=== PATIENT | female | born 1970 | race Caucasian/White ===

== ENCOUNTER → 2020-07-24 11:45 | Outpatient (BNVA) | payer MEDICAID, SELFPAY | PROVIDERS: PCP Nurse Practitioner Family; Referring Provider Nurse Practitioner Family; Visit Provider Nurse Practitioner Gerontology | DX: E11.65 Type 2 diabetes mellitus with hyperglycemia (principal); Z79.4 Long term (current) use of insulin; E78.5 Hyperlipidemia, unspecified; E55.9 Vitamin D deficiency, unspecified | CPT/HCPCS: 82947; 99212 ==

== ENCOUNTER 2020-07-25 11:49 | Emergency (ER) | payer MEDICAID, SELFPAY ==
[2020-07-25 11:59] VITALS: BP 111/71; BP 115/66; PULSE 86; PULSE 89; RESP 18; TEMP 37.1; O2SAT 99; BMI 37.5
--- NOTE | 2020-07-25 11:59 | ED_ITS ---
HPI - URI/Sore Throat General Chief Complaint: Chest Pain Stated Complaint: anxiety/cp Time Seen by Provider: 07/25/20 11:57 Source: patient Mode of arrival: ambulatory Limitations: language barrier ( patient is Amharic-speaking and all traction conducted a presence of charge coordinator) History of Present Illness HPI Narrative: 50-year-old female with past medical history that is significant for asthma /COPD, diabetes, hypertension, depression, anxiety disorder, chronic back pain, osteoarthritis and iron deficiency anemia presenting with complaint of resolved chest pain in the setting of an argument at GP's office. Patient reported that she went to the office for a routine visit without any complaints and there staff requested that appointment only done by proving that patient has negative COVID patient became upset and states she became emotional and there was a verbal argument during which she reported she has some palpitation like chest pain. States this is only brief and resolved no complaints did not really want to come here but was asked to come here. She additionally states she does have a negative COVID test which was recently done to prepare for this appointment however did not have the Opportunity to give this document to them. She denies any pains or discomforts states she does not really want to be here but would like to be discharged. She denies any SI or HI. Related Data Home Medications Medication Instructions Recorded Confirmed aspirin 81 mg tablet,delayed 81 mg PO DAILY 07/24/20 07/24/20 release blood sugar diagnostic #10 ea 07/24/20 07/24/20 blood-glucose meter #1 ea 07/24/20 07/24/20 cholecalciferol (vitamin D3) 50 50 mcg PO DAILY 07/24/20 07/24/20 mcg (2,000 unit) capsule docusate sodium 100 mg capsule 100 mg PO BID 07/24/20 07/24/20 dulaglutide 1.5 mg/0.5 mL 1.5 mg SUBCUT QWEEK 07/24/20 07/24/20 subcutaneous pen injector ferrous sulfate 325 mg (65 mg 325 mg PO DAILY 07/24/20 07/24/20 iron) tablet insulin glargine 100 unit/mL 8 unit SUBCUT BID ml 07/24/20 07/24/20 subcutaneous solution ipratropium 0.5 mg-albuterol 3 mg 3 ml INHALATION QID PRN 07/24/20 07/24/20 (2.5 mg base)/3 mL nebulization soln lancets 28 gauge #100 ea 07/24/20 07/24/20 levothyroxine 50 mcg capsule 50 mcg PO DAILY 07/24/20 07/24/20 loratadine 10 mg tablet 10 mg PO DAILY 07/24/20 07/24/20 metformin 500 mg tablet,extended 500 mg PO BID 07/24/20 07/24/20 release 24 hr naproxen 500 mg tablet 500 mg PO Q12H tab 07/24/20 07/24/20 pen needle, diabetic 32 gauge x #50 ea 07/24/20 07/24/20 quetiapine 100 mg tablet 100 mg PO BEDTIME 07/24/20 07/24/20 sertraline 50 mg tablet 50 mg PO DAILY 07/24/20 07/24/20 Previous Rx's Medication Instructions Recorded dicyclomine 20 mg tablet 20 mg PO TID #90 tab 06/17/20 insulin lispro 100 unit/mL 4 unit SUBCUT TID 90 Days #15 ml 07/24/20 subcutaneous pen Allergies Allergy/AdvReac Type Severity Reaction Status Date / Time lisinopril [LISINOPRIL] Allergy Unknown UNKNOWN Verified 07/24/20 12:03 Penicillins Allergy Unknown RASH Verified 07/24/20 12:03 sulfamethoxazole Allergy Unknown RASH Verified 07/24/20 12:03 trimethoprim Allergy Unknown RASH Verified 07/24/20 12:03 Review of Systems Review of Systems: Constitutional: No Weight loss, No Fever, No Chills, No Night Sweats, No Fatigue, No Malaise ENT/Mouth: No Hearing loss, No Ear Pain, No Nasal Congestion, No Sinus Pain, No Hoarseness, No sore throat, No Rhinorrhea, No Swallowing Difficulty Eyes: No Eye Pain, No Swelling, No Redness, No Foreign Body, No Discharge, No Vision Changes Cardiovascular: No Chest Pain, No SOB, No Dyspnea on Exertion, No Orthopnea, No Edema, No Palpitations Respiratory: No Cough, No Sputum, No Wheezing, No Smoke Exposure, No Dyspnea Gastrointestinal: No Nausea, No Vomiting, No Diarrhea, No Constipation, No abdominal Pain, No Hematochezia, No Melena Genitourinary: no irregular bleeding, No Dysuria, No Urinary Frequency, No Hematuria, No Urinary Incontinence, No Urgency, No Flank Pain, No Urinary Flow Changes, No Hesitancy Musculoskeletal: No joint pain, No Myalgias, No Joint Swelling Skin: No Skin Lesions, No rash Neuro: No Weakness, No Numbness, No Paresthesias, No Loss of Consciousness, No Dizziness, No Headache Psych: No Anxiety/Panic, No Depression, No SI/HI/AH/VH, No Social Issues Heme/Lymph: No Bruising, No Bleeding,No Lymphadenopathy Endocrine: No Polyuria, No Polydipsia, No Temperature Intolerance Yes all other systems are reviewed and are negative [facility] Past Medical History Medical History Anemia Anxiety Asthma Depression Hyperlipidemia LDL goal <100 Hypotension Migraine aura without headache Palpitations Type 2 diabetes mellitus with hyperglycemia, with long-term current use of insulin Vitamin D insufficiency Family History Family History (Updated 07/24/20 @ 12:04 by ANJANA oMntez) Mother Diabetes Brother Diabetes Social History Social History Advance Directives: No Advance Directives Information Provided: No Physical Exam Vital Signs: Vital Signs: Last Vital Signs Temp 98.7 F 07/25/20 11:59 Pulse 86 07/25/20 11:59 Resp 18 07/25/20 11:59 BP 115/66 07/25/20 11:59 Pulse Ox 99 07/25/20 11:59 Body Mass Index 37.5 reviewed Const: General: cooperative and healthy appearing; No acute distress or intoxicated appearing Nutritional Appearance: average body habitus Orientation/consciousness: patient oriented x3 HENMT: Head: Yes normal to inspection Ears: hearing grossly normal bilaterally Eyes: General: appearance normal, both eyes and all related structures Visual Perez: normal visual perez by confrontation Neck: Neck: Yes normal visual inspection and No tender Thyroid: Thyroid normal Chest: Chest palpation & inspection: normal inspection of the chest Breast/axilla inspection: normal inspection of the breasts Resp: Effort & Inspection: normal respiratory effort Auscultation: clear to auscultation bilaterally Cardio: Jugular venous distension: no JVD Rhythm: regular rhythm Heart sounds: S1 normal heart sound present and S2 normal heart sound present GI: Inspection: Yes normal to inspection Percussion: Yes normal to percussion Auscultation: normal bowel sounds : General: Yes no CVA tenderness Back/Spine/Pelvis: Back: no CVA tenderness Skin: General skin exam: no rashes or lesions noted Neuro: General: patient oriented x3 Extrem: General: Yes normal to inspection Course Course Course Narrative: in review 50-year-old female with significant history as noted above presenting with resolved palpitations like chest pain in the setting of a verbal argument. EKG on arrival shows normal sinus rhythm at rate 76 with no acute changes from the 10/03/2019 EKG. Patient states she feels fine and would like to go home and see her family and does not want to be here is not interested in having the episode of the palpitation like chest pain investigated here. I did discuss with her that given her history could be emotional verses cardiac in etiology however she states she is fine and understands and will come back if any concerns. No other social/ psychological concerns expressed at this time. MDM - URI/Sore Throat Medical Records Attestation: I reviewed the patient's medical records. Medical records narrative: admission/ discharge summary reviewed from 12/30/2018 visit ECG Data Interpretation: normal sinus rhythm Rate 76 AL interval [address] segment changes Compared to 10/03/2019 EKG Discharge Plan Discharge Clinical Impression: Emotional upset, Anxiety Patient Disposition: Home, Self-Care Instructions: Anxiety (ED) Prescriptions: No Action dicyclomine 20 mg tablet 20 mg PO TID Qty: 90 RF: 0 metformin 500 mg tablet extended release 24 hr 500 mg PO BID RF: 0 Lantus U-100 Insulin 100 unit/mL solution 8 unit subcut BID RF: 0 (DME) pen needle, diabetic [BD Ultra-Fine Haleigh Pen Needle] 32 gauge x 5/32 needle See Rx Instructions .ROUTE .MEDSUPPLY Qty: 50 RF: 0 (DME) lancets [FreeStyle Lancets] 28 gauge misc See Rx Instructions .ROUTE .MEDSUPPLY Qty: 100 RF: 0 (DME) blood-glucose meter [FreeStyle Lite Meter] Kit See Rx Instructions .ROUTE .MEDSUPPLY Qty: 1 RF: 0 (DME) FreeStyle Lite Strips Strip See Rx Instructions .ROUTE .MEDSUPPLY Qty: 10 RF: 0 quetiapine [Seroquel] 100 mg tablet 100 mg PO BEDTIME RF: 0 aspirin [Adult Low Dose Aspirin] 81 mg tablet,delayed release (DR/EC) 81 mg PO DAILY RF: 0 cholecalciferol (vitamin D3) 50 mcg (2,000 unit) capsule 50 mcg PO DAILY RF: 0 sertraline 50 mg tablet 50 mg PO DAILY RF: 0 levothyroxine 50 mcg capsule 50 mcg PO DAILY RF: 0 docusate sodium [Colace] 100 mg capsule 100 mg PO BID RF: 0 ferrous sulfate 325 mg (65 mg iron) tablet 325 mg PO DAILY RF: 0 ipratropium-albuterol 0.5 mg-3 mg(2.5 mg base)/3 mL solution for nebulization 3 ml inhalation QID PRNRF: 0 naproxen [Naprosyn] 500 mg tablet 500 mg PO Q12H RF: 0 loratadine 10 mg tablet 10 mg PO DAILY RF: 0 Trulicity 1.5 mg/0.5 mL pen injector 1.5 mg subcut QWEEK RF: 0 insulin lispro [Humalog KwikPen Insulin] 100 unit/mL insulin pen 4 unit subcut TID 90 Days Qty: 15 RF: 3 Referrals: Mehreen Sorto NP [Primary Care Provider] - 1 week
[2020-07-25 12:37] VITALS: PULSE 88
--- NOTE | 2020-07-26 | ECG_ITS ---
Test Reason : CHEST PAIN Blood Pressure : / mmHG Vent. Rate : 076 BPM Atrial Rate : 076 BPM P-R Int : 158 ms QRS Dur : 082 ms QT Int : 406 ms P-R-T Axes : 020 -45 022 degrees QTc Int : 456 ms Normal sinus rhythm Minimal criteria for LVH Abnormal ECG When compared with ECG of 03-OCT-2019 00:45, No significant change was found Referred By: Maggie Quevedo Electronically Signed By:SANDRA CHOUDHARY
== END 2020-07-25 12:39 | disposition home or self-care (01) ==
PROVIDERS: Emergency Provider Emergency Medicine; PCP Nurse Practitioner Family
DX: F41.9 Anxiety disorder, unspecified (principal); F48.9 Nonpsychotic mental disorder, unspecified; I10 Essential (primary) hypertension; E11.9 Type 2 diabetes mellitus without complications; F32.9 Major depressive disorder, single episode, unspecified; Z79.4 Long term (current) use of insulin; Z79.899 Other long term (current) drug therapy
CPT/HCPCS: 93005; 99283; 99284

== ENCOUNTER 2020-08-20 16:55 | Emergency (ER) | payer MEDICAID, SELFPAY ==
--- NOTE | 2020-08-20 17:20 | ED_ITS ---
HPI - General Adult General Stated complaint: Asthma Time Seen by Provider: 08/20/20 17:20 Related Data Home Medications Medication Instructions Recorded Confirmed aspirin 81 mg tablet,delayed 81 mg PO DAILY 07/24/20 07/24/20 release blood sugar diagnostic #10 ea 07/24/20 07/24/20 blood-glucose meter #1 ea 07/24/20 07/24/20 docusate sodium 100 mg capsule 100 mg PO BID 07/24/20 07/24/20 dulaglutide 1.5 mg/0.5 mL 1.5 mg SUBCUT QWEEK 07/24/20 07/24/20 subcutaneous pen injector ferrous sulfate 325 mg (65 mg 325 mg PO DAILY 07/24/20 07/24/20 iron) tablet insulin glargine 100 unit/mL 8 unit SUBCUT BID ml 07/24/20 07/24/20 subcutaneous solution ipratropium 0.5 mg-albuterol 3 mg 3 ml INHALATION QID PRN 07/24/20 07/24/20 (2.5 mg base)/3 mL nebulization soln lancets 28 gauge #100 ea 07/24/20 07/24/20 levothyroxine 50 mcg capsule 50 mcg PO DAILY 07/24/20 07/24/20 loratadine 10 mg tablet 10 mg PO DAILY 07/24/20 07/24/20 metformin 500 mg tablet,extended 500 mg PO BID 07/24/20 07/24/20 release 24 hr naproxen 500 mg tablet 500 mg PO Q12H tab 07/24/20 07/24/20 quetiapine 100 mg tablet 100 mg PO BEDTIME 07/24/20 07/24/20 sertraline 50 mg tablet 50 mg PO DAILY 07/24/20 07/24/20 Previous Rx's Medication Instructions Recorded dicyclomine 20 mg tablet 20 mg PO TID #90 tab 06/17/20 insulin lispro 100 unit/mL 4 unit SUBCUT TID 90 Days #15 ml 07/24/20 subcutaneous pen pen needle, diabetic 32 gauge x 1 ea MISCELLANEOUS BID #100 ea 08/06/20 cholecalciferol (vitamin D3) 50 2,000 unit PO DAILY #30 cap 08/20/20 mcg (2,000 unit) capsule Allergies Allergy/AdvReac Type Severity Reaction Status Date / Time lisinopril [LISINOPRIL] Allergy Unknown UNKNOWN Verified 07/24/20 12:03 Penicillins Allergy Unknown RASH Verified 07/24/20 12:03 sulfamethoxazole Allergy Unknown RASH Verified 07/24/20 12:03 trimethoprim Allergy Unknown RASH Verified 07/24/20 12:03 [facility] Past Medical History Medical History Anemia Anxiety Asthma Depression Hyperlipidemia LDL goal <100 Hypotension Migraine aura without headache Palpitations Type 2 diabetes mellitus with hyperglycemia, with long-term current use of insulin Vitamin D insufficiency Family History Family History (Updated 07/24/20 @ 12:04 by ANJANA Montez) Mother Diabetes Brother Diabetes Social History Social History Alcohol intake: never Course Course Course Narrative: 1719- This serves as a rapid medical exam. 50 yo female with past medical history of DM, asthma, HLD here with dry cough, LANDA x 5 days, chest and back pain with deep breathing, movement and palpation. Mild wheezing, stable saturation. Will check EKG, CXR, labs, 4 puffs of MDI.Deferred HPI, PE, ROS and further evaluation to primary provider. Discharge Plan Discharge Prescriptions: No Action dicyclomine 20 mg tablet 20 mg PO TID Qty: 90 RF: 0 pen needle, diabetic [BD Haleigh 2nd Gen Pen Needle] 32 gauge x 5/32 needle 1 ea miscellaneous BID Qty: 100 RF: 8 cholecalciferol (vitamin D3) 50 mcg (2,000 unit) capsule 2,000 unit PO DAILY Qty: 30 RF: 2 metformin 500 mg tablet extended release 24 hr 500 mg PO BID RF: 0 Lantus U-100 Insulin 100 unit/mL solution 8 unit subcut BID RF: 0 (DME) lancets [FreeStyle Lancets] 28 gauge misc See Rx Instructions .ROUTE .MEDSUPPLY Qty: 100 RF: 0 (DME) blood-glucose meter [FreeStyle Lite Meter] Kit See Rx Instructions .ROUTE .MEDSUPPLY Qty: 1 RF: 0 (DME) FreeStyle Lite Strips Strip See Rx Instructions .ROUTE .MEDSUPPLY Qty: 10 RF: 0 quetiapine [Seroquel] 100 mg tablet 100 mg PO BEDTIME RF: 0 aspirin [Adult Low Dose Aspirin] 81 mg tablet,delayed release (DR/EC) 81 mg PO DAILY RF: 0 sertraline 50 mg tablet 50 mg PO DAILY RF: 0 levothyroxine 50 mcg capsule 50 mcg PO DAILY RF: 0 docusate sodium [Colace] 100 mg capsule 100 mg PO BID RF: 0 ferrous sulfate 325 mg (65 mg iron) tablet 325 mg PO DAILY RF: 0 ipratropium-albuterol 0.5 mg-3 mg(2.5 mg base)/3 mL solution for nebulization 3 ml inhalation QID PRNRF: 0 naproxen [Naprosyn] 500 mg tablet 500 mg PO Q12H RF: 0 loratadine 10 mg tablet 10 mg PO DAILY RF: 0 Trulicity 1.5 mg/0.5 mL pen injector 1.5 mg subcut QWEEK RF: 0 insulin lispro [Humalog KwikPen Insulin] 100 unit/mL insulin pen 4 unit subcut TID 90 Days Qty: 15 RF: 3
[2020-08-20 17:21] VITALS: BP 146/78; PULSE 92; RESP 16; TEMP 36.8; O2SAT 96; BMI 37.5
--- NOTE | 2020-08-20 17:22 | XR_ITS ---
EXAMINATION: CHEST 2 VIEWS CLINICAL INFORMATION: Cough. COMPARISON: January 02, 2020. TECHNIQUE: PA and lateral views of the chest were obtained. FINDINGS: The cardiac silhouette is not enlarged. The mediastinal and hilar contours are unremarkable. There are neither pleural effusions nor pneumothoraces. There are no consolidations. The osseous structures are stable. Surgical clips are identified within the right upper quadrant. XR/XR chest 2V IMPRESSION: No evidence for acute disease.
[2020-08-20 21:18] LABS: Basophils Percent Auto 0.2 % (0-2); Hematocrit 39.9 % (37-47); Hemoglobin 13.4 g/dl (12.0-16.0); Imm Gran Abs Auto 0.07 X10*3/uL (0.00-0.03); Imm Gran Pct Auto 0.4 % (0.0-0.4); Lymphocytes Percent Auto 5.7 % (20-40); Mean Corpuscular HGB Conc 33.6 g/dl (31.0-35.0); Mean Corpuscular Hemoglobin 27.9 pg (27.0-33.0); Mean Platelet Volume 11.2 fL (9.4-12.3); Monocytes Absolute Auto 0.5 X10*3/uL (0.1-1.2); Monocytes Percent Auto 2.9 % (2-11); Neutrophils Absolute Auto 15.6 X10*3/uL (2.0-8.3); Neutrophils Percent Auto 90.8 % (45-73); Platelet Count 272 X10*3/uL (160-400); Red Blood Count 4.81 X10*6/uL (4.20-5.50); Red Cell Distribution Width 12.3 % (11.0-16.0); SCAN SMEAR FLAG 1; White Blood Count 17.2 X10*3/uL (4.8-10.8)
[2020-08-20 21:24] LABS: MANUAL DIFF FLAG SCAN
[2020-08-20 21:37] LABS: SLIDE REVIEW VERIFIED
[2020-08-20 21:56] LABS: Anion Gap 17 (12-20); Blood Urea Nitrogen 17 mg/dL (9-16); Calcium 9.7 mg/dL (8.4-10.2); Carbon Dioxide 31 mmol/L (22-29); Chloride 92 mmol/L (96-108); Creatinine Clr Calc Pharmacy 68.8; Estimated Glomerular Filt Rate > 60; Glucose Random 352 mg/dL (60-115); Potassium 4.4 mmol/l (3.3-5.1); Sodium 136 mmol/L (135-145)
== END 2020-08-21 00:23 | disposition left against medical advice (07) ==
PROVIDERS: Nurse Practitioner Family; Emergency Provider Emergency Medicine; PCP Nurse Practitioner Family
DX: J45.909 Unspecified asthma, uncomplicated (principal); Z79.899 Other long term (current) drug therapy
CPT/HCPCS: 36415; 71046; 80048; 85025; 99283

== ENCOUNTER → 2020-09-11 13:01 | Outpatient (BNVA) | payer MEDICAID, SELFPAY | PROVIDERS: PCP Nurse Practitioner Family; Visit Provider Dietitian, Registered ==

== ENCOUNTER 2020-09-17 00:51 | Emergency (ER) | payer MEDICAID, SELFPAY ==
[2020-09-17 01:01] VITALS: BP 115/47; PULSE 73; RESP 16; TEMP 36.6; O2SAT 98; BMI 41.6
--- NOTE | 2020-09-17 01:12 | ECG_ITS ---
Test Reason : CHEST PAIN Blood Pressure : / mmHG Vent. Rate : 080 BPM Atrial Rate : 080 BPM P-R Int : 164 ms QRS Dur : 082 ms QT Int : 396 ms P-R-T Axes : 037 -44 020 degrees QTc Int : 456 ms Normal sinus rhythm Left axis deviation Abnormal ECG When compared with ECG of 25-JUL-2020 11:59, No significant change was found Referred By: Frederick Jolly Electronically Signed By:OLIVIA MADERA MD
--- NOTE | 2020-09-17 01:12 | ED_ITS ---
HPI - Abdominal Pain General Chief Complaint: Chest Pain Stated Complaint: abdominal pain Time Seen by Provider: 09/17/20 01:03 Source: patient Mode of arrival: EMS Limitations: no limitations History of Present Illness HPI narrative: Patient with the history of chronic upper abdominal pain for about 2 months seen international account executive plan to get an endoscopy which has not been done yet comes here for the pain in the epigastric area going to the mid chest since last night patient taking Prilosec vomiting once or twice a day no abdominal distention no fever noted shortness of breath no diaphoresis patient received nitroglycerin by EMS without any significant relief MD elicited complaint: abdominal pain Pertinent past history: gastritis Onset (ago): month(s) (2) Pain Consistency: intermittent Location: epigastric Severity: mild Quality: dull Radiation: epigastric and chest Exacerbating factors: eating Relieving factors: nothing Associated symptoms: nausea and vomiting Related Data Home Medications Medication Instructions Recorded Confirmed aspirin 81 mg tablet,delayed 81 mg PO DAILY 07/24/20 07/24/20 release blood sugar diagnostic #10 ea 07/24/20 07/24/20 blood-glucose meter #1 ea 07/24/20 07/24/20 docusate sodium 100 mg capsule 100 mg PO BID 07/24/20 07/24/20 ferrous sulfate 325 mg (65 mg 325 mg PO DAILY 07/24/20 07/24/20 iron) tablet ipratropium 0.5 mg-albuterol 3 mg 3 ml INHALATION QID PRN 07/24/20 07/24/20 (2.5 mg base)/3 mL nebulization soln lancets 28 gauge #100 ea 07/24/20 07/24/20 levothyroxine 50 mcg capsule 50 mcg PO DAILY 07/24/20 07/24/20 loratadine 10 mg tablet 10 mg PO DAILY 07/24/20 07/24/20 metformin 500 mg tablet,extended 500 mg PO BID 07/24/20 07/24/20 release 24 hr naproxen 500 mg tablet 500 mg PO Q12H tab 07/24/20 07/24/20 quetiapine 100 mg tablet 100 mg PO BEDTIME 07/24/20 07/24/20 sertraline 50 mg tablet 50 mg PO DAILY 07/24/20 07/24/20 Previous Rx's Medication Instructions Recorded dicyclomine 20 mg tablet 20 mg PO TID #90 tab 06/17/20 insulin lispro 100 unit/mL 4 unit SUBCUT TID 90 Days #15 ml 07/24/20 subcutaneous pen pen needle, diabetic 32 gauge x 1 ea MISCELLANEOUS BID #100 ea 08/06/20 cholecalciferol (vitamin D3) 50 2,000 unit PO DAILY #30 cap 08/20/20 mcg (2,000 unit) capsule dulaglutide 0.75 mg/0.5 mL 0.75 mg SUBCUT QWEEK #2 ml 08/28/20 subcutaneous pen injector insulin glargine 100 unit/mL (3 24 unit SUBCUT BEDTIME #15 ml 08/28/20 mL) subcutaneous pen Allergies Allergy/AdvReac Type Severity Reaction Status Date / Time lisinopril [LISINOPRIL] Allergy Unknown UNKNOWN Verified 07/24/20 12:03 Penicillins Allergy Unknown RASH Verified 07/24/20 12:03 sulfamethoxazole Allergy Unknown RASH Verified 07/24/20 12:03 trimethoprim Allergy Unknown RASH Verified 07/24/20 12:03 Review of Systems Review of Systems Constitutional : No Weight loss, No Fever, No Chills ENT/Mouth : No sore throat, No Rhinorrhea Eyes: No Eye Pain, No Swelling Cardiovascular : +Chest Pain, no palpitations Respiratory : No Cough, No Sputum, no shortness of breath Gastrointestinal : ++Nausea, +Vomiting, No Diarrhea, +abdominal Pain, no black stools Genitourinary : No Dysuria, No Urinary Frequency Musculoskeletal : No joint pain, No Myalgias, No Joint Swelling Skin : No Skin Lesions, No rash Neuro : No Weakness, No Numbness, No Dizziness, No Headache Psych : No Anxiety/Panic, No Depression Heme/Lymph: No Bruising, No Lymphadenopathy Endocrine : No Polyuria, No Polydipsia All other systems reviewed and are negative Physical Exam Vital Signs: Vital Signs: Last Vital Signs Temp 97.9 F 09/17/20 01:01 Pulse 73 09/17/20 01:01 Resp 16 09/17/20 01:01 BP 115/47 L 09/17/20 01:01 Pulse Ox 98 09/17/20 01:01 Body Mass Index 41.6 Const: General: cooperative, healthy appearing, comfortable, no acute distress and well developed Orientation/consciousness: patient oriented x3 HENMT: Head: Yes normal to inspection and Yes normocephalic Ears: hearing g rossly normal bilaterally Mouth: Normal oral and palatal mucosa present Eyes: General: appearance normal, both eyes and all related structures Conjunctivae: conjunctivae normal Sclerae: sclerae normal Neck: Neck: Yes normal visual inspection, No lymphadenopathy, No midline deformity and Yes no JVD Chest: Chest palpation & inspection: normal inspection of the chest Resp: Effort & Inspection: normal respiratory effort Auscultation: clear to auscultation bilaterally, no crackles, no rales, no rhonchi and no wheezes Cardio: Jugular venous distension: no JVD Palpation: normal PMI Rate: regular rate Rhythm: regular rhythm Heart sounds: S1 normal heart sound present and S2 normal heart sound present GI: Inspection: Yes normal to inspection Palpation (GI): Soft to palpation and Tenderness to palpation present (GI) in the epigastrum Percussion: Yes normal to percussion Auscultation: normal bowel sounds : General: Yes no CVA tenderness Back/Spine/Pelvis: Back: no CVA tenderness Thoracic/Lumbar Spine: thoracic and lumbar spine normal to inspection Skin: General skin exam: no rashes or lesions noted Neuro: General: patient oriented x3 and no focal motor deficits Extrem: General: Yes normal to inspection, Yes no calf tenderness and No pedal edema MDM - Abdominal Pain MDM Narrative Medical decision making narrative: Patient has atypical chest pain with epigastric pain likely from gastritis will check the labs for lipase and LFTs patient already has cholecystectomy done in the past will also check troponin to rule out ACS which is very unlikely as pain is going on for long time. Patient signed out to pending labs and disposition Differential Diagnosis Differential diagnosis: Likely gastritis and pancreatitis Medical Records Attestation: I reviewed the patient's medical records. Lab Data Result diagrams: 09/17/20 01:41 09/17/20 01:41 Labs: Lab Results 09/17/20 Range/Units 01:41 WBC 5.0 (4.8-10.8) X10*3/uL RBC 3.94 L (4.20-5.50) X10*6/uL Hgb 11.1 L (12.0-16.0) g/dl Hct 33.9 L (37-47) % MCV 86.0 (80-98) fL MCH 28.2 (27.0-33.0) pg MCHC 32.7 (31.0-35.0) g/dl RDW 12.7 (11.0-16.0) % Plt Count 173 D (160-400) X10*3/uL MPV 11.5 (9.4-12.3) fL Immature Gran % (Auto) 1.0 H (0.0-0.4) % Neut % (Auto) 59.3 (45-73) % Lymph % (Auto) 31.3 (20-40) % [place] % (Auto) 7.0 (2-11) % Eos % (Auto) 1.2 (0-4) % Baso % (Auto) 0.2 (0-2) % Lymph # (Auto) 1.6 (1.2-4.9) X10*3/uL [place] # (Auto) 0.4 (0.1-1.2) X10*3/uL Eos # (Auto) 0.1 (0.0-0.4) X10*3/uL Baso # (Auto) 0.0 (0.0-0.2) X10*3/uL Abs Immat Gran (auto) 0.05 H (0.00-0.03) X10*3/uL Absolute Neuts (auto) 3.0 (2.0-8.3) X10*3/uL Absolute Nucleated RBC 0.000 (0.0-0.012) X10*3/uL Nucleated RBC % (auto) 0.0 (0.0-0.2) /100WBC ECG Data Attestation: I personally reviewed and interpreted this ECG as follows: Interpretation: Normal sinus rhythm left axis deviation heart rate 80 beats per minute normal intervals no acute ST-T changes impression no acute ischemia Discharge Plan Discharge Prescriptions: No Action dicyclomine 20 mg tablet 20 mg PO TID Qty: 90 RF: 0 pen needle, diabetic [BD Haleigh 2nd Gen Pen Needle] 32 gauge x 5/32 needle 1 ea miscellaneous BID Qty: 100 RF: 8 cholecalciferol (vitamin D3) 50 mcg (2,000 unit) capsule 2,000 unit PO DAILY Qty: 30 RF: 2 insulin glargine [Lantus Solostar U-100 Insulin] 100 unit/mL (3 mL) insulin pen 24 unit subcut BEDTIME Qty: 15 RF: 0 dulaglutide [Trulicity] 0.75 mg/0.5 mL pen injector 0.75 mg subcut QWEEK Qty: 2 RF: 1 metformin 500 mg tablet extended release 24 hr 500 mg PO BID RF: 0 (DME) lancets [FreeStyle Lancets] 28 gauge misc See Rx Instructions .ROUTE .MEDSUPPLY Qty: 100 RF: 0 (DME) blood-glucose meter [FreeStyle Lite Meter] Kit See Rx Instructions .ROUTE .MEDSUPPLY Qty: 1 RF: 0 (DME) FreeStyle Lite Strips Strip See Rx Instructions .ROUTE .MEDSUPPLY Qty: 10 RF: 0 quetiapine [Seroquel] 100 mg tablet 100 mg PO BEDTIME RF: 0 aspirin [Adult Low Dose Aspirin] 81 mg tablet,delayed release (DR/EC) 81 mg PO DAILY RF: 0 sertraline 50 mg tablet 50 mg PO DAILY RF: 0 levothyroxine 50 mcg capsule 50 mcg PO DAILY RF: 0 docusate sodium [Colace] 100 mg capsule 100 mg PO BID RF: 0 ferrous sulfate 325 mg (65 mg iron) tablet 325 mg PO DAILY RF: 0 ipratropium-albuterol 0.5 mg-3 mg(2.5 mg base)/3 mL solution for nebulization 3 ml inhalation QID PRNRF: 0 naproxen [Naprosyn] 500 mg tablet 500 mg PO Q12H RF: 0 loratadine 10 mg tablet 10 mg PO DAILY RF: 0 insulin lispro [Humalog KwikPen Insulin] 100 unit/mL insulin pen 4 unit subcut TID 90 Days Qty: 15 RF: 3 PMFSH Past Medical History Medical History Anemia Anxiety Asthma Depression Hyperlipidemia LDL goal <100 Hypotension Migraine aura without headache Palpitations Type 2 diabetes mellitus with hyperglycemia, with long-term current use of insulin Vitamin D insufficiency Family History Family History Mother Diabetes Brother Diabetes Social History Social History Alcohol intake: never Advance Directives: No
[2020-09-17] MEDS: Magnesium Hydrox/Alum Hydrox 30 ML ORAL.SUSP PO (01:28)
[2020-09-17] MEDS: Famotidine/PF 20 MG/2 ML VIAL IVPUSH (01:28)
[2020-09-17] MEDS: 0.9 % Sodium Chloride 1,000 ML 999 ML IVCONT (01:29)
[2020-09-17 01:46] LABS: Basophils Percent Auto 0.2 % (0-2); Eosinophils Absolute Auto 0.1 X10*3/uL (0.0-0.4); Eosinophils Percent Auto 1.2 % (0-4); Hematocrit 33.9 % (37-47); Hemoglobin 11.1 g/dl (12.0-16.0); Imm Gran Abs Auto 0.05 X10*3/uL (0.00-0.03); Lymphocytes Absolute Auto 1.6 X10*3/uL (1.2-4.9); Lymphocytes Percent Auto 31.3 % (20-40); MANUAL DIFF FLAG NO; Mean Corpuscular HGB Conc 32.7 g/dl (31.0-35.0); Mean Corpuscular Hemoglobin 28.2 pg (27.0-33.0); Mean Platelet Volume 11.5 fL (9.4-12.3); Monocytes Absolute Auto 0.4 X10*3/uL (0.1-1.2); Neutrophils Percent Auto 59.3 % (45-73); Platelet Count 173 X10*3/uL (160-400); Red Blood Count 3.94 X10*6/uL (4.20-5.50); Red Cell Distribution Width 12.7 % (11.0-16.0)
[2020-09-17 02:00] VITALS: BP 106/55; PULSE 70; RESP 16; O2SAT 99
[2020-09-17 02:13] LABS: Alanine Aminotransferase 30 U/L (0-31); Albumin Level 3.6 g/dL (3.5-5.0); Alkaline Phosphatase 105 U/L (39-117); Anion Gap 10 (12-20); Aspartate Amino Transferase 27 U/L (5-31); Bilirubin Direct < 0.2 mg/dL (0.0-0.5); Bilirubin Total 0.5 mg/dL (0.0-1.0); Blood Urea Nitrogen 7 mg/dL (9-16); Calcium 6.5 mg/dL (8.4-10.2); Carbon Dioxide 31 mmol/L (22-29); Chloride 101 mmol/L (96-108); Creatinine Clr Calc Pharmacy 94.8; Estimated Glomerular Filt Rate > 60; Glucose Random 233 mg/dL (60-115); Potassium 3.7 mmol/L (3.3-5.1); Sodium 138 mmol/L (135-145); Total Protein 5.8 g/dL (6.5-8.0)
[2020-09-17 02:14] LABS: Lipase 36 U/L (8-78)
[2020-09-17 02:15] LABS: Troponin-I High Sensitivity 3.5 ng/L (<3.5-17.0)
--- NOTE | 2020-09-17 03:29 | PC.NURSE ---
Attending to bedside for re-eval
== END 2020-09-17 04:04 | disposition home or self-care (01) ==
PROVIDERS: Emergency Provider Internal Medicine
DX: R07.89 Other chest pain (principal); K29.00 Acute gastritis without bleeding; E83.51 Hypocalcemia; R10.13 Epigastric pain; E11.9 Type 2 diabetes mellitus without complications; Z79.4 Long term (current) use of insulin; Z90.49 Acquired absence of other specified parts of digestive tract; Z79.899 Other long term (current) drug therapy
CPT/HCPCS: 36415; 80048; 80076; 83690; 84484; 85025; 93005; 96361; 96374; 99284

== ENCOUNTER → 2020-09-27 08:31 | Outpatient (BNVA) | payer MEDICAID, SELFPAY | PROVIDERS: PCP Nurse Practitioner Family; Visit Provider Nurse Practitioner Gerontology | DX: E11.65 Type 2 diabetes mellitus with hyperglycemia (principal); Z79.4 Long term (current) use of insulin ==

== ENCOUNTER → 2020-10-17 14:27 | Outpatient (BNVA) | payer MEDICAID, SELFPAY | PROVIDERS: PCP Nurse Practitioner Family; Visit Provider Internal Medicine | DX: R07.2 Precordial pain (principal); R06.02 Shortness of breath; I10 Essential (primary) hypertension; E11.8 Type 2 diabetes mellitus with unspecified complications; E78.5 Hyperlipidemia, unspecified; F17.200 Nicotine dependence, unspecified, uncomplicated | CPT/HCPCS: 93005; 99202 ==

== ENCOUNTER → 2020-10-19 14:29 | Outpatient (BNVA) | payer MEDICAID, SELFPAY | PROVIDERS: PCP Nurse Practitioner Family; Visit Provider Urology | DX: R39.15 Urgency of urination (principal) | CPT/HCPCS: 51798; 81002; 99202 ==

== ENCOUNTER → 2020-10-23 13:30 | Outpatient (BNVA) | payer MEDICAID, SELFPAY | PROVIDERS: PCP Nurse Practitioner Family; Visit Provider Dietitian, Registered ==

== ENCOUNTER → 2020-11-09 08:36 | Outpatient (REF) | payer MEDICAID, SELFPAY ==
--- NOTE | ~2020-11-09 | NM_ITS ---
Myocardial perfusion study Indication: Precordial chest pain to evaluate for myocardial ischemia Technique: The patient was brought in for a Lexiscan perfusion study on 11/09/2020. Patient performed low-level exercise and was injected 0.4 mg of Lexiscan intravenously. Within a minute of injection, 35 mCi of sestamibi was given intravenously. Images were obtained using the SPECT gamma camera interlaced with the gating device. Images were obtained in supine position. Resting perfusion study was performed on 11/12/2020. Patient was administered 35 mCi of sestamibi intravenously at rest. Images were then obtained in supine position. Images obtained with and without CT attenuation. Total DLP 106 mGy-cm. Images were processed with the software and compared side to side in short axis, horizontal long axis and vertical long axis views. Findings: The stress perfusion study showed non attenuated images show normal uptake of radiotracer in all segments of LV myocardium. Attenuation corrected images show mildly reduced uptake in the distal anterior and apex of the LV myocardium.. The gated study shows normal LV systolic function with calculated LVEF of greater than 55%. LV cavity is normal in size. The gated study shows normal systolic wall thickening and contraction of segments. Resting study shows no change in perfusion pattern compared to stress perfusion study. Gating at rest reveals normal systolic wall motion with ejection fraction at 58%. The findings are consistent with normal myocardial perfusion. NM/NM michelet perf SPECT rest & str Impression: 1. Myocardial perfusion imaging study shows normal myocardial perfusion 2. Gated LVEF is 58% 3. Transient ischemic dilatation not present EKG is nondiagnostic for ischemia
--- NOTE | 2020-11-09 08:41 | CA_ITS ---
Acquisition Time: 2020-11-09 10:24:28 Total Exercise Time: 00:02:00 Test Indications: PRECORDIAL CHEST PAIN Medications: METFORMIN INSULIN LEVOTHYRINE ASA Protocol: LEXISCAN Max HR: 104 BPM 61% of Pred: 170 BPM Max BP: 130/080 mmHG Max Work Load: 1.0 METS Pharmacological stress test using Lexiscan. Pt tolerated well, denies any anginal sx. SX of mild dyspnea reversed with Aminophyline 75 mg IV. EKG with no arrhythmias, non-diagnostic for ischemia. Nuclear images to follow. Normotensive response to test. Test reviewed with Dr. Mojica. Referred By: Ajay Mojica Overread By: Karo Rinaldi NP
--- NOTE | 2020-11-09 08:41 | CA_ITS ---
Transthoracic Echocardiogram Patient (Last, First, Middle): Shannon Aviles, Gender: Female Date of : 1970 Age: 50 Procedure Date: 11/09/2020 Procedure Type: Transthoracic Echocardiogram Location: OP Height: 152.4 cm Weight: 84.82 kg BSA: 1.81 m2 Heart Rate: bpm BP: 122 / 70 mmHg Clinical Rehabilitation Liaison: Referring MD: Ajay Mojica MD Symptoms: R07.2 - Precordial pain Study Quality: Fair ECG Rhythm: Sinus Conclusions: - The left ventricular systolic function is normal. The visually estimated ejection fraction is between 55-60%. - No obvious valvular pathology seen on this study. Findings Left Ventricle Normal left ventricular cavity size. There is normal left ventricular wall thickness. The left ventricular systolic function is normal. The visually estimated ejection fraction is between 55-60%. The calculated ejection fraction is 54% by biplane method. There is no evidence of regional wall motion abnormalities. Diastolic function is normal for age. Right Ventricle Normal right ventricular cavity size and systolic function. Atria Both atria are normal in size. Aortic Valve There is a normal trileaflet aortic valve. There is no aortic valve stenosis. There is no aortic valve regurgitation. Mitral Valve The mitral valve appears normal. There is trace mitral valve regurgitation. There is no mitral valve stenosis. Pulmonic Valve The pulmonic valve was not well visualized. Tricuspid Valve Normal tricuspid valve structure. There is mild tricuspid valve regurgitation. The pulmonary artery systolic pressure is normal. Great Vessels The aortic annulus, sinuses of valsalva, and asc aorta are normal in size. Venous The inferior vena cava is normal in size and collapses greater than 50% with inspiration. Pericardium/Pleural There is no evidence of pericardial effusion. Prior Study Comparison No prior study available for comparison. Recommendations, Care & Conclusions No obvious valvular pathology seen on this study. Measurements 2D Linear Measurements IVSd: 1.08 0.6-0.9/0.6-1.0 cm LVIDd: 4.43 3.9-5.3/4.2-5.9 cm LVIDd Index: 2.45 2.4-3.2/2.2-3.1 cm/m2 LVIDs: 3.12 2.0-3.6 cm LVPWd: 1.01 0.7-1.1 cm Ao Root: 2.70 2.1-3.5 cm LA Diam: 3.30 2.7-3.8/3.0-4.0 cm LAIDs Index: 1.82 1.5-2.3 cm/m2 LV Mass: 197.84 67-162/88-224 g LV Mass Index: 109.30 43-95/49-115 g/m2 LVOT Diam: 2.00 3.0+(-)1.3 cm 2D Systolic Function EF 4C: 57.10 >55% EF 2C: 52.00 >55% EF BiP: 54.20 >55% Mitral Valve MV Pk E: 0.96 MV PK A: 1.25 MV Decel Time: 169.00 E/A: 0.80 E'Lateral: 8.61 E'Medial: 10.20 E/E' Med: 9.40 E/E' Lat: 11.10 PHT: 50.00 MVA PHT: 4.40 Decel [place]: 5.68 Aortic Valve AoV Pk New: 1.54 AoV Mn New: 0.95 AoV VTI: 0.32 AoV Pk Grad: 9.00 Aov Mn Grad: 4.00 CHASTITY Cont.VTI: 2.10 LVOT LVOT Pk New: 0.86 LVOT Mn New: 0.60 LVOT VTI: 0.22 LVOT Pk Grad: 3.00 LVOT Mn Grad: 2.00 LVOT Diam: 2.00 LVOT Area: 3.14 Diastolic Function MV Pk E: 0.96 MV Pk A: 1.25 E/A: 0.80 E'Medial: 10.20 E/E' Med: 9.40 E' Laterial: 8.61 E/E' Lat: 11.10 Tricuspid Valve TR Pk New: 2.20 TR Pk Grad: 19.00 RA Press: 3.00 RVSP: 22.00 Great Vessels Aorta Ao Root-2D: 2.70 2.0-3.7 cm Ao Asc: 2.90 2.1-3.4 cm Pulmonary Valve PV Pk New: 1.33 Peak PV Grad: 7.00 Updated in Other Vendor System with Status of Final Ajay Mojica MD electronically signed on 11/10/2020 2:02:45 PM with status of Final
== END ==
LOC: HO.CARD 08:36
PROVIDERS: Visit Provider Internal Medicine
DX: R07.2 Precordial pain (principal)
CPT/HCPCS: 78452; 93017; 93306; A9500; J0280; J2785

== ENCOUNTER 2020-11-13 23:23 | Emergency (ER) | payer MEDICAID, SELFPAY ==
--- NOTE | 2020-11-13 23:28 | ECG_ITS ---
Test Reason : CP/SOB Blood Pressure : / mmHG Vent. Rate : 083 BPM Atrial Rate : 083 BPM P-R Int : 148 ms QRS Dur : 084 ms QT Int : 384 ms P-R-T Axes : 033 -49 023 degrees QTc Int : 451 ms Normal sinus rhythm Left anterior fascicular block Abnormal ECG When compared with ECG of 17-SEP-2020 01:05, No significant change was found Referred By: Generic ED Physician Electronically Signed By:Chadd Abad
[2020-11-14 00:12] VITALS: BP 164/75; PULSE 83; RESP 20; TEMP 36.4; O2SAT 100
[2020-11-14 00:53] VITALS: BP 152/59; PULSE 74; PULSE 77; RESP 15; TEMP 36.8; O2SAT 98; BMI 76.9
--- NOTE | 2020-11-14 04:04 | PC.NURSE ---
Late Entry: Pt arrived to ED at approximately 2323 with c/o Chest pain. Ekg performed upon arrival Vitals were taken at 0012 Pt moved to room 22 at 0042. Once in the room, patient placed on monitor by Alisha HENAO. Vickie RN called computer engineering technologist for the triage. Heidy computer engineering technologist arrived to bedside and Vickie attempted to triage patient. Daughter of the patient, who was at the bedside, became upset that the computer engineering technologist was asking questions to the patient instead of her. Both Vickie and computer engineering technologist explained that it was hospital policy to have an computer engineering technologist if there was a language barrier. Mother and daughter started to escalate and voices were raised. Trish, community relations director, called for a security standby due to the raised voices. Security very politely asked if everything was ok and daughter became upset that security checked in. Multiple RN's attempted to calm mother and daughter. Dr. Jolly was at the bedside attempting to see the patient. Per Heidy the computer engineering technologist, daughter was upset that we weren't allowing her to translate. Mother proceeded to stand at the bedside yelling and ripped off her monitor leads. Multiple staff members tried to explain the importance of staying to be evaluated. Mother and daughter were not agreeable to this plan. Security escorting patient out of the ED and they made it as far as the fish tank in the waiting room. Again, mother and daughter with raised voices. Complaining about the facility but refusing to stay for care. Security asked both parties multiple times to please exit the ED. Shannon and her daughter continued to argue. We explained they either need to be seen or need to leave the department. Daughter moved towards the middle of the waiting area. Again arguing with security. At this point, the daughter went over to the registration desk and yelled you, you fucking cunt and attempted to lean over the registration area. At this time, security placed hands on the daughter and attempted to remove her from the Emergency department. [employer] was notified. As the daughter exited the building, she had an anxiety type event and was then brought in by staff for evaluation. Shannon continued to yell at security. At no time did this patient exhibit signs of chest pain or shortness of breath. She continued to yell and argue with security. Shannon's picked her up outside of the ED as she continued to refuse evaluation. The nursing supervisor wrapping room was notified of the event.
== END 2020-11-14 01:28 | disposition left against medical advice (07) ==
PROVIDERS: Emergency Provider Emergency Medicine; PCP Nurse Practitioner Family
DX: R07.9 Chest pain, unspecified (principal); I10 Essential (primary) hypertension; E78.5 Hyperlipidemia, unspecified; F17.200 Nicotine dependence, unspecified, uncomplicated; E11.9 Type 2 diabetes mellitus without complications; Z79.4 Long term (current) use of insulin
CPT/HCPCS: 93005; 99283; 99284

== ENCOUNTER → 2020-11-23 12:22 | Outpatient (BNVA) | payer MEDICAID, SELFPAY | PROVIDERS: PCP Nurse Practitioner Family; Visit Provider Dietitian, Registered | DX: E11.65 Type 2 diabetes mellitus with hyperglycemia (principal); Z79.4 Long term (current) use of insulin | CPT/HCPCS: 97803 ==

== ENCOUNTER 2022-01-06 17:20 | Emergency (ER) | payer MEDICAID, SELFPAY ==
--- NOTE | ~2022-01-06 | XR_ITS ---
EXAMINATION: XR CHEST CLINICAL INFORMATION: Shortness of breath COMPARISON: 08/20/2020 TECHNIQUE: Frontal view of the chest was obtained. FINDINGS: No significant abnormality is noted involving the heart, lungs, mediastinum, bony thorax or soft tissues. XR/XR chest 1V IMPRESSION: Unremarkable examination.
[2022-01-06 17:32] VITALS: BP 187/113; PULSE 97; RESP 18; TEMP 36.9; O2SAT 99; BMI 36.5
[2022-01-06 17:47] LABS: MANUAL DIFF FLAG NO
[2022-01-06 17:50] LABS: Basophils Percent Auto 0.2 % (0-2); Eosinophils Absolute Auto 0.2 X10*3/uL (0.0-0.4); Eosinophils Percent Auto 2.1 % (0-4); Hemoglobin 12.9 g/dl (12.0-16.0); Imm Gran Abs Auto 0.06 X10*3/uL (0.00-0.03); Imm Gran Pct Auto 0.7 % (0.0-0.4); Lymphocytes Absolute Auto 1.3 X10*3/uL (1.2-4.9); Lymphocytes Percent Auto 14.6 % (20-40); Mean Corpuscular HGB Conc 33.9 g/dl (31.0-35.0); Mean Corpuscular Hemoglobin 29.2 pg (27.0-33.0); Mean Platelet Volume 11.6 fL (9.4-12.3); Monocytes Absolute Auto 0.5 X10*3/uL (0.1-1.2); Monocytes Percent Auto 5.5 % (2-11); Neutrophils Percent Auto 76.9 % (45-73); Platelet Count 189 X10*3/uL (160-400); Red Blood Count 4.42 X10*6/uL (4.20-5.50); Red Cell Distribution Width 12.7 % (11.0-16.0); White Blood Count 9.1 X10*3/uL (4.8-10.8)
[2022-01-06 18:05] LABS: Anion Gap 13 (12-20); Blood Urea Nitrogen 6 mg/dL (9-16); Carbon Dioxide 30 mmol/L (22-29); Chloride 98 mmol/L (96-108); Creatinine Clr Calc Pharmacy 80.4; Estimated Glomerular Filt Rate > 60; Glucose Random 299 mg/dL (60-115); Sodium 137 mmol/L (135-145)
--- NOTE | 2022-01-06 18:29 | ED_ITS ---
HPI - SOB/Dyspnea General Chief Complaint: Upper Respiratory Symptoms Stated Complaint: Diff Breathing Weakness Time Seen by Provider: 01/06/22 18:29 Source: patient Mode of arrival: ambulatory Limitations: no limitations History of Present Illness HPI Narrative: Patient history of asthma been sick for last 2- 3 days using inhaler without much response dry cough and wheezing no fever no chills no chest pain no leg swelling patient does get similar episode in the past very often. Patient does have nebulizer but does not have the mass is unable to use it for last few days using inhaler with minimal response Related Data Home Medications Medication Instructions Recorded Confirmed aspirin 81 mg tablet,delayed 81 mg PO DAILY 07/24/20 10/17/20 release (Adult Low Dose Aspirin) blood sugar diagnostic (FreeStyle #10 ea 07/24/20 10/17/20 Lite Strips) blood-glucose meter (FreeStyle #1 ea 07/24/20 10/17/20 Lite Meter) docusate sodium 100 mg capsule 100 mg PO BID 07/24/20 10/17/20 (Colace) ferrous sulfate 325 mg (65 mg 325 mg PO DAILY 07/24/20 10/17/20 iron) tablet ipratropium 0.5 mg-albuterol 3 mg 3 ml INHALATION QID PRN 07/24/20 10/17/20 (2.5 mg base)/3 mL nebulization soln lancets 28 gauge (FreeStyle #100 ea 07/24/20 10/17/20 Lancets) levothyroxine 50 mcg capsule 50 mcg PO DAILY 07/24/20 10/17/20 loratadine 10 mg tablet 10 mg PO DAILY 07/24/20 10/17/20 metformin 500 mg tablet,extended 500 mg PO BID 07/24/20 10/17/20 release 24 hr naproxen 500 mg tablet (Naprosyn) 500 mg PO Q12H tab 07/24/20 10/17/20 quetiapine 100 mg tablet (Seroquel) 100 mg PO BEDTIME 07/24/20 10/17/20 sertraline 50 mg tablet 50 mg PO DAILY 07/24/20 10/17/20 insulin glargine 100 unit/mL (3 24 unit SUBCUT BEDTIME ml 09/27/20 10/17/20 mL) subcutaneous pen (Lantus Solostar U-100 Insulin) insulin lispro 100 unit/mL 4 unit SUBCUT TID ml 09/27/20 10/17/20 subcutaneous pen (Humalog KwikPen (U-100) Insulin) levofloxacin 500 mg tablet 500 mg PO DAILY 09/27/20 10/17/20 prednisone 10 mg tablet 10 mg PO DAILY 09/27/20 10/17/20 Previous Rx's Medication Instructions Recorded pen needle, diabetic 32 gauge x 1 ea MISCELLANEOUS BID #100 ea 08/06/20 (BD Haleigh 2nd Gen Pen Needle) glucose 4 gram chewable tablet 12 g PO Q15M PRN #30 tab 09/27/20 (Dex4 Glucose) dicyclomine 20 mg tablet 20 mg PO TID #90 tab 12/24/20 dulaglutide 0.75 mg/0.5 mL 0.75 mg (0.5 mL) SUBCUT QWEEK #2 ml 06/10/21 subcutaneous pen injector (Trulicity) cholecalciferol (vitamin D3) 50 50 mcg PO DAILY #30 cap 08/06/21 mcg (2,000 unit) capsule albuterol sulfate 2.5 mg (3 mL) INHALATION Q4-6H PRN 01/06/22 #90 ml benzonatate 200 mg capsule 200 mg PO TID PRN #30 cap 01/06/22 prednisone 20 mg tablet 40 mg PO DAILY #10 tab 01/06/22 tramadol 50 mg tablet 50 mg PO Q6H PRN #20 tab 01/06/22 Allergies Allergy/AdvReac Type Severity Reaction Status Date / Time lisinopril [LISINOPRIL] Allergy Unknown UNKNOWN Verified 09/27/20 09:36 Penicillins Allergy Unknown RASH Verified 09/27/20 09:36 sulfamethoxazole Allergy Unknown RASH Verified 09/27/20 09:36 trimethoprim Allergy Unknown RASH Verified 09/27/20 09:36 Review of Systems Review of Systems: Yes all other systems are reviewed and are negative PMFSH Past Medical History Medical History Anemia Anxiety Asthma Depression Essential hypertension Hyperlipidemia LDL goal <100 Hypotension Migraine aura without headache Other and unspecified hyperlipidemia Palpitations Smoking Type 2 diabetes mellitus with hyperglycemia, with long-term current use of insulin Type 2 diabetes mellitus with unspecified complications Vitamin D insufficiency Surgical History History of cholecystectomy Family History Family History Mother Diabetes Brother Diabetes Social History Social History Alcohol intake: never Advance Directives: No Advance Directives Information Provided: No Physical Exam Vital Signs: Vital Signs: Last Vital Signs Temp 98.2 F 01/06/22 21:26 Pulse 109 H 01/06/22 21:26 Resp 20 01/06/22 21:26 BP 154/67 H 01/06/22 21:26 Pulse Ox 94 01/06/22 21:26 BMI result Body Mass Index 36.5 Appearance: Alert. Oriented X3. Mild distress. Eyes: No pallor recur ENT: Pharynx normal. Oral Mucosa moist Neck: Normal inspection. Neck supple. CVS: Normal heart rate and rhythm. Pulses normal. Respiratory: Mild respiratory distress. Equal air entry bilateral, bilateral wheezing no rales Abdomen: Soft and nontender. Bowel sounds are present, no mass palpable, no CVA tenderness Skin: Skin warm and dry. Normal skin color. Normal skin turgor. Extremities: No lower extremity edema. No calf tenderness Neuro: Oriented X 3. No motor deficit. MDM - SOB/Dyspnea MDM Narrative Medical decision making narrative: Patient with history of asthma with increased shortness of breath and wheezing improved after IV steroid and nebulizer treatment chest x-ray negative COVID negative labs are stable discharge patient home Differential Diagnosis Differential diagnosis: Likely asthma with exacerbation Medical Records Attestation: I reviewed the patient's medical records. Lab Data Attestation: I reviewed the patient's lab results. Result diagrams: 01/06/22 17:43 01/06/22 17:43 Labs: Lab Results 01/06/22 01/06/22 01/06/22 Range/Units 17:43 17:43 17:43 WBC 9.1 (4.8-10.8) X10*3/uL RBC 4.42 (4.20-5.50) X10*6/uL Hgb 12.9 (12.0-16.0) g/dl Hct 38.0 (37.0-47.0) % MCV 86.0 (80.0-98.0) fL MCH 29.2 (27.0-33.0) pg MCHC 33.9 (31.0-35.0) g/dl RDW 12.7 (11.0-16.0) % Plt Count 189 (160-400) X10*3/uL MPV 11.6 (9.4-12.3) fL Immature Gran % (Auto) 0.7 H (0.0-0.4) % Neut % (Auto) 76.9 H (45-73) % Lymph % (Auto) 14.6 L (20-40) % [place] % (Auto) 5.5 (2-11) % Eos % (Auto) 2.1 (0-4) % Baso % (Auto) 0.2 (0-2) % Lymph # (Auto) 1.3 (1.2-4.9) X10*3/uL [place] # (Auto) 0.5 (0.1-1.2) X10*3/uL Eos # (Auto) 0.2 (0.0-0.4) X10*3/uL Baso # (Auto) 0.0 (0.0-0.2) X10*3/uL Abs Immat Gran (auto) 0.06 H (0.00-0.03) X10*3/uL Absolute Neuts (auto) 7.0 (2.0-8.3) x10*3/uL Absolute Nucleated RBC 0.000 (0.0-0.012) X10*3/uL Nucleated RBC % (auto) 0.0 (0.0-0.2) /100WBC Sodium 137 (135-145) mmol/L Potassium 4.0 (3.3-5.1) mmol/L Chloride 98 (96-108) mmol/L Carbon Dioxide 30 H (22-29) mmol/L Anion Gap 13 (12-20) BUN 6 L (9-16) mg/dL Creatinine 0.80 (0.5-1.4) mg/dL Estim Creat Clear Calc 80.4 Estimated GFR > 60 Random Glucose 299 H (60-115) mg/dL Calcium 9.0 D (8.4-10.2) mg/dL Influenza Type A (PCR) NEGATIVE (Negative) Influenza Type B (PCR) NEGATIVE (Negative) RSV RNA Qual (PCR) NEGATIVE (Negative) SARS-CoV-2 RNA (RT-PCR) NEGATIVE (Negative) Discharge Plan Discharge Clinical Impression: Asthma with acute exacerbation Patient Disposition: Home, Self-Care Instructions: Asthma (ED) Additional Instructions: Use your nebulizer every 4-6 hours as prescribed Take Prednisone as prescribed Cough drops as prescribed Medicine for headache Prescriptions: New albuterol sulfate 2.5 mg /3 mL (0.083 %) solution for nebulization 2.5 mg inhalation Q4-6H PRN (Reason: shortness of breath or wheezing) Qty: 90 0RF benzonatate 200 mg capsule 200 mg PO TID PRN (Reason: cough) Qty: 30 0RF prednisone 20 mg tablet 40 mg PO DAILY Qty: 10 0RF tramadol 50 mg tablet 50 mg PO Q6H PRN (Reason: pain) Qty: 20 0RF No Action pen needle, diabetic [BD Haleigh 2nd Gen Pen Needle] 32 gauge x 5/32 needle 1 ea miscellaneous BID Qty: 100 8RF dicyclomine 20 mg tablet 20 mg PO TID Qty: 90 0RF Trulicity 0.75 mg/0.5 mL pen injector 0.75 mg subcut QWEEK Qty: 2 4RF cholecalciferol (vitamin D3) 50 mcg (2,000 unit) capsule 50 mcg PO DAILY Qty: 30 1RF metformin 500 mg tablet extended release 24 hr 500 mg PO BID 0RF (DME) lancets [FreeStyle Lancets] 28 gauge misc See Rx Instructions .ROUTE .MEDSUPPLY Qty: 100 0RF Rx Instructions: As directed (DME) blood-glucose meter [FreeStyle Lite Meter] Kit See Rx Instructions .ROUTE .MEDSUPPLY Qty: 1 0RF Rx Instructions: As directed (DME) FreeStyle Lite Strips Strip See Rx Instructions .ROUTE .MEDSUPPLY Qty: 10 0RF Rx Instructions: As directed quetiapine [Seroquel] 100 mg tablet 100 mg PO BEDTIME 0RF aspirin [Adult Low Dose Aspirin] 81 mg tablet,delayed release (DR/EC) 81 mg PO DAILY 0RF sertraline 50 mg tablet 50 mg PO DAILY 0RF levothyroxine 50 mcg capsule 50 mcg PO DAILY 0RF docusate sodium [Colace] 100 mg capsule 100 mg PO BID 0RF ferrous sulfate 325 mg (65 mg iron) tablet 325 mg PO DAILY 0RF ipratropium-albuterol 0.5 mg-3 mg(2.5 mg base)/3 mL solution for nebulization 3 ml inhalation QID PRN0RF naproxen [Naprosyn] 500 mg tablet 500 mg PO Q12H 0RF loratadine 10 mg tablet 10 mg PO DAILY 0RF Lantus Solostar U-100 Insulin 100 unit/mL (3 mL) insulin pen 24 unit subcut BEDTIME 0RF insulin lispro [Humalog KwikPen Insulin] 100 unit/mL insulin pen 4 unit subcut TID 0RF levofloxacin 500 mg tablet 500 mg PO DAILY 0RF prednisone 10 mg tablet 10 mg PO DAILY 0RF glucose [Dex4 Glucose] 4 gram tablet,chewable 12 g PO Q15M PRN (Reason: hypoglycemia) Qty: 30 3RF Rx Instructions: until symptoms of low blood sugar are controlled Interventions: ED Discharge Assessment Last Done: 01/06/22 21:27 Discharge Date/Time: 01/06/22 21:36
[2022-01-06 18:39] LABS: Influenza A PCR NEGATIVE (Negative); Influenza B PCR NEGATIVE (Negative); Resp Syncy Virus RNA Qual PCR NEGATIVE (Negative); SARS COV2 PCR INHOUSE NEGATIVE (Negative)
[2022-01-06 19:47] VITALS: O2SAT 94
[2022-01-06 19:50] VITALS: BP 86/74; PULSE 100; RESP 22; O2SAT 94
[2022-01-06] MEDS: Albuterol/Iprat 2.5/0.5MG 3 ML AMPUL.NEB INHALE (20:08)
[2022-01-06] MEDS: Albuterol Sulfate (0.083%) 2.5 MG/3 ML VIAL.NEB 5 MG INHALE (20:08)
[2022-01-06 20:09] VITALS: PULSE 99; RESP 16; O2SAT 92
[2022-01-06] MEDS: methylPREDNISolone Sod Succ 125 MG/2 ML VIAL IVPUSH (20:14)
[2022-01-06 20:51] VITALS: BP 170/72; PULSE 104; TEMP 37.3; O2SAT 94
[2022-01-06 21:26] VITALS: BP 154/67; PULSE 109; RESP 20; TEMP 36.8; O2SAT 94
== END 2022-01-06 21:36 | disposition home or self-care (01) ==
PROVIDERS: Emergency Provider Internal Medicine
DX: J45.901 Unspecified asthma with (acute) exacerbation (principal); Z20.822 Contact with and (suspected) exposure to COVID-19; I10 Essential (primary) hypertension
CPT/HCPCS: 0241U; 36415; 71045; 80048; 85025; 94640; 94644; 96374; 99284; J2930

== ENCOUNTER 2022-01-07 17:27 | Emergency (ER) | payer MEDICAID, SELFPAY ==
[2022-01-07 17:48] VITALS: BP 142/72; PULSE 86; RESP 18; TEMP 36.9; O2SAT 96; BMI 36.1
[2022-01-07 19:41] LABS: Basophils Percent Auto 0.1 % (0-2); Hematocrit 36.2 % (37.0-47.0); Hemoglobin 12.3 g/dl (12.0-16.0); Imm Gran Pct Auto 0.6 % (0.0-0.4); Lymphocytes Absolute Auto 0.8 X10*3/uL (1.2-4.9); MANUAL DIFF FLAG SCAN; Mean Corpuscular Hemoglobin 29.1 pg (27.0-33.0); Mean Corpuscular Volume 85.8 fL (80.0-98.0); Mean Platelet Volume 11.6 fL (9.4-12.3); Monocytes Absolute Auto 0.5 X10*3/uL (0.1-1.2); Monocytes Percent Auto 3.5 % (2-11); Neutrophils Percent Auto 90.8 % (45-73); Platelet Count 228 X10*3/uL (160-400); Red Blood Count 4.22 X10*6/uL (4.20-5.50); Red Cell Distribution Width 12.9 % (11.0-16.0); SCAN SMEAR FLAG 1; White Blood Count 15.4 X10*3/uL (4.8-10.8)
[2022-01-07 19:48] LABS: Anion Gap 17 (12-20); Blood Urea Nitrogen 20 mg/dL (9-16); Calcium 9.7 mg/dL (8.4-10.2); Carbon Dioxide 27 mmol/L (22-29); Chloride 96 mmol/L (96-108); Creatinine Clr Calc Pharmacy 65.9; Estimated Glomerular Filt Rate > 60; Glucose Random 400 mg/dL (60-115); Sodium 136 mmol/L (135-145)
[2022-01-07 19:58] LABS: SLIDE REVIEW VERIFIED
--- NOTE | 2022-01-07 22:03 | PC.NURSE ---
This RN calling pt in the [facility] with no response. This RN contacting pt via phone due to hyperglycemia, this RN initially left a message. When this RN called again, a woman answered, stated that the phone number no longer belonged to [facility] and to stop calling.
== END 2022-01-07 22:16 | disposition left against medical advice (07) ==
PROVIDERS: Emergency Provider Emergency Medicine
DX: E11.65 Type 2 diabetes mellitus with hyperglycemia (principal)
CPT/HCPCS: 36415; 80048; 85025; 99283

== ENCOUNTER 2022-01-13 15:16 | Emergency (ER) | payer MEDICAID, SELFPAY ==
--- NOTE | 2022-01-13 15:22 | ED_ITS ---
HPI - Psych General Chief Complaint: Psychiatric Symptoms <Tom Mackay MD - Last Filed: 01/13/22 19:05> Stated Complaint: SI/HI <Tom Mackay MD - Last Filed: 01/13/22 19:05> Time Seen by Provider: 01/13/22 15:22 <Tom Mackay MD - Last Filed: 01/13/22 19:05> Source: family <Tom Mackay MD - Last Filed: 01/13/22 19:05> Mode of arrival: EMS <Tom Mackay MD - Last Filed: 01/13/22 19:05> Limitations: language barrier <Tom Mackay MD - Last Filed: 01/13/22 19:05> History of Present Illness HPI Narrative: patient agitated at home, aggressive <Tom Mackay MD - Last Filed: 01/13/22 19:05> Related Data Home Medications: Home Medications Medication Instructions Recorded Confirmed blood sugar diagnostic (FreeStyle #10 ea 07/24/20 10/17/20 Lite Strips) blood-glucose meter (FreeStyle #1 ea 07/24/20 10/17/20 Lite Meter) lancets 28 gauge (FreeStyle #100 ea 07/24/20 10/17/20 Lancets) albuterol sulfate 90 mcg/actuation 4 puff PO Q4-6H PRN 01/13/22 01/13/22 aerosol inhaler (ProAir HFA) dulaglutide 1.5 mg/0.5 mL 1.5 mg SUBCUT QWEEK 01/13/22 01/13/22 subcutaneous pen injector (Trulicity) gabapentin 100 mg capsule 2 cap PO TID 01/13/22 01/13/22 insulin glargine 100 unit/mL 20 unit SUBCUT QPM 01/13/22 01/13/22 subcutaneous solution (Lantus U-100 Insulin) <Tom Mackay MD - Last Filed: 01/13/22 19:05> Allergies/Adverse Reactions: Allergies Allergy/AdvReac Type Severity Reaction Status Date / Time lisinopril [LISINOPRIL] Allergy Unknown UNKNOWN Verified 09/27/20 09:36 Penicillins Allergy Unknown RASH Verified 09/27/20 09:36 sulfamethoxazole Allergy Unknown RASH Verified 09/27/20 09:36 trimethoprim Allergy Unknown RASH Verified 09/27/20 09:36 <Tom Mackay MD - Last Filed: 01/13/22 19:05> Review of Systems Review of Systems: Yes Unobtainable due to mental status <Tom Mackay MD - Last Filed: 01/13/22 19:05> Neurologic: Denies Sensory deficit (Neuro) <Tom Mackay MD - Last Filed: 01/13/22 19:05> [facility] Past Medical History Medical History: Medical History Anemia Anxiety Asthma Depression Essential hypertension Hyperlipidemia LDL goal <100 Hypotension Migraine aura without headache Other and unspecified hyperlipidemia Palpitations Smoking Type 2 diabetes mellitus with hyperglycemia, with long-term current use of insulin Type 2 diabetes mellitus with unspecified complications Vitamin D insufficiency <Tom Mackay MD - Last Filed: 01/13/22 19:05> Surgical History: Surgical History History of cholecystectomy <Tom Mackay MD - Last Filed: 01/13/22 19:05> Family History Family History: Family History Mother Diabetes Brother Diabetes <Tom Mackay MD - Last Filed: 01/13/22 19:05> Social History Social History: Social History Alcohol intake: never Advance Directives: No Advance Directives Information Provided: No <Tom Mackay MD - Last Filed: 01/13/22 19:05> Physical Exam Vital Signs: Vital Signs: Last Vital Signs Temp 97.7 F 01/14/22 07:53 Pulse 96 01/14/22 07:53 Resp 14 01/14/22 07:53 BP 150/71 H 01/14/22 07:53 Pulse Ox 92 01/14/22 07:53 BMI result Body Mass Index 43.0 <Tom Mackay MD - Last Filed: 01/13/22 19:05> Vital Signs: Last Vital Signs Temp 97.7 F 01/14/22 07:53 Pulse 96 01/14/22 07:53 Resp 14 01/14/22 07:53 BP 150/71 H 01/14/22 07:53 Pulse Ox 92 01/14/22 07:53 BMI result Body Mass Index 43.0 <SADAF Serrano - Last Filed: 01/14/22 08:22> Const: Other: agitated, screaming <Tom Mackay MD - Last Filed: 01/13/22 19:05> General: healthy appearing <Tom Mackay MD - Last Filed: 01/13/22 19:05> Nutritional Appearance: average body habitus <Tom Mackay MD - Last File d: 01/13/22 19:05> Orientation/consciousness: oriented to person and patient oriented x3 <Tom Mackay MD - Last Filed: 01/13/22 19:05> Limitations: no limitations <Tom Mackay MD - Last Filed: 01/13/22 19:05> HEENT: Head: Yes normal to inspection <Tom Mackay MD - Last Filed: 01/13/22 19:05> Ears: external ears normal <Tom Mackay MD - Last Filed: 01/13/22 19:05> General nose exam: Normal external nose present <Tom Mackay MD - Last Filed: 01/13/22 19:05> Mouth: Normal oral and palatal mucosa present and oropharynx normal <Tom Mackay MD - Last Filed: 01/13/22 19:05> Throat: Yes posterior oropharynx normal <Tom Mackay MD - Last Filed: 01/13/22 19:05> Eyes: General: appearance normal, both eyes and all related structures <Tom Mackay MD - Last Filed: 01/13/22 19:05> Neck: Other: supple <Tom Mackay MD - Last Filed: 01/13/22 19:05> Neck: Yes normal visual inspection <Tom Mackay MD - Last Filed: 01/13/22 19:05> Chest: Chest palpation & inspection: normal inspection of the chest <Tom Mackay MD - Last Filed: 01/13/22 19:05> Resp: Auscultation: clear to auscultation bilaterally <Tom Mackay MD - Last Filed: 01/13/22 19:05> Cardio: Jugular venous distension: no JVD <Tom Mackay MD - Last Filed: 01/13/22 19:05> Rate: regular rate <Tom Mackay MD - Last Filed: 01/13/22 19:05> Rhythm: regular rhythm <Tom Mackay MD - Last Filed: 01/13/22 19:05> Heart sounds: S1 normal heart sound present and S2 normal heart sound present <Tom Mackay MD - Last Filed: 01/13/22 19:05> GI: Inspection: Yes normal to inspection <Tom Mackay MD - Last Filed: 01/13/22 19:05> Palpation (GI): Soft to palpation, nontender and No hepatosplenomegaly present <Tom Mackay MD - Last Filed: 01/13/22 19:05> Auscultation: normal bowel sounds <Tom Mackay MD - Last Filed: 01/13/22 19:05> : General: Yes no CVA tenderness <Tom Mackay MD - Last Filed: 01/13/22 19:05> Back/Spine/Pelvis: Back: no CVA tenderness <Tom Mackay MD - Last Filed: 01/13/22 19:05> Skin: General skin exam: no rashes or lesions noted <Tom Mackay MD - Last Filed: 01/13/22 19:05> Neuro: General: oriented to person and patient oriented x3 <Tom Mackay MD - Last Filed: 01/13/22 19:05> Cranial nerves: Yes CN's II-XII intact bilaterally <Tom Mackay MD - Last Filed: 01/13/22 19:05> Motor exam (neuro): 5/5 motor strength present throughout <Tom Mackay MD - Last Filed: 01/13/22 19:05> Sensory Exam: No Sensory deficit (Neuro) <Tom Mackay MD - Last Filed: 01/13/22 19:05> Extrem: General: Yes normal to inspection <Tom Mackay MD - Last Filed: 01/13/22 19:05> Psych: Other: very agitated screaming, tearful <Tom Mackay MD - Last Filed: 01/13/22 19:05> Course Reevaluation(s) Reevaluation #1: Patient placed in physician observation at 7:04pm The indication for observation is that the patient needs more time to see if her depression and agitation improves or she will need to be admitted. At this time the patient is well developed well nourished, lungs clear, CV RRR, abd nontender, neuro is intact, she is tearful but less agitated, she has been removed from restraints <Tom Mackay MD - Last Filed: 01/13/22 19:05> Time: 19:05 <Tom Mackay MD - Last Filed: 01/13/22 19:05> Reevaluation #2: 82001/14/2022 Patient still awaiting evaluation. Physical exam unchanged from previous. Neurologically intact. Physician observation continues. <SADAF Serrano - Last Filed: 01/14/22 08:22> MDM - Psych Lab Data Result diagrams: : 01/13/22 18:17 01/13/22 18:17 <Tom Mackay MD - Last Filed: 01/13/22 19:05> Labs: Lab Results 01/13/22 01/13/22 01/13/22 Range/Units 16:26 17:26 17:27 WBC (4.8-10.8) X10*3/uL RBC (4.20-5.50) X10*6/uL Hgb (12.0-16.0) g/dl Hct (37.0-47.0) % MCV (80.0-98.0) fL MCH (27.0-33.0) pg MCHC (31.0-35.0) g/dl RDW (11.0-16.0) % Plt Count (160-400) X10*3/uL MPV (9.4-12.3) fL Immature Gran % (Auto) (0.0-0.4) % Neut % (Auto) (45-73) % Lymph % (Auto) (20-40) % [place] % (Auto) (2-11) % Eos % (Auto) (0-4) % Baso % (Auto) (0-2) % Lymph # (Auto) (1.2-4.9) X10*3/uL [place] # (Auto) (0.1-1.2) X10*3/uL Eos # (Auto) (0.0-0.4) X10*3/uL Baso # (Auto) (0.0-0.2) X10*3/uL Abs Immat Gran (auto) (0.00-0.03) X10*3/uL Absolute Neuts (auto) (2.0-8.3) x10*3/uL Absolute Nucleated RBC (0.0-0.012) X10*3/uL Nucleated RBC % (auto) (0.0-0.2) /100WBC Sodium (135-145) mmol/L Potassium (3.3-5.1) mmol/L Chloride (96-108) mmol/L Carbon Dioxide (22-29) mmol/L Anion Gap (12-20) BUN (9-16) mg/dL Creatinine (0.5-1.4) mg/dL Estim Creat Clear Calc Estimated GFR POC Glucose 283 H (60-115) mg/dL Random Glucose (60-115) mg/dL Calcium (8.4-10.2) mg/dL Total Bilirubin (0.0-1.0) mg/dL AST (5-31) U/L ALT (0-31) U/L Alkaline Phosphatase (39-117) U/L Total Protein (6.5-8.0) g/dL Albumin (3.5-5.0) g/dL Urine Color YELLOW Urine Appearance CLEAR Urine pH 7.0 (5.0-8.0) Ur Specific [place] 1.015 (1.005-1.025) Urine Protein 2+ H (NEG-TRACE) MG/DL Urine Glucose (UA) 500 H (NEG) MG/DL Urine Ketones 40 (NEG) MG/DL Urine Blood TRACE (NEG) Urine Nitrite NEG (NEG) Ur Leukocyte Esterase NEG (NEG) Urine RBC 0-2 (0) /HPF Urine WBC 0 (0-4) /HPF Ur Squamous Epith Cells 1+ /LPF Urine Bacteria 1+ /LPF Salicylates (15-30) mg/dL Urine Opiates Screen Not Detected (Not Detect) Urine Fentanyl Screen Not Detected (Not Detect) Acetaminophen (<30) mcg/mL Ur Barbiturates Screen Not Detected (Not Detect) Ur Phencyclidine Scrn Not Detected (Not Detect) Ur Amphetamines Screen Not Detected (Not Detect) U Benzodiazepines Scrn Not Detected (Not Detect) Urine Cocaine Screen Not Detected (Not Detect) U Marijuana (THC) Screen Not Detected (Not Detect) Ethyl Alcohol mg/dL COVID-19 ([facility]) (Negative) COVID-19 Clin Com 01/13/22 01/13/22 01/13/22 Range/Units 17:31 18:17 18:17 WBC 14.8 H (4.8-10.8) X10*3/uL RBC 5.04 (4.20-5.50) X10*6/uL Hgb 14.6 (12.0-16.0) g/dl Hct 43.0 (37.0-47.0) % MCV 85.3 (80.0-98.0) fL MCH 29.0 (27.0-33.0) pg MCHC 34.0 (31.0-35.0) g/dl RDW 12.6 (11.0-16.0) % Plt Count 230 (160-400) X10*3/uL MPV 11.1 (9.4-12.3) fL Immature Gran % (Auto) 1.9 H (0.0-0.4) % Neut % (Auto) 86.3 H (45-73) % Lymph % (Auto) 6.5 L (20-40) % [place] % (Auto) 4.8 (2-11) % Eos % (Auto) 0.2 (0-4) % Baso % (Auto) 0.3 (0-2) % Lymph # (Auto) 1.0 L (1.2-4.9) X10*3/uL [place] # (Auto) 0.7 (0.1-1.2) X10*3/uL Eos # (Auto) 0.0 (0.0-0.4) X10*3/uL Baso # (Auto) 0.0 (0.0-0.2) X10*3/uL Abs Immat Gran (auto) 0.28 H (0.00-0.03) X10*3/uL Absolute Neuts (auto) 12.8 H (2.0-8.3) x10*3/uL Absolute Nucleated RBC 0.000 (0.0-0.012) X10*3/uL Nucleated RBC % (auto) 0.0 (0.0-0.2) /100WBC Sodium 139 (135-145) mmol/L Potassium 3.6 (3.3-5.1) mmol/L Chloride 93 L (96-108) mmol/L Carbon Dioxide 31 H (22-29) mmol/L Anion Gap 19 (12-20) BUN 12 (9-16) mg/dL Creatinine 1.11 (0.5-1.4) mg/dL Estim Creat Clear Calc 63.6 Estimated GFR 52 POC Glucose (60-115) mg/dL Random Glucose 303 H (60-115) mg/dL Calcium 9.5 (8.4-10.2) mg/dL Total Bilirubin 0.9 (0.0-1.0) mg/dL AST 17 (5-31) U/L ALT 18 (0-31) U/L Alkaline Phosphatase 136 H D (39-117) U/L Total Protein 7.2 D (6.5-8.0) g/dL Albumin 4.1 (3.5-5.0) g/dL Urine Color Urine Appearance Urine pH (5.0-8.0) Ur Specific [place] (1.005-1.025) Urine Protein (NEG-TRACE) MG/DL Urine Glucose (UA) (NEG) MG/DL Urine Ketones (NEG) MG/DL Urine Blood (NEG) Urine Nitrite (NEG) Ur Leukocyte Esterase (NEG) Urine RBC (0) /HPF Urine WBC (0-4) /HPF Ur Squamous Epith Cells /LPF Urine Bacteria /LPF Salicylates < 5.0 L (15-30) mg/dL Urine Opiates Screen (Not Detect) Urine Fentanyl Screen (Not Detect) Acetaminophen < 1 (<30) mcg/mL Ur Barbiturates Screen (Not Detect) Ur Phencyclidine Scrn (Not Detect) Ur Amphetamines Screen (Not Detect) U Benzodiazepines Scrn (Not Detect) Urine Cocaine Screen (Not Detect) U Marijuana (THC) Screen (Not Detect) Ethyl Alcohol mg/dL COVID-19 ([facility]) Negative (Negative) COVID-19 Clin Com See Note 01/13/22 01/14/22 Range/Units 18:17 05:12 WBC (4.8-10.8) X10*3/uL RBC (4.20-5.50) X10*6/uL Hgb (12.0-16.0) g/dl Hct (37.0-47.0) % MCV (80.0-98.0) fL MCH (27.0-33.0) pg MCHC (31.0-35.0) g/dl RDW (11.0-16.0) % Plt Count (160-400) X10*3/uL MPV (9.4-12.3) fL Immature Gran % (Auto) (0.0-0.4) % Neut % (Auto) (45-73) % Lymph % (Auto) (20-40) % [place] % (Auto) (2-11) % Eos % (Auto) (0-4) % Baso % (Auto) (0-2) % Lymph # (Auto) (1.2-4.9) X10*3/uL [place] # (Auto) (0.1-1.2) X10*3/uL Eos # (Auto) (0.0-0.4) X10*3/uL Baso # (Auto) (0.0-0.2) X10*3/uL Abs Immat Gran (auto) (0.00-0.03) X10*3/uL Absolute Neuts (auto) (2.0-8.3) x10*3/uL Absolute Nucleated RBC (0.0-0.012) X10*3/uL Nucleated RBC % (auto) (0.0-0.2) /100WBC Sodium (135-145) mmol/L Potassium (3.3-5.1) mmol/L Chloride (96-108) mmol/L Carbon Dioxide (22-29) mmol/L Anion Gap (12-20) BUN (9-16) mg/dL Creatinine (0.5-1.4) mg/dL Estim Creat Clear Calc Estimated GFR POC Glucose 140 H (60-115) mg/dL Random Glucose (60-115) mg/dL Calcium (8.4-10.2) mg/dL Total Bilirubin (0.0-1.0) mg/dL AST (5-31) U/L ALT (0-31) U/L Alkaline Phosphatase (39-117) U/L Total Protein (6.5-8.0) g/dL Albumin (3.5-5.0) g/dL Urine Color Urine Appearance Urine pH (5.0-8.0) Ur Specific [place] (1.005-1.025) Urine Protein (NEG-TRACE) MG/DL Urine Glucose (UA) (NEG) MG/DL Urine Ketones (NEG) MG/DL Urine Blood (NEG) Urine Nitrite (NEG) Ur Leukocyte Esterase (NEG) Urine RBC (0) /HPF Urine WBC (0-4) /HPF Ur Squamous Epith Cells /LPF Urine Bacteria /LPF Salicylates (15-30) mg/dL Urine Opiates Screen (Not Detect) Urine Fentanyl Screen (Not Detect) Acetaminophen (<30) mcg/mL Ur Barbiturates Screen (Not Detect) Ur Phencyclidine Scrn (Not Detect) Ur Amphetamines Screen (Not Detect) U Benzodiazepines Scrn (Not Detect) Urine Cocaine Screen (Not Detect) U Marijuana (THC) Screen (Not Detect) Ethyl Alcohol < 10 mg/dL COVID-19 ([facility]) (Negative) COVID-19 Clin Com <Tom Mackay MD - Last Filed: 01/13/22 19:05> Lab Results 01/13/22 01/13/22 01/13/22 Range/Units 16:26 17:26 17:27 WBC (4.8-10.8) X10*3/uL RBC (4.20-5.50) X10*6/uL Hgb (12.0-16.0) g/dl Hct (37.0-47.0) % MCV (80.0-98.0) fL MCH (27.0-33.0) pg MCHC (31.0-35.0) g/dl RDW (11.0-16.0) % Plt Count (160-400) X10*3/uL MPV (9.4-12.3) fL Immature Gran % (Auto) (0.0-0.4) % Neut % (Auto) (45-73) % Lymph % (Auto) (20-40) % [place] % (Auto) (2-11) % Eos % (Auto) (0-4) % Baso % (Auto) (0-2) % Lymph # (Auto) (1.2-4.9) X10*3/uL [place] # (Auto) (0.1-1.2) X10*3/uL Eos # (Auto) (0.0-0.4) X10*3/uL Baso # (Auto) (0.0-0.2) X10*3/uL Abs Immat Gran (auto) (0.00-0.03) X10*3/uL Absolute Neuts (auto) (2.0-8.3) x10*3/uL Absolute Nucleated RBC (0.0-0.012) X10*3/uL Nucleated RBC % (auto) (0.0-0.2) /100WBC Sodium (135-145) mmol/L Potassium (3.3-5.1) mmol/L Chloride (96-108) mmol/L Carbon Dioxide (22-29) mmol/L Anion Gap (12-20) BUN (9-16) mg/dL Creatinine (0.5-1.4) mg/dL Estim Creat Clear Calc Estimated GFR POC Glucose 283 H (60-115) mg/dL Random Glucose (60-115) mg/dL Calcium (8.4-10.2) mg/dL Total Bilirubin (0.0-1.0) mg/dL AST (5-31) U/L ALT (0-31) U/L Alkaline Phosphatase (39-117) U/L Total Protein (6.5-8.0) g/dL Albumin (3.5-5.0) g/dL Urine Color YELLOW Urine Appearance CLEAR Urine pH 7.0 (5.0-8.0) Ur Specific [place] 1.015 (1.005-1.025) Urine Protein 2+ H (NEG-TRACE) MG/DL Urine Glucose (UA) 500 H (NEG) MG/DL Urine Ketones 40 (NEG) MG/DL Urine Blood TRACE (NEG) Urine Nitrite NEG (NEG) Ur Leukocyte Esterase NEG (NEG) Urine RBC 0-2 (0) /HPF Urine WBC 0 (0-4) /HPF Ur Squamous Epith Cells 1+ /LPF Urine Bacteria 1+ /LPF Salicylates (15-30) mg/dL Urine Opiates Screen Not Detected (Not Detect) Urine Fentanyl Screen Not Detected (Not Detect) Acetaminophen (<30) mcg/mL Ur Barbiturates Screen Not Detected (Not Detect) Ur Phencyclidine Scrn Not Detected (Not Detect) Ur Amphetamines Screen Not Detected (Not Detect) U Benzodiazepines Scrn Not Detected (Not Detect) Urine Cocaine Screen Not Detected (Not Detect) U Marijuana (THC) Screen Not Detected (Not Detect) Ethyl Alcohol mg/dL COVID-19 ([facility]) (Negative) COVID-19 Clin Com 01/13/22 01/13/22 01/13/22 Range/Units 17:31 18:17 18:17 WBC 14.8 H (4.8-10.8) X10*3/uL RBC 5.04 (4.20-5.50) X10*6/uL Hgb 14.6 (12.0-16.0) g/dl Hct 43.0 (37.0-47.0) % MCV 85.3 (80.0-98.0) fL MCH 29.0 (27.0-33.0) pg MCHC 34.0 (31.0-35.0) g/dl RDW 12.6 (11.0-16.0) % Plt Count 230 (160-400) X10*3/uL MPV 11.1 (9.4-12.3) fL Immature Gran % (Auto) 1.9 H (0.0-0.4) % Neut % (Auto) 86.3 H (45-73) % Lymph % (Auto) 6.5 L (20-40) % [place] % (Auto) 4.8 (2-11) % Eos % (Auto) 0.2 (0-4) % Baso % (Auto) 0.3 (0-2) % Lymph # (Auto) 1.0 L (1.2-4.9) X10*3/uL [place] # (Auto) 0.7 (0.1-1.2) X10*3/uL Eos # (Auto) 0.0 (0.0-0.4) X10*3/uL Baso # (Auto) 0.0 (0.0-0.2) X10*3/uL Abs Immat Gran (auto) 0.28 H (0.00-0.03) X10*3/uL Absolute Neuts (auto) 12.8 H (2.0-8.3) x10*3/uL Absolute Nucleated RBC 0.000 (0.0-0.012) X10*3/uL Nucleated RBC % (auto) 0.0 (0.0-0.2) /100WBC Sodium 139 (135-145) mmol/L Potassium 3.6 (3.3-5.1) mmol/L Chloride 93 L (96-108) mmol/L Carbon Dioxide 31 H (22-29) mmol/L Anion Gap 19 (12-20) BUN 12 (9-16) mg/dL Creatinine 1.11 (0.5-1.4) mg/dL Estim Creat Clear Calc 63.6 Estimated GFR 52 POC Glucose (60-115) mg/dL Random Glucose 303 H (60-115) mg/dL Calcium 9.5 (8.4-10.2) mg/dL Total Bilirubin 0.9 (0.0-1.0) mg/dL AST 17 (5-31) U/L ALT 18 (0-31) U/L Alkaline Phosphatase 136 H D (39-117) U/L Total Protein 7.2 D (6.5-8.0) g/dL Albumin 4.1 (3.5-5.0) g/dL Urine Color Urine Appearance Urine pH (5.0-8.0) Ur Specific [place] (1.005-1.025) Urine Protein (NEG-TRACE) MG/DL Urine Glucose (UA) (NEG) MG/DL Urine Ketones (NEG) MG/DL Urine Blood (NEG) Urine Nitrite (NEG) Ur Leukocyte Esterase (NEG) Urine RBC (0) /HPF Urine WBC (0-4) /HPF Ur Squamous Epith Cells /LPF Urine Bacteria /LPF Salicylates < 5.0 L (15-30) mg/dL Urine Opiates Screen (Not Detect) Urine Fentanyl Screen (Not Detect) Acetaminophen < 1 (<30) mcg/mL Ur Barbiturates Screen (Not Detect) Ur Phencyclidine Scrn (Not Detect) Ur Amphetamines Screen (Not Detect) U Benzodiazepines Scrn (Not Detect) Urine Cocaine Screen (Not Detect) U Marijuana (THC) Screen (Not Detect) Ethyl Alcohol mg/dL COVID-19 ([facility]) Negative (Negative) COVID-19 Clin Com See Note 01/13/22 01/14/22 Range/Units 18:17 05:12 WBC (4.8-10.8) X10*3/uL RBC (4.20-5.50) X10*6/uL Hgb (12.0-16.0) g/dl Hct (37.0-47.0) % MCV (80.0-98.0) fL MCH (27.0-33.0) pg MCHC (31.0-35.0) g/dl RDW (11.0-16.0) % Plt Count (160-400) X10*3/uL MPV (9.4-12.3) fL Immature Gran % (Auto) (0.0-0.4) % Neut % (Auto) (45-73) % Lymph % (Auto) (20-40) % [place] % (Auto) (2-11) % Eos % (Auto) (0-4) % Baso % (Auto) (0-2) % Lymph # (Auto) (1.2-4.9) X10*3/uL [place] # (Auto) (0.1-1.2) X10*3/uL Eos # (Auto) (0.0-0.4) X10*3/uL Baso # (Auto) (0.0-0.2) X10*3/uL Abs Immat Gran (auto) (0.00-0.03) X10*3/uL Absolute Neuts (auto) (2.0-8.3) x10*3/uL Absolute Nucleated RBC (0.0-0.012) X10*3/uL Nucleated RBC % (auto) (0.0-0.2) /100WBC Sodium (135-145) mmol/L Potassium (3.3-5.1) mmol/L Chloride (96-108) mmol/L Carbon Dioxide (22-29) mmol/L Anion Gap (12-20) BUN (9-16) mg/dL Creatinine (0.5-1.4) mg/dL Estim Creat Clear Calc Estimated GFR POC Glucose 140 H (60-115) mg/dL Random Glucose (60-115) mg/dL Calcium (8.4-10.2) mg/dL Total Bilirubin (0.0-1.0) mg/dL AST (5-31) U/L ALT (0-31) U/L Alkaline Phosphatase (39-117) U/L Total Protein (6.5-8.0) g/dL Albumin (3.5-5.0) g/dL Urine Color Urine Appearance Urine pH (5.0-8.0) Ur Specific [place] (1.005-1.025) Urine Protein (NEG-TRACE) MG/DL Urine Glucose (UA) (NEG) MG/DL Urine Ketones (NEG) MG/DL Urine Blood (NEG) Urine Nitrite (NEG) Ur Leukocyte Esterase (NEG) Urine RBC (0) /HPF Urine WBC (0-4) /HPF Ur Squamous Epith Cells /LPF Urine Bacteria /LPF Salicylates (15-30) mg/dL Urine Opiates Screen (Not Detect) Urine Fentanyl Screen (Not Detect) Acetaminophen (<30) mcg/mL Ur Barbiturates Screen (Not Detect) Ur Phencyclidine Scrn (Not Detect) Ur Amphetamines Screen (Not Detect) U Benzodiazepines Scrn (Not Detect) Urine Cocaine Screen (Not Detect) U Marijuana (THC) Screen (Not Detect) Ethyl Alcohol < 10 mg/dL COVID-19 ([facility]) (Negative) COVID-19 Clin Com <SADAF Serrano - Last Filed: 01/14/22 08:22> Discharge Plan Discharge Clinical Impression: Depression <Tom Mackay MD - Last Filed: 01/13/22 19:05> Patient Disposition: Still a Patient <Tom Mackay MD - Last Filed: 01/13/22 19:05> Prescriptions: No Action Lantus U-100 Insulin 100 unit/mL solution 20 unit subcut QPM 0RF gabapentin 100 mg capsule 2 cap PO TID 0RF albuterol sulfate [ProAir HFA] 90 mcg/actuation HFA aerosol inhaler 4 puff PO Q4-6H PRN (Reason: Wheezing) 0RF Trulicity 1.5 mg/0.5 mL pen injector 1.5 mg subcut QWEEK 0RF (DME) lancets [FreeStyle Lancets] 28 gauge misc See Rx Instructions .ROUTE .MEDSUPPLY Qty: 100 0RF Rx Instructions: As directed (DME) blood-glucose meter [FreeStyle Lite Meter] Kit See Rx Instructions .ROUTE .MEDSUPPLY Qty: 1 0RF Rx Instructions: As directed (DME) FreeStyle Lite Strips Strip See Rx Instructions .ROUTE .MEDSUPPLY Qty: 10 0RF Rx Instructions: As directed <Tom Mackay MD - Last Filed: 01/13/22 19:05>
[2022-01-13] MEDS: LORazepam 2 MG/ML VIAL IM ×2 (15:35→16:46)
[2022-01-13 15:36] VITALS: BMI 43.0
[2022-01-13] MEDS: Haloperidol Lactate 5 MG/ML VIAL IM ×2 (15:36→16:46)
--- NOTE | 2022-01-13 15:56 | PC.NURSE ---
Patient was brought in to emergency room for combative psych-related behavior. Patient was restrained on stretcher when brought in MD Mackay at bedside restraint order was given to continue to bed. Patient was removed from stretcher restrained and given im ativan and haldol. patient is a 1:1 respirations are even. Patient was offered blanket and something to drink. patient refused screaming at staff. will continue to monitor. Skin checks in place.
[2022-01-13 16:32] LABS: Glucose, Whole Blood 283 mg/dL (60-115)
[2022-01-13 17:37] LABS: Appearance Urine CLEAR; Color Urine YELLOW; Glucose Urine UA 500 MG/DL (NEG); Leukocyte Esterase Urine NEG (NEG); Nitrite Urine NEG (NEG); Specific Gravity - Urine 1.015 (1.005-1.025); UACC Culture Trigger NO; Urine Blood TRACE (NEG); Urine Ketones 40 MG/DL (NEG); Urine Protein 2+ MG/DL (NEG-TRACE)
[2022-01-13] MEDS: Insulin Lispro 100 UNIT/ML 3 ML VIAL SUBCUT (17:39)
[2022-01-13 17:45] LABS: Bacteria Urine 1+ /LPF; RBC Urine 0-2 /HPF (0); Squamous Epithelial Cell Urine 1+ /LPF; WBC Urine 0 /HPF (0-4)
[2022-01-13 17:50] LABS: COVID-19 Test Negative (Negative)
[2022-01-13] MEDS: Albuterol Sulfate 90 MCG 8 GM INHALER 4 PUFF INHALE (17:53)
[2022-01-13 17:55] LABS: Amphetamine Screen Urine Not Detected (Not Detect); Barbiturates, Urine Not Detected (Not Detect); Benzodiazepines Screen Urine Not Detected (Not Detect); Cannabinoid Screen Urine Not Detected (Not Detect); Cocaine Screen Urine Not Detected (Not Detect); Fentanyl, urine Not Detected (Not Detect); Opiate Screen Urine Not Detected (Not Detect); Phencyclidine Screen Urine Not Detected (Not Detect)
[2022-01-13 18:25] LABS: MANUAL DIFF FLAG NO
[2022-01-13 18:26] LABS: Basophils Percent Auto 0.3 % (0-2); Eosinophils Percent Auto 0.2 % (0-4); Hemoglobin 14.6 g/dl (12.0-16.0); Imm Gran Abs Auto 0.28 X10*3/uL (0.00-0.03); Imm Gran Pct Auto 1.9 % (0.0-0.4); Lymphocytes Percent Auto 6.5 % (20-40); Mean Corpuscular Volume 85.3 fL (80.0-98.0); Mean Platelet Volume 11.1 fL (9.4-12.3); Monocytes Absolute Auto 0.7 X10*3/uL (0.1-1.2); Monocytes Percent Auto 4.8 % (2-11); Neutrophils Absolute Auto 12.8 x10*3/uL (2.0-8.3); Neutrophils Percent Auto 86.3 % (45-73); Platelet Count 230 X10*3/uL (160-400); Red Blood Count 5.04 X10*6/uL (4.20-5.50); Red Cell Distribution Width 12.6 % (11.0-16.0); White Blood Count 14.8 X10*3/uL (4.8-10.8)
[2022-01-13 18:41] VITALS: BP 134/78; PULSE 101; RESP 18; O2SAT 91
[2022-01-13 18:41] LABS: Ethanol < 10 mg/dL
[2022-01-13 18:47] LABS: Alanine Aminotransferase 18 U/L (0-31); Albumin Level 4.1 g/dL (3.5-5.0); Alkaline Phosphatase 136 U/L (39-117); Anion Gap 19 (12-20); Aspartate Amino Transferase 17 U/L (5-31); Bilirubin Total 0.9 mg/dL (0.0-1.0); Blood Urea Nitrogen 12 mg/dL (9-16); Calcium 9.5 mg/dL (8.4-10.2); Carbon Dioxide 31 mmol/L (22-29); Chloride 93 mmol/L (96-108); Creatinine Clr Calc Pharmacy 63.6; Estimated Glomerular Filt Rate 52; Glucose Random 303 mg/dL (60-115); Potassium 3.6 mmol/L (3.3-5.1); Sodium 139 mmol/L (135-145); Total Protein 7.2 g/dL (6.5-8.0)
[2022-01-13 18:59] LABS: Acetaminophen LAB < 1 mcg/mL (<30); Salicylate < 5.0 mg/dL (15-30)
[2022-01-14 05:17] LABS: Glucose, Whole Blood 140 mg/dL (60-115)
[2022-01-14 05:52] VITALS: BP 151/73; PULSE 97; RESP 18; TEMP 36.4; O2SAT 90
--- NOTE | 2022-01-14 05:57 | PC.NURSE ---
Patient slept through the night, no distress observed/reported, patient was unable to assess by [facility] last evening due to S/P chemical restraint, POC at 0515 was 140, patient will be assessed by [facility] in the morning, patient was out of room for bathroom use and back, coherent, VSS, behavior non concerning at this time, will continue to monitor.
--- NOTE | 2022-01-14 07:02 | PC.NURSE ---
patient appears to remain asleep at present respirations are even and unlabored patient appears in no distress
[2022-01-14 07:53] VITALS: BP 150/71; PULSE 96; RESP 14; TEMP 36.5; O2SAT 92
[2022-01-14 13:06] LABS: Glucose, Whole Blood 261 mg/dL (60-115)
[2022-01-14] MEDS: Insulin Lispro 100 UNIT/ML 3 ML VIAL SUBCUT (13:18)
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
== END 2022-01-14 16:14 | disposition home or self-care (01) ==
PROVIDERS: Emergency Provider Emergency Medicine
DX: F33.1 Major depressive disorder, recurrent, moderate (principal); R45.851 Suicidal ideations; R45.850 Homicidal ideations; Z20.822 Contact with and (suspected) exposure to COVID-19; Z79.899 Other long term (current) drug therapy
CPT/HCPCS: 36415; 80053; 80143; 80179; 80307; 81001; 82077; 82947; 85025; 87635; 96372; 99284; 99285; J2060

== ENCOUNTER 2022-03-26 19:52 | Inpatient (IN) | payer MEDICAID, SELFPAY ==
--- NOTE | ~2022-03-26 | XR_ITS ---
EXAMINATION: XR CHEST CLINICAL INFORMATION: Shortness of breath and chest pain COMPARISON: Chest x-ray 01/06/2022 TECHNIQUE: Frontal view of the chest was obtained. FINDINGS: The lungs are clear. No airspace consolidation, pleural effusion, or pneumothorax. The cardiomediastinal silhouette is within normal limits. No acute osseous injury. XR/XR chest 1V IMPRESSION: No acute pulmonary process.
[2022-03-26 20:00] VITALS: BMI 27.4
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
--- NOTE | 2022-03-26 20:17 | ECG_ITS ---
Test Reason : SOB Blood Pressure : / mmHG Vent. Rate : 094 BPM Atrial Rate : 094 BPM P-R Int : 154 ms QRS Dur : 088 ms QT Int : 358 ms P-R-T Axes : 035 -38 045 degrees QTc Int : 447 ms Normal sinus rhythm Left axis deviation Minimal voltage criteria for LVH, may be normal variant ( R in aVL ) Abnormal ECG When compared with ECG of 13-NOV-2020 23:28, No significant change was found Referred By: Karina Langston Electronically Signed By:SANDRA CHOUDHARY
[2022-03-26] MEDS: Albuterol Sulfate (0.083%) 2.5 MG/3 ML VIAL.NEB 5 MG INHALE (20:29)
[2022-03-26 20:30] VITALS: PULSE 86; RESP 16; O2SAT 96
[2022-03-26] MEDS: 0.9 % Sodium Chloride 1,000 ML 999 ML IVCONT (21:11)
[2022-03-26] MEDS: Insulin Lispro 100 UNIT/ML 3 ML VIAL 20 UNIT SUBCUT (21:44)
[2022-03-26 22:30] VITALS: PULSE 93; RESP 18; O2SAT 93
[2022-03-26] MEDS: Albuterol Sulfate (0.083%) 2.5 MG/3 ML VIAL.NEB 10 MG INHALE (22:30)
[2022-03-26 23:26] LABS: MANUAL DIFF FLAG NO
[2022-03-26 23:28] LABS: Basophils Percent Auto 0.3 % (0-2); Eosinophils Percent Auto 0.1 % (0-4); Hematocrit 33.9 % (37.0-47.0); Hemoglobin 11.7 g/dl (12.0-16.0); Imm Gran Abs Auto 0.11 X10*3/uL (0.00-0.03); Lymphocytes Absolute Auto 2.1 X10*3/uL (1.2-4.9); Lymphocytes Percent Auto 18.8 % (20-40); Mean Corpuscular HGB Conc 34.5 g/dl (31.0-35.0); Mean Corpuscular Volume 83.9 fL (80.0-98.0); Mean Platelet Volume 11.3 fL (9.4-12.3); Monocytes Absolute Auto 0.6 X10*3/uL (0.1-1.2); Neutrophils Absolute Auto 8.3 x10*3/uL (2.0-8.3); Neutrophils Percent Auto 74.8 % (45-73); Platelet Count 222 X10*3/uL (160-400); Red Blood Count 4.04 X10*6/uL (4.20-5.50); Red Cell Distribution Width 12.3 % (11.0-16.0); White Blood Count 11.1 X10*3/uL (4.8-10.8)
[2022-03-26 23:31] LABS: Venous Blood Gas Refer to POC result
[2022-03-26 23:31] LABS: VBG Base Excess -2.6 mmol/L; VBG HCO3 22 mmol/L (22-26); VBG pCO2 39 mmHg; VBG pH 7.36 (7.32-7.43); VBG pO2 111 mmHg
[2022-03-26 23:43] LABS: COVID-19 Test Negative (Negative)
[2022-03-26 23:46] LABS: Acetone, serum QL Negative (Negative)
[2022-03-26 23:48] LABS: Troponin-I High Sensitivity < 3.5 ng/L (<3.5-17.0)
[2022-03-26 23:50] LABS: Alanine Aminotransferase 16 U/L (0-31); Albumin Level 4.3 g/dL (3.5-5.0); Alkaline Phosphatase 183 U/L (39-117); Anion Gap 15 (12-20); Aspartate Amino Transferase 10 U/L (5-31); Bilirubin Direct < 0.2 mg/dL (0.0-0.5); Bilirubin Total < 0.2 mg/dL (0.0-1.0); Blood Urea Nitrogen 12 mg/dL (9-16); Calcium 8.8 mg/dL (8.4-10.2); Carbon Dioxide 24 mmol/L (22-29); Chloride 102 mmol/L (96-108); Estimated Glomerular Filt Rate 58; Glucose Random 479 mg/dL (60-115); Magnesium 1.5 mg/dL (1.6-2.6); Potassium 3.4 mmol/L (3.3-5.1); Sodium 138 mmol/L (135-145); Total Protein 7.3 g/dL (6.5-8.0)
[2022-03-27] VITALS (9 sets, daily range): BP systolic 105–173; BP diastolic 50–87; PULSE 78–95; RESP 15–20; TEMP 36.3–36.7; O2SAT 95–97
[2022-03-27] MEDS: methylPREDNISolone Sod Succ 40 MG/ML VIAL IVPUSH (00:18)
[2022-03-27] MEDS: levoFLOXacin/D5W 750 MG/150 ML PIGGYBACK 100 MG IV (00:19)
[2022-03-27] MEDS: Magnesium Sulfate/H2O 2 GM/50 ML PIGGYBACK IV (00:19)
[2022-03-27] MEDS: Insulin Glargine,Hum.rec.anlog 100 UNIT/ML 10 ML VIAL 30 UNIT SUBCUT (00:19)
[2022-03-27] MEDS: Insulin Regular, Human 100 UNIT/ML 3 ML VIAL IVPUSH (00:20)
--- NOTE | 2022-03-27 05:15 | PC.NURSE ---
Took over assignment from [place] Sheriff. pt sleeping. Will continue to monitor.
[2022-03-27 05:33] LABS: Glucose, Whole Blood 347 mg/dL (60-115)
[2022-03-27 05:35] LABS: Glucose, Whole Blood 594 mg/dL (60-115)
--- NOTE | 2022-03-27 05:47 | PC.NURSE ---
At this time I placed a triage note on this pt who arrived at approximately 1999 on 03/26. I placed the triage note because I noticed that a triage note had not been placed on the pt. I was not present on the patient's arrival.
[2022-03-27 06:06] LABS: MANUAL DIFF FLAG NO
[2022-03-27 06:08] LABS: Basophils Percent Auto 0.4 % (0-2); Hematocrit 33.1 % (37.0-47.0); Hemoglobin 11.2 g/dl (12.0-16.0); Imm Gran Abs Auto 0.11 X10*3/uL (0.00-0.03); Imm Gran Pct Auto 1.3 % (0.0-0.4); Lymphocytes Absolute Auto 0.6 X10*3/uL (1.2-4.9); Lymphocytes Percent Auto 6.8 % (20-40); Mean Corpuscular HGB Conc 33.8 g/dl (31.0-35.0); Mean Corpuscular Hemoglobin 28.8 pg (27.0-33.0); Mean Corpuscular Volume 85.1 fL (80.0-98.0); Mean Platelet Volume 11.4 fL (9.4-12.3); Monocytes Absolute Auto 0.2 X10*3/uL (0.1-1.2); Monocytes Percent Auto 2.7 % (2-11); Neutrophils Absolute Auto 7.3 x10*3/uL (2.0-8.3); Neutrophils Percent Auto 88.8 % (45-73); Platelet Count 203 X10*3/uL (160-400); Red Blood Count 3.89 X10*6/uL (4.20-5.50); Red Cell Distribution Width 12.3 % (11.0-16.0); White Blood Count 8.2 X10*3/uL (4.8-10.8)
[2022-03-27 06:28] LABS: Anion Gap 18 (12-20); Blood Urea Nitrogen 12 mg/dL (9-16); Calcium 8.6 mg/dL (8.4-10.2); Carbon Dioxide 23 mmol/L (22-29); Chloride 102 mmol/L (96-108); Creatinine Clr Calc Pharmacy 81.2; Estimated Glomerular Filt Rate > 60; Glucose Random 397 mg/dL (60-115); Potassium 4.2 mmol/L (3.3-5.1); Sodium 139 mmol/L (135-145)
--- NOTE | 2022-03-27 07:25 | PM.IMHP ---
History of Present Illness Date of Service: 03/27/22 Chief Complaint: SOB 51-year-old female with past medical history of COPD presents to the hospital with persistent cough, dyspnea, sputum production. Patient reports that her symptoms are about 4-5 days ago, accompanied by cough and sputum production.. She was started on prednisone by her primary care physician and took 2 days of prednisone with no relief of her symptoms. She denies any fever or chills, no chest pain, no palpitations, no abdominal pain nausea or vomiting, no diarrhea constipation, no urinary symptoms and no lower extremity edema. On arrival to the ED patient hemodynamically stable with no abnormal vitals Labs are significant for WBC count of 11.1, hemoglobin 11.7, hematocrit 33.9, glucose of 594 labs otherwise unremarkable Chest x-ray negative for acute infection, COVID-19 negative Review of Systems Review of Systems: Yes all other systems are reviewed and are negative [facility] Medical History Anemia Anxiety Asthma Depression Essential hypertension Hyperlipidemia LDL goal <100 Hypotension Migraine aura without headache Other and unspecified hyperlipidemia Palpitations Smoking Type 2 diabetes mellitus with hyperglycemia, with long-term current use of insulin Type 2 diabetes mellitus with unspecified complications Vitamin D insufficiency Family History Mother Diabetes Brother Diabetes Surgical History History of cholecystectomy Social History Alcohol intake: never Advance Directives: No Advance Directives Information Provided: No Meds Allergies Allergy/AdvReac Type Severity Reaction Status Date / Time lisinopril [LISINOPRIL] Allergy Unknown UNKNOWN Verified 09/27/20 09:36 Penicillins Allergy Unknown RASH Verified 09/27/20 09:36 sulfamethoxazole Allergy Unknown RASH Verified 09/27/20 09:36 trimethoprim Allergy Unknown RASH Verified 09/27/20 09:36 Active Medications: Current Medications Acetaminophen (Acetaminophen 325 Mg Tablet) 650 mg PO Q6H PRN PRN Reason: Pain, Mild (Pain Scale 1-3) Albuterol/Ipratropium (Albuterol/Iprat 2.5/0.5mg 3 Ml Ampul.Neb) 3 ml INHALE RQ4H PRN PRN Reason: Shortness of Breath/Wheezing Albuterol/Ipratropium (Albuterol/Iprat 2.5/0.5mg 3 Ml Ampul.Neb) 3 ml INHALE RQ4H WHILE AWAKE [facility] Dextrose (Dextrose 50 % 25 Gm/50 Ml Syringe) 25 gm IVPUSH Q15M PRN; Protocol PRN Reason: per Hypoglycemia Standing Ord. Docusate Sodium (Docusate Sodium 100 Mg Capsule) 100 mg PO DAILY PRN PRN Reason: Constipation Enoxaparin Sodium (Enoxaparin Sodium 40 Mg/0.4 Ml Syringe) 40 mg SUBCUT Q24H [facility] Last Admin: 03/27/22 00:29 Dose: Not Given Glucose (Glucose Gel 15 Gm Gel..Gram.) 15 gm PO Q15M PRN; Protocol PRN Reason: per Hypoglycemia Standing Ord. Insulin Human Lispro (Insulin Lispro 100 Unit/Ml 3 Ml Vial) 0 unit SUBCUT QIDACHS [facility]; Protocol Methylprednisolone Sodium Succinate (Methylprednisolone Sod Succ 40 Mg/Ml Vial) 40 mg IVPUSH Q12H [facility] Last Admin: 03/27/22 00:29 Dose: Not Given Ondansetron HCl (Ondansetron Hcl 4 Mg/2 Ml Vial) 4 mg IVPUSH Q8H PRN PRN Reason: Nausea and Vomiting Pharmacy Consult (Consult Rx Perform Med Rec) 1 each MISCELLANE ONCE PRN PRN Reason: Consult order Sodium Chloride (0.9 % Sodium Chloride Flush 3 Ml Syringe) 3 ml IVFLUSH QSHIFT [facility] Home Medications Medication Instructions Recorded Confirmed Last Taken Type blood sugar diagnostic (FreeStyle #10 ea 07/24/20 03/27/22 Unknown History Lite Strips) blood-glucose meter (FreeStyle #1 ea 07/24/20 03/27/22 Unknown History Lite Meter kit) lancets 28 gauge (FreeStyle #100 ea 07/24/20 03/27/22 Unknown History Lancets) albuterol sulfate 90 mcg/actuation 4 puff PO Q4-6H PRN Wheezing 01/13/22 03/27/22 Unknown History aerosol inhaler (ProAir HFA) dulaglutide 1.5 mg/0.5 mL 1.5 mg subcut QWEEK 01/13/22 03/27/22 Unknown History subcutaneous pen injector (Trulicity) gabapentin 100 mg capsule 2 cap PO TID 01/13/22 03/27/22 Unknown History insulin glargine 100 unit/mL 20 unit subcut QPM 01/13/22 03/27/22 Unknown History subcutaneous solution (Lantus U-100 Insulin) Physical Exam Vital Signs and Narrative: Vital Signs: Last Vital Signs Temp 98.0 F 03/27/22 05:27 Pulse 82 03/27/22 05:27 Resp 16 03/27/22 05:27 BP 105/70 03/27/22 05:27 Pulse Ox 97 03/27/22 05:27 O2 Del Method 03/27/22 05:27 BMI result Body Mass Index 27.4 Const: General: cooperative and no acute distress Orientation/consciousness: patient oriented x3 Eyes: General: appearance normal, both eyes and all related structures Resp: Other: Has significant crackles bilaterally, expiratory wheezing Effort & Inspection: normal respiratory effort Cardio: Rate: regular rate Rhythm: regular rhythm GI: Palpation (GI): Soft to palpation Auscultation: normal bowel sounds Skin: General skin exam: no rashes or lesions noted Neuro: General: patient oriented x3 Cognition (Neuro): normal cognition Extrem: General: Yes normal to inspection and Yes no pedal edema Results Labs CBC and Chem 7: 03/27/22 06:01 03/27/22 06:01 Labs: Laboratory Results - last 24 hr 03/26/22 03/26/22 03/26/22 21:04 23:19 23:19 MCV 83.9 MCH 29.0 MCHC 34.5 RDW 12.3 Plt Count 222 MPV 11.3 Immature Gran % (Auto) 1.0 H Neut % (Auto) 74.8 H Lymph % (Auto) 18.8 L [place] % (Auto) 5.0 Eos % (Auto) 0.1 Baso % (Auto) 0.3 Lymph # (Auto) 2.1 [place] # (Auto) 0.6 Eos # (Auto) 0.0 Baso # (Auto) 0.0 Abs Immat Gran (auto) 0.11 H Absolute Neuts (auto) 8.3 Absolute Nucleated RBC 0.000 Nucleated RBC % (auto) 0.0 VBG pH VBG pCO2 VBG pO2 VBG HCO3 VBG O2 Saturation VBG Base Excess Anion Gap 15 Estim Creat Clear Calc TNP Estimated GFR 58 POC Glucose 594 H* Random Glucose 479 H* Calcium 8.8 D Magnesium 1.5 L Total Bilirubin < 0.2 Direct Bilirubin < 0.2 AST 10 D ALT 16 Alkaline Phosphatase 183 H D Total Protein 7.3 Albumin 4.3 Acetone, Qual COVID-19 ([facility]) COVID-19 Clin Com 03/26/22 03/26/22 03/26/22 23:19 23:19 23:25 MCV MCH MCHC RDW Plt Count MPV Immature Gran % (Auto) Neut % (Auto) Lymph % (Auto) [place] % (Auto) Eos % (Auto) Baso % (Auto) Lymph # (Auto) [place] # (Auto) Eos # (Auto) Baso # (Auto) Abs Immat Gran (auto) Absolute Neuts (auto) Absolute Nucleated RBC Nucleated RBC % (auto) VBG pH 7.36 VBG pCO2 39 VBG pO2 111 VBG HCO3 22 VBG O2 Saturation 99.0 VBG Base Excess -2.6 Anion Gap Estim Creat Clear Calc Estimated GFR POC Glucose Random Glucose Calcium Magnesium Total Bilirubin Direct Bilirubin AST ALT Alkaline Phosphatase Total Protein Albumin Acetone, Qual Negative COVID-19 ([facility]) Negative COVID-19 Clin Com See Note 03/27/22 03/27/22 03/27/22 05:24 06:01 06:01 MCV 85.1 MCH 28.8 MCHC 33.8 RDW 12.3 Plt Count 203 MPV 11.4 Immature Gran % (Auto) 1.3 H Neut % (Auto) 88.8 H Lymph % (Auto) 6.8 L [place] % (Auto) 2.7 Eos % (Auto) 0.0 Baso % (Auto) 0.4 Lymph # (Auto) 0.6 L [place] # (Auto) 0.2 Eos # (Auto) 0.0 Baso # (Auto) 0.0 Abs Immat Gran (auto) 0.11 H Absolute Neuts (auto) 7.3 Absolute Nucleated RBC 0.000 Nucleated RBC % (auto) 0.0 VBG pH VBG pCO2 VBG pO2 VBG HCO3 VBG O2 Saturation VBG Base Excess Anion Gap 18 Estim Creat Clear Calc 81.2 Estimated GFR > 60 POC Glucose 347 H Random Glucose 397 H* Calcium 8.6 Magnesium Total Bilirubin Direct Bilirubin AST ALT Alkaline Phosphatase Total Protein Albumin Acetone, Qual COVID-19 ([facility]) COVID-19 Clin Com Imaging Radiologist's Impressions: Impressions Chest X-Ray 03/26/22 20:35 IMPRESSION: No acute pulmonary process. Assessment and Plan (1) COPD exacerbation: Status: Acute (2) Steroid-induced hyperglycemia: Status: Acute Plan 51-year-old female with past medical history of diabetes, COPD presents to the hospital with complaints of dyspnea, cough, sputum production, not improved on oral prednisone # acute COPD exacerbation - treated with p.o. prednisone outpatient but continues to be symptomatic - no evidence of pneumonia on chest x-ray - will treat with IV steroids, DuoNeb p.r.n. as well as scheduled - monitor respiratory status # hyperglycemia - likely steroid induced - will place her on low-dose sliding scale insulin, continue Lantus - may require higher doses of insulin as she will be on IV steroids - POC q.i.d. a.c. - diabetic diet DVT prophylaxis: Lovenox Given her COPD exacerbation and need for IV steroids patient will require minimal2 night hospital stay for further management and monitoring Quality Stroke Does the patient have a stroke diagnosis?: No VTE Prior VTE?: No VTE Risk Level:: Medical - moderate - high VTE Device Contraindication: Treatment Not Indicated VTE Drug Contraindication: N/A - Med Ordered
[2022-03-27 08:33] LABS: Estimated Average Glucose 249 mg/dL; Hemoglobin A1c % 10.3 %
--- NOTE | 2022-03-27 08:59 | PHA.MEDREC ---
Addendum entered by Kendrick Lutz 03/28/22 10:48: Visited patient in regards to whether they take blood pressure medication. Patient reports to taking brown pills for blood pressure. Matches olmesartan claim history. Amlodipine is off-white in appearance and hasn't been refilled recently per claim history. Original Note: Pharmacy Consult ? Medication Reconciliation Pharmacy has completed the medication reconciliation. Client Experience Consultant services utilized. Pt stated that she does not use he same dose of lantus daily but that her doctor told her a range based off of her blood sugars.
[2022-03-27 09:07] LABS: Glucose, Whole Blood 358 mg/dL (60-115)
[2022-03-27] MEDS: Insulin Lispro 100 UNIT/ML 3 ML VIAL SUBCUT ×5 (09:36→20:32)
--- NOTE | 2022-03-27 09:38 | MHC.CM.PN ---
Patient is [place] speaking. She lives with her daughter, is independent at home and community, denies and DME use or home services. She is Covid vateena'd x3 (MRNA), PCP: Marilu Reynoso at [facility]. She reports HCP on file, copy requested. She will need assistance securing transportation at discharge. D/C Plan: Home (self-care)
[2022-03-27] MEDS: predniSONE 20 MG TABLET 40 MG PO (09:51)
[2022-03-27] MEDS: Gabapentin 100 MG CAPSULE 200 MG PO ×3 (09:52→20:30)
[2022-03-27] MEDS: Albuterol/Iprat 2.5/0.5MG 3 ML AMPUL.NEB INHALE ×3 (10:13→20:39)
--- NOTE | 2022-03-27 13:01 | PC.NURSE ---
PT IN NAD THIS AM, RESP EVEN, NONLABOURED. SPO2 WNL. C/O BACK AND RIB PAIN R/T COUGHING. REPORT GIVEN TO OVERFLOW RN, PT TO BE TRANSPORTED.
[2022-03-27 13:07] LABS: Glucose, Whole Blood 300 mg/dL (60-115)
--- NOTE | 2022-03-27 14:56 | PM.EVENT ---
Event Note Date of Service: 03/27/22 Event Note: Patient already seen by hospitalist service this morning Seen examined again. She is still short of breath, has hyperglycemia. Physical exam: Unchanged from h&P. Assessment and plan coordinated in H&P note. copd excerebation -continue nebs ,steriods . dm with hyperglycemia hba1c around 10. will try to adjust steriods to help with hyperglycemia continue lantus, fs with sliding scale.
[2022-03-27] MEDS: 0.9 % Sodium Chloride Flush 3 ML SYRINGE IVFLUSH (16:01)
[2022-03-27 18:07] LABS: Glucose, Whole Blood 402 mg/dL (60-115)
[2022-03-27] MEDS: Montelukast Sodium 10 MG TABLET PO (20:30)
[2022-03-27] MEDS: QUEtiapine Fumarate 100 MG TABLET PO (20:30)
[2022-03-27] MEDS: Insulin Glargine,Hum.rec.anlog 100 UNIT/ML 10 ML VIAL 20 UNIT SUBCUT (20:31)
[2022-03-27 21:39] LABS: Glucose, Whole Blood 334 mg/dL (60-115)
[2022-03-28] MEDS: Enoxaparin Sodium 40 MG/0.4 ML SYRINGE SUBCUT (00:48)
[2022-03-28] MEDS: Omeprazole 20 MG CAPSULE.DR PO (05:50)
[2022-03-28] MEDS: Levothyroxine Sodium 75 MCG TABLET PO (05:50)
[2022-03-28] MEDS: Acetaminophen 325 MG TABLET 650 MG PO (05:52)
[2022-03-28 06:00] VITALS: BP 164/72; PULSE 84; RESP 16; TEMP 36.7; O2SAT 95
[2022-03-28 07:27] LABS: Glucose, Whole Blood 148 mg/dL (60-115)
[2022-03-28 08:12] VITALS: PULSE 75; RESP 16; O2SAT 93
[2022-03-28] MEDS: Albuterol/Iprat 2.5/0.5MG 3 ML AMPUL.NEB INHALE (08:12)
[2022-03-28] MEDS: Gabapentin 100 MG CAPSULE 200 MG PO (08:19)
[2022-03-28] MEDS: Sertraline HCL 50 MG TABLET PO (08:19)
[2022-03-28] MEDS: QUEtiapine Fumarate 100 MG TABLET PO (08:19)
[2022-03-28] MEDS: predniSONE 20 MG TABLET 40 MG PO (08:19)
[2022-03-28] MEDS: Atorvastatin Calcium 80 MG TABLET PO (08:19)
[2022-03-28 08:25] VITALS: BP 178/79; PULSE 77; RESP 16; O2SAT 94
--- NOTE | 2022-03-28 11:10 | PM.DS ---
DS: Providers Provider Date of Service: 03/28/22 Date of admission: 03/27/22 00:24 Primary care physician: Unknown Physician DS: Diagnosis Discharge Diagnosis (1) COPD exacerbation: Status: Acute (2) Steroid-induced hyperglycemia: Status: Acute DS: Summary Hospital Course Hospital Course: 51-year-old female with past medical history of COPD presents to the hospital with persistent cough, dyspnea, sputum production.? Patient reports that her symptoms are about 4-5 days ago, accompanied by cough and sputum production..? She was started on prednisone by her primary care physician and took 2 days of prednisone with no relief of her symptoms.? She denies any fever or chills, no chest pain, no palpitations, no abdominal pain nausea or vomiting, no diarrhea constipation, no urinary symptoms and no lower extremity edema.? On arrival to the ED patient hemodynamically stable with no abnormal vitals Labs are significant for WBC count of 11.1, hemoglobin 11.7, hematocrit 33.9, glucose of 594 labs otherwise unremarkable Chest x-ray negative for acute infection, COVID-19 negative. Hospital course: Patient came to the hospital because of COPD exacerbation and bronchitis-started on nebs, steroids, cough syrup, antibiotics and seems improving-going home with steroids and antibiotic. Steroids taper due to hyperglycemia. continue omlesartan for htn. Further management out patiently with PCP. Plan: Please complete the course of steroid and antibiotic. If any new symptoms including shortness of breath or fever -please call to the nearest emergency room for evaluation. Above management discussed with the patient in detail length she understand and in agreement with the above plan, time spent 50 minutes and 50% time spent on counseling. Significant findings: As above. Procedures performed: None. Treatment and response: As above. Complications: None. Time Spent with Patient Time attestation: Total time spent providing and/or coordinating discharge services: Discharge coordination time: Greater than 30 minutes Quality: Safe Use of Opioids Does Pt have an Active Cancer Diagnosis on the Problem List?: No Quality: Stroke Does the patient have a stroke diagnosis?: No Physical Exam Vital Signs: Vital Signs: Last Vital Signs Temp 98.0 F 03/28/22 06:00 Pulse 77 03/28/22 08:25 Resp 16 03/28/22 08:25 BP 178/79 H 03/28/22 08:25 Pulse Ox 94 03/28/22 08:25 O2 Del Method 08/12/22 08:25 BMI result Body Mass Index 27.4 Appearance: Alert.? Oriented X3.? not in distress.? Eyes: Pupils equal, round and reactive to light.? Sclera nonicteric.? ENT: Pharynx normal.? Moist mucous membranes. cvs: rrr, [id number] , no murmur res: clear to auscultation ,no rhonchii or wheezing abd: no rebound or guarding ,nt, bs present. ext pulses present , no cyanosis . neuro: axo3 , nonfocal. DS: Data Data Completed and Pending Labs on day of discharge: Laboratory Results - last 24 hr 03/27/22 03/27/22 03/27/22 13:02 18:03 21:33 POC Glucose 300 H 402 H* 334 H 03/28/22 07:20 POC Glucose 148 H Additional Comments Additional comments: XR/XR chest 1V IMPRESSION: No acute pulmonary process. Discharge Plan Discharge Patient Disposition: Home, Self-Care Discharge Diagnosis: COPD exacerbation, bronchitis, hyperglycemia. Referrals: Physician,Unknown J [Primary Care Provider] - 1 Week Discharge Medications: New prednisone 20 mg tablet 20 mg PO DAILY Qty: 4 0RF azithromycin [Zithromax] 250 mg tablet 250 mg PO DAILY 4 Days Qty: 4 0RF Continued insulin glargine [Lantus U-100 Insulin] 100 unit/mL solution 8 - 10 unit subcut BEDTIME gabapentin 100 mg capsule 2 cap PO BID albuterol sulfate [ProAir HFA] 90 mcg/actuation HFA aerosol inhaler 4 puff PO Q4-6H PRN (Reason: Wheezing) Trulicity 1.5 mg/0.5 mL pen injector 1.5 mg subcut FR quetiapine 100 mg tablet 1 tab PO BID levothyroxine 75 mcg tablet 1 tab PO DAILY@0600 omeprazole 20 mg capsule,delayed release(DR/EC) 1 cap PO DAILY@0630 montelukast 10 mg tablet 1 tab PO BEDTIME sertraline 50 mg tablet 1 tab PO DAILY rosuvastatin 40 mg tablet 1 tab PO DAILY guaifenesin 100 mg/5 mL Liquid 200 mg PO Q4H PRN (Reason: Cough) olmesartan 20 mg Tablet 20 mg PO DAILY (DME) lancets [FreeStyle Lancets] 28 gauge misc See Rx Instructions .ROUTE .MEDSUPPLY Qty: 100 Rx Instructions: As directed (DME) blood-glucose meter [FreeStyle Lite Meter] Kit See Rx Instructions .ROUTE .MEDSUPPLY Qty: 1 Rx Instructions: As directed (DME) FreeStyle Lite Strips Strip See Rx Instructions .ROUTE .MEDSUPPLY Qty: 10 Rx Instructions: As directed Discharge Orders: Discharge Order (Routine); Ordered 03/28/22 Ordered By: Shirley Alvarado Diet: Advance to usual diet Activity on Discharge: As tolerated Stand Alone Forms: Patient Portal Discharge page Care Plan Goals: Patient came to the hospital because of COPD exacerbation and bronchitis-started on nebs, steroids, cough syrup, antibiotics and seems improving-going home with steroids and antibiotic. Steroids taper due to hyperglycemia. continue omlesartan for htn. Further management out patiently with PCP. Health Concerns: Complete the course of steroids and antibiotic. Is shortness of breath or fever or any new symptoms please come to the nearest emergency room and get evaluated. Plan of Treatment: As above. Assessment: As above.
[2022-03-28] MEDS: Azithromycin 250 MG TABLET PO (11:13)
--- NOTE | 2022-03-28 11:13 | MHC.CM.PN ---
PT WILL DC HOME TODAY WITH NO SERVICES
== END 2022-03-28 11:17 | disposition home or self-care (01) | DRG 140 ==
LOC: HO.ED 03-27 00:04 → HO.EDOVER 03-27 00:44
PROVIDERS: Physician Assistant; Admitting Provider Internal Medicine; Emergency Provider Emergency Medicine; Visit Provider Internal Medicine
DX: J44.1 Chronic obstructive pulmonary disease with (acute) exacerbation (principal); E03.9 Hypothyroidism, unspecified; E11.65 Type 2 diabetes mellitus with hyperglycemia; F41.9 Anxiety disorder, unspecified; F32.A Depression, unspecified; T38.0X5A Adverse effect of glucocorticoids and synthetic analogues, initial encounter; F17.200 Nicotine dependence, unspecified, uncomplicated; Z71.6 Tobacco abuse counseling; Z20.822 Contact with and (suspected) exposure to COVID-19; Z88.0 Allergy status to penicillin; Z88.2 Allergy status to sulfonamides; Z79.4 Long term (current) use of insulin; Z79.52 Long term (current) use of systemic steroids; Z79.890 Hormone replacement therapy; Z79.899 Other long term (current) drug therapy
CPT/HCPCS: 36415; 71045; 80048; 80076; 82009; 82803; 82947; 83036; 83735; 84484; 85025; 87635; 93005; 94640; 96361; 96374; 96375; 99218; 99285; J1650; J1956; J2920; J3475

== ENCOUNTER 2022-05-27 13:17 | Outpatient (REF) | payer MEDICAID, SELFPAY ==
--- NOTE | ~2022-05-27 | XR_ITS ---
EXAMINATION: BILATERAL SHOULDER. CLINICAL INFORMATION: Disorders of synovial and tendon. COMPARISON: None TECHNIQUE: 4 views each shoulder. FINDINGS: RIGHT SHOULDER: There is no visible fracture, dislocation or subluxation. The joint space is maintained normal. There is soft tissue calcification lateral to greater tuberosity likely calcific bursitis. LEFT SHOULDER: The glenohumeral and AC joint space is maintained normal. No visible acute fracture, dislocation or subluxation seen. XR/XR shoulder LT min 2V IMPRESSION: Calcific bursitis right shoulder. Unremarkable left shoulder.
--- NOTE | ~2022-05-27 | XR_ITS ---
EXAMINATION: BILATERAL SHOULDER. CLINICAL INFORMATION: Disorders of synovial and tendon. COMPARISON: None TECHNIQUE: 4 views each shoulder. FINDINGS: RIGHT SHOULDER: There is no visible fracture, dislocation or subluxation. The joint space is maintained normal. There is soft tissue calcification lateral to greater tuberosity likely calcific bursitis. LEFT SHOULDER: The glenohumeral and AC joint space is maintained normal. No visible acute fracture, dislocation or subluxation seen. XR/XR shoulder RT min 2V IMPRESSION: Calcific bursitis right shoulder. Unremarkable left shoulder.
== END 2022-05-27 13:18 | disposition home or self-care (01) ==
LOC: HO.XRAY 13:17
PROVIDERS: PCP Registered Nurse; Visit Provider Registered Nurse
DX: M67.912 Unspecified disorder of synovium and tendon, left shoulder (principal); M75.51 Bursitis of right shoulder
CPT/HCPCS: 73030

== ENCOUNTER 2022-07-20 20:57 | Emergency (ER) | payer MEDICAID, SELFPAY ==
--- NOTE | 2022-07-20 | ECG_ITS ---
Test Reason : ALTERED MENTAL Blood Pressure : / mmHG Vent. Rate : 071 BPM Atrial Rate : 071 BPM P-R Int : 154 ms QRS Dur : 094 ms QT Int : 390 ms P-R-T Axes : 042 -42 038 degrees QTc Int : 423 ms Normal sinus rhythm Left axis deviation Moderate voltage criteria for LVH, may be normal variant ( R in aVL , Mohit product ) Abnormal ECG When compared with ECG of 26-MAR-2022 22:40, No significant change was found Referred By: Frederick Arriaza Electronically Signed By:OLIVIA MADERA MD
[2022-07-20 21:06] VITALS: BP 122/66; PULSE 71; PULSE 77; RESP 14; TEMP 36.7; O2SAT 96; BMI 37.5
[2022-07-20 21:09] LABS: Glucose, Whole Blood 345 mg/dL (60-115)
--- NOTE | 2022-07-20 21:12 | ED.AMS ---
HPI - Altered Mental Status General Chief Complaint: Altered Mental Status Stated Complaint: AMS Time Seen by Provider: 07/20/22 21:05 Source: patient and family Mode of arrival: ambulatory Limitations: no limitations History of Present Illness HPI narrative: Patient 52 years old with history of diabetes COPD did not have electricity at home so unable to use her insulin few days for for last 2 days patient has been using her insulin comes here for generalized weakness blurred vision and feeling dizzy no abdominal pain or nausea no vomiting on arrival patient's blood sugar was 345 no urinary complaint no fever or chills no upper respiratory symptoms patient was slightly delusional earlier today Related Data Home Medications Medication Instructions Recorded Confirmed blood sugar diagnostic (FreeStyle #10 ea 07/24/20 03/27/22 Lite Strips) blood-glucose meter (FreeStyle #1 ea 07/24/20 03/27/22 Lite Meter kit) lancets 28 gauge (FreeStyle #100 ea 07/24/20 03/27/22 Lancets) albuterol sulfate 90 mcg/actuation 4 puff PO Q4-6H PRN Wheezing 01/13/22 03/27/22 aerosol inhaler (ProAir HFA) dulaglutide 1.5 mg/0.5 mL 1.5 mg subcut FR 01/13/22 03/27/22 subcutaneous pen injector (Trulicity) gabapentin 100 mg capsule 2 cap PO BID 01/13/22 03/27/22 insulin glargine 100 unit/mL 8 - 10 unit subcut BEDTIME 01/13/22 03/27/22 subcutaneous solution (Lantus U-100 Insulin) guaifenesin 100 mg/5 mL oral liquid 200 mg PO Q4H PRN Cough 03/27/22 03/27/22 levothyroxine 75 mcg tablet 1 tab PO DAILY@0600 03/27/22 03/27/22 montelukast 10 mg tablet 1 tab PO BEDTIME 03/27/22 03/27/22 omeprazole 20 mg capsule,delayed 1 cap PO DAILY@0630 03/27/22 03/27/22 release quetiapine 100 mg tablet 1 tab PO BID 03/27/22 03/27/22 rosuvastatin 40 mg tablet 1 tab PO DAILY 03/27/22 03/27/22 sertraline 50 mg tablet 1 tab PO DAILY 03/27/22 03/27/22 olmesartan 20 mg tablet 20 mg PO DAILY 03/28/22 03/28/22 Previous Rx's Medication Instructions Recorded azithromycin 250 mg tablet 250 mg PO DAILY 4 days #4 tabs 03/28/22 (Zithromax) prednisone 20 mg tablet 20 mg PO DAILY #4 tabs 03/28/22 Allergies Allergy/AdvReac Type Severity Reaction Status Date / Time lisinopril [LISINOPRIL] Allergy Unknown UNKNOWN Verified 09/27/20 09:36 Penicillins Allergy Unknown RASH Verified 09/27/20 09:36 sulfamethoxazole Allergy Unknown RASH Verified 09/27/20 09:36 trimethoprim Allergy Unknown RASH Verified 09/27/20 09:36 Review of Systems Review of Systems: Yes all other systems are reviewed and are negative [facility] Past Medical History Medical History Anemia Anxiety Asthma Depression Essential hypertension Hyperlipidemia LDL goal <100 Hypotension Migraine aura without headache Other and unspecified hyperlipidemia Palpitations Smoking Type 2 diabetes mellitus with hyperglycemia, with long-term current use of insulin Type 2 diabetes mellitus with unspecified complications Vitamin D insufficiency Surgical History History of cholecystectomy Family History Family History Mother Diabetes Brother Diabetes Social History Social History Alcohol intake: current Alcohol intake frequency: holidays/special occasions only Smoked in Last 30 Days: Yes Use of substances other than those prescribed or required for medical reasons: No Advance Directives: No Advance Directives Information Provided: Yes Patient : No service: No Current occupational status: unemployed Physical Exam ED Vital Signs: Vital Signs - 24 hr 07/20/22 21:06 07/20/22 21:13 07/21/22 01:31 Temperature 98.1 F 98.0 F 998.2 F H Pulse Rate 71 70 73 Respiratory Rate 14 14 18 Blood Pressure 122/66 122/66 121/62 Pulse Oximetry 96 100 94 Oxygen Delivery Method Room Air Room Air Room Air BMI result Body Mass Index 37.5 Appearance: Alert. Oriented X3. No acute distress. Eyes: PERRLA, No Nystagmus ENT: Pharynx normal. Oral Mucosa moist Neck: Normal inspection. Neck supple. CVS: Normal heart rate and rhythm. Pulses normal. Respiratory: No respiratory distress. Equal air entry bilateral, no wheezing/rales/rhonchi Abdomen: Soft and nontender. Bowel sounds are present, no mass palpable, no CVA tenderness Skin: Skin warm and dry. Normal skin color. Normal skin turgor. Extremities: No lower extremity edema. No calf tenderness Neuro: Oriented X 3. No motor deficit. No sensory deficit.No cerebellar signs , cranial nerves II-XII intact Medications Administered Generic Name Dose Route Start Last Admin Trade Name Freq PRN Reason Stop Dose Admin Sodium Chloride 1,000 mls @ 999 mls/hr 07/21/22 00:59 07/21/22 01:01 Ns IV 07/21/22 01:59 999 mls/hr .Q1H1M ONE Administration Discontinued Medications Generic Name Dose Route Start Last Admin Trade Name Freq PRN Reason Stop Dose Admin Magnesium Sulfate 2 gm in 50 mls @ 100 mls/hr 07/21/22 00:55 07/21/22 01:01 Magnesium Sulfate/H2o IV 07/21/22 01:24 100 mls/hr ONCE ONE Administration MDM - Altered Mental Status MDM Narrative Medical decision making narrative: Patient has hypomagnesemia with hyperglycemia improved after IV magnesium and IV hydration feeling much better will discharge patient home patient has [place] at home and will be taking insulin and taking care of her diet now Differential Diagnosis Differential diagnosis: Likely altered mental status, dementia, encephalopathy, hypoglycemia and hyponatremia Medical Records Attestation: I reviewed the patient's medical records. Lab Data Attestation: I reviewed the patient's lab results. Result diagrams: 07/20/22 21:30 07/20/22 21:30 Labs: Lab Results 07/20/22 07/20/22 07/20/22 Range/Units 21:06 21:30 21:30 WBC 9.7 (4.8-10.8) X10*3/uL RBC 4.26 (4.20-5.50) X10*6/uL Hgb 12.0 (12.0-16.0) g/dl Hct 35.1 L (37.0-47.0) % MCV 82.4 (80.0-98.0) fL MCH 28.2 (27.0-33.0) pg MCHC 34.2 (31.0-35.0) g/dl RDW 12.8 (11.0-16.0) % Plt Count 265 D (160-400) X10*3/uL MPV 11.4 (9.4-12.3) fL Immature Gran % (Auto) 0.4 (0.0-0.4) % Neut % (Auto) 67.1 (45-73) % Lymph % (Auto) 25.1 (20-40) % [place] % (Auto) 6.1 (2-11) % Eos % (Auto) 0.9 (0-4) % Baso % (Auto) 0.4 (0-2) % Lymph # (Auto) 2.4 (1.2-4.9) X10*3/uL [place] # (Auto) 0.6 (0.1-1.2) X10*3/uL Eos # (Auto) 0.1 (0.0-0.4) X10*3/uL Baso # (Auto) 0.0 (0.0-0.2) X10*3/uL Abs Immat Gran (auto) 0.04 H (0.00-0.03) X10*3/uL Absolute Neuts (auto) 6.5 (2.0-8.3) x10*3/uL Absolute Nucleated RBC 0.000 (0.0-0.012) X10*3/uL Nucleated RBC % (auto) 0.0 (0.0-0.2) /100WBC Sodium 139 (135-145) mmol/L Potassium 4.0 (3.3-5.1) mmol/L Chloride 94 L (96-108) mmol/L Carbon Dioxide 31 H (22-29) mmol/L Anion Gap 18 (12-20) BUN 15 (9-16) mg/dL Creatinine 1.22 (0.5-1.4) mg/dL Estim Creat Clear Calc 52.9 Estimated GFR 46 POC Glucose 345 H (60-115) mg/dL Random Glucose 254 H (60-115) mg/dL Calcium 8.7 (8.4-10.2) mg/dL Magnesium 1.1 L* (1.6-2.6) mg/dL Total Bilirubin 0.3 (0.0-1.0) mg/dL AST 15 D (5-31) U/L ALT 11 (0-31) U/L Alkaline Phosphatase 136 H D (39-117) U/L Total Protein 7.7 (6.5-8.0) g/dL Albumin 4.5 (3.5-5.0) g/dL Ethyl Alcohol < 10 mg/dL ECG Data ECG #1: Attestation: I personally reviewed and interpreted this ECG as follows: Interpretation: Normal sinus rhythm heart rate 71 beats per minute left axis deviation LVH no acute Street changes no acute ischemia Discharge Plan Discharge Clinical Impression: Type 2 diabetes mellitus with hyperglycemia, with long-term current use of insulin, Hypomagnesemia Patient Disposition: Home, Self-Care Instructions: Hypomagnesemia (ED), Diabetic Hyperglycemia (ED) Additional Instructions: Drink plenty of fluids Take insulin on time Have food containing high magnesium as advised Follow with PCP Prescriptions: No Action insulin glargine [Lantus U-100 Insulin] 100 unit/mL solution 8 - 10 unit subcut BEDTIME gabapentin 100 mg capsule 2 cap PO BID albuterol sulfate [ProAir HFA] 90 mcg/actuation HFA aerosol inhaler 4 puff PO Q4-6H PRN (Reason: Wheezing) Trulicity 1.5 mg/0.5 mL pen injector 1.5 mg subcut FR quetiapine 100 mg tablet 1 tab PO BID levothyroxine 75 mcg tablet 1 tab PO DAILY@0600 omeprazole 20 mg capsule,delayed release(DR/EC) 1 cap PO DAILY@0630 montelukast 10 mg tablet 1 tab PO BEDTIME sertraline 50 mg tablet 1 tab PO DAILY rosuvastatin 40 mg tablet 1 tab PO DAILY guaifenesin 100 mg/5 mL Liquid 200 mg PO Q4H PRN (Reason: Cough) prednisone 20 mg tablet 20 mg PO DAILY Qty: 4 0RF azithromycin [Zithromax] 250 mg tablet 250 mg PO DAILY 4 Days Qty: 4 0RF olmesartan 20 mg Tablet 20 mg PO DAILY (DME) lancets [FreeStyle Lancets] 28 gauge misc See Rx Instructions .ROUTE .MEDSUPPLY Qty: 100 Rx Instructions: As directed (DME) blood-glucose meter [FreeStyle Lite Meter] Kit See Rx Instructions .ROUTE .MEDSUPPLY Qty: 1 Rx Instructions: As directed (DME) FreeStyle Lite Strips Strip See Rx Instructions .ROUTE .MEDSUPPLY Qty: 10 Rx Instructions: As directed Print Language: Gabonese
[2022-07-20 21:13] VITALS: BP 122/66; PULSE 70; RESP 14; TEMP 36.7; O2SAT 100
[2022-07-20 21:34] LABS: MANUAL DIFF FLAG NO
[2022-07-20 21:42] LABS: Basophils Percent Auto 0.4 % (0-2); Eosinophils Absolute Auto 0.1 X10*3/uL (0.0-0.4); Eosinophils Percent Auto 0.9 % (0-4); Hematocrit 35.1 % (37.0-47.0); Imm Gran Abs Auto 0.04 X10*3/uL (0.00-0.03); Imm Gran Pct Auto 0.4 % (0.0-0.4); Lymphocytes Absolute Auto 2.4 X10*3/uL (1.2-4.9); Lymphocytes Percent Auto 25.1 % (20-40); Mean Corpuscular HGB Conc 34.2 g/dl (31.0-35.0); Mean Corpuscular Hemoglobin 28.2 pg (27.0-33.0); Mean Corpuscular Volume 82.4 fL (80.0-98.0); Mean Platelet Volume 11.4 fL (9.4-12.3); Monocytes Absolute Auto 0.6 X10*3/uL (0.1-1.2); Monocytes Percent Auto 6.1 % (2-11); Neutrophils Absolute Auto 6.5 x10*3/uL (2.0-8.3); Neutrophils Percent Auto 67.1 % (45-73); Platelet Count 265 X10*3/uL (160-400); Red Blood Count 4.26 X10*6/uL (4.20-5.50); Red Cell Distribution Width 12.8 % (11.0-16.0); White Blood Count 9.7 X10*3/uL (4.8-10.8)
[2022-07-20 22:00] LABS: Alanine Aminotransferase 11 U/L (0-31); Albumin Level 4.5 g/dL (3.5-5.0); Alkaline Phosphatase 136 U/L (39-117); Anion Gap 18 (12-20); Aspartate Amino Transferase 15 U/L (5-31); Blood Urea Nitrogen 15 mg/dL (9-16); Calcium 8.7 mg/dL (8.4-10.2); Carbon Dioxide 31 mmol/L (22-29); Chloride 94 mmol/L (96-108); Creatinine Clr Calc Pharmacy 52.9; Estimated Glomerular Filt Rate 46; Ethanol < 10 mg/dL; Glucose Random 254 mg/dL (60-115); Magnesium 1.1 mg/dL (1.6-2.6); Sodium 139 mmol/L (135-145); Total Protein 7.7 g/dL (6.5-8.0)
[2022-07-21] MEDS: Magnesium Sulfate/H2O 2 GM/50 ML PIGGYBACK IV (01:01)
[2022-07-21] MEDS: 0.9 % Sodium Chloride 1,000 ML 999 ML IV (01:01)
[2022-07-21 01:14] LABS: Bilirubin Total 0.3 mg/dL (0.0-1.0)
[2022-07-21 01:31] VITALS: BP 121/62; PULSE 73; RESP 18; TEMP 536.8; TEMP 998.2; O2SAT 94
[2022-07-21 01:48] LABS: Influenza A PCR NEGATIVE (Negative); Influenza B PCR NEGATIVE (Negative); Resp Syncy Virus RNA Qual PCR NEGATIVE (Negative); SARS COV2 PCR INHOUSE NEGATIVE (Negative)
== END 2022-07-21 02:09 | disposition home or self-care (01) ==
PROVIDERS: Emergency Provider Internal Medicine; PCP Registered Nurse
DX: E11.65 Type 2 diabetes mellitus with hyperglycemia (principal); E83.42 Hypomagnesemia; R07.89 Other chest pain; Z20.822 Contact with and (suspected) exposure to COVID-19; Z79.4 Long term (current) use of insulin; Z79.899 Other long term (current) drug therapy
CPT/HCPCS: 0241U; 36415; 80053; 82077; 82947; 83735; 85025; 93005; 96361; 96374; 99284; 99285; J3475

== ENCOUNTER 2023-03-03 15:14 | Outpatient (REF) | payer MEDICAID, SELFPAY ==
[2023-03-03 17:10] LABS: Alanine Aminotransferase 9 U/L (0-31); Alkaline Phosphatase 123 U/L (39-117); Anion Gap 16 (12-20); Aspartate Amino Transferase 14 U/L (5-31); Bilirubin Total 0.8 mg/dL (0.0-1.0); Blood Urea Nitrogen 14 mg/dL (9-16); Calcium 8.9 mg/dL (8.4-10.2); Carbon Dioxide 28 mmol/L (22-29); Chloride 99 mmol/L (96-108); Cholesterol 133 mg/dL; Estimated Glomerular Filt Rate > 60; Glucose Random 177 mg/dL (60-115); HDL Cholesterol 43 mg/dL; LDL Cholesterol Calculated 41 mg/dl; Potassium 4.4 mmol/L (3.3-5.1); Sodium 139 mmol/L (135-145); Total Protein 7.3 g/dL (6.5-8.0); Triglycerides 246 mg/dL
== END 2023-03-03 15:15 | disposition home or self-care (01) ==
LOC: HO.HHCL 15:14
PROVIDERS: Visit Provider Registered Nurse
DX: E11.65 Type 2 diabetes mellitus with hyperglycemia (principal); Z79.4 Long term (current) use of insulin
CPT/HCPCS: 36415; 80053; 80061

== ENCOUNTER 2023-03-05 16:19 | Outpatient (REF) | payer MEDICAID, SELFPAY ==
[2023-03-05 18:38] LABS: Creatinine Urine 23.48 mg/dL; Microalbum/Creatinine Ratio Ur 42.5 ug/mg cr
== END 2023-03-05 16:20 | disposition home or self-care (01) ==
LOC: HO.HHCLNP 16:19
PROVIDERS: Visit Provider Registered Nurse
DX: E11.65 Type 2 diabetes mellitus with hyperglycemia (principal); Z79.4 Long term (current) use of insulin
CPT/HCPCS: 82043

== ENCOUNTER 2023-06-19 17:36 | Outpatient (REF) | payer MEDICAID, SELFPAY ==
[2023-06-19 18:01] LABS: Appearance Urine Clear; Color Urine Yellow; Glucose Urine UA >=1000 mg/dL (Negative); Leukocyte Esterase Urine Negative (Negative); Nitrite Urine Negative (Negative); PH 5.5 (5.0-9.0); Specific Gravity - Urine >= 1.030 (1.005-1.025); UMIC TRIGGER UACC YES; Urine Blood Negative (Negative); Urine Ketones Negative (Negative); Urine Protein Negative (Neg-Trace)
[2023-06-19 18:22] LABS: Bacteria Urine 1+ (None Seen); Hyaline Casts Urine 0-2 /LPF (0-2); Squamous Epithelial Cell Urine 0-2 /HPF (0-2); WBC Urine 0-5 /HPF (0-5)
== END 2023-06-19 17:37 | disposition home or self-care (01) ==
LOC: HO.LNP 17:36
PROVIDERS: Visit Provider Registered Nurse
DX: R30.0 Dysuria (principal); N76.0 Acute vaginitis
CPT/HCPCS: 81001; 81513

== ENCOUNTER 2023-08-18 15:31 | Outpatient (REF) | payer MEDICAID, SELFPAY | END 2023-08-18 15:32 | disposition home or self-care (01) | LOC: HO.HHCX 15:31 | PROVIDERS: Visit Provider Registered Nurse | DX: M25.511 Pain in right shoulder (principal) | CPT/HCPCS: 73030 ==

== ENCOUNTER 2024-02-17 13:13 | Outpatient (REF) | payer MEDICAID, SELFPAY ==
--- NOTE | ~2024-02-17 | XR_ITS ---
EXAMINATION: XR KNEE, RIGHT CLINICAL INFORMATION: Right knee pain status post fall. COMPARISON: None available. TECHNIQUE: AP, lateral, and both oblique views of the right knee. FINDINGS: No fracture or joint effusion. Alignment is anatomic. Joint spaces are maintained. No abnormal soft tissue calcification. XR/XR knee RT 4V IMPRESSION: Normal right knee radiographs.
== END 2024-02-17 13:14 | disposition home or self-care (01) ==
LOC: HO.HHCX 13:13
PROVIDERS: Visit Provider Registered Nurse
DX: M25.561 Pain in right knee (principal)
CPT/HCPCS: 73564

== ENCOUNTER 2024-07-02 01:47 | Inpatient (IN) | payer MEDICAID, SELFPAY ==
[2024-07-02] VITALS (9 sets, daily range): BP systolic 117–157; BP diastolic 44–79; PULSE 70–89; RESP 16–20; TEMP 36.3–37.3; O2SAT 95–100; BMI 36.1; BMI 40.0
--- NOTE | ~2024-07-02 | CT_ITS ---
EXAMINATION: CT ABDOMEN AND PELVIS WITH CONTRAST CLINICAL INFORMATION: Diarrhea COMPARISON: None TECHNIQUE: Multiple axial images were obtained from the superior aspect of the liver through the pubic symphysis after the administration of 85 mL of intravenous Omnipaque. Images were evaluated on independent dedicated 3-D workstation and 3-D images were reconstructed with concurrent radiologist supervision and subsequently interpreted. Oral contrast was not administered. This CT examination was performed using dose optimization techniques as appropriate, variously including the following: *Automated exposure control *Adjustment of mA and/or kV according to patient size (this includes techniques or standardized protocols for targeted exams where dose is matched to indication/reason for exam; i.e. extremities or head) *Use of iterative reconstruction technique DLP: 589 mGy-cm FINDINGS: LUNG BASES: The visualized lung bases are clear. CARDIOMEDIASTINUM: The visualized heart is normal in size without pericardial effusion. No coronary artery calcification. LIVER: Homogeneous in attenuation. Normal in size. GALLBLADDER: Absent BILIARY SYSTEM: No intrahepatic or extrahepatic biliary dilation. PANCREAS: Homogeneous in attenuation. SPLEEN: Normal in size. GENITOURINARY: Bilateral kidneys demonstrate symmetric enhancement. No perinephric fluid collection. No renal calculi. No hydroureteronephrosis. ADRENAL GLANDS: Unremarkable. REPRODUCTIVE: Prostate present. GASTROINTESTINAL: The visualized alimentary tract is normal in course. No evidence of obstruction. APPENDIX: The appendix is seen in its entirety and is unremarkable. PERITONEUM: No pneumoperitoneum. No intra-abdominal fluid collection. VASCULATURE: The abdominal aorta is normal in course and caliber. LYMPH NODES: No pathologically enlarged abdominal or pelvic lymph nodes. SOFT TISSUES/MUSCULOSKELETAL: There is no acute fracture or significant focal osseous lesion. CT/CT abdomen pelvis w IV con IMPRESSION: No acute abdominal or pelvic pathology. Fleischner guidelines were followed. Electronically signed by: Edu Arvizu DO 07/04/2024 09:51 PM EST
--- NOTE | ~2024-07-02 | XR_ITS ---
EXAMINATION: XR CHEST CLINICAL INFORMATION: Chest pain COMPARISON: Chest radiograph 05/21/2022 TECHNIQUE: Frontal view of the chest was obtained. FINDINGS: Normal appearance of the cardiomediastinal structures. No effusions or pneumothoraces. Normal pattern of pulmonary vasculature. No focal pulmonary consolidation. No skeletal abnormalities identified. XR/XR chest 1V IMPRESSION: Normal chest radiograph. No cardiopulmonary abnormalities identified. Electronically signed by: Peter Loyd MD 07/02/2024 04:38 AM [facility]
--- NOTE | 2024-07-02 02:03 | ECG_ITS ---
Test Reason : CHEST PAIN Blood Pressure : / mmHG Vent. Rate : 070 BPM Atrial Rate : 070 BPM P-R Int : 144 ms QRS Dur : 124 ms QT Int : 496 ms P-R-T Axes : 018 -54 054 degrees QTc Int : 535 ms Normal sinus rhythm Left anterior fascicular block Left ventricular hypertrophy with QRS widening ( R in aVL , [place] product ) Nonspecific ST abnormality Abnormal ECG When compared with ECG of 20-JUL-2022 21:14, QT has lengthened Referred By: Generic ED Physician Electronically Signed By:Chadd Abad
[2024-07-02 02:39] LABS: MANUAL DIFF FLAG NO
[2024-07-02 02:41] LABS: Basophils Percent Auto 0.4 % (0-2); Eosinophils Absolute Auto 0.3 X10*3/uL (0.0-0.4); Eosinophils Percent Auto 3.5 % (0-4); Hematocrit 33.2 % (37.0-47.0); Hemoglobin 11.3 g/dl (12.0-16.0); Imm Gran Abs Auto 0.02 X10*3/uL (0.00-0.03); Imm Gran Pct Auto 0.2 % (0.0-0.4); Lymphocytes Absolute Auto 2.5 X10*3/uL (1.2-4.9); Lymphocytes Percent Auto 25.9 % (20-40); Mean Corpuscular Hemoglobin 27.4 pg (27.0-33.0); Mean Corpuscular Volume 80.6 fL (80.0-98.0); Mean Platelet Volume 11.1 fL (9.4-12.3); Monocytes Absolute Auto 0.5 X10*3/uL (0.1-1.2); Monocytes Percent Auto 5.4 % (2-11); Neutrophils Absolute Auto 6.2 x10*3/uL (2.0-8.3); Neutrophils Percent Auto 64.6 % (45-73); Platelet Count 241 X10*3/uL (160-400); Red Blood Count 4.12 X10*6/uL (4.20-5.50); Red Cell Distribution Width 13.6 % (11.0-16.0); White Blood Count 9.6 X10*3/uL (4.8-10.8)
[2024-07-02 03:00] LABS: Alanine Aminotransferase 9 U/L (0-31); Albumin Level 3.8 g/dL (3.5-5.0); Alkaline Phosphatase 88 U/L (39-117); Anion Gap 19 (12-20); Aspartate Amino Transferase 21 U/L (5-31); Bilirubin Total 0.4 mg/dL (0.0-1.0); Blood Urea Nitrogen 7 mg/dL (9-16); Calcium 8.1 mg/dL (8.4-10.2); Carbon Dioxide 32 mmol/L (22-29); Chloride 98 mmol/L (96-108); Creatinine Clr Calc Pharmacy 55.2; Estimated Glomerular Filt Rate 51; Glucose Random 165 mg/dL (60-115); Potassium 2.7 mmol/L (3.3-5.1); Sodium 146 mmol/L (135-145); Total Protein 6.9 g/dL (6.5-8.0)
[2024-07-02 03:01] LABS: Troponin-I High Sensitivity 4.5 ng/L (<3.5-17.0)
[2024-07-02 03:19] LABS: Influenza A PCR NEGATIVE (Negative); Influenza B PCR NEGATIVE (Negative); Resp Syncy Virus RNA Qual PCR NEGATIVE (Negative); SARS COV2 PCR INHOUSE NEGATIVE (Negative)
--- NOTE | 2024-07-02 03:44 | PC.NURSE ---
Verbal order received from Dr. Charles for Potassium Chloride packet 60 mEq PO.
[2024-07-02] MEDS: Potassium Chloride Packet 20 MEQ PACKET 60 MEQ PO ×2 (04:03→06:19)
--- NOTE | 2024-07-02 05:07 | ED_ITS ---
HPI - Chest Pain General Chief Complaint: Chest Pain Stated Complaint: CP x couple days, Hx Anxiety A&Ox4 Time Seen by Provider: 07/02/24 04:52 Source: patient Mode of arrival: ambulatory Limitations: no limitations History of Present Illness ED Provider: Dr. Ivy Charles HPI narrative: Patient comes to the emergency room complaining of anxiety, abdominal burning sensation epigastric area, anxiety. Patient states that she has been significantly anxious duty abdominal pain. Patient also reports that she has been having diarrhea for about 1 month. Patient states that she has been taking a medication [id number], possibly loperamide without any significant relief. Patient denies nausea vomiting, no fever chills. Related Data Home Medications ?Medication ?Instructions ?Recorded ?Confirmed blood sugar diagnostic (FreeStyle #10 ea 07/24/20 03/27/22 Lite Strips) blood-glucose meter (FreeStyle #1 ea 07/24/20 03/27/22 Lite Meter kit) lancets 28 gauge (FreeStyle #100 ea 07/24/20 03/27/22 Lancets) albuterol sulfate 90 mcg/actuation 4 puff PO Q4-6H PRN Wheezing 01/13/22 03/27/22 aerosol inhaler (ProAir HFA) dulaglutide 1.5 mg/0.5 mL 1.5 mg subcut FR 01/13/22 03/27/22 subcutaneous pen injector (Trulicity) gabapentin 100 mg capsule 2 cap PO BID 01/13/22 03/27/22 insulin glargine 100 unit/mL 8 - 10 unit subcut BEDTIME 01/13/22 03/27/22 subcutaneous solution (Lantus U-100 Insulin) guaifenesin 100 mg/5 mL oral liquid 200 mg PO Q4H PRN Cough 03/27/22 03/27/22 levothyroxine 75 mcg tablet 1 tab PO DAILY@0600 03/27/22 03/27/22 montelukast 10 mg tablet 1 tab PO BEDTIME 03/27/22 03/27/22 omeprazole 20 mg capsule,delayed 1 cap PO DAILY@0630 03/27/22 03/27/22 release quetiapine 100 mg tablet 1 tab PO BID 03/27/22 03/27/22 rosuvastatin 40 mg tablet 1 tab PO DAILY 03/27/22 03/27/22 sertraline 50 mg tablet 1 tab PO DAILY 03/27/22 03/27/22 olmesartan 20 mg tablet 20 mg PO DAILY 03/28/22 03/28/22 Previous Rx's ?Medication ?Instructions ?Recorded azithromycin 250 mg tablet 250 mg PO DAILY 4 days #4 tabs 03/28/22 (Zithromax) prednisone 20 mg tablet 20 mg PO DAILY #4 tabs 03/28/22 diphenoxylate-atropine 2.5 1 tab PO BID PRN diarrhea #10 tabs 07/02/24 mg-0.025 mg tablet (Lomotil) Allergies Allergy/AdvReac Type Severity Reaction Status Date / Time lisinopril [LISINOPRIL] Allergy Unknown UNKNOWN Verified 07/02/24 01:58 Penicillins Allergy Unknown RASH Verified 07/02/24 01:58 sulfamethoxazole Allergy Unknown RASH Verified 07/02/24 01:58 trimethoprim Allergy Unknown RASH Verified 07/02/24 01:58 Review of Systems 2 Review of Systems: Constitutional : No Weight loss, No Fever, No Chills, No Night Sweats, No Fatigue, No Malaise ENT/Mouth : No Hearing loss, No Ear Pain, No Nasal Congestion, No Sinus Pain, No Hoarseness, No sore throat, No Rhinorrhea, No Swallowing Difficulty Eyes: No Eye Pain, No Swelling, No Redness, No Foreign Body, No Discharge, No Vision Changes Cardiovascular : No Chest Pain, No SOB, No Dyspnea on Exertion, No Orthopnea, No Edema, No Palpitations Respiratory : No Cough, No Sputum, No Wheezing, No Smoke Exposure, No Dyspnea Gastrointestinal : No Nausea, No Vomiting, complaining of chronic diarrhea for over a month, epigastric abdominal discomfort/burning Genitourinary : no irregular bleeding, No Dysuria, No Urinary Frequency, No Hematuria, No Urinary Incontinence, No Urgency, No Flank Pain, No Urinary Flow Changes, No Hesitancy Musculoskeletal : No joint pain, No Myalgias, No Joint Swelling Skin : No Skin Lesions, No rash Neuro : No Weakness, No Numbness, No Paresthesias, No Loss of Consciousness, No Dizziness, No Headache Psych : Complaining of anxiety No Depression, No SI/HI/AH/VH, No Social Issues, Heme/Lymph: No Bruising, No Bleeding,No Lymphadenopathy Endocrine : No Polyuria, No Polydipsia, No Temperature Intolerance PMFSH Past Medical History Medical History Smoking Other and unspecified hyperlipidemia Essential hypertension Type 2 diabetes mellitus with unspecified complications Palpitations Hypotension Anemia Migraine aura without headache Anxiety Depression Asthma Hyperlipidemia LDL goal <100 Vitamin D insufficiency Type 2 diabetes mellitus with hyperglycemia, with long-term current use of insulin Surgical History History of cholecystectomy Family History Family History Mother Diabetes Brother Diabetes Social History Social History Alcohol intake: current Alcohol intake frequency: holidays/special occasions only Alcohol type: beer and wine Smoked in Last 30 Days: Yes Use of substances other than those prescribed or required for medical reasons: No Advance Directives: No Advance Directives Information Provided: Yes Do you have a plan to hurt others: No Plan Patient : No service: No Current occupational status: unemployed Physical Exam 2 Vital Signs: Vital Signs: Last Vital Signs Temp 98.6 F 07/02/24 06:26 Pulse 77 07/02/24 06:26 Resp 20 07/02/24 06:26 BP 133/62 07/02/24 06:26 Pulse Ox 96 07/02/24 06:26 O2 Del Method Room Air 07/02/24 06:26 BMI result Body Mass Index 36.1 Const: Other: Appearance: Alert. Oriented X3. No acute distress. Eyes: Pupils equal, round and reactive to light. ENT: Pharynx normal. Neck: Normal inspection. Neck supple. No lymph nodes noted. No crepitus CVS: Normal heart rate and rhythm. Pulses normal. Normal S1 and S2 Respiratory: No respiratory distress. Breath sounds normal. No Wheezing. No rales Abdomen: Soft and nontender. No rigidity. No distention. Skin: Skin warm and dry. Normal skin color. Normal skin turgor. Extremities: No lower extremity edema. No Lacerations. No Rash Neuro: Oriented X 3. No motor deficit. No sensory deficit. Moving all extremities. No slurred speech. CN 2 through 12 grossly intact Psych: calm, cooperative, normal affect Medications Administered Generic Name Dose Route Start Last Admin Trade Name Freq PRN Reason Stop Dose Admin Lactated Ringer's 2,000 mls @ 999 mls/hr 07/02/24 06:00 07/02/24 06:24 Lr IV 07/02/24 08:00 999 mls/hr .Q2H1M TRINH Administration Discontinued Medications Generic Name Dose Route Start Last Admin Trade Name Gabrielq PRN Reason Stop Dose Admin Al Hydroxide/Mg Hydroxide 15 ml 07/02/24 05:05 07/02/24 05:18 Magnesium Hydrox/Alum Hydrox 30 Ml Oral.Susp PO 07/02/24 05:06 15 ml ONCE ONE Administration Diphenoxylate HCl/Atropine 1 tab 07/02/24 05:05 07/02/24 05:17 Diphenoxylate/Atrop 2.5/0.025 Tablet PO 07/02/24 05:06 1 tab ONCE ONE Administration Lidocaine HCl 15 ml 07/02/24 05:05 07/02/24 05:17 Lidocaine Hcl Viscous 2 % 15 Ml Solution MUCOUS MEM 07/02/24 05:06 15 ml ONCE ONE Administration Lorazepam 1 mg 07/02/24 05:05 07/02/24 05:17 Lorazepam 1 Mg Tablet PO 07/02/24 05:06 1 mg ONCE ONE Administration Potassium Chloride 60 meq 07/02/24 03:49 07/02/24 04:03 Potassium Chloride Packet 20 Meq Packet PO 07/02/24 03:50 60 meq ONCE ONE Administration Potassium Chloride 60 meq 07/02/24 05:53 07/02/24 06:19 Potassium Chloride Packet 20 Meq Packet PO 07/02/24 05:54 60 meq ONCE ONE Administration Medical Decision Making Medical Decision Making MDM Narrative: My interpretation of labs: Normal hematology, chemistry shows a potassium of 2.7. Patient's serology tested negative for influenza, RSV and COVID. -chest x-ray does not show any acute abnormality. -here in the emergency room, patient very anxious, requested p.o. medication for anxiety, given 1 dose of p.o. Ativan. -patient was given p.o. potassium also. Patient's BNP will be repeated. -for the chronic diarrhea, seems that patient has been taking loperamide without any significant relief. Patient was given a GI cocktail for the burning sensation in the epigastric area and also given Lomotil. -patient will be given a prescription for Lomotil, discussed with the patient that she needs take extreme care to not have any children get close to this medication -patient's potassium was rechecked, it actually dropped after p.o. medication. Patient receiving lactated Ringer's, IV potassium and p.o. potassium. -patient's magnesium 1.1. We will repeated 1st, 2 g of IV magnesium. Then we will work on the potassium. Patient's nurse informed -I discussed the patient with Dr. Castaneda, patient being admitted. Differential Diagnosis Differential Diagnoses: The differential diagnosis associated with the presentation includes (Dehydration, chronic diarrhea,) Admission/Observation Consideration of admission/observation: Escalation of care including admission/observation considered Consult Healthcare Provider Management of the patient was discussed with: Hospitalist Lab Data MDM Lab Attestation statement: I reviewed the patient's lab results. 07/02/24 02:34 07/02/24 05:29 Labs: Lab Results 07/02/24 07/02/24 Range/Units 02:34 05:29 WBC 9.6 (4.8-10.8) X10*3/uL RBC 4.12 L (4.20-5.50) X10*6/uL Hgb 11.3 L (12.0-16.0) g/dl Hct 33.2 L (37.0-47.0) % MCV 80.6 (80.0-98.0) fL MCH 27.4 (27.0-33.0) pg MCHC 34.0 (31.0-35.0) g/dl RDW 13.6 (11.0-16.0) % Plt Count 241 (160-400) X10*3/uL MPV 11.1 (9.4-12.3) fL Immature Gran % (Auto) 0.2 (0.0-0.4) % Neut % (Auto) 64.6 (45-73) % Lymph % (Auto) 25.9 (20-40) % [place] % (Auto) 5.4 (2-11) % Eos % (Auto) 3.5 (0-4) % Baso % (Auto) 0.4 (0-2) % Lymph # (Auto) 2.5 (1.2-4.9) X10*3/uL [place] # (Auto) 0.5 (0.1-1.2) X10*3/uL Eos # (Auto) 0.3 (0.0-0.4) X10*3/uL Baso # (Auto) 0.0 (0.0-0.2) X10*3/uL Abs Immat Gran (auto) 0.02 (0.00-0.03) X10*3/uL Absolute Neuts (auto) 6.2 (2.0-8.3) x10*3/uL Absolute Nucleated RBC 0.000 (0.0-0.012) X10*3/uL Nucleated RBC % (auto) 0.0 (0.0-0.2) /100WBC Sodium 146 H 146 H (135-145) mmol/L Potassium 2.7 L* 2.3 L* (3.3-5.1) mmol/L Chloride 98 98 (96-108) mmol/L Carbon Dioxide 32 H 31 H (22-29) mmol/L Anion Gap 19 19 (12-20) BUN 7 L 7 L (9-16) mg/dL Creatinine 1.12 1.01 (0.5-1.4) mg/dL Estim Creat Clear Calc 55.2 61.1 Estimated GFR 51 57 Random Glucose 165 H 172 H (60-115) mg/dL Calcium 8.1 L D 8.2 L (8.4-10.2) mg/dL Total Bilirubin 0.4 (0.0-1.0) mg/dL AST 21 (5-31) U/L ALT 9 (0-31) U/L Alkaline Phosphatase 88 (39-117) U/L Troponin I High Sens 4.5 (<3.5-17.0) ng/L Total Protein 6.9 (6.5-8.0) g/dL Albumin 3.8 (3.5-5.0) g/dL Influenza Type A (PCR) NEGATIVE (Negative) Influenza Type B (PCR) NEGATIVE (Negative) RSV RNA Qual (PCR) NEGATIVE (Negative) SARS-CoV-2 RNA (RT-PCR) NEGATIVE (Negative) Independent Interpretation I performed an independent interpretation of an: Plain X-Ray Radiology Impression Discussion of test interpretation with radiology: I have reviewed the radiologist's reading. Radiologist Impression: Normal appearance of the cardiomediastinal structures. No effusions or pneumothoraces. Normal pattern of pulmonary vasculature. No focal pulmonary consolidation. No skeletal abnormalities identified. XR/XR chest 1V IMPRESSION: Normal chest radiograph. No cardiopulmonary abnormalities identifie Critical Care Time Critical Care Time Critical Care Time: Yes Total Critical Care Time: 30 Attestation: I have personally provided critical care time. Time includes review of lab data, radiology results, discussion with consultants, and monitoring for potential decompensation. Intervention performed as documented. Discharge Plan Discharge Clinical Impression: Acute hypokalemia, Anxiety, Atypical chest pain, Diarrhea, Hypomagnesemia Patient Disposition: Admitted As Inpatient Additional Instructions: Please follow-up with your primary care physician tomorrow. If you have any worsening or new symptoms, please return to the emergency room or call 911 Print Language: Maori
[2024-07-02] MEDS: LORazepam 1 MG TABLET PO (05:17)
[2024-07-02] MEDS: Lidocaine HCl Viscous 2 % 15 ML SOLUTION MUCOUS MEM (05:17)
[2024-07-02] MEDS: Diphenoxylate/Atrop 2.5/0.025 TABLET 1 TAB PO (05:17)
[2024-07-02] MEDS: Magnesium Hydrox/Alum Hydrox 30 ML ORAL.SUSP 15 ML PO (05:18)
[2024-07-02 05:52] LABS: Anion Gap 19 (12-20); Blood Urea Nitrogen 7 mg/dL (9-16); Calcium 8.2 mg/dL (8.4-10.2); Carbon Dioxide 31 mmol/L (22-29); Chloride 98 mmol/L (96-108); Creatinine Clr Calc Pharmacy 61.1; Estimated Glomerular Filt Rate 57; Glucose Random 172 mg/dL (60-115); Potassium 2.3 mmol/L (3.3-5.1); Sodium 146 mmol/L (135-145)
[2024-07-02] MEDS: Lactated Ringers 2,000 ML 999 ML IV (06:24)
[2024-07-02 07:02] LABS: Magnesium 1.1 mg/dL (1.6-2.6)
[2024-07-02] MEDS: Magnesium Sulfate/H2O 2 GM/50 ML PIGGYBACK IV (07:26)
[2024-07-02] MEDS: Potassium Chloride/H20 10 MEQ/100 ML PIGGYBACK 100 MEQ IV ×4 (08:57→13:24)
--- NOTE | 2024-07-02 09:10 | PHA.MEDREC ---
Pharmacy Consult ? Medication Reconciliation Pharmacy has completed the medication reconciliation. Utilized tube winder services. Spoke to pt to confirm meds. Per patient, they report to still be taking ASA 81mg, B12 2000mcg, metformin 500mg BID, montelukast 10mg, omeprazole 20mg, rosuvastatin 40mg, and sertraline 50mg (these were last filled in December for a 90DS).
[2024-07-02] MEDS: Lactated Ringers 1,000 ML 100 ML IVCONT ×2 (10:24→21:57)
[2024-07-02] MEDS: Omeprazole 40 MG CAPSULE.DR PO (10:28)
[2024-07-02] MEDS: Nicotine 21 MG PATCH.TD24 TRANSDERMA (10:28)
[2024-07-02] MEDS: Enoxaparin Sodium 40 MG/0.4 ML SYRINGE SUBCUT (10:28)
--- NOTE | 2024-07-02 11:57 | PC.NURSE ---
assumed care of pt at 1100, pt 0800 kcl infusing at time of handoff- no complaints of pain at this time- pt oob to BR independently- pt awaiting medsurg bed assignment
[2024-07-02 11:58] LABS: Glucose, Whole Blood 240 mg/dL (60-115)
[2024-07-02] MEDS: Acetaminophen 325 MG TABLET 650 MG PO (12:40)
--- NOTE | 2024-07-02 12:55 | PC.NURSE ---
pt medicated w/ 650mg APAP for headache
[2024-07-02] MEDS: Insulin Lispro 100 UNIT/ML 3 ML VIAL SUBCUT ×3 (13:23→21:54)
--- NOTE | 2024-07-02 14:33 | P.HPHOSP_ITS ---
History of Present Illness Date of Service: 07/02/24 Chief Complaint: Worsening diarrhea Patient presents to the emergency room with worsening of chronic diarrhea to the point of abdominal pain. She also notes epigastric burning that has been causing extreme anxiety. She has failed loperamide and presents to ER for treatment. In the ER given a bolus of IV fluids along with Ativan. Labs demonstrated a severe hypokalemia/hypomagnesemia which were repleted. Admission was requested Review of Systems 2 Review of Systems: Denies chest pain Denies nausea vomiting admits to worsening diarrhea Denies fever chills Denies shortness of breath PMFSH Medical History Smoking Other and unspecified hyperlipidemia Essential hypertension Type 2 diabetes mellitus with unspecified complications Palpitations Hypotension Anemia Migraine aura without headache Anxiety Depression Asthma Hyperlipidemia LDL goal <100 Vitamin D insufficiency Type 2 diabetes mellitus with hyperglycemia, with long-term current use of insulin Family History Mother Diabetes Brother Diabetes Surgical History History of cholecystectomy Social History Alcohol intake: current Alcohol intake frequency: holidays/special occasions only Alcohol type: beer and wine Smoked in Last 30 Days: Yes Use of substances other than those prescribed or required for medical reasons: No Advance Directives: No Advance Directives Information Provided: Yes Do you have a plan to hurt others: No Plan Patient : No service: No Current occupational status: unemployed Meds Allergies Allergy/AdvReac Type Severity Reaction Status Date / Time lisinopril [LISINOPRIL] Allergy Unknown UNKNOWN Verified 07/02/24 01:58 Penicillins Allergy Unknown RASH Verified 07/02/24 01:58 sulfamethoxazole Allergy Unknown RASH Verified 07/02/24 01:58 trimethoprim Allergy Unknown RASH Verified 07/02/24 01:58 Active Medications: Current Medications Acetaminophen (Acetaminophen 325 Mg Tablet) 650 mg PO Q6H PRN PRN Reason: Pain, Mild (Pain Scale 1-3), fever or headache Last Admin: 07/02/24 12:40 Dose: 650 mg Calcium Carbonate (Calcium Carbonate 750 Mg Tab.Chew) 750 mg PO Q4H PRN PRN Reason: Heartburn Enoxaparin Sodium (Enoxaparin Sodium 40 Mg/0.4 Ml Syringe) 40 mg SUBCUT Q24H [facility] Last Admin: 07/02/24 10:28 Dose: 40 mg Glucose (Glucose Gel 15 Gm Gel..Gram.) 15 gm PO Q15M PRN; Protocol PRN Reason: per Hypoglycemia Standing Ord. Lactated Ringer's (Lr) 1,000 mls @ 100 mls/hr IVCONT .Q10H [facility] Last Admin: 07/02/24 10:24 Dose: 100 mls/hr Dextrose (D10) 250 mls @ 750 mls/hr IV Q15M PRN; Protocol PRN Reason: per Hypoglycemia Standing Ord. Insulin Human Lispro (Insulin Lispro 100 Unit/Ml 3 Ml Vial) 0 unit SUBCUT QIDACHS [facility]; Protocol Last Admin: 07/02/24 13:23 Dose: 4 unit Loperamide HCl (Loperamide Hcl 2 Mg Capsule) 2 mg PO Q6H PRN PRN Reason: Diarrhea Magnesium Hydroxide (Milk Of Magnesia 30 Ml Oral.Susp) 30 ml PO DAILY PRN PRN Reason: Constipation Melatonin (Melatonin 3 Mg Tablet) 6 mg PO BEDTIME PRN PRN Reason: Insomnia Metformin HCl (Metformin Hcl 500 Mg Tablet) 500 mg PO BIDWM [facility] Nicotine (Nicotine 21 Mg Patch.Td24) 21 mg TRANSDERMA DAILY [facility] Last Admin: 07/02/24 10:28 Dose: 21 mg Sodium Chloride (0.9 % Sodium Chloride Flush 3 Ml Syringe) 3 ml IVFLUSH QSHIFT [facility] Last Admin: 07/02/24 10:00 Dose: Not Given Home Medications ?Medication ?Instructions ?Recorded ?Confirmed ?Last Taken ?Type blood sugar diagnostic (FreeStyle #10 ea 07/24/20 03/27/22 Unknown History Lite Strips) blood-glucose meter (FreeStyle #1 ea 07/24/20 03/27/22 Unknown History Lite Meter kit) lancets 28 gauge (FreeStyle #100 ea 07/24/20 03/27/22 Unknown History Lancets) gabapentin 100 mg capsule 2 cap PO BID 01/13/22 07/02/24 07/01/24 History insulin glargine 100 unit/mL 22 unit subcut BEDTIME 01/13/22 07/02/24 07/01/24 History subcutaneous solution (Lantus U-100 Insulin) levothyroxine 75 mcg tablet 1 tab PO DAILY@0600 03/27/22 07/02/24 07/01/24 History montelukast 10 mg tablet 1 tab PO BEDTIME 03/27/22 07/02/24 07/01/24 History omeprazole 20 mg capsule,delayed 1 cap PO DAILY@0630 03/27/22 07/02/24 07/01/24 History release rosuvastatin 40 mg tablet 1 tab PO DAILY 03/27/22 07/02/24 07/01/24 History sertraline 50 mg tablet 1 tab PO DAILY 03/27/22 07/02/24 07/01/24 History olmesartan 20 mg tablet 20 mg PO DAILY 03/28/22 07/02/24 07/01/24 History albuterol sulfate 90 mcg/actuation 2 puff inhalation Q6H PRN 07/02/24 07/02/24 Unknown History aerosol inhaler (Ventolin HFA) Shortness Of Breath Or Wheezing aspirin 81 mg tablet,delayed 81 mg PO DAILY 07/02/24 07/02/24 07/01/24 History release cyanocobalamin (vitamin B-12) 2,000 mcg PO DAILY 07/02/24 07/02/24 07/01/24 History 1,000 mcg tablet dulaglutide 4.5 mg/0.5 mL 4.5 mg subcut FR@0900 07/02/24 07/02/24 07/01/24 History subcutaneous pen injector (Trulicity) insulin lispro 100 unit/mL 1 sliding scale dose subcut TIDAC 07/02/24 07/02/24 07/01/24 History subcutaneous pen metformin 500 mg tablet 500 mg PO BIDWM 07/02/24 07/02/24 07/01/24 History quetiapine 200 mg tablet 200 mg PO BEDTIME 07/02/24 07/02/24 07/01/24 History Physical Exam 2 Vital Signs and Narrative: Vital Signs: Last Vital Signs Temp 99.1 F 07/02/24 11:36 Pulse 84 07/02/24 11:36 Resp 16 07/02/24 11:36 BP 117/44 L 07/02/24 11:36 Pulse Ox 95 07/02/24 11:36 O2 Del Method Room Air 07/02/24 11:36 BMI result Body Mass Index 36.1 Const: Other: Awake alert no acute distress Resp: Other: Scattered expiratory wheezes throughout no rales or rhonchi noted Cardio: Other: No S4; positive S1-S2; no S3 murmurs rubs or gallops GI: Other: Soft nontender nondistended normoactive bowel sounds Extrem: Other: No edema bilaterally Results Labs 07/02/24 02:34 07/02/24 05:29 Labs: Laboratory Results - last 24 hr 07/02/24 07/02/24 07/02/24 02:34 05:29 11:54 MCV 80.6 MCH 27.4 MCHC 34.0 RDW 13.6 Plt Count 241 MPV 11.1 Immature Gran % (Auto) 0.2 Neut % (Auto) 64.6 Lymph % (Auto) 25.9 [place] % (Auto) 5.4 Eos % (Auto) 3.5 Baso % (Auto) 0.4 Lymph # (Auto) 2.5 [place] # (Auto) 0.5 Eos # (Auto) 0.3 Baso # (Auto) 0.0 Abs Immat Gran (auto) 0.02 Absolute Neuts (auto) 6.2 Absolute Nucleated RBC 0.000 Nucleated RBC % (auto) 0.0 Anion Gap 19 19 Estim Creat Clear Calc 55.2 61.1 Estimated GFR 51 57 POC Glucose 240 H Random Glucose 165 H 172 H Calcium 8.1 L D 8.2 L Magnesium 1.1 L* Total Bilirubin 0.4 AST 21 ALT 9 Alkaline Phosphatase 88 Troponin I High Sens 4.5 Total Protein 6.9 Albumin 3.8 Influenza Type A (PCR) NEGATIVE Influenza Type B (PCR) NEGATIVE RSV RNA Qual (PCR) NEGATIVE SARS-CoV-2 RNA (RT-PCR) NEGATIVE Imaging Radiologist's Impressions: Impressions Chest X-Ray 07/02/24 03:29 IMPRESSION: Normal chest radiograph. No cardiopulmonary abnormalities identified. Electronically signed by: Peter Loyd MD 07/02/2024 04:38 AM [facility] [place] and Plan (1) Diarrhea: Qualifiers: Diarrhea type: unspecified type Qualified Code(s): R19.7 - Diarrhea, unspecified Status: Acute (2) Acute hypokalemia: Status: Acute (3) Type 2 diabetes mellitus with unspecified complications: Status: Acute (4) Essential hypertension: Status: Acute Plan 54-year-old with acute on chronic diarrhea and abdominal burning presents to the ER for failure to respond to outpatient therapies. Found to be severely hypokalemic and hypomagnesemic 1. Acute on chronic diarrhea -GI panel pending -symptomatic loperamide 2. Hypokalemia/hypomagnesemia -repleted in ER overnight -check stat reading at 14:00 -replete as indicated -followed daily renals/divalents 3. Type 2 diabetes -continue outpatient basal insulin -lispro correctional scale -diabetic diet -adjust as indicated 4. Hypertension -acceptable control on current therapies -adjust as indicated Full code Lovenox Requires at least 2 midnights of inpatient stay for IV repletion of potassium and magnesium and workup of diarrhea including specialty consultation Quality Stroke Does the patient have a stroke diagnosis?: No VTE Prior VTE?: No VTE Risk Level:: Medical - moderate - high VTE Device Contraindication: Treatment Not Indicated VTE Drug Contraindication: N/A - Med Ordered
[2024-07-02 16:01] LABS: Anion Gap 19 (12-20); Blood Urea Nitrogen 5 mg/dL (9-16); Calcium 7.8 mg/dL (8.4-10.2); Carbon Dioxide 23 mmol/L (22-29); Chloride 106 mmol/L (96-108); Creatinine Clr Calc Pharmacy 69.4; Estimated Glomerular Filt Rate > 60; Glucose Random 181 mg/dL (60-115); Sodium 144 mmol/L (135-145)
[2024-07-02 18:33] LABS: Glucose, Whole Blood 205 mg/dL (60-115)
--- NOTE | 2024-07-02 18:38 | PC.NURSE ---
re: insulin- no trays on floor as of 1814
[2024-07-02] MEDS: metFORMIN HCl 500 MG TABLET PO (18:42)
[2024-07-02 20:53] LABS: Glucose, Whole Blood 178 mg/dL (60-115)
[2024-07-02] MEDS: QUEtiapine Fumarate 200 MG TABLET PO (21:53)
[2024-07-02] MEDS: Gabapentin 100 MG CAPSULE 200 MG PO (21:53)
[2024-07-02] MEDS: Montelukast Sodium 10 MG TABLET PO (21:53)
[2024-07-02] MEDS: Insulin Glargine,Hum.rec.anlog 100 UNIT/ML 10 ML VIAL 22 UNIT SUBCUT (21:54)
[2024-07-03] MEDS: Acetaminophen 325 MG TABLET 650 MG PO (00:18)
[2024-07-03 03:53] VITALS: BP 130/58; PULSE 82; RESP 17; TEMP 36.4; O2SAT 95
[2024-07-03] MEDS: Levothyroxine Sodium 75 MCG TABLET PO (05:53)
[2024-07-03] MEDS: Omeprazole 20 MG CAPSULE.DR PO (05:53)
[2024-07-03 06:06] LABS: MANUAL DIFF FLAG NO
[2024-07-03 06:10] LABS: Basophils Percent Auto 0.5 % (0-2); Eosinophils Absolute Auto 0.3 X10*3/uL (0.0-0.4); Eosinophils Percent Auto 4.3 % (0-4); Hematocrit 30.5 % (37.0-47.0); Hemoglobin 10.1 g/dl (12.0-16.0); Imm Gran Abs Auto 0.01 X10*3/uL (0.00-0.03); Imm Gran Pct Auto 0.2 % (0.0-0.4); Lymphocytes Percent Auto 34.2 % (20-40); Mean Corpuscular HGB Conc 33.1 g/dl (31.0-35.0); Mean Corpuscular Hemoglobin 27.4 pg (27.0-33.0); Mean Corpuscular Volume 82.9 fL (80.0-98.0); Mean Platelet Volume 11.8 fL (9.4-12.3); Monocytes Absolute Auto 0.3 X10*3/uL (0.1-1.2); Monocytes Percent Auto 5.1 % (2-11); Neutrophils Absolute Auto 3.3 x10*3/uL (2.0-8.3); Neutrophils Percent Auto 55.7 % (45-73); Platelet Count 199 X10*3/uL (160-400); Red Blood Count 3.68 X10*6/uL (4.20-5.50); Red Cell Distribution Width 13.7 % (11.0-16.0); White Blood Count 5.9 X10*3/uL (4.8-10.8)
[2024-07-03 07:01] LABS: Alanine Aminotransferase < 6 U/L (0-31); Albumin Level 3.2 g/dL (3.5-5.0); Alkaline Phosphatase 77 U/L (39-117); Anion Gap 13 (12-20); Aspartate Amino Transferase 16 U/L (5-31); Bilirubin Total 0.3 mg/dL (0.0-1.0); Blood Urea Nitrogen 6 mg/dL (9-16); Carbon Dioxide 32 mmol/L (22-29); Chloride 105 mmol/L (96-108); Creatinine Clr Calc Pharmacy 81.9; Estimated Glomerular Filt Rate > 60; Glucose Random 97 mg/dL (60-115); Potassium 2.9 mmol/L (3.3-5.1); Sodium 147 mmol/L (135-145); Total Protein 5.9 g/dL (6.5-8.0)
[2024-07-03 07:06] VITALS: BP 126/60; PULSE 78; RESP 18; TEMP 36.4; O2SAT 97
[2024-07-03 07:09] LABS: Glucose, Whole Blood 91 mg/dL (60-115)
[2024-07-03] MEDS: Potassium Chloride Packet 20 MEQ PACKET 40 MEQ PO (08:36)
[2024-07-03] MEDS: Sertraline HCL 50 MG TABLET PO (08:37)
[2024-07-03] MEDS: Cyanocobalamin (Vitamin B-12) 1,000 MCG TABLET 2000 MCG PO (08:37)
[2024-07-03] MEDS: Gabapentin 100 MG CAPSULE 200 MG PO ×2 (08:37→20:23)
[2024-07-03] MEDS: Aspirin Enteric Coated 81 MG TABLET.DR PO (08:37)
[2024-07-03] MEDS: Valsartan 80 MG TABLET PO (08:37)
[2024-07-03] MEDS: metFORMIN HCl 500 MG TABLET PO ×2 (08:37→16:49)
[2024-07-03] MEDS: Nicotine 21 MG PATCH.TD24 TRANSDERMA (08:37)
[2024-07-03] MEDS: Atorvastatin Calcium 80 MG TABLET PO (08:37)
[2024-07-03] MEDS: Enoxaparin Sodium 40 MG/0.4 ML SYRINGE SUBCUT (08:37)
[2024-07-03] MEDS: Lactated Ringers 1,000 ML 100 ML IVCONT (08:38)
--- NOTE | 2024-07-03 10:37 | MHC.CM.PN ---
This CM met with pt with the assistance of a teaching fellow. Pt lives at home with her daughter/[employer] who will transport her home at discharge. Pt uses a rollater walker. New HCP completed, pt named both daughter (Aleksandr), now on file. PCP: DEB, [facility]
[2024-07-03 10:44] LABS: Glucose, Whole Blood 150 mg/dL (60-115)
--- NOTE | 2024-07-03 12:56 | P.PNIM_ITS ---
Subjective Subjective Date of Service: 07/03/24 Interval History: Complaining of generalized weakness, fatigue, decreased appetite denies fever, no chills, no lightheadedness, no dizziness, diarrhea resolved now feels constipated, no nausea, no vomiting or abdominal pain no other acute events overnight. Review of Systems All other symptoms reviewed and are negative Physical Exam 2 Vital Signs: Vital Signs: Last Vital Signs Temp 97.6 F 07/03/24 07:06 Pulse 78 07/03/24 07:06 Resp 18 07/03/24 07:06 BP 126/60 07/03/24 07:06 Pulse Ox 97 07/03/24 07:06 O2 Del Method Room Air 07/03/24 07:06 BMI result Body Mass Index 40.0 Const: Other: General awake alert x3, resting comfortably in no acute distress. Moist mucous membranes Neck no JVD. CVS regular rate rhythm, Respiratory lungs clear to auscultation, no respiratory distress, no wheeze, no rhonchi. Gastrointestinal abdomen soft, obese, non tender, bowel sounds audible, no guarding , no rigidity. Extremities no edema. Neuro non focal Skin no rash Appropriate affect Objective Data Active Medications Acetaminophen (Acetaminophen 325 Mg Tablet) 650 mg PO Q6H PRN PRN Reason: Pain, Mild (Pain Scale 1-3), fever or headache Last Admin: 07/03/24 00:18 Dose: 650 mg Documented By: CATHIE Albuterol Sulfate (Albuterol Sulfate 90 Mcg 8 Gm Inhaler) 2 puff INHALE RQ6H PRN PRN Reason: Shortness Of Breath Or Wheezing Aspirin (Aspirin Enteric Coated 81 Mg Tablet.) 81 mg PO DAILY [facility] Last Admin: 07/03/24 08:37 Dose: 81 mg Documented By: PREETHI Atorvastatin Calcium (Atorvastatin Calcium 80 Mg Tablet) 80 mg PO DAILY [facility] Last Admin: 07/03/24 08:37 Dose: 80 mg Documented By: PREETHI Calcium Carbonate (Calcium Carbonate 750 Mg Tab.Chew) 750 mg PO Q4H PRN PRN Reason: Heartburn Cyanocobalamin (Cyanocobalamin (Vitamin B-12) 1,000 Mcg Tablet) 2,000 mcg PO DAILY [facility] Last Admin: 07/03/24 08:37 Dose: 2,000 mcg Documented By: PREETHI Enoxaparin Sodium (Enoxaparin Sodium 40 Mg/0.4 Ml Syringe) 40 mg SUBCUT Q24H [facility] Last Admin: 07/03/24 08:37 Dose: 40 mg Documented By: PREETHI Gabapentin (Gabapentin 100 Mg Capsule) 200 mg PO BID [facility] Last Admin: 07/03/24 08:37 Dose: 200 mg Documented By: PREETHI Glucose (Glucose Gel 15 Gm Gel..Gram.) 15 gm PO Q15M PRN; Protocol PRN Reason: per Hypoglycemia Standing Ord. Lactated Ringer's (Lr) 1,000 mls @ 100 mls/hr IVCONT .Q10H [facility] Last Admin: 07/03/24 08:38 Dose: 100 mls/hr Documented By: PREETHI Dextrose (D10) 250 mls @ 750 mls/hr IV Q15M PRN; Protocol PRN Reason: per Hypoglycemia Standing Ord. Insulin Glargine (Insulin Glargine,Hum.Rec.Anlog 100 Unit/Ml 10 Ml Vial) 22 unit SUBCUT BEDTIME [facility] Last Admin: 07/02/24 21:54 Dose: 22 unit Documented By: CATHIE Insulin Human Lispro (Insulin Lispro 100 Unit/Ml 3 Ml Vial) 0 unit SUBCUT QIDACHS [facility]; Protocol Last Admin: 07/03/24 11:40 Dose: Not Given Documented By: PREETHI Non-Admin Reason: No Insulin Coverage Levothyroxine Sodium (Levothyroxine Sodium 75 Mcg Tablet) 75 mcg PO DAILY@0600 [facility] Last Admin: 07/03/24 05:53 Dose: 75 mcg Documented By: CATHIE Loperamide HCl (Loperamide Hcl 2 Mg Capsule) 2 mg PO Q6H PRN PRN Reason: Diarrhea Magnesium Hydroxide (Milk Of Magnesia 30 Ml Oral.Susp) 30 ml PO DAILY PRN PRN Reason: Constipation Melatonin (Melatonin 3 Mg Tablet) 6 mg PO BEDTIME PRN PRN Reason: Insomnia Metformin HCl (Metformin Hcl 500 Mg Tablet) 500 mg PO BIDWM [facility] Last Admin: 07/03/24 08:37 Dose: 500 mg Documented By: PREETHI Montelukast Sodium (Montelukast Sodium 10 Mg Tablet) 10 mg PO BEDTIME [facility] Last Admin: 07/02/24 21:53 Dose: 10 mg Documented By: CATHIE Nicotine (Nicotine 21 Mg Patch.Td24) 21 mg TRANSDERMA DAILY [facility] Last Admin: 07/03/24 08:37 Dose: 21 mg Documented By: PREETHI Omeprazole (Omeprazole 20 Mg Capsule.Dr) 20 mg PO DAILY@0630 [facility] Last Admin: 07/03/24 05:53 Dose: 20 mg Documented By: CATHIE Quetiapine Fumarate (Quetiapine Fumarate 200 Mg Tablet) 200 mg PO BEDTIME [facility] Last Admin: 07/02/24 21:53 Dose: 200 mg Documented By: CATHIE Sertraline HCl (Sertraline Hcl 50 Mg Tablet) 50 mg PO DAILY [facility] Last Admin: 07/03/24 08:37 Dose: 50 mg Documented By: PREETHI Sodium Chloride (0.9 % Sodium Chloride Flush 3 Ml Syringe) 3 ml IVFLUSH QSHIFT [facility] Last Admin: 07/03/24 08:45 Dose: Not Given Documented By: PREETHI Non-Admin Reason: IV Running Valsartan (Valsartan 80 Mg Tablet) 80 mg PO DAILY [facility] Last Admin: 07/03/24 08:37 Dose: 80 mg Documented By: PREETHI Labs 07/03/24 05:24 07/03/24 05:24 Labs: Laboratory Results - last 24 hr 07/02/24 07/02/24 07/02/24 15:00 18:28 20:48 MCV MCH MCHC RDW Plt Count MPV Immature Gran % (Auto) Neut % (Auto) Lymph % (Auto) [place] % (Auto) Eos % (Auto) Baso % (Auto) Lymph # (Auto) [place] # (Auto) Eos # (Auto) Baso # (Auto) Abs Immat Gran (auto) Absolute Neuts (auto) Absolute Nucleated RBC Nucleated RBC % (auto) Anion Gap 19 Estim Creat Clear Calc 69.4 Estimated GFR > 60 POC Glucose 205 H 178 H Random Glucose 181 H Calcium 7.8 L Total Bilirubin AST ALT Alkaline Phosphatase Total Protein Albumin 07/03/24 07/03/24 07/03/24 05:24 07:03 10:38 MCV 82.9 MCH 27.4 MCHC 33.1 RDW 13.7 Plt Count 199 MPV 11.8 Immature Gran % (Auto) 0.2 Neut % (Auto) 55.7 Lymph % (Auto) 34.2 [place] % (Auto) 5.1 Eos % (Auto) 4.3 H Baso % (Auto) 0.5 Lymph # (Auto) 2.0 [place] # (Auto) 0.3 Eos # (Auto) 0.3 Baso # (Auto) 0.0 Abs Immat Gran (auto) 0.01 Absolute Neuts (auto) 3.3 Absolute Nucleated RBC 0.000 Nucleated RBC % (auto) 0.0 Anion Gap 13 Estim Creat Clear Calc 81.9 Estimated GFR > 60 POC Glucose 91 150 H Random Glucose 97 Calcium 8.0 L Total Bilirubin 0.3 AST 16 ALT < 6 Alkaline Phosphatase 77 Total Protein 5.9 L Albumin 3.2 L Assessment and Plan (1) Hypomagnesemia: Status: Acute (2) Acute hypokalemia: Status: Acute (3) Diarrhea: Status: Acute (4) Smoking: Status: Acute Plan 54-year-old with acute on chronic diarrhea and abdominal burning presents to the ER for failure to respond to outpatient therapies. Found to be severely hypokalemic and hypomagnesemic 1. Acute on chronic diarrhea -stool panel un collected since diarrhea resolved, hold loperamide follow clinical course , recommend out of bed to chair, DC IV fluids 2. Hypokalemia/hypomagnesemia -potassium dropped to 2.9, will replete and follow labs , magnesium pending 3. Type 2 diabetes -blood sugars stable, on diabetic diet, on Lantus 22 units, insulin sliding scale and metformin 500 b.i.d., follow point of care blood sugar closely 4. Hypertension -on Diovan 80 mg daily 5. Tobacco use disorder continue nicotine patch 21 mg daily 6. Class 3 morbid obesity recommend low calorie diet. 7. Mild acute hypernatremia recommend by mouth fluids, follow BMP Full code Lovenox Requires at least 2 midnights of inpatient stay for IV repletion of potassium and magnesium and workup of diarrhea including specialty consultation Quality Stroke Does the patient have a stroke diagnosis?: No VTE Prior VTE?: No VTE Risk Level:: Medical - moderate - high VTE Device Contraindication: Treatment Not Indicated VTE Drug Contraindication: N/A - Med Ordered
[2024-07-03 13:20] LABS: Magnesium 1.5 mg/dL (1.6-2.6)
[2024-07-03] MEDS: 0.9 % Sodium Chloride Flush 3 ML SYRINGE IVFLUSH ×2 (15:56→20:24)
[2024-07-03 16:00] VITALS: BP 158/67; PULSE 76; RESP 18; TEMP 36.7; O2SAT 99
[2024-07-03 16:27] LABS: Glucose, Whole Blood 122 mg/dL (60-115)
[2024-07-03 20:00] VITALS: BP 160/56; PULSE 77; RESP 17; TEMP 36.9; O2SAT 97
[2024-07-03] MEDS: Albuterol/Iprat 2.5/0.5MG 3 ML AMPUL.NEB INHALE (20:20)
[2024-07-03 20:23] VITALS: PULSE 77; RESP 18; O2SAT 97
[2024-07-03] MEDS: Magnesium Oxide 400 MG TABLET 800 MG PO (20:23)
[2024-07-03] MEDS: QUEtiapine Fumarate 200 MG TABLET PO (20:23)
[2024-07-03] MEDS: Montelukast Sodium 10 MG TABLET PO (20:23)
[2024-07-03] MEDS: Potassium Chloride ER 20 MEQ TAB.ER.PRT PO (20:24)
[2024-07-03] MEDS: Insulin Glargine,Hum.rec.anlog 100 UNIT/ML 10 ML VIAL 22 UNIT SUBCUT (20:25)
[2024-07-03 21:13] LABS: Glucose, Whole Blood 146 mg/dL (60-115)
[2024-07-04] VITALS (7 sets, daily range): BP systolic 125–163; BP diastolic 61–77; PULSE 79–88; RESP 16–19; TEMP 36.3–37.2; O2SAT 93–97
[2024-07-04] MEDS: Levothyroxine Sodium 75 MCG TABLET PO (06:04)
[2024-07-04] MEDS: Omeprazole 20 MG CAPSULE.DR PO (06:04)
[2024-07-04 07:39] LABS: Glucose, Whole Blood 91 mg/dL (60-115)
[2024-07-04 07:52] LABS: Anion Gap 14 (12-20); Blood Urea Nitrogen 8 mg/dL (9-16); Calcium 8.8 mg/dL (8.4-10.2); Carbon Dioxide 31 mmol/L (22-29); Chloride 103 mmol/L (96-108); Creatinine Clr Calc Pharmacy 77.9; Estimated Glomerular Filt Rate > 60; Glucose Random 82 mg/dL (60-115); Magnesium 1.3 mg/dL (1.6-2.6); Potassium 3.3 mmol/L (3.3-5.1); Sodium 145 mmol/L (135-145)
[2024-07-04] MEDS: Nicotine 21 MG PATCH.TD24 TRANSDERMA (08:20)
[2024-07-04] MEDS: Gabapentin 100 MG CAPSULE 200 MG PO ×2 (08:21→20:27)
[2024-07-04] MEDS: Sertraline HCL 50 MG TABLET PO (08:21)
[2024-07-04] MEDS: Enoxaparin Sodium 40 MG/0.4 ML SYRINGE SUBCUT (08:21)
[2024-07-04] MEDS: Atorvastatin Calcium 80 MG TABLET PO (08:21)
[2024-07-04] MEDS: Valsartan 80 MG TABLET PO (08:21)
[2024-07-04] MEDS: Cyanocobalamin (Vitamin B-12) 1,000 MCG TABLET 2000 MCG PO (08:21)
[2024-07-04] MEDS: metFORMIN HCl 500 MG TABLET PO (08:21)
[2024-07-04] MEDS: Aspirin Enteric Coated 81 MG TABLET.DR PO (08:21)
[2024-07-04] MEDS: 0.9 % Sodium Chloride Flush 3 ML SYRINGE IVFLUSH ×2 (08:24→20:27)
[2024-07-04] MEDS: Potassium Chloride ER 20 MEQ TAB.ER.PRT 40 MEQ PO (08:55)
[2024-07-04] MEDS: Magnesium Sulfate/H2O 2 GM/50 ML PIGGYBACK IV (08:55)
[2024-07-04] MEDS: Psyllium seed 3.7 GM PACKET PO (10:53)
[2024-07-04 11:28] LABS: Glucose, Whole Blood 155 mg/dL (60-115)
[2024-07-04] MEDS: Insulin Lispro 100 UNIT/ML 3 ML VIAL SUBCUT ×2 (12:04→22:02)
[2024-07-04] MEDS: iohexoL 350 MG/ML 75 ML INFUS..BTL 85 ML IV (13:16)
--- NOTE | 2024-07-04 15:10 | HO.PM.IMPN ---
Subjective Subjective Date of Service: 07/04/24 Interval History: Complaining of abdominal pain, no bowel movement in last several days, denies nausea, no vomiting, no lightheadedness, no dizziness, no fevers, no chills, no other acute issues overnight. Review of Systems All other system reviewed and are negative. Physical Exam Vital Signs: Vital Signs: Last Vital Signs Temp 99 F 07/04/24 14:00 Pulse 87 07/04/24 14:00 Resp 19 07/04/24 14:00 BP 137/74 07/04/24 14:00 Pulse Ox 95 07/04/24 14:00 O2 Del Method Room Air 07/04/24 14:00 BMI result Body Mass Index 40.0 Const: Other: General awake alert x3, resting comfortably in no acute distress. Moist mucous membranes Neck no JVD. CVS regular rate rhythm, Respiratory lungs clear to auscultation, no respiratory distress, no wheeze, no rhonchi. Gastrointestinal abdomen soft, obese, mild mid abdominal tenderness, bowel sounds audible, no guarding , no rigidity. Extremities no edema. Neuro non focal Skin no rash Appropriate affect Objective Data Active Medications Acetaminophen (Acetaminophen 325 Mg Tablet) 650 mg PO Q6H PRN PRN Reason: Pain, Mild (Pain Scale 1-3), fever or headache Last Admin: 07/03/24 00:18 Dose: 650 mg Documented By: CATHIE Albuterol/Ipratropium (Albuterol/Iprat 2.5/0.5mg 3 Ml Ampul.Neb) 3 ml INHALE Q4H PRN PRN Reason: wheezing Last Admin: 07/03/24 20:20 Dose: 3 ml Documented By: JIMENEZ Aspirin (Aspirin Enteric Coated 81 Mg Tablet.) 81 mg PO DAILY [facility] Last Admin: 07/04/24 08:21 Dose: 81 mg Documented By: SHADI Atorvastatin Calcium (Atorvastatin Calcium 80 Mg Tablet) 80 mg PO DAILY [facility] Last Admin: 07/04/24 08:21 Dose: 80 mg Documented By: SHADI Calcium Carbonate (Calcium Carbonate 750 Mg Tab.Chew) 750 mg PO Q4H PRN PRN Reason: Heartburn Cyanocobalamin (Cyanocobalamin (Vitamin B-12) 1,000 Mcg Tablet) 2,000 mcg PO DAILY [facility] Last Admin: 07/04/24 08:21 Dose: 2,000 mcg Documented By: SHADI Enoxaparin Sodium (Enoxaparin Sodium 40 Mg/0.4 Ml Syringe) 40 mg SUBCUT Q24H [facility] Last Admin: 07/04/24 08:21 Dose: 40 mg Documented By: SHADI Gabapentin (Gabapentin 100 Mg Capsule) 200 mg PO BID [facility] Last Admin: 07/04/24 08:21 Dose: 200 mg Documented By: SHADI Glucose (Glucose Gel 15 Gm Gel..Gram.) 15 gm PO Q15M PRN; Protocol PRN Reason: per Hypoglycemia Standing Ord. Dextrose (D10) 250 mls @ 750 mls/hr IV Q15M PRN; Protocol PRN Reason: per Hypoglycemia Standing Ord. Insulin Glargine (Insulin Glargine,Hum.Rec.Anlog 100 Unit/Ml 10 Ml Vial) 22 unit SUBCUT BEDTIME [facility] Last Admin: 07/03/24 20:25 Dose: 22 unit Documented By: ZACH Insulin Human Lispro (Insulin Lispro 100 Unit/Ml 3 Ml Vial) 0 unit SUBCUT QIDACHS [facility]; Protocol Last Admin: 07/04/24 12:04 Dose: 2 unit Documented By: SHADI Levothyroxine Sodium (Levothyroxine Sodium 75 Mcg Tablet) 75 mcg PO DAILY@0600 [facility] Last Admin: 07/04/24 06:04 Dose: 75 mcg Documented By: ZACH Loperamide HCl (Loperamide Hcl 2 Mg Capsule) 2 mg PO Q6H PRN PRN Reason: Diarrhea Magnesium Hydroxide (Milk Of Magnesia 30 Ml Oral.Susp) 30 ml PO DAILY PRN PRN Reason: Constipation Melatonin (Melatonin 3 Mg Tablet) 6 mg PO BEDTIME PRN PRN Reason: Insomnia Metformin HCl (Metformin Hcl 500 Mg Tablet) 500 mg PO BIDWM [facility] Last Admin: 07/04/24 08:21 Dose: 500 mg Documented By: SHADI Montelukast Sodium (Montelukast Sodium 10 Mg Tablet) 10 mg PO BEDTIME [facility] Last Admin: 07/03/24 20:23 Dose: 10 mg Documented By: ZACH Nicotine (Nicotine 21 Mg Patch.Td24) 21 mg TRANSDERMA DAILY [facility] Last Admin: 07/04/24 08:20 Dose: 21 mg Documented By: SHADI Omeprazole (Omeprazole 20 Mg Capsule.) 20 mg PO DAILY@0630 [facility] Last Admin: 07/04/24 06:04 Dose: 20 mg Documented By: ZACH Psyllium Hydrophilic Mucilloid (Psyllium Seed 3.7 Gm Packet) 3.7 gm PO DAILY [facility] Last Admin: 07/04/24 10:53 Dose: 3.7 gm Documented By: SHADI Quetiapine Fumarate (Quetiapine Fumarate 200 Mg Tablet) 200 mg PO BEDTIME [facility] Last Admin: 07/03/24 20:23 Dose: 200 mg Documented By: ZACH Sertraline HCl (Sertraline Hcl 50 Mg Tablet) 50 mg PO DAILY [facility] Last Admin: 07/04/24 08:21 Dose: 50 mg Documented By: SHADI Sodium Chloride (0.9 % Sodium Chloride Flush 3 Ml Syringe) 3 ml IVFLUSH QSHIFT [facility] Last Admin: 07/04/24 08:24 Dose: 3 ml Documented By: SHADI Valsartan (Valsartan 80 Mg Tablet) 80 mg PO DAILY [facility] Last Admin: 07/04/24 08:21 Dose: 80 mg Documented By: SHADI Labs 07/03/24 05:24 07/04/24 05:40 Labs: Laboratory Results - last 24 hr 07/03/24 07/03/24 07/04/24 16:11 21:04 05:40 Anion Gap 14 Estim Creat Clear Calc 77.9 Estimated GFR > 60 POC Glucose 122 H 146 H Random Glucose 82 Calcium 8.8 D Magnesium 1.3 L* 07/04/24 07/04/24 07:33 11:13 Anion Gap Estim Creat Clear Calc Estimated GFR POC Glucose 91 155 H Random Glucose Calcium Magnesium Assessment and Plan (1) Hypomagnesemia: Status: Acute (2) Acute hypokalemia: Status: Acute (3) Smoking: Status: Acute Plan 54-year-old with acute on chronic diarrhea and abdominal burning presents to the ER for failure to respond to outpatient therapies. Found to be severely hypokalemic and hypomagnesemic 1. Acute on chronic diarrhea -stool panel un collected since diarrhea resolved, now constipated with no bowel movement in last 4 days, hold loperamide follow clinical course , Obtain abdominal ct, recommend out of bed to chair, DC IV fluids Consider GI consult if no improvement 2. Hypokalemia/hypomagnesemia -persistent hypokalemia 3.3 and hypo magnesemia 1.3 will replete and follow labs 3. Type 2 diabetes -blood sugars stable, on diabetic diet, on Lantus 22 units, insulin sliding scale and metformin 500 b.i.d., follow point of care blood sugar closely 4. Hypertension -on Diovan 80 mg daily 5. Tobacco use disorder continue nicotine patch 21 mg daily, counseling done 6. Class 3 morbid obesity recommend low calorie diet. 7. Mild acute hypernatremia resolved with fluids Full code Lovenox Requires at least 2 midnights of inpatient stay for IV repletion of potassium and magnesium and workup of diarrhea/ Quality Stroke Does the patient have a stroke diagnosis?: No VTE Prior VTE?: No VTE Risk Level:: Medical - moderate - high VTE Device Contraindication: Treatment Not Indicated VTE Drug Contraindication: N/A - Med Ordered
--- NOTE | 2024-07-04 15:25 | MHC.CM.PN ---
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
[2024-07-04 16:20] LABS: Glucose, Whole Blood 92 mg/dL (60-115)
[2024-07-04] MEDS: Montelukast Sodium 10 MG TABLET PO (20:26)
[2024-07-04] MEDS: QUEtiapine Fumarate 200 MG TABLET PO (20:27)
[2024-07-04] MEDS: Albuterol/Iprat 2.5/0.5MG 3 ML AMPUL.NEB INHALE (20:56)
[2024-07-04 21:22] LABS: Glucose, Whole Blood 177 mg/dL (60-115)
[2024-07-04] MEDS: Insulin Glargine,Hum.rec.anlog 100 UNIT/ML 10 ML VIAL 22 UNIT SUBCUT (22:02)
[2024-07-04] MEDS: Acetaminophen 325 MG TABLET 650 MG PO (22:05)
[2024-07-05] MEDS: Levothyroxine Sodium 75 MCG TABLET PO (05:47)
[2024-07-05] MEDS: Omeprazole 20 MG CAPSULE.DR PO (05:47)
[2024-07-05 05:50] VITALS: BP 121/71; PULSE 84; RESP 16; TEMP 36; O2SAT 96
[2024-07-05 06:22] LABS: Anion Gap 17 (12-20); Blood Urea Nitrogen 12 mg/dL (9-16); Calcium 9.4 mg/dL (8.4-10.2); Carbon Dioxide 27 mmol/L (22-29); Chloride 103 mmol/L (96-108); Creatinine Clr Calc Pharmacy 76.1; Estimated Glomerular Filt Rate > 60; Glucose Random 101 mg/dL (60-115); Magnesium 1.8 mg/dL (1.6-2.6); Potassium 3.8 mmol/L (3.3-5.1); Sodium 143 mmol/L (135-145)
[2024-07-05 07:39] LABS: Glucose, Whole Blood 117 mg/dL (60-115)
[2024-07-05] MEDS: metFORMIN HCl 500 MG TABLET PO (08:25)
[2024-07-05] MEDS: Atorvastatin Calcium 80 MG TABLET PO (08:25)
[2024-07-05] MEDS: Cyanocobalamin (Vitamin B-12) 1,000 MCG TABLET 2000 MCG PO (08:25)
[2024-07-05] MEDS: Aspirin Enteric Coated 81 MG TABLET.DR PO (08:25)
[2024-07-05 08:26] VITALS: BP 139/73
[2024-07-05] MEDS: Valsartan 80 MG TABLET PO (08:26)
[2024-07-05] MEDS: Sertraline HCL 50 MG TABLET PO (08:26)
[2024-07-05] MEDS: Gabapentin 100 MG CAPSULE 200 MG PO (08:26)
[2024-07-05] MEDS: Nicotine 21 MG PATCH.TD24 TRANSDERMA (08:27)
[2024-07-05] MEDS: Calcium Carbonate 750 MG TAB.CHEW PO (08:27)
[2024-07-05] MEDS: Acetaminophen 325 MG TABLET 650 MG PO (08:27)
[2024-07-05] MEDS: Psyllium seed 3.7 GM PACKET PO (08:27)
[2024-07-05] MEDS: Enoxaparin Sodium 40 MG/0.4 ML SYRINGE SUBCUT (08:27)
[2024-07-05] MEDS: 0.9 % Sodium Chloride Flush 3 ML SYRINGE IVFLUSH (08:28)
--- NOTE | 2024-07-05 10:31 | MHC.CM.PN ---
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
--- NOTE | 2024-07-05 10:55 | PM.DS ---
DS: Providers Provider Date of Service: 07/05/24 Date of admission: 07/02/24 08:40 Date of discharge: 07/05/24 Primary care physician: CANDIS Boateng DS: Diagnosis Discharge Diagnosis (1) Hypomagnesemia: Status: Acute (2) Acute hypokalemia: Status: Acute (3) Smoking: Status: Acute DS: Summary Hospital Course Hospital Course: History of presenting illness: Date of Service: 07/02/24 Chief Complaint: Worsening diarrhea Patient presents to the emergency room with worsening of chronic diarrhea to the point of abdominal pain. She also notes epigastric burning that has been causing extreme anxiety. She has failed loperamide and presents to ER for treatment. In the ER given a bolus of IV fluids along with Ativan. Labs demonstrated a severe hypokalemia/hypomagnesemia which were repleted. Admission was requested. Hospital course 54-year-old with acute on chronic diarrhea and abdominal burning presents to the ER for failure to respond to outpatient therapies,found to be severely hypokalemic and hypomagnesemic and admitted to medical floor with the following diagnosis. 1. Acute on chronic diarrhea, after admission to medical floor patient had no further episodes of diarrhea, was placed on diet that she is tolerating fairly well she has had no bowel movement since admission, And abdominal and pelvic CT scan was obtained that showed no acute abnormality, she is recommended to hold loperamide and to take high-fiber diet and Metamucil daily since patient has no further abdominal pain nausea, vomiting, and tolerating diet therefore being discharged home with recommendation to drink plenty of fluids, ambulate as tolerated, take Metamucil and high-fiber diet. In regard to electrolytes abnormalities including hypokalemia and hypo magnesemia electrolytes were repleted and normalized. She was noted to have mild acute hypernatremia treated with fluids with normalization of sodium. 2. Type 2 diabetes recommend to follow diabetic diet and continue home medications. 3. Hypertension continue Diovan 80 mg daily 4. Tobacco use disorder continue nicotine patch 21 mg daily, counseling done. Time Attestation Discharge Coordination Time (in mins): 40 Quality: Safe Use of Opioids Does Pt have an Active Cancer Diagnosis on the Problem List?: No Quality: Stroke Does the patient have a stroke diagnosis?: No Physical Exam Vital Signs: Vital Signs: Last Vital Signs Temp 96.8 F 07/05/24 05:50 Pulse 84 07/05/24 05:50 Resp 16 07/05/24 05:50 BP 139/73 07/05/24 08:26 Pulse Ox 96 07/05/24 05:50 O2 Del Method Room Air 07/05/24 05:50 BMI result Body Mass Index 40.0 Const: Other: General awake alert x3, resting comfortably in no acute distress. Moist mucous membranes Neck no JVD. CVS regular rate rhythm, Respiratory lungs clear to auscultation, no respiratory distress, no wheeze, no rhonchi. Gastrointestinal abdomen soft, obese, non tender, bowel sounds audible, no guarding , no rigidity. Extremities no edema. Neuro non focal Skin no rash Appropriate affect DS: Data Data Completed and Pending Labs on day of discharge: Laboratory Results - last 24 hr 07/04/24 07/04/24 07/04/24 11:13 16:14 21:10 Sodium Potassium Chloride Carbon Dioxide Anion Gap BUN Creatinine Estim Creat Clear Calc Estimated GFR POC Glucose 155 H 92 177 H Random Glucose Calcium Magnesium 07/05/24 07/05/24 05:11 07:35 Sodium 143 Potassium 3.8 Chloride 103 Carbon Dioxide 27 Anion Gap 17 BUN 12 Creatinine 0.86 Estim Creat Clear Calc 76.1 Estimated GFR > 60 POC Glucose 117 H Random Glucose 101 Calcium 9.4 D Magnesium 1.8 Discharge Plan Discharge Anticipated Discharge Date/Time: 07/05/24 10:54 Patient Disposition: Home, Self-Care Discharge Diagnosis: Diarrhea Acute hypo magnesemia/ acute hypokalemia Referrals: [facility],[place], REGISTERED TRAVEL NURSE [Primary Care Provider] - 1 Week Discharge Medications: New Metamucil 3.4 gram/5.4 gram powder 1 tbsp PO DAILY Qty: 660 0RF Rx Instructions: mix into at least 8 oz of water or juice before administering nicotine 21 mg/24 hr Patch 24 Hour 21 mg transdermal DAILY Qty: 30 0RF Continued insulin glargine [Lantus U-100 Insulin] 100 unit/mL solution 22 unit subcut BEDTIME gabapentin 100 mg capsule 2 cap PO BID levothyroxine 75 mcg tablet 1 tab PO DAILY@0600 omeprazole 20 mg capsule,delayed release(DR/EC) 1 cap PO DAILY@0630 montelukast 10 mg tablet 1 tab PO BEDTIME sertraline 50 mg tablet 1 tab PO DAILY rosuvastatin 40 mg tablet 1 tab PO DAILY olmesartan 20 mg Tablet 20 mg PO DAILY metformin 500 mg tablet 500 mg PO BIDWM quetiapine 200 mg tablet 200 mg PO BEDTIME cyanocobalamin (vitamin B-12) 1,000 mcg tablet 2,000 mcg PO DAILY aspirin 81 mg tablet,delayed release (DR/EC) 81 mg PO DAILY albuterol sulfate [Ventolin HFA] 90 mcg/actuation HFA aerosol inhaler 2 puff INHALATION Q6H PRN (Reason: Shortness Of Breath Or Wheezing) Trulicity 4.5 mg/0.5 mL pen injector 4.5 mg subcut FR@0900 insulin lispro 100 unit/mL insulin pen 1 sliding scale dose subcut TIDAC (DME) lancets [FreeStyle Lancets] 28 gauge misc See Rx Instructions .ROUTE .MEDSUPPLY Qty: 100 Rx Instructions: As directed (DME) blood-glucose meter [FreeStyle Lite Meter] Kit See Rx Instructions .ROUTE .MEDSUPPLY Qty: 1 Rx Instructions: As directed (DME) FreeStyle Lite Strips Strip See Rx Instructions .ROUTE .MEDSUPPLY Qty: 10 Rx Instructions: As directed Discharge Orders: Discharge Order (Routine); Ordered 07/05/24 Ordered By: Guadalupe Armenta Diet: Diabetic diet Activity on Discharge: As tolerated Stand Alone Forms: Patient Portal Discharge page Print Language: Burmese Activity Restrictions/Additional Instructions: Please follow-up with your primary care physician tomorrow. If you have any worsening or new symptoms, please return to the emergency room or call 911 Care Plan Goals: Diarrhea resolved Take Metamucil daily/add high-fiber diet drink fluids and ambulate as tolerated Health Concerns: Diabetes mellitus follow diabetic diet and continue all home medications as above Plan of Treatment: Outpatient follow-up with primary care physician Assessment: As above Patient Instructions: Chest Pain (ED), Acute Diarrhea (ED), Anxiety (ED)
[2024-07-05 11:22] LABS: Glucose, Whole Blood 150 mg/dL (60-115)
[2024-07-05] MEDS: Sennosides/Docusate Sodium TABLET 1 TAB PO (11:35)
[2024-07-05 12:02] LABS: Thyroid Stimulating Hormone 1.88 uIU/mL (0.32-4.0)
== END 2024-07-05 13:14 | disposition home or self-care (01) | DRG 249 ==
LOC: HO.ED 06:46 → HO.EDOVER 08:06 → HO.IMC 17:19 → HO.S3 07-03 15:17
PROVIDERS: Internal Medicine; Admitting Provider Hospitalist; Emergency Provider Emergency Medicine; PCP Registered Nurse; Visit Provider Hospitalist
DX: K52.9 Noninfective gastroenteritis and colitis, unspecified (principal); E87.0 Hyperosmolality and hypernatremia; E11.9 Type 2 diabetes mellitus without complications; E83.42 Hypomagnesemia; E87.6 Hypokalemia; E66.813 Obesity, class 3; Z68.41 Body mass index [BMI] 40.0-44.9, adult; Z71.3 Dietary counseling and surveillance; K59.00 Constipation, unspecified; F17.210 Nicotine dependence, cigarettes, uncomplicated; Z20.822 Contact with and (suspected) exposure to COVID-19; Z71.6 Tobacco abuse counseling; Z79.4 Long term (current) use of insulin; Z79.82 Long term (current) use of aspirin; Z79.84 Long term (current) use of oral hypoglycemic drugs; Z79.85 Long-term (current) use of injectable non-insulin antidiabetic drugs; Z79.890 Hormone replacement therapy; Z79.899 Other long term (current) drug therapy
CPT/HCPCS: 0241U; 36415; 71045; 74177; 80048; 80053; 82947; 83735; 84443; 84484; 85025; 93005; 94640; 99285; J1650; J3475; J3480; J7120; Q9967

== ENCOUNTER → 2024-07-02 02:03 | Outpatient (BNV) | payer MEDICAID, SELFPAY | PROVIDERS: Admitting Provider Hospitalist; Emergency Provider Emergency Medicine; Visit Provider Internal Medicine Cardiovascular Disease | DX: R94.31 Abnormal electrocardiogram [ECG] [EKG] (principal) | CPT/HCPCS: 93010 ==

== ENCOUNTER → 2024-07-02 08:40 | Outpatient (BNV) | payer MEDICAID, SELFPAY | PROVIDERS: Admitting Provider Hospitalist; Emergency Provider Emergency Medicine; Visit Provider Hospitalist | DX: E83.42 Hypomagnesemia (principal); E87.6 Hypokalemia; F17.200 Nicotine dependence, unspecified, uncomplicated | CPT/HCPCS: 99223; 99232; 99239 ==

== ENCOUNTER 2024-07-11 15:27 | Outpatient (REF) | payer MEDICAID, SELFPAY ==
[2024-07-11 16:42] LABS: Alanine Aminotransferase 15 U/L (0-31); Albumin Level 4.2 g/dL (3.5-5.0); Alkaline Phosphatase 94 U/L (39-117); Anion Gap 12 (12-20); Aspartate Amino Transferase 20 U/L (5-31); Bilirubin Direct 0.1 mg/dL (0.0-0.5); Bilirubin Total 0.3 mg/dL (0.0-1.0); Blood Urea Nitrogen 13 mg/dL (9-16); Calcium 8.9 mg/dL (8.4-10.2); Carbon Dioxide 28 mmol/L (22-29); Chloride 105 mmol/L (96-108); Cholesterol 123 mg/dL (<200); Estimated Glomerular Filt Rate 58; Glucose Random 62 mg/dL (60-115); HDL Cholesterol 41 mg/dL (>40); LDL Cholesterol Calculated 46 mg/dL (<100); Potassium 4.8 mmol/L (3.3-5.1); Sodium 140 mmol/L (135-145); Triglycerides 184 mg/dL (<150)
[2024-07-11 16:46] LABS: Creatinine Urine 38.97 mg/dL; Microalbum/Creatinine Ratio Ur 82.1 ug/mg cr (<30)
[2024-07-11 17:37] LABS: Vitamin B12 > 2000 pg/mL (200-900)
== END 2024-07-11 15:28 | disposition home or self-care (01) ==
LOC: HO.HHCL 15:27
PROVIDERS: Visit Provider Registered Nurse
DX: E11.65 Type 2 diabetes mellitus with hyperglycemia (principal); I10 Essential (primary) hypertension; Z79.4 Long term (current) use of insulin
CPT/HCPCS: 36415; 80048; 80061; 80076; 82043; 82570; 82607

== ENCOUNTER 2024-09-23 15:06 | Outpatient (REF) | payer MEDICAID, SELFPAY | END 2024-09-23 15:07 | disposition home or self-care (01) | LOC: HO.HHCX 15:06 | PROVIDERS: Visit Provider Family Medicine | DX: M75.02 Adhesive capsulitis of left shoulder (principal) | CPT/HCPCS: 73030 ==

== ENCOUNTER → 2024-09-23 15:06 | Outpatient (BNV) | payer MEDICAID, SELFPAY | PROVIDERS: Visit Provider Radiology Diagnostic Radiology | DX: M75.02 Adhesive capsulitis of left shoulder (principal) | CPT/HCPCS: 73030 ==

== ENCOUNTER 2024-10-24 14:25 | Outpatient (REF) | payer MEDICAID, SELFPAY ==
--- OUTSIDE RECORDS SUMMARY | 2024-10-24 16:28 | XMS_ITS | Encounter Summary ---
Author Organization [employer] Address [address] [place] [address] Care Team Providers Care Production Support Analyst Name Role Phone Marilu Reynoso FILING WRITER Primary Care Provider [phone] Raissa To PharmD Unavailable [phone] Encounter Details Date Type Department Care Team (Late st Contact Info) Description 07/14/2023 Abstract [facility] MEDICINE [address] [place], [place] [phone] Shruthi Esparza Social History Tobacco Use Types Packs/Day Years Used Date Smoking Tobacco: Every Day Cigarettes Passive Smoke Exposure: Never Smokeless Tobacco: Never Alcohol Use Standard Drinks/Week Comments Never 0 (1 standard drink = 0.6 oz pur e alcohol) PHQ-2 Answer Date Recorded Patient Health Questionnaire-2 Score 2 04/01/2023 Depression Answer Date Recorded Patient Health Questionnaire-9 Score 16 03/03/2023 Housing Stability Answer Date Recorded What is your housing situation today? I have anmol reid 06/03/[address] you li ve. Do you have problems with any of the following? None of the above 06/03/2023 Food Insecurity Answer Date Recorded Within the past 12 months, y ou worried that your food would run out before you got money to buy more: Never True 06/03/2023 Within the past 12 months,th e food you bought just didn't last and you didn't have enough money to get more: Never True Transportation Answer Date Recorded In the past 12 months, has l ack of transportation kept you from medical appts, meetings, work or from getting things needed for daily living? No 06/03/2023 Utilities Answer Date Recorded In the past 12 months, has t he electric, gas, oil or water company threatened to shut off services in your home? No 06/03/2023 Depression Answer Date Recorded Patient Health Questionnaire-2 Score 2 04/01/2023 Comments Unknown Sex and Gender Information Value Date Recorded Sex Assigned at Female 06/16/2022 10:14 AM EDT Legal Sex Female 10:14 AM EDT Gender Identity Female 06/16/2022 10:14 AM EDT Sexual Orientation Straight 06/16/2022 10 :14 AM EDT documented as of this encounter Plan of Treatment Not on file documented as of this encounter Visit Diagnoses Not on filedocumented in this encounter Additional Health Concerns Assessment Noted Time PHQ-9 Depression Total Score: 16 023 1:53 PM EDT documented as of this encounter Care Teams Production Support Analyst Relationship Specialty Start Date End Date Marilu Reynoso FNP [address] [place] [address] PCP - General Family Medicine 01/02/22 Raissa To PharmD [address] [place] [address] Pharmacist Internal Medicine 06/17/24 Lisset Varenr Machine Stripper 04/08/24 07/08/24 documented as of this encounter
--- OUTSIDE RECORDS SUMMARY | 2024-10-24 16:28 | XMS_ITS | Encounter Summary ---
Author Organization [employer] Address [address] [place] [address] Care Team Providers Care Manager Of Business Name Role Phone Marilu Reynoso EARLY [employer] S[employer] PSYCHOLOGIST Primary Care Provider [phone] Raissa To PharmD Unavailable [phone] Encounter Details Date Type Department Care Team (Latest Contact Info) Description 10/24/2024 Travel Social History Tobacco Use Types Packs/Day Years Used Date Smoking Tobacco: Every Day Cigarettes Passive Smoke Exposure: Never Smokeless Tobacco: Never Alcohol Use Standard Drinks/Week Comments Never 0 (1 standard drink = 0.6 oz pur e alcohol) Depression Answer Date Recorded Patient Health Questionnaire-9 Score 9 07/18/2024 Patient Health Questionnaire-9 Score 9 07/18/2024 Last PHQ-9: Questionnaire Data Not on file 1 09/18/2023 Housing Stability Answer Date Recorded What is your housing situation today? I have anmol reid 03/18/[address] you li ve. Do you have problems with any of the following? None of the above 03/18/2024 Food Insecurity Answer Date Recorded Within the past 12 months, y ou worried that your food would run out before you got money to buy more: Never True 03/18/2024 Within the past 12 months,th e food you bought just didn't last and you didn't have enough money to get more: Never True 09/2023 Transportation Answer Date Recorded In the past 12 months, has l ack of transportation kept you from medical appts, meetings, work or from getting things needed for daily living? Yes, it has kept me from medical appointments or getting medications. 03/18/2024 Utilities Answer Date Recorded In the past 12 months, has t he electric, gas, oil or water company threatened to shut off services in your home? No 03/18/2024 Depression Answer Date Recorded Patient Health Questionnaire-2 Score 2 07/18/2024 Internet Access Answer Date Recorded Internet Access Q1 Yes 04/18/2024 Internet Access Q2 Not on file 04/18/2024 Comments Unknown Sex and Gender Information Value [...] Assessment Noted Time PHQ-9 Depression Total Score: 9 07/18/20 24 1:40 PM EST documented as of this encounter Care Teams Manager Of Business Relationship Specialty Start Date End Date Marilu Reynoso FNP [address] [place] [address] PCP - General Family Medicine 01/02/22 Raissa To, Rafia [address] [place] [id number] Pharmacist Internal Medicine 06/17/24 documented as of this encounter
--- OUTSIDE RECORDS SUMMARY | 2024-10-24 16:28 | XMS_ITS | Encounter Summary ---
Author Organization [employer] Address [address] [place] [address] Care Team Providers Care Crusher Name Role Phone Marilu Reynoso RESPIRATORY THERAPY INSTRUCTOR Primary Care Provider [phone] Raissa To PharmD Unavailable [phone] Encounter Details Date Type Department Care Team (Late st Contact Info) Description 11/25/2023 Orders Only [facility] MEDICINE [address] [place] [address] Provider, MD Yessenia Social History Tobacco Use Types Packs/Day Years Used Date Smoking Tobacco: Every Day Cigarettes Passive Smoke Exposure: Never Smokeless Tobacco: Never Alcohol Use Standard Drinks/Week Comments Never 0 (1 standard drink = 0.6 oz pur e alcohol) Depression Answer Date Recorded Patient Health Questionnaire-9 Score 16 07/20/2023 Patient Health Questionnaire-9 Score 16 07/20/2023 Last PHQ-9: Questionnaire Data Not on file 1 09/20/2022 Housing Stability Answer Date Recorded What is [...] Answer Date Recorded Patient Health Questionnaire-2 Score 4 07/20/2023 Comments Unknown Sex and Gender Information Value Date Recorded Sex Assigned at Female 06/16/2022 10:14 AM EDT Legal Sex Female 10:14 AM EDT Gender Identity Female 06/16/2022 10:14 AM EDT Sexual Orientation Straight 06/16/2022 10 :14 AM EDT documented as of this encounter Plan of Treatment Not on file documented as of this encounter Procedures Procedure Name Priority Date/Time Associated Diagnosis Comments HM COLONOSCOPY Routine 06/28/2019 8:54 AM EST documented in this encounter Results * Hm Colonoscopy (06/28/2019 8:54 AM EST) Historical Provider HEALTH MAINTENANCE Final Result documented in this encounter Visit Diagnoses Not on filedocumented in this encounter Additional Health Concerns Assessment Noted Time PHQ-9 Depression Total Score: 16 023 12:28 PM EST documented as of this encounter Care Teams Crusher Relationship Specialty Start Date End Date Marilu Reynoso FNP [address] [place] [address] PCP - General Family Medicine 01/02/22 Raissa To PharmD [address] [place] [id number] Pharmacist Internal Medicine 06/17/24 Lisset Varner Load Dropper 04/08/24 07/08/24 documented as of this encounter
--- OUTSIDE RECORDS SUMMARY | 2024-10-24 16:28 | XMS_ITS | Encounter Summary ---
Author Organization [employer] Address [address] [place] [address] Care Team Providers Care Polishing Machine Tender Name Role Phone [place] Primary Care Provider [phone] Raissa To PharmD Unavailable [phone] Encounter Details Date Type Department Care Team (Late st Contact Info) Description 06/10/2023 Abstract [facility] MEDICINE [address] [place], [place] [phone] [place]Marilu samayoa, [facility] [address] [place], [place] [phone] Social History Tobacco Use Types Packs/Day Years [...] your housing situation today? I have anmol jeanette 06/03/[address] you li [...] documented as of this encounter Care Teams Polishing Machine Tender Relationship Specialty Start Date End Date Marilu Reynoso FNP [address] [place] [address] PCP - General Family Medicine 01/02/22 Raissa To PharmD [address] [place] [address] Pharmacist Internal Medicine 06/17/24 Lisset Varner Operations Processor 04/08/24 07/08/24 documented as of this encounter
--- OUTSIDE RECORDS SUMMARY | 2024-10-24 16:28 | XMS_ITS | Encounter Summary ---
Author Organization [employer] Address [address] [place] [address] Care Team Providers Care Cushion Maker Hand Name Role Phone [place] [facility] Primary Care Provider [phone] Raissa To PharmD Unavailable [phone] Reason for Visit * Reason Comments Med Refill Encounter Details Date Type Department Care Team (Late st Contact Info) Description 01/20/2024 Refill [facility] MED[facility]INE [address] [place], [place] [phone] [facility] [address] [place], [place] [phone] Thoracic back pain, unspecified back pain laterality, unspecified chronicity Social History Tobacco Use Types Packs/Day Years [...] documented as of this encounter Visit Diagnoses Diagnosis Thoracic back pain, unspecified back pain laterality, unspecified chronicity documented in this encounter Additional Health Concerns Assessment Noted Time PHQ-9 Depression Total Score: 16 023 12:28 PM EST documented as of this encounter Care Teams Cushion Maker Hand Relationship Specialty Start Date End Date Marilu Reynoso FNP [address] [place] [address] PCP - General Family Medicine 01/02/22 Raissa To PharmD [address] [place] [address] Pharmacist Internal Medicine 06/17/24 Lisset Varner Owner/Operator 04/08/24 07/08/24 documented as of this encounter
--- OUTSIDE RECORDS SUMMARY | 2024-10-24 16:28 | XMS_ITS | Encounter Summary ---
Author Organization [employer] Address [address] [place] [address] Care Team Providers Care Cobbler Mckay Name Role Phone Marilu Reynoso AN EMPLOYEE SPONSOR OR ADVOCATE AND Primary Care Provider [phone] Raissa To PharmD Unavailable [phone] Reason for Visit * Reason Onset Date Comments case back from lab?? 03/23/2024 Encounter Details Date Type Department Care Team (Late st Contact Info) Description 03/23/2024 Telephone [facility] ADULT DENTAL [address] [place], [place] [phone] Luiz Moody DDS [address] [place], [place] [phone] case back from lab?? Social History Tobacco Use Types Packs/Day Years Used Date Smoking Tobacco: Every Day Cigarettes Passive Smoke Exposure: Never Smokeless Tobacco: Never Alcohol Use Standard Drinks/Week Comments Never 0 (1 standard drink = 0.6 oz pur e alcohol) Depression Answer Date Recorded Patient Health Questionnaire-9 Score 24 02/17/2024 Patient Health Questionnaire-9 Score 24 02/17/2024 Last PHQ-9: Questionnaire Data Not on file 0 02/17/2024 Housing Stability Answer Date Recorded What is [...] the past 12 months, has t he [place], gas, oil or water [employer] threatened to shut off services in your home? No 03/18/2024 Depression Answer Date Recorded Patient Health Questionnaire-2 Score 6 02/17/2024 Comments Unknown Sex and Gender Information Value Date Recorded Sex Assigned at Female 06/16/2022 10:14 AM EDT Legal Sex Female 10:14 AM EDT Gender Identity Female 06/16/2022 10:14 AM EDT Sexual Orientation Straight 06/16/2022 10 :14 AM EDT documented as of this encounter Miscellaneous Notes * Telephone Encounter - Liliana Guy - 03/23/2024 10:57 AM EDT Message for Dr. Moody Patient is calling in to confirm if case is back from lab and would like to be scheduled . Pls reach out to patient DR documented in this encounter Plan of Treatment Not on file documented as of this encounter Visit Diagnoses Not on filedocumented in this encounter Additional Health Concerns Assessment Noted Time PHQ-9 Depression Total Score: 24 024 11:18 AM EDT documented as of this encounter Care Teams Cobbler Mckay Relationship Specialty Start Date End Date Marilu Reynoso FNP [address] [place] [address] PCP - General Family Medicine 01/02/22 Raissa To PharmD [address] [place] [address] Pharmacist Internal Medicine 06/17/24 Lisset Varner Percussion Instrument Repairer 04/08/24 07/08/24 documented as of this encounter
--- OUTSIDE RECORDS SUMMARY | 2024-10-24 16:28 | XMS_ITS | Encounter Summary ---
Author Organization [employer] Address [address] [place] [address] Care Team Providers Care Frozen Food Selector Name Role Phone [place] [facility] Primary Care Provider [phone] Raissa To PharmD Unavailable [phone] Reason for Visit * Reason Comments Med Refill Encounter Details Date Type Department Care Team ([facility] st Contact Info) Description 08/13/2024 Refill [facility] [address] [place], [place] [phone] [facility] [address] [place] [address] Thoracic back pain, unspecified back pain laterality, unspecified chronicity; Mood disorder (CMS/HCC) Social History Tobacco Use Types Packs/Day Years [...] pain, unspecified back pain laterality, unspecified chronicity Mood disorder (CMS/HCC) Unspecified episodic mood disorder documented in this encounter Additional Health Concerns Assessment Noted Time PHQ-9 Depression Total Score: 9 07/18/20 24 1:40 PM EST documented as of this encounter Care Teams Frozen Food Selector Relationship Specialty Start Date End Date Marilu Reynoso FNP [address] [place] [address] PCP - General Family Medicine 01/02/22 Raissa To PharmD [address] [place] [address] Pharmacist Internal Medicine 06/17/24 documented as of this encounter
--- OUTSIDE RECORDS SUMMARY | 2024-10-24 16:28 | XMS_ITS | Encounter Summary ---
Author Organization [employer] Address [address] [place] [address] Care Team Providers Care Candle Maker Name Role Phone [place], [facility] Primary Care Provider Raissa To PharmD Unavailable [phone] Reason for Visit * Reason Onset Date Comments Results 09/11/2023 Encounter Details Date Type Department Care Team (Late st Contact Info) Description 09/11/2023 Telephone [facility] MEDICINE [address] [place], [place] [phone] [facility] [address] [place], [place] [phone] Results Social History Tobacco Use Types Packs/Day Years [...] encounter Miscellaneous Notes * Telephone Encounter - Ange Redding - 09/11/2023 2:21 PM EST Tc from pt requesting a call back in regards results on Shoulder XR documented in this encounter Plan of Treatment Not on file documented as of this encounter Visit Diagnoses Not on filedocumented in this encounter Additional Health Concerns Assessment Noted Time PHQ-9 Depression Total Score: 16 023 12:28 PM EST documented as of this encounter Care Teams Candle Maker Relationship Specialty Start Date End Date Marilu Reynoso FNP [address] [place] [address] PCP - General Family Medicine 01/02/22 Raissa To PharmD [address] [place] [address] Pharmacist Internal Medicine 06/17/24 Lisset Varner Wool Sorter 04/08/24 07/08/24 documented as of this encounter
--- OUTSIDE RECORDS SUMMARY | 2024-10-24 16:28 | XMS_ITS | Encounter Summary ---
Author Organization [employer] Address [address] [place] [address] Care Team Providers Care Sample Supervisor Name Role Phone [place], Marilu [facility] Primary Care Provider [phone] Raissa To PharmD Unavailable [phone] Reason for Visit * Reason Onset Date Comments Appointment Request 06/29/2024 Encounter Details Date Type Department Care Team (Late st Contact Info) Description 06/29/2024 Telephone [facility] MEDICINE [address] [place], [place] [phone] [place] Marilu [facility] [address] [place], [place] [phone] Appointment Request Social History Tobacco Use Types Packs/Day Years [...] Recorded Patient Health Questionnaire-2 Score 6 02/17/2024 Internet Access Answer Date Recorded Internet Access [...] encounter Miscellaneous Notes * Telephone Encounter - Tano Vergara - 06/29/2024 3:19 PM EST TC from pt missed today visit with Raissa and would like to reschedule documented in this encounter Plan of Treatment Not on file documented as of this encounter Visit Diagnoses Not on filedocumented in this encounter Additional Health Concerns Assessment Noted Time PHQ-9 Depression Total Score: 24 024 11:18 AM EDT documented as of this encounter Care Teams Sample Supervisor Relationship Specialty Start Date End Date Marilu Reynoso FNP [address] [place] [address] PCP - General Family Medicine 01/02/22 Raissa To PharmD [address] [place] [address] Pharmacist Internal Medicine 06/17/24 Lisset Varner Management Consulting 04/08/24 07/08/24 documented as of this encounter
--- OUTSIDE RECORDS SUMMARY | 2024-10-24 16:28 | XMS_ITS | Encounter Summary ---
Author Organization [employer] Address [address] [place] [address] Care Team Providers Care Crate Builder Name Role Phone Marilu Reynoso CANE PACKER Primary Care Provider [phone] Raissa To PharmD Unavailable [phone] Encounter Details Date Type Department Care Team (Late st Contact Info) Description 10/21/2024 Telephone [facility] [address] [place], [place] [phone] Edil, Ellyn, OD [address] [place] [address] Social History Tobacco Use Types Packs/Day Years [...] documented as of this encounter Care Teams Crate Builder Relationship Specialty Start Date End Date Marilu Reynoso FNP [address] [place] [address] PCP - General Family Medicine 01/02/22 Raissa To PharmD [address] [place] [address] Pharmacist Internal Medicine 06/17/24 documented as of this encounter
--- OUTSIDE RECORDS SUMMARY | 2024-10-24 16:28 | XMS_ITS | Encounter Summary ---
Author Organization [employer] [facility] Address [address] [place] [address] [address] [place] [address] Care Team Providers Care Table Setter Name Role Phone Marilu Reynoso CLINICAL TEAM LEAD Primary Care Provider [phone] Raissa To PharmD Unavailable [phone] Reason for Referral * Consultation (Routine) - Authorized Specialty Diagnoses / Procedures Referred By Sahne hubbard Referred To Contact Pharmacy Diagnoses Type 2 diabetes mellitus with hyperglycemia, with long-term current use of insulin (CMS/HCC) Genesis Peacock MD [address] [place] [address] Phone: tel: fax: Referral ID Status Reason Start Date Expiration Date Visits Requested Visits Authorized [id number] Authorized Consult and Treat 06/19/2024 06/19/2025 6 6 Encounter Details Date Type Department Care Team (Late st Contact Info) Description 06/19/2024 Orders Only [facility] MEDICINE [address] [place] [address] Genesis Peacock MD [address] [place] [address] Type 2 diabetes mellitus with hyperglycemia, with long-term current use of insulin (CMS/HCC) (Primary Dx) Social History Tobacco Use Types Packs/Day Years [...] as of this encounter Plan of Treatment Scheduled Referrals Name Type Priority Associated Diagnoses Orde r Schedule Referral to Pharmacy CDTM Outpatient Referral Routine Type 2 diabetes mellitus with hyperglycemia, with long-term current use of insulin (CMS/HCC) Ordered: 06/19/2024 documented as of this encounter Visit Diagnoses Diagnosis Type 2 diabetes mellitus with hyperglycemia, with long-term current use of insulin (CMS/HCC)- Primary documented in this encounter Additional Health Concerns Assessment Noted Time PHQ-9 Depression Total Score: 24 024 11:18 AM EDT documented as of this encounter Care Teams Table Setter Relationship Specialty Start Date End Date [place] CANDIS Michel [address] [place] [address] PCP - General Family Medicine 01/02/22 Raissa To, Rafia [address] [place] [address] Pharmacist Internal Medicine 06/17/24 Lisset Varner Job Boss 04/08/24 07/08/24 documented as of this encounter
--- OUTSIDE RECORDS SUMMARY | 2024-10-24 16:28 | XMS_ITS | Encounter Summary ---
Author Organization [employer] [facility] Address [address] [facility] 7t [place] [address] Care Team Providers Care Works Manager Name Role Phone Marilu Reynoso ENVIRONMENTAL REMEDIATION CONSULTANT Primary Care Provider [phone] Raissa To PharmD Unavailable [phone] Reason for Visit * Reason Onset Date Comments Appointment 10/21/2022 Encounter Details Date Type Department Care Team (Late st Contact Info) Description 10/21/2022 Telephone [facility] ADULT DENTAL [address] [place], [place] [phone] Luiz Moody DDS [address] [place], [place] [phone] Appointment Social History Tobacco Use Types Packs/Day Years Used Date Smoking Tobacco: Never Passive Smoke Exposure: Never Smokeless Tobacco: Never Alcohol Use Standard Drinks/Week Comments Never 0 (1 standard drink = 0.6 oz pur e alcohol) Comments Unknown Sex and Gender Information Value Date Recorded Sex Assigned at Female 06/16/2022 10:14 AM EDT Legal Sex Female 10:14 AM EDT Gender Identity Female 06/16/2022 10:14 AM EDT Sexual Orientation Straight 06/16/2022 10 :14 AM EDT COVID-19 Exposure Response Date Recorded In the last 10 days, have avinash hernandez been in contact with someone who was confirmed or suspected to have Coronavirus/COVID-19? No / Unsure 10/23/2022 12:48 PM EST documented as of this encounter Miscellaneous Notes * Telephone Encounter - Liliana Guy - 10/22/2022 2:09 PM EST Patient accepted to come in tomorrow for 1pm * Telephone Encounter - Liliana Guy - 10/22/2022 10:38 AM EST Can patient be scheduled for delivery of case. Dr. Moody confirmed case in office. No room on PAR side for scheduling * Telephone Encounter - Liliana Guy - 10/21/2022 2:07 PM EST Patient is calling in to confirm if case is back from the lab. documented in this encounter Plan of Treatment Not on file documented as of this encounter Visit Diagnoses Not on filedocumented in this encounter Care Teams Works Manager Relationship Specialty Start Date End Date [facility] [address] [place] [address] PCP - General Family Medicine 01/02/22 Raissa To PharmD [address] [place] [address] Pharmacist Internal Medicine 06/17/24 Lisset Varner Manager Body 04/08/24 07/08/24 documented as of this encounter
--- OUTSIDE RECORDS SUMMARY | 2024-10-24 16:28 | XMS_ITS | Encounter Summary ---
Author Organization [employer] Address [address] [facility] 7t [place] [address] Care Team Providers Care Plastic Design Applier Name Role Phone [place], [facility] Primary Care Provider [phone] Raissa To PharmD Unavailable [phone] Encounter Details Date Type Department Care Team (Late st Contact Info) Description 10/18/2024 Telephone [facility] MEDICINE [address] [place], [place] [phone] AngelesMarilu samayoa, [facility] [address] [place], [place] [phone] Social History Tobacco Use Types Packs/Day Years [...] encounter Miscellaneous Notes * Telephone Encounter - Marii Funes - 10/18/2024 2:34 PM EST Pharmacy [facility] attempted outreach call on 10/18/24 for CDTM - Diabetes appointment; however, unable to reach patient. LVM for patient to contact Marii Funes at [phone]. documented in this encounter Plan of Treatment Not on file documented as of this encounter Visit Diagnoses Not on filedocumented in this encounter Additional Health Concerns Assessment Noted Time PHQ-9 Depression Total Score: 9 07/18/20 24 1:40 PM EST documented as of this encounter Care Teams Plastic Design Applier Relationship Specialty Start Date End Date Marilu Reynoso FNP [address] [place] [address] PCP - General Family Medicine 01/02/22 Raissa To PharmD [address] [place] [address] Pharmacist Internal Medicine 06/17/24 documented as of this encounter
--- OUTSIDE RECORDS SUMMARY | 2024-10-24 16:28 | XMS_ITS | Clinical Summary ---
Author Organization [employer] Address [address] [place] [address] Care Team Providers Care Culture Room Worker Name Role Phone Marilu Reynoso HAND POLISHER Primary Care Provider Raissa To PharmD Unavailable Allergies Active Allergy Reactions Criticality Noted Date Comments Lisinopril Palpitations Low 02/24/2020 Other reaction(s): Tachycardia Penicillin V Rash Low 08/14/2010 Penicillins Rash Low 07/05/2022 Sulfamethoxazole Unknown 08/14/2010 Other reaction(s): unspecified Trimethoprim Unknown 08/14/2010 Other reaction(s): unspecified Medications * This document contains information received from the source organization and may not represent a complete record from that organization. traMADol (Ultram) 50 MG tablet Take 1 tablet by mouth every 6 (six) hours. Active acetaminophen (Tylenol) 500 MG tablet Take 2 tablets by mouth in the morning and 2 tablets at noon and 2 tablets in the evening and 2 tablets before bedtime. 04/02/20 20 Active nicotine polacrilex (Nicorette) 4 MG gum chew 1 piece of gum by oral route every 1-2 hours as needed for weeks 1-6, then 1 piece every 2-4 hours weeks 7-9, then 1 piece every 4-8 hours weeks 10-. 01/07/20 22 Active ibuprofen 400 MG tablet Take 400 mg by mouth every 6 (six) hours. 05/20/20 22 Active Methylcobalamin 1 MG chewable tablet Chew 2 tablets in the morning. 05/14/20 22 Active Spacer/Aero-Hold ing Chambers device Use it every 4-6 hrs Active Diclofenac Sodium 1 % gel Apply topically. Apply 2 gram by topical route 3 times every day to the affected areas as needed for pain 06/25/20 22 Active tiotropium (Spiriva HandiHaler) 18 MCG inhalation capsuleIndicatio ns:Severe persistent asthma without complication Place 1 capsule (18 mcg) into inhaler and inhale in the morning. Place into inhaler and inhale. 30 capsule 11 03/03/20 23 Active Blood Pressure kitIndications:E ssential hypertension Check bp 1-2 times per day. 1 kit 04/01/20 23 Active albuterol (Ventolin HFA) 108 (90 Base) MCG/ACT inhalerIndicatio ns:Severe persistent asthma without complication INHALE 2 PUFFS BY MOUTH EVERY 4 TO 6 HOURS NEEDED 18 g 3 06/10/20 23 Active albuterol (2.5 MG/3ML) 0.083% nebulizer solutionIndicati ons:Severe persistent asthma without complication INHALE 3 ML NEBULIZER EVERY 4 HOURS NEEDED FOR WHEEZING 90 mL 3 06/24/20 23 Active Trelegy Ellipta 100-62.5-25 MCG/ACT aerosol powderIndication s:Severe persistent asthma, unspecified whether complicated INHALE 1 PUFF BY MOUTH EVERY DAY AT THE SAME TIME IN THE MORNING 60 each 2 10/30/19 24 Active omeprazole (PriLOSEC) [address] capsuleIndicatio ns:Dyspepsia TAKE 1 CAPSULE BY MOUTH EVERY MORNING BEFORE A MEAL 90 capsule 3 01/01/20 24 Active sertraline (Zoloft) 50 MG tabletIndication s:Chronic major depressive disorder, single episode TAKE 1 TABLET BY MOUTH EVERY MORNING 90 tablet 3 01/01/20 24 Active D3 Super Strength 50 MCG (1999 UT) capsule TAKE 1 CAPSULE BY MOUTH EVERY MORNING 90 capsule 3 01/01/20 24 Active rosuvastatin (Crestor) 40 MG tablet TAKE 1 TABLET BY MOUTH EVERY MORNING 90 tablet 3 01/01/20 24 Active montelukast (Singulair) 10 MG tablet TAKE 1 TABLET BY MOUTH EVERY EVENING DIRECTED 90 tablet 3 01/01/20 24 Active aspirin (Aspirin Adult Low Strength) 81 MG EC tabletIndication s:Essential hypertension TAKE 1 TABLET BY MOUTH EVERY MORNING 90 tablet 3 01/01/20 24 Active fluticasone (Flonase) 50 MCG/ACT nasal spray INSTILL 2 SPRAYS IN EACH NOSTRIL ONCE DAILY IN THE MORNING SHAKE GENTLY 48 g 01/04/20 24 Active Alcohol Swabs (Alcohol Prep) 70 % padsIndications: Type 2 diabetes mellitus with hyperglycemia, with long-term current use of insulin (CMS/FORMERLY [facility]) USE TO CLEAN SKIN BEFORE INJECTION DIRECTED 100 each 02/19/20 24 Active insulin lispro (HumaLOG KWIKPEN) 100 UNIT/ML injectionIndicat ions:Type 2 diabetes mellitus with hyperglycemia, with long-term current use of insulin (CMS/FORMERLY [facility]) inject by subcutaneous route per the following sliding scale before meals; do not administer if you don't eat. Sliding scale: 131-180=6units, 181-240=8 units, 241-300=10 units, 301-350=12 units, >350=14 units 100 mL 02/19/20 24 Active glucose blood (FREESTYLE LITE) test stripIndications :Type 2 diabetes mellitus with hyperglycemia, with long-term current use of insulin (CMS/HCC) USE DIRECTED TO TEST BLOOD SUGAR FOUR TIMES DAILY 100 strip 03/07/20 24 Active insulin pen needle (VeohtiGProdigy Gamerd SafePack Pen Needle) 32G x 4 mm miscIndications: Type 2 diabetes mellitus with hyperglycemia, with long-term current use of insulin (CMS/HCC) USE DIRECTED WITH INSULIN 100 each 03/07/20 24 Active TRUEplus Lancets 33G miscIndications: Type 2 diabetes mellitus with hyperglycemia, with long-term current use of insulin ([facility]) USE DIRECTED TO TEST BLOOD SUGAR FOUR TIMES DAILY 100 each 03/07/20 24 Active levothyroxine (Synthroid, Levoxyl) 75 MCG tablet TAKE 1 TABLET BY MOUTH EVERY MORNING 90 tablet 3 03/25/20 24 Active olmesartan (BENIcar) 20 MG tablet TAKE 1 TABLET BY MOUTH EVERY MORNING 90 tablet 3 03/25/20 24 Active Continuous Glucose Automatic Corn Grinder Operator (FreeStyle Stevo 2 [place]) deviceIndication s:Type 2 diabetes mellitus with hyperglycemia, with long-term current use of insulin (CMS/[facility]ER[facility]) For monitoring interstitial glucose every 8 hours and as needed 1 each 06/17/20 24 Active Continuous Glucose Sensor (FreeStyle Stevo 2 Sensor) miscIndications: Type 2 diabetes mellitus with hyperglycemia, with long-term current use of insulin ([facility]) Test blood sugar every 8 hours and as needed 2 each 3 06/17/20 24 Active glucose blood (FreeStyle Precision Dylan Test) test stripIndications :Type 2 diabetes mellitus with hyperglycemia, with long-term current use of insulin ([facility]) Test blood sugar every 8 hours and as needed 100 each 11 06/17/20 24 025 Active diphenoxylate-at ropine (Lomotil) 2.5-0.025 MG tablet TAKE 1 TABLET ORALLY 2 TIMES DAILY NEEDED FOR DIARRHEA 07/07/20 Active Trulicity 4.5 MG/0.5ML solution auto-injector INJECT ONE PEN (= 4.5MG) SUBCUTANEOUSLY ONCE A WEEK DIRECTED 06/21/20 24 Active nicotine (Nicoderm, Step 1) 21 MG/24HR patch APPLY 1 PATCH TRANSDERMALLY DAILY 07/07/20 24 Active insulin glargine (Lantus SoloStar) 100 UNIT/ML penIndications:T ype 2 diabetes mellitus with hyperglycemia, with long-term current use of insulin ([facility]) Inject subcutaneously 24 units once daily 07/12/20 24 Active fexofenadine (Sheri) 180 MG tabletIndication s:Allergic rhinitis, unspecified seasonality, unspecified trigger Take 1 tablet (180 mg) by mouth Once per day. 30 tablet 07/18/20 24 025 Active empagliflozin (Jardiance) 10 MGIndications:Ty pe 2 diabetes mellitus with diabetic microalbuminuria , with long-term current use of insulin ([facility]) Take 1 tablet (10 mg) by mouth Once per day. 30 tablet 07/18/20 24 025 Active predniSONE (Deltasone) 20 MG tabletIndication s:Adhesive capsulitis of left shoulder 2 tabs po daily for 5 days 10 tablet 09/23/19 25 Active QUEtiapine (SEROquel) 200 MG tabletIndication s:Mood disorder ([facility]) TAKE 1 TABLET BY MOUTH AT BEDTIME 30 tablet 09/23/19 25 Active gabapentin (Neurontin) 100 MG capsuleIndicatio ns:Thoracic back pain, unspecified back pain laterality, unspecified chronicity TAKE 2 CAPSULES BY MOUTH THREE TIMES DAILY IN THE MORNING, AT NOON AND AT BEDTIME 180 capsule 09/23/19 25 Active Alcohol Swabs (Alcohol Prep) padsIndications: Type 2 diabetes mellitus with diabetic microalbuminuria , with long-term current use of insulin (CMS/HCC) Use one pad each to prep skin prior to injection as directed 100 each 10/25/19 25 Active Lancets 33G miscIndications: Type 2 diabetes mellitus with diabetic microalbuminuria , with long-term current use of insulin (CMS/HCC) Use as directed to check blood sugar four times daily 100 each 3 10/25/19 25 Active Blood Glucose Monitoring Suppl (GNP Easy Touch Glucose Meter) deviceIndication s:Type 2 diabetes mellitus with diabetic microalbuminuria , with long-term current use of insulin (CMS/HCC) Use as directed to check blood sugar four times daily 1 each 10/25/19 25 Active glucose blood test stripIndications :Type 2 diabetes mellitus with diabetic microalbuminuria , with long-term current use of insulin (CMS/HCC) Use as directed to check blood sugar four times daily 100 each 10/25/19 25 Active insulin pen needle 32G x 4 mm miscIndications: Type 2 diabetes mellitus with diabetic microalbuminuria , with long-term current use of insulin (CMS/HCC) Use as instructed to inject insulin 4 times daily 120 each 10/25/19 25 026 Active Continuous Glucose Automatic Corn Grinder Operator (FreeStyle Stevo 3 [place]) deviceIndication s:Type 2 diabetes mellitus with diabetic microalbuminuria , with long-term current use of insulin (CMS/HCC) 1 each Once per day. Use as directed for CGM 1 each 10/25/19 25 Active Continuous Glucose Sensor (FreeStyle Stevo 3 Plus Sensor) miscIndications: Type 2 diabetes mellitus with diabetic microalbuminuria , with long-term current use of insulin (CMS/HCC) 1 each every 15 days. Apply 1 every 15 days as directed for CGM 2 each 10/25/19 25 Active glucose blood (FreeStyle Precision Dylan Test) test stripIndications :Type 2 diabetes mellitus with diabetic microalbuminuria , with long-term current use of insulin (CMS/HCC) Use to test blood sugar 4 times daily in case of CGM failure or extremes of BG 100 each 10/25/19 25 026 Active famotidine (Pepcid) 20 MG tabletIndication s:Dyspepsia Take 1 tablet (20 mg) by mouth 2 times daily. 60 tablet 11 10/25/19 25 026 Active nitrofurantoin, macrocrystal-mon ohydrate, (Macrobid) 100 MG capsuleIndicatio ns:Cystitis Take 1 capsule (100 mg) by mouth 2 times daily for 5 days. 10 capsule 10/25/19 25 025 Active ibuprofen 600 MG tabletIndication s:Adhesive capsulitis of left shoulder Take 1 tablet (600 mg) by mouth every 8 (eight) hours if needed for moderate pain or fever. 30 tablet 09/23/19 25 025 Hospital, Clinic, or Other Facility Administered Medication Ordered Dose Route Frequency Start Date End Date Status Insulin Lispro solution 14 UnitsIndications:Type 2 diabetes mellitus with diabetic microalbuminuria, with long-term current use of insulin ([facility]) 14 Units IJ Once 10/24/2024 10/24/2024 Ende d Active Problems Problem Noted Date Diagnosed Date Adhesive capsulitis of left shoulder 09/23/2024 Assessment & Plan (09/23/2024 2:27 PM EST): Sxs consistent with frozen shoulder. Moderate decreased ROM on exam. -prescribed predniSONE (Deltasone) 20 MG and ibuprofen 600 MG -ordered L shoulder XR -referred to orthopedics Recurrent major depressive disorder 06/24/2024 Retained dental root 03/21/2024 Dental plaque 03/21/2024 Excessive attrition of teeth, limited to enamel 03/21/2024 Tobacco use 04/25/2023 Mood disorder 04/25/2023 Assessment & Plan (09/23/2024 2:27 PM EST): -gave number to call [facility] Healthcare maintenance 03/03/2023 Overview (02/19/2024): Pap: 2-18, HPV neg NIL-->overdue for repeat. Will schedule appointment today Mammogram: Pt missed multiple appointments--she needs to call to reschedule BMD: Routine age 65 LDLCT: Accepts referral to [facility] CRC: Has not complete previous GI referrals or cologuard (last ordered 07/2023) Will address again at follow up Assessment & Plan (08/05/2023 9:07 AM EST): ?? Will reorder mammogram ?? Pt accepts cologuard today. Declines GI ?? Accepts flu and PCV 20 Edentulous maxilla 10/20/2022 Left anterior fascicular block 07/05/2022 Prolonged QT interval 08/06/2018 Type 2 diabetes mellitus 11/19/2017 Overview (02/19/2024): - Lantus 22 units q. evening - Metformin 1000mg b.i.d - Trulicity 4.5 mg SQ weekly - Humalog per sliding scale Current A1c 03/03/23-12.4 Foot Exam: 07/2023 Risk 1 Eye Exam: 06/2023 [facility] Lipid panel: 02/2023 Microalbumin:creatinine ratio: 42.5 02/2023 Statin: Yes ASA: Yes LAVELLE/ARB: Yes Encouraged regular aerobic exercise for improved glycemic control Encouraged daily foot checks Encouraged lean protein snacks and to avoid foods high in sugar and simple carbohydrates Treatment Goals: A1c goal: <7% FBG goal: <130 2 hour post prandial goal: <180 Assessment & Plan (08/05/2023 9:21 AM EST): Lab Results Component Value Date HGBA1C 13.9 (A) 06/19/2023 HGBA1C 12.4 (A) 03/03/2023 HGBA1C 12.9 (A) 02/23/2023 Lab Results Component Value Date MICROALBUR 10.0 03/05/2023 CREATININE 0.86 03/03/2023 ?? INCREASE trulicity to 4.5mg subcutaneous ?? Will reach out to DM educator re CGM start ?? Assessment & Plan (06/21/2023 6:39 AM EST): ?? Concern for hypoglycemia if restart at previous dose. Plan to simplify insulin regimen ?? STOP humalog ?? RESTART lantus-15 units every evening ?? RESTART trulicity at 3mg subcutaneous (previously well tolerated by patient) ?? Resubmit referral to DM educator to assist with CGM start Assessment & Plan (04/25/2023 10:22 PM EDT): Lab Results Component Value Date HGBA1C 12.4 (A) 03/03/2023 ?? CGM sensor resent ?? Will refer to [facility] DM educator ?? Will hold off on adjusting insulin dose until more BS data available as patient has hx of hypoglycemia ?? Continue current regimen Assessment & Plan (03/06/2023 1:36 PM EDT): Lab Results Component Value Date HGBA1C 12.4 (A) 03/03/2023 ?? INCREASE trulicity to 4.5mg subcutaneous ?? Refilled lantus and humalog ?? PA previously submitted for CGM. Will submit order today to pharmacy Essential hypertension 06/02/2016 Overview (03/06/2023): ?? Olmesartan 20mg daily ?? Referred to cardiology (Dr. Mojica) in 2020 d/t reports of chest pain. Visit note not in chart. ?? Echo from 10/2020 unremarkable ?? Hx of QT prolongation noted at ED visit in 2018 thought to be related to high dose seroquel (600mg). EKG from 12/2021 with persistent left anterior fascicular block but no QT prolongation Assessment & Plan (08/05/2023 9:12 AM EST): Well controlled Continue current regimen ?? Repeat EKG at follow up Assessment & Plan (06/21/2023 6:36 AM EST): ?? Well controlled ?? Continue current regimen ?? Plan for repeat baseline EKG at follow up Assessment & Plan (04/25/2023 10:23 PM EDT): ?? BP well controlled with medbox ?? Continue current regimen ?? New BP kit sent to pharmacy jail (current) use of insulin 06/26/2015 Chronic major depressive disorder, single episod e 05/23/2015 Overview (03/06/2023): - Seroquel 150mg every evening for help with sleep - Sertraline 50mg - Psychiatric history unclear. ?bipolar disorder - Hx of suicidal ideation and psych hospitalization - Referred to [facility], per chart note, contact attempt was made. Patient needs to call back Assessment & Plan (06/21/2023 6:33 AM EST): - Resubmit referral to (STAT) - Contact HC if sx worsen or experiencing thoughts of SI or self harm. Pt has [facility] crisis contact information Hyperlipidemia 05/23/2015 Hypothyroidism 05/23/2015 Overview (08/05/2023): Levothyroxine 75mcg Assessment & Plan (08/05/2023 9:15 AM EST): Repeat TSH today Severe persistent asthma 05/23/2015 Overview (03/06/2023): ?? Advair ?? Spiriva ?? Albuterol ?? Previously seen by Dr. Tejeda in pulmonology. Last visit note from 01/2019 at which time patient was taking daily oral prednisone for mngmt Assessment & Plan (08/05/2023 9:24 AM EST): - persistent diffuse wheezing consistent with baseline - Patient previously referred multiple times to pulmonology but did not follow through. Will task RN's to scheduled follow up visit - ED precautions reviewed - Will trial switch to trelegy if covered by insurance Assessment & Plan (06/21/2023 6:48 AM EST): - persistent diffuse wheezing consistent with baseline - Patient previously referred multiple times to pulmonology but did not follow through. Will task RN's to scheduled follow up visit - ED precautions reviewed Assessment & Plan (04/25/2023 10:25 PM EDT): - persistent diffuse wheezing - Patient previously referred multiple times to pulmonology but did not follow through. Provided patient and her daughter with [facility] pulmonology phone number to call and schedule initial appointment. - ED precautions reviewed Assessment & Plan (03/06/2023 1:10 PM EDT): ?? Persistent diffuse wheezing ?? Will re-submit referral to pulmonology Resolved Problems Problem Noted Date Diagnosed Date Resolved Date Microalbuminuria due to type 2 diabetes mellitus ([facility]) 04/25/2023 02/19/2024 Periodontal disease 10/23/2022 03/03/20 Dental caries 10/23/2022 03/03/2023 History of severe acute resp iratory syndrome coronavirus 2 (SARS-CoV-2) disease 09/24/202002/18 Thoracic back pain 01/18/2018 Allergic rhinitis 06/02/2016 03/06/2023 Encounters * This document contains information received from the source organization and may not represent a complete record from that organization. Date Type Department Care Team Description 10/24/2024 1:00 PM EDT Office Visit [facility] MEDICINE [address] [place] [id number] [place] Marilu [facility] Cystitis (Primary Dx); Type 2 diabetes mellitus with diabetic microalbuminuria, with long-term current use of insulin ([facility]); Chronic diarrhea; Dyspepsia; Severe persistent asthma, unspecified whether complicated 10/24/2024 Travel 10/21/2024 Telephone [facility] OPTOMET[facility] [address] [place], [place] [phone] Ellyn Solo, OD 10/18/2024 Telephone [facility] MED[facility] [address] [place] [address] [place] [facility] 10/17/2024 Patient Outreach [facility] & PEDS [address] [place], [place] [phone] [facility] Marilu [facility] Pre-visit Planning ([facility] unable to reach [facility] ) 09/23/2024 3:00 PM EST Office Visit [facility] WALK[facility] [address], [place] [phone] Laurence Parrish MD Adhesive capsulitis of left shoulder (Primary Dx); Mood disorder ([facility]) 09/23/2024 Refill [facility] [address], [place] [phone] Lexx Christianson MD Mood disorder ([facility]); Thoracic back pain, unspecified back pain laterality, unspecified chronicity 08/16/2024 Refill [facility] [address] [place] [address] Marilu Reynoso, HAND POLISHER Mood disorder ([facility]); Thoracic back pain, unspecified back pain laterality, unspecified chronicity 08/13/2024 Refill [facility] [address] [place] [address] [place], Marilu, HAND POLISHER Thoracic back pain, unspecified back pain laterality, unspecified chronicity; Mood disorder (CMS/HCC) 08/08/2024 Telephone [facility] [address] [place] [phone] Lisset Varner, RN Care Management ([facility] TC #3-case closed) 07/27/2024 Telephone [facility] [address] [place] [address] Lisset Varner, GERMANIA Care Management ([facility] TC #2-lvm) from Last 3 Months Immunizations Name Administration Dates Next Due Hep B, adult 02/07/2014,09/22/2013,07/21/2013 Influenza Injectable Quadriv alant Preservative Free IIV4 MDCK 05/20/2022 Influenza injectable quadriv alent IIV4 with preservative 05/11/2018,07/23/2017,06/02/2016,05/23 Influenza injectable quadriv alent preservative free 07/20/2023,05/18/2020,05/17/2019 Influenza, IIV3, injectable 06/05/2014,1 ,07/16/2005,06/21,2003,05/27/2002,06/15/2000 ,06/21/1999,07/12/1997 Influenza, Split (incl. patrice fied surface antigen) 07/21/2013,04/13/2012 Influenza, seasonal, injecta ble, preservative free 07/11/2024 Moderna Covid-19 Vaccine 12+ 03/25/2021,02/23/20 21 Pfizer Covid-19 Vaccine 12+ 07/18/2024, Pneumococcal Conjugate PCV 20 07/20/2023 Pneumococcal Polysaccharide PPSV23 02/22/2017, TD (adult), 2 Lf tetanus tox oid, preservative free, adsorbed 01/10/2005,04/15/1995,08/30/1993,08/17 Tdap 10/12/2023,07/21/2013 Zoster, Recombinant 10/12/2023,05/20/2022 Family History Medical History Relation Name Comments Breast cancer Maternal Grandmother Asthma Mother Diabetes Mother Hypertension Mother Stroke Mother's Sister Colon cancer Paternal Grandfather Breast cancer Paternal Grandmother Relation Name Status Comments Maternal Grandmother Mother Mother's Sister Paternal Grandfather Paternal Grandmother Social History Tobacco Use Types Packs/Day Years Used Date Smoking Tobacco: Every Day Cigarettes Passive Smoke Exposure: Never Smokeless Tobacco: Never Tobacco Cessation:Ready to Q uit: Not Asked; Counseling Given: Not Answered Alcohol Use Standard Drinks/Week Comments Never 0 [...] Orientation Straight 06/16/2022 10 :14 AM EDT Last Filed Vital Signs Vital Sign Reading Time Taken Comments Blood Pressure 164/79 10/24/2024 1:04 PM EDT Pulse 98 10/24/2024 1:04 PM EDT Temperature 36.6 ??C (97.8 ??F) 10/24/2024 1:04 PM ED T Respiratory Rate 20 10/24/2024 1:04 PM EDT Oxygen Saturation 97% 10/24/2024 1:04 PM EDT Inhaled Oxygen Concentration - - Weight 85.5 kg (188 lb 9.6 oz) 10/24/2024 1:04 P M EDT Height 152.4 cm (5') 10/24/2024 1:04 PM EDT Body Mass Index 36.83 10/24/2024 1:04 PM EDT Plan of Treatment Health Maintenance Due Date Last Done Comments CT Colonography 1970 Dental Prophylaxis 1970 Dental X-Ray: Bitewings 1970 Dental X-Ray: Full Mouth 1970 FIT DNA/Cologuard 1970 FIT 1970 FOBT 1970 HIV Screening 1970 Sigmoidoscopy 1970 Alcohol/Substance Use Screening 1982 Hepatitis C Screening 1988 Pap Smear 1991 Mammogram 08/16/2021 08/16/2019, 07/18, 07/28/2017 Colonoscopy 06/28/2022 06/28/2019 Colorectal Cancer Screening 06/28/2022 Cervical Cancer Screening 05/11/2023 HPV/Cotest 05/11/2023 05/11/2018, 01/14/2017 Dental Oral Exam 09/22/2024 03/21/2024, 10/23/2022 Depression Monitoring (PHQ-9) 01/16/2025 07/18/2024, 07/18/2024 Diabetes: Hemoglobin A1C 01/24/2025 025, 06/15/2024, 02/17/2024, Additional history exists SDOH Screening 03/18/2025 03/18/2024 Eye Exam 06/25/2025 06/25/2023, 110 04/2023, 06/25/2023, Additional history exists Lipid Panel 07/11/2025 07/11/2024, 0703/2023, 01/03/2022 Depression Screening 07/18/2025 07/18/2024, 07/18/20 Diabetes: Foot Exam 07/18/2025 07/18/2024, 07/18/2024, 07/18/2024, Additional history exists Tobacco Screening 10/24/2025 10/24/2024 DTaP/Tdap/Td Vaccines (4 - Td or Tdap) 10/12/2033 10/12/2023, 07/21/2013, 01/10/2005, Additional history exists RSV Patients and Patients Aged 60 years or older (1 - 1-dose 75+ series) 2045 Hepatitis B Vaccines Completed 02/07/2014, 09/22/2013, 07/21/2013 Pneumococcal Vaccine: 50+ Years Completed 07/20/2023, 02/22/2017, 12/21/2001 Zoster Vaccines Completed 10/12/2023, 05/20/2022 Influenza Vaccine Completed 07/11/2024, , 05/20/2022, Additional history exists COVID-19 Vaccine Completed 07/18/2024, 11/2022, 03/25/2021, Additional history exists HIB Vaccines Aged Out No longer eligi ble based on patient's age to complete this topic HPV Vaccines Aged Out No longer eligi ble based on patient's age to complete this topic Hepatitis A Vaccines Aged Out No long er eligible based on patient's age to complete this topic IPV Vaccines Aged Out No longer eligi ble based on patient's age to complete this topic Meningococcal Vaccine Aged Out No bria santana eligible based on patient's age to complete this topic RSV under 20 months Aged Out No longe r eligible based on patient's age to complete this topic Rotavirus Vaccines Aged Out No longer eligible based on patient's age to complete this topic Procedures Procedure Name Priority Date/Time Associated Diagnosis Comments POCT GLUCOSE Routine 10/24/2024 1:47 PM EDT Type 2 diabetes mellitus with diabetic microalbuminuria, with long-term current use of insulin ([facility]) POCT GLYCATED HEMOGLOBIN, TOTAL Routine 10/24/2024 1:47 PM EDT Type 2 diabetes mellitus with diabetic microalbuminuria, with long-term current use of insulin ([facility]) XR SHOULDER 2+ VIEWS LEFT Routine 09/23/2024 3:06 PM EST Adhesive capsulitis of left shoulder LIPID PANEL, STANDARD Routine 07/11/2024 3:30 PM EST PERIODIC ORAL EVALUATION - ESTABLISHED PATIENT Routine 03/21/2024 2:30 PM EDT BI MAMMOGRAM SCREENING BILATERAL Routine 08/16/2019 11:01 AM EST HM COLONOSCOPY Routine 06/28/2019 8:54 AM EST ZZZ HISTORICAL HPV MRNA E6/E7 Routine 05/11/2018 10:15 AM EDT from Last 3 Months or Most Recently Relevant to Health Maintenance Results * (ABNORMAL) POCT HGB A1C (10/24/2024 1:47 PM EDT) Hemoglobin A1C 9.9(A) 4.0 - 6.0 % Blood 10/24/2024 1:47 PM EDT [facility] POINT OF CARE TEST ENTER/EDIT ORDERABLES Final Result * (ABNORMAL) POCT Glucose (10/24/2024 1:47 PM EDT) Glucose Blood, POC 500(A) 60 - 200 mg/dL Comment:[facility] Blood Capillary blood specimen / Unknown 10/24/2024 1:47 PM EDT [facility] POINT OF CARE TEST ENTER/EDIT ORDERABLES Final Result * XR Shoulder 2+ Views Left (09/23/2024 3:06 PM EST) Anatomical Region Laterality Modality Upper Extremities, Shoulder Left Radi ographic Imaging 09/23/2024 3:06 PM EST Narrative 09/23/2024 3:26 PM EST ?[facility] ?[address] ?[place] [address] ?XRay Report ? Signed ? Patient: Aviles,Shannon ?MR#: [id number] ?? [id number] ? : 1970 ?Acct:[id number] ? Age/Sex: 54 / F ?ADM Date: 09/23/24 ? Loc: HO.HHCX ? Attending Dr: Laurence Parrish MD ? Ordering Physician: Laurence Parrish MD ?? Date of Service: 09/23/24 ?? Procedure(s): XR shoulder LT min 2V ?? Accession Number(s): [id number] ? cc: Laurence Parrish MD ? EXAMINATION: ??XR SHOULDER 2 OR MORE VIEWS LEFT ? HISTORY: shoulder pain x 2 months with significant limited ROM ? COMPARISON: Comparison is made with the prior examination dated ?? 05/27/2022. ? FINDINGS: ? Three views of the left shoulder are submitted. ??Osseous mineralization ?? is normal. ??There is no fracture or dislocation. ??The joint spaces are ?? preserved. ??The soft tissues are unremarkable. ? XR/XR shoulder LT min 2V ?? IMPRESSION: ? Unremarkable examination of the left shoulder. ? Electronically signed by: ??Dereje Veloz MD ??09/23/2024 03:24 PM EST ? Dictated By: ?Dereje Veloz MD ? Signed By: ?<Electronically signed by Dereje Veloz MD in OV> ?09/23/24 1524 ? DD/ 1506 ? TD/TT: 09/23/24 1521 ? Clinical Social Work Aide: ? Procedure Note Jr Salinas - 09/23/2024 [facility] [address] [place] [address] XRay Report Signed Patient: AvilesPamela hernández#: [id number] : 1970Acct:[id number] Age/Sex: 54 / FADM Date: 09/23/24 Loc: HO.HHCX Attending Dr: Laurence Parrish MD Ordering Physician: Laurence Parrish MD Date of Service: 09/23/24 Procedure(s): XR shoulder LT min 2V Accession Number(s): [id number] cc: Laurence Parrish MD EXAMINATION: XR SHOULDER 2 OR MORE VIEWS LEFT HISTORY: shoulder pain x 2 months with significant limited ROM COMPARISON: Comparison is made with the prior examination dated 05/27/2022. FINDINGS: Three views of the left shoulder are submitted. Osseous mineralization is normal. There is no fracture or dislocation. The joint spaces are preserved. The soft tissues are unremarkable. XR/XR shoulder LT min 2V IMPRESSION: Unremarkable examination of the left shoulder. Electronically signed by: Dereje Veloz MD 09/23/2024 03:24 PM EST Dictated By: Dereje Veloz MD Signed By: <Electronically signed by Dereje Veloz MD in OV> 09/23/24 1524 DD/ 1506 TD/TT: 09/23/24 1521 Clinical Social Work Aide: Laurence Parrish MD IMG XR PROCEDURES Final Re sult * (ABNORMAL) Lipid Panel, Standard (07/11/2024 3:30 PM EST) Triglycerides 184(H) <150 mg/dL [facility] Comment:Desirable Triglyceri de: less than 150 mg/dLBorderline High Triglyceride 150-199 mg/dLHigh Triglyceride: 200-499 mg/dLVery High Triglyceride: greater than or equal to 5OO mg/dL Cholesterol 123 <200 mg/dL [facility] Comment:Desirable Cholestero l: less than 200 mg/dLBorderline High Cholesterol: 200-239 mg/dLHigh Cholesterol: greater than 239 mg/dL LDL Cholesterol Calculated 46 <100 mg/dL [facility] Comment:Desirable LDL: less than 100 mg/dLNear Optimal/Above Optimal LDL: 110- 129 mg/dLBorderline High LDL: 130-159 mg/dLHigh LDL: 160-189 mg/dLVery High LDL: greater than or equal to 190 mg/dL HDL Cholesterol 41 >40 mg/dL [facility] Comment:Desirable HDL: great er than 40 mg/dL Note: This HDL assay may give artificially low results in patients with liver disease. 07/11/2024 3:30 PM EST 07/11/2024 3:55 PM EST [facility] LAB BLOOD ORDERABLES Final Re sult [facility] [address] [place] [phone] * 3D DIGITAL TREMAYNE SCR MAMMO 1 (08/16/2019 11:01 AM EST) Anatomical Region Laterality Modality Breast Bilateral Mammography 08/16/2019 11:0 1 AM EST Narrative 08/16/2019 11:02 AM EST Refer to the Notes tab for result details [facility] Procedure: 3D DIGITAL TREMAYNE SCR MAMMO 1 Procedure Note Provider, Yessenia, - 11/08/2022 Refer to the Notes tab for result details [facility] Procedure: 3D DIGITAL TREMAYNE SCR MAMMO 1 Mehreen Sorto NP IMG BI PROCEDURES Final Result * Hm Colonoscopy (06/28/2019 8:54 AM EST) Historical Provider HEALTH MAINTENANCE Final Result * HPV mRNA E6/E7 (05/11/2018 10:15 AM EDT) HPV mRNA E6/E7 Not Detected NOT DETECTED [facility] Comment: This test was performed using the APTIMA(R) HPV Assay ([employer] This assay detects E6/E7 viral messenger RNA (mRNA) from 14 high-risk HPV types (16,18,31,33,35,39,45,51, 52,56,58,59,66,68). For additional information please refer to: http://education.AccurIC/faq/YUQ537k0 (This link is being provided for informational/ educational purposes only.) The analytical performance characteristics of this assay have been determined by [employer] [place], [place]. The modifications have not been cleared or approved by the FDA. This assay has been validated pursuant to the CLIA regulations and is used for clinical purposes. Test Performed by [facility], [facility], [address] [place], [place] Messi Bowen M.D., Ph.D., Director of Laboratories , CLIA [id number] Please note: ??Effective 04/28/2016, HPV testing will be performed using [employer]'s APTIMA test which targets mRNA. Detecting mRNA instead of DNA, as in older methods, offers significant improvements in specificity. 05/11/2018 10:1 5 AM EDT Mehreen Sorto NP HISTORICAL/NON ORDERABLE LABS Fi nal Result [facility] [address] from Last 3 Months or Most Recently Relevant to Health Maintenance Insurance [facility] C3 DENTAL-[facility] MEDICAID STAND ADULT Care Teams Culture Room Worker Relationship Specialty Start Date End Date Marilu Reynoso FNP [address] [place], [place] PCP - General Family Medicine 01/02/22 Raissa To PharmD [address] [place], [place] Pharmacist Internal Medicine 06/17/24
--- OUTSIDE RECORDS SUMMARY | 2024-10-24 16:28 | XMS_ITS | Encounter Summary ---
Author Organization [employer] Address [address] [place] [address] Care Team Providers Care General Internal Medicine Doctor Name Role Phone [place] [facility] Primary Care Provider [phone] Raissa To PharmD Unavailable [phone] Reason for Visit * Reason Comments Pre-visit Planning SDOH unable to reach LVM Encounter Details Date Type Department Care Team (Late st Contact Info) Description 10/17/2024 Patient Outreach [facility] [address] [place], [place] [phone] [place], [facility] [address] [place] [address] Pre-visit Planning (SDOH unable to reach LVM ) Social History Tobacco Use Types Packs/Day Years [...] AM EDT documented as of this encounter Progress Notes * Amy Begum - 10/17/2024 2:16 PM EST RUSLAN Justice placed outbound call to patient to complete pre-visit planning. No answer at this time. Patient name and were not confirmed. CC left voicemail requesting return call. Direct contactinformation provided. documented in this encounter Plan of Treatment Not on file documented as of this encounter Visit Diagnoses Not on filedocumented in this encounter Additional Health Concerns Assessment Noted Time PHQ-9 Depression Total Score: 9 07/18/20 24 1:40 PM EST documented as of this encounter Care Teams General Internal Medicine Doctor Relationship Specialty Start Date End Date Marilu Reynoso FNP [address] [place] [address] PCP - General Family Medicine 01/02/22 Raissa To, Rafia [address] [place] [address] Pharmacist Internal Medicine 06/17/24 documented as of this encounter
--- OUTSIDE RECORDS SUMMARY | 2024-10-24 16:28 | XMS_ITS | Encounter Summary ---
Author Organization [employer] Address [address] [place] [address] Care Team Providers Care Neighborhood Planner Name Role Phone Marilu Reynoso RETAIL SUPERVISOR Primary Care Provider [phone] Raissa To PharmD Unavailable [phone] Reason for Visit * Reason Comments Med Refill Encounter Details Date Type Department Care Team ([facility] Contact Info) Description 06/08/2023 Telephone [facility] [address] [place], [place] [phone] Name, MD Lex[employer] [address] [place], [place] [phone] Med Refill Social History Tobacco Use Types Packs/Day Years [...] encounter Miscellaneous Notes * Telephone Encounter - Batsheva Hunter [place] - 06/22/2023 1:56 PM EST Patient has no show/cancelled multiple time. LVM to office to see if patient can be rescheduled. * Telephone Encounter - Batsheva Hunter [place] - 06/22/2023 1:56 PM EST ----- Message from CANDIS Boateng sent at 06/21/2023 6:48 AM EST ----- Would you mind setting up [facility] pulmonology appointment for patient? documented in this encounter Plan of Treatment Not on file documented as of this encounter Visit Diagnoses Diagnosis Essential hypertension Unspecified essential hypertension documented in this encounter Additional Health Concerns Assessment Noted Time PHQ-9 Depression Total Score: 16 023 1:53 PM EDT documented as of this encounter Care Teams Neighborhood Planner Relationship Specialty Start Date End Date Marilu Reynoso FNP [address] [place] [address] PCP - General Family Medicine 01/02/22 Raissa To, ConsueloD [address] [place] [address] Pharmacist Internal Medicine 06/17/24 Lisset Varner Insulation Machine Operator 04/08/24 07/08/24 documented as of this encounter
--- OUTSIDE RECORDS SUMMARY | 2024-10-24 16:28 | XMS_ITS | Encounter Summary ---
Author Organization [employer] [facility] Address [address] [place] [address] 7t [place] [address] Care Team Providers Care Underground Utility Locator Name Role Phone Marilu Reynoso Primary Care Provider [phone] Raissa To PharmD Unavailable [phone] Reason for Referral * Consultation (Routine) - Pending Review Specialty Diagnoses / Procedures Referred By Shane hubbard Referred To Contact Pulmonary Disease Diagnoses Severe persistent asthma, unspecified whether complicated Marilu Reynoso FNP [address] [place] [address] Phone: tel: fax: Referral ID Status Reason Start Date Expiration Date Visits Requested Visits Authorized [id number] Pending Review Specialty Services Required 10/24/2024 10/24/2025 1 1 * Consultation (Routine) - Pending Review Specialty Diagnoses / Procedures Referred By Shane hubbard Referred To Contact Gastroenterology Diagnoses Chronic diarrhea Marilu Reynoso FNP [address] [place] [address] Phone: tel: fax: Referral ID Status Reason Start Date Expiration Date Visits Requested Visits Authorized [id number] Pending Review Specialty Services Required 10/24/2024 10/24/2025 1 1 Reason for Visit * Reason Comments Follow-up Encounter Details Date Type Department Care Team ([facility] Contact Info) Description 10/24/2024 1:00 PM EDT Office Visit [facility] [address] [place] [address] AngelesMarilu ASSEMBLY STOCK SUPERVISOR [address] [place] [address] Cystitis (Primary Dx); Type 2 diabetes mellitus with diabetic microalbuminuria, with long-term current use of insulin ([facility]); Chronic diarrhea; Dyspepsia; Severe persistent asthma, unspecified whether complicated Social History Tobacco Use Types Packs/Day Years [...] AM EDT documented as of this encounter Last Filed Vital Signs Vital Sign Reading [...] Mass Index 36.83 10/24/2024 1:04 PM EDT documented in this encounter Patient Instructions * Patient Instructions* CANDIS Boateng - 10/24/2024 1:00 PM EDT - Restart insulin as directed--check blood sugar 3-4x daily. If having issues with glucometer please contact health center or pharmacy - Complete labwork/urine culture/stool studies - Start antibiotics - Continuous glucose monitor start-->phone call from nurses to start - Referral to gastroenterology - Trial famotidine PRN - Referral to pulmonology documented in this encounter Plan of Treatment Scheduled Orders Name Type Priority Associated Diagnoses Orde r Schedule Culture, Urine, Routine Microbiology Routine Cystitis Expected: 10/24/2024 (Approximate), Expires: 10/24/2025 Helicobacter pylori??Antigen, EIA, Stool Lab Routine Dyspepsia Expected: 10/24/2024, Expires: 10/24/2025 Calprotectin, Stool Lab Routine Chronic diarrhea Expected: 10/24/2024, Expires: 10/24/2025 Scheduled Referrals Name Type Priority Associated Diagnoses Order Schedule Referral to Gastroenterology Outpatient Referral Routine Chronic diarrhea Expected: 10/24/2024 (Approximate), Expires: 10/24/2025 Referral to Pulmonology Outpatient Referral Routine Severe persistent asthma, unspecified whether complicated Expected: 10/24/2024 (Approximate), Expires: 10/24/2025 documented as of this encounter Procedures Procedure Name Priority Date/Time Associated Diagnosis Comments POCT GLYCATED HEMOGLOBIN, TOTAL Routine 10/24/2024 1:47 PM EDT Type 2 diabetes mellitus with diabetic microalbuminuria, with long-term current use of insulin ([facility]) POCT GLUCOSE Routine 10/24/2024 1:47 PM EDT Type 2 diabetes mellitus with diabetic microalbuminuria, with long-term current use of insulin ([facility]) documented in this encounter Results * (ABNORMAL) POCT Glucose (10/24/2024 1:47 PM EDT) Glucose Blood, POC 500(A) 60 - 200 mg/dL Comment:[facility] Blood Capillary blood specimen / Unknown 10/24/2024 1:47 PM EDT Result [facility] POINT OF CARE TEST ENTER/EDIT ORDERABLES Final Result * (ABNORMAL) POCT HGB A1C (10/24/2024 1:47 PM EDT) [facility] Hemoglobin A1C 9.9(A) 4.0 - 6.0 % Blood 10/24/2024 1:47 PM EDT [facility] POINT OF CARE TEST ENTER/EDIT ORDERABLES Final Result documented in this encounter Visit Diagnoses Diagnosis Cystitis- Primary Unspecified cystitis Type 2 diabetes mellitus with diabetic microalbuminuria, with long-term current use of insulin ([facility]) Chronic diarrhea Diarrhea Dyspepsia Dyspepsia and other specified disorders of function of stomach Severe persistent asthma, unspecified whether complicated documented in this encounter Administered Medications Inactive Administered Medications - up to 3 most recent administrations Medication Order MAR Action Action Date Dose Rate Site Insulin Lispro solution 14 Units 14 Units, Injection, Once, On 10/24/24 at 1345, For 1 doseIndications:Type 2 diabetes mellitus with diabetic microalbuminuria, with long-term current use of insulin ([facility]) Given 10/24/2024 1:45 PM EDT 14 Units documented in this encounter Additional Health Concerns Assessment Noted Time PHQ-9 Depression Total Score: 9 07/18/20 24 1:40 PM EST documented as of this encounter Care Teams Underground Utility Locator Relationship Specialty Start Date End Date Marilu Reynoso FNP [address] [place] [address] PCP - General Family Medicine 01/02/22 Raissa To PharmD [address] [place] [address] Pharmacist Internal Medicine 06/17/24 documented as of this encounter
[2024-10-24 17:01] LABS: Vitamin B12 1923 pg/mL (200-900)
[2024-10-27 14:08] LABS: TS Negative Control Passed; TS Panel A 0; TS Panel B 0; TS Positive Control Passed; TSpotTB Negative (Negative)
== END 2024-10-24 14:26 | disposition home or self-care (01) ==
LOC: HO.HHCL 14:25
PROVIDERS: Visit Provider Registered Nurse
DX: Z00.00 Encounter for general adult medical examination without abnormal findings (principal); Z11.1 Encounter for screening for respiratory tuberculosis; N30.90 Cystitis, unspecified without hematuria
CPT/HCPCS: 36415; 82607; 86481; 87086; 87088; 87186

== ENCOUNTER 2024-10-26 18:32 | Outpatient (REF) | payer MEDICAID, SELFPAY ==
--- OUTSIDE RECORDS SUMMARY | 2024-10-26 18:54 | XMS_ITS | Encounter Summary ---
Author Organization [employer] Address [address] [place] [address] Care Team Providers Care Marine Electrician Name Role Phone [place], [facility] Primary Care Provider [phone] Raissa To PharmD Unavailable [phone] Encounter Details Date Type Department Care Team (Late st Contact Info) Description 06/10/2023 Abstract [facility] [address] [place], [place] [phone] [place] sam[place], [facility] [address] [place], [place] [phone] Social History Tobacco Use Types Packs/Day Years [...] documented as of this encounter Care Teams Marine Electrician Relationship Specialty Start Date End Date Marilu Reynoso FNP [address] [place] [address] PCP - General Family Medicine 01/02/22 Raissa To PharmD [address] [place] [address] Pharmacist Internal Medicine 06/17/24 Lisset Varner Inspector Soldering 04/08/24 07/08/24 documented as of this encounter
--- OUTSIDE RECORDS SUMMARY | 2024-10-26 18:54 | XMS_ITS | Encounter Summary ---
Author Organization [employer] Address [address] [place] [address] Care Team Providers Care Electrical Equipment Tester Name Role Phone Marilu Reynoso BATON TWIRLER Primary Care Provider Raissa To PharmD Unavailable [phone] Encounter Details Date Type Department Care Team (Late st Contact Info) Description 07/14/2023 Abstract [facility] [address] [place], [place] [phone] Shruthi Esparza Social History Tobacco Use Types [...] documented as of this encounter Care Teams Electrical Equipment Tester Relationship Specialty Start Date End Date Marilu Reynoso FNP [address] [place] [address] PCP - General Family Medicine 01/02/22 Raissa To PharmD [address] [place] [address] Pharmacist Internal Medicine 06/17/24 Lisset Varner Sumac Tanner 04/08/24 07/08/24 documented as of this encounter
--- OUTSIDE RECORDS SUMMARY | 2024-10-26 18:54 | XMS_ITS | Encounter Summary ---
Author Organization [employer] Address [address] [place] [address] Care Team Providers Care Body Finisher Name Role Phone [place], [facility] Primary Care Provider [phone] Raissa To PharmD Unavailable [phone] Encounter Details Date Type Department Care Team (Late st Contact Info) Description 10/18/2024 Telephone [facility] [address] [place], [place] [phone] AngelesMarilu samayoa, [facility] [address] [place], [place] [phone] Social History Tobacco Use Types Packs/Day Years [...] for patient to contact Marii Funes at [phone]. documented in this encounter Plan of Treatment Not on file documented as of this encounter Visit Diagnoses Not on filedocumented in this encounter Additional Health Concerns Assessment Noted Time PHQ-9 Depression Total Score: 9 07/18/20 24 1:40 PM EST documented as of this encounter Care Teams Body Finisher Relationship Specialty Start Date End Date Marilu Reynoso FNP [address] [place] [address] PCP - General Family Medicine 01/02/22 Raissa To PharmD [address] [place] [address] Pharmacist Internal Medicine 06/17/24 documented as of this encounter
--- OUTSIDE RECORDS SUMMARY | 2024-10-26 18:54 | XMS_ITS | Clinical Summary ---
Author Organization [employer] Address [address] [facility] [address] [facility] [address] [place] [address] Care Team Providers Care Hand Cultivator Name Role Phone Marilu Reynoso [employer]MAKER GR[employer] Primary Care Provider [phone] Raissa To PharmD Unavailable [phone] Allergies Active Allergy Reactions Criticality Noted Date [...] the evening and 2 tablets before bedtime. 020 Active nicotine polacrilex (Nicorette) 4 MG gum chew 1 piece of gum by oral route every 1-2 hours as needed for weeks 1-6, then 1 piece every 2-4 hours weeks 7-9, then 1 piece every 4-8 hours weeks 10-12. 022 Active ibuprofen 400 MG tablet Take 400 mg by mouth every 6 (six) hours. 022 Active Methylcobalamin 1 MG chewable tablet Chew 2 tablets in the morning. Active Spacer/Aero-Hol ding Chambers device Use it every 4-6 hrs Active Diclofenac Sodium 1 % gel Apply topically. Apply 2 gram by topical route 3 times every day to the affected areas as needed for pain Active tiotropium (Spiriva HandiHaler) 18 MCG inhalation capsuleIndicati ons:Severe persistent asthma without complication Place 1 capsule (18 mcg) into inhaler and inhale in the morning. Place into inhaler and inhale. 30 capsule 11 023 Active Blood Pressure kitIndications: Essential hypertension Check bp 1-2 times per day. 1 kit 023 Active albuterol (Ventolin HFA) 108 (90 Base) MCG/ACT inhalerIndicati ons:Severe persistent asthma without complication INHALE 2 PUFFS BY MOUTH EVERY 4 TO 6 HOURS NEEDED 18 g 3 023 Active albuterol (2.5 MG/3ML) 0.083% nebulizer solutionIndicat ions:Severe persistent asthma without complication INHALE 3 ML NEBULIZER EVERY 4 HOURS NEEDED FOR WHEEZING 90 mL 3 023 Active Trelegy Ellipta 100-62.5-25 MCG/ACT aerosol powderIndicatio ns:Severe persistent asthma, unspecified whether complicated INHALE 1 PUFF BY MOUTH EVERY DAY AT THE SAME TIME IN THE MORNING 60 each 2 024 Active omeprazole (PriLOSEC) [address] capsuleIndicati ons:Dyspepsia TAKE 1 CAPSULE BY MOUTH EVERY MORNING BEFORE A MEAL 90 capsule 3 Active sertraline (Zoloft) 50 MG tabletIndicatio ns:Chronic major depressive disorder, single episode TAKE 1 TABLET BY MOUTH EVERY MORNING 90 tablet 3 Active D3 Super Strength 50 MCG (1999 UT) capsule TAKE 1 CAPSULE BY MOUTH EVERY MORNING 90 capsule 3 024 Active rosuvastatin (Crestor) 40 MG tablet TAKE 1 TABLET BY MOUTH EVERY MORNING 90 tablet 3 Active montelukast (Singulair) 10 MG tablet TAKE 1 TABLET BY MOUTH EVERY EVENING DIRECTED 90 tablet 3 024 Active aspirin (Aspirin Adult Low Strength) 81 MG EC tabletIndicatio ns:Essential hypertension TAKE 1 TABLET BY MOUTH EVERY MORNING 90 tablet 3 Active fluticasone (Flonase) 50 MCG/ACT nasal spray INSTILL 2 SPRAYS IN EACH NOSTRIL ONCE DAILY IN THE MORNING SHAKE GENTLY 48 g Active Alcohol Swabs (Alcohol Prep) 70 % padsIndications :Type 2 diabetes mellitus with hyperglycemia, with long-term current use of insulin (CMS/[facility]) USE TO CLEAN SKIN BEFORE INJECTION DIRECTED 100 each Active insulin lispro (HumaLOG KWIKPEN) 100 UNIT/ML injectionIndica tions:Type 2 diabetes mellitus with hyperglycemia, with long-term current use of insulin (CMS/[facility]) inject by subcutaneous route per the following sliding scale before meals; do not administer if you don't eat. Sliding scale: 131-180=6units, 181-240=8 units, 241-300=10 units, 301-350=12 units, >350=14 units 100 mL 11 Active glucose blood (FREESTYLE LITE) test stripIndication s:Type 2 diabetes mellitus with hyperglycemia, with long-term current use of insulin (CMS/HCC) USE DIRECTED TO TEST BLOOD SUGAR FOUR TIMES DAILY 100 strip Active insulin pen needle (UltiGuard SafePack Pen Needle) 32G x 4 mm miscIndications :Type 2 diabetes mellitus with hyperglycemia, with long-term current use of insulin ([facility]) USE DIRECTED WITH INSULIN 100 each Active TRUEplus Lancets 33G miscIndications :Type 2 diabetes mellitus with hyperglycemia, with long-term current use of insulin ([facility]/HCC) USE DIRECTED TO TEST BLOOD SUGAR FOUR TIMES DAILY 100 each Active levothyroxine (Synthroid, Levoxyl) 75 MCG tablet TAKE 1 TABLET BY MOUTH EVERY MORNING 90 tablet 3 Active olmesartan (BENIcar) 20 MG tablet TAKE 1 TABLET BY MOUTH EVERY MORNING 90 tablet 3 Active Continuous Glucose Hr Assistant (FreeStyle Stevo 2 [place]) deviceIndicatio ns:Type 2 diabetes mellitus with hyperglycemia, with long-term current use of insulin (CMS/[facility]) For monitoring interstitial glucose every 8 hours and as needed 1 each Active Continuous Glucose Sensor (FreeStyle Stevo 2 Sensor) miscIndications :Type 2 diabetes mellitus with hyperglycemia, with long-term current use of insulin ([facility]) Test blood sugar every 8 hours and as needed 2 each 3 Active glucose blood (FreeStyle Precision Dylan Test) test stripIndication s:Type 2 diabetes mellitus with hyperglycemia, with long-term current use of insulin ([facility]) Test blood sugar every 8 hours and as needed 100 each 11 024 2024 Active diphenoxylate-a tropine (Lomotil) 2.5-0.025 MG tablet TAKE 1 TABLET ORALLY 2 TIMES DAILY NEEDED FOR DIARRHEA Active Trulicity 4.5 MG/0.5ML solution auto-injector INJECT ONE PEN (= 4.5MG) SUBCUTANEOUSLY ONCE A WEEK DIRECTED Active nicotine (Nicoderm, Step 1) 21 MG/24HR patch APPLY 1 PATCH TRANSDERMALLY DAILY Active insulin glargine (Lantus SoloStar) 100 UNIT/ML penIndications: Type 2 diabetes mellitus with hyperglycemia, with long-term current use of insulin ([facility]) Inject subcutaneously 24 units once daily Active fexofenadine (Sheri) 180 MG tabletIndicatio ns:Allergic rhinitis, unspecified seasonality, unspecified trigger Take 1 tablet (180 mg) by mouth Once per day. 30 tablet 024 2024 Active empagliflozin (Jardiance) 10 MGIndications:T ype 2 diabetes mellitus with diabetic microalbuminuri a, with long-term current use of insulin ([facility]) Take 1 tablet (10 mg) by mouth Once per day. 30 tablet 11 024 2024 Active predniSONE (Deltasone) 20 MG tabletIndicatio ns:Adhesive capsulitis of left shoulder 2 tabs po daily for 5 days 10 tablet Active Alcohol Swabs (Alcohol Prep) padsIndications :Type 2 diabetes mellitus with diabetic microalbuminuri a, with long-term current use of insulin ([facility]) Use one pad each to prep skin prior to injection as directed 100 each 11 Active Lancets 33G miscIndications :Type 2 diabetes mellitus with diabetic microalbuminuri a, with long-term current use of insulin (CMS/HCC) Use as directed to check blood sugar four times daily 100 each 3 Active Blood Glucose Monitoring Suppl (GNP Easy Touch Glucose Meter) deviceIndicatio ns:Type 2 diabetes mellitus with diabetic microalbuminuri a, with long-term current use of insulin (CMS/HCC) Use as directed to check blood sugar four times daily 1 each Active glucose blood test stripIndication s:Type 2 diabetes mellitus with diabetic microalbuminuri a, with long-term current use of insulin (CMS/HCC) Use as directed to check blood sugar four times daily 100 each 12 Active insulin pen needle 32G x 4 mm miscIndications :Type 2 diabetes mellitus with diabetic microalbuminuri a, with long-term current use of insulin (CMS/HCC) Use as instructed to inject insulin 4 times daily 120 each 2025 Active Continuous Glucose Hr Assistant (FreeStyle Stevo 3 [place]) deviceIndicatio ns:Type 2 diabetes mellitus with diabetic microalbuminuri a, with long-term current use of insulin (CMS/HCC) 1 each Once per day. Use as directed for CGM 1 each Active Continuous Glucose Sensor (FreeStyle Stevo 3 Plus Sensor) miscIndications :Type 2 diabetes mellitus with diabetic microalbuminuri a, with long-term current use of insulin (CMS/HCC) 1 each every 15 days. Apply 1 every 15 days as directed for CGM 2 each Active glucose blood (FreeStyle Precision Dylan Test) test stripIndication s:Type 2 diabetes mellitus with diabetic microalbuminuri a, with long-term current use of insulin ([facility]/HCC) Use to test blood sugar 4 times daily in case of CGM failure or extremes of BG 100 each 2025 Active famotidine (Pepcid) 20 MG tabletIndicatio ns:Dyspepsia Take 1 tablet (20 mg) by mouth 2 times daily. 60 tablet 2025 Active nitrofurantoin, macrocrystal-mo nohydrate, (Macrobid) 100 MG capsuleIndicati ons:Cystitis Take 1 capsule (100 mg) by mouth 2 times daily for 5 days. 10 capsule 025 2024 Active QUEtiapine (SEROquel) 200 MG tabletIndicatio ns:Mood disorder ([facility]) TAKE 1 TABLET BY MOUTH AT BEDTIME 90 tablet 025 Active gabapentin (Neurontin) 100 MG capsuleIndicati ons:Thoracic back pain, unspecified back pain laterality, unspecified chronicity TAKE 2 CAPSULES BY MOUTH THREE TIMES DAILY IN THE MORNING, AT NOON AND AT BEDTIME 540 capsule 025 Active ibuprofen 600 MG tabletIndicatio ns:Adhesive capsulitis of left shoulder Take 1 tablet (600 mg) by mouth every 8 (eight) hours if needed for moderate pain or fever. 30 tablet 025 2024 QUEtiapine (SEROquel) 200 MG tabletIndicatio ns:Mood disorder ([facility]) TAKE 1 TABLET BY MOUTH AT BEDTIME 30 tablet 025 2024 Discontinued gabapentin (Neurontin) 100 MG capsuleIndicati ons:Thoracic back pain, unspecified back pain laterality, unspecified chronicity TAKE 2 CAPSULES BY MOUTH THREE TIMES DAILY IN THE MORNING, AT NOON AND AT BEDTIME 180 capsule 025 2024 Discontinued Hospital, Clinic, or Other Facility Administered Medication Ordered Dose Route Frequency Start Date End Date Status Insulin Lispro solution 14 UnitsIndications:Type 2 diabetes mellitus with diabetic microalbuminuria, with long-term current use of insulin ([facility]) 14 Units IJ Once 10/24/2024 10/24/2024 Ende [...] 2:27 PM EST): -gave number to call [facility] Healthcare maintenance 03/03/2023 Overview (02/19/2024): Pap: 2-18, HPV neg NIL-->overdue for repeat. Will schedule appointment today Mammogram: Pt missed multiple appointments--she needs to call to reschedule BMD: Routine age 65 LDLCT: Accepts referral to [facility] CRC: Has not complete previous GI referrals [...] Exam: 07/2023 Risk 1 Eye Exam: 06/2023 [facility] Lipid panel: 02/2023 Microalbumin:creatinine ratio: 42.5 [...] CGM sensor resent ?? Will refer to [facility] DM educator ?? Will hold off [...] ?? New BP kit sent to pharmacy termination clerk (current) use of insulin 06/26/2015 Chronic major depressive disorder, single episod e 05/23/2015 Overview (03/06/2023): - Seroquel 150mg every evening for help with sleep - Sertraline 50mg - Psychiatric history unclear. ?bipolar disorder - Hx of suicidal ideation and psych hospitalization - Referred to [facility], per chart note, contact attempt was made. Patient needs to call back Assessment & Plan (06/21/2023 6:33 AM EST): - Resubmit referral to ([facility]) - Contact HC if sx worsen or experiencing thoughts of SI or self harm. Pt has [facility] crisis contact information Hyperlipidemia 05/23/2015 Hypothyroidism 05/23/2015 [...] through. Provided patient and her daughter with [facility] pulmonology phone number to call and schedule initial appointment. - ED precautions reviewed Assessment & Plan (03/06/2023 1:10 PM EDT): ?? Persistent diffuse wheezing ?? Will re-submit referral to pulmonology Resolved Problems Problem Noted Date Diagnosed Date Resolved Date Microalbuminuria due to type 2 diabetes mellitus ([facility]) 04/25/2023 02/19/2024 Periodontal disease 10/23/2022 03/03/20 Dental caries 10/23/2022 03/03/2023 History of severe acute resp iratory syndrome coronavirus 2 (SARS-CoV-2) disease 09/24/202002/18 Thoracic back pain 01/18/2018 3 Allergic rhinitis 06/02/2016 03/06/2023 Encounters * This document contains information received from the source organization and may not represent a complete record from that organization. Date Type Department Care Team Description 10/26/2024 Refill [facility] [address] [place] [phone] [facility] Mood disorder ([facility]); Thoracic back pain, unspecified back pain laterality, unspecified chronicity 10/26/2024 Telephone [facility] [address] [place], [place] [phone] Desirae Taylor, GER[place]IA VILLAGRAN PA 10/24/2024 1:00 PM EDT Office Visit [facility] [address] [place] [address] [facility] Type 2 diabetes mellitus with diabetic microalbuminuria, with long-term current use of insulin ([facility]) (Primary Dx); Cystitis; Chronic diarrhea; Dyspepsia; Severe persistent asthma, unspecified whether complicated; Essential hypertension; Dietary counseling; Exercise counseling 10/24/2024 Orders Only [facility] [address] [place] [address] [place] Mar[facility] 10/24/2024 Travel 10/21/2024 Telephone [facility] [address] [place] [address] Ellyn Solo, OD 10/18/2024 Telephone [facility] [address] [place] [address] [facility] 10/17/2024 Patient Outreach [facility] [address] [place], [place] [phone] [facility] [facility] Pre-visit Planning ([facility] unable to reach [facility] ) 09/23/2024 3:00 PM EST Office Visit [facility] [address] [place] [address] Laurence Parrish MD Adhesive capsulitis of left shoulder (Primary Dx); Mood disorder ([facility]) 09/23/2024 Refill [facility] [address] [place] [address] Lexx Christianson MD Mood disorder ([facility]); Thoracic back pain, unspecified back pain laterality, unspecified chronicity 08/16/2024 Refill [facility] [address] [place] [address] [facility] Mood disorder ([facility]); Thoracic back pain, unspecified back pain laterality, unspecified chronicity 08/13/2024 Refill [facility] [address] [place] [address] [place] [facility] Thoracic back pain, unspecified back pain laterality, unspecified chronicity; Mood disorder ([facility]/HCC) 08/08/2024 Telephone [facility] [address] [place] [address] Lisset Varner, GERMANIA Care Management (C3 TC #3-case closed) from Last 3 Months Immunizations Name Administration [...] 03/25/2021,02/23/20 21 Pfizer Covid-19 Vaccine 12+ 07/18/2024, 3 Pneumococcal Conjugate PCV 20 07/20/2023 Pneumococcal Polysaccharide [...] your housing situation today? I have anmol sing 03/18/[address] you li [...] Screening 03/18/2025 03/18/2024 Eye Exam 06/25/2025 06/25/2023, 04/2023, 06/25/2023, Additional history exists Lipid Panel 07/11/2025 07/11/2024, 0703/2023, 01/03/2022 Depression Screening 07/18/2025 07/18/2024, 07/18/20 24 Diabetes: Foot Exam 07/18/2025 07/18/2024, 07/18/2024, 07/18/2024, Additional history exists Tobacco Screening 10/25/2025 10/25/2024 DTaP/Tdap/Td Vaccines (4 - Td or Tdap) [...] Procedure Name Priority Date/Time Associated Diagnosis Comments VITAMIN B12 Routine 10/24/2024 2:28 PM EDT CULTURE, URINE, ROUTINE Routine 10/24/2024 2:28 PM EDT Cystitis POCT GLUCOSE Routine 10/24/2024 1:47 PM EDT Type 2 diabetes mellitus with diabetic microalbuminuria, with long-term current use of insulin ([facility]) POCT GLYCATED HEMOGLOBIN, TOTAL Routine 10/24/2024 1:47 PM EDT Type 2 diabetes mellitus with diabetic microalbuminuria, with long-term current use of insulin ([facility]) XR SHOULDER 2+ VIEWS LEFT Routine 09/23/2024 [...] Recently Relevant to Health Maintenance Results * Culture, Urine, Routine (10/24/2024 2:28 PM EDT) Urine Urine specimen obtained by clean catch procedure / Unknown 10/24/2024 2:28 PM EDT 10/24/2024 3:58 PM EDT Comment:UACC Narrative [facility] - 10/26/2024 7:45 AM EDT Escherichia coli Quant > 100,000 cfu/mL Escherichia coli: Ampicillin 4(S) Escherichia coli: Cefazolin (Urine) <=1(S) Escherichia coli: Cefepime <=0.12(S) Escherichia coli: Ceftriaxone <=0.25(S) Escherichia coli: Ciprofloxacin <=0.06(S) Escherichia coli: Gentamicin <=1(S) Escherichia coli: Nitrofurantoin <=16(S) Escherichia coli: Trimethoprim/Sulfamethoxazole <=20(S) Specimen Source: Urine clean catch [facility] MICROBIOLOGY - GENERAL OR DERABLES Final Result Performing Organization Address [facility]/ZIP Co de Phone Number [facility] [address] [place] [phone] * (ABNORMAL) Vitamin B12 (10/24/2024 2:28 PM EDT) Vitamin B12 1,923(H) 200 - 900 pg/mL [facility] Comment:NORMAL 200-900 PG/ML INDETERMINATE 160-199 PG/ML DEFICIENT < 160 PG/ML 10/24/2024 2:28 PM EDT 10/24/2024 4:07 PM EDT [facility] BLOOD ORDERABLES Final Re sult Performing Organization Address City/[facility]/ZIP Co de Phone Number [facility] [address] [place] [address] [place] [phone] * (ABNORMAL) POCT HGB A1C (10/24/2024 1:47 PM EDT) [facility] Hemoglobin A1C 9.9(A) 4.0 - 6.0 % Blood 10/24/2024 1:47 PM EDT [facility] [employer] POINT OF CARE TEST ENTER/EDIT ORDERABLES Final Result * (ABNORMAL) POCT Glucose (10/24/2024 1:47 PM EDT) [facility] Glucose Blood, POC 500(A) 60 - 200 mg/dL Comment:[facility] Blood Capillary blood specimen / Unknown 10/24/2024 1:47 PM EDT [facility] POINT OF CARE TEST ENTER/EDIT ORDERABLES Final Result * XR Shoulder 2+ Views Left (09/23/2024 3:06 PM EST) Anatomical Region Laterality Modality Upper Extremities, Shoulder Left Radi ographic Imaging 09/23/2024 3:06 PM EST Narrative 09/23/2024 3:26 PM EST ?[facility] ?[address] ?[place] [address] ?XRay Report ? Signed ? Patient: Stefan,Shannon ?MR#: [id number] ?? [id number] ? : 1970 ?Acct:[id number] ? Age/Sex: 54 / F ?ADM Date: 09/23/25 ? Loc: HO.HHCX ? Attending Dr: Laurence Parrish MD ? Ordering Physician: Laurence Parrish MD ?? Date of Service: 09/23/24 ?? Procedure(s): XR shoulder LT min 2V ?? Accession Number(s): [id number] ? cc: Laurence Parrish MD ? EXAMINATION: [...] ??Dereje Veloz MD ??09/23/2024 03:24 PM EST ?? RP ? Dictated By: ?Dereje Veloz MD ? Signed By: ?<Electronically signed by Dereje Veloz MD in OV> ?09/23/24 1524 ? DD/ 1506 ? TD/TT: 09/23/24 1521 ? Aircraft Powerplant Repairer: ? Procedure Note Rita, Image - 09/23/[address] [address] XRay Report Signed Patient: Pamela Aviles#: [id number] : 1970Acct:[id number] Age/Sex: 54 / FADM Date: 09/23/24 Loc: HO.HHCX Attending Dr: Laurence Parrish MD Ordering Physician: Laurence Parrish MD Date of Service: 09/23/24 Procedure(s): XR shoulder LT min 2V Accession Number(s): [id number] cc: Laurence Parrish MD EXAMINATION: XR SHOULDER [...] by: Dereje Veloz MD 09/23/2024 03:24 PM [facility] Dictated By: Dereje Veloz MD Signed By: <Electronically signed by Dereje Veloz MD in OV> 09/23/24 1524 DD/ 1506 TD/TT: 09/23/24 1521 Aircraft Powerplant Repairer: Laurence Parrish MD IMG XR PROCEDURES Final Re sult * (ABNORMAL) Lipid Panel, Standard (07/11/2024 3:30 PM EST) Triglycerides 184(H) <150 mg/dL [facility] Comment:Desirable Triglyceri de: less than 150 mg/dLBorderline High Triglyceride 150-199 mg/dLHigh Triglyceride: 200-499 mg/dLVery High Triglyceride: greater than or equal to 5OO mg/dL Cholesterol 123 <200 mg/dL [facility] Comment:Desirable Cholestero l: less than 200 mg/dLBorderline High Cholesterol: 200-239 mg/dLHigh Cholesterol: greater than 239 mg/dL LDL Cholesterol Calculated 46 <100 mg/dL [facility] Comment:Desirable LDL: less than 100 mg/dLNear Optimal/Above Optimal LDL: 110- 129 mg/dLBorderline High LDL: 130-159 mg/dLHigh LDL: 160-189 mg/dLVery High LDL: greater than or equal to 190 mg/dL HDL Cholesterol 41 >40 mg/dL [facility] Comment:Desirable HDL: great er than 40 mg/dL Note: This HDL assay may give artificially low results in patients with liver disease. 07/11/2024 3:30 PM EST 07/11/2024 3:55 PM EST [facility] [employer] LAB BLOOD ORDERABLES Final Re sult [facility] [address] [place] [phone] * 3D DIGITAL TREMAYNE SCR MAMMO 1 (08/16/2019 11:01 AM EST) Anatomical Region Laterality Modality Breast Bilateral Mammography 08/16/2019 11:0 1 AM EST Narrative 08/16/2019 11:02 AM EST Refer to the Notes tab for result details [facility] Procedure: 3D DIGITAL TREMAYNE SCR MAMMO 1 Procedure Note Provider, MD Yessenia - 11/08/2022 Refer to the Notes tab for result details [facility] Procedure: 3D DIGITAL TREMAYNE SCR MAMMO 1 Mehreen Sorto NP IMG BI PROCEDURES Final Result * Hm Colonoscopy (06/28/2019 8:54 AM EST) Historical Provider HEALTH MAINTENANCE Final Result * HPV mRNA E6/E7 (05/11/2018 10:15 AM EDT) HPV mRNA E6/E7 Not Detected NOT DETECTED [facility] Comment: This test was performed using the APTIMA(R) HPV Assay ([employer] This assay detects E6/E7 viral messenger RNA (mRNA) from 14 high-risk HPV types (16,18,31,33,35,39,45,51, 52,56,58,59,66,68). For additional information please refer to: http://education.Mendix/faq/LHB678u2 (This link is being provided for informational/ educational purposes only.) The analytical performance characteristics of this assay have been determined by [employer] [place], [place]. The modifications have not been cleared or approved by the FDA. This assay has been validated pursuant to the CLIA regulations and is used for clinical purposes. Test Performed by [facility], [employer] ([facility], [address] [place] [address] Messi Bowen M.D., Ph.D., Director of Laboratories , CLIA [id number] Please note: ??Effective 04/28/2016, HPV testing will be performed using [employer]'s APTIMA test which targets mRNA. Detecting mRNA instead of DNA, as in older methods, offers significant improvements in specificity. 05/11/2018 10:1 5 AM EDT us Mehreen Sorto NP HISTORICAL/NON ORDERABLE LABS Fi nal Result [facility] Anywhere [address] from Last 3 Months or Most Recently Relevant to Health Maintenance Insurance [place] [facility] MEDICAID STAND ADULT Care Teams Hand Cultivator Relationship Specialty Start Date End Date [place], Marilu, [employer]KER [employer] [address] [place], [place] [phone] PCP - General Family Medicine 01/02/22 Raissa To, PharmD [address] [place] [address] [phone] Pharmacist Internal Medicine 06/17/24
--- OUTSIDE RECORDS SUMMARY | 2024-10-26 18:54 | XMS_ITS | Encounter Summary ---
Author Organization [employer] Address [address] [facility] [place] [place] [address] Care Team Providers Care Bundle Packer Name Role Phone Marilu Reynoso FISH PEDDLER Primary Care Provider [phone] Raissa To PharmD Unavailable [phone] Encounter Details Date Type Department Care Team (Late st Contact Info) Description 11/25/2023 Orders Only [facility] [address] [place] [address] Provider, MD Yessenia Social History Tobacco Use [...] documented as of this encounter Care Teams Bundle Packer Relationship Specialty Start Date End Date Marilu Reynoso FNP [address] [place] [address] PCP - General Family Medicine 01/02/22 Raissa To PharmD [address] [place] [address] Pharmacist Internal Medicine 06/17/24 Lisset Varner Team Leader 04/08/24 07/08/24 documented as of this encounter
--- OUTSIDE RECORDS SUMMARY | 2024-10-26 18:54 | XMS_ITS | Encounter Summary ---
Author Organization [employer] Address [address] [facility] [address] [place] [address] Care Team Providers Care Manufacturing Accountant Name Role Phone [place] [facility] Primary Care Provider Raissa To PharmD Unavailable [phone] Reason for Visit * Reason Comments Pre-visit Planning SDOH unable to reach LVM Encounter Details Date Type Department Care Team (Late st Contact Info) Description 10/17/2024 Patient Outreach [facility] [address] [place], [place] [phone] [place], [facility] [address] [place] [address] Pre-visit Planning (SDOH unable to reach LVM [...] documented as of this encounter Care Teams Manufacturing Accountant Relationship Specialty Start Date End Date Marilu Reynoso FNP [address] [place] [address] PCP - General Family Medicine 01/02/22 Raissa To, Rafia [address] [place] [address] Pharmacist Internal Medicine 06/17/24 documented as of this encounter
--- OUTSIDE RECORDS SUMMARY | 2024-10-26 18:54 | XMS_ITS | Encounter Summary ---
Author Organization [employer] Address [address] [facility] [address] [place] [address] Care Team Providers Care Machine Lacer Name Role Phone Marilu Reynoso CONSTRUCTION PROJECT COORDINATOR Primary Care Provider [phone] Raissa To PharmD Unavailable [phone] Reason for Visit * Reason Onset Date Comments SPARKLE TALAVERA 10/26/2024 Encounter Details Date Type Department Care Team (Late st Contact Info) Description 10/26/2024 Telephone [facility] MED[facility] [address] [place], [place] [phone] Desirae Taylor, RN [address] [place], [place] [phone] SPARKLE TALAVERA Social History Tobacco Use Types Packs/Day Years [...] encounter Miscellaneous Notes * Telephone Encounter - Desirae Taylor RN - 10/26/2024 2:24 PM EDT Continuous Glucose Monitor Prior Authorization Documentation: CGM PA initiated for: CGM DEVICE: Freestyle Stevo Insurance: [employer] PA [facility]. Patient's preferred pharmacy: [facility] - [place], [place] - 230 [facility] 230 [facility] [phone] [facility][id number] - [place], [place] - [address] [facility] 400 [facility] [address] CGM PA should be approved by: 11/02/24 Will call pt. To schedule initiation appt. When notified of approval documented in this encounter Plan of Treatment Not on file documented as of this encounter Visit Diagnoses Not on filedocumented in this encounter Additional Health Concerns Assessment Noted Time PHQ-9 Depression Total Score: 9 07/18/20 24 1:40 PM EST documented as of this encounter Care Teams Machine Lacer Relationship Specialty Start Date End Date Marilu Reynoso FNP [address] [place] [address] PCP - General Family Medicine 01/02/22 Raissa To, Rafia [address] [place] [address] Pharmacist Internal Medicine 06/17/24 documented as of this encounter
--- OUTSIDE RECORDS SUMMARY | 2024-10-26 18:54 | XMS_ITS | Encounter Summary ---
Author Organization [employer] Address 75 [facility] 7t [place] [address] Care Team Providers Care Therapeutic Recreation Specialist Name Role Phone [facility] Primary Care Provider [phone] Raissa To PharmD Unavailable [phone] Reason for Visit * Reason Comments Med Refill Encounter Details Date Type Department Care Team (Late st Contact Info) Description 01/20/2024 Refill [facility] MEDICINE [address] [place], [place] [phone] [facility] 230 [place], [place] [phone] Thoracic back pain, unspecified back pain laterality, [...] documented as of this encounter Care Teams Therapeutic Recreation Specialist Relationship Specialty Start Date End Date Marilu Reynoso FNP [address] [place] [address] PCP - General Family Medicine 01/02/22 Raissa To PharmD [address] [place] [address] Pharmacist Internal Medicine 06/17/24 Lisset Varner Inspector Packager 04/08/24 07/08/24 documented as of this encounter
--- OUTSIDE RECORDS SUMMARY | 2024-10-26 18:54 | XMS_ITS | Encounter Summary ---
Author Organization [employer] [facility] Address [address] [place] [address] 7t [place] [address] Care Team Providers Care Vulcanized Fiber Unit Operator Name Role Phone Marilu Reynoso Primary Care Provider [phone] Raissa To PharmD Unavailable [phone] Reason for Referral * Consultation (Routine) - Pending Review Specialty Diagnoses / Procedures Referred By Shane hubbard Referred To Contact Pulmonary Disease Diagnoses Severe persistent asthma, unspecified whether complicated Marilu Reynoso FNP [address] [place] [address] Phone: tel: fax: Referral ID Status Reason Start Date Expiration Date Visits Requested Visits Authorized [id number] Pending Review Specialty Services Required 10/24/2024 10/24/2025 1 1 * Consultation (Routine) - Pending Review Specialty Diagnoses / Procedures Referred By Shane hubbard Referred To Contact Gastroenterology Diagnoses Chronic diarrhea Marilu Reynoso FNP [address] [place] [address] Phone: tel: fax: Referral ID Status Reason Start Date Expiration Date Visits Requested Visits Authorized [id number] Pending Review Specialty Services Required 10/24/2024 10/24/2025 1 1 Reason for Visit * Reason Comments Follow-up Encounter Details Date Type Department Care Team (Nereida st Contact Info) Description 10/24/2024 1:00 PM EDT Office Visit [facility] MEDICINE [address] [place] [address] AngelesMarilu MACHINE OILER 230 [place] [address] Type 2 diabetes mellitus with diabetic microalbuminuria, with long-term current use of insulin ([facility]) (Primary Dx); Cystitis; Chronic diarrhea; Dyspepsia; Severe persistent asthma, unspecified whether complicated; Essential hypertension; Dietary counseling; Exercise counseling Social History Tobacco Use Types Packs/Day Years [...] Referral to pulmonology documented in this encounter Progress Notes * CANDIS Boateng - 10/24/2024 1:00 PM EDT SUBJECTIVE: Shannon Aviles is a 54 y.o. year old female with HTN, T2DM, hypothyroid, HLD and asthma complicated by inconsistent primary care and SDOH concerns who presents for diabetes follow up . Acute Concerns: Diarrhea-occurring daily x 4 months with occasional episodes of incontinence. Also reports epigastric pain/dyspepsia ---> was previously referred to GI for abdominal pain and colon cancer screening. Does not appear that patient ever went. She has had about a 10 pound weight loss over the past month. No blood in stool. No nausea or vomiting. No fever Darkening of urine, mild dysuria times several days Interval History Care management Case was closed due to lost contact with patient [id number] compliance with trulicity 4.5mg; insulin sliding scale three times daily. 24 units. Jardiance 10mg daily. Has not been taking insulin > 1 week due to her glucometer being broken. She states that when she is using her insulin her Premeal sugars are around 150. Social History Social History Narrative Tobacco Use: 1PPD ETOH: Occasional Marijuana Use: None Other substance use: None Daughter is BACKHAUL DRIVER Patient Active Problem List Diagnosis Chronic major depressive disorder, single episode Essential hypertension Hyperlipidemia Hypothyroidism Left anterior fascicular block Type 2 diabetes mellitus (CMS/HCC) Severe persistent asthma Prolonged QT interval ocean transportation intermediary (current) use of insulin (CMS/HCC) Edentulous maxilla Healthcare maintenance Tobacco use Mood disorder (CMS/HCC) Retained dental root Dental plaque Excessive attrition of teeth, limited to enamel Recurrent major depressive disorder (CMS/HCC) Adhesive capsulitis of left shoulder Past Surgical History: Procedure Laterality Date CHOLECYSTECTOMY PROSTHODONTIC PROCEDURE Family History Problem Relation Name Age of Onset Hypertension Mother Asthma Mother Diabetes Mother Stroke Mother's Sister 21 Breast cancer Maternal Grandmother Breast cancer Paternal Grandmother Colon cancer Paternal Grandfather Review of Systems Constitutional: Negative for fatigue, fever and unexpected weight change. Eyes: Negative for visual disturbance. Respiratory: Negative for apnea, chest tightness and shortness of breath. Cardiovascular: Negative for chest pain, palpitations and leg swelling. Gastrointestinal: Positive for diarrhea. Genitourinary: Positive for dysuria. Neurological: Negative for dizziness, light-headedness and headaches. OBJECTIVE: There were no vitals filed for this visit. Physical Exam Constitutional: General: She is not in acute distress. Appearance: Normal appearance. HENT: Head: Normocephalic and atraumatic. Right Ear: External ear normal. Left Ear: External ear normal. Nose: Nose normal. Eyes: Conjunctiva/sclera: Conjunctivae normal. Cardiovascular: Rate and Rhythm: Normal rate and regular rhythm. Heart sounds: Normal heart sounds. Pulmonary: Effort: Pulmonary effort is normal. Breath sounds: Normal breath sounds. Abdominal: General: Bowel sounds are normal. There is no distension. Palpations: Abdomen is soft. There is no mass. Tenderness: There is no right CVA tenderness or left CVA tenderness. Skin: General: Skin is warm and dry. Neurological: General: No focal deficit present. Mental Status: She is alert and oriented to person, place, and time. Psychiatric: Mood and Affect: Mood normal. Behavior: Behavior normal. ASSESSMENT/PLAN Chronic diarrhea/epigastric pain - Will resubmit referral to GI - Update labs plus fecal calprotectin, FOBT and H. pylori - Okay to trial famotidine as needed for reflux Dysuria -UA in office positive nitrites, positive blood - Empiric treatment with Macrobid - Urine sample in office was not enough for urine culture send out. Patient instructed to hydrate and will stop by the lab to drop off sample for culture prior to starting antibiotics - ED precautions advised T2DM Lab Results Component Value Date HGBA1C 9.9 (A) 10/24/2024 HGBA1C 8.3 (A) 06/15/2024 HGBA1C 11.9 (A) 02/17/2024 Lab Results Component Value Date MICROALBUR 32.0 07/11/2024 CREATININE 1.00 07/11/2024 - BS HHH in office; negative ketones--> decreased to 392 status post 14 units lispro as per patient's sliding scale - Will hold off on adjusting insulin regimen as I suspect A1c increase in blood sugar elevations are secondary to poor compliance. - New glucometer and supplies sent to pharmacy - Patient accepts CGM. Will order today with RN follow-up for teaching - Continue Trulicity 4.5 - Continue Jardiance 10 - Continue Lantus 24 units nightly - Continue lispro per sliding scale 131-180=6units, 181-240=8 units, 241-300=10 units, 301-350=12 units, >350=14 units On aspirin: Yes, for primary prevention On statin: Yes (rosuvastatin 40mg) On ACEI/ARB: Yes (olmesartan 20mg) Foot exam: 07/2024 Risk 0 Eye exam: 06/2023 Hypertension - Blood pressure elevated in office. Patient did not take her medications today. Denies CP/SOB/headache/blurred vision -BP P previously well-controlled - Patient was instructed to take medications as soon as she gets home and monitor BP Reviewed ED precautions to include chest pain, shortness of breath, severe headache, sudden vision changes or BP >=180/>=120 mmHg. Contact HC if three or more BP readings >140/90. Severe persistent asthma -Lung sounds with persistent wheezing consistent with baseline. Patient denies shortness of breath -Negative chest x-ray 06/2024 - Prescribed Trelegy Ellipta and Spiriva, Singulair. Degree of compliance is unclear. - Has been referred multiple times to pulmonology but has always missed appointments. Will resubmitreferral with PT 1 - ED precautions advised Follow Up: RN visit for CGM start 1 month CDM Diagnosis Plan 1. Type 2 diabetes mellitus with diabetic microalbuminuria, with long-term current use of insulin ([facility]) POCT HGB A1C POCT Glucose Insulin Lispro solution 14 Units Alcohol Swabs (Alcohol Prep) pads Lancets 33G [facility] Blood Glucose Monitoring Suppl (GNP Easy Touch Glucose Meter) device glucose blood test strip insulin pen needle 32G x 4 mm [facility] Continuous Glucose Cleaning And Maintenance Worker (FreeStyle Stevo 3 Mcgregor) device Continuous Glucose Sensor (FreeStyle Stevo 3 Plus Sensor) [facility] glucose blood (FreeStyle Precision Dylan Test) test strip 2. Cystitis Culture, Urine, Routine Culture, Urine, Routine nitrofurantoin, macrocrystal-monohydrate, (Macrobid) 100 MG capsule 3. Chronic diarrhea Calprotectin, Stool Referral to Gastroenterology Calprotectin, Stool Referral to Gastroenterology Fecal Globin by Immunochemistry Fecal Globin by Immunochemistry 4. Dyspepsia Helicobacter pylori Antigen, EIA, Stool Helicobacter pylori Antigen, EIA, Stool famotidine (Pepcid) 20 MG tablet 5. Severe persistent asthma, unspecified whether complicated Referral to Pulmonology Referral to Pulmonology 6. Essential hypertension Current Outpatient Medications on File Prior to Visit Medication Sig Dispense Refill acetaminophen (Tylenol) 500 MG tablet Take 2 tablets by mouth in the morning and 2 tablets at noon and 2 tablets in the evening and 2 tablets before bedtime. albuterol (2.5 MG/3ML) 0.083% nebulizer solution INHALE 3 ML NEBULIZER EVERY 4 HOURS NEEDED FOR WHEEZING 90 mL 3 albuterol (Ventolin HFA) 108 (90 Base) MCG/ACT inhaler INHALE 2 PUFFS BY MOUTH EVERY 4 TO 6 HOURS NEEDED 18 g 3 Alcohol Swabs (Alcohol Prep) 70 % pads USE TO CLEAN SKIN BEFORE INJECTION DIRECTED 100 each 11 aspirin (Aspirin Adult Low Strength) 81 MG EC tablet TAKE 1 TABLET BY MOUTH EVERY MORNING 90 tablet3 Blood Pressure kit Check bp 1-2 times per day. 1 kit 0 Continuous Glucose Cleaning And Maintenance Worker (FreeStyle Stevo 2 Mcgregor) device For monitoring interstitial glucose every 8 hours and as needed 1 each 0 Continuous Glucose Sensor (FreeStyle Stevo 2 Sensor) misc Test blood sugar every 8 hours and as needed 2 each 3 D3 Super Strength 50 MCG (2000 UT) capsule TAKE 1 CAPSULE BY MOUTH EVERY MORNING 90 capsule 3 Diclofenac Sodium 1 % gel Apply topically. Apply 2 gram by topical route 3 times every day to the affected areas as needed for pain diphenoxylate-atropine (Lomotil) 2.5-0.025 MG tablet TAKE 1 TABLET ORALLY 2 TIMES DAILY NEEDED FOR DIARRHEA empagliflozin (Jardiance) 10 MG Take 1 tablet (10 mg) by mouth Once per day. 30 tablet 11 fexofenadine (Sheri) 180 MG tablet Take 1 tablet (180 mg) by mouth Once per day. 30 tablet 11 fluticasone (Flonase) 50 MCG/ACT nasal spray INSTILL 2 SPRAYS IN EACH NOSTRIL ONCE DAILY IN THE MORNING SHAKE GENTLY 48 g 0 gabapentin (Neurontin) 100 MG capsule TAKE 2 CAPSULES BY MOUTH THREE TIMES DAILY IN THE MORNING, ATNOON AND AT BEDTIME 180 capsule 0 glucose blood (FREESTYLE LITE) test strip USE DIRECTED TO TEST BLOOD SUGAR FOUR TIMES DAILY 100 strip 11 glucose blood (FreeStyle Precision Dylan Test) test strip Test blood sugar every 8 hours and as needed 100 each 11 ibuprofen 400 MG tablet Take 400 mg by mouth every 6 (six) hours. [] ibuprofen 600 MG tablet Take 1 tablet (600 mg) by mouth every 8 (eight) hours if needed for moderate pain or fever. 30 tablet 0 insulin glargine (Lantus SoloStar) 100 UNIT/ML pen Inject subcutaneously 24 units once daily insulin lispro (HumaLOG KWIKPEN) 100 UNIT/ML injection inject by subcutaneous route per the following sliding scale before meals; do not administer if you don't eat. Sliding scale: 131-180=6units, 181-240=8 units, 241-300=10 units, 301-350=12 units, >350=14 units 100 mL 11 insulin pen needle (UltiGuard SafePack Pen Needle) 32G x 4 mm misc USE DIRECTED WITH INSULIN 100each 11 levothyroxine (Synthroid, Levoxyl) 75 MCG tablet TAKE 1 TABLET BY MOUTH EVERY MORNING 90 tablet 3 Methylcobalamin 1 MG chewable tablet Chew 2 tablets in the morning. montelukast (Singulair) 10 MG tablet TAKE 1 TABLET BY MOUTH EVERY EVENING DIRECTED 90 tablet 3 nicotine (Nicoderm, Step 1) 21 MG/24HR patch APPLY 1 PATCH TRANSDERMALLY DAILY nicotine polacrilex (Nicorette) 4 MG gum chew 1 piece of gum by oral route every 1-2 hours as needed for weeks 1-6, then 1 piece every 2-4 hours weeks 7-9, then 1 piece every 4-8 hours weeks 10-12. olmesartan (BENIcar) 20 MG tablet TAKE 1 TABLET BY MOUTH EVERY MORNING 90 tablet 3 omeprazole (PriLOSEC) [address] capsule TAKE 1 CAPSULE BY MOUTH EVERY MORNING BEFORE A MEAL 90 capsule 3 predniSONE (Deltasone) 20 MG tablet 2 tabs po daily for 5 days 10 tablet 0 QUEtiapine (SEROquel) 200 MG tablet TAKE 1 TABLET BY MOUTH AT BEDTIME 30 tablet 0 rosuvastatin (Crestor) 40 MG tablet TAKE 1 TABLET BY MOUTH EVERY MORNING 90 tablet 3 sertraline (Zoloft) 50 MG tablet TAKE 1 TABLET BY MOUTH EVERY MORNING 90 tablet 3 Spacer/Aero-Holding Chambers device Use it every 4-6 hrs tiotropium (Spiriva HandiHaler) [address] 1 capsule (18 mcg) into inhaler andinhale in the morning. Place into inhaler and inhale. 30 capsule 11 traMADol (Ultram) 50 MG tablet Take 1 tablet by mouth every 6 (six) hours. Trelegy Ellipta 100-62.5-25 MCG/ACT aerosol powder INHALE 1 PUFF BY MOUTH EVERY DAY AT THE SAME TIME IN THE MORNING 60 each 2 TRUEplus Lancets 33G misc USE DIRECTED TO TEST BLOOD SUGAR FOUR TIMES DAILY 100 each 11 Trulicity 4.5 MG/0.5ML solution auto-injector INJECT ONE PEN (= 4.5MG) SUBCUTANEOUSLY ONCE A WEEK DIRECTED No current facility-administered medications on file prior to visit. Beninese Translation: Provided by [facility] staff member JOSÉ MIGUEL Patel documented in this encounter Plan of Treatment Scheduled Orders Name Type Priority Associated Diagnoses Orde r Schedule Helicobacter pylori??Antigen , EIA, Stool Lab Routine Dyspepsia Expected: 10/24/2024, Expires: 10/24/2025 Calprotectin, Stool Lab Routine Chronic diarrhea Expected: 10/24/2024, Expires: 10/24/2025 Fecal Globin by Immunochemistry Lab Routine Chronic diarrhea Expected: 10/25/2024 (Approximate), Expires: 10/25/2025 Scheduled Referrals Name Type Priority Associated Diagnoses Order Schedule Referral to Gastroenterology Outpatient Referral Routine Chronic diarrhea Expected: 10/24/2024 (Approximate), Expires: 10/24/2025 Referral to Pulmonology Outpatient Referral Routine Severe persistent asthma, unspecified whether complicated Expected: 10/24/2024 (Approximate), Expires: 10/24/2025 documented as of this encounter Procedures Procedure Name Priority Date/Time Associated Diagnosis Comments CULTURE, URINE, ROUTINE Routine 10/24/2024 2:28 PM EDT Cystitis POCT GLYCATED HEMOGLOBIN, TOTAL Routine 10/24/2024 1:47 PM EDT Type 2 diabetes mellitus with diabetic microalbuminuria, with long-term current use of insulin ([facility]) POCT GLUCOSE Routine 10/24/2024 1:47 PM EDT Type 2 diabetes mellitus with diabetic microalbuminuria, with long-term current use of insulin ([facility]) documented in this encounter Results * Culture, Urine, Routine (10/24/2024 2:28 PM EDT) Urine Urine specimen obtained by clean catch procedure / Unknown 10/24/2024 2:28 PM EDT 10/24/2024 3:58 PM EDT Comment:[facility] - 10/26/2024 7:45 AM EDT Escherichia coli Quant > 100,000 cfu/mL Escherichia coli: Ampicillin 4(S) Escherichia coli: Cefazolin (Urine) <=1(S) Escherichia coli: Cefepime <=0.12(S) Escherichia coli: Ceftriaxone <=0.25(S) Escherichia coli: Ciprofloxacin <=0.06(S) Escherichia coli: Gentamicin <=1(S) Escherichia coli: Nitrofurantoin <=16(S) Escherichia coli: Trimethoprim/Sulfamethoxazole <=20(S) Specimen Source: Urine clean catch [facility] LAB MICROBIOLOGY - GENERAL OR DERABLES Final Result Performing Organization Address City/State/[facility] Co de Phone Number [facility] [address] [place] [phone] * (ABNORMAL) POCT Glucose (10/24/2024 1:47 PM EDT) Glucose Blood, POC 500(A) 60 - 200 mg/dL Comment:[facility] Blood Capillary blood specimen / Unknown 10/24/2024 1:47 PM EDT Result [facility] POINT OF CARE TEST ENTER/EDIT ORDERABLES Final Result * (ABNORMAL) POCT HGB A1C (10/24/2024 1:47 PM EDT) Hemoglobin A1C 9.9(A) 4.0 - 6.0 % Blood 10/24/2024 1:47 PM EDT [facility] POINT OF CARE TEST ENTER/EDIT ORDERABLES Final Result documented in this encounter Visit Diagnoses Diagnosis Type 2 diabetes mellitus with diabetic microalbuminuria, with long-term current use of insulin ([facility])- Primary Cystitis Unspecified cystitis Chronic diarrhea Diarrhea Dyspepsia Dyspepsia and other specified disorders of function of stomach Severe persistent asthma, unspecified whether complicated Essential hypertension Unspecified essential hypertension Dietary counseling Dietary surveillance and counseling Exercise counseling documented in this encounter Administered Medications Inactive Administered Medications - up to 3 most recent administrations Medication Order MAR Action Action Date Dose Rate Site Insulin Lispro solution 14 Units 14 Units, Injection, Once, On 10/24/24 at 1345, For 1 doseIndications:Type 2 diabetes mellitus with diabetic microalbuminuria, with long-term current use of insulin ([facility]) Given 10/24/2024 1:45 PM EDT 14 Units documented in this encounter Additional Health Concerns Assessment Noted Time PHQ-9 Depression Total Score: 9 07/18/20 24 1:40 PM EST documented as of this encounter Care Teams Vulcanized Fiber Unit Operator Relationship Specialty Start Date End Date Marilu Reynoso FNP [address] [place] [address] PCP - General Family Medicine 01/02/22 Raissa To, Rafia [address] [place] [address] Pharmacist Internal Medicine 06/17/24 documented as of this encounter
--- OUTSIDE RECORDS SUMMARY | 2024-10-26 18:54 | XMS_ITS | Encounter Summary ---
Author Organization [employer] Address [address] [facility] [address] [place] [address] Care Team Providers Care Belt Line Feeder Name Role Phone [place], [facility] Primary Care Provider [phone] Raissa To PharmD Unavailable [phone] Reason for Visit * Reason Onset Date Comments Results 09/11/2023 Encounter Details Date Type Department Care Team (Late st Contact Info) Description 09/11/2023 Telephone [facility] MEDICINE [address] [place], [place] [phone] [facility] 230 [place], [place] [phone] Results Social History Tobacco Use Types Packs/Day [...] documented as of this encounter Care Teams Belt Line Feeder Relationship Specialty Start Date End Date Marilu Reynoso FNP [address] [place] [address] PCP - General Family Medicine 01/02/22 Raissa To PharmD [address] [place] [address] Pharmacist Internal Medicine 06/17/24 Lisset Varner Pai Gow Manager 04/08/24 07/08/24 documented as of this encounter
--- OUTSIDE RECORDS SUMMARY | 2024-10-26 18:54 | XMS_ITS | Encounter Summary ---
Author Organization [employer] Address [address] 7t [place] [address] Care Team Providers Care Crane Oiler Name Role Phone Marilu Reynoso DOUBLE CORNER CUTTER Primary Care Provider [phone] Raissa To PharmD Unavailable [phone] Encounter Details Date Type Department Care Team (Late st Contact Info) Description 10/21/2024 Telephone [facility] [address] [place], [place] [phone] Edil, Ellyn, OD [address] [place] [address] Social History Tobacco Use Types Packs/Day Years [...] documented as of this encounter Care Teams Crane Oiler Relationship Specialty Start Date End Date Marilu Reynoso FNP [address] [place] [address] PCP - General Family Medicine 01/02/22 Raissa To PharmD [address] [place] [address] Pharmacist Internal Medicine 06/17/24 documented as of this encounter
--- OUTSIDE RECORDS SUMMARY | 2024-10-26 18:54 | XMS_ITS | Encounter Summary ---
Author Organization [employer] Address [address] [facility] 7t [place] [address] Care Team Providers Care Tourist Agent Name Role Phone Marilu Reynoso AERIAL ADVERTISER Primary Care Provider Raissa To PharmD Unavailable [phone] Reason for Visit * Reason Comments Med Refill Encounter Details Date Type Department Care Team ([facility] Contact Info) Description 06/08/2023 Telephone [facility] MEDICINE [address] [place], [place] [phone] Name, MD Lexx [address] [place], [place] [phone] Med Refill Social History Tobacco Use Types [...] EST ----- Would you mind setting up [facility] pul[facility] appointment for patient? documented in this encounter Plan of Treatment Not on file documented as of this encounter Visit Diagnoses Diagnosis Essential hypertension Unspecified essential hypertension documented in this encounter Additional Health Concerns Assessment Noted Time PHQ-9 Depression Total Score: 16 023 1:53 PM EDT documented as of this encounter Care Teams Tourist Agent Relationship Specialty Start Date End Date Marilu Reynoso FNP [address] [place] [address] PCP - General Family Medicine 01/02/22 Raissa To, ConsueloD [address] [place] [address] Pharmacist Internal Medicine 06/17/24 Lisset Varner Sales Promoter 04/08/24 07/08/24 documented as of this encounter
--- OUTSIDE RECORDS SUMMARY | 2024-10-26 18:54 | XMS_ITS | Encounter Summary ---
Author Organization [employer] Address [address] [facility] 7t [place] [address] Care Team Providers Care Stitch Burnisher Name Role Phone [place], [facility] Primary Care Provider [phone] Raissa To PharmD Unavailable [phone] Encounter Details Date Type Department Care Team (Late st Contact Info) Description 10/24/2024 Orders Only [facility] MEDICINE 230 [place], [place] [phone] [facility] [address] [place], [place] [phone] Social History Tobacco Use Types Packs/Day Years [...] VITAMIN B12 Routine 10/24/2024 2:28 PM EDT documented in this encounter Results * (ABNORMAL) Vitamin B12 (10/24/2024 2:28 PM EDT) Vitamin B12 1,923(H) 200 - 900 pg/mL [facility] Comment:NORMAL 200-900 PG/M L INDETERMINATE 160-199 PG/ML DEFICIENT < 160 PG/ML 10/24/2024 2:28 PM EDT 10/24/2024 4:07 PM EDT [facility] LAB BLOOD ORDERABLES Final Re sult [facility] [address] [place] [phone] documented in this encounter Visit Diagnoses Not on filedocumented in this encounter Additional Health Concerns Assessment Noted Time PHQ-9 Depression Total Score: 9 07/18/20 24 1:40 PM EST documented as of this encounter Care Teams Stitch Burnisher Relationship Specialty Start Date End Date Marilu Reynoso, WRECKING CAR DRIVER [address] [place] [address] PCP - General Family Medicine 01/02/22 Raissa To, Rafia [address] [place] [address] Pharmacist Internal Medicine 06/17/24 documented as of this encounter
--- OUTSIDE RECORDS SUMMARY | 2024-10-26 18:54 | XMS_ITS | Encounter Summary ---
Author Organization [employer] Address [address] 7t [place] [address] Care Team Providers Care Partnership Marketing Manager Name Role Phone Marilu Reynoso INFANTRY SENIOR SERGEANT Primary Care Provider [phone] Raissa To PharmD Unavailable [phone] Encounter Details Date Type Department Care Team [...] documented as of this encounter Care Teams Partnership Marketing Manager Relationship Specialty Start Date End Date Marilu Reynoso FNP 230 [place] [address] PCP - General Family Medicine 01/02/22 Raissa To, Rafia [address] [place] [address] Pharmacist Internal Medicine 06/17/24 documented as of this encounter
--- OUTSIDE RECORDS SUMMARY | 2024-10-26 18:54 | XMS_ITS | Encounter Summary ---
Author Organization [employer] [facility] Address [address] [place] [address] 7t [place] [address] Care Team Providers Care Cotton Stomper Name Role Phone Marilu Reynoso UNDERWEAR HEMMER Primary Care Provider [phone] Raissa To PharmD Unavailable [phone] Reason for Referral * Consultation (Routine) - Authorized Specialty Diagnoses / Procedures Referred By Shane hubbard Referred To Contact Pharmacy Diagnoses Type 2 diabetes mellitus with hyperglycemia, with long-term current use of insulin (CMS/HCC) Genesis Peacock MD 230 [place] [address] Phone: tel: fax: Referral ID Status Reason Start Date Expiration Date Visits Requested Visits Authorized [id number] Authorized Consult and Treat 06/19/2024 06/19/2025 6 6 Encounter Details Date Type Department Care Team (Late st Contact Info) Description 06/19/2024 Orders Only [facility] MEDICINE 230 [place] [address] Genesis Peacock MD 230 [place] [address] Type 2 diabetes mellitus with hyperglycemia, with [...] documented as of this encounter Care Teams Cotton Stomper Relationship Specialty Start Date End Date [place] CANDIS Michel 230 [place] [address] PCP - General Family Medicine 01/02/22 Raissa To, Rafia 230 [place] [address] Pharmacist Internal Medicine 06/17/24 Lisset Varner Facilities Technician 04/08/24 07/08/24 documented as of this encounter
--- OUTSIDE RECORDS SUMMARY | 2024-10-26 18:54 | XMS_ITS | Encounter Summary ---
Author Organization [employer] [facility] Address [address] [place] [address] 7t [place] [address] Care Team Providers Care Director Of Physical Education Name Role Phone [place] [facility] Primary Care Provider [phone] Raissa To PharmD Unavailable [phone] Reason for Visit * Reason Comments Med Refill Encounter Details Date Type Department Care Team ([facility] st Contact Info) Description 10/26/2024 Refill [facility] 230 [place], [place] [phone] [facility] 230 [place], [place] [phone] Mood disorder (CMS/HCC); Thoracic back pain, unspecified back pain laterality, [...] encounter Miscellaneous Notes * Telephone Encounter - Lynnette Tesfaye - 10/26/2024 3:27 PM EDT TC from pt requesting a med refill for medication QUEtiapine (SEROquel) 200 MG tablet gabapentin (Neurontin) 100 MG capsule. Pt need 90 days supply going to [place]. PCP DEB Reynoso documented in this encounter Plan of Treatment Not on file documented as of this encounter Visit Diagnoses Diagnosis Mood disorder (CMS/HCC) Unspecified episodic mood disorder Thoracic back pain, unspecified back pain laterality, unspecified chronicity documented in this encounter Additional Health Concerns Assessment Noted Time PHQ-9 Depression Total Score: 9 07/18/20 24 1:40 PM EST documented as of this encounter Care Teams Director Of Physical Education Relationship Specialty Start Date End Date Marilu Reynoso FNP [address] [place] [address] PCP - General Family Medicine 5/19/22 Raissa To, Rafia [address] [place] [address] Pharmacist Internal Medicine 06/17/24 documented as of this encounter
--- OUTSIDE RECORDS SUMMARY | 2024-10-26 18:54 | XMS_ITS | Encounter Summary ---
Author Organization [employer] Address [address] [facility] [address] 7t [place] [address] Care Team Providers Care Chaperon Name Role Phone [place], Marilu [facility] Primary Care Provider [phone] Raissa To PharmD Unavailable [phone] Reason for Visit * Reason Onset Date Comments Appointment Request 06/29/2024 Encounter Details Date Type Department Care Team (Late st Contact Info) Description 06/29/2024 Telephone [facility] MEDICINE 230 [place], [place] [phone] [place] Marilu [facility] [address] [place], [place] [phone] Appointment Request Social History Tobacco Use Types [...] documented as of this encounter Care Teams Chaperon Relationship Specialty Start Date End Date Marilu Reynoso FNP [address] [place] [address] PCP - General Family Medicine 01/02/22 Raissa To PharmD [address] [place] [address] Pharmacist Internal Medicine 06/17/24 Lisset Varner Medical Information Officer 04/08/24 07/08/24 documented as of this encounter
--- OUTSIDE RECORDS SUMMARY | 2024-10-26 18:54 | XMS_ITS | Encounter Summary ---
Author Organization [employer] Address [address] 7t [place] [address] Care Team Providers Care Media Relations Associate Name Role Phone Marilu Reynoso OFFICE MANAGER RECEPTIONIST Primary Care Provider [phone] Raissa To PharmD Unavailable [phone] Reason for Visit * Reason Onset Date Comments case back from lab?? 03/23/2024 Encounter Details Date Type Department Care Team (Late st Contact Info) Description 03/23/2024 Telephone [facility] ADULT DENTAL [address] [place], [place] [phone] Luiz Moody DDS 230 [place], [place] [phone] case back from lab?? Social History Tobacco [...] the past 12 months, has t he [employer], gas, oil or water [employer] threatened to shut off services in your [...] documented as of this encounter Care Teams Media Relations Associate Relationship Specialty Start Date End Date Marilu Reynoso FNP 230 [place] [address] PCP - General Family Medicine 01/02/22 Raissa To PharmD 230 [place] [address] Pharmacist Internal Medicine 06/17/24 Lisset Varner Chain Builder 04/08/24 07/08/24 documented as of this encounter
--- OUTSIDE RECORDS SUMMARY | 2024-10-26 18:54 | XMS_ITS | Encounter Summary ---
Author Organization [employer] [facility] Address [address] [facility] 7t [place] [address] Care Team Providers Care It Architecture Analyst Name Role Phone Marilu Reynoso FOAM CASTER Primary Care Provider [phone] Raissa To PharmD Unavailable [phone] Reason for Visit * Reason Onset Date Comments Appointment 10/21/2022 Encounter Details Date Type Department Care Team (Late st Contact Info) Description 10/21/2022 Telephone [facility] ADULT DENTAL 230 [place], [place] [phone] Luiz Moody DDS [address] [place], [place] [phone] Appointment Social History Tobacco Use Types Packs/Day [...] on filedocumented in this encounter Care Teams It Architecture Analyst Relationship Specialty Start Date End Date [facility] 230 [place] [address] PCP - General Family Medicine 01/02/22 Raissa To PharmD [address] [place] [address] Pharmacist Internal Medicine 06/17/24 Lisset Varner Avionics Systems Engineer 04/08/24 07/08/24 documented as of this encounter
--- OUTSIDE RECORDS SUMMARY | 2024-10-26 18:54 | XMS_ITS | Encounter Summary ---
Author Organization [employer] Address [address] [facility] [address] 7t [place] [address] Care Team Providers Care Delivery Room Clerk Name Role Phone [place] [facility] Primary Care Provider [phone] Raissa To PharmD Unavailable [phone] Reason for Visit * Reason Comments Med Refill Encounter Details Date Type Department Care Team ([facility] st Contact Info) Description 08/13/2024 Refill [facility] & PEDS [address] [place], [place] [phone] [facility] [address] [place] [address] Thoracic back pain, unspecified back pain laterality, [...] documented as of this encounter Care Teams Delivery Room Clerk Relationship Specialty Start Date End Date Marilu Reynoso FNP 230 [place] [address] PCP - General Family Medicine 01/02/22 Raissa To PharmD 230 [place] [address] Pharmacist Internal Medicine 06/17/24 documented as of this encounter
[2024-11-02 16:28] LABS: Calprotectin, Fecal 22 mcg/g
== END 2024-10-26 18:33 | disposition home or self-care (01) ==
LOC: HO.HHCLNP 18:32
PROVIDERS: Visit Provider Registered Nurse
DX: K52.9 Noninfective gastroenteritis and colitis, unspecified (principal); R10.13 Epigastric pain
CPT/HCPCS: 83993; 87338

== ENCOUNTER 2024-11-03 | Outpatient (REF) | payer MEDICAID, SELFPAY | END 2024-11-03 00:01 | disposition home or self-care (01) | LOC: HO.HHCLNP | PROVIDERS: Visit Provider Nurse Practitioner | DX: N30.00 Acute cystitis without hematuria (principal) | CPT/HCPCS: 87086 ==

== ENCOUNTER 2024-11-03 | Outpatient (REF) | payer MEDICAID, SELFPAY ==
[2024-11-05 10:34] LABS: C. trachomatis RNA TMA NOT DETECTED (NOT DETECTED); Candida glabrata RNA DETECTED (NOT DETECTED); Candida species RNA DETECTED (NOT DETECTED); N. gonorrhoeae RNA TMA NOT DETECTED (NOT DETECTED); Trichomonas vaginalis RNA NOT DETECTED (NOT DETECTED)
== END 2024-11-03 00:01 | disposition home or self-care (01) ==
LOC: HO.HHCLNP
PROVIDERS: Visit Provider Nurse Practitioner
DX: N89.8 Other specified noninflammatory disorders of vagina (principal)
CPT/HCPCS: 81513; 87481; 87491; 87591; 87661

== ENCOUNTER 2024-11-21 17:58 | Outpatient (REF) | payer MEDICAID, SELFPAY ==
--- OUTSIDE RECORDS SUMMARY | 2024-11-21 18:57 | XMS_ITS | Encounter Summary ---
Author Organization [employer] Address [address] 7t [place] [address] Care Team Providers Care Herb Counselor Name Role Phone [place], [facility] Primary Care Provider [phone] Raissa To PharmD Unavailable [phone] Reason for Visit * Reason Onset Date Comments Results 09/11/2023 Encounter Details Date Type Department Care Team (Late st Contact Info) Description 09/11/2023 Telephone [facility] MEDICINE 230 [place], [place] [phone] [facility] 230 [place], [place] [phone] Results Social History Tobacco Use Types Packs/Day [...] documented in this encounter Plan of Treatment Upcoming Encounters Date Type Department Care Team (Late st Contact Info) Description 01/11/2025 9:15 AM EDT Office Visit [facility] MEDICINE 230 [place] [address] Thayer, [place], PREPARATION PLANT SUPERVISOR 230 [place] [address] 02/15/2025 3:00 PM EDT Office Visit [facility] OPT[facility] [address] [place] [address] Edil, Ellyn, OD 230 [place] [address] 05/26/2025 1:00 PM EDT Office Visit [facility] ADULT DENTAL [address] [place] [address] Marlee Blanchard [address] [place] [address] documented as of this encounter Visit Diagnoses Not on filedocumented in this encounter Additional Health Concerns Assessment Noted Time PHQ-9 Depression Total Score: 16 023 12:28 PM EST documented as of this encounter Care Teams Herb Counselor Relationship Specialty Start Date End Date Marilu ReynosoCANDIS 230 [place] [address] PCP - General Family Medicine 01/02/22 Raissa To, ConsueloD [address] [place] [address] Pharmacist Internal Medicine 06/17/24 Lisset Varner Clinic Manager 04/08/24 07/08/24 documented as of this encounter
--- OUTSIDE RECORDS SUMMARY | 2024-11-21 18:57 | XMS_ITS | Encounter Summary ---
Author Organization [employer] Address [address] [facility] 7t [place] [address] Care Team Providers Care Maintenance Mechanic Supervisor Name Role Phone [place] [facility] Primary Care Provider [phone] Raissa To PharmD Unavailable [phone] Reason for Visit * Reason Comments Med Refill Encounter Details Date Type Department Care Team (Late st Contact Info) Description 01/20/2024 Refill [facility] MEDICINE 230 [place], [place] [phone] [facility] 230 [place], [place] [phone] Thoracic back pain, unspecified back pain laterality, [...] as of this encounter Plan of Treatment Upcoming Encounters Date Type Department Care Team (Late st Contact Info) Description 01/11/2025 9:15 AM EDT Office Visit [facility] 230 [place] [address] [place], [place], [facility] 230 [place] [address] 02/15/2025 3:00 PM EDT Office Visit [facility] [address] [place] [address] Edil, Ellyn, OD 230 [place] [address] 05/26/2025 1:00 PM EDT Office Visit [facility] ADULT DENTAL [address] [place] [address] Santo, Marlee [address] [place] [address] documented as of this encounter Visit Diagnoses Diagnosis Thoracic back pain, unspecified back pain laterality, unspecified chronicity documented in this encounter Additional Health Concerns Assessment Noted Time PHQ-9 Depression Total Score: 16 023 12:28 PM EST documented as of this encounter Care Teams Maintenance Mechanic Supervisor Relationship Specialty Start Date End Date [place]ilu, ORIENTAL MEDICINE PRACTITIONER 230 [place] [address] PCP - General Family Medicine 01/02/22 Raissa To PharmD 230 [place] [address] Pharmacist Internal Medicine 06/17/24 Lisset Varner Marketing Planner 04/08/24 07/08/24 documented as of this encounter
--- OUTSIDE RECORDS SUMMARY | 2024-11-21 18:57 | XMS_ITS | Encounter Summary ---
Author Organization [employer] [facility] Address [address] [facility] 7t [place] [address] Care Team Providers Care Rate Inserter Name Role Phone Marilu Reynoso ACCESS CLINICIAN Primary Care Provider [phone] Raissa To PharmD Unavailable [phone] Reason for Visit * Reason Onset Date Comments Appointment 10/21/2022 Encounter Details Date Type Department Care Team (Late st Contact Info) Description 10/21/2022 Telephone [facility] ADULT DENTAL 230 [place], [place] [phone] Luiz Moody DDS [address] [place], [place] [phone] Appointment Social History Tobacco Use Types Packs/Day [...] No room on PAR side for scheduling DR * Telephone Encounter - Liliana Guy - 10/21/2022 2:07 PM EST Patient is calling in to confirm if case is back from the lab. documented in this encounter Plan of Treatment Upcoming Encounters Date Type Department Care Team (Late st Contact Info) Description 01/11/2025 9:15 AM EDT Office Visit [facility] MEDICINE [address] [place] [address] [place] [facility] 230 [place] [address] 02/15/2025 3:00 PM EDT Office Visit [facility] OPTOMETRY [address] [place] [address] Edil, Ellyn, OD 230 [place] [address] 05/26/2025 1:00 PM EDT Office Visit [facility] ADULT DENTAL [address] [place] [address] Santo, Marlee [address] [place] [address] documented as of this encounter Visit Diagnoses Not on filedocumented in this encounter Care Teams Rate Inserter Relationship Specialty Start Date End Date [place] [facility] 230 [place] [address] PCP - General Family Medicine 01/02/22 Raissa To, ConsueloD [address] [place] [address] Pharmacist Internal Medicine 06/17/24 Lisset Varnre Home Agent 04/08/24 07/08/24 documented as of this encounter
--- OUTSIDE RECORDS SUMMARY | 2024-11-21 18:57 | XMS_ITS | Encounter Summary ---
Author Organization [employer] Address [address] [facility] [address] 7t [place] [address] Care Team Providers Care Rn Digestive Name Role Phone Marilu Reynoso COMPARISON SHOPPER Primary Care Provider [phone] Raissa To PharmD Unavailable [phone] Reason for Visit * Reason Onset Date Comments case back from lab?? 03/23/2024 Encounter Details Date Type Department Care Team (Late st Contact Info) Description 03/23/2024 Telephone [facility] ADULT DENTAL 230 [place], [place] [phone] Luiz Moody DDS 230 [place], [place] [phone] case back from lab?? Social History Tobacco [...] the past 12 months, has t he [facility], gas, oil or water [employer] threatened to shut off services in your [...] Description 01/11/2025 9:15 AM EDT Office Visit [facility] MEDICINE 230 [place] [address] [place], Marilu, COMPARISON SHOPPER [address] [place] [address] 02/15/2025 3:00 PM EDT Office Visit [facility] OPTOMETRY [address] [place] [address] Edil, Ellyn, OD 230 [place] [address] 05/26/2025 1:00 PM EDT Office Visit [facility] ADULT DENTAL 230 [place] [address] Marlee Blanchard 230 [place] [address] documented as of this encounter Visit Diagnoses Not on filedocumented in this encounter Additional Health Concerns Assessment Noted Time PHQ-9 Depression Total Score: 24 024 11:18 AM EDT documented as of this encounter Care Teams Rn Digestive Relationship Specialty Start Date End Date [place] FNP 230 [place] [address] PCP - General Family Medicine 01/02/22 Raissa To, Rafia 230 [place] [address] Pharmacist Internal Medicine 06/17/24 Lisset Varner Belt Loop Machine Operator 04/08/24 07/08/24 documented as of this encounter
--- OUTSIDE RECORDS SUMMARY | 2024-11-21 18:58 | XMS_ITS | Encounter Summary ---
Author Organization [facility] Address [address] [facility] [address] [place] [address] Care Team Providers Care Handle Bender Name Role Phone Marilu Reynoso [facility] Primary Care Provider [phone] Raissa To PharmD Unavailable [phone] Reason for Visit * Reason Comments Follow-up Encounter Details Date Type Department Care Team ([facility] st Contact Info) Description 11/21/2024 1:45 PM EDT Office Visit [facility] [address] [place], [place] [phone] [place] [facility] [address] [place], [place] [phone] Vaginal itching; Type 2 diabetes mellitus with diabetic microalbuminuria, with long-term current use of insulin ([facility]); Type 2 diabetes mellitus with hyperglycemia, with long-term current use of insulin ([facility]) Social History Tobacco Use Types Packs/Day Years Used Date Smoking Tobacco: Every Day Cigarettes Passive Smoke Exposure: Never Smokeless Tobacco: Never Tobacco Cessation:Ready to Q uit: Not Asked; Counseling Given: Not Answered Alcohol Use Standard Drinks/Week Comments Never 0 (1 standard drink = 0.6 oz pur e alcohol) Depression Answer Date Recorded Patient Health Questionnaire-9 Score 7 11/21/2024 Patient Health Questionnaire-9 Score 7 11/21/2024 Last PHQ-9: Questionnaire Data Not on file 0 11/21/2024 Housing Stability Answer Date Recorded What is [...] Date Recorded Patient Health Questionnaire-2 Score 2 11/21/2024 Internet Access Answer Date Recorded Internet Access [...] Sign Reading Time Taken Comments Blood Pressure 135/72 11/21/2024 2:15 PM EDT Pulse 76 11/21/2024 2:15 PM EDT Temperature 36 ??C (96.8 ??F) 11/21/2024 2:15 PM EDT Respiratory Rate 20 11/21/2024 2:15 PM EDT Oxygen Saturation 97% 11/21/2024 2:15 PM EDT Inhaled Oxygen Concentration - - Weight 90.6 kg (199 lb 12.8 oz) 11/21/2024 2:15 PM EDT Height 152.4 cm (5') 11/21/2024 2:15 PM EDT Body Mass Index 39.02 11/21/2024 2:15 PM EDT documented in this encounter Plan of Treatment Upcoming Encounters Date Type Department Care Team (Late st Contact Info) Description 01/11/2025 9:15 AM EDT Office Visit [facility]IC[facility] [address] [place] [address] [place], Marilu, MEDIA EXECUTIVE [address] [place] [address] 02/15/2025 3:00 PM EDT Office Visit [facility] OPTOMETRY [address] [place] [address] Edil, Ellyn, OD [address] [place] [address] 05/26/2025 1:00 PM EDT Office Visit [facility] ADULT DENTAL [address] [place] [address] Santo, Marlee [address] [place] [address] Scheduled Orders Name Type Priority Associated Diagnoses Orde r Schedule Bacterial Vaginosis Panel Microbiology Routine Vaginal itching Ordered: 11/21/2024 documented as of this encounter Procedures Procedure Name Priority Date/Time Associated Diagnosis Comments POCT GLUCOSE Routine 11/21/2024 2:21 PM EDT Type 2 diabetes mellitus with diabetic microalbuminuria, with long-term current use of insulin ([facility]) documented in this encounter Results * (ABNORMAL) POCT Glucose (11/21/2024 2:21 PM EDT) [facility] Glucose Blood, POC 238(A) 60 - 200 mg/dL Blood Capillary blood specimen / Unknown 11/21/2024 2:21 PM EDT [facility] POINT OF CARE TEST ENTER/EDIT ORDERABLES Final Result documented in this encounter Visit Diagnoses Diagnosis Vaginal itching Pruritus of genital organs Type 2 diabetes mellitus with diabetic microalbuminuria, with long-term current use of insulin ([facility]) Type 2 diabetes mellitus with hyperglycemia, with long-term current use of insulin ([facility]) documented in this encounter Additional Health Concerns Assessment Noted Time PHQ-9 Depression Total Score: 7 11/22/19 25 3:30 PM EDT documented as of this encounter Care Teams Handle Bender Relationship Specialty Start Date End Date Marilu Reynoso FNP [address] [place] [address] PCP - General Family Medicine 01/02/22 Raissa To PharmD [address] [place] [address] Pharmacist Internal Medicine 06/17/24 documented as of this encounter
--- OUTSIDE RECORDS SUMMARY | 2024-11-21 18:58 | XMS_ITS | Encounter Summary ---
Author Organization [employer] Address [address] [place] [address] Care Team Providers Care Pest Control Supervisor Name Role Phone Marilu Reynoso OPERATIONS ENGINEER Primary Care Provider [phone] Raissa To PharmD Unavailable [phone] Encounter Details Date Type Department Care Team (Latest Contact Info) Description 11/21/2024 Travel Social History Tobacco Use Types Packs/Day [...] Description 01/11/2025 9:15 AM EDT Office Visit [facility] MEDICINE [address] [place] [address] Marilu Reynoso FNP [address] [place] [address] 02/15/2025 3:00 PM EDT Office Visit [facility] OPTOMETRY [address] [place] [address] Edil, Ellyn, OD [address] [place] [address] 05/26/2025 1:00 PM EDT Office Visit [facility] ADULT DENTAL [address] [place] [address] Santo, Marlee [address] [place] [address] documented as of this encounter Visit Diagnoses Not on filedocumented in this encounter Additional Health Concerns Assessment Noted Time PHQ-9 Depression Total Score: 7 11/22/19 25 3:30 PM EDT documented as of this encounter Care Teams Pest Control Supervisor Relationship Specialty Start Date End Date Marilu Reynoso FNP [address] [place] [address] PCP - General Family Medicine 5/19/22 Raissa To, Rafia [address] [place] [address] Pharmacist Internal Medicine 06/17/24 documented as of this encounter
--- OUTSIDE RECORDS SUMMARY | 2024-11-21 18:58 | XMS_ITS | Encounter Summary ---
Author Organization [employer] Address [address] [place] [address] Care Team Providers Care Podiatric Physician Name Role Phone [place], Marilu [facility] Primary Care Provider [phone] Raissa To PharmD Unavailable [phone] Reason for Visit * Reason Onset Date Comments Appointment Request 06/29/2024 Encounter Details Date Type Department Care Team (Late st Contact Info) Description 06/29/2024 Telephone [facility] [address] [place], [place] [phone] [place] Marilu [facility] [address] [place], [place] [phone] Appointment Request Social History Tobacco Use Types [...] EDT Office Visit [facility] [address] [place] [address] [place], Marilu, FOUNDER [employer] CEO [address] [place] [address] 02/15/2025 3:00 PM EDT Office Visit [facility] OPTOMETRY [address] [place] [address] Edil, Ellyn, OD [address] [place] [address] 05/26/2025 1:00 PM EDT Office Visit [facility] ADULT DENTAL [address] [place] [address] Marlee Blanchard [address] [place] [address] documented as of this encounter Visit Diagnoses Not on filedocumented in this encounter Additional Health Concerns Assessment Noted Time PHQ-9 Depression Total Score: 24 024 11:18 AM EDT documented as of this encounter Care Teams Podiatric Physician Relationship Specialty Start Date End Date Marilu Reynoso FNP [address] [place] [address] PCP - General Family Medicine 01/02/22 Raissa To PharmD [address] [place] [address] Pharmacist Internal Medicine 06/17/24 Lisset Varner Motor Vehicle Licence Examiner 04/08/24 07/08/24 documented as of this encounter
--- OUTSIDE RECORDS SUMMARY | 2024-11-21 18:58 | XMS_ITS | Clinical Summary ---
Author Organization [employer] Address [address] [place] [address] Care Team Providers Care Network Administrator Name Role Phone Marilu Reynoso DIRECTOR CAREER Primary Care Provider [phone] Raissa To PharmD Unavailable Allergies Active Allergy [...] hyperglycemia, with long-term current use of insulin ([facility]) USE TO CLEAN SKIN BEFORE INJECTION DIRECTED 100 each 11 Active glucose blood (FREESTYLE LITE) test stripIndication s:Type 2 diabetes mellitus with hyperglycemia, with long-term current use of insulin ([facility]) USE DIRECTED TO TEST BLOOD SUGAR FOUR TIMES DAILY 100 strip 11 Active insulin pen needle (Exelonix SafePack Pen Needle) 32G x 4 mm miscIndications :Type 2 diabetes mellitus with hyperglycemia, with long-term current use of insulin ([facility]) USE DIRECTED WITH INSULIN 100 each Active TRUEplus Lancets 33G miscIndications :Type 2 diabetes mellitus with hyperglycemia, with long-term current use of insulin ([facility]) USE DIRECTED TO TEST BLOOD SUGAR FOUR TIMES DAILY 100 each 024 Active levothyroxine (Synthroid, Levoxyl) 75 MCG tablet TAKE 1 TABLET BY MOUTH EVERY MORNING 90 tablet 3 024 Active olmesartan (BENIcar) 20 MG tablet TAKE 1 TABLET BY MOUTH EVERY MORNING 90 tablet 3 024 Active Continuous Glucose Mechanical Facilities Technician (FreeStyle Stevo 2 [place]) deviceIndicatio ns:Type 2 diabetes mellitus with hyperglycemia, with long-term current use of insulin ([facility]) For monitoring interstitial glucose every 8 hours and as needed 1 each Active Continuous Glucose Sensor (FreeStyle Stevo 2 Sensor) miscIndications :Type 2 diabetes mellitus with hyperglycemia, with long-term current use of insulin ([facility]) Test blood sugar every 8 hours and as needed 2 each 3 Active glucose blood (FreeStyle Precision Dylan Test) test stripIndication s:Type 2 diabetes mellitus with hyperglycemia, with long-term current use of insulin ([facility]) Test blood sugar every 8 hours and as needed 100 each 11 11/012024 Active diphenoxylate-a tropine (Lomotil) 2.5-0.025 MG tablet TAKE 1 TABLET ORALLY 2 TIMES DAILY NEEDED FOR DIARRHEA Active nicotine (Nicoderm, Step 1) 21 MG/24HR patch APPLY 1 PATCH TRANSDERMALLY DAILY Active fexofenadine (Sheri) 180 MG tabletIndicatio ns:Allergic rhinitis, unspecified seasonality, unspecified trigger Take 1 tablet (180 mg) by mouth Once per day. 30 tablet 024 2024 Active empagliflozin (Jardiance) 10 MGIndications:T ype 2 diabetes mellitus with diabetic microalbuminuri a, with long-term current use of insulin ([facility]) Take 1 tablet (10 mg) by mouth Once per day. 30 tablet 024 2024 Active predniSONE (Deltasone) 20 MG tabletIndicatio ns:Adhesive capsulitis of left shoulder 2 tabs po daily for 5 days 10 tablet Active Alcohol Swabs (Alcohol Prep) padsIndications :Type 2 diabetes mellitus with diabetic microalbuminuri a, with long-term current use of insulin ([facility]) Use one pad each to prep skin prior to injection as directed 100 each 11 025 Active Lancets 33G miscIndications :Type 2 diabetes mellitus with diabetic microalbuminuri a, with long-term current use of insulin (CMS/HCC) Use as directed to check blood sugar four times daily 100 each 3 025 Active Blood Glucose Monitoring Suppl (GNP Easy Touch Glucose Meter) deviceIndicatio ns:Type 2 diabetes mellitus with diabetic microalbuminuri a, with long-term current use of insulin ([facility]) Use as directed to check blood sugar four times daily 1 each 025 Active glucose blood test stripIndication s:Type 2 diabetes mellitus with diabetic microalbuminuri a, with long-term current use of insulin ([facility]/HCC) Use as directed to check blood sugar four times daily 100 each 12 025 Active insulin pen needle 32G x 4 mm miscIndications :Type 2 diabetes mellitus with diabetic microalbuminuri a, with long-term current use of insulin ([facility]) Use as instructed to inject insulin 4 times daily 120 each 025 2025 Active Continuous Glucose Mechanical Facilities Technician (FreeStyle Stevo 3 [place]) deviceIndicatio ns:Type 2 diabetes mellitus with diabetic microalbuminuri a, with long-term current use of insulin ([facility]/HCC) 1 each Once per day. Use as directed for CGM 1 each 025 Active Continuous Glucose Sensor (FreeStyle Stevo 3 Plus Sensor) miscIndications :Type 2 diabetes mellitus with diabetic microalbuminuri a, with long-term current use of insulin ([facility]/HCC) 1 each every 15 days. Apply 1 every 15 days as directed for CGM 2 each Active glucose blood (FreeStyle Precision Dylan Test) test stripIndication s:Type 2 diabetes mellitus with diabetic microalbuminuri a, with long-term current use of insulin ([facility]) Use to test blood sugar 4 times daily in case of CGM failure or extremes of BG 100 each 025 2025 Active famotidine (Pepcid) 20 MG tabletIndicatio ns:Dyspepsia Take 1 tablet (20 mg) by mouth 2 times daily. 60 tablet 025 2025 Active QUEtiapine (SEROquel) 200 MG tabletIndicatio ns:Mood disorder ([facility]/HCC) TAKE 1 TABLET BY MOUTH AT BEDTIME 90 tablet 025 Active gabapentin (Neurontin) 100 MG capsuleIndicati ons:Thoracic back pain, unspecified back pain laterality, unspecified chronicity TAKE 2 CAPSULES BY MOUTH THREE TIMES DAILY IN THE MORNING, AT NOON AND AT BEDTIME 540 capsule 025 Active insulin glargine (Lantus SoloStar) 100 UNIT/ML penIndications: Type 2 diabetes mellitus with hyperglycemia, with long-term current use of insulin ([facility]) Inject subcutaneously 26 units once daily 3 mL 1 025 Active insulin lispro (HumaLOG KWIKPEN) 100 UNIT/ML injectionIndica tions:Type 2 diabetes mellitus with hyperglycemia, with long-term current use of insulin ([facility]) inject by subcutaneous route per the following sliding scale before meals; do not administer if you don't eat. Sliding scale: 131-180=8units, 181-240=10 units, 241-300=12 units, 301-350=14 units, >350=16 units 100 mL 11 Active semaglutide (Ozempic) 2 MG/1.5ML solution pen-injectorInd ications:Type 2 diabetes mellitus with hyperglycemia, with long-term current use of insulin (CMS/HCC) Inject 0.25 mg under the skin 1 (one) time per week. PLEASE REVIEW TEACHING 1 each Active insulin lispro (HumaLOG KWIKPEN) 100 UNIT/ML injectionIndica tions:Type 2 diabetes mellitus with hyperglycemia, with long-term current use of insulin ([facility]) inject by subcutaneous route per the following sliding scale before meals; do not administer if you don't eat. Sliding scale: 131-180=6units, 181-240=8 units, 241-300=10 units, 301-350=12 units, >350=14 units 100 mL 11 024 2024 Discontinued(R eorder (will not trigger notification to Pharmacy)) Trulicity 4.5 MG/0.5ML solution auto-injector INJECT ONE PEN (= 4.5MG) SUBCUTANEOUSLY ONCE A WEEK DIRECTED 024 2024 Discontinued insulin glargine (Lantus SoloStar) 100 UNIT/ML penIndications: Type 2 diabetes mellitus with hyperglycemia, with long-term current use of insulin ([facility]) Inject subcutaneously 24 units once daily 024 2024 Discontinued(R eorder (will not trigger notification to Pharmacy)) ibuprofen 600 MG tabletIndicatio ns:Adhesive capsulitis of left shoulder Take 1 tablet (600 mg) by mouth every 8 (eight) hours if needed for moderate pain or fever. 30 tablet 025 2024 QUEtiapine (SEROquel) 200 MG tabletIndicatio ns:Mood disorder (CMS/HCC) TAKE 1 TABLET BY MOUTH AT BEDTIME 30 tablet 025 2024 Discontinued gabapentin (Neurontin) 100 MG capsuleIndicati ons:Thoracic back pain, unspecified back pain laterality, unspecified chronicity TAKE 2 CAPSULES BY MOUTH THREE TIMES DAILY IN THE MORNING, AT NOON AND AT BEDTIME 180 capsule 025 2024 Discontinued nitrofurantoin, macrocrystal-mo nohydrate, (Macrobid) 100 MG capsuleIndicati ons:Cystitis Take 1 capsule (100 mg) by mouth 2 times daily for 5 days. 10 capsule 025 2024 metroNIDAZOLE (Flagyl) 500 MG tabletIndicatio ns:Bacterial vaginosis Take 1 tablet (500 mg) by mouth 2 times daily for 7 days. 14 tablet 025 2024 Hospital, Clinic, or Other Facility Administered Medication Ordered Dose Route Frequency Start Date End Date Status Insulin Lispro solution 14 UnitsIndications:Type 2 diabetes mellitus with diabetic microalbuminuria, with long-term current use of insulin ([facility]) 14 Units IJ Once 10/24/2024 10/24/2024 Ende [...] 2:27 PM EST): -gave number to call [facility] Healthcare maintenance 03/03/2023 Overview (02/19/2024): Pap: 2-18, HPV neg NIL-->overdue for repeat. Will schedule appointment today Mammogram: Pt missed multiple appointments--she needs to call to reschedule BMD: Routine age 65 LDLCT: Accepts referral to [facility] CRC: Has not complete previous GI referrals [...] Exam: 07/2023 Risk 1 Eye Exam: 06/2023 [facility] Lipid panel: 02/2023 Microalbumin:creatinine ratio: 42.5 02/2023 [...] CGM sensor resent ?? Will refer to [facility] DM educator ?? Will hold off on [...] ?? New BP kit sent to pharmacy long term (current) use of insulin 06/26/2015 Chronic major depressive disorder, single episod e 05/23/2015 Overview (03/06/2023): - Seroquel 150mg every evening for help with sleep - Sertraline 50mg - Psychiatric history unclear. ?bipolar disorder - Hx of suicidal ideation and psych hospitalization - Referred to [facility], per chart note, contact attempt was made. Patient needs to call back Assessment & Plan (06/21/2023 6:33 AM EST): - Resubmit referral to (STAT) - Contact HC if sx worsen or experiencing thoughts of SI or self harm. Pt has [facility] crisis contact information Hyperlipidemia 05/23/2015 [...] through. Provided patient and her daughter with [facility] pulmonology phone number to call and schedule initial appointment. - ED precautions reviewed Assessment & Plan (03/06/2023 1:10 PM EDT): ?? Persistent diffuse wheezing ?? Will re-submit referral to pulmonology Resolved Problems Problem Noted Date Diagnosed Date Resolved Date Microalbuminuria due to type 2 diabetes mellitus ([facility]) 04/25/2023 02/19/2024 Periodontal disease 10/23/2022 03/03/20 Dental caries 10/23/2022 03/03/2023 History of severe acute resp iratory syndrome coronavirus 2 (SARS-CoV-2) disease 09/24/202002/18 Thoracic back pain 01/18/2018 3 Allergic rhinitis 06/02/2016 03/06/2023 Encounters * This document contains information received from the source organization and may not represent a complete record from that organization. Date Type Department Care Team Description 11/21/2024 1:45 PM EDT Office Visit [address] [phone] Marilu Reynoso FNP Vaginal itching; Type 2 diabetes mellitus with diabetic microalbuminuria, with long-term current use of insulin ([facility]); Type 2 diabetes mellitus with hyperglycemia, with long-term current use of insulin ([facility]) 11/21/2024 Travel 11/14/2024 Telephone [facility] [address] [place] [phone] Yeimy Tovar, [place] Results 11/11/2024 Telephone [facility] [address] [place] [phone] Yeimy Tovar, RN Results 11/11/2024 Telephone [facility] [address] [place] [phone] Leighann Tran NP Results 11/10/2024 Telephone [facility] [address] [place] [phone] Yeimy Tovar, [place] Results 11/10/2024 Orders Only [facility] [address] [place] [phone] Leighann Tran NP Bacterial vaginosis (Primary Dx) 11/09/[address] [address] Marilu Reynoso FNP Results 11/03/2024 2:40 PM EDT Office Visit [facility] [address] [place] [address] Leighann Tran NP Acute cystitis without hematuria (Primary Dx); Vagina itching 11/02/2024 Telephone [facility] [address] [place] [address] AngelesMarilu samayoa [facility] Results 11/02/2024 Orders Only [facility] [address] [place] [phone] PhoenixMarilu [facility] 10/28/2024 Telephone [facility] [address] [place] [phone] PhoenixMariul [facility] Lab Orders 10/28/2024 Population Health Risk Score Community [facility] () [address] [phone] Provider, Population Health Generic 10/26/2024 Orders Only [facility] [address] [place] [phone] AngelesMarilu samayoa [facility] 10/26/2024 Refill [facility] [address] [place] [address] PhoenixMarilu [facility] Mood disorder (CMS/HCC); Thoracic back pain, unspecified back pain laterality, unspecified chronicity 10/26/2024 Telephone [facility] [address] [place] [phone] Desirae Taylor RN CGM PA 10/24/2024 1:00 PM EDT Office Visit [address] [address] AngelesMarilu samayoa [facility] Type 2 diabetes mellitus with diabetic microalbuminuria, with long-term current use of insulin (CMS/HCC) (Primary Dx); Cystitis; Chronic diarrhea; Dyspepsia; Severe persistent asthma, unspecified whether complicated; Essential hypertension; Dietary counseling; Exercise counseling 10/24/2024 Orders Only [facility] [address] [place] [address] Marilu Reynoso FNP 10/24/2024 Travel 10/21/2024 Telephone [facility] [address] [place] [phone] Ellyn Solo OD 10/18/2024 Telephone [facility] [address] [place] [address] Marilu Reynoso FNP 10/17/2024 Patient Outreach [facility] [address] [place] [address] PhoenixMarilu samayoa FNP Pre-visit Planning (SDOH unable to reach [facility] ) 09/23/2024 3:00 PM EST Office Visit [facility] [address], [place] [phone] Laurence Parrish MD Adhesive capsulitis of left shoulder (Primary Dx); Mood disorder ([facility]) 09/23/2024 Refill [facility] [address], [place] [phone] Lexx Christianson MD Mood disorder ([facility]); Thoracic back pain, unspecified back pain laterality, unspecified chronicity from Last 3 Months Immunizations Name Administration [...] Weight 90.6 kg (199 lb 12.8 oz) 025 2:15 PM EDT Height 152.4 cm (5') 11/21/2024 2:15 PM EDT Body Mass Index 39.02 11/21/2024 2:15 PM EDT Plan of Treatment Upcoming Encounters Date Type Department Care Team (Late st Contact Info) Description 01/11/2025 9:15 AM EDT Office Visit [facility] [address] [place] [address] [facility], [facility] [address] [place] [address] 02/15/2025 3:00 PM EDT Office Visit [facility] [address] [place] [address] Edil, Ellyn, OD [address] [place] [address] 05/26/2025 1:00 PM EDT Office Visit [facility] [address] [place] [address] Santo, Marlee [address] [place] [address] Health Maintenance Due Date Last Done Comments [...] 01/14/2017 Dental Oral Exam 09/22/2024 03/21/2024, 10/23/2022 Diabetes: Hemoglobin A1C 01/24/2025 025, 06/15/2024, 02/17/2024, Additional history exists SDOH Screening 03/18/2025 03/18/2024 Eye Exam 06/25/2025 06/25/2023, 1104/2023, 06/25/2023, Additional history exists Lipid Panel 07/11/2025 07/11/2024, 02/14, 01/03/2022 Diabetes: Foot Exam 07/18/2025 07/18/2024, 07/18/2024, 07/18/2024, Additional history exists Depression Screening 11/21/2025 11/21/2024, 11/22/19 Tobacco Screening 11/21/2025 11/21/2024 DTaP/Tdap/Td Vaccines (4 - Td or Tdap) [...] microalbuminuria, with long-term current use of insulin ([facility]) POCT URINALYSIS DIPSTICK Routine 11/03/2024 3:13 PM EDT Vagina itching SURESWAB(R) ADVANCED VAGINITIS PLUS, TMA Routine 11/03/2024 12:00 AM EDT Vagina itching CULTURE, URINE, ROUTINE Routine 11/03/2024 12:00 AM EDT Acute cystitis without hematuria CANCELLED SEROLOGY Routine 10/26/2024 2: 30 PM EDT CALPROTECTIN, STOOL Routine 10/26/2024 2 :30 PM EDT Chronic diarrhea HELICOBACTER PYLORI AG, EIA, STOOL Routine 10/26/2024 2:30 PM EDT Dyspepsia VITAMIN B12 Routine 10/24/2024 2:28 PM EDT T-SPOT(R).TB Routine 10/24/2024 2:28 PM EDT Screening examination for pulmonary tuberculosis CULTURE, URINE, ROUTINE Routine 10/24/2024 2:28 PM EDT Cystitis POCT GLUCOSE Routine 10/24/2024 1:47 PM EDT Type 2 diabetes mellitus with diabetic microalbuminuria, with long-term current use of insulin ([facility]) POCT GLYCATED HEMOGLOBIN, TOTAL Routine 10/24/2024 1:47 PM EDT Type 2 diabetes mellitus with diabetic microalbuminuria, with long-term current use of insulin ([facility]) XR SHOULDER 2+ VIEWS LEFT Routine 09/23/2024 [...] to Health Maintenance Results * (ABNORMAL) POCT Glucose (11/21/2024 2:21 PM EDT) Only the most recent of2 resultswithin the time period is included. Glucose Blood, POC 238(A) 60 - 200 mg/dL Blood Capillary blood specimen / Unknown 11/21/2024 2:21 PM EDT Result [facility] DIRECTOR CAREER POINT OF CARE TEST ENTER/EDIT ORDERABLES Final Result * POCT urinalysis dipstick manually resulted (11/03/2024 3:13 PM EDT) Color, UA Yellow Clarity, UA Clear Glucose, UA 4+ >500 Comment:1000mg Bilirubin, UA Negative Ketones, UA Negative Spec Grav, UA 1.005 Blood, UA Negative Negative, None Detected pH, UA 5.5 Protein, UA Negative Urobilinogen, UA 0.2 Leukocytes, UA Negative Negative, Rare, Trace Nitrite, UA Negative Negative, None Detected Appearance, UA OK Urine 11/03/2024 3:13 PM EDT [facility] POINT OF CARE TEST ENTER/EDIT O RDERABLES Final Result * (ABNORMAL) SureSwab?? Advanced Vaginitis Plus, TMA (11/03/2024 12:00 AM EDT) CTNG Ref Lab NOT DETECTED NOT DETECTED [facility] NG Ref Lab NOT DETECTED NOT DETECTED [facility] Comment:For additional infor matsalome, please refer tohttps://education.Lelong/faq/ZJG602(This link is being provided for information/educational purposes only.)THIS TEST WAS PERFORMED AT:[employer] [place] [phone] DIAZ MD SureSwab 9R) ADV Bacterial Vaginosis (BV), TMA POSITIVE(A ) NEGATIVE [facility] Astrid Species DETECTED(A ) NOT DETECTED [facility] Astrid glabrata DETECTED(A ) NOT DETECTED [facility] Comment:C. glabrata, which i s responsible for the majority ofnon-albicans CV in the [place] may have decreasedsusceptibility to standard antimycotic therapeuticintervention compared to C. albicans.Astrid species C. albicans, C. tropicalis,C. parapsilosis, and/or C. dubliniensis can be detected,but not differentiated, in the Astrid spp. result. Trichomonas vaginalis (TV), TMA NOT DETECTED NOT DETECTED [facility] 11/03/2024 11/03/2024 Leighann Tran [facility] BODY FLUIDS AND STOOLS ARTURO HOWARD Final Result [facility] [address] [place] [address] [phone] * Culture, Urine, Routine (11/03/2024 12:00 AM EDT) Only the most recent of2 resultswithin the time period is included. Urine Urine specimen obtained by clean catch procedure / Unknown 11/03/2024 11/04/2024 12:25 PM EDT Comment:CC Narrative [facility] - 11/05/2024 12:29 PM EDT Urine Culture No growth. Specimen Source: Urine clean catch Leighann Hernandez [facility] MICROBIOLOGY - [facility] Final Result Performing Organization Address City/[facility]/ZIP Co de Phone Number [facility] [address] [place] [address] [phone] * Cancelled Serology (10/26/2024 2:30 PM EDT) Cancelled Serology SEE NOTE [facility] Comment:THE FOLLOWING TESTS WERE CANCELLED: FECAL GLOBINREASON: NO SUITABLE SPECIMEN RECEIVED; REQUIRES INSURE FOBTCARD 10/26/2024 2:30 PM EDT 10/26/2024 6:34 PM EDT [facility] DIRECTOR CAREER HISTORICAL/NON ORDERABLE LABS Final Result Performing Organization Address City/[facility]/ZIP Co de Phone Number [facility] [address] [place] [address] [phone] * Calprotectin, Stool (10/26/2024 2:30 PM EDT) Calprotectin,Fecal 22 mcg/g [facility] Comment:Reference Range: <50 Normal 50-120 Borderline >120 ElevatedCalprotectin in Crohn's disease and ulcerative colitis canbe five to several thousand times above the referencepopulation (50 mcg/g or less). Levels are usually 50 mcg/gor less in healthy patients and with irritable bowelsyndrome. Repeat testing in 4-6 weeks is suggested forborderline values.THIS TEST WAS PERFORMED AT:[employer] [id number] [facility] [place] [address]LXFPWCESILIA PEREA MD,PHD,SHOSHANA Stool 10/26/2024 2:30 PM EDT 10/26/2024 6:34 PM EDT [facility] BODY FLUIDS AND STOOLS OR DERABLES Final Result Performing Organization Address [facility] Co de Phone Number [facility] [address] [place] [address] [phone] * Helicobacter pylori??Antigen, EIA, Stool (10/26/2024 2:30 PM EDT) Pathologist [facility] H pylori Ag Stool SEE NOTE [facility] Comment:HELICOBACTER PYLORI AG, EIA, STOOL Micro Number: [id number] Test Status: Final Specimen Source: Stool Specimen Quality: Adequate H.pylori Ag: Not Detected Antimicrobials, proton pump inhibitors, and bismuth preparations inhibit H. pylori and ingestion up to two weeks prior to testing may cause false negative results. If clinically indicated the test should be repeated on a new specimen obtained two weeks after discontinuing treatment. Reference Range: Not DetectedTHIS TEST WAS PERFORMED AT:[employer] [address] [id number] DIAZ MD Stool Rectal contents / Unknown 10/26/2024 2:30 PM EDT 10/26/2024 6:34 PM EDT [facility] BODY FLUIDS AND STOOLS OR DERABLES Final Result Performing Organization Address [facility] Co de Phone Number [facility] [address] [place] [phone] * T-SPOT??.TB (10/24/2024 2:28 PM EDT) T Spot TB Negative Negative [facility] Comment:A negative test resu lt does not exclude the possibilityof exposure to or infection with Mycobacteriumtuberculosis (M. tuberculosis). Patients with recentexposure to TB infected individuals exhibiting anegative T-SPOT.TB result should be considered forretesting within 6 weeks or if other relevant clinicalsymptoms indicate. Results from T-SPOT.TB testing mustbe used in conjunction with each individual'sepidemiological history, current medical status,and results of other diagnostic evaluations.The T-SPOT.TB test is qualitative and results arereported as positive, borderline, or negative, giventhat the test controls perform as expected. In linewith the Centers for Disease Control and Prevention's2010 recommendation to report quantitative measurementsalongside the qualitative result, the laboratoryprovides spot counts for informational purposes only.The T-SPOT.TB test should not be interpreted as aquantitative test. TS PANEL A 0 [facility] TS PANEL B 0 [facility] Negative Control Passed [facility] Positive Control Passed [facility] Comment:For additional infor matsalome, please refer tohttp://education.Lelong/faq/RSW813(This link is being provided for informational/educational purposes only.)THIS TEST WAS PERFORMED AT:[employer] [id number] [place] [address]LQYTWKRMESSI DESAI MD,PHD 10/24/2024 2:28 PM EDT 10/24/2024 4:07 PM EDT [facility] DIRECTOR CAREER LAB BLOOD ORDERABLES Final Re sult [facility] [address] [place] [phone] * (ABNORMAL) Vitamin B12 (10/24/2024 2:28 PM EDT) Vitamin B12 1,923(H) 200 - 900 pg/mL [facility] Comment:NORMAL 200-900 PG/ML INDETERMINATE 160-199 PG/ML DEFICIENT < 160 PG/ML 10/24/2024 2:28 PM EDT 10/24/2024 4:07 PM EDT [facility] DIRECTOR CAREER LAB BLOOD ORDERABLES Final Re sult [facility] [address] [facility] [place] [address] [phone] * (ABNORMAL) POCT HGB A1C (10/24/2024 1:47 PM EDT) Hemoglobin A1C 9.9(A) 4.0 - 6.0 % Blood 10/24/2024 1:47 PM EDT [facility] DIRECTOR CAREER POINT OF CARE TEST ENTER/EDIT ORDERABLES Final Result * XR Shoulder 2+ Views Left (09/23/2024 3:06 PM EST) Anatomical Region Laterality Modality Upper Extremities, Shoulder Left Radi ographic Imaging 09/23/2024 3:06 PM EST Narrative 09/23/2024 3:26 PM EST ?[facility] ?[address] ?[place] [address] ?XRay Report ? Signed ? Patient: Shannon Aviles ?MR#: [id number] ?? [id number] ? : 1970 ?Acct:[id number] ? Age/Sex: 54 / F ?ADM Date: 09/23/24 ? Loc: HO.HHCX ? Attending Dr: Laurence Parrish MD ? Ordering Physician: Laurence Parrish MD ?? Date of Service: 09/23/24 ?? Procedure(s): XR shoulder LT min 2V ?? Accession Number(s): [id number] ? cc: Laurence Parrish MD ? EXAMINATION: [...] DD/ 1506 ? TD/TT: 09/23/24 1521 ? Earth Science Technician: ? Procedure Note [place], Image - 09/23/[address] [address] XRay Report Signed Patient: Pamela Aviles#: [id number] : 1970Acct:[id number] Age/Sex: 54 / FADM Date: 09/23/24 Loc: HO.HHCX Attending Dr: Laurence Parrish MD Ordering Physician: Laurence Parrish MD Date of Service: 09/23/24 Procedure(s): XR shoulder LT min 2V Accession Number(s): [id number] cc: Laurence Parrish MD EXAMINATION: XR SHOULDER [...] 09/23/24 1524 DD/ 1506 TD/TT: 09/23/24 1521 Earth Science Technician: Laurence Parrish MD IMG XR PROCEDURES Final Re sult * (ABNORMAL) Lipid Panel, Standard (07/11/2024 3:30 PM EST) Triglycerides 184(H) <150 mg/dL [facility] Comment:Desirable Triglyceri de: less than 150 mg/dLBorderline High Triglyceride 150-199 mg/dLHigh Triglyceride: 200-499 mg/dLVery High Triglyceride: greater than or equal to 5OO mg/dL Cholesterol 123 <200 mg/dL [facility] Comment:Desirable Cholestero l: less than 200 mg/dLBorderline High Cholesterol: 200-239 mg/dLHigh Cholesterol: greater than 239 mg/dL LDL Cholesterol Calculated 46 <100 mg/dL [facility] Comment:Desirable LDL: less than 100 mg/dLNear Optimal/Above Optimal LDL: 110- 129 mg/dLBorderline High LDL: 130-159 mg/dLHigh LDL: 160-189 mg/dLVery High LDL: greater than or equal to 190 mg/dL HDL Cholesterol 41 >40 mg/dL [facility] Comment:Desirable HDL: great er than 40 mg/dL Note: This HDL assay may give artificially low results in patients with liver disease. 07/11/2024 3:30 PM EST 07/11/2024 3:55 PM EST [facility] DIRECTOR CAREER LAB BLOOD ORDERABLES Final Re sult [facility] [address] [place] [phone] * 3D DIGITAL TREMAYNE SCR MAMMO [...] DIGITAL TREMAYNE SCR MAMMO 1 Mehreen Sorto VALET RUNNER IMG BI PROCEDURES Final Result * Hm Colonoscopy (06/28/2019 8:54 AM EST) us Historical Provider HEALTH MAINTENANCE Final Result * HPV mRNA E6/E7 (05/11/2018 10:15 AM EDT) HPV mRNA E6/E7 Not Detected NOT DETECTED [facility] Comment: This test was performed using the APTIMA(R) HPV Assay ([employer] This assay detects E6/E7 viral messenger RNA (mRNA) from 14 high-risk HPV types (16,18,31,33,35,39,45,51, 52,56,58,59,66,68). For additional information please refer to: http://education.Lelong/faq/NEL599m6 (This link is being provided for informational/ educational purposes only.) The analytical performance characteristics of this assay have been determined by [facility] [place], [place]. The modifications have not been cleared or approved by the FDA. This assay has been validated pursuant to the CLIA regulations and is used for clinical purposes. Test Performed by [facility], [facility] [place], [address] [place] [address] Messi Desai M.D., Ph.D., Director of Laboratories , CLIA [id number] Please note: ??Effective 04/28/2016, HPV testing will be performed using [employer]'s APTIMA test which targets mRNA. Detecting mRNA instead of DNA, as in older methods, offers significant improvements in specificity. 05/11/2018 10:1 5 AM EDT us Mehreen Sorto NP HISTORICAL/NON ORDERABLE LABS Fi nal Result [facility] [address] from Last 3 Months or Most Recently Relevant to Health Maintenance Insurance Care Teams Network Administrator Relationship Specialty Start Date End Date Marilu Reynoso FNP [address] [place] [address] PCP - General Family Medicine 01/02/22 aRissa To, ConsueloD [address] [place] [phone] Pharmacist Internal Medicine 06/17/24
--- OUTSIDE RECORDS SUMMARY | 2024-11-21 18:58 | XMS_ITS | Encounter Summary ---
Author Organization [employer] Address [address] 7t [place] [address] Care Team Providers Care Banquet Prep Cook Name Role Phone Marilu Reynoso CEMENT CAR DUMPER Primary Care Provider [phone] Raissa To PharmD Unavailable [phone] Reason for Visit * Reason Onset Date Comments Results 11/14/2024 Encounter Details Date Type Department Care Team (Late st Contact Info) Description 11/14/2024 Telephone [facility] [address] [place] [address] Yeimy Tovar, GERMANIA Results Social History Tobacco Use Types Packs/Day [...] encounter Miscellaneous Notes * Telephone Encounter - Kim Benavides RN - 11/19/2024 8:54 AM EDT Telephone call returned to pt. No answer, left another v/m. * Telephone Encounter - Kristian Kilgore - 11/18/2024 2:42 PM EDT Tc from pt returning call regarding prior message. Contact pt at [phone] * Telephone Encounter - Tano Vergara - 11/18/2024 12:10 PM EDT Pt returning call * Telephone Encounter - Yeimy Tovar RN - 11/14/2024 10:16 AM EDT Fifth and final TC attempt- letter sent also. Using [employer] pest technician ID #[id number] for Omani, VM left for pt to return call to [facility]. Lucina, please inform patient of vaginal swab results which reveals marifer organism that dose not typically respond to fluconazole. Advise she purchase boric acid vaginal suppository OTC and insert 1capsule into the vagina nightly for 3 weeks. Caution against oral sex as boric acid is toxic when ingested. Test was also positive for BV, 7 day course of oral metronidazole has been sent to the pharmacy forher. Fourth attempt made the contact pt by phone left a message in Occitan and Omani for pt to contactthe [facility] on Thursday. Will mail letter to address on file as well. documented in this encounter Plan of Treatment Upcoming Encounters Date Type Department Care Team ([facility] st Contact Info) Description 01/11/2025 9:15 AM EDT Office Visit [facility] [address] [place] [address] Marilu Reynoso FNP [address] [place] [address] 02/15/2025 3:00 PM EDT Office Visit [facility] [address] [place] [address] Edil, Ellyn, OD [address] [place] [address] 05/26/2025 1:00 PM EDT Office Visit [facility] [address] [place] [address] Santo, Marlee [address] [place] [address] documented as of this encounter Visit Diagnoses Not on filedocumented in this encounter Additional Health Concerns Assessment Noted Time PHQ-9 Depression Total Score: 9 07/18/20 24 1:40 PM EST documented as of this encounter Care Teams Banquet Prep Cook Relationship Specialty Start Date End Date Marilu Reynoso FNP [address] [place] [address] PCP - General Family Medicine 01/02/22 Raissa To, PharmD [address] [place] [address] Pharmacist Internal Medicine 06/17/24 documented as of this encounter
--- OUTSIDE RECORDS SUMMARY | 2024-11-21 18:58 | XMS_ITS | Encounter Summary ---
Author Organization [employer] Address [address] 7t [place] [address] Care Team Providers Care Commercial Loan Reviewer Name Role Phone Marilu Reynoso RECREATION PROGRAMMER Primary Care Provider [phone] Raissa To PharmD Unavailable [phone] Encounter Details Date Type Department Care Team (Late st Contact Info) Description 11/10/2024 Orders Only [facility] [address] [place], [place] [phone] Leighann Tran NP [address] [place], [place] [phone] Bacterial vaginosis (Primary Dx) Social History Tobacco Use Types [...] Description 01/11/2025 9:15 AM EDT Office Visit [facility] [address] [place] [address] [facility], [facility] [address] [place] [address] 02/15/2025 3:00 PM EDT Office Visit [facility] [address] [place] [address] Edil, Ellyn, OD [address] [place] [address] 05/26/2025 1:00 PM EDT Office Visit [facility] [address] [place] [address] Santo, Marlee [address] [place] [address] documented as of this encounter Visit Diagnoses Diagnosis Bacterial vaginosis- Primary Unspecified vaginitis and vulvovaginitis documented in this encounter Additional Health Concerns Assessment Noted Time PHQ-9 Depression Total Score: 9 07/18/20 24 1:40 PM EST documented as of this encounter Care Teams Commercial Loan Reviewer Relationship Specialty Start Date End Date Marilu Reynoso CANDIS [address] [place] [address] PCP - General Family Medicine 01/02/22 Raissa To, Rafia [address] [place] [address] Pharmacist Internal Medicine 06/17/24 documented as of this encounter
--- OUTSIDE RECORDS SUMMARY | 2024-11-21 18:58 | XMS_ITS | Encounter Summary ---
Author Organization [employer] Address [address] [facility] 7t [place] [address] Care Team Providers Care Eligibility Supervisor Name Role Phone [place], [facility] Primary Care Provider [phone] Raissa To PharmD Unavailable [phone] Reason for Visit * Reason Onset Date Comments Results 11/09/2024 Encounter Details Date Type Department Care Team (Late st Contact Info) Description 11/09/2024 Telephone [facility] [address] [place], [place] [phone] [facility] [address] [place], [place] [phone] Results Social History Tobacco Use Types Packs/Day [...] encounter Miscellaneous Notes * Telephone Encounter - Coco Salcedo - 11/09/2024 4:11 PM EDT Tc from pt requesting results from 11/03 documented in this encounter Plan of Treatment Upcoming Encounters Date Type Department Care Team (Late st Contact Info) Description 01/11/2025 9:15 AM EDT Office Visit [facility] [address] [place] [address] [facility], [facility] [address] [place] [address] 02/15/2025 3:00 PM EDT Office Visit [facility] [address] [place] [address] Edil, Ellyn, OD [address] [place] [address] 05/26/2025 1:00 PM EDT Office Visit [facility] [address] [place] [address] Marlee Blanchard [address] [place] [address] documented as of this encounter Visit Diagnoses Not on filedocumented in this encounter Additional Health Concerns Assessment Noted Time PHQ-9 Depression Total Score: 9 07/18/20 24 1:40 PM EST documented as of this encounter Care Teams Eligibility Supervisor Relationship Specialty Start Date End Date Marilu Reynoso FNP [address] [place] [address] PCP - General Family Medicine 01/02/22 Raissa To PharmD [address] [place] [address] Pharmacist Internal Medicine 06/17/24 documented as of this encounter
--- OUTSIDE RECORDS SUMMARY | 2024-11-21 18:58 | XMS_ITS | Encounter Summary ---
Author Organization [employer] Address [address] [address] 7t [place] [address] Care Team Providers Care Aquaculture And Fisheries Professor Name Role Phone Marilu Reynoso HAND INSPECTOR Primary Care Provider [phone] Raissa To PharmD Unavailable [phone] Encounter Details Date Type Department Care Team (Late st Contact Info) Description 07/14/2023 Abstract [facility] [address] [place], [place] [phone] Shruthi Esparza Social History Tobacco Use Types [...] Description 01/11/2025 9:15 AM EDT Office Visit [facility] [address] [place] [address] Marilu Reynoso FNP [address] [place] [address] 02/15/2025 3:00 PM EDT Office Visit [facility] [address] [place] [address] Edil, Ellyn, OD [address] [place] [address] 05/26/2025 1:00 PM EDT Office Visit [facility] [address] [place] [address] Santo, Marlee [address] [place] [address] documented as of this encounter Visit Diagnoses Not on filedocumented in this encounter Additional Health Concerns Assessment Noted Time PHQ-9 Depression Total Score: 16 023 1:53 PM EDT documented as of this encounter Care Teams Aquaculture And Fisheries Professor Relationship Specialty Start Date End Date Marilu Reynoso FNP [address] [place] [address] PCP - General Family Medicine 01/02/22 Raissa To PharmD [address] [place] [address] Pharmacist Internal Medicine 06/17/24 Lisset Varner Etl Lead 04/08/24 07/08/24 documented as of this encounter
--- OUTSIDE RECORDS SUMMARY | 2024-11-21 18:58 | XMS_ITS | Encounter Summary ---
Author Organization [employer] Address [address] [facility] 7t [place] [address] Care Team Providers Care Designer And Patternmaker Name Role Phone Marilu Reynoso MUSIC ADAPTER Primary Care Provider [phone] Raissa To PharmD Unavailable [phone] Reason for Visit * Reason Comments Med Refill Encounter Details Date Type Department Care Team ([facility] Contact Info) Description 06/08/2023 Telephone [facility] [address] [place], [place] [phone] Name, MD Lexx [address] [place], [place] [phone] Med Refill Social History Tobacco Use Types [...] EST ----- Would you mind setting up [facility] pulmonology appointment for patient? documented in this encounter Plan of Treatment Upcoming Encounters Date Type Department Care Team (Late st Contact Info) Description 01/11/2025 9:15 AM EDT Office Visit [facility] [address] [place] [address] Marilu Reynoso FNP [address] [place] [address] 02/15/2025 3:00 PM EDT Office Visit [facility] [address] [place] [address] Edil, Ellyn, OD [address] [place] [address] 05/26/2025 1:00 PM EDT Office Visit [facility] [address] [place] [address] Santo, Marlee [address] [place] [address] documented as of this encounter Visit Diagnoses Diagnosis Essential hypertension Unspecified essential hypertension documented in this encounter Additional Health Concerns Assessment Noted Time PHQ-9 Depression Total Score: 16 023 1:53 PM EDT documented as of this encounter Care Teams Designer And Patternmaker Relationship Specialty Start Date End Date Marilu Reynoso FNP [address] [place] [address] PCP - General Family Medicine 01/02/22 Raissa To, Rafia [address] [place] [address] Pharmacist Internal Medicine 06/17/24 Lisset Varner Nuclear Physics Professor 04/08/24 07/08/24 documented as of this encounter
--- OUTSIDE RECORDS SUMMARY | 2024-11-21 18:58 | XMS_ITS | Encounter Summary ---
Author Organization [employer] Address [address] [place] [address] Care Team Providers Care Control Room Tender Name Role Phone Marilu Reynoso BUSINESS SERVICES SALES REPRESENTATIVE Primary Care Provider [phone] Raissa To PharmD Unavailable [phone] Encounter Details Date Type Department Care Team (Late st Contact Info) Description 11/25/2023 Orders Only [facility] [address] [place] [address] Provider, MD Yessenia Social History Tobacco Use [...] Office Visit [facility] [address] [place] [address] [place], [place], BUSINESS SERVICES SALES REPRESENTATIVE [address] [place] [address] 02/15/2025 3:00 PM EDT Office Visit [facility] [address] [place] [address] Edil, Ellyn, OD 230 [place] [address] 05/26/2025 1:00 PM EDT Office Visit [facility] AD[facility] D[facility] [address] [place] [address] Santo, Marlee [address] [place] [address] documented as of this encounter Procedures Procedure Name Priority Date/Time Associated Diagnosis Comments HM COLONOSCOPY Routine 06/28/2019 8:54 AM EST documented in this encounter Results * Hm Colonoscopy (06/28/2019 8:54 AM EST) us Historical Provider HEALTH MAINTENANCE Final Result documented in this encounter Visit Diagnoses Not on filedocumented in this encounter Additional Health Concerns Assessment Noted Time PHQ-9 Depression Total Score: 16 023 12:28 PM EST documented as of this encounter Care Teams Control Room Tender Relationship Specialty Start Date End Date Marilu Reynoso FNP [address] [place] [address] PCP - General Family Medicine 01/02/22 Raissa To PharmD [address] [place] [address] Pharmacist Internal Medicine 06/17/24 Lisset Varner Lifestyle Block Farmer 04/08/24 07/08/24 documented as of this encounter
--- OUTSIDE RECORDS SUMMARY | 2024-11-21 18:58 | XMS_ITS | Encounter Summary ---
Author Organization [facility] Address [address] [place] [address] 7t [place] [address] Care Team Providers Care Hedis Manager Name Role Phone Marilu Reynoso SOLDERING MACHINE OPERATOR Primary Care Provider [phone] Raissa To PharmD Unavailable [phone] Reason for Referral * Consultation (Routine) - Authorized Specialty Diagnoses / Procedures Referred By Shane hubbard Referred To Contact Pharmacy Diagnoses Type 2 diabetes mellitus with hyperglycemia, with long-term current use of insulin (CMS/HCC) Genesis Peacock MD [address] [place] [address] Phone: tel: fax: Referral ID Status Reason Start Date Expiration Date Visits Requested Visits Authorized [id number] Authorized Consult and Treat 06/19/2024 06/19/2025 6 6 Encounter Details Date Type Department Care Team (Late st Contact Info) Description 06/19/2024 Orders Only [facility] [address] [place] [address] Genesis Peacock MD [address] [place] [address] Type 2 diabetes mellitus with hyperglycemia, with [...] [facility] [address] [place] [address] [place], [place], [facility] [address] [place] [address] 02/15/2025 3:00 PM EDT Office Visit [facility] [address] [place] [address] Edil, Ellyn, OD [address] [place] [address] 05/26/2025 1:00 PM EDT Office Visit [facility] AD[facility] DENT[facility] [address] [place] [address] Santo, Marlee [address] [place] [address] Scheduled Referrals Name Type Priority Associated Diagnoses Orde r Schedule Referral to Pharmacy CDTM Outpatient Referral Routine Type 2 diabetes mellitus with hyperglycemia, with long-term current use of insulin ([facility]) Ordered: 06/19/2024 documented as of this encounter Visit Diagnoses Diagnosis Type 2 diabetes mellitus with hyperglycemia, with long-term current use of insulin (CMS/[facility])- Primary documented in this encounter Additional Health Concerns Assessment Noted Time PHQ-9 Depression Total Score: 24 024 11:18 AM EDT documented as of this encounter Care Teams Hedis Manager Relationship Specialty Start Date End Date [facility] [address] [place] [address] PCP - General Family Medicine 01/02/22 Raissa To PharmD [address] [place] [address] Pharmacist Internal Medicine 06/17/24 Lisset Varner Chute Puller 04/08/24 07/08/24 documented as of this encounter
--- OUTSIDE RECORDS SUMMARY | 2024-11-21 18:58 | XMS_ITS | Encounter Summary ---
Author Organization [employer] Address [address] [facility] [place] [address] Care Team Providers Care Coal Deliverer Name Role Phone [place], [facility] Primary Care Provider [phone] Raissa To PharmD Unavailable [phone] Encounter Details Date Type Department Care Team (Late st Contact Info) Description 06/10/2023 Abstract [facility] [address] [place], [place] [phone] [place], [facility] [address] [place], [place] [phone] Social History Tobacco Use Types Packs/Day Years [...] Description 01/11/2025 9:15 AM EDT Office Visit [facility] [address] [place] [address] Marilu Reynoso FNP [address] [place] [address] 02/15/2025 3:00 PM EDT Office Visit [facility] [address] [place] [address] Edil, Ellyn, OD 230 [place] [address] 05/26/2025 1:00 PM EDT Office Visit [facility] [address] [place] [address] Santo, Marlee [address] [place] [address] documented as of this encounter Visit Diagnoses Not on filedocumented in this encounter Additional Health Concerns Assessment Noted Time PHQ-9 Depression Total Score: 16 023 1:53 PM EDT documented as of this encounter Care Teams Coal Deliverer Relationship Specialty Start Date End Date Marilu Reynoso FNP [address] [place] [address] PCP - General Family Medicine 01/02/22 Raissa To, ConsueloD [address] [place] [address] Pharmacist Internal Medicine 06/17/24 Lisset Varner Chief Unit Forester 04/08/24 07/08/24 documented as of this encounter
--- OUTSIDE RECORDS SUMMARY | 2024-11-21 18:58 | XMS_ITS | Encounter Summary ---
Author Organization [employer] Address [address] [facility]t [place] [address] Care Team Providers Care Dowel Pointer Name Role Phone [place] [facility] Primary Care Provider [phone] Raissa To PharmD Unavailable [phone] Reason for Visit * Reason Comments Med Refill Encounter Details Date Type Department Care Team ([facility] st Contact Info) Description 08/13/2024 Refill [facility] MED [facility] PEDS [address] [place], [place] [phone] [facility] [address] [place] [address] Thoracic back pain, unspecified back pain laterality, [...] the past 12 months, has t he [employer], gas, oil or water company threatened to [...] Description 01/11/2025 9:15 AM EDT Office Visit [facility] MEDICINE [address] [place] [address] [place], [place], CONTROLLER OPERATIONS AND HR MANAGER 230 [place] [address] 02/15/2025 3:00 PM EDT Office Visit [facility] OPTOMETRY [address] [place] [address] Edil, Ellyn, OD 230 [place] [address] 05/26/2025 1:00 PM EDT Office Visit [facility] ADULT DENTAL [address] [place] [address] Santo Marlee 230 [place] [address] documented as of this encounter Visit Diagnoses Diagnosis Thoracic back pain, unspecified back pain laterality, unspecified chronicity Mood disorder (CMS/HCC) Unspecified episodic mood disorder documented in this encounter Additional Health Concerns Assessment Noted Time PHQ-9 Depression Total Score: 9 07/18/20 24 1:40 PM EST documented as of this encounter Care Teams Dowel Pointer Relationship Specialty Start Date End Date Marilu ReynosoCANDIS 230 [place] [address] PCP - General Family Medicine 01/02/22 Raissa To PharmD 230 [place] [address] Pharmacist Internal Medicine 06/17/24 documented as of this encounter
[2024-11-22 11:04] LABS: Bacterial Vaginosis PCR POSITIVE (Negative); Candida Group PCR NOT DETECTED (Not Detect); Candida glab krusei PCR NOT DETECTED (Not Detect); Trichomonas vaginalis PCR NOT DETECTED (Not Detect)
== END 2024-11-21 17:59 | disposition home or self-care (01) ==
LOC: HO.HHCLNP 17:58
PROVIDERS: Visit Provider Registered Nurse
DX: N89.8 Other specified noninflammatory disorders of vagina (principal)
CPT/HCPCS: 81515

== ENCOUNTER 2024-11-30 15:22 | Outpatient (REF) | payer MEDICAID, SELFPAY ==
--- OUTSIDE RECORDS SUMMARY | 2024-11-30 17:58 | XMS_ITS | Encounter Summary ---
Author Organization [employer] Address [address] [facility] [address] 7t [place] [address] Care Team Providers Care Dedicated Regional Driver Name Role Phone [facility] Primary Care Provider [phone] Raissa To PharmD Unavailable [phone] Reason for Visit * Reason Onset Date Comments VNA 11/24/2024 Encounter Details Date Type Department Care Team (Late st Contact Info) Description 11/24/2024 Telephone [facility] 230 [place], [place] [phone] [facility] 230 [place], [place] [phone] VNA Social History Tobacco Use Types Packs/Day Years [...] encounter Miscellaneous Notes * Telephone Encounter - Urszula Harper RN - 11/28/2024 11:41 AM EDT S SOC visit will be tomorrow. * Telephone Encounter - Urszula Harper RN - 11/24/2024 9:19 AM EDT Noted. RN has generated order for VNA services for medication management and VS monitoring. PCP hassigned and RN has provided referral with order, OV note, medication list and facesheet to [facility] with [facility]. RN will update with SOC date. ----- Message from [facility] sent at 11/23/2024 4:32 PM EDT ----- Hi team! Could we do a VNA referral for insulin administration for Shannon??? documented in this encounter Plan of Treatment Upcoming Encounters Date Type Department Care Team (Late st Contact Info) Description 12/02/2024 2:00 PM EDT Medication Management [facility] MEDICINE [address] [place] [address] Raissa To PharmD 230 [place] [address] 01/11/2025 9:15 AM EDT Office Visit [facility] [address] [place] [address] [place] [facility] 230 [place] [address] 02/15/2025 3:00 PM EDT Office Visit [facility] OPTOMETRY [address] [place] [address] Edil, Ellyn, OD 230 [place] [address] 05/26/2025 1:00 PM EDT Office Visit [facility] ADULT DENTAL 230 [place] [address] Santo, Marlee 230 [place] [address] documented as of this encounter Visit Diagnoses Not on filedocumented in this encounter Additional Health Concerns Assessment Noted Time PHQ-9 Depression Total Score: 7 11/22/19 25 3:30 PM EDT documented as of this encounter Care Teams Dedicated Regional Driver Relationship Specialty Start Date End Date [place] Marilu [facility] [address] [place] [address] PCP - General Family Medicine 01/02/22 Raissa To PharmD [address] [place] [address] Pharmacist Internal Medicine 06/17/24 documented as of this encounter
--- OUTSIDE RECORDS SUMMARY | 2024-11-30 17:58 | XMS_ITS | Encounter Summary ---
Author Organization [employer] Address [address] [facility] [address] 7t [place] [address] Care Team Providers Care Circle Cutting Saw Operator Name Role Phone Marilu Reynoso RETAIL SALES ASSOCIATE BILINGUAL Primary Care Provider [phone] Raissa To PharmD Unavailable [phone] Encounter Details Date Type Department Care Team (Late st Contact Info) Description 07/14/2023 Abstract [facility] MEDICINE 230 [place], [place] [phone] Srhuthi Esparza Social History Tobacco Use Types Packs/Day [...] Description 12/02/2024 2:00 PM EDT Medication Management [facility] MEDICINE 230 [place] [address] Raissa To PharmD 230 [place] [address] 01/11/2025 9:15 AM EDT Office Visit [facility] MED[facility]INE 230 [place] [address] [place], Marilu, RETAIL SALES ASSOCIATE BILINGUAL 230 [place] [address] 02/15/2025 3:00 PM EDT Office Visit [facility] OPTOMETRY [address] [place] [address] Edil, Ellyn, OD 230 [place] [address] 05/26/2025 1:00 PM EDT Office Visit [facility] ADULT DENTAL 230 [place] [address] Santo, Marlee 230 [place] [address] documented as of this encounter Visit Diagnoses Not on filedocumented in this encounter Additional Health Concerns Assessment Noted Time PHQ-9 Depression Total Score: 16 023 1:53 PM EDT documented as of this encounter Care Teams Circle Cutting Saw Operator Relationship Specialty Start Date End Date [place] Marilu, RETAIL SALES ASSOCIATE BILINGUAL 230 [place] [address] PCP - General Family Medicine 01/02/22 Raissa To, Rafia 230 [place] [address] Pharmacist Internal Medicine 06/17/24 Lisset Varner Bulk Receiver 04/08/24 07/08/24 documented as of this encounter
--- OUTSIDE RECORDS SUMMARY | 2024-11-30 17:58 | XMS_ITS | Encounter Summary ---
Author Organization [employer] Address [address] [facility] [address] 7t [place] [address] Care Team Providers Care Insights Strategist Name Role Phone Marilu Reynoso WIRE STOCKKEEPER Primary Care Provider [phone] Raissa To PharmD Unavailable [phone] Encounter Details Date Type Department Care Team (Late st Contact Info) Description 11/10/2024 Orders Only [facility] MEDICINE 230 [place], [place] [phone] Leighann Tran NP 230 [place], [place] [phone] Bacterial vaginosis (Primary Dx) Social History Tobacco [...] Description 12/02/2024 2:00 PM EDT Medication Management [facility] MEDICINE 230 [place] [address] Raissa To, PharmD [address] [place] [address] 01/11/2025 9:15 AM EDT Office Visit [facility] MEDICINE 230 [place] [address] [place], Marilu, WIRE STOCKKEEPER [address] [place] [address] 02/15/2025 3:00 PM EDT Office Visit [facility] OPTOMETRY [address] [place] [address] Ellyn Solo, OD 230 [place] [address] 05/26/2025 1:00 PM EDT Office Visit [facility] ADULT DENTAL 230 [place] [address] Marlee Blanchard 230 [place] [address] documented as of this encounter Visit Diagnoses Diagnosis Bacterial vaginosis- Primary Unspecified vaginitis and vulvovaginitis documented in this encounter Additional Health Concerns Assessment Noted Time PHQ-9 Depression Total Score: 9 07/18/20 24 1:40 PM EST documented as of this encounter Care Teams Insights Strategist Relationship Specialty Start Date End Date Marilu Reynoso FNP 230 [place] [address] PCP - General Family Medicine 01/02/22 Raissa To PharmD [address] [place] [address] Pharmacist Internal Medicine 06/17/24 documented as of this encounter
--- OUTSIDE RECORDS SUMMARY | 2024-11-30 17:58 | XMS_ITS | Encounter Summary ---
Author Organization [employer] Address [address] [facility] [address] 7t [place] [address] Care Team Providers Care Bright Cutter Name Role Phone [place] [facility] Primary Care Provider [phone] Raissa To PharmD Unavailable Reason for Visit * Reason Comments Med Refill Encounter Details Date Type Department Care Team ([facility] st Contact Info) Description 08/13/2024 Refill [facility] CHC MED & PEDS [address] [place], [place] [phone] [facility] [address] [place] [address] Thoracic back pain, unspecified back pain laterality, [...] the past 12 months, has t he [employer], gas, oil or water [employer] threatened to shut off services in your [...] Description 12/02/2024 2:00 PM EDT Medication Management [facility] MEDICINE 230 [place] [address] Raissa To, PharmD 230 [place] [address] 01/11/2025 9:15 AM EDT Office Visit [facility] MEDICINE 230 [place] [address] [place], Marilu, HORTICULTURE TEACHER 230 [place] [address] 02/15/2025 3:00 PM EDT Office Visit [facility] OPTOMETRY [address] [place] [address] Edil, Ellyn, OD 230 [place] [address] 05/26/2025 1:00 PM EDT Office Visit [facility] ADULT DENTAL 230 [place] [address] Marlee Blanchard [address] [place] [address] documented as of this encounter Visit Diagnoses Diagnosis Thoracic back pain, unspecified back pain laterality, unspecified chronicity Mood disorder (CMS/HCC) Unspecified episodic mood disorder documented in this encounter Additional Health Concerns Assessment Noted Time PHQ-9 Depression Total Score: 9 07/18/20 24 1:40 PM EST documented as of this encounter Care Teams Bright Cutter Relationship Specialty Start Date End Date Marilu Reynoso FNP 230 [place] [address] PCP - General Family Medicine 01/02/22 Raissa To, Rafia [address] [place] [address] Pharmacist Internal Medicine 06/17/24 documented as of this encounter
--- OUTSIDE RECORDS SUMMARY | 2024-11-30 17:58 | XMS_ITS | Encounter Summary ---
Author Organization [employer] Address [address] [facility] [address] 7t [place] [address] Care Team Providers Care Oil Burner Mechanic Name Role Phone [place] Marilu [facility] Primary Care Provider [phone] Raissa To PharmD Unavailable [phone] Reason for Visit * Reason Onset Date Comments PT1 11/29/2024 Encounter Details Date Type Department Care Team (Late st Contact Info) Description 11/29/2024 Telephone [facility] MEDICINE 230 [place], [place] [phone] [facility] 230 [place], [place] [phone] PT1 Social History Tobacco Use Types Packs/Day Years [...] encounter Miscellaneous Notes * Telephone Encounter - Loulou Yeni Ashley - 11/29/2024 2:26 PM EDT 1 of 3 Patient calling requesting PT1 Home Address verified: Y/N: Yes Provider name or facility name: [facility] : [facility] [address] [place] [address] Escort needed: Y/N: Yes Do you have a wheelchair: Y/N: No If yes- Manual or electric: N/A Visits: (2x monthly) 2 of 3 Patient calling requesting PT1 Home Address verified: Y/N: Yes Provider name or facility name: [facility][1] [address], [address], [place] [address] Escort needed: Y/N: Yes Do you have a wheelchair: Y/N: No If yes- Manual or electric: N/A Visits: (2x weekly) 3 of 3 Patient calling requesting PT1 Home Address verified: Y/N: Yes Provider name or facility name: [facility], [address] [place] [address] 3rd [place] [address]. Escort needed: Y/N: Yes Do you have a wheelchair: Y/N: No If yes- Manual or electric: N/A Visits: (2x monthly) documented in this encounter Plan of Treatment Upcoming Encounters Date Type Department Care Team (Late st Contact Info) Description 12/02/2024 2:00 PM EDT Medication Management [facility] MED[facility]INE 230 [place] [address] Raissa To PharmD 230 [place] [address] 01/11/2025 9:15 AM EDT Office Visit [facility] MEDICINE [address] [place] [address] Marilu Reynoso FNP 230 [place] [address] 02/15/2025 3:00 PM EDT Office Visit [facility] OPTOMETRY [address] [place] [address] Edil, Ellyn, OD 230 [place] [address] 05/26/2025 1:00 PM EDT Office Visit [facility] ADULT DENTAL 230 [place] [address] Santo, Marlee 230 [place] [address] documented as of this encounter Visit Diagnoses Not on filedocumented in this encounter Additional Health Concerns Assessment Noted Time PHQ-9 Depression Total Score: 7 11/22/19 25 3:30 PM EDT documented as of this encounter Care Teams Oil Burner Mechanic Relationship Specialty Start Date End Date Marilu Reynoso FNP 230 [place] [address] PCP - General Family Medicine 01/02/22 Raissa To PharmD [address] [place] [address] Pharmacist Internal Medicine 06/17/24 documented as of this encounter
--- OUTSIDE RECORDS SUMMARY | 2024-11-30 17:58 | XMS_ITS | Encounter Summary ---
Author Organization [employer] [facility] Address 75 [facility] 7t [place] [address] Care Team Providers Care Order Filler Name Role Phone Marilu Reynoso DAIRY SCIENCE TEACHER Primary Care Provider Raissa To PharmD Unavailable Reason for Visit * Reason Onset Date Comments Appointment 10/21/2022 Encounter Details Date Type Department Care Team (Late st Contact Info) Description 10/21/2022 Telephone [facility] ADULT DENTAL 230 [place], [place] [phone] Luiz Moody DDS 230 [place], [place] [phone] Appointment Social History Tobacco Use Types Packs/Day [...] Description 12/02/2024 2:00 PM EDT Medication Management [facility] MEDICINE 230 [place] [address] Raissa To, PharmD 230 [place] [address] 01/11/2025 9:15 AM EDT Office Visit [facility] [address] [place] [address] [place], Marilu, DAIRY SCIENCE TEACHER 230 [place] [address] 02/15/2025 3:00 PM EDT Office Visit [facility] OPTOMETRY [address] [place] [address] EdilEllyn haines, OD 230 [place] [address] 05/26/2025 1:00 PM EDT Office Visit [facility] ADULT DENTAL 230 [place] [address] Marlee Blanchard 230 [place] [address] documented as of this encounter Visit Diagnoses Not on filedocumented in this encounter Care Teams Order Filler Relationship Specialty Start Date End Date Marilu ReynosoCANDIS 230 [place] [address] PCP - General Family Medicine 01/02/22 Raissa To PharmD 230 [place] [address] Pharmacist Internal Medicine 06/17/24 Lisset Varner Studio Assistant 04/08/24 07/08/24 documented as of this encounter
--- OUTSIDE RECORDS SUMMARY | 2024-11-30 17:58 | XMS_ITS | Encounter Summary ---
Author Organization [employer] Address [address] [facility] 7t [place] [address] Care Team Providers Care Clinical Study Manager Name Role Phone [facility] Primary Care Provider [phone] Raissa To PharmD Unavailable [phone] Reason for Visit * Reason Comments Med Refill Encounter Details Date Type Department Care Team (Late st Contact Info) Description 01/20/2024 Refill [facility] 230 [place], [place] [phone] [facility] 230 [place], [place] [phone] Thoracic back pain, unspecified back pain laterality, [...] Description 12/02/2024 2:00 PM EDT Medication Management [facility] 230 [place] [address] Raissa To, PharmD 230 [place] [address] 01/11/2025 9:15 AM EDT Office Visit [facility] 230 [place] [address] [place], Marilu, CONSTRUCTION ECONOMIST 230 [place] [address] 02/15/2025 3:00 PM EDT Office Visit [facility] OPTOMETRY [address] [place] [address] Ellyn Solo, OD 230 [place] [address] 05/26/2025 1:00 PM EDT Office Visit [facility] ADULT DENTAL 230 [place] [address] Marlee Blanchard 230 [place] [address] documented as of this encounter Visit Diagnoses Diagnosis Thoracic back pain, unspecified back pain laterality, unspecified chronicity documented in this encounter Additional Health Concerns Assessment Noted Time PHQ-9 Depression Total Score: 16 023 12:28 PM EST documented as of this encounter Care Teams Clinical Study Manager Relationship Specialty Start Date End Date [place] Marilu [facility] 230 [place] [address] PCP - General Family Medicine 01/02/22 Raissa To, Rafia 230 [place] [address] Pharmacist Internal Medicine 06/17/24 Lisset Varner Cadet Deck 04/08/24 07/08/24 documented as of this encounter
--- OUTSIDE RECORDS SUMMARY | 2024-11-30 17:58 | XMS_ITS | Encounter Summary ---
Author Organization [employer] Address [address] [facility] [address] 7t [place] [address] Care Team Providers Care Insurance Compliance Analyst Name Role Phone [place], Marilu [facility] Primary Care Provider [phone] Raissa To PharmD Unavailable [phone] Reason for Visit * Reason Onset Date Comments Appointment Request 06/29/2024 Encounter Details Date Type Department Care Team (Late st Contact Info) Description 06/29/2024 Telephone [facility] MEDICINE 230 [place], [place] [phone] [place] Marilu [facility] 230 [place], [place] [phone] Appointment Request Social History Tobacco Use Types [...] Description 12/02/2024 2:00 PM EDT Medication Management [facility] MED[facility]INE [address] [place] [address] Raissa To, PharmD 230 [place] [address] 01/11/2025 9:15 AM EDT Office Visit [facility] MEDICINE [address] [place] [address] Marilu Reynoso, CANDIS 230 [place] [address] 02/15/2025 3:00 PM EDT Office Visit [facility] OPTOMETRY [address] [place] [address] Edil, Ellyn, OD 230 [place] [address] 05/26/2025 1:00 PM EDT Office Visit [facility] ADULT DENTAL 230 [place] [address] Santo, Marlee [address] [place] [address] documented as of this encounter Visit Diagnoses Not on filedocumented in this encounter Additional Health Concerns Assessment Noted Time PHQ-9 Depression Total Score: 24 024 11:18 AM EDT documented as of this encounter Care Teams Insurance Compliance Analyst Relationship Specialty Start Date End Date Marilu Reynoso FNP 230 [place] [address] PCP - General Family Medicine 01/02/22 Raissa To, ConsueloD 230 [place] [address] Pharmacist Internal Medicine 06/17/24 Lisset Varner Clerical Office 04/08/24 07/08/24 documented as of this encounter
--- OUTSIDE RECORDS SUMMARY | 2024-11-30 17:58 | XMS_ITS | Encounter Summary ---
Author Organization [facility] Address [address] [place] [address] 7t [place] [address] Care Team Providers Care Car Worker Helper Name Role Phone Marilu Reynoso CAR REPAIRER PULLMAN Primary Care Provider [phone] Raissa To PharmD Unavailable [phone] Reason for Referral * Consultation (Routine) - Authorized Specialty Diagnoses / Procedures Referred By Shane hubbard Referred To Contact Pharmacy Diagnoses Type 2 diabetes mellitus with hyperglycemia, with long-term current use of insulin (CMS/HCC) Genesis Peacock MD 230 [place] [address] Phone: tel: fax: Referral ID Status Reason Start Date Expiration Date Visits Requested Visits Authorized [id number] Authorized Consult and Treat 06/19/2024 06/19/2025 6 6 Encounter Details Date Type Department Care Team (Late st Contact Info) Description 06/19/2024 Orders Only [facility]INE 230 [place] [address] Genesis Peacock MD 230 [place] [address] Type 2 diabetes mellitus with hyperglycemia, with [...] Description 12/02/2024 2:00 PM EDT Medication Management [facility] 230 [place] [address] Raissa To, PharmD 230 [place] [address] 01/11/2025 9:15 AM EDT Office Visit [facility] [address] [place] [address] [facility] 230 [place] [address] 02/15/2025 3:00 PM EDT Office Visit [facility] OPTOMETRY [address] [place] [address] Edil, Ellyn, OD 230 [place] [address] 05/26/2025 1:00 PM EDT Office Visit [facility] ADULT DENTAL 230 [place] [address] Prosper Blanchardaris 230 [place] [address] Scheduled Referrals Name Type Priority Associated Diagnoses [...] documented as of this encounter Care Teams Car Worker Helper Relationship Specialty Start Date End Date [facility] 230 [place] [address] PCP - General Family Medicine 01/02/22 Raissa To PharmD [address] [place] [address] Pharmacist Internal Medicine 06/17/24 Lisset Varner Research Contracts Supervisor 04/08/24 07/08/24 documented as of this encounter
--- OUTSIDE RECORDS SUMMARY | 2024-11-30 17:58 | XMS_ITS | Encounter Summary ---
Author Organization [employer] Address 75 [facility] 7t [place] [address] Care Team Providers Care Market Development Manager Name Role Phone [place], [facility] Primary Care Provider [phone] Raissa To PharmD Unavailable [phone] Reason for Visit * Reason Comments Care Coordination CHW outreach for SDO H PT-1 and food needs-referral completed Encounter Details Date Type Department Care Team (Latest Contact Info) Description 11/30/2024 Patient Outreach [facility] MEDICINE 230 [place], [place] [phone] [facility] 230 [place], [place] [phone] Care Coordination (CHW outreach for SDOH PT-1 and food needs-referral completed /) Social History Tobacco Use Types Packs/Day Years [...] as of this encounter Progress Notes * Dominic Lugo - 11/30/2024 9:29 AM EDT CHW Dominic Lugo, placed outbound call to patient for assistance with SDOH as a referral was received by the provider. Patient's name and were confirmed. Patient screened positive for the following SDOH food insecurities. CHW referral patient to the local list of pantries in the area for help. PT-1 requested was send out in behalf of patient for [facility] appt. Patient verbalizes understandin g, and able to agree with plan to follow up. Patient educated on extended clinic hours on Mondays through Wednesdays, and Walk-In Urgent Care Located in [facility] of [facility]. Patient provided with after-hours line for [facility], , which offer night time triage service and option to transfer to section gang worker provider if needed. documented in this encounter Plan of Treatment Upcoming Encounters Date Type Department Care Team (Late st Contact Info) Description 12/02/2024 2:00 PM EDT Medication Management [facility] MEDICINE [address] [place] [address] Raissa To PharmD [address] [place] [address] 01/11/2025 9:15 AM EDT Office Visit [facility] MEDICINE [address] [place] [address] Marilu Reynoso [facility] 230 [place] [address] 02/15/2025 3:00 PM EDT Office Visit [facility] OPTOMETRY [address] [place] [address] Edil, Ellyn, OD 230 [place] [address] 05/26/2025 1:00 PM EDT Office Visit [facility] ADULT DENTAL 230 [place] [address] Santo, Marlee 230 [place] [address] documented as of this encounter Visit Diagnoses Not on filedocumented in this encounter Additional Health Concerns Assessment Noted Time PHQ-9 Depression Total Score: 7 11/22/19 25 3:30 PM EDT documented as of this encounter Care Teams Market Development Manager Relationship Specialty Start Date End Date [place] Marilu [facility] [address] [place] [address] PCP - General Family Medicine 01/02/22 Raissa To PharmD [address] [place] [address] Pharmacist Internal Medicine 06/17/24 documented as of this encounter
--- OUTSIDE RECORDS SUMMARY | 2024-11-30 17:58 | XMS_ITS | Clinical Summary ---
Author Organization [employer] Address [address] [place] [address] Care Team Providers Care Cardiac Exercise Specialist Name Role Phone Marilu Reynoso REEL REPAIRER Primary Care Provider [phone] Raissa To PharmD Unavailable Allergies Active Allergy [...] hyperglycemia, with long-term current use of insulin ([facility]) USE TO CLEAN SKIN BEFORE INJECTION DIRECTED 100 each 11 Active glucose blood (FREESTYLE LITE) test stripIndication s:Type 2 diabetes mellitus with hyperglycemia, with long-term current use of insulin ([facility]) USE DIRECTED TO TEST BLOOD SUGAR FOUR TIMES DAILY 100 strip 11 Active insulin pen needle ([employer] SafePack Pen Needle) 32G x 4 mm miscIndications :Type 2 diabetes mellitus with hyperglycemia, with long-term current use of insulin ([facility]) USE DIRECTED WITH INSULIN 100 each Active TRUEplus Lancets 33G miscIndications :Type 2 diabetes mellitus with hyperglycemia, with long-term current use of insulin ([facility]) USE DIRECTED TO TEST BLOOD SUGAR FOUR TIMES DAILY 100 each 024 Active levothyroxine (Synthroid, Levoxyl) 75 MCG tablet TAKE 1 TABLET BY MOUTH EVERY MORNING 90 tablet 3 024 Active olmesartan (BENIcar) 20 MG tablet TAKE 1 TABLET BY MOUTH EVERY MORNING 90 tablet 3 024 Active Continuous Glucose Solar Process Engineer (FreeStyle Stevo 2 Packwood) deviceIndicatio ns:Type 2 diabetes mellitus with hyperglycemia, with long-term current use of insulin ([facility]) For monitoring interstitial glucose every 8 hours and as needed 1 each Active Continuous Glucose Sensor (FreeStyle Stevo 2 Sensor) miscIndications :Type 2 diabetes mellitus with hyperglycemia, with long-term current use of insulin ([facility]) Test blood sugar every 8 hours and as needed 2 each 3 Active glucose blood (FreeStyle Precision Dylan Test) test stripIndication s:Type 2 diabetes mellitus with hyperglycemia, with long-term current use of insulin ([facility]) Test blood sugar every 8 hours and [...] a, with long-term current use of insulin ([facility]) Take 1 tablet (10 mg) by mouth Once per day. 30 tablet 024 2024 Active predniSONE (Deltasone) 20 MG tabletIndicatio ns:Adhesive capsulitis of left shoulder 2 tabs po daily for 5 days 10 tablet Active Alcohol Swabs (Alcohol Prep) padsIndications :Type 2 diabetes mellitus with diabetic microalbuminuri a, with long-term current use of insulin ([facility]) Use one pad each to prep skin [...] a, with long-term current use of insulin ([facility]) Use as directed to check blood sugar four times daily 1 each 025 Active glucose blood test stripIndication s:Type 2 diabetes mellitus with diabetic microalbuminuri a, with long-term current use of insulin ([facility]) Use as directed to check blood sugar four times daily 100 each 12 025 Active insulin pen needle 32G x 4 mm miscIndications :Type 2 diabetes mellitus with diabetic microalbuminuri a, with long-term current use of insulin ([facility]) Use as instructed to inject insulin 4 times daily 120 each 025 2025 Active Continuous Glucose Solar Process Engineer (FreeStyle Stevo 3 Packwood) deviceIndicatio ns:Type 2 diabetes mellitus with diabetic microalbuminuri a, with long-term current use of insulin ([facility]) 1 each Once per day. Use as directed for CGM 1 each 025 Active Continuous Glucose Sensor (FreeStyle Stevo 3 Plus Sensor) miscIndications :Type 2 diabetes mellitus with diabetic microalbuminuri a, with long-term current use of insulin ([facility]) 1 each every 15 days. Apply 1 every 15 days as directed for CGM 2 each Active glucose blood (FreeStyle Precision Dylan Test) test stripIndication s:Type 2 diabetes mellitus with diabetic microalbuminuri a, with long-term current use of insulin ([facility]) Use to test blood sugar 4 times daily in case of CGM failure or extremes of BG 100 each 025 2025 Active famotidine (Pepcid) 20 MG tabletIndicatio ns:Dyspepsia Take 1 tablet (20 mg) by mouth 2 times daily. 60 tablet 025 2025 Active QUEtiapine (SEROquel) 200 MG tabletIndicatio ns:Mood disorder ([facility]) TAKE 1 TABLET BY MOUTH AT BEDTIME [...] hyperglycemia, with long-term current use of insulin ([facility]) Inject subcutaneously 26 units once daily 3 mL 1 025 Active insulin lispro (HumaLOG KWIKPEN) 100 UNIT/ML injectionIndica tions:Type 2 diabetes mellitus with hyperglycemia, with long-term current use of insulin ([facility]) inject by subcutaneous route per the following [...] per week. PLEASE REVIEW TEACHING 1 each 12 Active insulin lispro (HumaLOG KWIKPEN) 100 UNIT/ML injectionIndica tions:Type 2 diabetes mellitus with hyperglycemia, with long-term current use of insulin (CMS/HCC) inject by subcutaneous route per the following [...] long-term current use of insulin (CMS/HCC) Inject subcutaneously 24 units once daily 024 2024 Discontinued(R eorder (will not trigger notification to Pharmacy)) metroNIDAZOLE (Flagyl) 500 MG tabletIndicatio ns:Bacterial vaginosis Take 1 tablet (500 mg) by mouth 2 times daily for 7 days. 14 tablet 025 2024 metroNIDAZOLE (Metrogel) 0.75 % vaginal gelIndications: Bacterial vaginosis Insert into the vagina at bedtime for 5 days. 70 g 025 2024 Active Problems Problem Noted Date Diagnosed Date [...] 2:27 PM EST): -gave number to call [facility] Healthcare maintenance 03/03/2023 Overview (02/19/2024): Pap: 2-18, HPV neg NIL-->overdue for repeat. Will schedule appointment today Mammogram: Pt missed multiple appointments--she needs to call to reschedule BMD: Routine age 65 LDLCT: Accepts referral to [facility] CRC: Has not complete previous GI referrals [...] Exam: 07/2023 Risk 1 Eye Exam: 06/2023 [facility] Lipid panel: 02/2023 Microalbumin:creatinine ratio: 42.5 02/2023 [...] CGM sensor resent ?? Will refer to [facility] DM educator ?? Will hold off on [...] ?? New BP kit sent to pharmacy intermediate project manager (current) use of insulin 06/26/2015 Chronic major depressive disorder, single episod e 05/23/2015 Overview (03/06/2023): - Seroquel 150mg every evening for help with sleep - Sertraline 50mg - Psychiatric history unclear. ?bipolar disorder - Hx of suicidal ideation and psych hospitalization - Referred to [facility], per chart note, contact attempt was made. Patient needs to call back Assessment & Plan (06/21/2023 6:33 AM EST): - Resubmit referral to ([facility]) - Contact HC if sx worsen or experiencing thoughts of SI or self harm. Pt has [facility] crisis contact information Hyperlipidemia 05/23/2015 Hypothyroidism [...] through. Provided patient and her daughter with [facility] pulmonology phone number to call and schedule initial appointment. - ED precautions reviewed Assessment & Plan (03/06/2023 1:10 PM EDT): ?? Persistent diffuse wheezing ?? Will re-submit referral to pulmonology Resolved Problems Problem Noted Date Diagnosed Date Resolved Date Microalbuminuria due to type 2 diabetes mellitus ([facility]) 04/25/2023 02/19/2024 Periodontal disease 10/23/2022 03/03/20 23 Dental caries 10/23/2022 03/03/2023 History of severe acute resp iratory syndrome coronavirus 2 (SARS-CoV-2) disease 09/24/202002/18 Thoracic back pain 01/18/2018 3 Allergic rhinitis 06/02/2016 03/06/2023 Encounters * This document contains information received from the source organization and may not represent a complete record from that organization. Date Type Department Care Team Description 11/30/2024 Patient Outreach [facility] MEDICINE [address] [place] [address] Marilu Reynoso FNP Care Coordination (CHW outreach for SDOH PT-1 and food needs-referral completed /) 11/29/2024 Telephone [facility] [address] [place] [address] Marilu Reynoso FNP PT1 11/24/[address] [address] Marilu Reynoso REEL REPAIRER Results 11/24/[address] [place] [address] [place] DAVID MichelP VNA 11/23/2024 Orders Only [facility] W[facility] [address] [place] [address] Marilu Reynoso FNP Bacterial vaginosis (Primary Dx) 11/22/[address] [address] Marilu Reynoso FNP Prior Authorization ( [place] Request: Ozempic) 11/22/[address] [address] Marilu Reynoso FNP Prior Authorization ( PA Request: Ozempic) 11/21/2024 1:45 PM EDT Office Visit [address] [place] [address] Marilu Reynoso FNP Vaginal itching (Primary Dx); Type 2 diabetes mellitus with hyperglycemia, with long-term current use of insulin ([facility]); Mood disorder ([facility]) 11/21/2024 Travel 11/14/2024 Telephone [facility] [address] [place] [address] Yeimy Tovar, GERMANIA Results 11/11/2024 Telephone [facility] [address] [place] [address] Yeimy Tovar, RN Results 11/11/2024 Telephone [facility] [address] [place] [address] Leighann Tran NP Results 11/10/2024 Telephone [facility] [address] [place] [address] Yeimy Tovar, GERMANIA Results 11/10/2024 Orders Only [address] [address] Leighann Tran NP Bacterial vaginosis (Primary Dx) 11/09/2024 Telephone [facility] [address] [facility] [place] [address] Marilu Reynoso FNP Results 11/03/2024 2:40 PM EDT Office Visit [facility] [address] [facility] [place] [address] Leighann Tran NP Acute cystitis without hematuria (Primary Dx); Vagina itching 11/02/2024 Telephone [facility] [address] [place] [address] Marilu Reynoso FNP Results 11/02/2024 Orders Only [facility] [address] [place] [address] Marilu Reynoso FNP 10/28/[address] [address] Marilu Reynoso FNP Lab Orders 10/28/2024 Population Health Risk Score [facility] () [address] [phone] Provider, Population Health Generic 10/26/2024 Orders Only [facility] [address] [place] [address] Marilu Reynoso FNP 10/26/2024 Refill [facility] [address] [place] [address] Marilu Reynoso FNP Mood disorder (CMS/HCC); Thoracic back pain, unspecified back pain laterality, unspecified chronicity 10/26/[address] [address] Desirae Taylor, RN CGM PA 10/24/2024 1:00 PM EDT Office Visit [facility] [address] [place] [address] Marilu Reynoso FNP Type 2 diabetes mellitus with diabetic microalbuminuria, with long-term current use of insulin (CMS/HCC) (Primary Dx); Cystitis; Chronic diarrhea; Dyspepsia; Severe persistent asthma, unspecified whether complicated; Essential hypertension; Dietary counseling; Exercise counseling 10/24/2024 Orders Only [address] [address] Marilu Reynoso FNP 10/24/2024 Travel 10/21/2024 Telephone [facility] OPTOMETRY [address] [place] [address] Ellyn Solo OD 10/18/2024 Telephone [facility] MEDICINE [address] [place] [address] GenoaMarilu [facility] 10/17/2024 Patient Outreach [facility] MED & PEDS [address] [place], [place] [phone] [place] [facility] Pre-visit Planning (SDOH unable to reach [facility] ) 09/23/2024 3:00 PM EST Office Visit [facility] [address] [place] [address] Laurence Parrish MD Adhesive capsulitis of left shoulder (Primary Dx); Mood disorder ([facility]) 09/23/2024 Refill [facility] [address] [place] [address] Name, MD Lexx Mood disorder ([facility]); Thoracic back pain, unspecified back pain laterality, [...] Description 12/02/2024 2:00 PM EDT Medication Management [facility] MEDICINE [address] [place] [address] Raissa To, PharmD [address] [place] [address] 01/11/2025 9:15 AM EDT Office Visit [facility] MEDICINE [address] [place] [address] [place], Marilu, REEL REPAIRER [address] [place] [address] 02/15/2025 3:00 PM EDT Office Visit [facility] OPTOMETRY [address] [place] [address] Ellyn Solo, OD [address] [place] [address] 05/26/2025 1:00 PM EDT Office Visit [facility] ADULT DENTAL [address] [place] [address] Marlee Blanchard [address] [place] [address] Health Maintenance Due Date Last Done Comments [...] Depression Screening 11/21/2025 11/21/2024, 11/22/19 Tobacco Screening 11/23/2025 11/23/2024 DTaP/Tdap/Td Vaccines (4 - Td or Tdap) [...] PM EDT Type 2 diabetes mellitus with hyperglycemia, with long-term current use of insulin ([facility]) BACTERIAL VAGINOSIS PANEL Routine 11/21/2024 2:21 PM EDT Vaginal itching POCT URINALYSIS DIPSTICK Routine 11/03/2024 3:13 PM [...] microalbuminuria, with long-term current use of insulin ([facility]) POCT GLYCATED HEMOGLOBIN, TOTAL Routine 10/24/2024 1:47 PM EDT Type 2 diabetes mellitus with diabetic microalbuminuria, with long-term current use of insulin ([facility]) XR SHOULDER 2+ VIEWS LEFT Routine 09/23/2024 [...] Relevant to Health Maintenance Results * (ABNORMAL) Bacterial Vaginosis Panel (11/21/2024 2:21 PM EDT) TRICHOMONAS VAGINALIS DETECTION BY PCR NOT DETECTED Not Detect [facility] BACTERIAL VAGINOSIS DETECTION BY PCR POSITIVE(A) Negative [facility] Comment:The BV organism targ ets of the Xpert Xpress MVP test can becommensal in women; Xpert Xpress MVP positive results forbacterial vaginosis should be considered in conjunction withother clinical and patient information to determine thedisease status. Organisms that are not detected by the XpertXpress MVP test have also been reported to be associatedwith BV and aerobic vaginitis.The Xpert Xpress MVP test performance has not been evaluatedin patients under the age of 14. ASTRID GROUP DETECTION BY PCR NOT DETECTED Not Detect [facility] Astrid glab krusei PCR NOT DETECTED Not Detect [facility] Swab Vaginal structure / Unknown 11/21/2024 2:21 PM EDT 11/21/2024 6:00 PM EDT [facility] MICROBIOLOGY - GENERAL OR DERABLES Final Result [facility] [address] [place] [phone] * (ABNORMAL) POCT Glucose (11/21/2024 2:21 PM EDT) Only the most recent of2 resultswithin the time period is included. Glucose Blood, POC 238(A) 60 - 200 mg/dL Blood Capillary blood specimen / Unknown 11/21/2024 2:21 PM EDT [facility] POINT OF CARE TEST ENTER/EDIT ORDERABLES Final [...] UA OK Urine 11/03/2024 3:13 PM EDT Leighann Tran SPECIAL EDUCATION EDUCATIONAL ASSISTANT POINT OF CARE TEST ENTER/EDIT O RDERABLES Final Result * (ABNORMAL) SureSwab?? Advanced Vaginitis Plus, TMA (11/03/2024 12:00 AM EDT) CTNG Ref Lab NOT DETECTED NOT DETECTED [facility] NG Ref Lab NOT DETECTED NOT DETECTED [facility] Comment:For additional infor mation, please refer tohttps://education.[employer]/faq/OKI288(This link is being provided for information/educational purposes only.)THIS TEST WAS PERFORMED AT:[address] [place] [phone] DIAZ MD SureSwab 9R) ADV Bacterial Vaginosis (BV), TMA POSITIVE(A ) NEGATIVE [facility] Astrid Species DETECTED(A ) NOT DETECTED [facility] Astrid glabrata DETECTED(A ) NOT DETECTED [facility] Comment:C. glabrata, which i s responsible for the majority ofnon-albicans CV in the [place] may have decreasedsusceptibility to standard antimycotic therapeuticintervention compared to C. albicans.Astrid species C. albicans, C. tropicalis,C. parapsilosis, and/or C. dubliniensis can be detected,but not differentiated, in the Astrid spp. result. Trichomonas vaginalis (TV), TMA NOT DETECTED NOT DETECTED [facility] 11/03/2024 11/03/2024 Leighann Tran NP LAB BODY FLUIDS AND STOOLS ARTURO HOWARD Final Result [facility] [address] [place] [address] [phone] * Culture, Urine, Routine (11/03/2024 12:00 AM EDT) Only the most recent of2 resultswithin the time period is included. Urine Urine specimen obtained by clean catch procedure / Unknown 11/03/2024 11/04/2024 12:25 PM EDT Comment:[facility] Narrative [facility] - 11/05/2024 12:29 PM EDT Urine Culture No growth. Specimen Source: Urine clean catch Leighann Mary SPECIAL EDUCATION EDUCATIONAL ASSISTANT LAB MICROBIOLOGY - GENERAL [facility] Final Result Performing Organization Address City/[facility] Co de Phone Number [facility] [address] [place] [phone] * Cancelled Serology (10/26/2024 2:30 PM EDT) Cancelled Serology SEE NOTE [facility] Comment:THE FOLLOWING TESTS WERE CANCELLED: FECAL GLOBINREASON: NO SUITABLE SPECIMEN RECEIVED; REQUIRES INSURE FOBTCARD 10/26/2024 2:30 PM EDT 10/26/2024 6:34 PM EDT [facility] REEL REPAIRER HISTORICAL/NON ORDERABLE LABS Final Result Performing Organization Address [facility] de Phone Number [facility] [address] [place] [phone] * Calprotectin, Stool (10/26/2024 2:30 PM EDT) Calprotectin,Fecal 22 mcg/g [facility] Comment:Reference Range: <50 Normal 50-120 Borderline >120 ElevatedCalprotectin in Crohn's disease and ulcerative colitis canbe five to several thousand times above the referencepopulation (50 mcg/g or less). Levels are usually 50 mcg/gor less in healthy patients and with irritable bowelsyndrome. Repeat testing in 4-6 weeks is suggested forborderline values.THIS TEST WAS PERFORMED AT:[employer] [id number] [place] [phone] PEREA MD,PHD,SHOSHANA Stool 10/26/2024 2:30 PM EDT 10/26/2024 6:34 PM EDT [facility] BODY FLUIDS AND STOOLS OR DERABLES Final Result Performing Organization Address [facility] Co de Phone Number [facility] [address] [place] [phone] * Helicobacter pylori??Antigen, EIA, Stool (10/26/2024 2:30 PM EDT) H pylori Ag Stool SEE NOTE [facility] Comment:HELICOBACTER PYLORI AG, EIA, STOOL Micro Number: [id number] Test Status: Final Specimen Source: Stool Specimen Quality: Adequate H.pylori Ag: Not Detected Antimicrobials, proton pump inhibitors, and bismuth preparations inhibit H. pylori and ingestion up to two weeks prior to testing may cause false negative results. If clinically indicated the test should be repeated on a new specimen obtained two weeks after discontinuing treatment. Reference Range: Not DetectedTHIS TEST WAS PERFORMED AT:[address] [place] [phone] DIAZ MD Stool Rectal contents / Unknown 10/26/2024 2:30 PM EDT 10/26/2024 6:34 PM EDT [facility] BODY FLUIDS AND STOOLS OR DERABLES Final Result Performing Organization Address [facility] Co de Phone Number [facility] [address] [place] [phone] * T-SPOT??.TB (10/24/2024 2:28 PM EDT) T Spot TB Negative Negative [facility] Comment:A negative test resu lt [...] as aquantitative test. TS PANEL A 0 [facility] TS PANEL B 0 [facility] Negative Control Passed [facility] Positive Control Passed [facility] Comment:For additional infor arpan, please refer tohttp://education.Your Last [employer]/faq/QYF997(This link is being provided for informational/educational purposes only.)THIS TEST WAS PERFORMED AT:[employer]/[id number] [place] [address]QARHSFZMESSI DESAI MD,PHD 10/24/2024 2:28 PM EDT 10/24/2024 4:07 PM EDT [facility] BLOOD ORDERABLES Final Re sult Performing Organization Address [facility]/ZIP Co de Phone Number [facility] [address] [place] [address] [phone] * (ABNORMAL) Vitamin B12 (10/24/2024 2:28 PM EDT) Vitamin B12 1,923(H) 200 - 900 pg/mL [facility] Comment:NORMAL 200-900 PG/ML INDETERMINATE 160-199 PG/ML DEFICIENT < 160 PG/ML 10/24/2024 2:28 PM EDT 10/24/2024 4:07 PM EDT [facility] BLOOD ORDERABLES Final Re sult [facility] [address] [place] [phone] * (ABNORMAL) POCT HGB A1C (10/24/2024 1:47 PM EDT) Hemoglobin A1C 9.9(A) 4.0 - 6.0 % Blood 10/24/2024 1:47 PM EDT [facility] REEL REPAIRER POINT OF CARE TEST ENTER/EDIT ORDERABLES Final Result * XR Shoulder 2+ Views Left (09/23/2024 3:06 PM EST) Anatomical Region Laterality Modality Upper Extremities, Shoulder Left Radi ographic Imaging 09/23/2024 3:06 PM EST Narrative 09/23/2024 3:26 PM EST ?[facility] ?[address] ?[place] [id number] ?XRay Report ? Signed ? Patient: Shannon Aviles ?MR#: [id number] ?? [id number] ? : 1970 ?Acct:[id number] ? Age/Sex: 54 / F ?ADM Date: 09/23/24 ? Loc: HO.HHCX ? Attending Dr: Laurence Parrish MD ? Ordering Physician: Laurence Parrish MD ?? Date of Service: 09/23/24 ?? Procedure(s): XR shoulder LT min 2V ?? Accession Number(s): [id number] ? cc: Laurence Parrish MD ? EXAMINATION: [...] DD/ 1506 ? TD/TT: 09/23/24 1521 ? Manager Workers Compensation: ? Procedure Note Donotamandater, Image - 09/23/2024 [facility] [address] [place] [address] XRay Report Signed Patient: Pamela Aviles#: [id number] : 1970Acct:[id number] Age/Sex: 54 / FADM Date: 09/23/24 Loc: HO.HHCX Attending Dr: Laurence Parrish MD Ordering Physician: Laurence Parrish MD Date of Service: 09/23/24 Procedure(s): XR shoulder LT min 2V Accession Number(s): [id number] cc: Laurence Parrish MD EXAMINATION: XR SHOULDER [...] 09/23/24 1524 DD/ 1506 TD/TT: 09/23/24 1521 Manager Workers Compensation: Laurence Parrish MD IMG XR PROCEDURES Final Re sult * (ABNORMAL) Lipid Panel, Standard (07/11/2024 3:30 PM EST) Triglycerides 184(H) <150 mg/dL [facility] Comment:Desirable Triglyceri de: less than 150 mg/dLBorderline High Triglyceride 150-199 mg/dLHigh Triglyceride: 200-499 mg/dLVery High Triglyceride: greater than or equal to 5OO mg/dL Cholesterol 123 <200 mg/dL [facility] Comment:Desirable Cholestero l: less than 200 mg/dLBorderline High Cholesterol: 200-239 mg/dLHigh Cholesterol: greater than 239 mg/dL LDL Cholesterol Calculated 46 <100 mg/dL [facility] Comment:Desirable LDL: less than 100 mg/dLNear Optimal/Above Optimal LDL: 110- 129 mg/dLBorderline High LDL: 130-159 mg/dLHigh LDL: 160-189 mg/dLVery High LDL: greater than or equal to 190 mg/dL HDL Cholesterol 41 >40 mg/dL [facility] Comment:Desirable HDL: great er than 40 mg/dL Note: This HDL assay may give artificially low results in patients with liver disease. 07/11/2024 3:30 PM EST 07/11/2024 3:55 PM EST [facility] REEL REPAIRER LAB BLOOD ORDERABLES Final Re sult [facility] [address] [place] [phone] * 3D DIGITAL TREMAYNE SCR MAMMO [...] HPV mRNA E6/E7 Not Detected NOT DETECTED [facility] Comment: This test was performed using the APTIMA(R) HPV Assay ([employer] This assay detects E6/E7 viral messenger RNA (mRNA) from 14 high-risk HPV types (16,18,31,33,35,39,45,51, 52,56,58,59,66,68). For additional information please refer to: http://education.Your Last Chance/faq/XZD370v5 (This link is being provided for informational/ educational purposes only.) The analytical performance characteristics of this assay have been determined by [place], [place]. The modifications have not been cleared or approved by the FDA. This assay has been validated pursuant to the CLIA regulations and is used for clinical purposes. Test Performed by [facility], [facility], [address] [place] [address] Messi Desai M.D., Ph.D., Director of Laboratories , CLIA [id number] Please note: ??Effective 04/28/2016, HPV testing will be performed using [employer]'s APTIMA test which targets mRNA. Detecting mRNA instead of DNA, as in older methods, offers significant improvements in specificity. 05/11/2018 10:1 5 AM EDT us Mehreen Sorto NP HISTORICAL/NON ORDERABLE LABS Fi nal Result [facility] [address] from Last 3 Months or Most Recently Relevant to Health Maintenance Insurance [facility] C3 DENTAL-[facility] MEDICAID STAND ADULT Care Teams Cardiac Exercise Specialist Relationship Specialty Start Date End Date Marilu Reynoso FNP [address] [place], [place] PCP - General Family Medicine 01/02/22 Raissa To PharmD [address] [place] [address] Pharmacist Internal Medicine 06/17/24
--- OUTSIDE RECORDS SUMMARY | 2024-11-30 17:58 | XMS_ITS | Encounter Summary ---
Author Organization [employer] Address [address] [address] 7t [place] [address] Care Team Providers Care C D Area Supervisor Name Role Phone Angeles, [facility] Primary Care Provider Raissa To PharmD Unavailable [phone] Reason for Visit * Reason Onset Date Comments Results 11/09/2024 Encounter Details Date Type Department Care Team (Late st Contact Info) Description 11/09/2024 Telephone [facility] 230 [place], [place] [phone] [place] 230 [place], [place] [phone] Results Social History Tobacco Use Types Packs/Day [...] Description 12/02/2024 2:00 PM EDT Medication Management [facility] [address] [place] [address] Raissa To, PharmD 230 [place] [address] 01/11/2025 9:15 AM EDT Office Visit [facility] [address] [place] [address] BoxfordMarilu, CANDIS 230 [place] [address] 02/15/2025 3:00 PM EDT Office Visit [facility] [address] [place] [address] Edil, Ellyn, OD 230 [place] [address] 05/26/2025 1:00 PM EDT Office Visit [facility] 230 [place] [address] Santo, Marlee 230 [place] [address] documented as of this encounter Visit Diagnoses Not on filedocumented in this encounter Additional Health Concerns Assessment Noted Time PHQ-9 Depression Total Score: 9 07/18/20 24 1:40 PM EST documented as of this encounter Care Teams C D Area Supervisor Relationship Specialty Start Date End Date Marilu Reynoso FNP 230 [place] [address] PCP - General Family Medicine 01/02/22 Raissa To, Rafia [address] [place] [address] Pharmacist Internal Medicine 06/17/24 documented as of this encounter
--- OUTSIDE RECORDS SUMMARY | 2024-11-30 17:58 | XMS_ITS | Encounter Summary ---
Author Organization [employer] Address [address] 7[address] [place] [address] Care Team Providers Care Soils Engineer Name Role Phone Marilu Reynoso THERMAL ENGINEER Primary Care Provider [phone] Raissa To PharmD Unavailable [phone] Reason for Visit * Reason Onset Date Comments case back from lab?? 03/23/2024 Encounter Details Date Type Department Care Team (Late st Contact Info) Description 03/23/2024 Telephone [facility] 230 [place], [place] [phone] Luiz Moody DDS 230 [place], [place] [phone] case back from lab?? Social History Tobacco [...] the past 12 months, has t he [employer], gas, oil or water [employer] threatened to shut off services in your [...] Description 12/02/2024 2:00 PM EDT Medication Management [facility] [address] [place] [address] Raissa To, PharmD [address] [place] [address] 01/11/2025 9:15 AM EDT Office Visit [facility] [address] [place] [address] Marilu Reynoso, CANDIS [address] [place] [address] 02/15/2025 3:00 PM EDT Office Visit [facility] [address] [place] [address] Edil, Ellyn, OD 230 [place] [address] 05/26/2025 1:00 PM EDT Office Visit [facility] [address] [place] [address] Santo, Marlee 230 [place] [address] documented as of this encounter Visit Diagnoses Not on filedocumented in this encounter Additional Health Concerns Assessment Noted Time PHQ-9 Depression Total Score: 24 024 11:18 AM EDT documented as of this encounter Care Teams Soils Engineer Relationship Specialty Start Date End Date Marilu Reynoso FNP 230 [place] [address] PCP - General Family Medicine 01/02/22 Raissa To, ConsueloD 230 [place] [address] Pharmacist Internal Medicine 06/17/24 Lisset Varner High Pressure Cleaner 04/08/24 07/08/24 documented as of this encounter
--- OUTSIDE RECORDS SUMMARY | 2024-11-30 17:58 | XMS_ITS | Encounter Summary ---
Author Organization [employer] Address [address] 7[address] [place] [address] Care Team Providers Care Electrician Telephone Name Role Phone Angeles, [facility] Primary Care Provider [phone] Raissa To PharmD Unavailable [phone] Reason for Visit * Reason Onset Date Comments Results 09/11/2023 Encounter Details Date Type Department Care Team (Late st Contact Info) Description 09/11/2023 Telephone [facility] 230 [place], [place] [phone] [facility] 230 [place], [place] [phone] Results Social History Tobacco Use Types Packs/Day [...] Description 12/02/2024 2:00 PM EDT Medication Management [facility] [address] [place] [address] Raissa To, PharmD 230 [place] [address] 01/11/2025 9:15 AM EDT Office Visit [facility] 230 [place] [address] Marilu Reynoso, CANDIS 230 [place] [address] 02/15/2025 3:00 PM EDT Office Visit [facility] OPTOMETRY [address] [place] [address] Ellyn Solo, OD 230 [place] [address] 05/26/2025 1:00 PM EDT Office Visit [facility] ADULT DENTAL 230 [place] [address] Marlee Blanchard 230 [place] [address] documented as of this encounter Visit Diagnoses Not on filedocumented in this encounter Additional Health Concerns Assessment Noted Time PHQ-9 Depression Total Score: 16 023 12:28 PM EST documented as of this encounter Care Teams Electrician Telephone Relationship Specialty Start Date End Date Marilu Reynoso FNP 230 [place] [address] PCP - General Family Medicine 01/02/22 Raissa To PharmD 230 [place] [address] Pharmacist Internal Medicine 06/17/24 Lisset Varner Vinyl Hanger 04/08/24 07/08/24 documented as of this encounter
--- OUTSIDE RECORDS SUMMARY | 2024-11-30 17:58 | XMS_ITS | Encounter Summary ---
Author Organization [employer] Address [address] [place] [address] Care Team Providers Care Research Environmental Engineer Name Role Phone Angeles, [facility] Primary Care Provider [phone] Raissa To PharmD Unavailable [phone] Encounter Details Date Type Department Care Team (Late st Contact Info) Description 06/10/2023 Abstract [facility] [address] [place], [place] [phone] CorbinMarilu samayoa, [facility] 230 [place], [place] [phone] Social History Tobacco Use Types Packs/Day Years [...] Description 12/02/2024 2:00 PM EDT Medication Management [facility] [address] [place] [address] Raissa To, PharmD [address] [place] [address] 01/11/2025 9:15 AM EDT Office Visit [facility] [address] [place] [address] Corbin, [place], ARTS MANAGER [address] [place] [address] 02/15/2025 3:00 PM EDT Office Visit [facility] OPTOMETRY [address] [place] [address] Edil, Ellyn, OD [address] [place] [address] 05/26/2025 1:00 PM EDT Office Visit [facility] AD[facility] D[facility] [address] [place] [address] Santo, Marlee [address] [place] [address] documented as of this encounter Visit Diagnoses Not on filedocumented in this encounter Additional Health Concerns Assessment Noted Time PHQ-9 Depression Total Score: 16 03/03/ 023 1:53 PM EDT documented as of this encounter Care Teams Research Environmental Engineer Relationship Specialty Start Date End Date Corbin CANDIS Michel [address] [place] [address] PCP - General Family Medicine 01/02/22 Raissa To PharmD [address] [place] [address] Pharmacist Internal Medicine 06/17/24 Lisset Varner Torch Cutter 04/08/24 07/08/24 documented as of this encounter
--- OUTSIDE RECORDS SUMMARY | 2024-11-30 17:58 | XMS_ITS | Encounter Summary ---
Author Organization [employer] Address [address] 7[address] [place] [address] Care Team Providers Care Scalping Machine Operator Name Role Phone Marilu Reynoso FINANCIAL ASSISTANT Primary Care Provider [phone] Raissa To PharmD Unavailable [phone] Encounter Details Date Type Department Care Team (Late st Contact Info) Description 11/25/2023 Orders Only [facility] 230 [place] [address] Provider, MD Yessenia Social History Tobacco Use [...] 2:00 PM EDT Medication Management [facility] 230 [place] [address] Raissa To PharmD [address] [place] [address] 01/11/2025 9:15 AM EDT Office Visit [facility] 230 [place] [address] Angeles, Marilu, FINANCIAL ASSISTANT [address] [place] [address] 02/15/2025 3:00 PM EDT Office Visit [facility] [address] [place] [address] Edil, Ellyn, OD 230 [place] [address] 05/26/2025 1:00 PM EDT Office Visit [facility] 230 [place] [address] Santo, Marlee 230 [place] [address] documented as of this encounter Procedures Procedure [...] documented as of this encounter Care Teams Scalping Machine Operator Relationship Specialty Start Date End Date Marilu Reynoso FNP [address] [place] [address] PCP - General Family Medicine 01/02/22 Raissa To, Rafia [address] [place] [address] Pharmacist Internal Medicine 06/17/24 Lisset Varner Petroleum Analyst 04/08/24 07/08/24 documented as of this encounter
--- OUTSIDE RECORDS SUMMARY | 2024-11-30 17:58 | XMS_ITS | Encounter Summary ---
Author Organization [employer] Address [address] [facility] 7t [place] [address] Care Team Providers Care Integration Solution Architect Name Role Phone Marilu Reynoso RADIOLOGIC TECHNOLOGY INSTRUCTOR Primary Care Provider [phone] Raissa To PharmD Unavailable [phone] Reason for Visit * Reason Comments Med Refill Encounter Details Date Type Department Care Team ([facility] Contact Info) Description 06/08/2023 Telephone [facility] 230 [place], [place] [phone] Name, MD Lexx [address] [place], [place] [phone] Med Refill Social History Tobacco Use Types [...] 06/22/2023 1:56 PM EST ----- Message from [facility] sent at 06/21/2023 6:48 AM EST ----- Would you mind setting up [facility] pulmonology appointment for patient? documented in this encounter Plan of Treatment Upcoming Encounters Date Type Department Care Team (Late st Contact Info) Description 12/02/2024 2:00 PM EDT Medication Management [facility] [address] [place] [address] Raissa To, PharmD [address] [place] [address] 01/11/2025 9:15 AM EDT Office Visit [facility] [address] [place] [address] [facility] [address] [place] [address] 02/15/2025 3:00 PM EDT Office Visit [facility] OPT[facility] [address] [place] [address] Edil, Ellyn, OD 230 [place] [address] 05/26/2025 1:00 PM EDT Office Visit [facility] [address] [place] [address] Santo, Marlee [address] [place] [address] documented as of this encounter Visit Diagnoses Diagnosis Essential hypertension Unspecified essential hypertension documented in this encounter Additional Health Concerns Assessment Noted Time PHQ-9 Depression Total Score: 16 023 1:53 PM EDT documented as of this encounter Care Teams Integration Solution Architect Relationship Specialty Start Date End Date [facility] [address] [place] [address] PCP - General Family Medicine 01/02/22 Raissa To, Rafia [address] [place] [address] Pharmacist Internal Medicine 06/17/24 Lisset Varner Methods Examiner 04/08/24 07/08/24 documented as of this encounter
== END 2024-11-30 15:23 | disposition home or self-care (01) ==
LOC: HO.MAMMO 15:22
PROVIDERS: PCP Registered Nurse; Visit Provider Registered Nurse
DX: Z12.31 Encounter for screening mammogram for malignant neoplasm of breast (principal)
CPT/HCPCS: 77063; 77067

== ENCOUNTER → 2024-11-30 15:30 | Outpatient (BNV) | payer MEDICAID, SELFPAY | PROVIDERS: PCP Registered Nurse; Visit Provider Internal Medicine | DX: Z12.31 Encounter for screening mammogram for malignant neoplasm of breast (principal) | CPT/HCPCS: 77063; 77067 ==

== ENCOUNTER 2024-12-12 14:10 | Emergency (ER) | payer MEDICAID, SELFPAY ==
[2024-12-12 14:20] VITALS: BP 142/53; BP 147/66; PULSE 77; PULSE 83; RESP 16; TEMP 36.1; O2SAT 100
--- NOTE | 2024-12-12 14:21 | ED.GENADULT ---
HPI - General Adult General Chief complaint: General Medical Stated complaint: TREMAYNE ARM PAIN,WEAK,HIGH SUGARS X2D,POC 253 PER EMS Time Seen by Provider: 12/12/24 18:12 Source: patient Limitations: language barrier History of Present Illness ED Provider: Dara Moeller PA-C HPI narrative: 54-year-old female with a history of hypertension, diabetes, hyperlipidemia, COPD, who presents with multiple complaints. Patient states she fell forward 3 days ago, she is having bilateral arm pain and pain over the abdomen. Patient states she thinks she may have a urinary tract infection as well. Denies nausea vomiting or fever. In addition, patient states her blood sugar has been elevated at home. Related Data Home Medications ?Medication ?Instructions ?Recorded ?Confirmed blood sugar diagnostic (FreeStyle #10 ea 07/24/20 03/27/22 Lite Strips) blood-glucose meter (FreeStyle #1 ea 07/24/20 03/27/22 Lite Meter kit) lancets 28 gauge (FreeStyle #100 ea 07/24/20 03/27/22 Lancets) gabapentin 100 mg capsule 2 cap PO BID 01/13/22 07/02/24 insulin glargine 100 unit/mL 22 unit subcut BEDTIME 01/13/22 07/02/24 subcutaneous solution (Lantus U-100 Insulin) levothyroxine 75 mcg tablet 1 tab PO DAILY@0600 03/27/22 07/02/24 montelukast 10 mg tablet 1 tab PO BEDTIME 03/27/22 07/02/24 omeprazole 20 mg capsule,delayed 1 cap PO DAILY@0630 03/27/22 07/02/24 release rosuvastatin 40 mg tablet 1 tab PO DAILY 03/27/22 07/02/24 sertraline 50 mg tablet 1 tab PO DAILY 03/27/22 07/02/24 olmesartan 20 mg tablet 20 mg PO DAILY 03/28/22 07/02/24 albuterol sulfate 90 mcg/actuation 2 puff inhalation Q6H PRN 07/02/24 07/02/24 aerosol inhaler (Ventolin HFA) Shortness Of Breath Or Wheezing aspirin 81 mg tablet,delayed 81 mg PO DAILY 07/02/24 07/02/24 release cyanocobalamin (vitamin B-12) 2,000 mcg PO DAILY 07/02/24 07/02/24 1,000 mcg tablet dulaglutide 4.5 mg/0.5 mL 4.5 mg subcut FR@0900 07/02/24 07/02/24 subcutaneous pen injector (Trulicity) insulin lispro 100 unit/mL 1 sliding scale dose subcut TIDAC 07/02/24 07/02/24 subcutaneous pen metformin 500 mg tablet 500 mg PO BIDWM 07/02/24 07/02/24 quetiapine 200 mg tablet 200 mg PO BEDTIME 07/02/24 07/02/24 Previous Rx's ?Medication ?Instructions ?Recorded nicotine 21 mg/24 hr daily 21 mg transdermal DAILY #30 ea 07/05/24 transdermal patch psyllium husk 3.4 gram/5.4 gram 1 tbsp PO DAILY #660 grams 07/05/24 oral powder (Metamucil) Allergies Allergy/AdvReac Type Severity Reaction Status Date / Time lisinopril [LISINOPRIL] Allergy Unknown UNKNOWN Verified 12/12/24 14:23 Penicillins Allergy Unknown RASH Verified 12/12/24 14:23 sulfamethoxazole Allergy Unknown RASH Verified 12/12/24 14:23 trimethoprim Allergy Unknown RASH Verified 12/12/24 14:23 Review of Systems Review of Systems: Yes all other systems are reviewed and are negative Constitutional: Constitutional: Denies fatigue and Denies fever(s) Cardiovascular: Cardiovascular: Denies chest pain and Denies dyspnea Respiratory: Respiratory: Denies cough and Denies dyspnea Gastrointestinal: Gastrointestinal: Reports abdominal pain, Denies nausea and Denies vomiting Genitourinary: Genitourinary: Reports dysuria Endocrine: Endocrine: Denies fatigue [facility] Past Medical History Attestation statement: The following information was validated with the patient. Medical History Smoking Other and unspecified hyperlipidemia Essential hypertension Type 2 diabetes mellitus with unspecified complications Palpitations Hypotension Anemia Migraine aura without headache Anxiety Depression Asthma Hyperlipidemia LDL goal <100 Vitamin D insufficiency Type 2 diabetes mellitus with hyperglycemia, with long-term current use of insulin Surgical History History of cholecystectomy Family History Family History Mother Diabetes Brother Diabetes Social History Social History Household Members: Family Housing: House Alcohol intake: current Alcohol intake frequency: holidays/special occasions only Alcohol type: beer and wine Patient Tobacco Use Status: Current everyday Tobacco user Tobacco use type: Cigarette Cigarette Packs Per Day: 0.3 Cigarettes Per Day: 6.0 e-Cigarette/Vaping Use: Never Used service: No Current occupational status: unemployed Physical Exam ED Vital Signs: Vital Signs - 24 hr 12/12/24 14:20 12/12/24 17:50 12/12/24 18:15 Temperature 96.9 F 97.3 F 98.2 F Pulse Rate 77 70 71 Respiratory Rate 16 16 16 Blood Pressure 142/53 H 128/64 136/67 Pulse Oximetry 100 100 96 Oxygen Delivery Method Room Air Room Air Room Air BMI result Body Mass Index 0.0 Const Other: Alert Orientation/consciousness: patient oriented x3 Resp Effort & Inspection: normal respiratory effort Cardio Other: Normal peripheral perfusion GI Other: Abdomen is soft, nontender nondistended no bruising no guarding Skin Other: Warm dry no rash Neuro General: patient oriented x3, gait normal, no focal motor deficits and CN's II-XI intact bilaterally Psych Other: Cooperative Course Course Course Narrative: RME, this is a rapid medical exam performed by Luis Haider please refer to primary provider for complete H&P- 54 year old female presents for evaluation of bilateral shoulder pain and lower abdominal pain. The patient reports that she fell 2 days ago onto her left side. She also complains of lower abdominal pain and that her sugars have been elevated about 300. EMS reported point of care of 253. Plan for labs including beta hydroxybutyrate and urinalysis. Medications Administered Discontinued Medications Generic Name Dose Route Start Last Admin Trade Name Freq PRN Reason Stop Dose Admin Acetaminophen 975 mg 12/12/24 18:39 12/12/24 18:52 Acetaminophen 325 Mg Tablet PO 12/12/24 18:40 975 mg ONCE ONE Administration Ibuprofen 600 mg 12/12/24 18:39 12/12/24 18:52 Ibuprofen 600 Mg Tablet PO 12/12/24 18:40 600 mg ONCE ONE Administration Medical Decision Making Medical Decision Making MDM Narrative: 54-year-old female with a history of hypertension, diabetes, hyperlipidemia, COPD, who presents with multiple complaints. Patient states she fell forward 3 days ago, she is having bilateral arm pain and pain over the abdomen. Patient states she thinks she may have a urinary tract infection as well. Denies nausea vomiting or fever. In addition, patient states her blood sugar has been elevated at home. Problem: Diabetes History: Per patient I have considered the following differential diagnoses: Fracture, dislocation, contusion, UTI, hyperglycemia, DKA Plan: The patient's musculoskeletal exam was completely benign, she has full range of motion of both upper extremities, there was no deformity. In regard to her abdomen, unremarkable exam there was no evidence of bruising, no Christianson Cordero sign I have no suspicion for intra-abdominal bleeding, her H&H are stable, the fall occurred 3 days ago. She is not truly hyperglycemic, her sugar is in the 200s, no evidence of DKA. Urine is pending. I have independently reviewed the following tests: Labs: No leukocytosis, not anemic, no electrolyte abnormality, blood sugar, urine not infected Lab Data 12/12/24 14:36 12/12/24 14:36 Labs: Lab Results 12/12/24 12/12/24 12/12/24 Range/Units 14:36 18:32 18:34 WBC 5.7 (4.8-10.8) X10*3/uL RBC 4.10 L (4.20-5.50) X10*6/uL Hgb 11.2 L (12.0-16.0) g/dl Hct 34.4 L (37.0-47.0) % MCV 83.9 (80.0-98.0) fL MCH 27.3 (27.0-33.0) pg MCHC 32.6 (31.0-35.0) g/dl RDW 13.7 (11.0-16.0) % Plt Count 172 (160-400) X10*3/uL MPV 11.6 (9.4-12.3) fL Immature Gran % (Auto) 0.4 (0.0-0.4) % Neut % (Auto) 62.7 (45-73) % Lymph % (Auto) 27.4 (20-40) % [place] % (Auto) 5.8 (2-11) % Eos % (Auto) 3.2 (0-4) % Baso % (Auto) 0.5 (0-2) % Lymph # (Auto) 1.6 (1.2-4.9) X10*3/uL [place] # (Auto) 0.3 (0.1-1.2) X10*3/uL Eos # (Auto) 0.2 (0.0-0.4) X10*3/uL Baso # (Auto) 0.0 (0.0-0.2) X10*3/uL Abs Immat Gran (auto) 0.02 (0.00-0.03) X10*3/uL Absolute Neuts (auto) 3.6 (2.0-8.3) x10*3/uL Absolute Nucleated RBC 0.000 (0.0-0.012) X10*3/uL Nucleated RBC % (auto) 0.0 (0.0-0.2) /100WBC Sodium 138 (135-145) mmol/L Potassium 4.7 (3.3-5.1) mmol/L Chloride 99 (96-108) mmol/L Carbon Dioxide 29 (22-29) mmol/L Anion Gap 15 (12-20) BUN 19 H (9-16) mg/dL Creatinine 1.03 (0.5-1.4) mg/dL Estim Creat Clear Calc TNP Estimated GFR 56 POC Glucose 196 H (60-115) mg/dL Random Glucose 243 H (60-115) mg/dL Calcium 9.6 D (8.4-10.2) mg/dL Total Bilirubin 0.5 (0.0-1.0) mg/dL AST 18 (5-31) U/L ALT 10 (0-31) U/L Alkaline Phosphatase 94 (39-117) U/L Total Protein 7.2 (6.5-8.0) g/dL Albumin 4.2 (3.5-5.0) g/dL Lipase 44 (8-78) U/L Beta-Hydroxybutyrate 0.15 (0.02-0.27) mmol/L Urine Color Yellow Urine Appearance Clear Urine pH 5.5 (5.0-9.0) Ur Specific [place] 1.010 (1.005-1.025) Urine Protein 30 (1+) H (Neg-Trace) mg/dL Urine Glucose (UA) Negative (Negative) mg/dL Urine Ketones Negative (Negative) mg/dL Urine Blood Negative (Negative) Urine Nitrite Negative (Negative) Ur Leukocyte Esterase Negative (Negative) Urine RBC 0-2 (0-2) /HPF Urine WBC 0-5 (0-5) /HPF Ur Squamous Epith Cells 3-5 (0-2) /HPF Urine Bacteria None Seen (None Seen) Hyaline Casts 0-2 (0-2) /LPF Discharge Plan Discharge Clinical Impression: Abdominal wall contusion Patient Disposition: Home, Self-Care Instructions: Contusion in Adults (ED) Additional Instructions: All of your labs were normal including your blood sugar, it was under 200. Your urine is not infected. In regard to your fall, you have sustained a contusion or a bruise. See home care instructions. You can use [id number] ibuprofen 600 mg taken every 6 hours with food, alternated with [id number] Tylenol 1000 mg taken every 8 hours. Follow up with primary care as needed. Prescriptions: No Action insulin glargine [Lantus U-100 Insulin] 100 unit/mL solution 22 unit subcut BEDTIME gabapentin 100 mg capsule 2 cap PO BID levothyroxine 75 mcg tablet 1 tab PO DAILY@0600 omeprazole 20 mg capsule,delayed release(DR/EC) 1 cap PO DAILY@0630 montelukast 10 mg tablet 1 tab PO BEDTIME sertraline 50 mg tablet 1 tab PO DAILY rosuvastatin 40 mg tablet 1 tab PO DAILY olmesartan 20 mg Tablet 20 mg PO DAILY metformin 500 mg tablet 500 mg PO BIDWM quetiapine 200 mg tablet 200 mg PO BEDTIME cyanocobalamin (vitamin B-12) 1,000 mcg tablet 2,000 mcg PO DAILY aspirin 81 mg tablet,delayed release (DR/EC) 81 mg PO DAILY albuterol sulfate [Ventolin HFA] 90 mcg/actuation HFA aerosol inhaler 2 puff INHALATION Q6H PRN (Reason: Shortness Of Breath Or Wheezing) Trulicity 4.5 mg/0.5 mL pen injector 4.5 mg subcut FR@0900 insulin lispro 100 unit/mL insulin pen 1 sliding scale dose subcut TIDAC Metamucil 3.4 gram/5.4 gram powder 1 tbsp PO DAILY Qty: 660 0RF Rx Instructions: mix into at least 8 oz of water or juice before administering nicotine 21 mg/24 hr Patch 24 Hour 21 mg transdermal DAILY Qty: 30 0RF (DME) lancets [FreeStyle Lancets] 28 gauge misc See Rx Instructions .ROUTE .MEDSUPPLY Qty: 100 Rx Instructions: As directed (DME) blood-glucose meter [FreeStyle Lite Meter] Kit See Rx Instructions .ROUTE .MEDSUPPLY Qty: 1 Rx Instructions: As directed (DME) FreeStyle Lite Strips Strip See Rx Instructions .ROUTE .MEDSUPPLY Qty: 10 Rx Instructions: As directed Print Language: Chadian
[2024-12-12 14:43] LABS: MANUAL DIFF FLAG NO
[2024-12-12 14:44] LABS: Basophils Percent Auto 0.5 % (0-2); Eosinophils Absolute Auto 0.2 X10*3/uL (0.0-0.4); Eosinophils Percent Auto 3.2 % (0-4); Hematocrit 34.4 % (37.0-47.0); Hemoglobin 11.2 g/dl (12.0-16.0); Imm Gran Abs Auto 0.02 X10*3/uL (0.00-0.03); Imm Gran Pct Auto 0.4 % (0.0-0.4); Lymphocytes Absolute Auto 1.6 X10*3/uL (1.2-4.9); Lymphocytes Percent Auto 27.4 % (20-40); Mean Corpuscular HGB Conc 32.6 g/dl (31.0-35.0); Mean Corpuscular Hemoglobin 27.3 pg (27.0-33.0); Mean Corpuscular Volume 83.9 fL (80.0-98.0); Mean Platelet Volume 11.6 fL (9.4-12.3); Monocytes Absolute Auto 0.3 X10*3/uL (0.1-1.2); Monocytes Percent Auto 5.8 % (2-11); Neutrophils Absolute Auto 3.6 x10*3/uL (2.0-8.3); Neutrophils Percent Auto 62.7 % (45-73); Platelet Count 172 X10*3/uL (160-400); Red Cell Distribution Width 13.7 % (11.0-16.0); White Blood Count 5.7 X10*3/uL (4.8-10.8)
[2024-12-12 15:08] LABS: Anion Gap 15 (12-20); Blood Urea Nitrogen 19 mg/dL (9-16); Carbon Dioxide 29 mmol/L (22-29); Chloride 99 mmol/L (96-108); Potassium 4.7 mmol/L (3.3-5.1); Sodium 138 mmol/L (135-145)
[2024-12-12 15:09] LABS: Alanine Aminotransferase 10 U/L (0-31); Albumin Level 4.2 g/dL (3.5-5.0); Alkaline Phosphatase 94 U/L (39-117); Aspartate Amino Transferase 18 U/L (5-31); Beta-Hydroxybutyrate 0.15 mmol/L (0.02-0.27); Bilirubin Total 0.5 mg/dL (0.0-1.0); Calcium 9.6 mg/dL (8.4-10.2); Estimated Glomerular Filt Rate 56; Glucose Random 243 mg/dL (60-115); Lipase 44 U/L (8-78); Total Protein 7.2 g/dL (6.5-8.0)
[2024-12-12 17:50] VITALS: BP 128/64; PULSE 70; RESP 16; TEMP 36.3; O2SAT 100
[2024-12-12 18:15] VITALS: BP 136/67; PULSE 71; RESP 16; TEMP 36.8; O2SAT 96
--- NOTE | 2024-12-12 18:35 | MHC.EDTECH ---
This pct just assumed care of Patient ,vitals taken ,urine sample collected and sent to lab ,,Patient said she did not eat all day and she is a diabetic ,and was slightly dizzy blood sugar check ,RN Bharti is aware of result of 196,Call khalil within Pt reach
[2024-12-12 18:42] LABS: Glucose, Whole Blood 196 mg/dL (60-115)
[2024-12-12 18:45] LABS: Appearance Urine Clear; Color Urine Yellow; Glucose Urine UA Negative (Negative); Leukocyte Esterase Urine Negative (Negative); Nitrite Urine Negative (Negative); PH 5.5 (5.0-9.0); UMIC TRIGGER UACC YES; Urine Blood Negative (Negative); Urine Ketones Negative (Negative); Urine Protein 30 (1+) mg/dL (Neg-Trace)
[2024-12-12 18:47] LABS: Bacteria Urine None Seen (None Seen); Hyaline Casts Urine 0-2 /LPF (0-2); RBC Urine 0-2 /HPF (0-2); WBC Urine 0-5 /HPF (0-5)
[2024-12-12] MEDS: Ibuprofen 600 MG TABLET PO (18:52)
[2024-12-12] MEDS: Acetaminophen 325 MG TABLET 975 MG PO (18:52)
--- OUTSIDE RECORDS SUMMARY | 2024-12-12 19:16 | XMS_ITS | Encounter Summary ---
Author Organization [employer] [facility] Address [address] [place] [address] 7t [place] [address] Care Team Providers Care Road Design Draftsperson Name Role Phone Marilu Reynoso EMERGENCY MANAGEMENT COORDINATOR Primary Care Provider [phone] Raissa To PharmD Unavailable [phone] Reason for Referral * Consultation (Routine) - Authorized Specialty Diagnoses / Procedures Referred By Shane hubbard Referred To Contact Pharmacy Diagnoses Type 2 diabetes mellitus with hyperglycemia, with long-term current use of insulin (CMS/HCC) Genesis Peacock MD [address] [place] [address] Phone: tel: fax: Referral ID Status Reason Start Date Expiration Date Visits Requested Visits Authorized [id number] Authorized Consult and Treat 06/19/2024 06/19/2025 6 6 Encounter Details Date Type Department Care Team (Late st Contact Info) Description 06/19/2024 Orders Only [facility] MEDICINE [address] [place] [address] Genesis Peacock MD [address] [place] [address] Type 2 diabetes mellitus with hyperglycemia, with [...] Care Team (Late st Contact Info) Description 02/08/2025 2:30 PM EDT Office Visit [facility] MEDICINE [address] [place] [address] [place], [place], [facility] [address] [place] [address] 02/15/2025 3:00 PM EDT Office Visit [facility] OPTOMETRY [address] [place] [address] Edil, Ellyn, OD [address] [place] [address] 05/26/2025 1:00 PM EDT Office Visit [facility] ADULT DENTAL [address] [place] [address] Santo, Marlee [address] [place] [address] Scheduled Referrals Name Type Priority Associated Diagnoses Orde r Schedule Referral to Pharmacy CDTM Outpatient Referral Routine Type 2 diabetes mellitus with hyperglycemia, with long-term current use of insulin ([facility]) Ordered: 06/19/2024 documented as of this encounter Visit Diagnoses Diagnosis Type 2 diabetes mellitus with hyperglycemia, with long-term current use of insulin (CMS/[facility])- Primary documented in this encounter Additional Health Concerns Assessment Noted Time PHQ-9 Depression Total Score: 24 024 11:18 AM EDT documented as of this encounter Care Teams Road Design Draftsperson Relationship Specialty Start Date End Date [facility] [address] [place] [address] PCP - General Family Medicine 01/02/22 Raissa To PharmD [address] [place] [address] Pharmacist Internal Medicine 06/17/24 Lisset Varner Windows Desktop Support 04/08/24 07/08/24 documented as of this encounter
--- OUTSIDE RECORDS SUMMARY | 2024-12-12 19:16 | XMS_ITS | Encounter Summary ---
Author Organization [employer] Address [address] [facility] 7t [place] [address] Care Team Providers Care Warp Hand Name Role Phone [place] [facility] Primary Care Provider [phone] Raissa To PharmD Unavailable [phone] Reason for Visit * Reason Comments Med Refill Encounter Details Date Type Department Care Team (Late st Contact Info) Description 01/20/2024 Refill [facility] MEDICINE [address] [place], [place] [phone] [facility] [address] [place], [place] [phone] Thoracic back pain, unspecified back pain laterality, [...] Description 02/08/2025 2:30 PM EDT Office Visit [facility] MEDICINE [address] [place] [address] [place], [place], [facility] [address] [place] [address] 02/15/2025 3:00 PM EDT Office Visit [facility] OPTOMETRY [address] [place] [address] Edil, Ellyn, OD [address] [place] [address] 05/26/2025 1:00 PM EDT Office Visit [facility] ADULT DENTAL [address] [place] [address] Santo, Marlee [address] [place] [address] documented as of this encounter Visit Diagnoses Diagnosis Thoracic back pain, unspecified back pain laterality, unspecified chronicity documented in this encounter Additional Health Concerns Assessment Noted Time PHQ-9 Depression Total Score: 16 023 12:28 PM EST documented as of this encounter Care Teams Warp Hand Relationship Specialty Start Date End Date Stock[place]Marilu, CARPENTER REFRIGERATOR [address] [place] [address] PCP - General Family Medicine 01/02/22 Raissa To PharmD [address] [place] [address] Pharmacist Internal Medicine 06/17/24 Lisset Varner Emergency Management Director 04/08/24 07/08/24 documented as of this encounter
--- OUTSIDE RECORDS SUMMARY | 2024-12-12 19:16 | XMS_ITS | Encounter Summary ---
Author Organization [employer] Address [address] [facility] [address] 7t [place] [address] Care Team Providers Care Gem Cutter Name Role Phone [place], [facility] Primary Care Provider [phone] Raissa To PharmD Unavailable [phone] Encounter Details Date Type Department Care Team (Late st Contact Info) Description 06/10/2023 Abstract [facility] MEDICINE [address] [place], [place] [phone] AcworthMarilu samayoa, [facility] [address] [place], [place] [phone] Social History Tobacco Use Types Packs/Day Years [...] Description 02/08/2025 2:30 PM EDT Office Visit [facility] [address] [place] [address] Marilu Reynoso FNP [address] [place] [address] 02/15/2025 3:00 PM EDT Office Visit [facility] OPTOMETRY [address] [place] [address] Edil, Ellyn, OD [address] [place] [address] 05/26/2025 1:00 PM EDT Office Visit [facility] ADULT DENTAL [address] [place] [address] Santo, Marlee [address] [place] [address] documented as of this encounter Visit Diagnoses Not on filedocumented in this encounter Additional Health Concerns Assessment Noted Time PHQ-9 Depression Total Score: 16 023 1:53 PM EDT documented as of this encounter Care Teams Gem Cutter Relationship Specialty Start Date End Date Marilu Reynoso FNP [address] [place] [address] PCP - General Family Medicine 01/02/22 Raissa To, ConsueloD [address] [place] [id number] Pharmacist Internal Medicine 06/17/24 Lisset Varner Crm Consultant 04/08/24 07/08/24 documented as of this encounter
--- OUTSIDE RECORDS SUMMARY | 2024-12-12 19:16 | XMS_ITS | Encounter Summary ---
Author Organization [employer] Address [address] [facility] 7t [place] [address] Care Team Providers Care Apprentice Funeral Director Name Role Phone Marilu Reynoso ASSEMBLER PRODUCTION LINE Primary Care Provider [phone] Raissa To PharmD Unavailable [phone] Reason for Visit * Reason Comments Med Refill Encounter Details Date Type Department Care Team ([facility] Contact Info) Description 06/08/2023 Telephone [facility] MEDICINE [address] [place], [place] [phone] Name, MD Lexx [address] [place], [place] [phone] Med Refill Social History Tobacco Use Types [...] EST ----- Would you mind setting up [facility] pulmonology appointment for patient? documented in this encounter Plan of Treatment Upcoming Encounters Date Type Department Care Team (Late st Contact Info) Description 02/08/2025 2:30 PM EDT Office Visit [facility] MEDICINE [address] [place] [address] Marilu Reynoso FNP [address] [place] [address] 02/15/2025 3:00 PM EDT Office Visit [facility] OPTOMETRY [address] [place] [address] Edil, Ellyn, OD [address] [place] [address] 05/26/2025 1:00 PM EDT Office Visit [facility] ADULT DENTAL [address] [place] [address] Santo, Marlee [address] [place] [address] documented as of this encounter Visit Diagnoses Diagnosis Essential hypertension Unspecified essential hypertension documented in this encounter Additional Health Concerns Assessment Noted Time PHQ-9 Depression Total Score: 16 023 1:53 PM EDT documented as of this encounter Care Teams Apprentice Funeral Director Relationship Specialty Start Date End Date Marilu Reynoso FNP [address] [place] [address] PCP - General Family Medicine 01/02/22 Raissa To, Rafia [address] [place] [address] Pharmacist Internal Medicine 06/17/24 Lisset Varner Outside Salesperson 04/08/24 07/08/24 documented as of this encounter
--- OUTSIDE RECORDS SUMMARY | 2024-12-12 19:16 | XMS_ITS | Encounter Summary ---
Author Organization [employer] [facility] Address [address] [facility] 7t [place] [address] Care Team Providers Care Hold Worker Name Role Phone Marilu Reynoso CERTIFIED ORTHOTIST/PEDORTHIST Primary Care Provider [phone] Raissa To PharmD Unavailable Reason for Visit * Reason Onset Date Comments Appointment 10/21/2022 Encounter Details Date Type Department Care Team (Late st Contact Info) Description 10/21/2022 Telephone [facility] ADULT DENTAL [address] [place], [place] [phone] Luiz Moody DDS [address] [place], [place] [phone] Appointment Social History Tobacco Use Types Packs/Day [...] Description 02/08/2025 2:30 PM EDT Office Visit [facility] MEDICINE [address] [place] [address] [place] [facility] [address] [place] [address] 02/15/2025 3:00 PM EDT Office Visit [facility] OPTOMETRY [address] [place] [address] Edil, Ellyn, OD [address] [place] [address] 05/26/2025 1:00 PM EDT Office Visit [facility] ADULT DENTAL [address] [place] [address] Santo, Marlee [address] [place] [address] documented as of this encounter Visit Diagnoses Not on filedocumented in this encounter Care Teams Hold Worker Relationship Specialty Start Date End Date [place] [facility] [address] [place] [address] PCP - General Family Medicine 01/02/22 Raissa To, ConsueloD [address] [place] [address] Pharmacist Internal Medicine 06/17/24 Lisset Varner Display Specialist 04/08/24 07/08/24 documented as of this encounter
--- OUTSIDE RECORDS SUMMARY | 2024-12-12 19:16 | XMS_ITS | Encounter Summary ---
Author Organization [email or web address] Address [address] [facility] [address] 7t [place] [address] Care Team Providers Care Wireless Development Manager Name Role Phone Marilu Reynoso HYDROELECTRIC PLANT STRUCTURAL ENGINEER Primary Care Provider [phone] Raissa To PharmD Unavailable [phone] Encounter Details Date Type Department Care Team (Late st Contact Info) Description 11/25/2023 Orders Only [facility] MEDICINE [address] [place] [address] Provider, MD Yessenia Social History Tobacco Use [...] Description 02/08/2025 2:30 PM EDT Office Visit [facility] MEDICINE [address] [place] [address] Gwinn, Marilu, HYDROELECTRIC PLANT STRUCTURAL ENGINEER [address] [place] [address] 02/15/2025 3:00 PM EDT Office Visit [facility] OPTOMETRY [address] [place] [address] Edil, Ellyn, OD [address] [place] [address] 05/26/2025 1:00 PM EDT Office Visit [facility] ADULT DENTAL [address] [place] [address] Santo, Marlee [address] [place] [address] documented as of this encounter Procedures Procedure [...] documented as of this encounter Care Teams Wireless Development Manager Relationship Specialty Start Date End Date Marilu Reynoso FNP [address] [place] [address] PCP - General Family Medicine 01/02/22 Raissa To PharmD [address] [place] [address] Pharmacist Internal Medicine 06/17/24 Lisset Varner Sewer And Inspector 04/08/24 07/08/24 documented as of this encounter
--- OUTSIDE RECORDS SUMMARY | 2024-12-12 19:16 | XMS_ITS | Encounter Summary ---
Author Organization [employer] Address [address] [place] [address] Care Team Providers Care Blue Leather Sorter Name Role Phone Angeles, [facility] Primary Care Provider [phone] Rasisa To PharmD Unavailable [phone] Reason for Visit * Reason Onset Date Comments Results 09/11/2023 Encounter Details Date Type Department Care Team (Late st Contact Info) Description 09/11/2023 Telephone [facility] MEDICINE [address] [place], [place] [phone] [facility] [address] [place], [place] [phone] Results Social History Tobacco Use Types Packs/Day [...] Description 02/08/2025 2:30 PM EDT Office Visit [facility] MEDICINE [address] [place] [address] [place], [place], [employer] CONTROLLER [address] [place] [address] 02/15/2025 3:00 PM EDT Office Visit [facility] OPTOMETRY [address] [place] [address] Edil, Ellyn, OD [address] [place] [address] 05/26/2025 1:00 PM EDT Office Visit [facility] ADULT DENTAL [address] [place] [address] Marlee Blanchard [address] [place] [address] documented as of this encounter Visit Diagnoses Not on filedocumented in this encounter Additional Health Concerns Assessment Noted Time PHQ-9 Depression Total Score: 16 023 12:28 PM EST documented as of this encounter Care Teams Blue Leather Sorter Relationship Specialty Start Date End Date Marilu ReynosoCANDIS [address] [place] [address] PCP - General Family Medicine 01/02/22 Raissa To, ConsueloD [address] [place] [address] Pharmacist Internal Medicine 06/17/24 Lisset Varner Glass Calibrator 04/08/24 07/08/24 documented as of this encounter
--- OUTSIDE RECORDS SUMMARY | 2024-12-12 19:16 | XMS_ITS | Encounter Summary ---
Author Organization [employer] Address [address] [place] [address] Care Team Providers Care Blocking Machine Operator Second Name Role Phone Marilu Reynoso [employer] DRIVER Primary Care Provider [phone] Raissa To PharmD Unavailable [phone] Reason for Visit * Reason Onset Date Comments case back from lab?? 03/23/2024 Encounter Details Date Type Department Care Team (Late st Contact Info) Description 03/23/2024 Telephone [facility] DENT[facility] [address] [place], [place] [phone] Luiz Moody DDS [address] [place], [place] [phone] case back from lab?? Social History Tobacco [...] the past 12 months, has t he [employer], gas, oil or water [employer] threatened to shut off services in your [...] Description 02/08/2025 2:30 PM EDT Office Visit [facility] [address] [place] [address] Hale, Marilu, [employer] DRIVER [address] [place] [address] 02/15/2025 3:00 PM EDT Office Visit [facility] OPTOMETRY [address] [place] [address] Edil, Ellyn, OD [address] [place] [address] 05/26/2025 1:00 PM EDT Office Visit [facility] [address] [place] [address] Marlee Blanchard [address] [place] [address] documented as of this encounter Visit Diagnoses Not on filedocumented in this encounter Additional Health Concerns Assessment Noted Time PHQ-9 Depression Total Score: 24 024 11:18 AM EDT documented as of this encounter Care Teams Blocking Machine Operator Second Relationship Specialty Start Date End Date HaleMarilu FNP [address] [place] [address] PCP - General Family Medicine 01/02/22 Raissa To, Rafia [address] [place] [address] Pharmacist Internal Medicine 06/17/24 Lisset Varner Broadcast Producer 04/08/24 07/08/24 documented as of this encounter
--- OUTSIDE RECORDS SUMMARY | 2024-12-12 19:16 | XMS_ITS | Encounter Summary ---
Author Organization [employer] Address [address] [place] [address] Care Team Providers Care Track Repair Supervisor Name Role Phone Marilu Reynoso [employer] Primary Care Provider [phone] Raissa To PharmD Unavailable [phone] Encounter Details Date Type Department Care Team (Late st Contact Info) Description 11/10/2024 Orders Only [facility] MEDICINE [address] [place], [place] [phone] Leighann Tran NP [address] [place], [place] [phone] Bacterial vaginosis (Primary Dx) Social History Tobacco [...] Description 02/08/2025 2:30 PM EDT Office Visit [facility] MEDICINE [address] [place] [address] [facility], [facility] [address] [place] [address] 02/15/2025 3:00 PM EDT Office Visit [facility] OPTOMETRY [address] [place] [address] Edil, Ellyn, OD [address] [place] [address] 05/26/2025 1:00 PM EDT Office Visit [facility] ADULT DENTAL [address] [place] [address] Santo, Marlee [address] [place] [address] documented as of this encounter Visit Diagnoses Diagnosis Bacterial vaginosis- Primary Unspecified vaginitis and vulvovaginitis documented in this encounter Additional Health Concerns Assessment Noted Time PHQ-9 Depression Total Score: 9 07/18/20 24 1:40 PM EST documented as of this encounter Care Teams Track Repair Supervisor Relationship Specialty Start Date End Date Marilu Reynoso CANDIS [address] [place] [address] PCP - General Family Medicine 01/02/22 Raissa To, Rafia [address] [place] [address] Pharmacist Internal Medicine 06/17/24 documented as of this encounter
--- OUTSIDE RECORDS SUMMARY | 2024-12-12 19:16 | XMS_ITS | Encounter Summary ---
Author Organization [employer] Address [address] 7t [place] [address] Care Team Providers Care Web Designer Developer Name Role Phone Angeles, [facility] Primary Care Provider [phone] Raissa To PharmD Unavailable [phone] Reason for Visit * Reason Onset Date Comments Results 11/09/2024 Encounter Details Date Type Department Care Team (Late st Contact Info) Description 11/09/2024 Telephone [facility] MEDICINE [address] [place], [place] [phone] [place] [facility] [address] [place], [place] [phone] Results Social History Tobacco Use Types Packs/Day [...] Description 02/08/2025 2:30 PM EDT Office Visit [facility] MEDICINE [address] [place] [address] [place], [place], [facility] [address] [place] [address] 02/15/2025 3:00 PM EDT Office Visit [facility] OPTOMETRY [address] [place] [address] Edil, Ellyn, OD [address] [place] [address] 05/26/2025 1:00 PM EDT Office Visit [facility] ADULT DENTAL [address] [place] [address] Marlee Blanchard [address] [place] [address] documented as of this encounter Visit Diagnoses Not on filedocumented in this encounter Additional Health Concerns Assessment Noted Time PHQ-9 Depression Total Score: 9 07/18/20 24 1:40 PM EST documented as of this encounter Care Teams Web Designer Developer Relationship Specialty Start Date End Date Marilu Reynoso FNP [address] [place] [address] PCP - General Family Medicine 01/02/22 Raissa To PharmD [address] [place] [address] Pharmacist Internal Medicine 06/17/24 documented as of this encounter
--- OUTSIDE RECORDS SUMMARY | 2024-12-12 19:16 | XMS_ITS | Encounter Summary ---
Author Organization [employer] Address [address] [place] [address] Care Team Providers Care Apparatus Operator Name Role Phone Angeles, Marilu [facility] Primary Care Provider [phone] Raissa To PharmD Unavailable [phone] Reason for Visit * Reason Onset Date Comments Appointment Request 06/29/2024 Encounter Details Date Type Department Care Team (Late st Contact Info) Description 06/29/2024 Telephone [facility] MEDICINE [address] [place], [place] [phone] [place] Marilu [facility] [address] [place], [place] [phone] Appointment Request Social History Tobacco Use Types [...] Description 02/08/2025 2:30 PM EDT Office Visit [facility] MEDICINE [address] [place] [address] [place], Marilu, CARAMEL CANDY MAKER [address] [place] [address] 02/15/2025 3:00 PM EDT Office Visit [facility] OPTOMETRY [address] [place] [address] Edil, Ellyn, OD [address] [place] [address] 05/26/2025 1:00 PM EDT Office Visit [facility] ADULT DENTAL [address] [place] [address] Marlee Blanchard [address] [place] [address] documented as of this encounter Visit Diagnoses Not on filedocumented in this encounter Additional Health Concerns Assessment Noted Time PHQ-9 Depression Total Score: 24 024 11:18 AM EDT documented as of this encounter Care Teams Apparatus Operator Relationship Specialty Start Date End Date Marilu Reynoso FNP [address] [place] [address] PCP - General Family Medicine 01/02/22 Raissa To PharmD [address] [place] [address] Pharmacist Internal Medicine 06/17/24 Lisset Varner Sawing And Assembly Supervisor 04/08/24 07/08/24 documented as of this encounter
--- OUTSIDE RECORDS SUMMARY | 2024-12-12 19:17 | XMS_ITS | Encounter Summary ---
Author Organization [employer] Address [address] [place] [address] Care Team Providers Care Underwriting Specialist Name Role Phone Angeles Marilu [facility] Primary Care Provider [phone] Raissa To PharmD Unavailable [phone] Reason for Visit * Reason Onset Date Comments PT1 11/29/2024 Encounter Details Date Type Department Care Team (Late st Contact Info) Description 11/29/2024 Telephone [facility] MEDICINE [address] [place], [place] [phone] [place] [facility] [address] [place], [place] [phone] PT1 Social History Tobacco Use Types Packs/Day [...] Miscellaneous Notes * Telephone Encounter - Marii Silver - 12/08/2024 1:58 PM EDT FYI to PCP - patient discharged from [facility] - Diabetes effective today. Patient has had >2 consecutive canceled/no showed pharmacy visits and thus will be removed from the outreach list per existing workflow. A letter will be mailed to the patient. If, upon further discussion, you feel patient would benefit from pharmacy services please issue a new referral to re-enroll. Thank you. * Telephone Encounter - Loulou Ashley - 11/29/2024 2:26 PM EDT 1 of 3 Patient calling requesting PT1 Home Address verified: Y/N: Yes Provider name or facility name: [facility] : [facility] [address] [place] [address] Escort needed: Y/N: Yes Do you have a wheelchair: Y/N: No If yes- Manual or electric: N/A Visits: (2x monthly) 2 of 3 Patient calling requesting PT1 Home Address verified: Y/N: Yes Provider name or facility name: [facility] [address], [address], [place] [address] Escort needed: Y/N: Yes Do you have a wheelchair: Y/N: No If yes- Manual or electric: N/A Visits: (2x weekly) 3 of 3 Patient calling requesting PT1 Home Address verified: Y/N: Yes Provider name or facility name: [facility], [place] [address]. Escort needed: Y/N: Yes Do you have a wheelchair: Y/N: No If yes- Manual or electric: N/A Visits: (2x monthly) documented in this encounter Plan of Treatment Upcoming Encounters Date Type Department Care Team (Late st Contact Info) Description 02/08/2025 2:30 PM EDT Office Visit [facility] MEDICINE [address] [place] [address] Marilu Reynoso FNP [address] [place] [address] 02/15/2025 3:00 PM EDT Office Visit [facility] OPTOMETRY [address] [place] [address] Edil, Ellyn, OD [address] [place] [address] 05/26/2025 1:00 PM EDT Office Visit [facility] ADULT DENTAL 230 [place] [address] Santo, Marlee [address] [place] [address] documented as of this encounter Visit Diagnoses Not on filedocumented in this encounter Additional Health Concerns Assessment Noted Time PHQ-9 Depression Total Score: 7 11/22/19 25 3:30 PM EDT documented as of this encounter Care Teams Underwriting Specialist Relationship Specialty Start Date End Date Marilu Reynoso FNP [address] [place] [address] PCP - General Family Medicine 01/02/22 Raissa To, ConsueloD [address] [place] [address] [place] [address] Pharmacist Internal Medicine 06/17/24 documented as of this encounter
--- OUTSIDE RECORDS SUMMARY | 2024-12-12 19:17 | XMS_ITS | Clinical Summary ---
Author Organization [employer] Address [address] [facility] [address] [place] [address] Care Team Providers Care Lead Relay Tester Name Role Phone Marilu Reynoso SCIENTIFIC INFORMATICS ANALYST Primary Care Provider [phone] Raissa To PharmD Unavailable Allergies Active Allergy [...] with long-term current use of insulin ([facility]) USE TO CLEAN SKIN BEFORE INJECTION DIRECTED 100 each 11 Active glucose blood (FREESTYLE LITE) test stripIndication s:Type 2 diabetes mellitus with hyperglycemia, with long-term current use of insulin ([facility]) USE DIRECTED TO TEST BLOOD SUGAR FOUR TIMES DAILY 100 strip 11 Active insulin pen needle (Mimosa SafePack Pen Needle) 32G x 4 mm miscIndications :Type 2 diabetes mellitus with hyperglycemia, with long-term current use of insulin ([facility]) USE DIRECTED WITH INSULIN 100 each Active TRUEplus Lancets 33G miscIndications :Type 2 diabetes mellitus with hyperglycemia, with long-term current use of insulin ([facility]) USE DIRECTED TO TEST BLOOD SUGAR FOUR TIMES DAILY 100 each 024 Active levothyroxine (Synthroid, Levoxyl) 75 MCG tablet TAKE 1 TABLET BY MOUTH EVERY MORNING 90 tablet 3 024 Active olmesartan (BENIcar) 20 MG tablet TAKE 1 TABLET BY MOUTH EVERY MORNING 90 tablet 3 024 Active Continuous Glucose Information Assurance Specialist (FreeStyle Stevo 2 [place]) deviceIndicatio ns:Type 2 diabetes mellitus with hyperglycemia, with long-term current use of insulin ([facility]) For monitoring interstitial glucose every 8 hours and as needed 1 each Active Continuous Glucose Sensor (FreeStyle Stevo 2 Sensor) miscIndications :Type 2 diabetes mellitus with hyperglycemia, with long-term current use of insulin ([facility]) Test blood sugar every 8 hours and as needed 2 each 3 Active glucose blood (FreeStyle Precision Dylan Test) test stripIndication s:Type 2 diabetes mellitus with hyperglycemia, with long-term current use of insulin ([facility]) Test blood sugar every 8 hours [...] a, with long-term current use of insulin ([facility]) Take 1 tablet (10 mg) by mouth Once per day. 30 tablet 024 2024 Active predniSONE (Deltasone) 20 MG tabletIndicatio ns:Adhesive capsulitis of left shoulder 2 tabs po daily for 5 days 10 tablet Active Alcohol Swabs (Alcohol Prep) padsIndications :Type 2 diabetes mellitus with diabetic microalbuminuri a, with long-term current use of insulin ([facility]) Use one pad each to prep skin [...] a, with long-term current use of insulin ([facility]) Use as directed to check blood sugar four times daily 1 each 025 Active glucose blood test stripIndication s:Type 2 diabetes mellitus with diabetic microalbuminuri a, with long-term current use of insulin ([facility]) Use as directed to check blood sugar four times daily 100 each 12 025 Active insulin pen needle 32G x 4 mm miscIndications :Type 2 diabetes mellitus with diabetic microalbuminuri a, with long-term current use of insulin ([facility]) Use as instructed to inject insulin 4 times daily 120 each 025 2025 Active Continuous Glucose Information Assurance Specialist (FreeStyle Stevo 3 [place]) deviceIndicatio ns:Type 2 diabetes mellitus with diabetic microalbuminuri a, with long-term current use of insulin ([facility]) 1 each Once per day. Use as directed for CGM 1 each 025 Active Continuous Glucose Sensor (FreeStyle Stevo 3 Plus Sensor) miscIndications :Type 2 diabetes mellitus with diabetic microalbuminuri a, with long-term current use of insulin ([facility]) 1 each every 15 days. Apply 1 every 15 days as directed for CGM 2 each Active glucose blood (FreeStyle Precision Dylan Test) test stripIndication s:Type 2 diabetes mellitus with diabetic microalbuminuri a, with long-term current use of insulin ([facility]) Use to test blood sugar 4 times daily in case of CGM failure or extremes of BG 100 each 025 2025 Active famotidine (Pepcid) 20 MG tabletIndicatio ns:Dyspepsia Take 1 tablet (20 mg) by mouth 2 times daily. 60 tablet 025 2025 Active QUEtiapine (SEROquel) 200 MG tabletIndicatio ns:Mood disorder ([facility]/HCC) TAKE 1 TABLET BY MOUTH AT BEDTIME [...] with long-term current use of insulin ([facility]) Inject subcutaneously 26 units once daily 3 mL 1 025 Active insulin lispro (HumaLOG KWIKPEN) 100 UNIT/ML injectionIndica tions:Type 2 diabetes mellitus with hyperglycemia, with long-term current use of insulin ([facility]) inject by subcutaneous route per the [...] 2:27 PM EST): -gave number to call [facility] Healthcare maintenance 03/03/2023 Overview (02/19/2024): Pap: 2-18, HPV neg NIL-->overdue for repeat. Will schedule appointment today Mammogram: Pt missed multiple appointments--she needs to call to reschedule BMD: Routine age 65 LDLCT: Accepts referral to [facility] CRC: Has not complete previous GI referrals [...] Exam: 07/2023 Risk 1 Eye Exam: 06/2023 [facility] Lipid panel: 02/2023 Microalbumin:creatinine ratio: 42.5 [...] CGM sensor resent ?? Will refer to [facility] DM educator ?? Will hold off [...] ?? 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 ?bipolar disorder - Hx of suicidal ideation and psych hospitalization - Referred to [facility], per chart note, contact attempt was made. Patient needs to call back Assessment & Plan (06/21/2023 6:33 AM EST): - Resubmit referral to (STAT) - Contact HC if sx worsen or experiencing thoughts of SI or self harm. Pt has [facility] crisis contact information Hyperlipidemia 05/23/2015 Hypothyroidism [...] through. Provided patient and her daughter with [facility] pulmonology phone number to call and schedule initial appointment. - ED precautions reviewed Assessment & Plan (03/06/2023 1:10 PM EDT): ?? Persistent diffuse wheezing ?? Will re-submit referral to pulmonology Resolved Problems Problem Noted Date Diagnosed Date Resolved Date Microalbuminuria due to type 2 diabetes mellitus ([facility]) 04/25/2023 02/19/2024 Periodontal disease 10/23/2022 03/03/20 Dental caries 10/23/2022 03/03/2023 History of severe acute resp iratory syndrome coronavirus 2 (SARS-CoV-2) disease 09/24/202002/18 Thoracic back pain 01/18/2018 3 Allergic rhinitis 06/02/2016 03/06/2023 Encounters * This document contains information received from the source organization and may not represent a complete record from that organization. Date Type Department Care Team Description 12/12/2024 Orders Only GENERIC EXTERNAL DATA DEPARTMENT Provider, Generic External Data 12/12/2024 Telephone [facility] MEDICINE [address] [place] [phone] Marilu Reynoso FNP Nurse Triage 11/30/2024 Patient Outreach [facility] [address] [place] [address] Marilu Reynoso FNP Care Coordination (CHW outreach for SDOH PT-1 and food needs-referral completed /) 11/29/[address] [address] [place] FNP PT1 11/24/[address] [address] [place]Marilu SCIENTIFIC INFORMATICS ANALYST Results 11/24/[address] [address] [place]Mar[place]u FNP VNA 11/23/2024 Orders Only [facility] [address] [place] [address] Marilu Reynoso SCIENTIFIC INFORMATICS ANALYST Bacterial vaginosis (Primary Dx) 11/22/[address] [address] AngelesMarilu samayoa FNP Prior Authorization ( [place] Request: Ozempic) 11/22/[address] [address] [place]u FNP Prior Authorization ( [place] Request: Ozempic) 11/21/2024 1:45 PM EDT Office Visit [address] [address] Marilu Reynoso FNP Vaginal itching (Primary Dx); Type 2 diabetes mellitus with hyperglycemia, with long-term current use of insulin ([facility]); Mood disorder ([facility]) 11/21/2024 Travel 11/14/2024 Telephone [facility] [address] [place] [address] Yeimy Tovar, RN Results 11/11/2024 Telephone [facility] [address] [place] [address] Yeimy Tovar, RN Results 11/11/2024 Telephone [facility] [address] [place] [phone] Leighann Tran NP Results 11/10/2024 Telephone [facility] [address] [place] [address] Yeimy Tovar GERMANIA Results 11/10/2024 Orders Only [facility] [address] [place] [address] Leighann Tran NP Bacterial vaginosis (Primary Dx) 11/09/2024 Telephone [facility] [address] [place] [address] Marilu Reynoso FNP Results 11/03/2024 2:40 PM EDT Office Visit [facility] [address] [place] [address] Leighann Tran NP Acute cystitis without hematuria (Primary Dx); Vagina itching 11/02/2024 Telephone [facility] [address] [place] [address] Marilu Reynoso FNP Results 11/02/2024 Orders Only [facility] [address] [place] [address] Marilu Reynoso FNP 10/28/[address] [address] Marilu Reynoso FNP Lab Orders 10/28/2024 Population Health Risk Score [facility] () Department [address] [place] [phone] Provider, Population Health Generic 10/26/2024 Orders Only [facility] [address] [place] [address] Marilu Reynoso FNP 10/26/[address] [address] Marilu Reynoso FNP Mood disorder (CMS/HCC); Thoracic back pain, unspecified back pain laterality, unspecified chronicity 10/26/2024 Telephone [facility] [address] [place] [address] Desirae Taylor, GERMANIA CGM PA 10/24/2024 1:00 PM EDT Office Visit [facility] [address] [place] [address] Marilu Reynoso FNP Type 2 diabetes mellitus with diabetic microalbuminuria, with long-term current use of insulin (CMS/HCC) (Primary Dx); Cystitis; Chronic diarrhea; Dyspepsia; Severe persistent asthma, unspecified whether complicated; Essential hypertension; Dietary counseling; Exercise counseling 10/24/2024 Orders Only [facility] [address] [place] [address] [place]u [facility] 10/24/2024 Travel 10/21/2024 Telephone [facility] OPTOMETRY [address] [place] [address] Ellyn Solo, OD 10/18/2024 Telephone [facility] MEDICINE [address] [place] [address] [place] [facility] 10/17/2024 Patient Outreach [facility] [address] [place], [place] [phone] [place]u [facility] Pre-visit Planning (SDOH unable to reach [facility] ) 09/23/2024 3:00 PM EST Office Visit [facility] [address] [place] [address] Laurence Parrish MD Adhesive capsulitis of left shoulder (Primary Dx); Mood disorder ([facility]) 09/23/2024 Refill [facility] [address] [place] [address] Name, MD Lexx Mood disorder ([facility]); Thoracic back pain, unspecified back pain [...] Description 02/08/2025 2:30 PM EDT Office Visit [facility] MEDICINE [address] [place] [address] [place], Marilu, SCIENTIFIC INFORMATICS ANALYST [address] [place] [address] 02/15/2025 3:00 PM EDT Office Visit [facility] OPTOMETRY [address] [place] [address] Edil, Ellyn, OD [address] [place] [address] 05/26/2025 1:00 PM EDT Office Visit [facility] ADULT DENTAL [address] [place] [address] Prosper Blanchardaris [address] [place] [address] Health Maintenance Due Date Last Done Comments CT Colonography 1970 Dental Prophylaxis 1970 Dental X-Ray: Bitewings 1970 Dental X-Ray: Full Mouth 1970 FIT DNA/Cologuard 1970 FIT 1970 FOBT 1970 HIV Screening 1970 Sigmoidoscopy 1970 Alcohol/Substance Use Screening 1982 Hepatitis C Screening 1988 Pap Smear 1991 Colonoscopy 06/28/2022 06/28/2019 Colorectal Cancer Screening 06/28/2022 [...] 11/21/2025 11/21/2024, 11/22/19 Tobacco Screening 11/23/2025 11/23/2024 Mammogram 11/30/2025 11/30/2024, 07/19, 08/13/2018, Additional history exists DTaP/Tdap/Td Vaccines (4 - Td or Tdap) [...] Procedure Name Priority Date/Time Associated Diagnosis Comments GLUCOSE, WHOLE BLOOD Routine 12/12/2024 6:34 PM EDT URINALYSIS, COMPLETE, WITH REFLEX TO CULTURE Routine 12/12/2024 6:32 PM EDT BI MAMMOGRAM SCREENING TOMOSYNTHESIS BILATERAL Routine 11/30/2024 3:25 PM EDT Breast cancer screening by mammogram POCT GLUCOSE Routine 11/21/2024 2:21 PM EDT Type 2 diabetes mellitus with hyperglycemia, with long-term current use of insulin ([facility]) BACTERIAL VAGINOSIS PANEL Routine 11/21/2024 2:21 PM [...] microalbuminuria, with long-term current use of insulin ([facility]) POCT GLYCATED HEMOGLOBIN, TOTAL Routine 10/24/2024 1:47 PM EDT Type 2 diabetes mellitus with diabetic microalbuminuria, with long-term current use of insulin ([facility]) XR SHOULDER 2+ VIEWS LEFT Routine 09/23/2024 3:06 PM EST Adhesive capsulitis of left shoulder LIPID PANEL, STANDARD Routine 07/11/2024 3:30 PM EST PERIODIC ORAL EVALUATION - ESTABLISHED PATIENT Routine 03/21/2024 2:30 PM EDT HM COLONOSCOPY Routine 06/28/2019 8:54 AM EST ZZZ HISTORICAL HPV MRNA E6/E7 Routine 05/11/2018 10:15 AM EDT from Last 3 Months or Most Recently Relevant to Health Maintenance Results * (ABNORMAL) Glucose, Whole Blood (12/12/2024 6:34 PM EDT) Glucose, Whole Blood 196(H) 60 - 115 mg/dL [facility] Comment:METER #: [id number] 12/12/2024 6:34 PM EDT 12/12/2024 6:42 PM EDT us Generic External Data Provider LAB BLOOD ORDERAB LES Final Result [facility] [address] [place] [address] [phone] * (ABNORMAL) Urinalysis, Complete, with Reflex to Culture (12/12/2024 6:32 PM EDT) Color Urine Yellow [facility] Appearance Urine Clear [facility] PH 5.5 5.0 - 9.0 [facility] Glucose Urine UA Negative Negative mg/dL [facility] Urine Blood Negative Negative [facility] Specific [place] - Urine 1.010 1.005 - 1.025 [facility] Urine Protein 30 (1+)(A) Neg-Trace mg/dL [facility] Urine Ketones Negative Negative mg/dL [facility] Nitrite Urine Negative Negative [facility] Leukocyte Esterase Urine Negative Negative [facility] RBC Urine 0-2 0 - 2 /HPF [facility] Urine WBC 0-5 0 - 5 /HPF [facility] Urine Squamous Epithelial Cell 3-5 0 - 2 /HPF [facility] Urine Bacteria None Seen None Seen [facility] Hyaline Casts, Urine 0-2 0 - 2 /LPF [facility] 12/12/2024 6:32 PM EDT 12/12/2024 6:41 PM EDT Narrative [facility] - 12/12/2024 6:52 PM EDT [id number], Clean Catch us Generic External Data Provider LAB URINE ORDERAB LES Final Result [facility] [address] [place] [address] [phone] * BI Mammogram Screening Tomosynthesis Bilateral (11/30/2024 3:25 PM EDT) Anatomical Region Laterality Modality Breast Bilateral Mammography 11/30/2024 3:25 PM EDT Narrative 12/10/2024 2:51 PM EDT ? [facility] ? [address] ?[place] [address] ?[phone] ? Mammography Report ? Signed ? Patient: Aviles,Shannon ?MR#: [id number] ?? [id number] ? : 1970 ?Acct:[id number] ? Age/Sex: 54 / F ?ADM Date: 11/30/24 ? Loc: HO.MAMMO ? Attending Dr: Marilu Angeles SCIENTIFIC INFORMATICS ANALYST ? Ordering Physician: Angeles,Marilu SCIENTIFIC INFORMATICS ANALYST ?Results: 1Nega ?? tive ? Date of Service: 11/30/24 ?Follow Up: 1 Year From Orig ?? inal Mammogram ? Procedure(s): MM tomosynthesis screening BI ?? Accession Number(s): [id number] ? cc: Marilu Reynoso SCIENTIFIC INFORMATICS ANALYST ? EXAMINATION: ?? MM SCREENING DIGITAL BREAST TOMOSYNTHESIS, BILATERAL ? CLINICAL INFORMATION: ? Screening. Asymptomatic. ? COMPARISON: ?? Mammography: Comparison is made with available priors ? TECHNIQUE: ?? Digital breast mammography with tomosynthesis is performed in both the ?? craniocaudal and mediolateral oblique views along with computer-aided ?? detection (CAD). ? FINDINGS: ?? There are scattered areas of fibroglandular density (ACR BI-RADS breast ?? composition Category b). ? There are no significant masses, abnormal calcifications, or other ?? abnormalities. ? MM/MM tomosynthesis screening BI ?? IMPRESSION: ?? No mammographic evidence of malignancy. ? ASSESSMENT: ? BI-RADS BI-RADS 1 - Negative ? RECOMMENDATION: ?? Routine annual mammography screening. ? 1 year F/U ? This examination should not preclude the clinical evaluation of a ?? suspicious palpable abnormality. ? This patient's information was entered into a reminder system with a ?? target due date for their next mammogram. ? Electronically signed by: ??Adeline Del Castillo DO ??12/10/2024 02:48 PM EDT ? Dictated By: ?Adeline Del Castillo DO ? Signed By: ?<Electronically signed by Adeline Tyminski, DO in OV> ? 12/10/24 1448 ? DD/ 1525 ? TD/TT: 11/30/24 1539 ? Riding Double: ? Procedure Note Jr [place] - 12/10/2024 [facility] [address] [place] [address] [place] [address] Mammography Report Signed Patient: Pamela Aviles#: [id number] : 1970Acct:[id number] Age/Sex: 54 / FADM Date: 11/30/24 Loc: [facility] Attending Dr: Marilu Reynoso SCIENTIFIC INFORMATICS ANALYST Ordering Physician: Marilu Reynoso FNPResults: 1Nega tive Date of Service: 11/30/24Follow Up: 1 Year From Orig inal Mammogram Procedure(s): MM tomosynthesis screening BI Accession Number(s): [id number] cc: [facility] SCIENTIFIC INFORMATICS ANALYST EXAMINATION: MM SCREENING DIGITAL BREAST TOMOSYNTHESIS, BILATERAL CLINICAL INFORMATION: Screening. Asymptomatic. COMPARISON: Mammography: Comparison is made with available priors TECHNIQUE: Digital breast mammography with tomosynthesis is performed in both the craniocaudal and mediolateral oblique views along with computer-aided detection (CAD). FINDINGS: There are scattered areas of fibroglandular density (ACR BI-RADS breast composition Category b). There are no significant masses, abnormal calcifications, or other abnormalities. MM/MM tomosynthesis screening BI IMPRESSION: No mammographic evidence of malignancy. ASSESSMENT: BI-RADS BI-RADS 1 - Negative RECOMMENDATION: Routine annual mammography screening. 1 year F/U This examination should not preclude the clinical evaluation of a suspicious palpable abnormality. This patient's information was entered into a reminder system with a target due date for their next mammogram. Electronically signed by: Adeline Del Castillo DO 12/10/2024 02:48 PM EDT Dictated By: Adeline Del Castillo DO Signed By: <Electronically signed by Adeline Del Castillo DO in OV> 12/10/24 1448 DD/ 1525 TD/TT: 11/30/24 1539 Riding Double: [facility] SCIENTIFIC INFORMATICS ANALYST IMG BI PROCEDURES Edited Resu lt - Final * (ABNORMAL) Bacterial Vaginosis Panel (11/21/2024 2:21 PM EDT) TRICHOMONAS VAGINALIS DETECTION BY PCR NOT DETECTED Not Detect [facility] BACTERIAL VAGINOSIS DETECTION BY PCR POSITIVE(A) Negative [facility] Comment:The BV organism targ ets [...] DETECTION BY PCR NOT DETECTED Not Detect [facility] Astrid glab krusei PCR NOT DETECTED Not Detect [facility] Swab Vaginal structure / Unknown 11/21/2024 2:21 PM EDT 11/21/2024 6:00 PM EDT [employer] LAB MICROBIOLOGY - GENERAL OR DERABLES Final Result [facility] [address] [place] [address] [phone] * (ABNORMAL) POCT Glucose (11/21/2024 2:21 PM EDT) Only the most recent of2 resultswithin the time period is included. Glucose Blood, POC 238(A) 60 - 200 mg/dL Blood Capillary blood specimen / Unknown 11/21/2024 2:21 PM EDT [employer] [facility] [employer] POINT OF CARE TEST ENTER/EDIT ORDERABLES Final [...] Urine 11/03/2024 3:13 PM EDT Leighann Tran NP POINT OF CARE TEST ENTER/EDIT O RDERABLES Final Result * (ABNORMAL) SureSwab?? Advanced Vaginitis Plus, TMA (11/03/2024 12:00 AM EDT) CTNG Ref Lab NOT DETECTED NOT DETECTED [facility] NG Ref Lab NOT DETECTED NOT DETECTED [facility] Comment:For additional infor arpan, please refer tohttps://education.Buzzilla/faq/QNI510(This link is being provided for information/educational purposes only.)THIS TEST WAS PERFORMED AT:[facility] [place] [phone] DIAZ MD SureSwab 9R) ADV Bacterial Vaginosis (BV), TMA POSITIVE(A ) NEGATIVE [facility] Astrid Species DETECTED(A ) NOT DETECTED [facility] Astrid glabrata DETECTED(A ) NOT DETECTED [facility] Comment:C. glabrata, which i s responsible for the majority ofnon-albicans CV in the [place] may have decreasedsusceptibility to standard antimycotic therapeuticintervention compared to C. albicans.Astrid species C. albicans, C. tropicalis,C. parapsilosis, and/or C. dubliniensis can be detected,but not differentiated, in the Astrid spp. result. Trichomonas vaginalis (TV), TMA NOT DETECTED NOT DETECTED [facility] 11/03/2024 11/03/2024 Leighann Hernandez TRANSMISSION SYSTEM OPERATOR LAB BODY FLUIDS AND STOOLS ARTURO HOWARD Final Result [facility] [address] [place] [phone] * Culture, Urine, Routine (11/03/2024 12:00 AM EDT) Only the most recent of2 resultswithin the time period is included. Urine Urine specimen obtained by clean catch procedure / Unknown 11/03/2024 11/04/2024 12:25 PM EDT Comment:UACC Narrative [facility] - 11/05/2024 12:29 PM EDT Urine Culture No growth. Specimen Source: Urine clean catch [facility] Mary TRANSMISSION SYSTEM OPERATOR LAB MICROBIOLOGY - GENERAL ORDArjun RABRAQUEL Final Result [facility] [address] [place] [address] [phone] * Cancelled Serology (10/26/2024 2:30 PM EDT) Cancelled Serology SEE NOTE [facility] Comment:THE FOLLOWING TESTS WERE CANCELLED: FECAL GLOBINREASON: NO SUITABLE SPECIMEN RECEIVED; REQUIRES INSURE FOBTCARD 10/26/2024 2:30 PM EDT 10/26/2024 6:34 PM EDT [employer] HISTORICAL/NON ORDERABLE LABS Final Result Performing Organization Address [facility] Co de Phone Number [facility] [address] [place] [address] [phone] * Calprotectin, Stool (10/26/2024 2:30 PM EDT) Calprotectin,Fecal 22 mcg/g [facility] Comment:Reference Range: <50 Normal 50-120 Borderline >120 ElevatedCalprotectin in Crohn's disease and ulcerative colitis canbe five to several thousand times above the referencepopulation (50 mcg/g or less). Levels are usually 50 mcg/gor less in healthy patients and with irritable bowelsyndrome. Repeat testing in 4-6 weeks is suggested forborderline values.THIS TEST WAS PERFORMED AT:[employer]/POCASSET [id number] [facility] [place] [address]CFFOECESILIA PEREA MD,PHD,SHOSHANA Stool 10/26/2024 2:30 PM EDT 10/26/2024 6:34 PM EDT [employer] [employer] [facility] LAB BODY FLUIDS AND STOOLS OR DERABLES Final Result Performing Organization Address [facility] Co de Phone Number [facility] [address] [place] [address] [phone] * Helicobacter pylori??Antigen, EIA, Stool (10/26/2024 2:30 PM EDT) H pylori Ag Stool SEE NOTE [facility] Comment:HELICOBACTER PYLORI AG, EIA, STOOL Micro Number: [id number] Test Status: Final Specimen Source: Stool Specimen Quality: Adequate H.pylori Ag: Not Detected Antimicrobials, proton pump inhibitors, and bismuth preparations inhibit H. pylori and ingestion up to two weeks prior to testing may cause false negative results. If clinically indicated the test should be repeated on a new specimen obtained two weeks after discontinuing treatment. Reference Range: Not DetectedTHIS TEST WAS PERFORMED AT:[employer] [place] [phone] DIAZ MD Stool Rectal contents / Unknown 10/26/2024 2:30 PM EDT 10/26/2024 6:34 PM EDT [employer] LAB BODY FLUIDS AND STOOLS OR DERABLES Final Result [facility] [address] [place] [phone] * T-SPOT??.TB (10/24/2024 2:28 PM EDT) T Spot TB Negative Negative [facility] Comment:A negative test resu lt [...] as aquantitative test. TS PANEL A 0 [facility] TS PANEL B 0 [facility] Negative Control Passed [facility] Positive Control Passed [facility] Comment:For additional infor arpan, please refer tohttp://education.Buzzilla/faq/EQD055(This link is being provided for informational/educational purposes only.)THIS TEST WAS PERFORMED AT:[employer] [id number] [place] [address]YBXHGNLMESSI DESAI MD,PHD 10/24/2024 2:28 PM EDT 10/24/2024 4:07 PM EDT [employer] LAB BLOOD ORDERABLES Final Re sult Performing Organization Address [facility]/ZIP Co de Phone Number [facility] [address] [place] [phone] * (ABNORMAL) Vitamin B12 (10/24/2024 2:28 PM EDT) Vitamin B12 1,923(H) 200 - 900 pg/mL [facility] Comment:NORMAL 200-900 PG/ML INDETERMINATE 160-199 PG/ML DEFICIENT < 160 PG/ML 10/24/2024 2:28 PM EDT 10/24/2024 4:07 PM EDT [facility] LAB BLOOD ORDERABLES Final Re sult Performing Organization Address City/[facility]/ZIP Co de Phone Number [facility] [address] [place] [address] [phone] * (ABNORMAL) POCT HGB A1C (10/24/2024 1:47 PM EDT) Hemoglobin A1C 9.9(A) 4.0 - 6.0 % Blood 10/24/2024 1:47 PM EDT [facility] SCIENTIFIC INFORMATICS ANALYST POINT OF CARE TEST ENTER/EDIT ORDERABLES Final Result * XR Shoulder 2+ Views Left (09/23/2024 3:06 PM EST) Anatomical Region Laterality Modality Upper Extremities, Shoulder Left Radi ographic Imaging 09/23/2024 3:06 PM EST Narrative 09/23/2024 3:26 PM EST ?[facility] ?[address] ?[place] [address] ?XRay Report ? Signed ? Patient: Aviles,Shannon ?MR#: [id number] ?? [id number] ? : 1970 ?Acct:[id number] ? Age/Sex: 54 / F ?ADM Date: 09/23/24 ? Loc: HO.HHCX ? Attending Dr: Laurence Parrish MD ? Ordering Physician: Laurence Parrish MD ?? Date of Service: 09/23/24 ?? Procedure(s): XR shoulder LT min 2V ?? Accession Number(s): [id number] ? cc: Laurence Parrish MD ? EXAMINATION: [...] DD/ 1506 ? TD/TT: 09/23/24 1521 ? Riding Double: ? Procedure Note Jr Salinas - 09/23/2024 [facility] [address] [place] [address] XRay Report Signed Patient: AvilesJw sena#: [id number] : 1970Acct:[id number] Age/Sex: 54 / FADM Date: 09/23/24 Loc: HO.HHCX Attending Dr: Laurence Parrish MD Ordering Physician: Laurence Parrish MD Date of Service: 09/23/24 Procedure(s): XR shoulder LT min 2V Accession Number(s): [id number] cc: Laurence Parrish MD EXAMINATION: XR SHOULDER [...] 09/23/24 1524 DD/ 1506 TD/TT: 09/23/24 1521 Riding Double: Laurence Parrish MD IMG XR PROCEDURES Final Re sult * (ABNORMAL) Lipid Panel, Standard (07/11/2024 3:30 PM EST) Triglycerides 184(H) <150 mg/dL [facility] Comment:Desirable Triglyceri de: less than 150 mg/dLBorderline High Triglyceride 150-199 mg/dLHigh Triglyceride: 200-499 mg/dLVery High Triglyceride: greater than or equal to 5OO mg/dL Cholesterol 123 <200 mg/dL [facility] Comment:Desirable Cholestero l: less than 200 mg/dLBorderline High Cholesterol: 200-239 mg/dLHigh Cholesterol: greater than 239 mg/dL LDL Cholesterol Calculated 46 <100 mg/dL [facility] Comment:Desirable LDL: less than 100 mg/dLNear Optimal/Above Optimal LDL: 110- 129 mg/dLBorderline High LDL: 130-159 mg/dLHigh LDL: 160-189 mg/dLVery High LDL: greater than or equal to 190 mg/dL HDL Cholesterol 41 >40 mg/dL [facility] Comment:Desirable HDL: great er than 40 mg/dL Note: This HDL assay may give artificially low results in patients with liver disease. 07/11/2024 3:30 PM EST 07/11/2024 3:55 PM EST [employer] [employer] [facility] [employer] [facility] BLOOD ORDERABLES Final Re sult [facility] [address] [place] [address] [phone] * Colonoscopy (06/28/2019 8:54 AM EST) Historical Provider MD HEALTH MAINTENANCE Final Result * HPV mRNA E6/E7 (05/11/2018 10:15 AM EDT) HPV mRNA E6/E7 Not Detected NOT DETECTED [facility] Comment: This test was performed using the APTIMA(R) HPV Assay ([employer] This assay detects E6/E7 viral messenger RNA (mRNA) from 14 high-risk HPV types (16,18,31,33,35,39,45,51, 52,56,58,59,66,68). For additional information please refer to: http://education.Beacon Endoscopic.Crystal Clear Vision/faq/OEM119y6 (This link is being provided for informational/ educational purposes only.) The analytical performance characteristics of this assay have been determined by [employer] [place], [place]. The modifications have not been cleared or approved by the FDA. This assay has been validated pursuant to the CLIA regulations and is used for clinical purposes. Test Performed by Stephanie Rojas, [employer] [place], [address] [place] [address] Messi Desai M.D., Ph.D., Director of Laboratories , CLIA [id number] Please note: ??Effective 04/28/2016, HPV testing will be performed using [employer]'s APTIMA test which targets mRNA. Detecting mRNA instead of DNA, as in older methods, offers significant improvements in specificity. 05/11/2018 10:1 5 AM EDT us Mehreen Sorto NP HISTORICAL/NON ORDERABLE LABS Fi nal Result [facility] [address] from Last 3 Months or Most Recently Relevant to Health Maintenance Insurance [facility] C3 DENTAL-[facility] MEDICAID STAND ADULT Care Teams Lead Relay Tester Relationship Specialty Start Date End Date Marilu Reynoso FNP [address] [place] [address] PCP - General Family Medicine 01/02/22 Raissa To, ConsueloD [address] [place] [address] Pharmacist Internal Medicine 06/17/24
--- OUTSIDE RECORDS SUMMARY | 2024-12-12 19:17 | XMS_ITS | Encounter Summary ---
Author Organization [employer] Address [address] 7t [place] [address] Care Team Providers Care Retail Area Manager Name Role Phone Marilu Reynoso DRAIN CLEANER PLUMBER Primary Care Provider [phone] Raissa To PharmD Unavailable [phone] Encounter Details Date Type Department Care Team (Late st Contact Info) Description 07/14/2023 Abstract [facility] MEDICINE [address] [place], [place] [phone] Shruthi Esparza Social History Tobacco Use Types [...] Description 02/08/2025 2:30 PM EDT Office Visit [facility] MEDICINE [address] [place] [address] Marilu Reynoso FNP [address] [place] [address] 02/15/2025 3:00 PM EDT Office Visit [facility] OPTOMETRY [address] [place] [address] Edil, Ellyn, OD [address] [place] [address] 05/26/2025 1:00 PM EDT Office Visit [facility] ADULT DENTAL [address] [place] [address] Santo, Marlee [address] [place] [address] documented as of this encounter Visit Diagnoses Not on filedocumented in this encounter Additional Health Concerns Assessment Noted Time PHQ-9 Depression Total Score: 16 023 1:53 PM EDT documented as of this encounter Care Teams Retail Area Manager Relationship Specialty Start Date End Date Marilu Reynoso FNP [address] [place] [address] PCP - General Family Medicine 01/02/22 Raissa To PharmD [address] [place] [address] Pharmacist Internal Medicine 06/17/24 Lisset Varner Store Operations Associate 04/08/24 07/08/24 documented as of this encounter
--- OUTSIDE RECORDS SUMMARY | 2024-12-12 19:17 | XMS_ITS | Encounter Summary ---
Author Organization [employer] Address [address] 7[address] [place] [address] Care Team Providers Care Electronic News Gathering Editor Name Role Phone Marilu Reynoso TECHNICAL SPEC Primary Care Provider [phone] Raissa To PharmD Unavailable [phone] Encounter Details Date Type Department Care Team (Late st Contact Info) Description 12/12/2024 Orders Only GENERIC EXTERNAL DATA DEPARTMENT Provider, Generic External Data Social History Tobacco Use Types Packs/Day Years [...] Description 02/08/2025 2:30 PM EDT Office Visit [facility] MEDICINE [address] [place] [address] [place], Marilu, TECHNICAL SPEC [address] [place] [address] 02/15/2025 3:00 PM EDT Office Visit [facility] OPTOMETRY [address] [place] [address] Edil, Ellyn, OD [address] [place] [address] 05/26/2025 1:00 PM EDT Office Visit [facility] ADULT DENTAL [address] [place] [address] Santo, Marlee [address] [place] [address] documented as of this encounter Procedures Procedure Name Priority Date/Time Associated Diagnosis Comments GLUCOSE, WHOLE BLOOD Routine 12/12/2024 6:34 PM EDT URINALYSIS, COMPLETE, WITH REFLEX TO CULTURE Routine 12/12/2024 6:32 PM EDT documented in this encounter Results * (ABNORMAL) Glucose, Whole Blood (12/12/2024 6:34 PM EDT) Glucose, Whole Blood 196(H) 60 - 115 mg/dL [facility] Comment:METER #: [id number] 12/12/2024 6:34 PM EDT 12/12/2024 6:42 PM EDT us Generic External Data Provider LAB BLOOD ORDERAB LES Final Result Performing Organization Address City/[facility] Co de Phone Number [facility] [address] [place] [address] [phone] * (ABNORMAL) Urinalysis, Complete, with Reflex to Culture (12/12/2024 6:32 PM EDT) Color Urine Yellow [facility] Appearance Urine Clear [facility] PH 5.5 5.0 - 9.0 [facility] Glucose Urine UA Negative Negative mg/dL [facility] Urine Blood Negative Negative [facility] Specific [place] - Urine 1.010 1.005 - 1.025 [facility] Urine Protein 30 (1+)(A) Neg-Trace mg/dL [facility] Urine Ketones Negative Negative mg/dL [facility] Nitrite Urine Negative Negative [facility] Leukocyte Esterase Urine Negative Negative [facility] RBC Urine 0-2 0 - 2 /HPF [facility] Urine WBC 0-5 0 - 5 /HPF [facility] Urine Squamous Epithelial Cell 3-5 0 - 2 /HPF [facility] Urine Bacteria None Seen None Seen [facility] Hyaline Casts, Urine 0-2 0 - 2 /LPF [facility] 12/12/2024 6:32 PM EDT 12/12/2024 6:41 PM EDT Narrative [facility] - 12/12/2024 6:52 PM EDT [id number], [employer] us Generic External Data Provider LAB URINE ORDERAB LES Final Result [facility] [address] [place] [address] [phone] documented in this encounter Visit Diagnoses Not on filedocumented in this encounter Additional Health Concerns Assessment Noted Time PHQ-9 Depression Total Score: 7 11/22/19 25 3:30 PM EDT documented as of this encounter Care Teams Electronic News Gathering Editor Relationship Specialty Start Date End Date Marilu Reynoso FNP [address] [place] [address] PCP - General Family Medicine 01/02/22 Raissa To, Rafia [address] [place] [address] Pharmacist Internal Medicine 06/17/24 documented as of this encounter
--- OUTSIDE RECORDS SUMMARY | 2024-12-12 19:17 | XMS_ITS | Encounter Summary ---
Author Organization [employer] Address [address] [place] [address] Care Team Providers Care Java Programmer Analyst Name Role Phone [place] [facility] Primary Care Provider [phone] Raissa To PharmD Unavailable [phone] Reason for Visit * Reason Onset Date Comments VNA 11/24/2024 Encounter Details Date Type Department Care Team (Late st Contact Info) Description 11/24/2024 Telephone [facility] [address] [place], [place] [phone] [facility] [address] [place], [place] [phone] VNA Social History Tobacco Use Types Packs/Day [...] Telephone Encounter - Urszula Harper RN - 12/07/2024 1:14 PM EDT RN was informed patient did not call [facility] as instructed (see below). [facility] did attempt to reach out topatient again however patient again did not answer phone or return call. [facility] can no longer continuetrying. Patient will not be started with VNA services. Sending to PCP as FYI. * Telephone Encounter - Urszula Harper RN - 12/02/2024 11:59 AM EDT RN was informed S has not been able to make contact with the patient to start care. RN was informed S has attempted to call patient x2, daughter x2 and went to patients home however door was not answered. RN called patient [phone] to inform A has been trying to get ahold of patient to schedule initial visit to start services however they have not been able to get ahold of the patient. Patient reports she has been having difficulty with her cell phone and will be having it checked today. RN advised patient to return call to [facility] at [phone]. Patient verbalized understanding and reports she will call them now. Patient to f/u PRN. * Telephone Encounter - Urszula Harper RN - 11/28/2024 11:41 AM EDT S SOC visit will be tomorrow. * Telephone Encounter - Urszula Harper RN - 11/24/2024 9:19 AM EDT Noted. RN has generated order for VNA services for medication management and VS monitoring. PCP hassigned and RN has provided referral with order, OV note, medication list and facesheet to [facility] with [facility]. RN will update with SOC date. ----- Message from [facility] sent at 11/23/2024 4:32 PM EDT ----- Hi team! Could we do a VNA referral for insulin administration for Shannon??? documented in this encounter Plan of Treatment Upcoming Encounters Date Type Department Care Team (Late st Contact Info) Description 02/08/2025 2:30 PM EDT Office Visit [facility] MEDICINE [address] [place] [address] RogersMarilu [facility] [address] [place] [address] 02/15/2025 3:00 PM EDT Office Visit [facility] OPTOMETRY [address] [place] [address] Edil, Ellyn, OD [address] [place] [address] 05/26/2025 1:00 PM EDT Office Visit [facility] ADULT DENTAL [address] [place] [address] Prosper Blanchardaris [address] [place] [address] documented as of this encounter Visit Diagnoses Not on filedocumented in this encounter Additional Health Concerns Assessment Noted Time PHQ-9 Depression Total Score: 7 11/22/19 25 3:30 PM EDT documented as of this encounter Care Teams Java Programmer Analyst Relationship Specialty Start Date End Date Marilu Reynoso FNP [address] [place] [address] PCP - General Family Medicine 01/02/22 Raissa To, Rafia [address] [place] [address] Pharmacist Internal Medicine 06/17/24 documented as of this encounter
--- OUTSIDE RECORDS SUMMARY | 2024-12-12 19:17 | XMS_ITS | Encounter Summary ---
Author Organization [employer] Address [address] 7t [place] [address] Care Team Providers Care Saw Edge Fuser Circular Name Role Phone Marilu Reynoso [facility] Primary Care Provider [phone] Raissa To PharmD Unavailable [phone] Reason for Visit * Reason Onset Date Comments Nurse Triage 12/12/2024 Encounter Details Date Type Department Care Team (Late st Contact Info) Description 12/12/2024 Telephone [facility] MEDICINE [address] [place], [place] [phone] [facility] [address] [place], [place] [phone] Nurse Triage Social History Tobacco Use Types Packs/Day Years [...] encounter Miscellaneous Notes * Telephone Encounter - Ludmila Peguero RN - 12/12/2024 11:56 AM EDT Triage call with [facility] [id number] Rodney Pt reports several falls, four in all. The last fall was 12/09/24 while at a friends house. Pt was going to the bathroom , became dizzy and fell on the wood floor in the hallway landing on left knee, left side and arm. Pt denies hitting head. Pt reports redness, bruising on left knee and left arm with a great deal of pain. Pt reports dizziness is frequent due to blood sugar being high. Blood sugarvalue this morning was high . Pt is having difficulty walking and is unable to lift left leg. Pt is advised to seek evaluation in ED and then call for followup. Pt agrees with this disposition and plan. Protocol Used: Falls and Falling (Adult) Protocol-Based Disposition: Go to ED Now Positive Triage Question: * Injury (or injuries) that need emergency care * All higher-acuity triage questions were negative * Telephone Encounter - Delaney De Los Santos - 12/12/2024 11:24 AM EDT Tc from pt returning call * Telephone Encounter - Cinthia Castaneda RN - 12/12/2024 9:07 AM EDT No claim clerk needed as this contract technical writer speaks Hong Konger. Second attempt Call returned to [facility] for triage below. No answer LVM to return call to [facility] triage line [phone]. * Telephone Encounter - Cinthia Castaneda RN - 12/12/2024 8:45 AM EDT No claim clerk needed as this contract technical writer speaks [place] Konger. Call returned to [facility] for triage below. No answer LVM to return call to [facility] triage line [phone]. * Telephone Encounter - Loulou Ashley - 12/12/2024 8:34 AM EDT Symptom: Fall Outcome: Transfer to a nurse or provider NOW! Reason: Trouble walking that started after the fall The caller accepted this outcome. [phone] Hong Konger documented in this encounter Plan of Treatment Upcoming Encounters Date Type Department Care Team (Late st Contact Info) Description 02/08/2025 2:30 PM EDT Office Visit [facility] MEDICINE [address] [place], [place] [phone] [facility] [address] [place] [address] 02/15/2025 3:00 PM EDT Office Visit [facility] OPTOMETRY [address] [place] [address] Edil, Ellyn, OD [address] [place] [address] 05/26/2025 1:00 PM EDT Office Visit [facility] ADULT DENTAL [address] [place] [address] Santo, Marlee [address] [place] [address] documented as of this encounter Visit Diagnoses Not on filedocumented in this encounter Additional Health Concerns Assessment Noted Time PHQ-9 Depression Total Score: 7 11/22/19 25 3:30 PM EDT documented as of this encounter Care Teams Saw Edge Fuser Circular Relationship Specialty Start Date End Date Marilu Reynoso FNP [address] [place] [address] PCP - General Family Medicine 01/02/22 Raissa To, Rafia [address] [place] [address] Pharmacist Internal Medicine 06/17/24 documented as of this encounter
--- OUTSIDE RECORDS SUMMARY | 2024-12-12 19:17 | XMS_ITS | Encounter Summary ---
Author Organization [employer] Address [address] [place] [address] Care Team Providers Care Jacker Name Role Phone [place] [facility] Primary Care Provider [phone] Raissa To PharmD Unavailable Reason for Visit * Reason Comments Med Refill Encounter Details Date Type Department Care Team ([facility] st Contact Info) Description 08/13/2024 Refill [facility] [address] [place], [place] [phone] [facility] [address] [place] [address] Thoracic back pain, unspecified back pain laterality, [...] the past 12 months, has t he [employer], gas, oil or water company threatened to [...] Description 02/08/2025 2:30 PM EDT Office Visit [facility] MEDICINE [address] [place] [address] [place], [place], [employer] [address] [place] [address] 02/15/2025 3:00 PM EDT Office Visit [facility] OPTOMETRY [address] [place] [address] Edil, Ellyn, OD [address] [place] [address] 05/26/2025 1:00 PM EDT Office Visit [facility] ADULT DENTAL [address] [place] [address] Santo Marlee [address] [place] [address] documented as of this encounter Visit Diagnoses Diagnosis Thoracic back pain, unspecified back pain laterality, unspecified chronicity Mood disorder (CMS/HCC) Unspecified episodic mood disorder documented in this encounter Additional Health Concerns Assessment Noted Time PHQ-9 Depression Total Score: 9 07/18/20 24 1:40 PM EST documented as of this encounter Care Teams Jacker Relationship Specialty Start Date End Date Marilu ReynosoCANDIS [address] [place] [address] PCP - General Family Medicine 01/02/22 Raissa To PharmD [address] [place] [address] Pharmacist Internal Medicine 06/17/24 documented as of this encounter
[2024-12-12 19:19] VITALS: BP 136/67; PULSE 71; RESP 16; TEMP 36.8; O2SAT 96
== END 2024-12-12 19:20 | disposition home or self-care (01) ==
PROVIDERS: Physician Assistant; Emergency Provider Emergency Medicine; PCP Registered Nurse
DX: S30.1XXA Contusion of abdominal wall, initial encounter (principal); M79.601 Pain in right arm; M79.602 Pain in left arm; J44.9 Chronic obstructive pulmonary disease, unspecified; W19.XXXA Unspecified fall, initial encounter; Y93.9 Activity, unspecified; Y92.9 Unspecified place or not applicable; Y99.8 Other external cause status; Z91.81 History of falling; Z79.899 Other long term (current) drug therapy
CPT/HCPCS: 36415; 80053; 81001; 82010; 82947; 83690; 85025; 99283; 99284

== ENCOUNTER 2025-01-01 09:51 | Emergency (ER) | payer MEDICAID, SELFPAY ==
--- NOTE | ~2025-01-01 | XR_ITS ---
CLINICAL HISTORY: dyspnea 2 view chest x-ray Comparison: 07/02/2024 Findings: The lungs are clear. Normal size heart. No acute fracture. Upper abdominal surgical clips. IMPRESSION: 1. No acute findings. This document has been electronically signed by: Destiny Lugo MD on 01/01/2025 11:32:41
[2025-01-01 09:56] VITALS: BP 95/63; PULSE 87; RESP 20; TEMP 36.7; O2SAT 95; BMI 37.8
--- NOTE | 2025-01-01 10:01 | ECG_ITS ---
Test Reason : DYPNEA Blood Pressure : */* mmHG Vent. Rate : 82 BPM Atrial Rate : 82 BPM P-R Int : 150 ms QRS Dur : 98 ms QT Int : 390 ms P-R-T Axes : 59 -53 37 degrees QTcB Int : 455 ms Normal sinus rhythm Incomplete right bundle branch block Left anterior fascicular block Minimal voltage criteria for LVH, may be normal variant ( [place] product ) Abnormal ECG When compared with ECG of 02-Jul-2024 02:38, Incomplete right bundle branch block is now Present Referred By: Generic ED Physician Electronically Signed By: Chdad Abad
--- NOTE | 2025-01-01 10:08 | ED.GENADULT ---
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 She states that she has been using her albuterol inhaler at home multiple times daily without relief. She does use a daily inhaler as well but does not recall the name of the. She states that she has not been using nebulizer she does not know where the machine is. She endorses having tactile fevers but has not checked a temperature. Denies any known sick contacts. Denies orthopnea, PND. She is a chronic cigarette smoker, smoking approximately 8-10 cigarettes daily. Denies trauma, sore throat, difficulty swallowing, neck pain, nausea, vomiting, numbness or tingling of the extremities, recent lower extremity pain or swelling. Denies alcohol use, or recreational drugs. Related Data Home Medications ?Medication ?Instructions ?Recorded ?Confirmed blood sugar diagnostic (FreeStyle #10 ea 07/24/20 03/27/22 Lite Strips) blood-glucose meter (FreeStyle #1 ea 07/24/20 03/27/22 Lite Meter kit) lancets 28 gauge (FreeStyle #100 ea 07/24/20 03/27/22 Lancets) gabapentin 100 mg capsule 2 cap PO BID 01/13/22 07/02/24 insulin glargine 100 unit/mL 22 unit subcut BEDTIME 01/13/22 07/02/24 subcutaneous solution (Lantus U-100 Insulin) levothyroxine 75 mcg tablet 1 tab PO DAILY@0600 03/27/22 07/02/24 montelukast 10 mg tablet 1 tab PO BEDTIME 03/27/22 07/02/24 omeprazole 20 mg capsule,delayed 1 cap PO DAILY@0630 03/27/22 07/02/24 release rosuvastatin 40 mg tablet 1 tab PO DAILY 03/27/22 07/02/24 sertraline 50 mg tablet 1 tab PO DAILY 03/27/22 07/02/24 olmesartan 20 mg tablet 20 mg PO DAILY 03/28/22 07/02/24 albuterol sulfate 90 mcg/actuation 2 puff inhalation Q6H PRN 07/02/24 07/02/24 aerosol inhaler (Ventolin HFA) Shortness Of Breath Or Wheezing aspirin 81 mg tablet,delayed 81 mg PO DAILY 07/02/24 07/02/24 release cyanocobalamin (vitamin B-12) 2,000 mcg PO DAILY 07/02/24 07/02/24 1,000 mcg tablet dulaglutide 4.5 mg/0.5 mL 4.5 mg subcut FR@0900 07/02/24 07/02/24 subcutaneous pen injector (Trulicity) insulin lispro 100 unit/mL 1 sliding scale dose subcut TIDAC 07/02/24 07/02/24 subcutaneous pen metformin 500 mg tablet 500 mg PO BIDWM 07/02/24 07/02/24 quetiapine 200 mg tablet 200 mg PO BEDTIME 07/02/24 07/02/24 Previous Rx's ?Medication ?Instructions ?Recorded nicotine 21 mg/24 hr daily 21 mg transdermal DAILY #30 ea 07/05/24 transdermal patch psyllium husk 3.4 gram/5.4 gram 1 tbsp PO DAILY #660 grams 07/05/24 oral powder (Metamucil) azithromycin 250 mg tablet See Rx Instructions PO .COMPLEX #6 01/01/25 tabs prednisone 20 mg tablet 20 mg PO DAILY #4 tabs 01/01/25 Allergies Allergy/AdvReac Type Severity Reaction Status Date / Time lisinopril [LISINOPRIL] Allergy Unknown UNKNOWN Verified 01/01/25 09:59 Penicillins Allergy Unknown RASH Verified 01/01/25 09:59 sulfamethoxazole Allergy Unknown RASH Verified 01/01/25 09:59 trimethoprim Allergy Unknown RASH Verified 01/01/25 09:59 Review of Systems Review of Systems: Yes all other systems are reviewed and are negative [facility] Past Medical History Attestation statement: The following information was validated with the patient. Source: old records reviewed Medical History Smoking Other and unspecified hyperlipidemia Essential hypertension Type 2 diabetes mellitus with unspecified complications Palpitations Hypotension Anemia Migraine aura without headache Anxiety Depression Asthma Hyperlipidemia LDL goal <100 Vitamin D insufficiency Type 2 diabetes mellitus with hyperglycemia, with long-term current use of insulin Surgical History History of cholecystectomy Family History Family History Mother Diabetes Brother Diabetes Social History Social History Household Members: Family Housing: House Alcohol intake: current Alcohol intake frequency: holidays/special occasions only Alcohol type: beer and wine Patient Tobacco Use Status: Current everyday Tobacco user Tobacco use type: Cigarette Cigarette Packs Per Day: 0.3 Cigarettes Per Day: 6.0 Smoked in Last 30 Days: No e-Cigarette/Vaping Use: Never Used Use of substances other than those prescribed or required for medical reasons: No Advance Directives: No Advance Directives Information Provided: Yes Patient : No service: No Current occupational status: unemployed Physical Exam ED Vital Signs: Vital Signs - 24 hr 01/01/25 09:56 01/01/25 10:33 01/01/25 12:20 Temperature 98.1 F Pulse Rate 87 78 83 Respiratory Rate 20 26 H 21 H Blood Pressure 95/63 135/57 L Pulse Oximetry 95 97 Oxygen Delivery Method Room Air Room Air BMI result Body Mass Index 37.8 Appearance: Alert.?Oriented to person, place and time. No acute distress.?Normal affect. Eyes: Pupils equal, round and reactive to light.? ENT: Pharynx normal.?? Neck: Normal inspection.? Neck supple.?? CVS: Heart sounds normal. Normal heart rate and rhythm.? Pulses normal.?? Respiratory: No respiratory distress.? Lung sounds with expiratory wheezing bilaterally. No increased work of breathing. No hypoxia. No tachypnea Abdomen: Soft and non-tender. Normoactive bowel sounds. Skin: Skin warm and dry.? Normal skin color.? Extremities: No lower extremity edema.? No calf ttp? Neuro: Moves all extremities spontaneously. Sensation intact bilaterally. No focal neuro deficits. Ambulates with normal steady gait. Course Reevaluation(s) Reevaluation #1: Expiratory wheezing has improved after nebulizer. She reports feeling generally somewhat better respiratory catherine. Will attempt an ambulatory O2 trial to see how she does as far as work of breathing if there was any hypoxia. She does admit that over the past 3 days she has not been taking her insulin because she has not been feeling well she is supposed to take sliding scale insulin with meals as well as Lantus 26 units at night, although again appears not taken this over the past 3 days which is likely why she is hyperglycemic today. I did discuss the importance managing her diabetes even during illness as this can worsen her symptoms, and furthermore steroids which can often be used to help her asthma exacerbation will make her blood sugars even. She has verbalized understanding of this and states that she understands the importance of managing her diabetes to prevent complications such as DKA Reevaluation #2: Remains with hyperglycemia with quitting care glucose 411. Patient to receive normal saline 500 mL IV in addition to insulin lispro 10 units subcutaneously. She had an ambulatory O2 trial with O2 saturation 97% and higher, no increased work of breathing, no notable dyspnea. From a respiratory standpoint feel that she stable for discharge with asthma exacerbation/bronchitis, considering her hyperglycemia would use lower dose steroid prednisone 20 mg daily for 5 days with close monitoring of blood glucose levels at home, she does have sliding-scale insulin that she can adjust accordingly. We will re-evaluate blood glucose after insulin and fluids Time: 12:54 Reevaluation #3: Remains without respiratory distress. Repeat point of care glucose of 353. Discharged home for asthma exacerbation/bronchitis with strict return precautions and guidance on importance of diabetes management. She verbalizes understanding. Time: 15:05 Medications Administered Discontinued Medications Generic Name Dose Route Start Last Admin Trade Name Alexandro PRN Reason Stop Dose Admin Albuterol Sulfate 5 mg/ 0 mg 01/01/25 10:26 01/01/25 10:28 Albuterol/Ipratropium 3 ml INHALE 01/01/25 10:27 1 each ONCE ONE Administration Sodium Chloride 500 mls @ 999 mls/hr 01/01/25 13:00 01/01/25 14:05 Ns IV 01/01/25 13:30 Infused .Q31M TRINH Infusion Insulin Human Lispro 10 unit 01/01/25 12:52 01/01/25 13:22 Insulin Lispro 100 Unit/Ml 3 Ml Vial SUBCUT 01/01/25 12:53 10 unit ONCE ONE Administration Insulin Human Regular 5 unit 01/01/25 10:41 01/01/25 11:01 Insulin Regular, Human 100 Unit/Ml 10 Ml Vial IVPUSH 01/01/25 10:42 5 unit ONCE ONE Administration Methylprednisolone Sodium Succinate 40 mg 01/01/25 10:41 01/01/25 11:01 Methylprednisolone Sod Succ 40 Mg/Ml Vial IVPUSH 01/01/25 10:42 40 mg ONCE ONE Administration Medical Decision Making Medical Decision Making [facility] Narrative: Patient is a 54-year-old female past medical history of hypertension, hyperlipidemia, insulin-dependent type 2 diabetes, chronic smoker, asthma, depression/anxiety, hypothyroidism presenting with complaints of asthma exacerbation nonproductive cough shortness breath difficulty breathing and chest pain during cough unrelieved with albuterol inhaler at home. Continues to smoke cigarettes. Overall well-appearing, nontoxic, afebrile, no respiratory distress while at rest, she does have some mild dyspnea on exertion, has expiratory wheezing bilaterally. She has no hypoxia or tachypnea and she is afebrile. No rash or lesions, urticaria, or evidence of angioedema to suggest allergic reaction/anaphylaxis. No swallowing difficulties to suggest aspiration. No associated lower extremity redness pain or swelling, history of VTE/malignancy to suggest ACS, CHF, pericardial effusion, or pulmonary embolism (Wells score low risk). No palpitations or history of known arrhythmias. No recent trauma or injury, no tracheal deviation, unlikely tension pneumothorax. No acute bleeding or known anemia, no associated dizziness fatigue or chest pain to suggest acute anemia. Given her history of asthma, suspect most likely consistent with asthma exacerbation although given her longstanding history of smoking as well she may have some underlying undiagnosed COPD. She states that she has an upcoming appointment to see a car checker for the 1st time. She has otherwise been managed by her primary care doctor. Initial EKG revealing normal sinus rhythm incomplete right bundle-branch, ventricular rate of 82, QTC 455, no ST elevation. Chest x-ray is without consolidation or infiltrate 10:40 received call from lab regarding critical glucose of 599, non-anion gap, not consistent with DKA patient to receive insulin regular 5 units IV in addition to low-dose Solu-Medrol Differential Diagnosis Differential Diagnoses: The differential diagnosis associated with the presentation includes (See narrative above) Admission/Observation Consideration of admission/observation: Escalation of care including admission/observation considered Lab Data [facility] Lab Attestation statement: I reviewed the patient's lab results. CBC is without leukocytosis anemia or thrombocytopenia. Mild hyponatremia 131 which I suspect a pseudo hyponatremia given her hyperglycemia of 599 otherwise without significant electrolyte derangement. Non-anion gap hyperglycemia. No JULIO. High sensitive troponin below detectable limits. BNP within normal range. 01/01/25 10:15 01/01/25 10:15 Labs: Lab Results 01/01/25 01/01/25 01/01/25 Range/Units 10:15 11:00 12:46 WBC 7.2 (4.8-10.8) X10*3/uL RBC 4.43 (4.20-5.50) X10*6/uL Hgb 12.5 (12.0-16.0) g/dl Hct 37.0 (37.0-47.0) % MCV 83.5 (80.0-98.0) fL MCH 28.2 (27.0-33.0) pg MCHC 33.8 (31.0-35.0) g/dl RDW 13.1 (11.0-16.0) % Plt Count 177 (160-400) X10*3/uL MPV 11.2 (9.4-12.3) fL Immature Gran % (Auto) 0.4 (0.0-0.4) % Neut % (Auto) 67.8 (45-73) % Lymph % (Auto) 21.8 (20-40) % [place] % (Auto) 6.7 (2-11) % Eos % (Auto) 2.9 (0-4) % Baso % (Auto) 0.4 (0-2) % Lymph # (Auto) 1.6 (1.2-4.9) X10*3/uL [place] # (Auto) 0.5 (0.1-1.2) X10*3/uL Eos # (Auto) 0.2 (0.0-0.4) X10*3/uL Baso # (Auto) 0.0 (0.0-0.2) X10*3/uL Abs Immat Gran (auto) 0.03 (0.00-0.03) X10*3/uL Absolute Neuts (auto) 4.9 (2.0-8.3) x10*3/uL Absolute Nucleated RBC 0.000 (0.0-0.012) X10*3/uL Nucleated RBC % (auto) 0.0 (0.0-0.2) /100WBC Sodium 131 L (135-145) mmol/L Potassium 4.2 (3.3-5.1) mmol/L Chloride 94 L (96-108) mmol/L Carbon Dioxide 21 L (22-29) mmol/L Anion Gap 20 (12-20) BUN 15 (9-16) mg/dL Creatinine 1.32 (0.5-1.4) mg/dL Estim Creat Clear Calc 47.9 Estimated GFR 42 POC Glucose 494 H* 415 H* (60-115) mg/dL Random Glucose 599 H* (60-115) mg/dL Calcium 9.3 (8.4-10.2) mg/dL Troponin I High Sens < 2.7 (<3.5-17.0) ng/L B-Natriuretic Peptide < 10 (<100) pg/mL Influenza Type A (PCR) NEGATIVE (Negative) Influenza Type B (PCR) NEGATIVE (Negative) RSV RNA Qual (PCR) NEGATIVE (Negative) SARS-CoV-2 RNA (RT-PCR) NEGATIVE (Negative) 01/01/25 Range/Units 14:49 WBC (4.8-10.8) X10*3/uL RBC (4.20-5.50) X10*6/uL Hgb (12.0-16.0) g/dl Hct (37.0-47.0) % MCV (80.0-98.0) fL MCH (27.0-33.0) pg MCHC (31.0-35.0) g/dl RDW (11.0-16.0) % Plt Count (160-400) X10*3/uL MPV (9.4-12.3) fL Immature Gran % (Auto) (0.0-0.4) % Neut % (Auto) (45-73) % Lymph % (Auto) (20-40) % [place] % (Auto) (2-11) % Eos % (Auto) (0-4) % Baso % (Auto) (0-2) % Lymph # (Auto) (1.2-4.9) X10*3/uL [place] # (Auto) (0.1-1.2) X10*3/uL Eos # (Auto) (0.0-0.4) X10*3/uL Baso # (Auto) (0.0-0.2) X10*3/uL Abs Immat Gran (auto) (0.00-0.03) X10*3/uL Absolute Neuts (auto) (2.0-8.3) x10*3/uL Absolute Nucleated RBC (0.0-0.012) X10*3/uL Nucleated RBC % (auto) (0.0-0.2) /100WBC Sodium (135-145) mmol/L Potassium (3.3-5.1) mmol/L Chloride (96-108) mmol/L Carbon Dioxide (22-29) mmol/L Anion Gap (12-20) BUN (9-16) mg/dL Creatinine (0.5-1.4) mg/dL Estim Creat Clear Calc Estimated GFR POC Glucose 353 H* (60-115) mg/dL Random Glucose (60-115) mg/dL Calcium (8.4-10.2) mg/dL Troponin I High Sens (<3.5-17.0) ng/L B-Natriuretic Peptide (<100) pg/mL Influenza Type A (PCR) (Negative) Influenza Type B (PCR) (Negative) RSV RNA Qual (PCR) (Negative) SARS-CoV-2 RNA (RT-PCR) (Negative) Independent Interpretation I performed an independent interpretation of an: EKG (See narrative above) and Plain X-Ray Radiology Impression Discussion of test interpretation with radiology: I have reviewed the radiologist's reading. Radiologist Impression: 2 view chest x-ray Comparison: 07/02/2024 Findings: The lungs are clear. Normal size heart. No acute fracture. Upper abdominal surgical clips. IMPRESSION: 1. No acute findings. External Record Review External record reviewed: Outpatient record Chronic Conditions Patient?s care impacted by: Other (See narrative above) Discharge Plan Discharge Clinical Impression: Bronchitis, Asthma with exacerbation, Type 2 diabetes mellitus with hyperglycemia, with long-term current use of insulin Patient Disposition: Home, Self-Care Instructions: Acute Bronchitis (ED), Diabetic Hyperglycemia (ED) Additional Instructions: You are being given a prescription for prednisone to help manage your asthma exacerbation. There was no evidence of pneumonia on your chest x-ray However as discussed it is very important to make sure that you are managing your blood sugars daily as advised by your primary care doctor following your sliding scale for your insulin as well as your long-acting insulin at night even if you are feeling unwell. Blood sugar levels left untreated can put you at risk for long-term damage to the eyes, kidneys, heart, as well as severe life-threatening complications such as DKA. the steroids can elevate your blood sugar so you must monitor this closely and take your medications accordingly. Return to emergency department any new or worsening symptoms or concerns. Contact your primary care provider to arrange for a follow-up appointment within the next 3 days. Prescriptions: New azithromycin 250 mg tablet See Rx Instructions .ROUTE .COMPLEX Qty: 6 0RF Rx Instructions: For 250 mg dose pack: take 500 mg today (day 1), then 250 mg for 4 days (days 2-5) prednisone 20 mg tablet 20 mg PO DAILY Qty: 4 0RF No Action insulin glargine [Lantus U-100 Insulin] 100 unit/mL solution 22 unit subcut BEDTIME gabapentin 100 mg capsule 2 cap PO BID levothyroxine 75 mcg tablet 1 tab PO DAILY@0600 omeprazole 20 mg capsule,delayed release(DR/EC) 1 cap PO DAILY@0630 montelukast 10 mg tablet 1 tab PO BEDTIME sertraline 50 mg tablet 1 tab PO DAILY rosuvastatin 40 mg tablet 1 tab PO DAILY olmesartan 20 mg Tablet 20 mg PO DAILY metformin 500 mg tablet 500 mg PO BIDWM quetiapine 200 mg tablet 200 mg PO BEDTIME cyanocobalamin (vitamin B-12) 1,000 mcg tablet 2,000 mcg PO DAILY aspirin 81 mg tablet,delayed release (DR/EC) 81 mg PO DAILY albuterol sulfate [Ventolin HFA] 90 mcg/actuation HFA aerosol inhaler 2 puff INHALATION Q6H PRN (Reason: Shortness Of Breath Or Wheezing) Trulicity 4.5 mg/0.5 mL pen injector 4.5 mg subcut FR@0900 insulin lispro 100 unit/mL insulin pen 1 sliding scale dose subcut TIDAC Metamucil 3.4 gram/5.4 gram powder 1 tbsp PO DAILY Qty: 660 0RF Rx Instructions: mix into at least 8 oz of water or juice before administering nicotine 21 mg/24 hr Patch 24 Hour 21 mg transdermal DAILY Qty: 30 0RF (DME) lancets [FreeStyle Lancets] 28 gauge misc See Rx Instructions .ROUTE .MEDSUPPLY Qty: 100 Rx Instructions: As directed (DME) blood-glucose meter [FreeStyle Lite Meter] Kit See Rx Instructions .ROUTE .MEDSUPPLY Qty: 1 Rx Instructions: As directed (DME) FreeStyle Lite Strips Strip See Rx Instructions .ROUTE .MEDSUPPLY Qty: 10 Rx Instructions: As directed Referrals: Gabo Ojeda MD [Primary Care Provider] - Print Language: Tanzanian
[2025-01-01 10:20] LABS: MANUAL DIFF FLAG NO
[2025-01-01 10:21] LABS: Basophils Percent Auto 0.4 % (0-2); Eosinophils Absolute Auto 0.2 X10*3/uL (0.0-0.4); Eosinophils Percent Auto 2.9 % (0-4); Hemoglobin 12.5 g/dl (12.0-16.0); Imm Gran Abs Auto 0.03 X10*3/uL (0.00-0.03); Imm Gran Pct Auto 0.4 % (0.0-0.4); Lymphocytes Absolute Auto 1.6 X10*3/uL (1.2-4.9); Lymphocytes Percent Auto 21.8 % (20-40); Mean Corpuscular HGB Conc 33.8 g/dl (31.0-35.0); Mean Corpuscular Hemoglobin 28.2 pg (27.0-33.0); Mean Corpuscular Volume 83.5 fL (80.0-98.0); Mean Platelet Volume 11.2 fL (9.4-12.3); Monocytes Absolute Auto 0.5 X10*3/uL (0.1-1.2); Monocytes Percent Auto 6.7 % (2-11); Neutrophils Absolute Auto 4.9 x10*3/uL (2.0-8.3); Neutrophils Percent Auto 67.8 % (45-73); Platelet Count 177 X10*3/uL (160-400); Red Blood Count 4.43 X10*6/uL (4.20-5.50); Red Cell Distribution Width 13.1 % (11.0-16.0); White Blood Count 7.2 X10*3/uL (4.8-10.8)
[2025-01-01] MEDS: Albuterol Sulfate 5 MG, Albuterol/Iprat 2.5/0.5MG 3 ML 3 ML INHALE (10:28)
[2025-01-01 10:33] VITALS: PULSE 78; RESP 26; O2SAT 97
[2025-01-01 10:36] LABS: Anion Gap 20 (12-20); Blood Urea Nitrogen 15 mg/dL (9-16); Calcium 9.3 mg/dL (8.4-10.2); Carbon Dioxide 21 mmol/L (22-29); Chloride 94 mmol/L (96-108); Creatinine Clr Calc Pharmacy 47.9; Estimated Glomerular Filt Rate 42; Potassium 4.2 mmol/L (3.3-5.1); Sodium 131 mmol/L (135-145)
[2025-01-01 10:40] LABS: Glucose Random 599 mg/dL (60-115)
[2025-01-01 10:44] LABS: Troponin-I High Sensitivity < 2.7 ng/L (<3.5-17.0)
[2025-01-01 10:47] LABS: B Type Natriuretic Peptide < 10 pg/mL (<100)
[2025-01-01] MEDS: methylPREDNISolone Sod Succ 40 MG/ML VIAL IVPUSH (11:01)
[2025-01-01] MEDS: Insulin Regular, Human 100 UNIT/ML 10 ML VIAL IVPUSH (11:01)
[2025-01-01 11:06] LABS: Glucose, Whole Blood 494 mg/dL (60-115)
[2025-01-01 11:20] LABS: Influenza A PCR NEGATIVE (Negative); Influenza B PCR NEGATIVE (Negative); Resp Syncy Virus RNA Qual PCR NEGATIVE (Negative); SARS COV2 PCR INHOUSE NEGATIVE (Negative)
--- NOTE | 2025-01-01 11:20 | PC.NURSE ---
Report received. Taken over care at this time.
[2025-01-01 12:20] VITALS: BP 135/57; PULSE 83; RESP 21; O2SAT 97
[2025-01-01 12:51] LABS: Glucose, Whole Blood 415 mg/dL (60-115)
--- NOTE | 2025-01-01 12:51 | PC.NURSE ---
Pt. had walking oxygen saturation was 97% RA no s/s of distress or sob. Pt. ambulated with [facility] and back to room. Notified SADAF Gomez.
[2025-01-01] MEDS: 0.9 % Sodium Chloride 500 ML 999 ML IV (13:19)
[2025-01-01] MEDS: Insulin Lispro 100 UNIT/ML 3 ML VIAL 10 UNIT SUBCUT (13:22)
[2025-01-01 14:00] VITALS: BP 135/70; PULSE 89; RESP 18; O2SAT 96
[2025-01-01 14:52] LABS: Glucose, Whole Blood 353 mg/dL (60-115)
[2025-01-01 15:21] VITALS: BP 135/70; PULSE 89; RESP 18; TEMP 37.2; O2SAT 96
== END 2025-01-01 15:22 | disposition home or self-care (01) ==
PROVIDERS: Emergency Provider Emergency Medicine; PCP Internal Medicine
DX: J40 Bronchitis, not specified as acute or chronic (principal); J45.901 Unspecified asthma with (acute) exacerbation; E11.65 Type 2 diabetes mellitus with hyperglycemia; R06.02 Shortness of breath; I10 Essential (primary) hypertension; E78.5 Hyperlipidemia, unspecified; F17.210 Nicotine dependence, cigarettes, uncomplicated; Z79.4 Long term (current) use of insulin; Z79.82 Long term (current) use of aspirin; Z79.85 Long-term (current) use of injectable non-insulin antidiabetic drugs; Z79.02 Long term (current) use of antithrombotics/antiplatelets; Z79.899 Other long term (current) drug therapy; Z03.818 Encounter for observation for suspected exposure to other biological agents ruled out
CPT/HCPCS: 0241U; 36415; 71046; 80048; 82947; 83880; 84484; 85025; 93005; 94640; 96361; 96374; 96375; 99284; 99285; J2919

== ENCOUNTER → 2025-01-01 10:01 | Outpatient (BNV) | payer MEDICAID, SELFPAY | PROVIDERS: Emergency Provider Emergency Medicine; PCP Internal Medicine; Visit Provider Radiology Diagnostic Radiology | DX: R06.00 Dyspnea, unspecified (principal) | CPT/HCPCS: 71046 ==

== ENCOUNTER → 2025-01-01 10:01 | Outpatient (BNV) | payer MEDICAID, SELFPAY | PROVIDERS: Emergency Provider Emergency Medicine; PCP Internal Medicine; Visit Provider Internal Medicine Cardiovascular Disease | DX: I45.2 Bifascicular block (principal) | CPT/HCPCS: 93010 ==

== ENCOUNTER 2025-02-01 17:58 | Emergency (ER) | payer MEDICAID, SELFPAY ==
--- NOTE | ~2025-02-01 | XR_ITS ---
CLINICAL HISTORY: trauma AP pelvis Comparison: None Findings: No fractures or dislocations. No significant arthritic change. Pubic bones and sacroiliac joints are unremarkable. No radiopaque foreign body. Left and right hip joints are symmetric. Impression: 1. Normal pelvis, no signs of skeletal trauma. This document has been electronically signed by: Santos Brown MD on 02/01/2025 19:23:27
--- NOTE | ~2025-02-01 | XR_ITS ---
CLINICAL HISTORY: trauma 3 views left shoulder Comparison: None Findings: No significant arthritic change. Glenohumeral joint is in good alignment. There is jagged contour involving the superior margin of the scapula suspicious for scapular fracture The coracoid process projects above the acromion and this is may be due to x-ray positioning. No radiopaque foreign body Normal visualized left chest Impression: 1. Mildly displaced fracture of the distal tip of the clavicle with grade 3 AC separation. 2. Irregular upper surface of the scapula suspicious for scapular fracture. Consider CT or plain film scapular view. 3. Also, cannot exclude choroid fracture although this may be image projection which occurred during patient positioning for x-ray. This document has been electronically signed by: Santos Brown MD on 02/01/2025 19:21:59
--- NOTE | ~2025-02-01 | XR_ITS ---
CLINICAL HISTORY: trauma 2 views left clavicle Comparison: None Findings: There is a mildly displaced fracture involving the tip of the left clavicle. No significant arthritic change. No radiopaque foreign body. Impression: Mildly displaced fracture involving distal tip of the left clavicle There is acromioclavicular separation with elevation of the distal clavicle consistent with grade 3 separation. This document has been electronically signed by: Santos Brown MD on 02/01/2025 19:14:55
--- NOTE | ~2025-02-01 | CT_ITS ---
CLINICAL HISTORY: trauma CT Chest with out IV contrast: Comparison: None Findings: Heart size is normal, with no pericardial effusion Aorta diameter is normal Pulmonary artery diameter is unremarkable. Trachea and esophagus are unremarkable. Lymph nodes: No adenopathy Lungs: Clear. No pulmonary consolidations. No pleural fluid. No pneumothorax Pleura: No pleural effusion Skeletal: No fractures Below the diaphragm: Regional visceral organs are unremarkable. Gallbladder is surgically absent. Impression: Unremarkable CT of the chest, no signs of acute trauma This document has been electronically signed by: Santos Brown MD on 02/01/2025 20:11:21
[2025-02-01 18:18] VITALS: BP 152/64; PULSE 84; RESP 16; TEMP 36.5; O2SAT 99; BMI 38.0
--- NOTE | 2025-02-01 18:21 | ED.GENADULT ---
HPI - General Adult General Chief complaint: Fall Stated complaint: L shoulder/L thigh pain Time Seen by Provider: 02/01/25 22:34 Source: patient Mode of arrival: ambulatory Limitations: no limitations History of Present Illness ED Provider: Dr. Ivy Charles HPI narrative: Patient comes to the emergency room complaining of left shoulder pain. Patient states that 3 days ago she was crawling up the stairs in all 4 extremities due to a previous injury from several months ago, patient states that she missed a step with her hand and fell on her left shoulder. Patient denies being on blood thinners. Patient states that since the fall, she has been complaining of ongoing left shoulder pain. Denies numbness tingling. Denies loss of strength Related Data Home Medications ?Medication ?Instructions ?Recorded ?Confirmed blood sugar diagnostic (FreeStyle #10 ea 07/24/20 03/27/22 Lite Strips) blood-glucose meter (FreeStyle #1 ea 07/24/20 03/27/22 Lite Meter kit) lancets 28 gauge (FreeStyle #100 ea 07/24/20 03/27/22 Lancets) gabapentin 100 mg capsule 2 cap PO BID 01/13/22 07/02/24 insulin glargine 100 unit/mL 22 unit subcut BEDTIME 01/13/22 07/02/24 subcutaneous solution (Lantus U-100 Insulin) levothyroxine 75 mcg tablet 1 tab PO DAILY@0600 03/27/22 07/02/24 montelukast 10 mg tablet 1 tab PO BEDTIME 03/27/22 07/02/24 omeprazole 20 mg capsule,delayed 1 cap PO DAILY@0630 03/27/22 07/02/24 release rosuvastatin 40 mg tablet 1 tab PO DAILY 03/27/22 07/02/24 sertraline 50 mg tablet 1 tab PO DAILY 03/27/22 07/02/24 olmesartan 20 mg tablet 20 mg PO DAILY 03/28/22 07/02/24 albuterol sulfate 90 mcg/actuation 2 puff inhalation Q6H PRN 07/02/24 07/02/24 aerosol inhaler (Ventolin HFA) Shortness Of Breath Or Wheezing aspirin 81 mg tablet,delayed 81 mg PO DAILY 07/02/24 07/02/24 release cyanocobalamin (vitamin B-12) 2,000 mcg PO DAILY 07/02/24 07/02/24 1,000 mcg tablet dulaglutide 4.5 mg/0.5 mL 4.5 mg subcut FR@0900 07/02/24 07/02/24 subcutaneous pen injector (Trulicity) insulin lispro 100 unit/mL 1 sliding scale dose subcut TIDAC 07/02/24 07/02/24 subcutaneous pen metformin 500 mg tablet 500 mg PO BIDWM 07/02/24 07/02/24 quetiapine 200 mg tablet 200 mg PO BEDTIME 07/02/24 07/02/24 Previous Rx's ?Medication ?Instructions ?Recorded nicotine 21 mg/24 hr daily 21 mg transdermal DAILY #30 ea 07/05/24 transdermal patch psyllium husk 3.4 gram/5.4 gram 1 tbsp PO DAILY #660 grams 07/05/24 oral powder (Metamucil) azithromycin 250 mg tablet See Rx Instructions PO .COMPLEX #6 01/01/25 tabs prednisone 20 mg tablet 20 mg PO DAILY #4 tabs 01/01/25 ibuprofen 600 mg tablet 600 mg PO Q8H PRN fever or pain 02/01/25 #30 tabs tramadol 50 mg tablet 50 mg PO Q8H PRN pain #10 tabs 02/01/25 Allergies Allergy/AdvReac Type Severity Reaction Status Date / Time lisinopril (LISINOPRIL) Allergy Unknown UNKNOWN Verified 02/01/25 18:22 Penicillins Allergy Unknown RASH Verified 02/01/25 18:22 sulfamethoxazole Allergy Unknown RASH Verified 02/01/25 18:22 trimethoprim Allergy Unknown RASH Verified 02/01/25 18:22 Review of Systems Review of Systems: Constitutional : No Weight loss, No Fever, No Chills, No Night Sweats, No Fatigue, No Malaise ENT/Mouth : No Hearing loss, No Ear Pain, No Nasal Congestion, No Sinus Pain, No Hoarseness, No sore throat, No Rhinorrhea, No Swallowing Difficulty Eyes: No Eye Pain, No Swelling, No Redness, No Foreign Body, No Discharge, No Vision Changes Cardiovascular : No Chest Pain, No SOB, No Dyspnea on Exertion, No Orthopnea, No Edema, No Palpitations Respiratory : No Cough, No Sputum, No Wheezing, No Smoke Exposure, No Dyspnea Gastrointestinal : No Nausea, No Vomiting, No Diarrhea, No Constipation, No abdominal Pain, No Hematochezia, No Melena Genitourinary : no irregular bleeding, No Dysuria, No Urinary Frequency, No Hematuria, No Urinary Incontinence, No Urgency, No Flank Pain, No Urinary Flow Changes, No Hesitancy Musculoskeletal : Complaining of left shoulder pain, complaining of left clavicular pain, No Myalgias, No Joint Swelling Skin : No Skin Lesions, No rash Neuro : No Weakness, No Numbness, No Paresthesias, No Loss of Consciousness, No Dizziness, No Headache Psych : No Anxiety/Panic, No Depression, No SI/HI/AH/VH, No Social Issues, Heme/Lymph: No Bruising, No Bleeding,No Lymphadenopathy Endocrine : No Polyuria, No Polydipsia, No Temperature Intolerance [facility] Past Medical History Medical History Smoking Other and unspecified hyperlipidemia Essential hypertension Type 2 diabetes mellitus with unspecified complications Palpitations Hypotension Anemia Migraine aura without headache Anxiety Depression Asthma Hyperlipidemia LDL goal <100 Vitamin D insufficiency Type 2 diabetes mellitus with hyperglycemia, with long-term current use of insulin Surgical History History of cholecystectomy Family History Family History Mother Diabetes Brother Diabetes Social History Social History Household Members: Family Housing: House Alcohol intake: current Alcohol intake frequency: holidays/special occasions only Alcohol type: beer and wine Patient Tobacco Use Status: Current everyday Tobacco user Tobacco use type: Cigarette Cigarette Packs Per Day: 0.3 Cigarettes Per Day: 6.0 e-Cigarette/Vaping Use: Never Used Advance Directives: Yes Advance Directives on File: Yes Advance Directives Date on File: 07/06/24 Do you have a plan to hurt others: No Plan service: No Current occupational status: unemployed Physical Exam ED Vital Signs: Vital Signs - 24 hr 02/01/25 18:18 02/01/25 20:41 Temperature 97.7 F 97.4 F Pulse Rate 84 80 Respiratory Rate 16 16 Blood Pressure 152/64 H 110/50 L Pulse Oximetry 99 99 Oxygen Delivery Method Room Air Room Air BMI result Body Mass Index 38.0 Const Other: Appearance: Alert. Oriented X3. No acute distress. Well-appearing Eyes: Pupils equal, round and reactive to light. ENT: Pharynx normal. Neck: Normal inspection. Neck supple. No lymph nodes noted. No crepitus CVS: Normal heart rate and rhythm. Pulses normal. Normal S1 and S2 Respiratory: No respiratory distress. Breath sounds normal. No Wheezing. No rales Abdomen: Soft and nontender. No rigidity. No distention. Skin: Skin warm and dry. Normal skin color. Normal skin turgor. Extremities: No lower extremity edema. No Lacerations. No Rash. Patient is unable to move her left shoulder due to pain, not able to abduct, significantly reduced range of motion due to pain in the shoulder/clavicle, no obvious deformity, pain to palpation over the clavicle distal 1/3 Neuro: Oriented X 3. No motor deficit. No sensory deficit. Moving all extremities. No slurred speech. CN 2 through 12 grossly intact Psych: calm, cooperative, normal affect Course Course Course Narrative: RME, this is a rapid medical exam performed by Luis aHider please refer to primary provider for complete H&P- 54-year-old female presents for evaluation of left shoulder pain and pelvic pain after a fall that happened 3 days ago. She reports that she tripped down about 7 stairs and fell. Plan for x-rays of the left shoulder, clavicle and pelvis Medications Administered Discontinued Medications Generic Name Dose Route Start Last Admin Trade Name Freq PRN Reason Stop Dose Admin Oxycodone HCl 5 mg 02/01/25 22:42 02/01/25 22:53 Oxycodone Hcl Immed Release 5 Mg Tablet PO 02/01/25 22:43 5 mg ONCE ONE Administration Medical Decision Making Medical Decision Making [facility] Narrative: Patient is x-rays of the pelvis tetanus show any acute abnormality. X-rays of the shoulder/clavicle show a mildly displaced fracture involving the distal tip of the left clavicle with acromioclavicular separation. With the elevation of the distal clavicle Initial x-rays showed a possible scapular fracture, CT scan was negative. Patient was given a p.o. oxycodone and also was provided with a sling. Patient was instructed to follow-up with Orthopedics, the phone number was provided for the patient. Differential Diagnosis Differential Diagnoses: The differential diagnosis associated with the presentation includes (Shoulder dislocation, fracture, clavicular fracture, contusion) Admission/Observation Consideration of admission/observation: Escalation of care including admission/observation considered (Given patient's initial x-rays, admission/observation/transfer was considered) Independent Interpretation I performed an independent interpretation of an: Plain X-Ray and CT Scan Radiology Impression Discussion of test interpretation with radiology: I have reviewed the radiologist's reading. Radiologist Impression: Heart size is normal, with no pericardial effusion Aorta diameter is normal Pulmonary artery diameter is unremarkable. Trachea and esophagus are unremarkable. Lymph nodes: No adenopathy Lungs: Clear. No pulmonary consolidations. No pleural fluid. No pneumothorax Pleura: No pleural effusion Skeletal: No fractures Below the diaphragm: Regional visceral organs are unremarkable. Gallbladder is surgically absent. Normal pelvis, no signs of skeletal trauma. Mildly displaced fracture of the distal tip of the clavicle with grade 3 AC separation. 2. Irregular upper surface of the scapula suspicious for scapular fracture. Consider CT or plain film scapular view. 3. Also, can not exclude a coracoid fracture although this may be image projection due to positioning. Critical Care Time Critical Care Time Critical Care Time: Yes Total Critical Care Time: 35 Attestation: I have personally provided critical care time. Time includes review of lab data, radiology results, discussion with consultants, and monitoring for potential decompensation. Intervention performed as documented. Discharge Plan Discharge Clinical Impression: Clavicle fracture Patient Disposition: Home, Self-Care Instructions: Clavicle Fracture (ED) Additional Instructions: Please follow-up with your primary care physician tomorrow. If you have any worsening or new symptoms, please return to the emergency room or call 911 Prescriptions: New tramadol 50 mg tablet 50 mg PO Q8H PRN (Reason: pain) Qty: 10 0RF ibuprofen 600 mg tablet 600 mg PO Q8H PRN (Reason: fever or pain) Qty: 30 0RF No Action insulin glargine [Lantus U-100 Insulin] 100 unit/mL solution 22 unit subcut BEDTIME gabapentin 100 mg capsule 2 cap PO BID levothyroxine 75 mcg tablet 1 tab PO DAILY@0600 omeprazole 20 mg capsule,delayed release(DR/EC) 1 cap PO DAILY@0630 montelukast 10 mg tablet 1 tab PO BEDTIME sertraline 50 mg tablet 1 tab PO DAILY rosuvastatin 40 mg tablet 1 tab PO DAILY olmesartan 20 mg Tablet 20 mg PO DAILY azithromycin 250 mg tablet See Rx Instructions .ROUTE .COMPLEX Qty: 6 0RF Rx Instructions: For 250 mg dose pack: take 500 mg today (day 1), then 250 mg for 4 days (days 2-5) prednisone 20 mg tablet 20 mg PO DAILY Qty: 4 0RF metformin 500 mg tablet 500 mg PO BIDWM quetiapine 200 mg tablet 200 mg PO BEDTIME cyanocobalamin (vitamin B-12) 1,000 mcg tablet 2,000 mcg PO DAILY aspirin 81 mg tablet,delayed release (DR/EC) 81 mg PO DAILY albuterol sulfate [Ventolin HFA] 90 mcg/actuation HFA aerosol inhaler 2 puff INHALATION Q6H PRN (Reason: Shortness Of Breath Or Wheezing) Trulicity 4.5 mg/0.5 mL pen injector 4.5 mg subcut FR@0900 insulin lispro 100 unit/mL insulin pen 1 sliding scale dose subcut TIDAC Metamucil 3.4 gram/5.4 gram powder 1 tbsp PO DAILY Qty: 660 0RF Rx Instructions: mix into at least 8 oz of water or juice before administering nicotine 21 mg/24 hr Patch 24 Hour 21 mg transdermal DAILY Qty: 30 0RF (DME) lancets [FreeStyle Lancets] 28 gauge misc See Rx Instructions .ROUTE .MEDSUPPLY Qty: 100 Rx Instructions: As directed (DME) blood-glucose meter [FreeStyle Lite Meter] Kit See Rx Instructions .ROUTE .MEDSUPPLY Qty: 1 Rx Instructions: As directed (DME) FreeStyle Lite Strips Strip See Rx Instructions .ROUTE .MEDSUPPLY Qty: 10 Rx Instructions: As directed Referrals: Nicci Cheung PA-C [Physician Computer Systems Technician, Orthopedics] Print Language: Burmese
--- OUTSIDE RECORDS SUMMARY | 2025-02-01 19:20 | XMS_ITS | Encounter Summary ---
Author Organization [employer] Address [address] [place] [address] Care Team Providers Care Official Court Interpreter Name Role Phone Marilu Reynoso NETWORK PRICING CONSULTANT Primary Care Provider Raissa To PharmD Unavailable [phone] Irina Barragan RN Unavailable [phone] Alexus Alvarez Unavailable Reason for Visit * Reason Onset Date Comments Appointment 10/21/2022 Encounter Details Date Type Department Care Team (Late st Contact Info) Description 10/21/2022 Telephone [facility] [address] [place], [place] [phone] Luiz Moody DDS [address], [place] [phone] Appointment Social History Tobacco Use Types Packs/Day [...] Description 02/08/2025 2:30 PM EDT Office Visit [facility] [address] [place] [address] Marilu Reynoso FNP [address] [place] [address] 02/15/2025 3:00 PM EDT Office Visit [facility] OPTOM[facility] [address] [place] [address] Edil, Ellyn, OD [address] [place] [address] 05/26/2025 1:00 PM EDT Office Visit [facility] [address] [place] [address] Santo, Marlee [address] [place] [address] documented as of this encounter Visit Diagnoses Not on filedocumented in this encounter Care Teams Official Court Interpreter Relationship Specialty Start Date End Date Marilu Reynoso FNP [address] [place] [address] PCP - General Family Medicine 01/02/22 Raissa To, Rafia [address] [place] [address] Pharmacist Internal Medicine 06/17/24 Irina Barragan, [place] [address] [place] [id number] Registered Nurse Family Medicine 01/02/25 Alexus Alvarez 01/02/25 Lisset Varner [employer] 04/08/24 07/08/24 documented as of this encounter
[2025-02-01 20:41] VITALS: BP 110/50; PULSE 80; RESP 16; TEMP 36.3; O2SAT 99
--- NOTE | 2025-02-01 22:43 | ED.FALL ---
HPI - Fall General Chief Complaint: Fall Stated Complaint: L shoulder/L thigh pain Time Seen by Provider: 02/01/25 22:34 Source: patient Related Data Home Medications ?Medication ?Instructions ?Recorded ?Confirmed blood sugar diagnostic (FreeStyle #10 ea 07/24/20 03/27/22 Lite Strips) blood-glucose meter (FreeStyle #1 ea 07/24/20 03/27/22 Lite Meter kit) lancets 28 gauge (FreeStyle #100 ea 07/24/20 03/27/22 Lancets) gabapentin 100 mg capsule 2 cap PO BID 01/13/22 07/02/24 insulin glargine 100 unit/mL 22 unit subcut BEDTIME 01/13/22 07/02/24 subcutaneous solution (Lantus U-100 Insulin) levothyroxine 75 mcg tablet 1 tab PO DAILY@0600 03/27/22 07/02/24 montelukast 10 mg tablet 1 tab PO BEDTIME 03/27/22 07/02/24 omeprazole 20 mg capsule,delayed 1 cap PO DAILY@0630 03/27/22 07/02/24 release rosuvastatin 40 mg tablet 1 tab PO DAILY 03/27/22 07/02/24 sertraline 50 mg tablet 1 tab PO DAILY 03/27/22 07/02/24 olmesartan 20 mg tablet 20 mg PO DAILY 03/28/22 07/02/24 albuterol sulfate 90 mcg/actuation 2 puff inhalation Q6H PRN 07/02/24 07/02/24 aerosol inhaler (Ventolin HFA) Shortness Of Breath Or Wheezing aspirin 81 mg tablet,delayed 81 mg PO DAILY 07/02/24 07/02/24 release cyanocobalamin (vitamin B-12) 2,000 mcg PO DAILY 07/02/24 07/02/24 1,000 mcg tablet dulaglutide 4.5 mg/0.5 mL 4.5 mg subcut FR@0907/02/24 07/02/24 subcutaneous pen injector (Trulicity) insulin lispro 100 unit/mL 1 sliding scale dose subcut TIDAC 07/02/24 07/02/24 subcutaneous pen metformin 500 mg tablet 500 mg PO BIDWM 07/02/24 07/02/24 quetiapine 200 mg tablet 200 mg PO BEDTIME 07/02/24 07/02/24 Previous Rx's ?Medication ?Instructions ?Recorded nicotine 21 mg/24 hr daily 21 mg transdermal DAILY #30 ea 07/05/24 transdermal patch psyllium husk 3.4 gram/5.4 gram 1 tbsp PO DAILY #660 grams 07/05/24 oral powder (Metamucil) azithromycin 250 mg tablet See Rx Instructions PO .COMPLEX #6 01/01/25 tabs prednisone 20 mg tablet 20 mg PO DAILY #4 tabs 01/01/25 Allergies Allergy/AdvReac Type Severity Reaction Status Date / Time lisinopril (LISINOPRIL) Allergy Unknown UNKNOWN Verified 02/01/25 18:22 Penicillins Allergy Unknown RASH Verified 02/01/25 18:22 sulfamethoxazole Allergy Unknown RASH Verified 02/01/25 18:22 trimethoprim Allergy Unknown RASH Verified 02/01/25 18:22 [facility] Past Medical History Medical History Smoking Other and unspecified hyperlipidemia Essential hypertension Type 2 diabetes mellitus with unspecified complications Palpitations Hypotension Anemia Migraine aura without headache Anxiety Depression Asthma Hyperlipidemia LDL goal <100 Vitamin D insufficiency Type 2 diabetes mellitus with hyperglycemia, with long-term current use of insulin Surgical History History of cholecystectomy Family History Family History Mother Diabetes Brother Diabetes Social History Social History Household Members: Family Housing: House Alcohol intake: current Alcohol intake frequency: holidays/special occasions only Alcohol type: beer and wine Patient Tobacco Use Status: Current everyday Tobacco user Tobacco use type: Cigarette Cigarette Packs Per Day: 0.3 Cigarettes Per Day: 6.0 e-Cigarette/Vaping Use: Never Used Advance Directives: Yes Advance Directives on File: Yes Advance Directives Date on File: 07/06/24 Do you have a plan to hurt others: No Plan service: No Current occupational status: unemployed Physical Exam Vital Signs: Vital Signs: Last Vital Signs Temp 97.4 F 02/01/25 20:41 Pulse 80 02/01/25 20:41 Resp 16 02/01/25 20:41 BP 110/50 L 02/01/25 20:41 Pulse Ox 99 02/01/25 20:41 O2 Del Method Room Air 02/01/25 20:41 BMI result Body Mass Index 38.0 Discharge Plan Discharge Prescriptions: No Action insulin glargine [Lantus U-100 Insulin] 100 unit/mL solution 22 unit subcut BEDTIME gabapentin 100 mg capsule 2 cap PO BID levothyroxine 75 mcg tablet 1 tab PO DAILY@0600 omeprazole 20 mg capsule,delayed release(DR/EC) 1 cap PO DAILY@0630 montelukast 10 mg tablet 1 tab PO BEDTIME sertraline 50 mg tablet 1 tab PO DAILY rosuvastatin 40 mg tablet 1 tab PO DAILY olmesartan 20 mg Tablet 20 mg PO DAILY azithromycin 250 mg tablet See Rx Instructions .ROUTE .COMPLEX Qty: 6 0RF Rx Instructions: For 250 mg dose pack: take 500 mg today (day 1), then 250 mg for 4 days (days 2-5) prednisone 20 mg tablet 20 mg PO DAILY Qty: 4 0RF metformin 500 mg tablet 500 mg PO BIDWM quetiapine 200 mg tablet 200 mg PO BEDTIME cyanocobalamin (vitamin B-12) 1,000 mcg tablet 2,000 mcg PO DAILY aspirin 81 mg tablet,delayed release (DR/EC) 81 mg PO DAILY albuterol sulfate [Ventolin HFA] 90 mcg/actuation HFA aerosol inhaler 2 puff INHALATION Q6H PRN (Reason: Shortness Of Breath Or Wheezing) Trulicity 4.5 mg/0.5 mL pen injector 4.5 mg subcut FR@0900 insulin lispro 100 unit/mL insulin pen 1 sliding scale dose subcut TIDAC Metamucil 3.4 gram/5.4 gram powder 1 tbsp PO DAILY Qty: 660 0RF Rx Instructions: mix into at least 8 oz of water or juice before administering nicotine 21 mg/24 hr Patch 24 Hour 21 mg transdermal DAILY Qty: 30 0RF (DME) lancets [FreeStyle Lancets] 28 gauge misc See Rx Instructions .ROUTE .MEDSUPPLY Qty: 100 Rx Instructions: As directed (DME) blood-glucose meter [FreeStyle Lite Meter] Kit See Rx Instructions .ROUTE .MEDSUPPLY Qty: 1 Rx Instructions: As directed (DME) FreeStyle Lite Strips Strip See Rx Instructions .ROUTE .MEDSUPPLY Qty: 10 Rx Instructions: As directed Print Language: Thai
[2025-02-01] MEDS: oxyCODONE HCl Immed Release 5 MG TABLET PO (22:53)
--- NOTE | 2025-02-01 22:55 | PC.NURSE ---
medicated per oct, notified [place] Aparicio
[2025-02-01 23:22] VITALS: BP 140/60; PULSE 80; RESP 16; TEMP 36.8; O2SAT 97
== END 2025-02-01 23:22 | disposition home or self-care (01) ==
PROVIDERS: Emergency Provider Emergency Medicine; PCP Registered Nurse
DX: S42.002A Fracture of unspecified part of left clavicle, initial encounter for closed fracture (principal); W10.8XXA Fall (on) (from) other stairs and steps, initial encounter; M25.512 Pain in left shoulder; J44.1 Chronic obstructive pulmonary disease with (acute) exacerbation; I10 Essential (primary) hypertension; E11.8 Type 2 diabetes mellitus with unspecified complications; E11.65 Type 2 diabetes mellitus with hyperglycemia; E55.9 Vitamin D deficiency, unspecified; Y93.39 Activity, other involving climbing, rappelling and jumping off; Y92.9 Unspecified place or not applicable; Y99.9 Unspecified external cause status
CPT/HCPCS: 71250; 72170; 73000; 73030; 99284; 99291

== ENCOUNTER → 2025-02-01 18:21 | Outpatient (BNV) | payer MEDICAID, SELFPAY | PROVIDERS: PCP Registered Nurse; Visit Provider Radiology Diagnostic Radiology | DX: R06.00 Dyspnea, unspecified (principal); S42.002A Fracture of unspecified part of left clavicle, initial encounter for closed fracture; M79.652 Pain in left thigh | CPT/HCPCS: 71250; 72170; 73000; 73030 ==

== ENCOUNTER 2025-02-21 13:55 | Outpatient (AMB) | payer MEDICAID, SELFPAY ==
--- NOTE | 2025-02-21 14:04 | MHC.OFFVIS ---
Vital Signs 02/21/25 14:11 Height 5 ft Weight 194 lb BMI 37.9 Intake Visit Reasons: FX-Scapular and displaced clavicle reviewed w/ NE Intake Note: Shannon is a 54 year old female who presents today for an ER follow up of left scapular and clavicle fracture, DOI 01/29/25. Patient presented to [facility] ER 3 days after a fall on her left shoulder, x-rays and CT scan were obtained and was referred to orthopedics. Patient reports ongoing pain and discomfort making it difficult to sleep at night. Her pain radiates down her arm from her shoulder. No numbness or tingling. She also complains of pain in her left hip in her groin area. Allergies lisinopril (LISINOPRIL) Allergy (Unknown, Verified 02/21/25 14:14) UNKNOWN Penicillins Allergy (Unknown, Verified 02/21/25 14:14) RASH sulfamethoxazole Allergy (Unknown, Verified 02/21/25 14:14) RASH trimethoprim Allergy (Unknown, Verified 02/21/25 14:14) RASH Medication List - Last Reconciled 02/21/25 by Eilzabeth Bowles PA-C albuterol sulfate 90 mcg/actuation (Ventolin HFA) 2 puffs inhalation Q6H PRN aspirin 81 mg PO DAILY blood sugar diagnostic (FreeStyle Lite Strips) As directed blood-glucose meter (FreeStyle Lite Meter kit) As directed cyanocobalamin (vitamin B-12) 2,000 mcg PO DAILY dulaglutide (Trulicity) 4.5 mg subcut FR@0900 gabapentin 2 caps PO BID hydroxyzine pamoate 25 mg PO ibuprofen 600 mg PO Q8H PRN insulin glargine (Lantus U-100 Insulin) 22 units subcut BEDTIME insulin lispro 1 sliding scale dose subcut TIDAC lancets (FreeStyle Lancets) As directed levothyroxine 1 tab PO DAILY@0600 metformin 500 mg PO BIDWM montelukast 1 tab PO BEDTIME nicotine 21 mg transdermal DAILY olmesartan 20 mg PO DAILY omeprazole 1 cap PO DAILY@0630 psyllium husk (Metamucil) 1 tbsp PO DAILY quetiapine 200 mg PO BEDTIME rosuvastatin 1 tab PO DAILY sertraline 1 tab PO DAILY HPI HPI FX-Scapular and displaced clavicle reviewed w/ NE: Details: 54-year-old female presents to the office today accompanied by her daughter for an injury she sustained to her left scapula and clavicle region. On 01/16/2018 she fell down the stairs and was seen in the emergency department where imaging studies were performed. She was referred to our office for ortho eval. She states she continues to have discomfort along the scapular region and has pain with activities such as raising the arm and trying to clean. [facility] Medical History Smoking Other and unspecified hyperlipidemia Essential hypertension Type 2 diabetes mellitus with unspecified complications Palpitations Hypotension Anemia Migraine aura without headache Anxiety Depression Asthma Hyperlipidemia LDL goal <100 Vitamin D insufficiency Type 2 diabetes mellitus with hyperglycemia, with long-term current use of insulin Surgical History History of cholecystectomy Family History Mother Diabetes Brother Diabetes Social History (Updated 02/21/25 @ 14:15 by JOSÉ MIGUEL Jaramillo) Household Members: Family Housing: House Alcohol intake: current Alcohol intake frequency: does not drink Alcohol type: beer and wine Patient Tobacco Use Status: Current everyday Tobacco user Tobacco use type: Cigarette Cigarette Packs Per Day: 0.3 Cigarettes Per Day: 6.0 e-Cigarette/Vaping Use: Never Used Advance Directives Date on File: 07/06/24 service: No Current occupational status: unemployed Current occupation: right hand dominant Review of Systems Const All systems reviewed & are unremarkable except as noted in HPI and below Physical Exam Vital Signs: BMI result Body Mass Index 37.9 Const General: cooperative and no acute distress Orientation/consciousness: patient oriented x3 Resp Effort & Inspection: normal respiratory effort and able to speak in complete sentences Cardio Peripheral pulses: Peripheral pulses 2+ throughout Neuro General: patient oriented x3 Extrem Other: Left shoulder normal to inspection she has limited range of motion with forward flexion to 85 degrees. Neurovascularly intact. Office Procedures AMB Fracture Care Fracture Billing Code: Fracture Billing Code Results Reviewed Results Reviewed: Left shoulder 02/01/25 Impression: 1. Mildly displaced fracture of the distal tip of the clavicle with grade 3 AC separation. 2. Irregular upper surface of the scapula suspicious for scapular fracture. Consider CT or plain film scapular view. 3. Also, can not exclude a coracoid fracture although this may be image projection due to positioning. Assessment & Plan Assessment & Plan (1) Left scapula fracture: Code(s): S42.102A - Fracture of unspecified part of scapula, left shoulder, initial encounter for closed fracture Category: Medical Plan: An order for physical therapy was placed to work on gentle range of motion and scapular stabilization. There will be no use of weight. She should avoid any type of overhead reaching pushing pulling or carrying with the left upper extremity. She will see me back in 8 weeks with x-rays sooner if needed. Orders: Orders PT Evaluation and Treatment Today S42.102A - Fracture of unspecified part of scapula, left shoulder, initial encounter for closed fracture Coding Level of Care Code New Pt Level 3 (04371) Complex EM visit Add On G2211 Diagnoses Left scapula fracture S42.102A CPT Codes Fracture Care - Fracture Billing Code: Fracture Billing Code ([id number])
[2025-02-21 14:11] VITALS: BMI 37.9
--- OUTSIDE RECORDS SUMMARY | 2025-02-21 14:45 | XMS_ITS | Encounter Summary ---
Author Organization [employer] Address [address] [place] [address] Care Team Providers Care Icer Machine Name Role Phone Marilu Reynoso RADIOLOGY TRANSCRIPTIONIST Primary Care Provider Raissa To PharmD Unavailable [phone] Irina Barragan RN Unavailable [phone] Alexus Alvarez Unavailable Reason for Visit * Reason Onset Date Comments Appointment 10/21/2022 Encounter Details Date Type Department Care Team (Late st Contact Info) Description 10/21/2022 Telephone [facility] [address], [place] [phone] Luiz Moody DDS [address], [place] [phone] Appointment Social History Tobacco Use Types Packs/Day [...] Care Team (Late st Contact Info) Description 02/24/2025 1:00 PM EDT Medication Management [facility] [address] [place] [address] Raissa To PharmD [address] [place] [address] 05/26/2025 1:00 PM EDT Office Visit [facility] [address] [place] [address] Santo, Marlee [address] [place] [address] documented as of this encounter Visit Diagnoses Not on filedocumented in this encounter Care Teams Icer Machine Relationship Specialty Start Date End Date Marilu Reynoso FNP [address] [place] [address] PCP - General Family Medicine 01/02/22 Raissa To PharmD [address] [place] [address] Pharmacist Internal Medicine 06/17/24 Irina Barragan, [place] [address] [place] [address] Registered Nurse Family Medicine 01/02/25 Alexus Alvarez 01/02/25 Lisset Varner Spice Grinder 04/08/24 07/08/24 documented as of this encounter
== END 2025-02-21 14:46 | disposition home or self-care (01) ==
LOC: HO.HOS 13:56
PROVIDERS: PCP Registered Nurse; Visit Provider Physician Assistant
DX: S42.102A Fracture of unspecified part of scapula, left shoulder, initial encounter for closed fracture (principal)
CPT/HCPCS: 99203

== ENCOUNTER → 2025-02-21 13:55 | Outpatient (BNVA) | payer MEDICAID, SELFPAY | PROVIDERS: PCP Registered Nurse; Visit Provider Physician Assistant | DX: M25.512 Pain in left shoulder (principal); M25.552 Pain in left hip; S42.102A Fracture of unspecified part of scapula, left shoulder, initial encounter for closed fracture | CPT/HCPCS: 99212 ==

== ENCOUNTER 2025-03-13 19:58 | Emergency (ER) | payer MEDICAID, SELFPAY ==
--- NOTE | ~2025-03-13 | XR_ITS ---
CLINICAL HISTORY: cough with sputum production 2 view chest x-ray Comparison: CT/SR - CT CHEST WO IV CON - 02/01/25 19:01 EDT Findings: The lungs are clear. Heart size is normal. No acute fracture. IMPRESSION: 1. No acute findings. This document has been electronically signed by: Hugo Galvez MD on 03/14/2025 02:56:24
--- NOTE | ~2025-03-13 | XR_ITS ---
CLINICAL HISTORY: pain after fall Four views of the left knee. COMPARISON: None provided. FINDINGS: No suprapatellar joint effusion. Joint spaces are maintained. Small osteophytes present along the medial and lateral compartments. Visualized portions of the distal femur, patella, and proximal tibia and fibula appear intact. IMPRESSION: 1. No radiographic evidence of acute injury to the left knee. This document has been electronically signed by: Candelario Rojo MD on 03/13/2025 20:48:22
[2025-03-13 20:14] VITALS: BP 161/64; PULSE 84; RESP 18; TEMP 36.7; O2SAT 97; BMI 38.4
--- NOTE | 2025-03-13 20:14 | ED.GENADULT ---
HPI - General Adult General Chief complaint: General Medical Stated complaint: asthma,diarrhea,headache Time Seen by Provider: 03/14/25 00:53 Source: patient and family Mode of arrival: ambulatory Limitations: language barrier History of Present Illness ED Provider: Dr. Rosibel Sales HPI narrative: 54-year-old female with extensive past medical history including insulin-dependent diabetes, hypertension, COPD, continued tobacco use presenting with shortness of breath, cough productive of green sputum, multiple other complaints including knee pain and shoulder pain that is chronic in nature. Her shortness of breath and cough have been ongoing for about a week now. Describes continued asthma exacerbations where she feels she can not breathe, particularly with exertion despite the use of her inhalers. Was on steroids about a month ago but has been off of them since. Denies chest pain, abdominal pain, nausea or vomiting, bowel changes or urinary complaints. Left knee is not significantly swollen or red. No known sick contacts or travel. Related Data Home Medications ?Medication ?Instructions ?Recorded ?Confirmed blood sugar diagnostic (FreeStyle #10 ea 07/24/20 03/27/22 Lite Strips) blood-glucose meter (FreeStyle #1 ea 07/24/20 03/27/22 Lite Meter kit) lancets 28 gauge (FreeStyle #100 ea 07/24/20 03/27/22 Lancets) gabapentin 100 mg capsule 2 cap PO BID 01/13/22 02/21/25 insulin glargine 100 unit/mL 22 unit subcut BEDTIME 01/13/22 02/21/25 subcutaneous solution (Lantus U-100 Insulin) levothyroxine 75 mcg tablet 1 tab PO DAILY@0600 03/27/22 02/21/25 montelukast 10 mg tablet 1 tab PO BEDTIME 03/27/22 02/21/25 omeprazole 20 mg capsule,delayed 1 cap PO DAILY@0630 03/27/22 02/21/25 release rosuvastatin 40 mg tablet 1 tab PO DAILY 03/27/22 02/21/25 sertraline 50 mg tablet 1 tab PO DAILY 03/27/22 02/21/25 olmesartan 20 mg tablet 20 mg PO DAILY 03/28/22 07/02/24 albuterol sulfate 90 mcg/actuation 2 puff inhalation Q6H PRN 07/02/24 02/21/25 aerosol inhaler (Ventolin HFA) Shortness Of Breath Or Wheezing aspirin 81 mg tablet,delayed 81 mg PO DAILY 07/02/24 02/21/25 release cyanocobalamin (vitamin B-12) 2,000 mcg PO DAILY 07/02/24 02/21/25 1,000 mcg tablet dulaglutide 4.5 mg/0.5 mL 4.5 mg subcut FR@0900 07/02/24 02/21/25 subcutaneous pen injector (Trulicity) insulin lispro 100 unit/mL 1 sliding scale dose subcut TIDAC 07/02/24 07/02/24 subcutaneous pen metformin 500 mg tablet 500 mg PO BIDWM 07/02/24 02/21/25 quetiapine 200 mg tablet 200 mg PO BEDTIME 07/02/24 02/21/25 hydroxyzine pamoate 25 mg capsule 25 mg PO anxiety 02/21/25 02/21/25 Previous Rx's ?Medication ?Instructions ?Recorded nicotine 21 mg/24 hr daily 21 mg transdermal DAILY #30 ea 07/05/24 transdermal patch psyllium husk 3.4 gram/5.4 gram 1 tbsp PO DAILY #660 grams 07/05/24 oral powder (Metamucil) ibuprofen 600 mg tablet 600 mg PO Q8H PRN fever or pain 02/01/25 #30 tabs prednisone 50 mg tablet 50 mg PO DAILY 5 days #5 tabs 03/14/25 Allergies Allergy/AdvReac Type Severity Reaction Status Date / Time lisinopril (LISINOPRIL) Allergy Unknown UNKNOWN Verified 03/13/25 20:18 Penicillins Allergy Unknown RASH Verified 03/13/25 20:18 sulfamethoxazole Allergy Unknown RASH Verified 03/13/25 20:18 trimethoprim Allergy Unknown RASH Verified 03/13/25 20:18 Review of Systems Review of Systems: as per HPI, full review of systems performed and negative but for the above mentioned pertinent positives and negatives. ON LICENSE OF [facility] Past Medical History ON LICENSE OF [facility] Narrative: insulin-dependent diabetes, hypertension, asthma/COPD, continued tobacco use Source: old records reviewed Medical History Smoking Other and unspecified hyperlipidemia Essential hypertension Type 2 diabetes mellitus with unspecified complications Palpitations Hypotension Anemia Migraine aura without headache Anxiety Depression Asthma Hyperlipidemia LDL goal <100 Vitamin D insufficiency Type 2 diabetes mellitus with hyperglycemia, with long-term current use of insulin Surgical History History of cholecystectomy Family History Family History Mother Diabetes Brother Diabetes Social History Social History Household Members: Family Housing: House Alcohol intake: current Alcohol intake frequency: does not drink Alcohol type: beer and wine Patient Tobacco Use Status: Current everyday Tobacco user Tobacco use type: Cigarette Cigarette Packs Per Day: 0.3 Cigarettes Per Day: 6.0 e-Cigarette/Vaping Use: Never Used Advance Directives Date on File: 07/06/24 service: No Current occupational status: unemployed Current occupation: right hand dominant Physical Exam ED Exam Exam: GENERAL: Ill-appearing, mild respiratory distress. SKIN: Normal skin color for ethnicity, warm, dry, no rashes noted. HEENT: Normocephalic, atraumatic, no stridor, EOMI. NECK: Soft, supple, full ROM, midline structures nontender, no step-offs, no deformities, no lymphadenopathy. CHEST: Heart regular tachycardia, symmetric chest rise and fall. PULMONARY: Diffuse wheezes throughout, tachypnea, limited air movement bilaterally, mild respiratory distress. ABDOMINAL: Soft, nontender, quiet bowel sounds in all quadrants. : Deferred. MUSCULOSKELETAL: Normal tone, full range of motion, no deformities, no peripheral edema, left knee tenderness to palpation, neurovascularly intact distally, no palpable joint effusion. NEURO: Alert and oriented to person, CN II through XII intact, no focal neurologic deficits. PSYCHIATRIC: Anxious affect, appropriate demeanor. Vital Signs: Vital Signs - 24 hr 03/13/25 20:14 03/14/25 01:19 03/14/25 01:58 Temperature 98.1 F 98.1 F Pulse Rate 84 79 77 Respiratory Rate 18 18 18 Blood Pressure 161/64 H 135/50 L Pulse Oximetry 97 98 Oxygen Delivery Method Room Air Room Air 03/14/25 03:39 Temperature 97.6 F Pulse Rate 85 Respiratory Rate 16 Blood Pressure 134/52 L Pulse Oximetry 98 Oxygen Delivery Method Room Air BMI result Body Mass Index 38.4 Course Course Course Narrative: This is a rapid medical exam performed by Anderson Chen NP: Additional HPI, ROS, PE not included below will be deferred to primary provider. Patient is a 54-year-old female with history of T2DM,HLD, COPD, HTN presenting with complaint of shortness of breath for a few days, also states that she fell onto her left knee, is having pain there. Using inhaler with little relief. Subjective fevers. Also complains of generalized itching everywhere. Plan: viral swabs, knee x-ray Medications Administered Discontinued Medications Generic Name Dose Route Start Last Admin Trade Name Alexandro PRN Reason Stop Dose Admin Acetaminophen 650 mg 03/14/25 02:45 03/14/25 03:05 Acetaminophen 325 Mg Tablet PO 03/14/25 02:46 650 mg ONCE ONE Administration Albuterol Sulfate 2.5 mg/ 0 mg 03/14/25 01:51 03/14/25 01:57 Albuterol/Ipratropium 3 ml INHALE 03/14/25 01:52 1 dose ONCE ONE Administration Ibuprofen 600 mg 03/14/25 02:45 03/14/25 03:05 Ibuprofen 600 Mg Tablet PO 03/14/25 02:46 600 mg ONCE ONE Administration Prednisone 60 mg 03/14/25 01:46 03/14/25 02:39 Prednisone 20 Mg Tablet PO 03/14/25 01:47 60 mg ONCE ONE Administration Medical Decision Making Medical Decision Making MDM Narrative: Patient presents today with chief complaint of shortness of breath. Differential diagnosis includes, but is not limited to, upper respiratory infection, pneumonia, COPD exacerbation, asthma exacerbation, CHF, pneumothorax, pleural effusion, pulmonary embolism, ACS. Broad-based work-up will be initiated to evaluate for etiology of patient's symptoms. 1:50 AM 03/14/2025 (Dr. Rosibel Sales, D.O.) Clinical picture consistent with asthma exacerbation though she has had subjective fevers and green sputum production. Will add on a chest x-ray to evaluate this further. She has no elevated white blood cell count, no other signs or symptoms of sepsis at this time. We will give her a breathing treatment and steroids. We discussed use of steroids and increases in blood sugar that would occur. She does have hyperglycemia and is aware that her blood sugars are rather poorly controlled. 5:50 AM 03/14/2025 (Dr. Rosibel Sales, D.O.) Patient significantly improved after treatment. We had an extensive discussion regarding importance of follow-up with primary care as well as strict return precautions. She is at this point requesting discharge home. Provided with prescription for steroids and educated extensively regarding increase in blood sugar. We had a long talk about avoiding sugary foods. Plan will be to discharge home, follow-up with primary care as an outpatient. Differential Diagnosis Differential Diagnoses: The differential diagnosis associated with the presentation includes (As above) Admission/Observation Consideration of admission/observation: Escalation of care including admission/observation considered Lab Data MDM Lab Attestation statement: I reviewed the patient's lab results. 03/13/25 20:49 03/13/25 20:49 Labs: Lab Results 03/13/25 Range/Units 20:49 WBC 10.0 (4.8-10.8) X10*3/uL RBC 4.30 (4.20-5.50) X10*6/uL Hgb 12.3 (12.0-16.0) g/dl Hct 34.9 L (37.0-47.0) % MCV 81.2 (80.0-98.0) fL MCH 28.6 (27.0-33.0) pg MCHC 35.2 H (31.0-35.0) g/dl RDW 13.0 (11.0-16.0) % Plt Count 259 D (160-400) X10*3/uL MPV 10.9 (9.4-12.3) fL Immature Gran % (Auto) 0.4 (0.0-0.4) % Neut % (Auto) 73.6 H (45-73) % Lymph % (Auto) 19.7 L (20-40) % [place] % (Auto) 4.9 (2-11) % Eos % (Auto) 1.0 (0-4) % Baso % (Auto) 0.4 (0-2) % Lymph # (Auto) 2.0 (1.2-4.9) X10*3/uL [place] # (Auto) 0.5 (0.1-1.2) X10*3/uL Eos # (Auto) 0.1 (0.0-0.4) X10*3/uL Baso # (Auto) 0.0 (0.0-0.2) X10*3/uL Abs Immat Gran (auto) 0.04 H (0.00-0.03) X10*3/uL Absolute Neuts (auto) 7.4 (2.0-8.3) x10*3/uL Absolute Nucleated RBC 0.000 (0.0-0.012) X10*3/uL Nucleated RBC % (auto) 0.0 (0.0-0.2) /100WBC Sodium 138 (135-145) mmol/L Potassium 4.0 (3.3-5.1) mmol/L Chloride 105 (96-108) mmol/L Carbon Dioxide 21 L (22-29) mmol/L Anion Gap 16 (12-20) BUN 11 (9-16) mg/dL Creatinine 1.09 (0.5-1.4) mg/dL Estim Creat Clear Calc 58.7 Estimated GFR 52 Random Glucose 340 H (60-115) mg/dL Calcium 9.2 (8.4-10.2) mg/dL Total Bilirubin 0.3 (0.0-1.0) mg/dL AST 19 (5-31) U/L ALT 16 (0-31) U/L Alkaline Phosphatase 108 (39-117) U/L Total Protein 8.3 H (6.5-8.0) g/dL Albumin 4.8 (3.5-5.0) g/dL Influenza Type A (PCR) NEGATIVE (Negative) Influenza Type B (PCR) NEGATIVE (Negative) RSV RNA Qual (PCR) NEGATIVE (Negative) SARS-CoV-2 RNA (RT-PCR) NEGATIVE (Negative) Independent Historian Clinical information obtained from an independent historian. History obtained from or confirmed by: Other (Daughter) Prescription Management I considered prescription management with: Antibiotic and Other (Steroids) Chronic Conditions Patient?s care impacted by: Diabetes, Hypertension and Other (COPD) Discharge Plan Discharge Clinical Impression: Asthma exacerbation in COPD, Poorly controlled diabetes mellitus, Chronic pain of left knee Patient Disposition: Home, Self-Care Instructions: Knee Pain (ED), Diabetic Hyperglycemia (ED), Wheezing (ED) Additional Instructions: Be aware that your blood sugar will go up while you are on steroids. Be sure to keep close eye on your blood sugars while you are taking prednisone. Follow-up with your primary care doctor as soon as possible. You may be able to combine some of your medications but need to talk to the doctor that prescribes them. Return to the ER with any new or worsening symptoms including: Worsening chest pain, difficulty breathing, fevers greater than 100?, any new symptom that concerns you. Call 911 with any medical emergency. Prescriptions: New prednisone 50 mg tablet 50 mg PO DAILY 5 Days Qty: 5 0RF No Action insulin glargine [Lantus U-100 Insulin] 100 unit/mL solution 22 unit subcut BEDTIME gabapentin 100 mg capsule 2 cap PO BID levothyroxine 75 mcg tablet 1 tab PO DAILY@0600 omeprazole 20 mg capsule,delayed release(DR/EC) 1 cap PO DAILY@0630 montelukast 10 mg tablet 1 tab PO BEDTIME sertraline 50 mg tablet 1 tab PO DAILY rosuvastatin 40 mg tablet 1 tab PO DAILY olmesartan 20 mg Tablet 20 mg PO DAILY metformin 500 mg tablet 500 mg PO BIDWM quetiapine 200 mg tablet 200 mg PO BEDTIME cyanocobalamin (vitamin B-12) 1,000 mcg tablet 2,000 mcg PO DAILY aspirin 81 mg tablet,delayed release (DR/EC) 81 mg PO DAILY albuterol sulfate [Ventolin HFA] 90 mcg/actuation HFA aerosol inhaler 2 puff INHALATION Q6H PRN (Reason: Shortness Of Breath Or Wheezing) Trulicity 4.5 mg/0.5 mL pen injector 4.5 mg subcut FR@0900 insulin lispro 100 unit/mL insulin pen 1 sliding scale dose subcut TIDAC Metamucil 3.4 gram/5.4 gram powder 1 tbsp PO DAILY Qty: 660 0RF Rx Instructions: mix into at least 8 oz of water or juice before administering nicotine 21 mg/24 hr Patch 24 Hour 21 mg transdermal DAILY Qty: 30 0RF ibuprofen 600 mg tablet 600 mg PO Q8H PRN (Reason: fever or pain) Qty: 30 0RF (DME) lancets [FreeStyle Lancets] 28 gauge misc See Rx Instructions .ROUTE .MEDSUPPLY Qty: 100 Rx Instructions: As directed (DME) blood-glucose meter [FreeStyle Lite Meter] Kit See Rx Instructions .ROUTE .MEDSUPPLY Qty: 1 Rx Instructions: As directed (DME) FreeStyle Lite Strips Strip See Rx Instructions .ROUTE .MEDSUPPLY Qty: 10 Rx Instructions: As directed hydroxyzine pamoate 25 mg capsule 25 mg PO Interventions: ED Discharge Assessment Last Done: 03/14/25 06:50 Discharge Date/Time: 03/14/25 06:52 Print Language: Japanese
[2025-03-13 21:01] LABS: MANUAL DIFF FLAG NO
[2025-03-13 21:02] LABS: Hematocrit 34.9 % (37.0-47.0); Hemoglobin 12.3 g/dl (12.0-16.0); Imm Gran Abs Auto 0.04 X10*3/uL (0.00-0.03); Imm Gran Pct Auto 0.4 % (0.0-0.4); Lymphocytes Absolute Auto 2.0 X10*3/uL (1.2-4.9); Mean Corpuscular HGB Conc 35.2 g/dl (31.0-35.0); Mean Corpuscular Hemoglobin 28.6 pg (27.0-33.0); Mean Corpuscular Volume 81.2 fL (80.0-98.0); NRBC Abs Auto 0.000 X10*3/uL (0.0-0.012); NRBC Pct Auto 0.0 /100WBC (0.0-0.2); Platelet Count 259 X10*3/uL (160-400); Red Blood Count 4.30 X10*6/uL (4.20-5.50); White Blood Count 10.0 X10*3/uL (4.8-10.8)
[2025-03-13 21:21] LABS: Alanine Aminotransferase 16 U/L (0-31); Albumin Level 4.8 g/dL (3.5-5.0); Alkaline Phosphatase 108 U/L (39-117); Anion Gap 16 (12-20); Aspartate Amino Transferase 19 U/L (5-31); Blood Urea Nitrogen 11 mg/dL (9-16); Calcium 9.2 mg/dL (8.4-10.2); Carbon Dioxide 21 mmol/L (22-29); Chloride 105 mmol/L (96-108); Creatinine Clr Calc Pharmacy 58.7; Estimated Glomerular Filt Rate 52; Potassium 4.0 mmol/L (3.3-5.1); Sodium 138 mmol/L (135-145); Total Protein 8.3 g/dL (6.5-8.0)
[2025-03-13 21:40] LABS: Resp Syncy Virus RNA Qual PCR NEGATIVE (Negative); SARS COV2 PCR INHOUSE NEGATIVE (Negative)
[2025-03-14 01:19] VITALS: BP 135/50; PULSE 79; RESP 18; TEMP 36.7; O2SAT 98
[2025-03-14] MEDS: Albuterol Sulfate 2.5 MG, Albuterol/Iprat 2.5/0.5MG 3 ML 3 ML INHALE (01:57)
[2025-03-14 01:58] VITALS: PULSE 77; RESP 18; O2SAT 98
[2025-03-14 03:39] VITALS: BP 134/52; PULSE 85; RESP 16; TEMP 36.4; O2SAT 98
[2025-03-14 06:50] VITALS: BP 134/52; PULSE 85; RESP 16; TEMP 36.4; O2SAT 98
== END 2025-03-14 06:52 | disposition home or self-care (01) ==
PROVIDERS: Registered Nurse Emergency; Emergency Provider Emergency Medicine; PCP Registered Nurse
DX: J45.901 Unspecified asthma with (acute) exacerbation (principal); E11.65 Type 2 diabetes mellitus with hyperglycemia; G89.29 Other chronic pain; M25.562 Pain in left knee; R06.02 Shortness of breath; R05.9 Cough, unspecified; I10 Essential (primary) hypertension; E78.5 Hyperlipidemia, unspecified; Z03.818 Encounter for observation for suspected exposure to other biological agents ruled out; F17.210 Nicotine dependence, cigarettes, uncomplicated; Z79.4 Long term (current) use of insulin; Z79.899 Other long term (current) drug therapy; Z79.02 Long term (current) use of antithrombotics/antiplatelets; Z79.82 Long term (current) use of aspirin
CPT/HCPCS: 36415; 71046; 73564; 80053; 85025; 87637; 94640; 99284

== ENCOUNTER → 2025-03-13 20:17 | Outpatient (BNV) | payer MEDICAID, SELFPAY | PROVIDERS: PCP Registered Nurse; Visit Provider Radiology Diagnostic Radiology | DX: M25.562 Pain in left knee (principal); W19.XXXA Unspecified fall, initial encounter | CPT/HCPCS: 73564 ==

== ENCOUNTER → 2025-03-14 01:40 | Outpatient (BNV) | payer MEDICAID, SELFPAY | PROVIDERS: Emergency Provider Emergency Medicine; PCP Registered Nurse; Visit Provider Radiology Diagnostic Radiology | DX: R05.9 Cough, unspecified (principal) | CPT/HCPCS: 71046 ==

== ENCOUNTER 2025-05-04 09:41 | Outpatient (REF) | payer MEDICAID, SELFPAY ==
--- NOTE | ~2025-05-04 | XR_ITS ---
EXAMINATION: XR SCAPULA, LEFT CLINICAL INFORMATION: S42.142A - Displaced fracture of glenoid cavity of scapula, left shoulde... COMPARISON: February 01, 2025 TECHNIQUE: AP and Y-view projections of the left scapula. FINDINGS: There is a well-corticated the fracture at the base of the coracoid process of the left scapula. There are glenohumeral joint is well aligned. There is an 8 mm gap at the left acromioclavicular joint with upward position of the clavicle. XR/XR scapula LT IMPRESSION: Fracture at the base of the coracoid process, left scapula. Upward subluxation, left acromioclavicular joint. Electronically signed by: Agusto Hines MD 05/04/2025 02:49 PM EDT
--- OUTSIDE RECORDS SUMMARY | 2025-05-05 10:18 | XMS_ITS | Encounter Summary ---
Author Organization [employer] Address [address] [facility] 7t [place] [address] Care Team Providers Care Housekeeper [facility] Name Role Phone [facility] Primary Care Provider [phone] Raissa To PharmD Unavailable [phone] Irina Barragan RN Unavailable [phone] Alexus Alvarez Unavailable Dariela Alvarez RN Unavailable [phone] Reason for Visit * Reason Onset Date Comments Results 11/09/2024 Encounter Details Date Type Department Care Team ([facility] st Contact Info) Description 11/09/2024 Telephone [facility] [address] [place], [place] [phone] [place] [facility] [address] [place], [place] [phone] Results Social History Tobacco Use Types Packs/Day [...] Care Team (Late st Contact Info) Description 05/17/2025 2:00 PM EDT Office Visit [facility] [address] [place] [address] Marilu Reynoso FNP [address] [place] [address] 05/26/2025 12:45 PM EDT Office Visit [facility] ADULT DENTAL [address] [place] [address] Marlee Blanchard [address] [place] [address] 06/02/2025 2:30 PM EDT Medication Management [facility] [address] [place] [address] Raissa To, PharmJesus [address] [place] [address] documented as of this encounter Visit Diagnoses Not on filedocumented in this encounter Additional Health Concerns Assessment Noted Time PHQ-9 Depression Total Score: 9 07/18/20 24 1:40 PM EST documented as of this encounter Care Teams Housekeeper [facility] Relationship Specialty Start Date End Date [place] FNP [address] [place] [address] PCP - General Family Medicine 01/02/22 Raissa To, Rafia [address] [place] [address] [phone] Pharmacist Internal Medicine 06/17/24 Irina Barragan RN [address] [place] [address] Registered Nurse Family Medicine 01/02/25 04/24/25 Alexus Alvarez 01/02/25 Dariela Alvarez, GERMANIA [address] [place] [address] Registered Nurse Family Medicine 04/24/25 documented as of this encounter
--- OUTSIDE RECORDS SUMMARY | 2025-05-05 10:18 | XMS_ITS | Encounter Summary ---
Author Organization [employer] Address [address] [facility] 7t [place] [address] Care Team Providers Care Eviction Specialist Name Role Phone [facility] Primary Care Provider [phone] Raissa To PharmD Unavailable [phone] Irina Barragan RN Unavailable [phone] Alexus Alvarez Unavailable Dariela Alvarez RN Unavailable [phone] Reason for Visit * Reason Comments Med Refill Encounter Details Date Type Department Care Team (Late st Contact Info) Description 01/20/2024 Refill [facility] [address] [place], [place] [phone] [place] [facility] [address] [place], [place] [phone] Thoracic back pain, unspecified back pain laterality, [...] Description 05/17/2025 2:00 PM EDT Office Visit [facility] MED[facility]INE [address] [place] [address] [address] 05/26/2025 12:45 PM EDT Office Visit [facility] ADULT DENTAL [address] [place] [address] Santo, Marlee [address] [place] [address] 06/02/2025 2:30 PM EDT Medication Management [facility] [address] [place] [address] Raissa To, PharmD [address] [place] [address] documented as of this encounter Visit Diagnoses Diagnosis Thoracic back pain, unspecified back pain laterality, unspecified chronicity documented in this encounter Additional Health Concerns Assessment Noted Time PHQ-9 Depression Total Score: 16 023 12:28 PM EST documented as of this encounter Care Teams Eviction Specialist Relationship Specialty Start Date End Date Marilu Reynoso FNP [address] [place] [address] PCP - General Family Medicine 01/02/22 Raissa To, Rafia [address] [place] [address] Pharmacist Internal Medicine 06/17/24 Irian Barragan RN [address] [place], [place] [phone] Registered Nurse Family Medicine 01/02/25 04/24/25 Alexus Alvarez 01/02/25 Dariela Alvarez, GERMANIA [address] [place], [place] [phone] Registered Nurse Family Medicine 04/24/25 Lisset Varner Resident Assistant 04/08/24 07/08/24 documented as of this encounter
--- OUTSIDE RECORDS SUMMARY | 2025-05-05 10:18 | XMS_ITS | Encounter Summary ---
Author Organization [employer] Address [address] [facility] 7t [place] [address] Care Team Providers Care Commissioning Specialist Name Role Phone [place] [facility] Primary Care Provider [phone] Raissa To PharmD Unavailable [phone] Irina Barragan RN Unavailable [phone] Alexus Alvarez Unavailable Dariela Alvarez RN Unavailable [phone] Encounter Details Date Type Department Care Team (Late st Contact Info) Description 06/10/2023 Abstract [facility] [address] [place], [place] [phone] [facility] 230 [place], [place] [phone] Social History Tobacco Use Types Packs/Day Years [...] the past 12 months, has t he [employer], gas, oil or water [employer] [facility] threatened to shut off services in your [...] Description 05/17/2025 2:00 PM EDT Office Visit [facility] [address] [place] [address] [place]on[place] FNP 230 [place] [address] 05/26/2025 12:45 PM EDT Office Visit [facility] ADULT DENTAL [address] [place] [address] Santo, Marlee [address] [place] [address] 06/02/2025 2:30 PM EDT Medication Management [facility] [address] [place] [address] Raissa To, PharmD [address] [place] [address] documented as of this encounter Visit Diagnoses Not on filedocumented in this encounter Additional Health Concerns Assessment Noted Time PHQ-9 Depression Total Score: 16 023 1:53 PM EDT documented as of this encounter Care Teams Commissioning Specialist Relationship Specialty Start Date End Date Marilu Reynoso, WIREWORKER SUPERVISOR 230 [place] [address] PCP - General Family Medicine 01/02/22 Raissa To PharmD 230 [place] [address] Pharmacist Internal Medicine 06/17/24 Irina Barragan, GERMANIA [address] [place] [address] Registered Nurse Family Medicine 01/02/25 04/24/25 Alexus Alvarez 01/02/25 Dariela Alvarez, GERMANIA [address] [place] [address] Registered Nurse Family Medicine 04/24/25 Lisset Varner Cottrell Operator 04/08/24 07/08/24 documented as of this encounter
--- OUTSIDE RECORDS SUMMARY | 2025-05-05 10:18 | XMS_ITS ---
Author Organization [employer] Address [address] [place] [address] 7t [place] [address] Care Team Providers Care Shoe Repairer Name Role Phone [place] Primary Care Provider [phone] Raissa To PharmD Unavailable [phone] Alexus Alvarez Unavailable Dariela Alvarez RN Unavailable [phone] [facility] Complex Status:Enrolled (Active) Start date:01/02/2025 Enrollment date:01/24/2025 Enrollment reason:ADT Feed Overview ED- Pt went to [facility] on 01/01/25. Case Team Name Relationship Phone Alexus Alvarez(Responsible Staff) [phone] Continued Care and Services Coordination
--- OUTSIDE RECORDS SUMMARY | 2025-05-05 10:18 | XMS_ITS | Encounter Summary ---
Author Organization [employer] Address [address] [facility] 7t [place] [address] Care Team Providers Care Butane Compressor Operator Name Role Phone [facility] Primary Care Provider [phone] Raissa To PharmD Unavailable [phone] Irina Barragan RN Unavailable [phone] Alexus Alvarez Unavailable Dariela Alvarez RN Unavailable [phone] Reason for Visit * Reason Comments Med Refill Encounter Details Date Type Department Care Team (Late st Contact Info) Description 01/20/2025 Refill [facility] 230 [place], [place] [phone] [place] [facility] [address] [place], [place] [phone] Severe persistent asthma without complication; Severe persistent asthma, unspecified whether complicated Social History Tobacco Use Types Packs/Day Years Used Date Smoking Tobacco: Every Day Cigarettes Passive Smoke Exposure: Never Smokeless Tobacco: Never Alcohol Use Standard Drinks/Week Comments Never 0 (1 standard drink = 0.6 oz pur e alcohol) Depression Answer Date Recorded Patient Health Questionnaire-9 Score 0 01/24/2025 Patient Health Questionnaire-9 Score 0 01/24/2025 Last PHQ-9: Questionnaire Data Not on file 0 01/24/2025 Housing Stability Answer Date Recorded What is [...] getting things needed for daily living? No 01/24/2025 Utilities Answer Date Recorded In the past 12 months, has t he electric, gas, oil or water company threatened to shut off services in your home? No 03/18/2024 Depression Answer Date Recorded Patient Health Questionnaire-2 Score 0 01/24/2025 Internet Access Answer Date Recorded Internet Access [...] Description 05/17/2025 2:00 PM EDT Office Visit [facility] MED[facility] [address] [place] [address] [place], Marilu, [address] [address] 05/26/2025 12:45 PM EDT Office Visit [facility] ADULT DENTAL [address] [place] [address] [phone] Marlee Blanchard [address] [place] [address] 06/02/2025 2:30 PM EDT Medication Management [facility] [address] [place] [address] Raissa To PharmD [address] [place] [address] documented as of this encounter Visit Diagnoses Diagnosis Severe persistent asthma without complication Severe persistent asthma, unspecified whether complicated documented in this encounter Additional Health Concerns Assessment Noted Time PHQ-9 Depression Total Score: 7 11/22/19 25 3:30 PM EDT documented as of this encounter Care Teams Butane Compressor Operator Relationship Specialty Start Date End Date [place] DAVID MichelP [address] [place] [address] PCP - General Family Medicine 01/02/22 Raissa To PharmD [address] [place] [address] Pharmacist Internal Medicine 06/17/24 Irina Barragan RN [address] [place] [address] Registered Nurse Family Medicine 01/02/25 04/24/25 Alexus Alvarez 01/02/25 Dariela Alvarez, GERMANIA [address] [place] [address] Registered Nurse Family Medicine 04/24/25 documented as of this encounter
--- OUTSIDE RECORDS SUMMARY | 2025-05-05 10:18 | XMS_ITS | Encounter Summary ---
Author Organization [employer] Address [address] [facility] 7t [place] [address] Care Team Providers Care Medical Administrator Name Role Phone Marilu Reynoso DIESEL MAINTENANCE ELECTRICIAN Primary Care Provider Raissa To PharmD Unavailable [phone] Irina Barragan RN Unavailable [phone] Alexus Alvarez Unavailable Dariela Alvarez RN Unavailable [phone] Reason for Visit * Reason Onset Date Comments Appointment 10/21/2022 Encounter Details Date Type Department Care Team ([facility] st Contact Info) Description 10/21/[address] [facility] ADULT DENTAL 230 [place], [place] [phone] Luiz Moody DDS [address] [place], [place] [phone] Appointment Social History Tobacco Use Types Packs/Day [...] Recorded In the last 10 days, have yo u been in contact with someone who was [...] Description 05/17/2025 2:00 PM EDT Office Visit [facility] MEDICINE [address] [place] [address] [facility], [facility] [address] [place] [address] 05/26/2025 12:45 PM EDT Office Visit [facility] ADULT DENTAL [address] [place] [address] Santo, Marlee [address] [place] [address] 06/02/2025 2:30 PM EDT Medication Management [facility] MEDICINE [address] [place] [address] Raissa To, PharmD [address] [place] [address] documented as of this encounter Visit Diagnoses Not on filedocumented in this encounter Care Teams Medical Administrator Relationship Specialty Start Date End Date Marilu Reynoso FNP [address] [place] [address] PCP - General Family Medicine 01/02/22 Raissa To, Rafia [address] [place] [address] Pharmacist Internal Medicine 06/17/24 Irina Barragan, GERMANIA [address] [place] [address] Registered Nurse Family Medicine 01/02/25 04/24/25 Alexus Alvarez 01/02/25 Dariela Alvarez, RN [address] [place] [address] Registered Nurse Family Medicine 04/24/25 Lisset Varner Supervisor Blueprinting And Photocopy 04/08/24 07/08/24 documented as of this encounter
--- OUTSIDE RECORDS SUMMARY | 2025-05-05 10:18 | XMS_ITS | Encounter Summary ---
Author Organization [employer] Address [address] [facility] 7t [place] [address] Care Team Providers Care Telegraph And Teletype Operator Name Role Phone [facility] Primary Care Provider [phone] Raissa To PharmD Unavailable [phone] Alexus Alvarez Unavailable Dariela Alvarez RN Unavailable [phone] Reason for Visit * Reason Comments Care Coordination C3CM/CHW Alexus rogers, Sdoh f/u, PT1 Encounter Details Date Type Department Care Team (Latest Contact Info) Description 05/02/2025 Patient Outreach [facility] MEDICINE [address] [place], [place] [phone] [facility] [address] [place], [place] [phone] Care Coordination (C3CM/CHW Alexus Alvarez, Virgiliooh f/u, PT1) Social History Tobacco Use Types Packs/Day Years Used Date Smoking Tobacco: Every Day Cigarettes Passive Smoke Exposure: Never Smokeless Tobacco: Never Alcohol Use Standard Drinks/Week Comments Never 0 (1 standard drink = 0.6 oz pur e alcohol) Depression Answer Date Recorded Patient Health Questionnaire-9 Score 0 02/08/2025 Patient Health Questionnaire-9 Score 0 02/08/2025 Last PHQ-9: Questionnaire Data Not on file 0 02/08/2025 Housing Stability Answer Date Recorded What is [...] Date Recorded Patient Health Questionnaire-2 Score 0 02/08/2025 Internet Access Answer Date Recorded Internet Access Q1 Yes 04/18/2024 Internet Access Q2 Not on file 04/18/2024 Comments Unknown Sex and Gender Information Value Date Recorded Sex Assigned at Female 06/16/2022 10:14 AM EDT Legal Sex Female 10:14 AM EDT Gender Identity Female 06/16/2022 10:14 AM EDT Sexual Orientation Straight 06/16/2022 10 :14 AM EDT documented as of this encounter Progress Notes * Alexus Alvarez - 05/02/2025 10:39 AM EDT CHW Alexus Alvarez placed an outbound call to patient to follow up on SDOH needs. Patient???s name,, and address were confirmed. Per patient???s request, CHW scheduled transportation to upcoming appointments at [facility] and [facility] GI. A new PT1 was submitted to [facility], [facility] Pulmonology, [facility] Core PT, and [facility] Ortho. CHW will follow up by 05/05/25 to schedule transportation for the following upcoming appointments: [facility] Ortho on 05/04/25 at 2:30 PM, [facility] Core PT on 05/15/25 at 1:00 PM, and [facility] PFT on 05/23/25 at3:00 PM. Patient denies any additional SDOH needs at this time. documented in this encounter Plan of Treatment Upcoming Encounters Date Type Department Care Team (Late st Contact Info) Description 05/17/2025 2:00 PM EDT Office Visit [facility] MEDIC[facility] [address] [place] [address] [place], [facility] [address] [place] [address] 05/26/2025 12:45 PM EDT Office Visit [facility] ADULT DENTAL [address] [place] [address] Santo, Marlee [address] [place] [address] 06/02/2025 2:30 PM EDT Medication Management [facility] MEDICINE [address] [place] [address] Raissa To PharmD [address] [place] [address] documented as of this encounter Visit Diagnoses Not on filedocumented in this encounter Additional Health Concerns Assessment Noted Time PHQ-9 Depression Total Score: 0 02/09/20 2:59 PM EDT documented as of this encounter Care Teams Telegraph And Teletype Operator Relationship Specialty Start Date End Date [place] [facility] [address] [place] [address] PCP - General Family Medicine 01/02/22 Raissa To, ConsueloD [address] [place] [address] Pharmacist Internal Medicine 06/17/24 Alexus Alvarez 01/02/25 Dariela Alvarez, RN [address] [place] [address] Registered Nurse Family Medicine 04/24/25 documented as of this encounter
--- OUTSIDE RECORDS SUMMARY | 2025-05-05 10:18 | XMS_ITS | Encounter Summary ---
Author Organization [employer] Address [address] [facility] 7t [place] [address] Care Team Providers Care Senior Management Consultant Name Role Phone Marilu Reynoso SEMICONDUCTOR LAB TECHNICIAN Primary Care Provider [phone] Raissa To PharmD Unavailable [phone] Irina Barragan RN Unavailable [phone] Alexus Alvarez Unavailable Dariela Alvarez RN Unavailable [phone] Encounter Details Date Type Department Care Team (Late st Contact Info) Description 11/10/2024 Orders Only [facility] 230 [place], [place] [phone] Leighann Tran NP [address] [place], [place] [phone] Bacterial vaginosis (Primary Dx) Social History Tobacco [...] Description 05/17/2025 2:00 PM EDT Office Visit [facility] MEDICINE [address] [place] [address] [place], [place], [address] [address] 05/26/2025 12:45 PM EDT Office Visit [facility] ADULT DENTAL [address] [place] [address] Marlee Blanchard [address] [place] [address] 06/02/2025 2:30 PM EDT Medication Management [facility] MED[facility]INE [address] [place] [address] Raissa To, PharmD [address] [place] [address] documented as of this encounter Visit Diagnoses Diagnosis Bacterial vaginosis- Primary Unspecified vaginitis and vulvovaginitis documented in this encounter Additional Health Concerns Assessment Noted Time PHQ-9 Depression Total Score: 9 07/18/20 24 1:40 PM EST documented as of this encounter Care Teams Senior Management Consultant Relationship Specialty Start Date End Date [place] Marilu SEMICONDUCTOR LAB TECHNICIAN [address] [place] [address] PCP - General Family Medicine 01/02/22 Raissa To PharmD [address] [place] [address] Pharmacist Internal Medicine 06/17/24 Irina Barragan RN 505 [place] [address] Registered Nurse Family Medicine 01/02/25 04/24/25 Alexus Alvarez 01/02/25 Dariela Alvarez, GERMANIA 505 [place] [address] Registered Nurse Family Medicine 04/24/25 documented as of this encounter
--- OUTSIDE RECORDS SUMMARY | 2025-05-05 10:18 | XMS_ITS | Encounter Summary ---
Author Organization [employer] Address [address] 7t [place] [address] Care Team Providers Care Carpenter Assistant Installer Name Role Phone [facility] Primary Care Provider [phone] Raissa To PharmD Unavailable [phone] Alexus Alvarez Unavailable Dariela Alvarez RN Unavailable [phone] Encounter Details Date Type Department Care Team (Late st Contact Info) Description 05/05/2025 Refill [facility] 230 [place], [place] [phone] Marilu Reynoso [facility] 230 [place], [place] [phone] Thoracic back pain, unspecified back pain laterality, unspecified chronicity; Chronic major depressive disorder, recurrent episode (CMS/HCC) Social History Tobacco Use Types Packs/Day [...] Description 05/17/2025 2:00 PM EDT Office Visit [facility] [address] [place] [address] [facility], [facility] 230 [place] [address] 05/26/2025 12:45 PM EDT Office Visit [facility] [address] [place] [address] [place], Marlee 230 [place] [address] 06/02/2025 2:30 PM EDT Medication Management [facility] [address] [place] [address] Raissa To, PharmD 230 [place] [address] documented as of this encounter Visit Diagnoses Diagnosis Thoracic back pain, unspecified back pain laterality, unspecified chronicity Chronic major depressive disorder, recurrent episode (CMS/HCC) documented in this encounter Additional Health Concerns Assessment Noted Time PHQ-9 Depression Total Score: 0 02/09/20 2:59 PM EDT documented as of this encounter Care Teams Carpenter Assistant Installer Relationship Specialty Start Date End Date NunezMarilu samayoa FNP [address] [place] [address] PCP - General Family Medicine 01/02/22 Raissa oT PharmD [address] [place] [address] Pharmacist Internal Medicine 06/17/24 Alexus Alvarez 01/02/25 Dariela Alvarez RN [address] [place] [address] Registered Nurse Family Medicine 04/24/25 documented as of this encounter
--- OUTSIDE RECORDS SUMMARY | 2025-05-05 10:18 | XMS_ITS | Encounter Summary ---
Author Organization [email or web address] Address [address] 7t [place] [address] Care Team Providers Care Motor Vehicle Lecturer Name Role Phone Marilu Reynoso POLICY WRITER SALES Primary Care Provider [phone] Raissa To PharmD Unavailable [phone] Irina Barragan RN Unavailable [phone] Alexus Alvarez Unavailable Dariela Alvarez RN Unavailable [phone] Reason for Visit * Reason Comments Med Refill Encounter Details Date Type Department Care Team (Late st Contact Info) Description 03/06/2025 Refill [facility] 230 [place], [place] [phone] Laurence Parrish MD 230 [place], [place] [phone] Chronic major depressive disorder, recurrent episode (CMS/HCC) [...] PM EDT Office Visit [facility] [address] [place] [address] [place], Marilu, [facility] 230 [place] [address] 05/26/2025 12:45 PM EDT Office Visit [facility] [address] [place] [address] Marlee Blanchard 230 [place] [address] 06/02/2025 2:30 PM EDT Medication Management [facility] [address] [place] [address] Raissa To PharmD [address] [place] [address] documented as of this encounter Visit Diagnoses Diagnosis Chronic major depressive disorder, recurrent episode (CMS/HCC) documented in this encounter Additional Health Concerns Assessment Noted Time PHQ-9 Depression Total Score: 0 02/09/20 2:59 PM EDT documented as of this encounter Care Teams Motor Vehicle Lecturer Relationship Specialty Start Date End Date [place] CANDIS Michel 230 [place] [address] PCP - General Family Medicine 01/02/22 Raissa To PharmD 230 [place] [address] Pharmacist Internal Medicine 06/17/24 Irina Barragan RN 505 [place] [address] Registered Nurse Family Medicine 01/02/25 04/24/25 Alexus Alvarez 01/02/25 Dariela Alvarez, GERMANIA 505 [place] [address] Registered Nurse Family Medicine 04/24/25 documented as of this encounter
--- OUTSIDE RECORDS SUMMARY | 2025-05-05 10:18 | XMS_ITS | Encounter Summary ---
Author Organization [employer] Address [address] [facility] 7t [place] [address] Care Team Providers Care Shaker Operator Name Role Phone [facility] Primary Care Provider [phone] Raissa To PharmD Unavailable [phone] Irina Barragan RN Unavailable [phone] Alexus Alvarez Unavailable Dariela Alvarez RN Unavailable [phone] Reason for Visit * Reason Onset Date Comments Results 09/11/2023 Encounter Details Date Type Department Care Team ([facility] st Contact Info) Description 09/11/2023 Telephone [facility] 230 [place], [place] [phone] [facility] 230 [place], [place] [phone] Results Social History Tobacco Use Types Packs/Day [...] 2:00 PM EDT Office Visit [facility] 230 [place] [address] [place], Zebulon, HOT WALKER 230 [place] [address] 05/26/2025 12:45 PM EDT Office Visit [facility] ADULT D[facility] 230 [place] [address] Marlee Blanchard 230 [place] [address] 06/02/2025 2:30 PM EDT Medication Management [facility] 230 [place] [address] Raissa To, PharmD 230 [place] [address] documented as of this encounter Visit Diagnoses Not on filedocumented in this encounter Additional Health Concerns Assessment Noted Time PHQ-9 Depression Total Score: 16 023 12:28 PM EST documented as of this encounter Care Teams Shaker Operator Relationship Specialty Start Date End Date LakelandMarilu samayoa FNP 230 [place] [address] PCP - General Family Medicine 01/02/22 Raissa To, PharmD 230 [place] [address] Pharmacist Internal Medicine 06/17/24 Irina Barragan, GERMANIA 505 [place] [address] Registered Nurse Family Medicine 01/02/25 04/24/25 Alexus Alvarez 01/02/25 Dariela Alvarez, GERMANIA [address] [place] [address] Registered Nurse Family Medicine 04/24/25 Lisset Varner Information Systems Auditor 04/08/24 07/08/24 documented as of this encounter
--- OUTSIDE RECORDS SUMMARY | 2025-05-05 10:18 | XMS_ITS | Encounter Summary ---
Author Organization [employer] Address [address] 7t [place] [address] Care Team Providers Care Telecommunications Network Planner Name Role Phone Marilu Reynoso [employer] TRUCK DRIVER Primary Care Provider [phone] Raissa To PharmD Unavailable [phone] Irina Barragan RN Unavailable [phone] Alexus Alvarez Unavailable Dariela Alvarez RN Unavailable [phone] Reason for Visit * Reason Comments Med Refill Encounter Details Date Type Department Care Team (Late st Contact Info) Description 12/26/2024 Refill [facility] 230 [place], [place] [phone] Laurence Parrish MD 230 [place], [place] [phone] Adhesive capsulitis of left shoulder Social History Tobacco Use Types Packs/Day Years [...] Description 05/17/2025 2:00 PM EDT Office Visit [facility] [address] [place] [address] [facility], [facility] 230 [place] [address] 05/26/2025 12:45 PM EDT Office Visit [facility] 230 [place], [place] [phone] Marlee Blanchard 230 [place] [address] 06/02/2025 2:30 PM EDT Medication Management [facility] [address] [place] [address] Raissa To PharmD 230 [place] [address] documented as of this encounter Visit Diagnoses Diagnosis Adhesive capsulitis of left shoulder documented in this encounter Additional Health Concerns Assessment Noted Time PHQ-9 Depression Total Score: 7 11/22/19 25 3:30 PM EDT documented as of this encounter Care Teams Telecommunications Network Planner Relationship Specialty Start Date End Date Marilu Reynoso FNP 230 [place] [address] PCP - General Family Medicine 01/02/22 Raissa To PharmD 230 [place] [address] Pharmacist Internal Medicine 06/17/24 Irina Barragan RN 505 [place] [address] Registered Nurse Family Medicine 01/02/25 04/24/25 Alexus Alvarez 01/02/25 Dariela Alvarez, RN 505 [place] [address] Registered Nurse Family Medicine 04/24/25 documented as of this encounter
--- OUTSIDE RECORDS SUMMARY | 2025-05-05 10:18 | XMS_ITS | Encounter Summary ---
Author Organization [employer] Address [address] 7t [place] [address] Care Team Providers Care Post Adoption Coordinator Name Role Phone Marilu Reynoso PHOTO LAB TECHNICIAN Primary Care Provider [phone] Raissa To PharmD Unavailable [phone] Irina Barragan RN Unavailable [phone] Alexus Alvarez Unavailable Dariela Alvarez RN Unavailable [phone] Encounter Details Date Type Department Care Team (Late st Contact Info) Description 11/25/2023 Orders Only [facility] 230 [place], [place] [phone] Provider, MD Yessenia Social History Tobacco Use [...] Description 05/17/2025 2:00 PM EDT Office Visit [facility] [address] [place] [address] [place], Marilu, PHOTO LAB TECHNICIAN 230 [place] [address] 05/26/2025 12:45 PM EDT Office Visit [facility] 230 [place] [address] Santo, Marlee 230 [place] [address] 06/02/2025 2:30 PM EDT Medication Management [facility] 230 [place] [address] Raissa To, PharmD 230 [place] [address] documented as of this encounter Procedures Procedure Name Priority Date/Time Associated Diagnosis Comments COLONOSCOPY Routine 06/28/2019 8:54 AM EST documented in this encounter Results * Hm Colonoscopy (06/28/2019 8:54 AM EST) us Historical Provider HEALTH MAINTENANCE Final Result documented in this encounter Visit Diagnoses Not on filedocumented in this encounter Additional Health Concerns Assessment Noted Time PHQ-9 Depression Total Score: 16 023 12:28 PM EST documented as of this encounter Care Teams Post Adoption Coordinator Relationship Specialty Start Date End Date Marilu Reynoso FNP 230 [place] [address] PCP - General Family Medicine 01/02/22 Raissa To, ConsueloD 230 [place] [address] Pharmacist Internal Medicine 06/17/24 Irina Barragan, GERMANIA 505 [place] [address] Registered Nurse Family Medicine 01/02/25 04/24/25 Alexus Alvarez 01/02/25 Dariela Alvarez, GERMANIA 505 [place] [address] Registered Nurse Family Medicine 04/24/25 Lisset Varner Woodworker Helper 04/08/24 07/08/24 documented as of this encounter
--- OUTSIDE RECORDS SUMMARY | 2025-05-05 10:18 | XMS_ITS | Encounter Summary ---
Author Organization [employer] Address [address] [facility] 7t [place] [address] Care Team Providers Care Distribution Field Technician Name Role Phone Marilu Reynoso HISTORICAL SITE GUIDE Primary Care Provider [phone] Raissa To PharmD Unavailable [phone] Irina Barragan RN Unavailable [phone] Alexus Alvarez Unavailable Dariela Alvarez RN Unavailable [phone] Reason for Referral * Consultation (Routine) - Closed Specialty Diagnoses / Procedures Referred By Shane hubbard Referred To Contact Pharmacy Diagnoses Type 2 diabetes mellitus with hyperglycemia, with long-term current use of insulin ([facility]) Genesis Peacock MD 230 [place] [address] Phone: tel: fax: Referral ID Status Reason Start Date Expiration Date V isits Requested Visits Authorized [id number] Closed Consult and Treat 06/19/2024 06/19/2025 6 6 Encounter Details Date Type Department Care Team (Late st Contact Info) Description 06/19/2024 Orders Only [facility] 230 [place], [place] [phone] Genesis Peacock MD 230 [place], [place] [phone] Type 2 diabetes mellitus with hyperglycemia, with long-term current use of insulin ([facility]) (Primary Dx) Social History Tobacco Use Types [...] Description 05/17/2025 2:00 PM EDT Office Visit [facility] 230 [place] [address] [address] 05/26/2025 12:45 PM EDT Office Visit [facility] [address] [place] [address] Marlee Blanchard 230 [place] [address] 06/02/2025 2:30 PM EDT Medication Management [facility] [address] [place] [address] Raissa To PharmD [address] [place] [address] Scheduled Referrals Name Type Priority Associated Diagnoses [...] documented as of this encounter Care Teams Distribution Field Technician Relationship Specialty Start Date End Date [facility] [address] [place] [address] PCP - General Family Medicine 01/02/22 Raissa To, PharmD [address] [place] [address] Pharmacist Internal Medicine 06/17/24 Irina Barragan RN [address] [place] [address] Registered Nurse Family Medicine 01/02/25 04/24/25 Alexus Alvarez 01/02/25 Dariela Alvarez, RN [address] [place] [address] Registered Nurse Family Medicine 04/24/25 Lisset Varner Medical Pathologist 04/08/24 07/08/24 documented as of this encounter
--- OUTSIDE RECORDS SUMMARY | 2025-05-05 10:18 | XMS_ITS ---
Author Organization [employer] Address [address] [place] [address] 7t [place] [address] Care Team Providers Care Sales Recruiting Coordinator Name Role Phone AngelesMarilu SCRAP PREPARER Primary Care Provider [phone] Raissa To PharmD Unavailable [phone] Alexus Alvarez Unavailable Dariela Alvarez RN Unavailable [phone] CM Complex Status:Enrolled (Active) Start date:01/02/2025 Enrollment date:01/24/2025 Enrollment reason:ADT Feed Overview ED- Pt went to [facility] ED on 01/01/25. Case Team Name Relationship Phone Dariela Alvarez RN(Responsible Staff) Registered Nurse [phone] Continued Care and Services Coordination
--- OUTSIDE RECORDS SUMMARY | 2025-05-05 10:18 | XMS_ITS | Encounter Summary ---
Author Organization [employer] Address [address] 7t [place] [address] Care Team Providers Care Spectrographic Analyst Name Role Phone Marilu Reynoso PUBLIC HEALTH SPECIALIST Primary Care Provider [phone] Raissa To PharmD Unavailable [phone] Irina Barragan RN Unavailable [phone] Alexus Alvarez Unavailable Dariela Alvarez RN Unavailable [phone] Reason for Visit * Reason Onset Date Comments case back from lab?? 03/23/2024 Encounter Details Date Type Department Care Team ([facility] st Contact Info) Description 03/23/2024 Telephone [facility] 230 [place], [place] [phone] Luiz Moody DDS 230 [place], [place] [phone] case back from lab?? Social History Tobacco [...] Description 05/17/2025 2:00 PM EDT Office Visit [facility] 230 [place], [place] [phone] Marilu Reynoso FNP 230 [place] [address] 05/26/2025 12:45 PM EDT Office Visit [facility] 230 [place] [address] Marlee Blanchard 230 [place] [address] 06/02/2025 2:30 PM EDT Medication Management [facility] 230 [place] [address] Raissa To, Rafia 230 [place] [address] documented as of this encounter Visit Diagnoses Not on filedocumented in this encounter Additional Health Concerns Assessment Noted Time PHQ-9 Depression Total Score: 24 024 11:18 AM EDT documented as of this encounter Care Teams Spectrographic Analyst Relationship Specialty Start Date End Date Marilu Reynoso FNP [address] [place] [address] PCP - General Family Medicine 01/02/22 Raissa To, ConsueloD [address] [place] [address] Pharmacist Internal Medicine 06/17/24 Irina Barragan RN 505 [place] [address] Registered Nurse Family Medicine 01/02/25 04/24/25 Alexus Alvarez 01/02/25 Dariela Alvarez, RN 505 [place] [address] Registered Nurse Family Medicine 04/24/25 Lisset Varner Bottle Assembler 04/08/24 07/08/24 documented as of this encounter
--- OUTSIDE RECORDS SUMMARY | 2025-05-05 10:18 | XMS_ITS | Encounter Summary ---
Author Organization [employer] Address [address] 7t [place] [address] Care Team Providers Care Appointment Scheduler Name Role Phone Marilu Reynoso LINE MOVER Primary Care Provider [phone] Raissa To PharmD Unavailable [phone] Irina Barragan RN Unavailable [phone] Alexus Alvarez Unavailable Dariela Alvarez RN Unavailable [phone] Reason for Visit * Reason Comments Med Refill Encounter Details Date Type Department Care Team (Late st Contact Info) Description 02/23/2025 Refill [facility] 230 [place], [place] [phone] Laurence Parrish MD 230 [place], [place] [phone] Chronic major depressive disorder, recurrent episode (CMS/HCC) [...] Description 05/17/2025 2:00 PM EDT Office Visit [facility] [address] [place] [address] [place], Marilu, [facility] 230 [place] [address] 05/26/2025 12:45 PM EDT Office Visit [facility] [address] [place] [address] Marlee Blanchard 230 [place] [address] 06/02/2025 2:30 PM EDT Medication Management [facility] [address] [place] [address] Raissa To PharmD [address] [place] [address] documented as of this encounter Visit Diagnoses Diagnosis Chronic major depressive disorder, recurrent episode (CMS/HCC) documented in this encounter Additional Health Concerns Assessment Noted Time PHQ-9 Depression Total Score: 0 02/09/20 2:59 PM EDT documented as of this encounter Care Teams Appointment Scheduler Relationship Specialty Start Date End Date [place] CANDIS Michel 230 [place] [address] PCP - General Family Medicine 01/02/22 Raissa To PharmD 230 [place] [address] Pharmacist Internal Medicine 06/17/24 Irina Barragan RN 505 [place] [address] Registered Nurse Family Medicine 01/02/25 04/24/25 Alexus Alvarez 01/02/25 Dariela Alvarez, GERMANIA 505 [place] [address] Registered Nurse Family Medicine 04/24/25 documented as of this encounter
--- OUTSIDE RECORDS SUMMARY | 2025-05-05 10:18 | XMS_ITS | Encounter Summary ---
Author Organization [employer] Address [address] [facility] 7t [place] [address] Care Team Providers Care Cardiology Teacher Name Role Phone Marilu Reynoso ICE MAKER Primary Care Provider [phone] Raissa To PharmD Unavailable [phone] Irina Barragan RN Unavailable [phone] Alexus Alvarez Unavailable Dariela Alvarez RN Unavailable [phone] Reason for Visit * Reason Comments Med Refill Encounter Details Date Type Department Care Team (Late st Contact Info) Description 06/08/2023 Telephone [facility] 230 [place], [place] [phone] Name, MD Lexx 230 [place], [place] [phone] Med Refill Social History Tobacco Use Types [...] EST ----- Would you mind setting up [facility] [place] [place] for patient? documented in this encounter Plan of Treatment Upcoming Encounters Date Type Department Care Team (Late st Contact Info) Description 05/17/2025 2:00 PM EDT Office Visit [facility] 230 [place] [address] Marilu Reynoso FNP 230 [place] [address] 05/26/2025 12:45 PM EDT Office Visit [facility] ADULT D[facility] [address] [place] [address] Marlee Blanchard 230 [place] [address] 06/02/2025 2:30 PM EDT Medication Management [facility] [address] [place] [address] Raissa To PharmD 230 [place] [address] documented as of this encounter Visit Diagnoses Diagnosis Essential hypertension Unspecified essential hypertension documented in this encounter Additional Health Concerns Assessment Noted Time PHQ-9 Depression Total Score: 16 023 1:53 PM EDT documented as of this encounter Care Teams Cardiology Teacher Relationship Specialty Start Date End Date [facility] [address] [place] [address] PCP - General Family Medicine 01/02/22 Raissa To, ConsueloD [address] [place] [address] Pharmacist Internal Medicine 06/17/24 Irina Barragan RN 505 [place] [address] Registered Nurse Family Medicine 01/02/25 04/24/25 Alexus Alvarez 01/02/25 Dariela Alvarez, GERMANIA 505 [place] [address] Registered Nurse Family Medicine 04/24/25 Lisset Varner Chemical Analytical Sampler 04/08/24 07/08/24 documented as of this encounter
--- OUTSIDE RECORDS SUMMARY | 2025-05-05 10:19 | XMS_ITS | Clinical Summary ---
Author Organization [employer] Address [address] [place] [address] Care Team Providers Care Plaster Pattern Caster Name Role Phone Marilu Reynoso PERSONNEL ADMINISTRATOR Primary Care Provider [phone] Raissa To PharmD Unavailable [phone] Alexus Alvarez Unavailable Dariela Alvarez RN Unavailable [phone] Allergies Active Allergy Reactions Criticality Noted Date Comments Lisinopril Palpitations,Unknown Low 02/24/2020 Other reaction(s): Tachycardia Side Effects Penicillin V Rash Low 08/14/2010 Penicillins Rash Low 07/05/2022 Sulfamethoxazole Unknown,Rash Low 08/14/2010 Other reaction(s): unspecified Trimethoprim Unknown,Rash Low 08/14/2010 Other reaction(s): unspecified Medications * This [...] the evening and 2 tablets before bedtime. Active ibuprofen 400 MG tablet Take 400 mg by mouth every 6 (six) hours. 022 Active Methylcobalamin 1 MG chewable tablet Chew 2 tablets Once per day. 022 Active Spacer/Aero-Hol ding Chambers device Use it [...] Place into inhaler and inhale. 30 capsule Active Additional Information Patient not taking.Reported on 03/17/2025 Blood Pressure kitIndications: Essential hypertension Check bp 1-2 times per day. 1 kit Active fluticasone (Flonase) 50 MCG/ACT nasal spray INSTILL 2 SPRAYS IN EACH NOSTRIL ONCE DAILY IN THE MORNING SHAKE GENTLY 48 g Active glucose blood (FREESTYLE LITE) test stripIndication s:Type 2 diabetes mellitus with hyperglycemia, with long-term current use of insulin ([facility]) USE DIRECTED TO TEST BLOOD SUGAR FOUR TIMES DAILY 100 strip 11 Active insulin pen needle ([employer] SafePack Pen Needle) 32G x 4 mm miscIndications :Type 2 diabetes mellitus with hyperglycemia, with long-term current use of insulin ([facility]) USE DIRECTED WITH INSULIN 100 each Active TRUEplus Lancets 33G miscIndications :Type 2 diabetes mellitus with hyperglycemia, with long-term current use of insulin ([facility]) USE DIRECTED TO TEST BLOOD SUGAR FOUR TIMES DAILY 100 each Active levothyroxine (Synthroid, Levoxyl) 75 MCG tablet TAKE 1 TABLET BY MOUTH EVERY MORNING 90 tablet 3 Active diphenoxylate-a tropine (Lomotil) 2.5-0.025 MG tablet Active nicotine (Nicoderm, Step 1) 21 MG/24HR patch APPLY 1 PATCH TRANSDERMALLY DAILY Active fexofenadine (Sheri) 180 MG tabletIndicatio ns:Allergic rhinitis, unspecified seasonality, unspecified trigger Take 1 tablet (180 mg) by mouth Once per day. 30 tablet 11 024 2024 Active empagliflozin (Jardiance) 10 MGIndications:T ype 2 diabetes mellitus with diabetic microalbuminuri a, with long-term current use of insulin (CMS/HCC) Take 1 tablet (10 mg) by mouth Once per day. 30 tablet 11 024 2024 Active Alcohol Swabs (Alcohol Prep) padsIndications :Type [...] blood sugar four times daily 100 each 025 Active insulin pen needle 32G x 4 mm miscIndications :Type 2 diabetes mellitus with diabetic microalbuminuri a, with long-term current use of insulin (CMS/HCC) Use as instructed to inject insulin 4 times daily 120 each 025 2025 Active Continuous Glucose Cpc Coder (FreeStyle Stevo 3 Jefferson) deviceIndicatio ns:Type 2 diabetes mellitus with diabetic [...] days as directed for CGM 2 each 025 Active glucose blood (FreeStyle Precision Dylan Test) test stripIndication s:Type 2 diabetes mellitus with diabetic microalbuminuri a, with long-term current use of insulin ([facility]) Use to test blood sugar 4 times daily in case of CGM failure or extremes of BG 100 each 2025 Active famotidine (Pepcid) 20 MG tabletIndicatio ns:Dyspepsia Take 1 tablet (20 mg) by mouth 2 times daily. 60 tablet 2025 Active insulin lispro (HumaLOG KWIKPEN) 100 UNIT/ML injectionIndica tions:Type 2 diabetes mellitus with hyperglycemia, with long-term current use of insulin ([facility]) inject by subcutaneous route per the following sliding scale before meals; do not administer if you don't eat. Sliding scale: 131-180=8units, 181-240=10 units, 241-300=12 units, 301-350=14 units, >350=16 units 100 mL Active Aspirin Low Dose 81 MG EC tabletIndicatio ns:Essential hypertension TAKE 1 TABLET BY MOUTH EVERY MORNING 90 tablet Active montelukast (Singulair) 10 MG tablet TAKE 1 TABLET BY MOUTH EVERY EVENING DIRECTED 90 tablet 025 Active olmesartan (BENIcar) 20 MG tablet TAKE 1 TABLET BY MOUTH EVERY MORNING 90 tablet 025 Active omeprazole (PriLOSEC) [address] capsuleIndicati ons:Dyspepsia TAKE 1 CAPSULE BY MOUTH EVERY MORNING BEFORE MEALS 90 capsule Active rosuvastatin (Crestor) 40 MG tablet TAKE 1 TABLET BY MOUTH EVERY MORNING 90 tablet 025 Active D3 Super Strength 50 MCG (1999 UT) capsule TAKE 1 CAPSULE BY MOUTH EVERY MORNING 90 capsule 025 Active sertraline (Zoloft) 100 MG tabletIndicatio ns:Chronic major depressive disorder, single episode Take 1.5 tablets (150 mg) by mouth in the morning. 45 tablet 025 Active hydrOXYzine pamoate (Vistaril) 25 MG capsuleIndicati ons:Chronic major depressive disorder, single episode Take 1 capsule (25 mg) by mouth if needed in the morning and at bedtime for anxiety. 60 capsule 2 025 Active gabapentin (Neurontin) 100 MG capsuleIndicati ons:Thoracic back pain, unspecified back pain laterality, unspecified chronicity TAKE 2 CAPSULES BY MOUTH THREE TIMES DAILY IN THE MORNING, AT NOON AND AT BEDTIME 540 capsule 025 Active albuterol (Ventolin HFA) 108 (90 Base) MCG/ACT inhalerIndicati ons:Severe persistent asthma without complication INHALE 2 PUFFS BY MOUTH EVERY 4 TO 6 HOURS NEEDED 18 g 3 025 Active Fluticasone-Ume clidin-Vilant (Trelegy Ellipta) 200-62.5-25 MCG/ACT aerosol powderIndicatio ns:Severe persistent asthma without complication Inhale 1 puff Once per day. 1 each 1 025 Active lidocaine (Lidoderm) 5 % patchIndication s:Left arm pain APPLY 1 PATCH TOPICALLY TO SKIN, LEAVE ON FOR 12 HOURS AND OFF FOR 12 HOURS DIRECTED 15 patch 2 025 Active albuterol (2.5 MG/3ML) 0.083% nebulizer solutionIndicat ions:Severe persistent asthma with acute exacerbation Take via nebulizer every 4-6 hrs as needed for SOB, wheezing 90 mL 3 025 Active budesonide-form oterol (Symbicort) 160-4.5 MCG/ACT inhalerIndicati ons:Severe persistent asthma with acute exacerbation Inhale 2 puffs in the morning and at bedtime. Rinse mouth with water after use to reduce aftertaste and incidence of candidiasis. Do not swallow. 1 each 025 Active nicotine polacrilex (Nicorette) 2 MG gumIndications: Continuous dependence on cigarette smoking Chew [address] between cheeks and gums; use in place of cigarette every 1-2 hrs as needed 100 each 3 025 Active ibuprofen 600 MG tabletIndicatio ns:Closed displaced fracture of acromial end of left clavicle, initial encounter,Close d fracture of left scapula, unspecified part of scapula, initial encounter Take 1 tablet (600 mg) by mouth 3 times daily. 50 tablet 025 2024 Active QUEtiapine (SEROquel) 200 MG tabletIndicatio ns:Chronic major depressive disorder, recurrent episode (CMS/HCC) Take 1 tablet (200 mg) by mouth at bedtime. 30 tablet Active nystatin (Mycostatin) 540968 UNIT/GM powderIndicatio ns:Intertrigo Apply to affected area 3 times daily 60 g 025 2025 Active fluconazole (Diflucan) 150 MG tabletIndicatio ns:Intertrigo Take 1 tablet by oral route. Repeat in 72 hours. 2 tablet Active insulin glargine (Lantus SoloStar) 100 UNIT/ML penIndications: Type 2 diabetes mellitus with hyperglycemia, with long-term current use of insulin ([facility]) Inject subcutaneously 40 units once daily Active Ozempic, 0.25 or 0.5 MG/DOSE, 2 MG/3ML solution pen-injectorInd ications:Type 2 diabetes mellitus with hyperglycemia, with long-term current use of insulin ([facility]) Inject 0.5 mg under the skin every 7 (seven) days. 3 mL 1 Active Alcohol Swabs (Alcohol Prep) 70 % padsIndications :Type 2 diabetes mellitus with hyperglycemia, with long-term current use of insulin ([facility]) USE TO CLEAN SKIN BEFORE INJECTION DIRECTED 100 each 11 024 2024 Discontinued(M ed list cleanup (will not trigger notification to Pharmacy)) Continuous Glucose Cpc Coder (FreeStyle Stevo 2 Jefferson) deviceIndicatio ns:Type 2 diabetes mellitus with hyperglycemia, with long-term current use of insulin ([facility]) For monitoring interstitial glucose every 8 hours and as needed 1 each 024 2024 Discontinued(M ed list cleanup (will not trigger notification to Pharmacy)) Continuous Glucose Sensor (FreeStyle Stevo 2 Sensor) miscIndications :Type 2 diabetes mellitus with hyperglycemia, with long-term current use of insulin ([facility]) Test blood sugar every 8 hours and as needed 2 each 3 024 2024 Discontinued(M ed list cleanup (will not trigger notification to Pharmacy)) glucose blood (FreeStyle Precision Dylan Test) test stripIndication s:Type 2 diabetes mellitus with hyperglycemia, with long-term current use of insulin ([facility]) Test blood sugar every 8 hours and as needed 100 each 11 024 2024 Discontinued(M ed list cleanup (will not trigger notification to Pharmacy)) predniSONE (Deltasone) 20 MG tabletIndicatio ns:Adhesive capsulitis of left shoulder 2 tabs po daily for 5 days 10 tablet 025 2024 Discontinued(M ed list cleanup (will not trigger notification to Pharmacy)) semaglutide (Ozempic) 2 MG/1.5ML solution pen-injectorInd ications:Type 2 diabetes mellitus with hyperglycemia, with long-term current use of insulin ([facility]) Inject 0.25 mg under the skin 1 (one) time per week. PLEASE REVIEW TEACHING 1 each 12 025 2024 Discontinued(M ed list cleanup (will not trigger notification to Pharmacy)) insulin glargine (Lantus SoloStar) 100 UNIT/ML penIndications: Type 2 diabetes mellitus with hyperglycemia, with long-term current use of insulin ([facility]) Inject subcutaneously 38 units once daily 3 mL 1 025 2024 Discontinued QUEtiapine (SEROquel) 200 MG tabletIndicatio ns:Chronic major depressive disorder, recurrent episode ([facility]) TAKE 1 TABLET BY MOUTH AT BEDTIME 30 tablet 025 2024 Discontinued(R eorder (will not trigger notification to Pharmacy)) acetaminophen (Tylenol Extra Strength) 500 MG tabletIndicatio ns:Closed displaced fracture of acromial end of left clavicle, initial encounter,Close d fracture of left scapula, unspecified part of scapula, initial encounter Take 1 tablet (500 mg) by mouth every 6 (six) hours if needed for moderate pain for up to 13 days. 50 tablet 025 2024 Ozempic, 0.25 or 0.5 MG/DOSE, 2 MG/3ML solution pen-injector INJECT 0.25 MG SUBCUTANEOUSLY EVERY 7 DAYS IN THE ABDOMEN, THIGHS OR UPPER ARM. ROTATE INJECTION SITES. 025 2024 Discontinued(R eorder (will not trigger notification to Pharmacy)) Hospital, Clinic, or Other Facility Administered Medication Ordered Dose Route Frequency Start Date End Date Status ketorolac (Toradol) injection 30 mgIndications:Closed displaced fracture of acromial end of left clavicle, initial encounter,Closed fracture of left scapula, unspecified part of scapula, initial encounter 30 mg IM Once 04/05/2025 Ended Active Problems Problem Noted Date Diagnosed Date Closed displaced fracture of left clavicle 04/05 Assessment & Plan (04/05/2025 7:54 PM EDT): I will give her a Toradol injection today Advised she needs to wait 24 hours and then she can take ibuprofen and acetaminophen as needed I advised to follow-up with PCP P and orthopedics Closed fracture of left scapula 04/05/2025 Continuous dependence on cigarette smoking 03/17 Anxiety 01/18/2025 Insomnia 12/22/2024 Assessment & Plan (12/22/2024 1:40 PM EDT): Pt reports on Seroquel 200mg every evening for help with sleep. Reports being out of Seroquel. -refilled QUEtiapine (SEROquel) 200 MG Left arm pain 12/22/2024 Assessment & Plan (12/22/2024 1:42 PM EDT): Chronic left arm pain. -prescribed lidocaine (Lidoderm) 5 % patch Adhesive capsulitis of left shoulder 09/23/2024 Assessment & Plan (09/23/2024 2:27 PM EST): Sxs consistent with frozen shoulder. Moderate decreased ROM on exam. -prescribed predniSONE (Deltasone) 20 MG and ibuprofen 600 MG -ordered L shoulder XR -referred to orthopedics Chronic major depressive disorder, recurrent epi sode 06/24/2024 Assessment & Plan (12/22/2024 1:39 PM EDT): Pt reports on Seroquel 200mg every evening for help with sleep and Sertraline 50mg. Follows with her Therapist Maryuri, but does not have a psychiatrist. Denies suicidial or homacidial ideation. Reports being out of Seroquel. -refilled QUEtiapine (SEROquel) 200 MG Retained dental root 03/21/2024 Dental plaque 03/21/2024 Excessive attrition of teeth, limited to enamel 03/21/2024 Tobacco use 04/25/2023 Mood disorder 04/25/2023 Assessment & Plan (09/23/2024 2:27 PM EST): -gave number to call [facility] Healthcare maintenance 03/03/2023 Overview (02/19/2024): Pap: 2-18, HPV neg NIL-->overdue for repeat. Will schedule appointment today Mammogram: Pt missed multiple appointments--she needs to call to reschedule BMD: Routine age 65 LDLCT: Accepts referral to [facility] CRC: Has not complete previous GI referrals or cologuard (last ordered 07/2023) Will address again at follow up Assessment & Plan (08/05/2023 9:07 AM EST): Will reorder mammogram Pt accepts cologuard today. 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 evening - Metformin 1000mg b.i.d - Trulicity 4.5 mg SQ weekly - Humalog per sliding scale Current A1c 03/03/23-12.4 Foot Exam: 07/2023 Risk 1 Eye Exam: 06/2023 [facility] Lipid panel: 02/2023 Microalbumin:creatinine ratio: 42.5 02/2023 Statin: Yes ASA: Yes LAVELLE/ARB: Yes Encouraged regular aerobic exercise for improved glycemic control Encouraged daily foot checks Encouraged lean protein snacks and to avoid foods high in sugar and simple carbohydrates Treatment Goals: A1c goal: <7% FBG goal: <130 2 hour post prandial goal: <180 Assessment & Plan (12/27/2024 4:10 PM EDT): Uncontrolled, symptomatic w polydipsia and polyphagia. Increase Lantus to 30u/d and fu with PCP Start Ozempic 0.25mg/w (approved on 12/01/24, pharmacy aware) and FU w PCP Jardiance was not tolerated due to recurrent UTIs Assessment & Plan (08/05/2023 9:21 AM EST): Lab Results Component Value Date HGBA1C 13.9 (A) 06/19/2023 HGBA1C 12.4 (A) 03/03/2023 HGBA1C 12.9 (A) 02/23/2023 Lab Results Component Value Date MICROALBUR 10.0 03/05/2023 CREATININE 0.86 03/03/2023 INCREASE trulicity to 4.5mg subcutaneous Will reach out to DM educator re CGM start Assessment & Plan (06/21/2023 6:39 AM EST): Concern for hypoglycemia if restart at previous dose. Plan to simplify insulin regimen STOP humalog RESTART lantus-15 units every evening RESTART trulicity at 3mg subcutaneous (previously well tolerated by patient) Resubmit referral to DM educator to assist with CGM start Assessment & Plan (04/25/2023 10:22 PM EDT): Lab Results Component Value Date HGBA1C 12.4 (A) 03/03/2023 CGM sensor resent Will refer to [facility] DM educator Will hold off on adjusting insulin dose until more BS data available as patient has hx of hypoglycemia Continue current regimen Assessment & Plan (03/06/2023 1:36 PM EDT): Lab Results Component Value Date HGBA1C 12.4 (A) 03/03/2023 INCREASE trulicity to 4.5mg subcutaneous Refilled lantus and humalog PA previously submitted for CGM. Will submit order today to pharmacy Essential hypertension 06/02/2016 Overview (03/06/2023): Olmesartan 20mg daily Referred to cardiology (Dr. Mojica) in 2020 d/t reports of chest pain. Visit note not in chart. Echo from 10/2020 unremarkable Hx of QT prolongation noted at ED visit in 2018 thought to be related to high dose seroquel (600mg). EKG from 12/2021 with persistent left anterior fascicular block but no QT prolongation Assessment & Plan (08/05/2023 9:12 AM EST): Well controlled Continue current regimen Repeat EKG at follow up Assessment & Plan (06/21/2023 6:36 AM EST): Well controlled Continue current regimen Plan for repeat baseline EKG at follow up Assessment & Plan (04/25/2023 10:23 PM EDT): BP well controlled with medbox Continue current regimen New BP kit sent to pharmacy intermediate teacher (current) use of insulin 06/26/2015 Chronic major depressive disorder, single episod e 05/23/2015 Overview (03/06/2023): - Seroquel 150mg every evening for help with sleep - Sertraline 50mg - Psychiatric history unclear. ?bipolar disorder - Hx of suicidal ideation and psych hospitalization - Referred to [facility], per chart note, contact attempt was made. Patient needs to call back Assessment & Plan (12/27/2024 3:02 PM EDT): Increase sertraline to 100 mg/day, continue Seroquel same dose Awaiting evaluation by psychiatrist Denies SI/HI and feels safe at home. Assessment & Plan (06/21/2023 6:33 AM EST): - Resubmit referral to ([facility]) - Contact HC if sx worsen or experiencing thoughts of SI or self harm. Pt has [facility] crisis contact information Hyperlipidemia 05/23/2015 Hypothyroidism 05/23/2015 Overview (08/05/2023): Levothyroxine 75mcg Assessment & Plan (08/05/2023 9:15 AM EST): Repeat TSH today Severe persistent asthma 05/23/2015 Overview (02/10/2025): Assessment & Plan (08/05/2023 9:24 AM EST): [...] through. Provided patient and her daughter with [facility] pulmonology phone number to call and schedule initial appointment. - ED precautions reviewed Assessment & Plan (03/06/2023 1:10 PM EDT): Persistent diffuse wheezing Will re-submit referral to pulmonology Resolved Problems Problem Noted Date Diagnosed Date Resolved Date Microalbuminuria due to type 2 diabetes mellitus ([facility]) 04/25/2023 02/19/2024 Periodontal disease 10/23/2022 03/03/20 Dental caries 10/23/2022 03/03/2023 History of severe acute resp iratory syndrome coronavirus 2 (SARS-CoV-2) disease 09/24/202002/18 Thoracic back pain 01/18/2018 3 Allergic rhinitis 06/02/2016 03/06/2023 Encounters * This document contains information received from the source organization and may not represent a complete record from that organization. Date Type Department Care Team Description 05/05/2025 Refill [facility] [address] [place] [address] Marilu Reynoso FNP Thoracic back pain, unspecified back pain laterality, unspecified chronicity; Chronic major depressive disorder, recurrent episode ([facility]) 05/02/2025 Patient Outreach [facility] [address] [place] [address] Marilu Reynoso FNP Care Coordination (C3/Cristian Velarde f/u, PT1) 04/28/2025 2:40 PM EDT Office Visit [facility] [address] [place] [address] Marilu Reynoso FNP Intertrigo (Primary Dx) 04/28/2025 Travel 04/26/2025 Patient Outreach [address] [address] Marilu Reynoso PERSONNEL ADMINISTRATOR Care Management (C3CM- f/u call) 04/12/2025 Patient Outreach [facility] [address] [place] [phone] Marilu Reynoso PERSONNEL ADMINISTRATOR Care Coordination (C3CM/CRISTIAN Velarde f/u call_lvm ) 04/12/2025 Patient Outreach [facility] [address] [place] [address] Marilu Reynoso PERSONNEL ADMINISTRATOR Care Coordination (C3CM f/u call- LVM) 04/10/2025 Refill [facility] [address] [place] [address] Marilu Reynoso PERSONNEL ADMINISTRATOR Chronic major depressive disorder, recurrent episode (CMS/HCC) 04/07/[address] [address] Marilu Reynoso FNP 04/06/2025 Patient Outreach [address] [address] Marilu Reynoso PERSONNEL ADMINISTRATOR Care Management (C3CM- f/u call lvm) 04/05/2025 6:40 PM EDT Office Visit [facility] [address] [place] [phone] Mary Jo Woodruff MD Closed displaced fracture of acromial end of left clavicle, initial encounter; Closed fracture of left scapula, unspecified part of scapula, initial encounter 04/05/2025 Travel 04/04/[address] [address] Marilu Reynoso FNP Medication Question 03/31/[address] [address] Marilu Reynoso FNP 03/23/2025 Patient Outreach [address] [address] Marilu Reynoso FNP Care Management (C3CM- f/u call) 03/17/2025 10:15 AM EDT Office Visit [address] [address] Micki Ackerman ANP Asthma exacerbation with COPD (chronic obstructive pulmonary disease) ([facility]) (Primary Dx); Severe persistent asthma with acute exacerbation; Continuous dependence on cigarette smoking 03/17/2025 Travel 03/14/[address] [address] Marilu Reynoso FNP ER Follow-up 03/13/2025 Orders Only [facility] External Provider, [facility] 03/10/2025 Patient Outreach [address] [address] Marilu Reynoso FNP Care Coordination (C3/Virgilio Velardeoh f/u call_lvm ) 03/10/2025 Patient Outreach [address] [address] Marilu Reynoso FNP Care Management (C3CM- f/u call. lvm) 03/08/2025 Refill [facility] [address] [place] [address] Laurence Parrish MD Chronic major depressive disorder, recurrent episode ([facility]) 03/06/2025 Refill [facility] [address] [place] [address] Laurence Parrish MD Chronic major depressive disorder, recurrent episode ([facility]) 02/24/[address] [address] Marilu Reynoso FNP 02/23/2025 Patient Outreach [address] [address] Marilu Reynoso FNP Care Coordination (C3/Nicola Lovell Sdoh f/u call) 02/23/2025 Patient Outreach [facility] [address] [place] [address] Marilu Reynoso FNP Care Coordination (C3CM f/u call) 02/23/2025 Refill [facility] [address] [place] [address] Laurence Parrish MD Chronic major depressive disorder, recurrent episode ([facility]) 02/15/2025 Telephone [facility] [address] [place] [address] Edil, Ellyn, OD 02/14/2025 Telephone [facility] [address] [place] [address] Marilu Reynoso FNP telephone call Pulm Info 02/09/2025 Refill [facility] [address] [place] [address] Laurence Parrish MD Left arm pain 02/08/2025 2:30 PM EDT Office Visit [facility] [address] [place] [phone] Marilu Reynoso FNP Type 2 diabetes mellitus with hyperglycemia, with long-term current use of insulin ([facility]) (Primary Dx); Severe persistent asthma without complication; Closed nondisplaced fracture of acromial end of left clavicle, initial encounter 02/08/2025 Travel 02/08/2025 Patient Outreach [facility] [address] [place] [address] Marilu Reynoso FNP Care Coordination (C3/SHUBHAMW VIRGILIO ScottMN f/u call_lvm) 02/08/2025 Patient Outreach [facility] [address] [place] [address] Marilu Reynoso FNP Care Coordination (C3 f/u call- LVM) 02/07/2025 Patient Outreach [facility] [address] [place] [address] Marilu Reynoso FNP 02/07/2025 Telephone [facility] [address] [place] [address] Marilu Reynoso FNP chart prep 02/06/2025 Telephone [facility] [address] [place] [address] Marilu Reynoso FNP Nurse Triage 02/03/2025 Patient Outreach [facility] [address] [place] [address] Marilu Reynoso FNP from Last 3 Months Immunizations Immunization Administration Dates Next Due Hep B, adult 02/07/2014,09/22/2013,07/21/2013 Influenza Injectable Quadriv alant Preservative Free IIV4 MDCK 05/20/2022 Influenza injectable quadriv alent IIV4 with preservative 05/11/2018,07/23/2017,06/02/2016,05/23 Influenza injectable quadriv alent preservative free 07/20/2023,05/18/2020,05/17/2019 Influenza, IIV3, injectable 06/05/2014,1 ,07/16/2005,06/21,2003,05/27/2002,06/15/2000 ,06/21/1999,07/12/1997 Influenza, Split (incl. patirce fied surface antigen) 07/21/2013,04/13/2012 Influenza, seasonal, injecta [...] Tobacco: Never Tobacco Cessation:Ready to Q uit: Yes; Counseling Given: Yes Alcohol Use Standard Drinks/Week Comments Never 0 [...] Sign Reading Time Taken Comments Blood Pressure 140/70 04/28/2025 3:39 PM EDT Pulse 83 04/28/2025 2:35 PM EDT Temperature 36.7 C (98 F) 04/28/2025 2:35 PM EDT Respiratory Rate 18 04/28/2025 2:35 PM EDT Oxygen Saturation 98% 04/28/2025 2:35 PM EDT Inhaled Oxygen Concentration - - Weight 95.1 kg (209 lb 9.6 oz) 04/28/2025 2:35 P M EDT Height 152.4 cm (5') 03/17/2025 10:31 AM EDT Body Mass Index 40.93 03/17/2025 10:31 AM EDT Plan of Treatment Upcoming Encounters Date Type Department Care Team (Late st Contact Info) Description 05/17/2025 2:00 PM EDT Office Visit [facility] [address] [place] [address] Prescott, Marilu, PERSONNEL ADMINISTRATOR [address] [place] [address] 05/26/2025 12:45 PM EDT Office Visit [facility] [address] [place] [address] Marlee Blanchard [address] [place] [address] 06/02/2025 2:30 PM EDT Medication Management [facility] [address] [place] [address] Raissa To, PharmD [address] [place] [address] Health Maintenance Due Date Last Done Comments CT Colonography 1970 Dental Prophylaxis 1970 Dental X-Ray: Bitewings 1970 Dental X-Ray: Full Mouth 1970 FIT DNA/Cologuard 1970 FIT 1970 FOBT 1970 HIV Screening 1970 Sigmoidoscopy 1970 Hepatitis C Screening 1988 Pap Smear 1991 Colonoscopy 06/28/2022 06/28/2019 Colorectal Cancer Screening 06/28/2022 Cervical Cancer Screening 05/11/2023 HPV/Cotest 05/11/2023 05/11/2018, 01/14/2017 Dental Oral Exam 09/22/2024 03/21/2024, 10/23/2022 Influenza Vaccine (#1) 2025 , 07/20/2023, 05/20/2022, Additional history exists Eye Exam 06/25/2025 06/25/2023, 04/2023, 06/25/2023, Additional history exists Lipid Panel 07/11/2025 07/11/2024, 0703/2023, 01/03/2022 Diabetes: Foot Exam 07/18/2025 07/18/2024, 07/18/2024, 07/18/2024, Additional history exists Diabetes: Hemoglobin A1C 07/28/2025 025, 02/08/2025, 10/24/2024, Additional history exists Mammogram 11/30/2025 11/30/2024, 07/19, 08/13/2018, Additional history exists SDOH Screening 01/24/2026 01/24/2025 Alcohol/Substance Use Screening 02/08/2026 02/08/2025 Depression Screening 02/08/2026 02/08/2025, 02/09/20 Disability Screening 02/08/2026 02/08/2025 Tobacco Screening 05/03/2026 05/03/2025 DTaP/Tdap/Td Vaccines (4 - Td or Tdap) 10/12/2033 10/12/2023, 07/21/2013, 01/10/2005, Additional history exists RSV Patients and Patients Aged 60 years or older (1 - 1-dose 75+ series) 2045 Hepatitis B Vaccines Completed 02/07/2014, 09/22/2013, 07/21/2013 Pneumococcal Vaccine: 50+ Years Completed 07/20/2023, 02/22/2017, 12/21/2001 Zoster Vaccines Completed 10/12/2023, 05/20/2022 COVID-19 Vaccine Completed 07/18/2024, 11/2022, 03/25/2021, Additional [...] patient's age to complete this topic Meningococcal B Vaccine Aged Out No l onger eligible based on patient's age to complete [...] Diagnosis Comments POCT GLYCATED HEMOGLOBIN, TOTAL Routine 04/28/2025 1:09 PM EDT Type 2 diabetes mellitus with hyperglycemia, with long-term current use of insulin (CMS/[facility]) XR CHEST 2 VIEWS Routine 03/14/2025 2:56 AM EDT COMPREHENSIVE METABOLIC PANEL Routine 03/13/2025 8:49 PM EDT CBC WITH AUTO DIFFERENTIAL Routine 03/13/2025 8:49 PM EDT SARS COV2/INFLUENZA A/B AND RSV RNA QL NAAT Routine 03/13/2025 8:49 PM EDT XR KNEE 4+ VIEWS LEFT Routine 03/13/2025 8:48 PM EDT POCT GLYCATED HEMOGLOBIN, TOTAL Routine 02/08/2025 3:25 PM EDT Type 2 diabetes mellitus with hyperglycemia, with long-term current use of insulin ([facility]) POCT GLUCOSE Routine 02/08/2025 3:00 PM EDT Type 2 diabetes mellitus with hyperglycemia, with long-term current use of insulin ([facility]) BI MAMMOGRAM SCREENING TOMOSYNTHESIS BILATERAL Routine 11/30/2024 3:25 PM EDT Breast cancer screening by mammogram LIPID PANEL, STANDARD Routine 07/11/2024 3:30 PM EST PERIODIC ORAL EVALUATION - ESTABLISHED PATIENT Routine 03/21/2024 2:30 PM EDT HM COLONOSCOPY Routine 06/28/2019 8:54 AM EST ZZZ HISTORICAL HPV MRNA E6/E7 Routine 05/11/2018 10:15 AM EDT from Last 3 Months or Most Recently Relevant to Health Maintenance Results * (ABNORMAL) POCT A1c (04/28/2025 1:09 PM EDT) Only the most recent of2 resultswithin the time period is included. Hemoglobin A1C 10.6(A) 4.0 - 5.7 % QC Media Lot # [id number] Lot# Expiration Date [id number] Blood 04/28/2025 1:09 PM EDT [facility] PERSONNEL ADMINISTRATOR POINT OF CARE TEST ENTER/EDIT ORDERABLES Final Result * XR Chest 2 Views (03/14/2025 2:56 AM EDT) Anatomical Region Laterality Modality Chest Radiographic Thelma ging 03/14/2025 2:56 AM EDT Narrative 03/14/2025 2:58 AM EDT [address] [address] XRay Report Signed Patient: Shannon Aviles MR#: [id number] : 1970 Acct:[id number] Age/Sex: 54 / F ADM Date: 03/14/25 Loc: .ED Attending Dr: Ordering Physician: Rosibel Saels DO Date of Service: 03/14/25 Procedure(s): XR chest 2V Accession Number(s): [id number] cc: Rosibel Sales DO; [facility] CLINICAL HISTORY: cough with sputum production 2 view chest x-ray Comparison: CT/SR - CT CHEST WO IV CON - 02/01/25 19:01 EDT Findings: The lungs are clear. Heart size is normal. No acute fracture. IMPRESSION: 1. No acute findings. This document has been electronically signed by: Hugo Galvez MD on 03/14/2025 02:56:24 Dictated By: Hugo Galvez MD Signed By: <Electronically signed by Hugo Galvez MD in OV> 03/14/25256 DD/ 5 TD/TT: 03/14/25255 Prospect Manager: Procedure Note Rita, Image - 03/14/[address] [address] XRay Report Signed Patient: Pamela Aviles#: [id number] : 1970Acct:[id number] Age/Sex: 54 / FADM Date: 03/14/25 Loc: HO.ED Attending Dr: Ordering Physician: Rosibel Sales DO Date of Service: 03/14/25 Procedure(s): XR chest 2V Accession Number(s): [id number] cc: Rosibel Sales DO; [facility] CLINICAL HISTORY: cough with sputum production 2 view chest x-ray Comparison: CT/SR - CT CHEST WO IV CON - 02/01/25 19:01 EDT Findings: The lungs are clear. Heart size is normal. No acute fracture. IMPRESSION: 1. No acute findings. This document has been electronically signed by: Hugo Galvez MD on 03/14/2025 02:56:24 Dictated By: Hugo Galvez MD Signed By: <Electronically signed by Hugo Galvez MD in OV> 03/14/25256 DD/ 5 TD/TT: 03/14/25255 Prospect Manager: [facility] External Provider IMG XR PROCEDURES Final Result * SARS-CoV-2 RNA, Influenza A/B, and RSV RNA, Ql NAAT (03/13/2025 8:49 PM EDT) Influenza A PCR NEGATIVE Negative [facility] Influenza B PCR NEGATIVE Negative [facility] Resp Syncy Virus RNA Qual PCR NEGATIVE Negative [facility] SARS COV2 PCR NEGATIVE Negative [facility] Comment:All test results mus t be correlated with clinical findings.Negative results do not preclude SARS-CoV2, influenza Avirus, influenza B virus and/or RSV infectionand should not be used as the sole basis for treatment orother patient management decisions. Negative results must becombined with clinical observations, patient history, andepidemiological information.This test has not been evaluated for monitoring treatment ofinfection.This test has been authorized by the FDA under an EmergencyUse Authorization (EUA) for use by authorized laboratories.Testing performed on the [employer] GeneXpert utilizingreal-time RT-PCR.All SARS CoV2 and positive influenza A/B results arereported to [facility]. 03/13/2025 8:49 PM EDT 03/13/2025 9:00 PM EDT us Generic External Data Provider LAB MICROBIOLOGY - GENERAL ORDERABLES Final Result [facility] [address] [place] [address] [phone] * (ABNORMAL) CBC auto differential (03/13/2025 8:49 PM EDT) White Blood Count 10.0 4.8 - 10.8 X10*3/uL [facility] Red Blood Count 4.30 4.20 - 5.50 X10*6/uL [facility] Hemoglobin 12.3 12.0 - 16.0 g/dl [facility] Hematocrit 34.9(L) 37.0 - 47.0 % [facility] Mean Corpuscular Volume 81.2 80.0 - 98.0 fL [facility] Mean Corpuscular Hemoglobin 28.6 27.0 - 33.0 pg [facility] Mean Corpuscular HGB Conc 35.2(H) 31.0 - 35.0 g/dl [facility] Red Cell Distribution Width 13.0 11.0 - 16.0 % [facility] Platelet Count 259 160 - 400 X10*3/uL [facility] Mean Platelet Volume 10.9 9.4 - 12.3 fL [facility] Neutrophils Percent Auto 73.6(H) 45 - 73 % [facility] Imm Gran Pct Auto 0.4 0.0 - 0.4 % [facility] Lymphocytes Percent Auto 19.7(L) 20 - 40 % [facility] Monocytes Percent Auto 4.9 2 - 11 % [facility] Eosinophils Percent Auto 1.0 0 - 4 % [facility] Basophils Percent Auto 0.4 0 - 2 % [facility] NRBC Pct Auto 0.0 0.0 - 0.2 /100WBC [facility] Neutrophils Absolute Auto 7.4 2.0 - 8.3 x10*3/uL [facility] Imm Gran Abs Auto 0.04(H) 0.00 - 0.03 X10*3/uL [facility] Lymphocytes Absolute Auto 2.0 1.2 - 4.9 X10*3/uL [facility] Monocytes Absolute Auto 0.5 0.1 - 1.2 X10*3/uL [facility] Eosinophils Absolute Auto 0.1 0.0 - 0.4 X10*3/uL [facility] Basophils Absolute Auto 0.0 0.0 - 0.2 X10*3/uL [facility] NRBC Abs Auto 0.000 0.0 - 0.012 X10*3/uL [facility] 03/13/2025 8:49 PM EDT 03/13/2025 9:00 PM EDT us Generic External Data Provider LAB BLOOD ORDERAB LES Final Result [facility] [address] [place] [phone] * (ABNORMAL) Comprehensive Metabolic Panel (03/13/2025 8:49 PM EDT) Sodium 138 135 - 145 mmol/L [facility] Potassium 4.0 3.3 - 5.1 mmol/L [facility] Chloride 105 96 - 108 mmol/L [facility] Carbon Dioxide 21(L) 22 - 29 mmol/L [facility] Anion Gap 16 12 - 20 [facility] Urea Nitrogen (BUN) 11 9 - 16 mg/dL [facility] Creatinine, Serum 1.09 0.5 - 1.4 mg/dL [facility] Creatinine Clr Calc Pharmacy 58.7 [facility] Comment:Provided height and weight: 152.4 cm,89.2 kg.eGFR (calculated from the MDRD study equation) and eCrCl(calculated from the Cockcroft-Gault equation) are based ondifferent parameters and may not yield comparable results.If eCrCl result is absurd, please check patient'sheight/weight. Estimated Glomerular Filt Rate 52 [facility] Comment:Chronic Kidney Disea se: Estimated GFR < 60 mL/min/1.68t2Sdipqu Kidney Disease: Estimated GFR < 15 mL/min/1.73m2 Glucose 340(H) 60 - 115 mg/dL [facility] Calcium 9.2 8.4 - 10.2 mg/dL [facility] Bilirubin, Total 0.3 0.0 - 1.0 mg/dL [facility] Aspartate Amino Transferase 19 5 - 31 U/L [facility] Alanine Aminotransferase 16 0 - 31 U/L [facility] Total Protein 8.3(H) 6.5 - 8.0 g/dL [facility] Albumin Level 4.8 3.5 - 5.0 g/dL [facility] Alkaline Phosphatase 108 39 - 117 U/L [facility] 03/13/2025 8:49 PM EDT 03/13/2025 9:00 PM EDT us Generic External Data Provider LAB BLOOD ORDERAB LES Final Result [facility] [address] [place] [address] [phone] * XR Knee 4+ Views Left (03/13/2025 8:48 PM EDT) Anatomical Region Laterality Modality Lower Extremities, Knee Left Radiogra phic Imaging 03/13/2025 8:48 PM EDT Narrative 03/13/2025 8:50 PM EDT [address] [address] XRay Report Signed Patient: Shannon Aviles MR#: [id number] : 1970 Acct:[id number] Age/Sex: 54 / F ADM Date: 03/13/25 Loc: HO.ED Attending Dr: Ordering Physician: Sharon Chen NP Date of Service: 03/13/25 Procedure(s): XR knee LT 4V Accession Number(s): [id number] cc: Sharon Chen NP; [facility] CLINICAL HISTORY: pain after fall Four views of the left knee. COMPARISON: None provided. FINDINGS: No suprapatellar joint effusion. Joint spaces are maintained. Small osteophytes present along the medial and lateral compartments. Visualized portions of the distal femur, patella, and proximal tibia and fibula appear intact. IMPRESSION: 1. No radiographic evidence of acute injury to the left knee. This document has been electronically signed by: Candelario Rojo MD on 03/13/2025 20:48:22 Dictated By: Candelario Rojo MD Signed By: <Electronically signed by Candelario Rojo MD in OV> 03/13/252048 DD/ 47 TD/TT: 03/13/252047 Prospect Manager: Procedure Note Donotuseinterpreter, Image - 03/13/[address] [address] XRay Report Signed Patient: Jw AvilesR#: [id number] : 1970Acct:[id number] Age/Sex: 54 / FADM Date: 03/13/25 Loc: HO.ED Attending Dr: Ordering Physician: Sharon Chen NP Date of Service: 03/13/25 Procedure(s): XR knee LT 4V Accession Number(s): [id number] cc: Sharon Chen NP; [facility] CLINICAL HISTORY: pain after fall Four views of the left knee. COMPARISON: None provided. FINDINGS: No suprapatellar joint effusion. Joint spaces are maintained. Small osteophytes present along the medial and lateral compartments. Visualized portions of the distal femur, patella, and proximal tibia and fibula appear intact. IMPRESSION: 1. No radiographic evidence of acute injury to the left knee. This document has been electronically signed by: Candelario Rojo MD on 03/13/2025 20:48:22 Dictated By: Candelario Rojo MD Signed By: <Electronically signed by Candelario Rojo MD in OV> 03/13/252048 DD/ 47 TD/TT: 03/13/252047 Prospect Manager: [facility] External Provider IMG XR PROCEDURES Final Result * (ABNORMAL) POCT Glucose (02/08/2025 3:00 PM EDT) Glucose Blood, POC 256(A) 60 - 200 mg/dL Blood Capillary blood specimen / Unknown 02/08/2025 3:00 PM EDT [facility] PERSONNEL ADMINISTRATOR POINT OF CARE TEST ENTER/EDIT ORDERABLES Final Result * BI Mammogram Screening Tomosynthesis Bilateral (11/30/2024 3:25 PM EDT) Anatomical Region Laterality Modality Breast Bilateral Mammography 11/30/2024 3:25 PM EDT Narrative 12/10/2024 2:51 PM EDT [facility]'[address] [place] [address] Mammography Report Signed Patient: Shannon Aviles MR#: [id number] : 1970 Acct:[id number] Age/Sex: 54 / F ADM Date: 11/30/24 Loc: PARTH Attending Dr: Marilu Reynoso PERSONNEL ADMINISTRATOR Ordering Physician: Marilu Reynoso Results: 1Nega tive Date of Service: 11/30/24 Follow Up: 1 Year From Orig inal Mammogram Procedure(s): MM tomosynthesis screening BI Accession Number(s): [id number] cc: Marilu Reynoso PERSONNEL ADMINISTRATOR EXAMINATION: MM SCREENING DIGITAL BREAST TOMOSYNTHESIS, BILATERAL [...] Del Castillo DO 12/10/2024 02:48 PM EDT RP Dictated By: Adeline Del Castillo DO Signed By: <Electronically signed by Adeline Del Castillo DO in OV> 12/10/24 1448 DD/ 1525 TD/TT: 11/30/24 1539 Prospect Manager: Procedure Note Donotuseinterpreter, Image - 12/10/2024 [facility] [address] [place] [address] Mammography Report Signed Patient: Pamela Aviles#: [id number] : 1970Acct:[id number] Age/Sex: 54 / FADM Date: 11/30/24 Loc: PARTH Attending Dr: Marilu Reynoso PERSONNEL ADMINISTRATOR Ordering Physician: Marilu Reynoso FNPResults: 1Nega tive Date of Service: 11/30/24Follow Up: 1 Year From Orig inal Mammogram Procedure(s): MM tomosynthesis screening BI Accession Number(s): [id number] cc: Marilu Reynoso PERSONNEL ADMINISTRATOR EXAMINATION: MM SCREENING DIGITAL BREAST TOMOSYNTHESIS, BILATERAL [...] 12/10/24 1448 DD/ 1525 TD/TT: 11/30/24 1539 Prospect Manager: [facility] PERSONNEL ADMINISTRATOR IMG BI PROCEDURES Edited Resu lt - Final * (ABNORMAL) Lipid Panel, Standard (07/11/2024 3:30 PM EST) Triglycerides 184(H) <150 mg/dL [facility] Comment:Desirable Triglyceri de: less than 150 mg/dLBorderline High Triglyceride 150-199 mg/dLHigh Triglyceride: 200-499 mg/dLVery High Triglyceride: greater than or equal to 5OO mg/dL Cholesterol 123 <200 mg/dL [facility] Comment:Desirable Cholestero l: less than 200 mg/dLBorderline High Cholesterol: 200-239 mg/dLHigh Cholesterol: greater than 239 mg/dL LDL Cholesterol Calculated 46 <100 mg/dL [facility] Comment:Desirable LDL: less than 100 mg/dLNear Optimal/Above Optimal LDL: 110- 129 mg/dLBorderline High LDL: 130-159 mg/dLHigh LDL: 160-189 mg/dLVery High LDL: greater than or equal to 190 mg/dL HDL Cholesterol 41 >40 mg/dL [facility] Comment:Desirable HDL: grea ter than 40 mg/dL Note: This HDL assay may give artificially low results in patients with liver disease. 07/11/2024 3:30 PM EST 07/11/2024 3:55 PM EST [facility] PERSONNEL ADMINISTRATOR LAB BLOOD ORDERABLES Final Re sult [facility] [address] [place] [phone] * Hm Colonoscopy (06/28/2019 8:54 AM EST) Historical Provider HEALTH MAINTENANCE Final Result * HPV mRNA E6/E7 (05/11/2018 10:15 AM EDT) HPV mRNA E6/E7 Not Detected NOT DETECTED [facility] Comment: This test was performed using the APTIMA(R) HPV Assay ([employer] This assay detects E6/E7 viral messenger RNA (mRNA) from 14 high-risk HPV types (16,18,31,33,35,39,45,51, 52,56,58,59,66,68). For additional information please refer to: http://education.Game Digital/faq/BBG296r5 (This link is being provided for informational/ educational purposes only.) The analytical performance characteristics of this assay have been determined by [employer] [place], [place]. The modifications have not been cleared or approved by the FDA. This assay has been validated pursuant to the CLIA regulations and is used for clinical purposes. Test Performed by [facility], [place], [address] [place] [address] Messi Bowen M.D., Ph.D., Director of Laboratories , CLIA [id number] Please note: Effective 04/28/2016, HPV testing will be performed using [employer]'s APTIMA test which targets mRNA. Detecting mRNA instead of DNA, as in older methods, offers significant improvements in specificity. 05/11/2018 10:1 5 AM EDT us Mehreen Sorto NP HISTORICAL/NON ORDERABLE LABS Fi nal Result [facility] [address] from Last 3 Months or Most Recently Relevant to Health Maintenance Insurance [facility] C3 DENTAL-[facility] [employer]ICA[facility] STAND ADULT Care Teams Plaster Pattern Caster Relationship Specialty Start Date End Date [facility] [address] [place], [place] PCP - General Family Medicine 01/02/22 Raissa To, ConsueloD [address] [place] [phone] Pharmacist Internal Medicine 06/17/24 Alexus Alvarez 01/02/25 Dariela Alvarez, RN [address] [place] [phone] Registered Nurse Family Medicine 04/24/25
--- OUTSIDE RECORDS SUMMARY | 2025-05-05 10:19 | XMS_ITS | Encounter Summary ---
Author Organization [employer] Address [address] [place] [address] Care Team Providers Care Warp Drawer Name Role Phone [facility] Primary Care Provider [phone] Raissa To PharmD Unavailable [phone] Irina Barragan RN Unavailable [phone] Alexus Alvarez Unavailable Dariela Alvarez RN Unavailable [phone] Reason for Visit * Reason Comments Med Refill Encounter Details Date Type Department Care Team (Late st Contact Info) Description 08/13/2024 Refill [facility] [address] [place], [place] [phone] [facility] [address] [place] [address] Thoracic back pain, unspecified back pain laterality, unspecified chronicity; Mood disorder (CMS/[facility]) Social History Tobacco Use Types Packs/Day Years [...] PM EDT Office Visit [facility] [address] [place] [phone] [place] FNP [address] [place] [address] 05/26/2025 12:45 PM EDT Office Visit [facility] [address] [place] [address] S[place] Marlee [address] [place] [address] 06/02/2025 2:30 PM EDT Medication Management [facility] [address] [place] [phone] Raissa To, PharmD [address] [place] [address] documented as of this encounter Visit Diagnoses Diagnosis Thoracic back pain, unspecified back pain laterality, unspecified chronicity Mood disorder (CMS/HCC) Unspecified episodic mood disorder documented in this encounter Additional Health Concerns Assessment Noted Time PHQ-9 Depression Total Score: 9 07/18/20 24 1:40 PM EST documented as of this encounter Care Teams Warp Drawer Relationship Specialty Start Date End Date [place] Marilu [facility] [address] [place] [address] PCP - General Family Medicine 01/02/22 Raissa To, ConsueloD [address] [place] [address] Pharmacist Internal Medicine 06/17/24 Irnia Barragan, [place] [address] [place] [address] Registered Nurse Family Medicine 01/02/25 04/24/25 Alexus Alvarez 01/02/25 Dariela Alvarez, [place] [address] [place] [address] Registered Nurse Family Medicine 04/24/25 documented as of this encounter
--- OUTSIDE RECORDS SUMMARY | 2025-05-05 10:19 | XMS_ITS | Encounter Summary ---
Author Organization [employer] Address [address] [place] [address] Care Team Providers Care Skill Labor Name Role Phone Marilu Reynoso MARINE EQUIPMENT DESIGN ENGINEER Primary Care Provider [phone] Raissa To PharmD Unavailable [phone] Irina Barragan RN Unavailable [phone] Alexus Alvarez Unavailable Dariela Alvarez RN Unavailable [phone] Encounter Details Date Type Department Care Team (Late st Contact Info) Description 07/14/2023 Abstract [facility] [address] [place], [place] [id number] Shruthi Esparza Social History Tobacco Use Types [...] Description 05/17/2025 2:00 PM EDT Office Visit [facility] [address] [place] [phone] Marilu Reynoso FNP [address] [place] [address] 05/26/2025 12:45 PM EDT Office Visit [facility] [address] [place] [address] Sanot, Marlee [address] [place] [address] 06/02/2025 2:30 PM EDT Medication Management [facility] [address] [place] [address] Raissa To, PharmD [address] [place] [address] documented as of this encounter Visit Diagnoses Not on filedocumented in this encounter Additional Health Concerns Assessment Noted Time PHQ-9 Depression Total Score: 16 023 1:53 PM EDT documented as of this encounter Care Teams Skill Labor Relationship Specialty Start Date End Date Marilu Reynoso FNP [address] [place] [address] [place] [address] PCP - General Family Medicine 01/02/22 Raissa To, ConsueloD [address] [place] [address] Pharmacist Internal Medicine 06/17/24 Irina Barragan, GERMANIA [address] [place] [address] Registered Nurse Family Medicine 01/02/25 04/24/25 Alexus Alvarez 01/02/25 Dariela Alvarez, RN [address] [place] [address] Registered Nurse Family Medicine 04/24/25 Lisset Varner Multiple Wire Sawyer 04/08/24 07/08/24 documented as of this encounter
== END 2025-05-04 09:42 | disposition home or self-care (01) ==
LOC: HO.HOSX 09:41
PROVIDERS: Visit Provider Physician Assistant
DX: S42.142D Displaced fracture of glenoid cavity of scapula, left shoulder, subsequent encounter for fracture with routine healing (principal); X58.XXXD Exposure to other specified factors, subsequent encounter
CPT/HCPCS: 73010; 99212

== ENCOUNTER 2025-05-04 14:32 | Outpatient (AMB) | payer MEDICAID, SELFPAY ==
--- NOTE | 2025-05-04 14:48 | MHC.OFFVIS ---
Intake Visit Reasons: OV-lt scapula fx w xrays Intake Note: Shannon is a 54 year old female who presents today for an ER follow up of left scapular and clavicle fracture, DOI 01/29/25. At her last visit she will attend physical therapy, current restrictions of no use of weight and avoid any type of overhead reaching pushing pulling or carrying with the left upper extremity. Follow up in 8 weeks with x-rays. Patient reports she continues to have pain. States she recognizes she is stubborn and has been doing things she shouldnt be doing. States she cleans excessively and might be the cause of her increase pain. Information Systems Analyst Name: Heide HAYWARD LM Allergies lisinopril (LISINOPRIL) Allergy (Unknown, Verified 05/04/25 14:52) UNKNOWN Penicillins Allergy (Unknown, Verified 05/04/25 14:52) RASH sulfamethoxazole Allergy (Unknown, Verified 05/04/25 14:52) RASH trimethoprim Allergy (Unknown, Verified 05/04/25 14:52) RASH HPI HPI OV-lt scapula fx w xrays: Details: 54-year-old female returns to the office today for a follow-up left scapular fracture. She is 3 months out from injury. She has been working with physical therapy but states she may be doing too much as she has some discomfort in the left shoulder region. [facility] Medical History Smoking Other and unspecified hyperlipidemia Essential hypertension Type 2 diabetes mellitus with unspecified complications Palpitations Hypotension Anemia Migraine aura without headache Anxiety Depression Asthma Hyperlipidemia LDL goal <100 Vitamin D insufficiency Type 2 diabetes mellitus with hyperglycemia, with long-term current use of insulin Surgical History History of cholecystectomy Family History Mother Diabetes Brother Diabetes Social History Household Members: Family Housing: House Alcohol intake: current Alcohol intake frequency: does not drink Alcohol type: beer and wine Patient Tobacco Use Status: Current everyday Tobacco user Tobacco use type: Cigarette Cigarette Packs Per Day: 0.3 Cigarettes Per Day: 6.0 e-Cigarette/Vaping Use: Never Used Advance Directives Date on File: 07/06/24 service: No Current occupational status: unemployed Current occupation: right hand dominant Review of Systems Const All systems reviewed & are unremarkable except as noted in HPI and below Physical Exam Const General: cooperative and no acute distress Orientation/consciousness: patient oriented x3 Resp Effort & Inspection: normal respiratory effort and able to speak in complete sentences Cardio Peripheral pulses: Peripheral pulses 2+ throughout Neuro General: patient oriented x3 Extrem Other: Left shoulder normal to inspection she has limited range of motion with forward flexion to 85 degrees. Neurovascularly intact. Results Reviewed Results Reviewed: X-rays of the left scapula obtained in the office today and reviewed by me show stable fracture pattern. Assessment & Plan Assessment & Plan (1) Left scapula fracture: Code(s): S42.102A - Fracture of unspecified part of scapula, left shoulder, initial encounter for closed fracture Category: Medical Plan: Patient will continue with activities as tolerated. I explained to the discomfort she is experiencing maybe do some to some muscle weakness and poor posture. I encouraged her to continue working with physical therapy. If there is any concerns going forward she will contact our office otherwise follow up as needed. Orders: Orders XR scapula LT Today S42.142A - Displaced fracture of glenoid cavity of scapula, left shoulder, initial encounter for closed fracture Medications: New celecoxib (Celebrex) 200 mg PO BID 60 caps 3RF 30 days Coding Level of Care Code Est Pt Level 3 (57718) Complex EM visit Add On G2211 Diagnoses Left scapula fracture S42.102A
== END 2025-05-04 15:25 | disposition home or self-care (01) ==
LOC: HO.HOS 14:32
PROVIDERS: PCP Registered Nurse; Visit Provider Physician Assistant
DX: S42.102A Fracture of unspecified part of scapula, left shoulder, initial encounter for closed fracture (principal)
CPT/HCPCS: 99213

== ENCOUNTER → 2025-05-04 14:34 | Outpatient (BNV) | payer MEDICAID, SELFPAY | PROVIDERS: Visit Provider Radiology Diagnostic Radiology | DX: S42.142A Displaced fracture of glenoid cavity of scapula, left shoulder, initial encounter for closed fracture (principal) | CPT/HCPCS: 73010 ==

== ENCOUNTER 2025-05-22 14:00 | Outpatient (RCR) | payer MEDICAID, SELFPAY ==
[2025-05-15 13:05] VITALS: BP 127/60; PULSE 77
--- NOTE | 2025-05-15 14:10 | MHC.PT.EP ---
[facility] [place] Office [place] Office [place] Office [address] Dhruv Stafford [address] [phone] F: [phone] F: [phone] F: [phone] F: [phone] Physical Therapy Plan of Care Date of Evaluation: 05/15/25 Date of Surgery: NA Diagnosis: Fracture of unspecified part of scapula, L shoulder, initial encounter for closed fracture Assessment: Shannon is a 54 year old female who is referred to PT for Fracture of unspecified part of scapula, L shoulder, initial encounter for closed fracture . She injured her shoulder secondary to fall down the stairs about 3 months back. Her shoulder was immobilized in a sling for 2 months. She has had no PT so far. On PT examination she presents with TTP along anterior and posterior joint line, L UT, L medial border of scapula, 10/10 constant pain in L shoulder, divid noted at the posterior and superior joint line, decreased L shoulder ROM, decreased L shoulder and scap strength, and altered posture. Her daughter who is also her JTAC is assisting her with all ADLS due to pain. She is unemployed. She would benefit from skilled PT to address the aforementioned impairments and improve tolerance to functional activities. Frequency and Duration: The patient will be seen 2/week for 5 weeks Short Term Goals: 1. Pt will have 50% decrease in pain which will enable her to sleep through the night in 2 weeks 2. Pt will present with L shoulder ROM WFL which will enable her to dress her upper body with a pain no more than 3/10 in 4 weeks Mcfp Goals: 1. Pt will demonstrate an increase in muscle strength by 1 grade which will enable her to wash her hair and comb hair with a pain no more than 3/10 in 6 weeks 2. Pt will be able to resume cleaning and cooking at home with a pain no more than 2/10 in 7 weeks 3. Pt will be independent with all HEP for symptom management and maintenance following d/c in 8 weeks Treatment Plan: Modalities to reduce pain, spasms and effusion. Manual therapy to restore motion and function. Therapeutic exercise to improve strength and flexibility. Neuromuscular re-education for posture and balance. Therapeutic activities to return to functional activities of daily living. Electronically signed by: Dina Chacon PT DPT Please sign and return to therapist. Thank you for your referral.
--- NOTE | 2025-06-07 13:41 | MHC.PT.DC ---
[facility] [place] Office [place] Office [place] Office [address] Dhruv Stafford [address] [phone] F: [phone] F: [phone] F: [phone] F: [phone] Physical Therapy Discharge Report Diagnosis: Fracture of unspecified part of scapula, L shoulder, initial encounter for closed fracture Date of Surgery: NA Date of Evaluation: 05/15/25 Date of Discharge: 06/07/25 Treatments to Date: 2 Cancellations to Date: 0 No Shows to Date: 3 Discharge Status: Visit Non-compliance Discharge Summary: Shannon attended her evaluation and 1 more visit and no showed 3. She has not called to make any more appointments. She is therefore being d/c from PT for non compliance. Electronically signed by: Dina Chacon PT DPT Please sign and return to therapist. Thank you for your referral.
== END 2025-06-07 13:41 | disposition home or self-care (01) ==
LOC: HO.PT 14:00
PROVIDERS: PCP Registered Nurse; Visit Provider Physician Assistant
DX: S42.102D Fracture of unspecified part of scapula, left shoulder, subsequent encounter for fracture with routine healing (principal)
CPT/HCPCS: 97110; 97140; 97162

== ENCOUNTER 2025-07-01 14:23 | Emergency (ER) | payer MEDICAID, SELFPAY ==
--- NOTE | ~2025-07-01 | XR_ITS ---
CLINICAL HISTORY: sob Chest Radiographs, 2 views Comparison: CR - XR CHEST 2V - 03/14/25 02:[address]/SR - CT CHEST WO IV CON - 02/01/25 19:01 EDT CR - XR CHEST 2V - 01/01/25 10:22 EDT Findings: No cardiomegaly. Normal mediastinal contours. No pneumothorax. No opacity. No pleural effusion. No acute findings in the upper abdomen. No acute fracture. Impression: No acute findings. This document has been electronically signed by: Peri Dixon MD on 07/01/2025 16:01:55
[2025-07-01 14:27] VITALS: BP 141/65; PULSE 85; RESP 20; TEMP 36.9; O2SAT 95; BMI 38.7
--- NOTE | 2025-07-01 14:34 | ED.URI ---
HPI - URI/Sore Throat General Chief Complaint: Dyspnea Stated Complaint: Asthma, SOB Time Seen by Provider: 07/01/25 16:12 Source: patient Mode of arrival: ambulatory Limitations: no limitations History of Present Illness ED Provider: Dr. Doyle HPI Narrative: This is a 55-year-old female history of hypertension diabetes, asthma presented hospital today for evaluation of 5 days of productive coughing, nasal congestion and sore throat. Patient has been using nebulizer inhaler at home without any relief. She does feel short of breath. Denies any fever. Therefore she presents to the ER for further evaluation. Related Data Home Medications ?Medication ?Instructions ?Recorded ?Confirmed blood sugar diagnostic (FreeStyle #10 ea 07/24/20 03/27/22 Lite Strips) blood-glucose meter (FreeStyle #1 ea 07/24/20 03/27/22 Lite Meter kit) lancets 28 gauge (FreeStyle #100 ea 07/24/20 03/27/22 Lancets) gabapentin 100 mg capsule 2 cap PO BID 01/13/22 02/21/25 insulin glargine 100 unit/mL 22 unit subcut BEDTIME 01/13/22 02/21/25 subcutaneous solution (Lantus U-100 Insulin) levothyroxine 75 mcg tablet 1 tab PO DAILY@0600 03/27/22 02/21/25 montelukast 10 mg tablet 1 tab PO BEDTIME 03/27/22 02/21/25 omeprazole 20 mg capsule,delayed 1 cap PO DAILY@0630 03/27/22 02/21/25 release rosuvastatin 40 mg tablet 1 tab PO DAILY 03/27/22 02/21/25 sertraline 50 mg tablet 1 tab PO DAILY 03/27/22 02/21/25 olmesartan 20 mg tablet 20 mg PO DAILY 03/28/22 07/02/24 albuterol sulfate 90 mcg/actuation 2 puff inhalation Q6H PRN 07/02/24 02/21/25 aerosol inhaler (Ventolin HFA) Shortness Of Breath Or Wheezing aspirin 81 mg tablet,delayed 81 mg PO DAILY 07/02/24 02/21/25 release cyanocobalamin (vitamin B-12) 2,000 mcg PO DAILY 07/02/24 02/21/25 1,000 mcg tablet dulaglutide 4.5 mg/0.5 mL 4.5 mg subcut FR@0900 07/02/24 02/21/25 subcutaneous pen injector (Trulicity) insulin lispro 100 unit/mL 1 sliding scale dose subcut TIDAC 07/02/24 07/02/24 subcutaneous pen metformin 500 mg tablet 500 mg PO BIDWM 07/02/24 02/21/25 quetiapine 200 mg tablet 200 mg PO BEDTIME 07/02/24 02/21/25 hydroxyzine pamoate 25 mg capsule 25 mg PO anxiety 02/21/25 02/21/25 Previous Rx's ?Medication ?Instructions ?Recorded nicotine 21 mg/24 hr daily 21 mg transdermal DAILY #30 ea 07/05/24 transdermal patch psyllium husk 3.4 gram/5.4 gram 1 tbsp PO DAILY #660 grams 07/05/24 oral powder (Metamucil) ibuprofen 600 mg tablet 600 mg PO Q8H PRN fever or pain 02/01/25 #30 tabs prednisone 50 mg tablet 50 mg PO DAILY 5 days #5 tabs 03/14/25 celecoxib 200 mg capsule (Celebrex) 200 mg PO BID 30 days #60 caps 05/04/25 blood sugar diagnostic (Accutrend #25 ea 07/01/25 Glucose test strips) blood-glucose meter (Accu-Chek #1 ea 07/01/25 Guide Me Glucose Meter) prednisone 20 mg tablet 40 mg (2 x 20 mg) PO DAILY 5 days 07/01/25 #10 tabs Allergies Allergy/AdvReac Type Severity Reaction Status Date / Time lisinopril (LISINOPRIL) Allergy Unknown UNKNOWN Verified 07/01/25 14:36 Penicillins Allergy Unknown RASH Verified 07/01/25 14:36 sulfamethoxazole Allergy Unknown RASH Verified 07/01/25 14:36 trimethoprim Allergy Unknown RASH Verified 07/01/25 14:36 Review of Systems Review of Systems: Pertinent review of systems as mentioned in HPI. All other system otherwise negative. [facility] Past Medical History Medical History Smoking Other and unspecified hyperlipidemia Essential hypertension Type 2 diabetes mellitus with unspecified complications Palpitations Hypotension Anemia Migraine aura without headache Anxiety Depression Asthma Hyperlipidemia LDL goal <100 Vitamin D insufficiency Type 2 diabetes mellitus with hyperglycemia, with long-term current use of insulin Surgical History History of cholecystectomy Family History Family History Mother Diabetes Brother Diabetes Social History Social History Household Members: Family Housing: House Alcohol intake: never Patient Tobacco Use Status: Current everyday Tobacco user Tobacco use type: Cigarette Cigarette Packs Per Day: 0.3 Cigarettes Per Day: 6.0 Smoked in Last 30 Days: No e-Cigarette/Vaping Use: Never Used Use of substances other than those prescribed or required for medical reasons: No Advance Directives: Yes Advance Directives on File: Yes Advance Directives Date on File: 07/06/24 service: No Current occupational status: unemployed Current occupation: right hand dominant Physical Exam Exam: Exam: General: Pleasant, no distress, interacting appropriately Head: Normacephalic, atraumatic ENT: oral mucosa moist, neck supple, no tracheal deviation Cardiovascular: regular rate, regular rhythm, no murmurs, rubbing, gallops Respiratory: Bilateral wheezing on exam Neurological: Awake and alert, no facial droop noted Skin: Warm and dry Psychiatric: Appropriate mood and thoughts Vital Signs: Vital Signs: Last Vital Signs Temp 98.8 F 07/01/25 17:27 Pulse 79 07/01/25 17:27 Resp 20 07/01/25 17:27 BP 146/48 H 07/01/25 17:27 Pulse Ox 100 07/01/25 17:27 O2 Del Method Room Air 07/01/25 17:27 BMI result Body Mass Index 38.7 Course Course Course Narrative: Sumi Ivonne CANE FLUME WATCHER 07/01 0720 55-year-old female with extensive past medical history including insulin-dependent diabetes, hypertension, COPD, continued tobacco use here with asthma symptoms despite using inhalers, nebulizer machine at home. Also c/o chest and back pain with coughing/breathing. Will obtain labs, EKG, CXR, viral testing, bronch protocol VSS Medications Administered Discontinued Medications Generic Name Dose Route Start Last Admin Trade Name Freq PRN Reason Stop Dose Admin Albuterol Sulfate 5 mg/ 0 mg 07/01/25 14:57 07/01/25 15:06 Albuterol/Ipratropium 3 ml INHALE 07/01/25 14:58 2.5 each ONCE ONE Administration Sodium Chloride 1,000 mls @ 999 mls/hr 07/01/25 16:30 07/01/25 17:00 Ns IV 07/01/25 17:30 999 mls/hr .Q1H1M TRINH Administration Magnesium Sulfate 2 gm in 50 mls @ 150 mls/hr 07/01/25 16:38 07/01/25 17:37 Magnesium Sulfate/H2o IV 07/01/25 16:57 Infused ONCE ONE Infusion Medical Decision Making Medical Decision Making MDM Narrative: 55-year-old female history of hypertension, asthma, diabetes presented hospital today for evaluation of shortness of breath and productive cough for past 5 days. Patient does appear to be wheezing. We will plan to give patient some IV magnesium, patient is noted to be hyperglycemic blood sugar in the 500's we will plan to give patient a bolus IV fluid at this time. ED brown protocol will be initiated for the patient. Does not appear to be acutely tachypneic at this time. No sign of hypoxia. translator and interpreter was used for this encounter. translator and interpreter requested TV remote to be off during the encounter. However patient's daughter was at bedside and became agitated due to this request. translator and interpreter attempted to explain that it is hard for him to perform his job with extra noise and distraction in the room. I attempted to de-escalate the situation between foreign language interpreter and patient's daughter and asked the foreign language interpreter to step out of the room. I explained to the daughter I am here to take care of her mom. I have asked her kindly to be kind to my staff as we are all trying to take care of her mom. Daughter began to raised her voice. I left the room to de-escalate situation. Will plan to re-assess patient after medications and recheck her sugar levels. Patient was ambulated on pulse ox. O2 saturation remained at 97%. Did not appear to be tachypneic. Review patient's chest x-ray. No signs of pneumonia. I suspect patient may have mild asthma exacerbation secondary to upper respiratory infection. No sign of leukocytosis, patient does have elevated sugar at 573. Did give patient a bolus IV fluid. Sugar has improved 340. According the patient she does not have a glucometer test strips at home. She does have follow up with her primary care doctor next week. She has not taken her insulin today. We will plan to discharge patient home. Encouraged her to take her insulin tonight. I did send off some prednisone in case the patient's shortness of breath is not improving. She does have nebulizer materials and supplies at home. And an inhaler. Patient will be discharged with close outpatient follow up. Return precautions given to return to ER if her breathing has worsened. Differential Diagnosis Differential Diagnoses: The differential diagnosis associated with the presentation includes Asthma exacerbation, Pneumonia, hyperglycemia Lab Data MDM Lab Attestation statement: I reviewed the patient's lab results. 07/01/25 14:51 07/01/25 14:51 Labs: Lab Results 07/01/25 07/01/25 Range/Units 14:51 18:48 WBC 5.2 (4.8-10.8) X10*3/uL RBC 4.19 L (4.20-5.50) X10*6/uL Hgb 11.1 L (12.0-16.0) g/dl Hct 33.7 L (37.0-47.0) % MCV 80.4 (80.0-98.0) fL MCH 26.5 L (27.0-33.0) pg MCHC 32.9 (31.0-35.0) g/dl RDW 13.1 (11.0-16.0) % Plt Count 177 D (160-400) X10*3/uL MPV 11.4 (9.4-12.3) fL Immature Gran % (Auto) 0.4 (0.0-0.4) % Neut % (Auto) 70.9 (45-73) % Lymph % (Auto) 17.9 L (20-40) % [place] % (Auto) 9.8 (2-11) % Eos % (Auto) 0.6 (0-4) % Baso % (Auto) 0.4 (0-2) % Lymph # (Auto) 0.9 L (1.2-4.9) X10*3/uL [place] # (Auto) 0.5 (0.1-1.2) X10*3/uL Eos # (Auto) 0.0 (0.0-0.4) X10*3/uL Baso # (Auto) 0.0 (0.0-0.2) X10*3/uL Abs Immat Gran (auto) 0.02 (0.00-0.03) X10*3/uL Absolute Neuts (auto) 3.7 (2.0-8.3) x10*3/uL Absolute Nucleated RBC 0.000 (0.0-0.012) X10*3/uL Nucleated RBC % (auto) 0.0 (0.0-0.2) /100WBC PT 13.6 H (11.2-13.5) SEC INR 1.1 (0.9-1.1) Sodium 132 L (135-145) mmol/L Potassium 4.0 (3.3-5.1) mmol/L Chloride 98 (96-108) mmol/L Carbon Dioxide 22 (22-29) mmol/L Anion Gap 16 (12-20) BUN 8 L (9-16) mg/dL Creatinine 0.95 (0.5-1.4) mg/dL Estim Creat Clear Calc 72.3 Estimated GFR > 60 POC Glucose 340 H (60-115) mg/dL Random Glucose 573 H* (60-115) mg/dL Calcium 8.7 (8.4-10.2) mg/dL Total Bilirubin 0.3 (0.0-1.0) mg/dL Direct Bilirubin 0.1 (0.0-0.5) mg/dL AST 16 (5-31) U/L ALT 11 (0-31) U/L Alkaline Phosphatase 135 H (39-117) U/L Troponin I High Sens < 2.7 (<3.5-17.0) ng/L Total Protein 7.3 (6.5-8.0) g/dL Albumin 4.3 (3.5-5.0) g/dL Influenza Type A (PCR) NEGATIVE (Negative) Influenza Type B (PCR) NEGATIVE (Negative) RSV RNA Qual (PCR) NEGATIVE (Negative) SARS-CoV-2 RNA (RT-PCR) POSITIVE A (Negative) Independent Interpretation I performed an independent interpretation of an: Plain X-Ray Radiology Impression Discussion of test interpretation with radiology: I have reviewed the radiologist's reading. Chronic Conditions Patient?s care impacted by: Diabetes Asthma Discharge Plan Discharge Clinical Impression: Hyperglycemia Asthma Qualifiers: Asthma severity: mild Asthma persistence: persistent Asthma complication type: uncomplicated Qualified Code(s): J45.30 - Mild persistent asthma, uncomplicated Patient Disposition: Home, Self-Care Instructions: Asthma (ED) Prescriptions: New (DME) blood-glucose meter [Accu-Chek Guide Me Glucose Mtr] Misc See Rx Instructions .Route Qty: 1 0RF Rx Instructions: As directed (DME) Accutrend Glucose test strips Strip See Rx Instructions .Route Qty: 25 0RF Rx Instructions: As directed prednisone 20 mg tablet 40 mg PO DAILY 5 Days Qty: 10 0RF No Action insulin glargine [Lantus U-100 Insulin] 100 unit/mL solution 22 unit subcut BEDTIME gabapentin 100 mg capsule 2 cap PO BID levothyroxine 75 mcg tablet 1 tab PO DAILY@0600 omeprazole 20 mg capsule,delayed release(DR/EC) 1 cap PO DAILY@0630 montelukast 10 mg tablet 1 tab PO BEDTIME sertraline 50 mg tablet 1 tab PO DAILY rosuvastatin 40 mg tablet 1 tab PO DAILY olmesartan 20 mg Tablet 20 mg PO DAILY metformin 500 mg tablet 500 mg PO BIDWM quetiapine 200 mg tablet 200 mg PO BEDTIME cyanocobalamin (vitamin B-12) 1,000 mcg tablet 2,000 mcg PO DAILY aspirin 81 mg tablet,delayed release (DR/EC) 81 mg PO DAILY albuterol sulfate [Ventolin HFA] 90 mcg/actuation HFA aerosol inhaler 2 puff INHALATION Q6H PRN (Reason: Shortness Of Breath Or Wheezing) Trulicity 4.5 mg/0.5 mL pen injector 4.5 mg subcut FR@0900 insulin lispro 100 unit/mL insulin pen 1 sliding scale dose subcut TIDAC Metamucil 3.4 gram/5.4 gram powder 1 tbsp PO DAILY Qty: 660 0RF Rx Instructions: mix into at least 8 oz of water or juice before administering nicotine 21 mg/24 hr Patch 24 Hour 21 mg transdermal DAILY Qty: 30 0RF ibuprofen 600 mg tablet 600 mg PO Q8H PRN (Reason: fever or pain) Qty: 30 0RF prednisone 50 mg tablet 50 mg PO DAILY 5 Days Qty: 5 0RF (DME) lancets [FreeStyle Lancets] 28 gauge misc See Rx Instructions .ROUTE .MEDSUPPLY Qty: 100 Rx Instructions: As directed (DME) blood-glucose meter [FreeStyle Lite Meter] Kit See Rx Instructions .ROUTE .MEDSUPPLY Qty: 1 Rx Instructions: As directed (DME) FreeStyle Lite Strips Strip See Rx Instructions .ROUTE .MEDSUPPLY Qty: 10 Rx Instructions: As directed hydroxyzine pamoate 25 mg capsule 25 mg PO celecoxib [Celebrex] 200 mg capsule 200 mg PO BID 30 Days Qty: 60 3RF Print Language: Ukrainian
--- NOTE | 2025-07-01 14:36 | ECG_ITS ---
Test Reason : CP/SOB Blood Pressure : */* mmHG Vent. Rate : 81 BPM Atrial Rate : 81 BPM P-R Int : 154 ms QRS Dur : 92 ms QT Int : 376 ms P-R-T Axes : 57 -47 7 degrees QTcB Int : 436 ms Normal sinus rhythm Left anterior fascicular block Moderate voltage criteria for LVH, may be normal variant ( R in aVL , Mohit product ) Abnormal ECG When compared with ECG of 01-Jan-2025 10:07, Incomplete right bundle branch block is no longer Present Referred By: Sumi Coronado Electronically Signed By: OLIVIA MADERA MD
[2025-07-01 14:56] LABS: MANUAL DIFF FLAG NO
[2025-07-01 14:58] LABS: Hematocrit 33.7 % (37.0-47.0); Hemoglobin 11.1 g/dl (12.0-16.0); Imm Gran Abs Auto 0.02 X10*3/uL (0.00-0.03); Imm Gran Pct Auto 0.4 % (0.0-0.4); Lymphocytes Absolute Auto 0.9 X10*3/uL (1.2-4.9); Mean Corpuscular HGB Conc 32.9 g/dl (31.0-35.0); Mean Corpuscular Hemoglobin 26.5 pg (27.0-33.0); Mean Corpuscular Volume 80.4 fL (80.0-98.0); NRBC Abs Auto 0.000 X10*3/uL (0.0-0.012); NRBC Pct Auto 0.0 /100WBC (0.0-0.2); Platelet Count 177 X10*3/uL (160-400); Red Blood Count 4.19 X10*6/uL (4.20-5.50); White Blood Count 5.2 X10*3/uL (4.8-10.8)
[2025-07-01 15:04] LABS: INTERNATIONAL NORM RATIO 1.1 (0.9-1.1); Prothrombin Time 13.6 SEC (11.2-13.5)
[2025-07-01] MEDS: Albuterol Sulfate 5 MG, Albuterol/Iprat 2.5/0.5MG 3 ML 3 ML INHALE (15:06)
[2025-07-01 15:08] VITALS: PULSE 77; RESP 18; O2SAT 97
[2025-07-01 15:26] LABS: Alanine Aminotransferase 11 U/L (0-31); Albumin Level 4.3 g/dL (3.5-5.0); Alkaline Phosphatase 135 U/L (39-117); Anion Gap 16 (12-20); Aspartate Amino Transferase 16 U/L (5-31); Blood Urea Nitrogen 8 mg/dL (9-16); Calcium 8.7 mg/dL (8.4-10.2); Carbon Dioxide 22 mmol/L (22-29); Chloride 98 mmol/L (96-108); Creatinine Clr Calc Pharmacy 72.3; Estimated Glomerular Filt Rate > 60; Potassium 4.0 mmol/L (3.3-5.1); Sodium 132 mmol/L (135-145); Total Protein 7.3 g/dL (6.5-8.0)
[2025-07-01 15:33] LABS: Troponin-I High Sensitivity < 2.7 ng/L (<3.5-17.0)
[2025-07-01] MEDS: Magnesium Sulfate/H2O 2 GM/50 ML PIGGYBACK IV (17:00)
--- NOTE | 2025-07-01 17:03 | PC.NURSE ---
Pt comes to ED for c/o SOB and cough x5 days. This RN enters exam room along with Dr. Doyle and Foundation Coordinator Praas for exam. Pts Daughter is at bedside. Dr. Doyle and Paras begin to question Pt on her symptoms causing her to visit the ED. At this time, the TV was on and playing at a high volume. Paras requests it be muted as to not interfere with interpreter and translator services. Pts daughter immediately states that Paras is speaking louder than the TV. Paras begins to explain that the TV was interfering with his ability to translate which is why he requested it be turned off temporarily. During this explanation, Pts daughter interrupts Paras and dismisses his attempt to explain. Dr. Doyle and Paras attempt to begin resume communication with the Pt. As Paras begins to translate questions put forth by Dr. Doyle, Pts daughter abruptly interrupts, placing her face in front of the Pts and begins speaking to her and interfering with Joses attempt to translate. Dr. Doyle addresses the Pts daughter on this behavior and explains that the goal of this encounter is to provide necessary medical care to her mother, to which Pts daughter replies by stating she already takes care of her mother. At this point in the encounter, Pts daughter is speaking in an aggressive/challenging tone and her volume is raised above what would be necessary for professional communications. Dr. Doyle attempts to resume care however Pts daughter continues to interrupt and therefore Dr. Doyle asks Paras to exit the room. Dr. Doyle proceeds to completed lung sound exam and exits the room. While this RN reviews Pts chart at the computer, Pts daughter states that she plans to report Dr. Doyle and Paras to authorities and that she wont allow for Paras to be paid to translate for her mother when she is bilingaul. This RN states she will return when medications have been ordered and exits the exam. sour bleaching pleater Jess made aware of situation.
[2025-07-01 17:27] VITALS: BP 146/48; PULSE 79; RESP 20; TEMP 37.1; O2SAT 100
--- NOTE | 2025-07-01 17:38 | PC.NURSE ---
Ambulation trial completed. 98% RA during ambulation. Pt denies feeling SOB or having difficulty walking. ED provider made aware.
[2025-07-01 18:12] LABS: Resp Syncy Virus RNA Qual PCR NEGATIVE (Negative); SARS COV2 PCR INHOUSE POSITIVE (Negative)
[2025-07-01 18:53] LABS: Glucose, Whole Blood 340 mg/dL (60-115)
[2025-07-01 19:32] VITALS: BP 146/48; PULSE 79; RESP 20; TEMP 37.1; O2SAT 100
== END 2025-07-01 19:35 | disposition home or self-care (01) ==
PROVIDERS: Nurse Practitioner Family; Emergency Provider Student in an Organized Health Care Education/Training Program; PCP Registered Nurse
DX: U07.1 COVID-19 (principal); J45.30 Mild persistent asthma, uncomplicated; E11.65 Type 2 diabetes mellitus with hyperglycemia; I10 Essential (primary) hypertension; F17.210 Nicotine dependence, cigarettes, uncomplicated; Z79.4 Long term (current) use of insulin; Z88.0 Allergy status to penicillin; Z88.2 Allergy status to sulfonamides; Z88.8 Allergy status to other drugs, medicaments and biological substances
CPT/HCPCS: 71046; 80048; 80076; 82947; 84484; 85025; 85610; 87637; 93005; 94640; 96365; 99285; J3475

== ENCOUNTER → 2025-07-01 14:36 | Outpatient (BNV) | payer MEDICAID, SELFPAY | PROVIDERS: Emergency Provider Student in an Organized Health Care Education/Training Program; PCP Registered Nurse; Visit Provider Internal Medicine Cardiovascular Disease | DX: I44.4 Left anterior fascicular block (principal) | CPT/HCPCS: 93010 ==

== ENCOUNTER → 2025-07-01 14:36 | Outpatient (BNV) | payer MEDICAID, SELFPAY | PROVIDERS: Emergency Provider Student in an Organized Health Care Education/Training Program; PCP Registered Nurse; Visit Provider Radiology Diagnostic Radiology | DX: R06.02 Shortness of breath (principal) | CPT/HCPCS: 71046 ==

== ENCOUNTER 2025-07-07 10:28 | Inpatient (IN) | payer MEDICAID, SELFPAY ==
--- OUTSIDE RECORDS SUMMARY | 2025-07-05 14:45 | XMS_ITS | Encounter Summary ---
Author Organization [email or web address] Address [address] [place] [address] Care Team Providers Care Oil Dipper Name Role Phone [place], [facility] Primary Care Provider [phone] Raissa To PharmD Unavailable [phone] Reason for Visit * Reason Comments Follow-up Encounter Details Date Type Department Care Team ([facility] st Contact Info) Description 07/05/2025 2:45 PM EST Office Visit [facility] [address] [place], [place] [id number] [facility] [address] [place], [place] [id number] Asthma exacerbation with COPD (chronic obstructive pulmonary disease) ([facility]/HCC) ([facility]) (Primary Dx); Type 2 diabetes mellitus with hyperglycemia, with long-term current use of insulin ([facility]); Hyperglycemia Social History Tobacco Use Types Packs/Day Years [...] Sign Reading Time Taken Comments Blood Pressure 140/72 07/05/2025 3:01 PM EST Pulse 88 07/05/2025 3:01 PM EST Temperature 36.7 C (98 F) 07/05/2025 3:01 PM EST Respiratory Rate 20 07/05/2025 3:01 PM EST Oxygen Saturation 95% 07/05/2025 3:01 PM EST Inhaled Oxygen Concentration - - Weight 93.9 kg (207 lb) 07/05/2025 3:01 PM EST Height 152.4 cm (5') 07/05/2025 3:01 PM EST Body Mass Index 40.43 07/05/2025 3:01 PM EST documented in this encounter Patient Instructions * Patient Instructions* [facility], COPIER REPAIR TECHNICIAN - 07/05/2025 2:45 PM EST WHILE TAKING PREDNISONE INCREASE mealtime sliding scale Blood sugar 181-240=14 units 241-300=16 units 301-350=18 units, >350=20 units Return to normal sliding scale once prednisone completed documented in this encounter Plan of Treatment Upcoming Encounters Date Type Department Care Team (Late st Contact Info) Description 08/16/2025 11:30 AM EST Office Visit [facility] [address] [place] [address] Marilu Reynoso FNP [address] [place] [address] documented as of this encounter Goals Goal Patient Goal Type Associated Problems Recent Progress Patient-Stated? Author Help patients manage their type 2 diabetes Care Plan Help patients manage their type 2 diabetes No Araceli Appiah Weekly blood pressure task Care Plan Weekly blood pressure task No Araceli Appiah Help patients manage their type 2 diabetes Care Plan Help patients manage their type 2 diabetes No Araceli Appiah Patient has chronic kidney disease Care Plan Patient has chronic kidney disease No Araceli Appiah Weekly blood pressure task Care Plan Weekly blood pressure task No Araceli Appiah Patient has chronic kidney disease Care Plan Patient has chronic kidney disease No Araceli Appiah Weekly blood pressure task Care Plan Weekly blood pressure task No Shaggy Breauxupe, COPIER REPAIR TECHNICIAN Weekly blood pressure task Care Plan Weekly blood pressure task No Elyseo Krys, COPIER REPAIR TECHNICIAN Patient has chronic kidney disease Care Plan Patient has chronic kidney disease No Elyseo Krys, COPIER REPAIR TECHNICIAN Patient has chronic kidney disease Care Plan Patient has chronic kidney disease No Saeid Krys, COPIER REPAIR TECHNICIAN Weekly blood pressure task Care Plan Weekly blood pressure task No Nicole Pedroza RN Weekly blood pressure task Care Plan Weekly blood pressure task No Nicole Pedroza, [place] Patient has chronic kidney disease Care Plan Patient has chronic kidney disease No Nicole Pedroza, [place] Patient has chronic kidney disease Care Plan Patient has chronic kidney disease No Nicole Pedroza, [place] Weekly blood pressure task Care Plan Weekly blood pressure task No Cruz Hughes PharmD Weekly blood pressure task Care Plan Weekly blood pressure task No Cruz Hughes, Rafia Patient has chronic kidney disease Care Plan Patient has chronic kidney disease No Cruz Hughes PharmD Patient has chronic kidney disease Care Plan Patient has chronic kidney disease No Cruz Hughes PharmD Weekly blood pressure task Care Plan Weekly blood pressure task No Dank Hernández MA Weekly blood pressure task Care Plan Weekly blood pressure task No Dank Hernández [place] Patient has chronic kidney disease Care Plan Patient has chronic kidney disease No Dank Hernández [place] Patient has chronic kidney disease Care Plan Patient has chronic kidney disease No Dank Hernández MA Weekly blood pressure task Care Plan Weekly blood pressure task No Dank Hernández MA Weekly blood pressure task Care Plan Weekly blood pressure task No Dank Hernández MA Patient has chronic kidney disease Care Plan Patient has chronic kidney disease No Dank Hernández [place] Patient has chronic kidney disease Care Plan Patient has chronic kidney disease No Dank Hernández MA documented as of this encounter Procedures Procedure Name Priority Date/Time Associated Diagnosis Comments POCT URINALYSIS DIPSTICK Routine 07/05/2025 3:22 PM EST Type 2 diabetes mellitus with hyperglycemia, with long-term current use of insulin (HCC) POCT GLUCOSE Routine 07/05/2025 3:02 PM EST Type 2 diabetes mellitus with hyperglycemia, with long-term current use of insulin ([facility]) documented in this encounter Results * (ABNORMAL) POCT Urinalysis (07/05/2025 3:22 PM EST) Color, UA Yellow Clarity, UA Clear Glucose, UA 3+ 500+++ Comment:1000 Bilirubin, UA Negative Ketones, UA Negative Spec Grav, UA 1.005 Blood, UA Positive(A) Negative, None Detected Comment:trace pH, UA 5.5 Protein, UA Trace Comment:30mg/dL Urobilinogen, UA 0.2 Leukocytes, UA Negative Negative, Rare, Trace Nitrite, UA Negative Negative, None Detected Appearance, UA yellow clear Urine (Urine, Random) 07/05/2025 3:22 PM EST Result [facility] POINT OF CARE TEST ENTER/EDIT ORDERABLES Final Result * (ABNORMAL) POCT Glucose (07/05/2025 3:02 PM EST) [facility] Glucose Blood, POC 500(A) 60 - 200 mg/dL Comment:[facility] Blood Capillary blood specimen / Unknown 07/05/2025 3:02 PM EST [facility] POINT OF CARE TEST ENTER/EDIT ORDERABLES Final Result documented in this encounter Visit Diagnoses Diagnosis Asthma exacerbation with COPD (chronic obstructive pulmonary disease) ([facility]) ([facility])- Primary Type 2 diabetes mellitus with hyperglycemia, with long-term current use of insulin ([facility]) Hyperglycemia Other abnormal glucose documented in this encounter Administered Medications Inactive Administered Medications - up to 3 most recent administrations Medication Order MAR Action Action Date Dose Rate Site Insulin Lispro solution 10 Units 10 Units, Injection, Once, On Thu07/05/25 at 1545, For 1 doseIndications:Hyperglycemi a Given 07/05/2025 3:45 PM EST 10 Units Right Arm ipratropium-albuterol (Duo-Neb) 0.5-2.5 mg/3 mL nebulizer solution 3 mL 3 mL, Nebulization, Once, On Thu07/05/25 at 1545, For 1 doseIndications:Asthma exacerbation with COPD (chronic obstructive pulmonary disease) ([facility]) ([facility]) Given 07/05/2025 3:45 PM EST 3 mL documented in this encounter Additional Health Concerns Active Problems Noted Date Diagnosed Date Help patients manage their type 2 diabetes 06/28 Weekly blood pressure task 06/28/2025 Help patients manage their type 2 diabetes 06/28 Patient has chronic kidney disease 06/28/2025 Weekly blood pressure task 06/28/2025 Patient has chronic kidney disease 06/28/2025 Weekly blood pressure task 06/28/2025 Weekly blood pressure task 06/28/2025 Patient has chronic kidney disease 06/28/2025 Patient has chronic kidney disease 06/28/2025 Weekly blood pressure task 06/28/2025 Weekly blood pressure task 06/28/2025 Patient has chronic kidney disease 06/28/2025 Patient has chronic kidney disease 06/28/2025 Weekly blood pressure task 06/30/2025 Weekly blood pressure task 06/30/2025 Patient has chronic kidney disease 06/30/2025 Patient has chronic kidney disease 06/30/2025 Weekly blood pressure task 07/04/2025 Weekly blood pressure task 07/04/2025 Patient has chronic kidney disease 07/04/2025 Patient has chronic kidney disease 07/04/2025 Weekly blood pressure task 07/04/2025 Weekly blood pressure task 07/04/2025 Patient has chronic kidney disease 07/04/2025 Patient has chronic kidney disease 07/04/2025 Assessment Noted Time PHQ-9 Depression Total Score: 0 02/09/20 2:59 PM EDT documented as of this encounter Care Teams Oil Dipper Relationship Specialty Start Date End Date Marilu Reynoso FNP [address] [place] [address] PCP - General Family Medicine 01/02/22 Raissa To PharmD [address] [place] [id number] Pharmacist Internal Medicine 06/17/24 documented as of this encounter
[2025-07-07] VITALS (10 sets, daily range): BP systolic 94–131; BP diastolic 44–65; PULSE 72–90; RESP 16–20; TEMP 36.3–36.9; O2SAT 94–98; BMI 39.2
--- NOTE | ~2025-07-07 | XR_ITS ---
EXAMINATION: XR CHEST CLINICAL INFORMATION: Cough fever COMPARISON: 07/01/2025. TECHNIQUE: Frontal view of the chest was obtained. FINDINGS: The cardiac, hilar, and mediastinal contours are normal. The lungs are clear bilaterally. No pneumothorax or effusion. No focal osseous or soft tissue abnormality. XR/XR chest 1V IMPRESSION: No active lung disease. Electronically signed by: Kaiden Werner MD 07/07/2025 12:44 PM [facility]
--- NOTE | 2025-07-07 10:30 | ECG_ITS ---
Test Reason : CHEST PAIN Blood Pressure : */* mmHG Vent. Rate : 75 BPM Atrial Rate : 75 BPM P-R Int : 148 ms QRS Dur : 90 ms QT Int : 410 ms P-R-T Axes : 33 -39 20 degrees QTcB Int : 457 ms Normal sinus rhythm Left axis deviation Minimal voltage criteria for LVH, may be normal variant ( R in aVL ) Abnormal ECG When compared with ECG of 01-Jul-2025 14:41, No significant change was found Referred By: Generic ED Physician Electronically Signed By: SANDRA CHOUDHARY
[2025-07-07] MEDS: Magnesium Sulfate/H2O 2 GM/50 ML PIGGYBACK IV (10:50)
--- NOTE | 2025-07-07 10:51 | ED_ITS ---
HPI - Chest Pain General Chief Complaint: Chest Pain Stated Complaint: Chest pain Time Seen by Provider: 07/07/25 10:31 Source: patient, EMS, old records reviewed and cryptographic technician Mode of arrival: EMS Limitations: no limitations History of Present Illness ED Provider: SAMANTHA SY narrative: 55-year-old female with past medical history of hypertension, hyperlipidemia, diabetes, asthma not on home O2, she notes she has been sick for the last 1+ weeks with cough, sputum, wheezing, fevers, chills with known COVID diagnosed 07/01. She was seen here on 07/01 her labs showed hyperglycemia of 573 but no DKA, she was positive for COVID on 07/01 she, she did not relate this to us on arrival that she had COVID at this time I do not see that on her diagnosis. She notes she went to urgent care after she was discharged here she has been on 3 days of prednisone, return again to urgent Care has been on 2 days of azithromycin. She does not feel like she is getting any better. She was seen at [facility] and told him she had chest pain and was referred to the emergency department. She has wheezing on arrival EMS gave her IV fluids due to soft blood pressures. She notes she also has nausea. She states prior to all this she states at the [facility] in [place] subsequently became sick. MD complaint: chest pain (Asthma, upper respiratory infection) Onset (ago): day(s) (7+) Timing of current episode: increasing Prior episodes: Yes Onset: during rest Pain location: substernal and right chest Pain radiation: none Severity: moderate Quality: aching Relieving factors: nothing Exacerbating factors: inspiration and movement Context: recent illness Associated symptoms: nausea, dyspnea, fever and cough Treatment prior to arrival: other Related Data Home Medications ?Medication ?Instructions ?Recorded ?Confirmed blood sugar diagnostic (FreeStyle #10 ea 07/24/2003/17 Lite Strips) blood-glucose meter (FreeStyle #1 ea 07/24/20 03/27/22 Lite Meter kit) lancets 28 gauge (FreeStyle #100 ea 07/24/20 03/27/22 Lancets) gabapentin 100 mg capsule 2 cap PO BID 01/13/22 insulin glargine 100 unit/mL 22 unit subcut BEDTIME 02/21/25 subcutaneous solution (Lantus U-100 Insulin) levothyroxine 75 mcg tablet 1 tab PO DAILY@0600 02/21/25 montelukast 10 mg tablet 1 tab PO BEDTIME 03/27/22 omeprazole 20 mg capsule,delayed 1 cap PO DAILY@0630 0 03/27/22 02/21/25 release rosuvastatin 40 mg tablet 1 tab PO DAILY 03/27/2204/10 sertraline 50 mg tablet 1 tab PO DAILY 03/27/2204/10 olmesartan 20 mg tablet 20 mg PO DAILY 03/28/2206/17 albuterol sulfate 90 mcg/actuation 2 puff inhalation Q 6H PRN 07/02/24 02/21/25 aerosol inhaler (Ventolin HFA) Shortness Of Breath Or Wheezing aspirin 81 mg tablet,delayed 81 mg PO DAILY 07/02/24 0 02/21/25 release cyanocobalamin (vitamin B-12) 2,000 mcg PO DAILY 07/0202/21/25 1,000 mcg tablet dulaglutide 4.5 mg/0.5 mL 4.5 mg subcut FR@0900 02/21/25 subcutaneous pen injector (Trulicity) insulin lispro 100 unit/mL 1 sliding scale dose subcut TIDAC 07/02/24 07/02/24 subcutaneous pen metformin 500 mg tablet 500 mg PO BIDWM 07/02/2404/10 quetiapine 200 mg tablet 200 mg PO BEDTIME 07/02/24 0 02/21/25 hydroxyzine pamoate 25 mg capsule 25 mg PO anxiety 04/1002/21/25 Previous Rx's ?Medication ?Instructions ?Recorded nicotine 21 mg/24 hr daily 21 mg transdermal DAILY #30 ea 07/05/24 transdermal patch psyllium husk 3.4 gram/5.4 gram 1 tbsp PO DAILY #660 g evan 07/05/24 oral powder (Metamucil) ibuprofen 600 mg tablet 600 mg PO Q8H PRN fever or p ain 02/01/25 #30 tabs prednisone 50 mg tablet 50 mg PO DAILY 5 days #5 tab s 03/14/25 celecoxib 200 mg capsule (Celebrex) 200 mg PO BID 30 d ays #60 caps 05/04/25 blood sugar diagnostic (Accutrend #25 ea 07/01/25 Glucose test strips) blood-glucose meter (Accu-Chek #1 ea 07/01/25 Guide Nh Glucose Meter) prednisone 20 mg tablet 40 mg (2 x 20 mg) PO DAILY 5 days 07/01/25 #10 tabs Allergies Allergy/AdvReac Type Severity Reaction Status Date / Time lisinopril (LISINOPRIL) Allergy Unknown UNKNOWN Verified 07/07/25 10:35 Penicillins Allergy Unknown RASH Verified 07/07/25 10:35 sulfamethoxazole Allergy Unknown RASH Verified 07/07/25 10:35 trimethoprim Allergy Unknown RASH Verified 07/07/25 10:35 Review of Systems 2 Review of Systems: Constitutional : positive positive Fever, positive Chills ENT/Mouth : No sore throat, pos Rhinorrhea Eyes: No Eye Pain, No Swelling Cardiovascular : pos Chest Pain, pos SOB, positive Dyspnea on Exertion, No Orthopnea, No Edema, No Palpitations Respiratory : Positive Cough, No Sputum Gastrointestinal : pos Nausea, No Vomiting, No Diarrhea, No abdominal Pain, No Hematochezia, No Melena Genitourinary : No Dysuria, No Urinary Frequency Musculoskeletal : No joint pain, No Myalgias, No Joint Swelling Skin : No Skin Lesions, No rash Neuro : No Weakness, No Numbness, No Dizziness, No Headache All other systems reviewed and are negative [facility] Past Medical History Attestation statement: The following information was validated with the patient. Source: old records reviewed Medical History Smoking Other and unspecified hyperlipidemia Essential hypertension Type 2 diabetes mellitus with unspecified complications Palpitations Hypotension Anemia Migraine aura without headache Anxiety Depression Asthma Hyperlipidemia LDL goal <100 Vitamin D insufficiency Type 2 diabetes mellitus with hyperglycemia, with long-term current use of insulin Surgical History History of cholecystectomy Family History Family History Mother Diabetes Brother Diabetes Social History Social History Household Members: Family Housing: House Alcohol intake: never Patient Tobacco Use Status: Current everyday Tobacco user Tobacco use type: Cigarette Cigarette Packs Per Day: 0.3 Cigarettes Per Day: 6.0 Smoked in Last 30 Days: Yes e-Cigarette/Vaping Use: Never Used Use of substances other than those prescribed or required for medical reasons: No Advance Directives: Yes Advance Directives on File: Yes Advance Directives Date on File: 07/06/24 Do you have a plan to hurt others: No Plan Patient : No service: No Current occupational status: unemployed Current occupation: right hand dominant Physical Exam 2 Vital Signs: Vital Signs: Last Vital Signs Temp 98.5 F 07/07/25 10:34 Pulse 74 07/07/25 11:06 Resp 18 07/07/25 11:06 BP 94/44 L 07/07/25 10:34 Pulse Ox 98 07/07/25 10:34 O2 Del Method Room Air 07/07/25 10:34 BMI result Body Mass Index 39.2 Appearance: Alert. Oriented X3. Mild acute distress. Eyes: Pupils equal, round and reactive to light. ENT: Pharynx normal. Sounds nasally congested Neck: Normal inspection. Neck supple. CVS: Normal heart rate and rhythm. Pulses normal. Respiratory: No respiratory distress. Breath sounds very coarse at the bases with mild expiratory audible wheezes Abdomen: Soft and nontender. Skin: Skin warm and dry. Normal skin color. Normal skin turgor. Extremities: No lower extremity edema. Neuro: Oriented X 3. No motor deficit. No sensory deficit. Course Course Course Narrative: 10:51 AM 07/07/2025 (SAMANTHA DO): Patient is obese, her ideal body weight is 63.7 kilos which calculates after 30 cc/kilos bolus to 1,911 of IV fluid 11:45 AM 07/07/2025 (SAMANTHA DO): Patient has JULIO as well can not obtain CTA we will start with chest x-ray and D-dimer, patient also has hyperglycemic in addition to fluids will give IV insulin 1:13 PM 07/07/2025 (SAMANTHA DO): She is doing much better her blood pressure is improved at this time we will admit for further Medications Administered Discontinued Medications Generic Name Dose Route Start Last Admin Trade Name Freq PRN Reason Stop Dose Admin Albuterol Sulfate 2.5 mg/ 0 mg 07/07/25 11:06 07/07/25 11:11 Albuterol/Ipratropium 3 ml INHALE 07/07/25 11:07 5 dose ONCE ONE Administration Magnesium Sulfate 2 gm in 50 mls @ 150 mls/hr 07/07/25 10:37 07/07/25 11:16 Magnesium Sulfate/H2o IV 07/07/25 10:56 Infused ONCE ONE Infusion Levofloxacin 750 mg in 150 mls @ 100 mls/hr 07/07/25 10:37 07/07/25 11:20 Levaquin IV 07/07/25 12:06 100 mls/hr ONCE ONE Administration Lactated Ringer's 1,000 mls @ 999 mls/hr 07/07/25 11:00 07/07/25 12:16 Lr IV 07/07/25 13:00 Infused .Q1H1M TRINH Infusion Insulin Human Regular 5 unit 07/07/25 11:42 07/07/25 11:58 Insulin Regular, Human 100 Unit/Ml 10 Ml Vial IVPUSH 07/07/25 11:43 Not Given ONCE ONE Methylprednisolone Sodium Succinate 60 mg 07/07/25 10:37 07/07/25 10:57 Methylprednisolone Sod Succ 125 Mg/2 Ml Vial IVPUSH 07/07/25 10:38 60 mg ONCE ONE Administration Medical Decision Making Medical Decision Making [facility] Narrative: 55-year-old female with past medical history of hypertension, hyperlipidemia, diabetes, asthma not on home O2, she notes she has been sick for the last 1+ weeks with cough, sputum, wheezing, fevers, chill with known COVID diagnosis on July 01 here with worsening asthma, chest pain, shortness of breath, overall not feeling well. At this time I have ordered empiric Levaquin based off her recent hotel stay, D-dimer, EKG, labs, blood cultures. She failed outpatient therapy over the past week she will likely be admitted to the hospital. I have started her on ideal body weight 30 cc/kilos bolus of LR. Differential Diagnosis Differential Diagnoses: The differential diagnosis associated with the presentation includes Asthma, pneumonia, [id number] pulmonary embolus given recent COVID diagnosis we will obtain D-dimer Admission/Observation Consideration of admission/observation: Escalation of care including admission/observation considered Given recurrent visits and outpatient steroids, antibiotics she would benefit from inpatient stay for her COVID related asthma exacerbation Consult Healthcare Provider Management of the patient was discussed with: Hospitalist (Will admit) Lab Data [facility] Lab Attestation statement: I reviewed the patient's lab results. Suspect PH is not related to CO2 but more mixed metabolic/ respiratory she is awake alert not labored at this time I do not think she needs NIPPV She has lactic acidosis She has JULIO D-dimer is negative she was low to moderate we will avoid CT at this time she has no profound hypoxia 07/07/25 11:02 07/07/25 11:02 Labs: Lab Results 07/07/25 07/07/25 07/07/25 Range/Units 11:01 11:02 11:10 WBC 7.0 (4.8-10.8) X10*3/uL RBC 3.98 L (4.20-5.50) X10*6/uL Hgb 10.5 L (12.0-16.0) g/dl Hct 31.6 L (37.0-47.0) % MCV 79.4 L (80.0-98.0) fL MCH 26.4 L (27.0-33.0) pg MCHC 33.2 (31.0-35.0) g/dl RDW 12.9 (11.0-16.0) % Plt Count 171 (160-400) X10*3/uL MPV 11.4 (9.4-12.3) fL Immature Gran % (Auto) 0.7 H (0.0-0.4) % Neut % (Auto) 61.6 (45-73) % Lymph % (Auto) 29.3 (20-40) % [place] % (Auto) 7.4 (2-11) % Eos % (Auto) 0.7 (0-4) % Baso % (Auto) 0.3 (0-2) % Lymph # (Auto) 2.1 (1.2-4.9) X10*3/uL [place] # (Auto) 0.5 (0.1-1.2) X10*3/uL Eos # (Auto) 0.1 (0.0-0.4) X10*3/uL Baso # (Auto) 0.0 (0.0-0.2) X10*3/uL Abs Immat Gran (auto) 0.05 H (0.00-0.03) X10*3/uL Absolute Neuts (auto) 4.3 (2.0-8.3) x10*3/uL Absolute Nucleated RBC 0.000 (0.0-0.012) X10*3/uL Nucleated RBC % (auto) 0.0 (0.0-0.2) /100WBC D-Dimer High Sensitivty NG/ML VBG pH 7.27 L (7.32-7.43) VBG pCO2 54 mmHg VBG pO2 43 mmHg VBG HCO3 25 (22-26) mmol/L VBG O2 Saturation 63.0 % VBG Base Excess -2.2 mmol/L Sodium 130 L (135-145) mmol/L Potassium 3.4 (3.3-5.1) mmol/L Chloride 97 (96-108) mmol/L Carbon Dioxide 25 (22-29) mmol/L Anion Gap 11 L (12-20) BUN 40 H (9-16) mg/dL Creatinine 2.12 H (0.5-1.4) mg/dL Estim Creat Clear Calc 30.1 Estimated GFR 24 POC Glucose (60-115) mg/dL Random Glucose 421 H* (60-115) mg/dL Lactic Acid 2.5 H* (0.5-2.0) mmol/L Calcium 8.2 L (8.4-10.2) mg/dL Magnesium 2.1 (1.6-2.6) mg/dL Total Bilirubin 0.4 (0.0-1.0) mg/dL Direct Bilirubin 0.1 (0.0-0.5) mg/dL AST 13 (5-31) U/L ALT 10 (0-31) U/L Alkaline Phosphatase 135 H (39-117) U/L Lactate Dehydrogenase 123 (122-220) U/L Troponin I High Sens < 2.7 (<3.5-17.0) ng/L C-Reactive Protein 3.46 H (< or = 0.50) mg/dL Total Protein 6.4 L (6.5-8.0) g/dL Albumin 3.8 (3.5-5.0) g/dL Lipase 27 (8-78) U/L Procalcitonin 0.17 ng/mL Influenza Type A (PCR) NEGATIVE (Negative) Influenza Type B (PCR) NEGATIVE (Negative) RSV RNA Qual (PCR) NEGATIVE (Negative) SARS-CoV-2 RNA (RT-PCR) POSITIVE A (Negative) 07/07/25 07/07/25 07/07/25 Range/Units 11:56 12:01 12:59 WBC (4.8-10.8) X10*3/uL RBC (4.20-5.50) X10*6/uL Hgb (12.0-16.0) g/dl Hct (37.0-47.0) % MCV (80.0-98.0) fL MCH (27.0-33.0) pg MCHC (31.0-35.0) g/dl RDW (11.0-16.0) % Plt Count (160-400) X10*3/uL MPV (9.4-12.3) fL Immature Gran % (Auto) (0.0-0.4) % Neut % (Auto) (45-73) % Lymph % (Auto) (20-40) % [place] % (Auto) (2-11) % Eos % (Auto) (0-4) % Baso % (Auto) (0-2) % Lymph # (Auto) (1.2-4.9) X10*3/uL [place] # (Auto) (0.1-1.2) X10*3/uL Eos # (Auto) (0.0-0.4) X10*3/uL Baso # (Auto) (0.0-0.2) X10*3/uL Abs Immat Gran (auto) (0.00-0.03) X10*3/uL Absolute Neuts (auto) (2.0-8.3) x10*3/uL Absolute Nucleated RBC (0.0-0.012) X10*3/uL Nucleated RBC % (auto) (0.0-0.2) /100WBC D-Dimer High Sensitivty < 150 NG/ML VBG pH 7.32 (7.32-7.43) VBG pCO2 49 mmHg VBG pO2 53 mmHg VBG HCO3 25 (22-26) mmol/L VBG O2 Saturation 81.0 % VBG Base Excess -0.6 mmol/L Sodium (135-145) mmol/L Potassium (3.3-5.1) mmol/L Chloride (96-108) mmol/L Carbon Dioxide (22-29) mmol/L Anion Gap (12-20) BUN (9-16) mg/dL Creatinine (0.5-1.4) mg/dL Estim Creat Clear Calc Estimated GFR POC Glucose 317 H (60-115) mg/dL Random Glucose (60-115) mg/dL Lactic Acid (0.5-2.0) mmol/L Calcium (8.4-10.2) mg/dL Magnesium (1.6-2.6) mg/dL Total Bilirubin (0.0-1.0) mg/dL Direct Bilirubin (0.0-0.5) mg/dL AST (5-31) U/L ALT (0-31) U/L Alkaline Phosphatase (39-117) U/L Lactate Dehydrogenase (122-220) U/L Troponin I High Sens (<3.5-17.0) ng/L C-Reactive Protein (< or = 0.50) mg/dL Total Protein (6.5-8.0) g/dL Albumin (3.5-5.0) g/dL Lipase (8-78) U/L Procalcitonin ng/mL Influenza Type A (PCR) (Negative) Influenza Type B (PCR) (Negative) RSV RNA Qual (PCR) (Negative) SARS-CoV-2 RNA (RT-PCR) (Negative) Independent Interpretation I performed an independent interpretation of an: EKG and Plain X-Ray Interpretation: Rate: 75 Rhythm: Normal sinus rhythm, LVH [place]: Left Normal P waves. Normal OBI. Normal QRS complex. ST T wave : Inverted T-waves in lead III, no ST-elevation qTC: 457 prior studies: No acute ischemia The study has been interpreted contemporaneously by me. . Radiology Impression Discussion of test interpretation with radiology: I have reviewed the radiologist's reading. Independent Historian Clinical information obtained from an independent historian. History obtained from or confirmed by: EMS External Record Review External record reviewed: Inpatient record, Outpatient record and Prior outpatient labs Critical Care Time Critical Care Time Critical Care Time: Yes Total Critical Care Time: 45 Attestation: Time is exclusive of separately billable procedures. Time includes: direct patient care, patient reassessment, coordination of patient care, interpretation of data (laboratory data, pulse oximetry, venous blood gases and chest xrays), review of patient's medical records, medical consultation and documentation of patient care. Repeat labs, IV fluid resuscitation, IV magnesium for respiratory distress Procedures excluded from critical care time: electrocardiography. I attest to this time spent taking care of the patient Discharge Plan Discharge Clinical Impression: JULIO (acute kidney injury), COVID-19, Acute hyperglycemia Asthma with acute exacerbation Qualifiers: Asthma severity: moderate Asthma persistence: persistent Qualified Code(s): J 45.41 - Moderate persistent asthma with (acute) exacerbation Patient Disposition: Admitted As Inpatient Print Language: Solomon Islander
[2025-07-07] MEDS: Lactated Ringers 1,000 ML 999 ML IV (10:58)
--- NOTE | 2025-07-07 10:59 | PC.NURSE ---
Per provider patient needs x 2 liters of fluid. Provider aware that patient received x 1 liters of NS that were hung but EMS. Provider stating to just hand x 1 liter LR
[2025-07-07] MEDS: Albuterol Sulfate 2.5 MG, Albuterol/Iprat 2.5/0.5MG 3 ML 3 ML INHALE (11:11)
[2025-07-07 11:13] LABS: Venous Blood Gas Refer to POC result
[2025-07-07 11:13] LABS: Hematocrit 31.6 % (37.0-47.0); Hemoglobin 10.5 g/dl (12.0-16.0); Imm Gran Abs Auto 0.05 X10*3/uL (0.00-0.03); Imm Gran Pct Auto 0.7 % (0.0-0.4); Lymphocytes Absolute Auto 2.1 X10*3/uL (1.2-4.9); MANUAL DIFF FLAG NO; Mean Corpuscular HGB Conc 33.2 g/dl (31.0-35.0); Mean Corpuscular Hemoglobin 26.4 pg (27.0-33.0); Mean Corpuscular Volume 79.4 fL (80.0-98.0); NRBC Abs Auto 0.000 X10*3/uL (0.0-0.012); NRBC Pct Auto 0.0 /100WBC (0.0-0.2); Platelet Count 171 X10*3/uL (160-400); Red Blood Count 3.98 X10*6/uL (4.20-5.50); White Blood Count 7.0 X10*3/uL (4.8-10.8)
[2025-07-07 11:14] LABS: VBG HCO3 25 mmol/L (22-26); VBG O2 % Saturation 63.0 %
--- OUTSIDE RECORDS SUMMARY | 2025-07-07 11:36 | XMS_ITS | Encounter Summary ---
Author Organization [id number] Address [address] [facility] [address] [place] [address] Care Team Providers Care Pc Tech Name Role Phone Marilu Reynoso ALCOHOLIC COUNSELOR Primary Care Provider [phone] Raissa To PharmD Unavailable [phone] Irina Barragan RN Unavailable Unavailable Alexus Alvarez Unavailable Dariela Alvarez RN Unavailable [phone] Reason for Visit * Reason Comments Med Refill Encounter Details Date Type Department Care Team (Late st Contact Info) Description 12/26/2024 Refill [facility] [address] [place], [place] [phone] Laurence Parrish MD [address] [place], [place] [phone] Adhesive capsulitis of left shoulder Social History [...] Description 08/16/2025 11:30 AM EST Office Visit [facility] [address] [place] [phone] Marilu Reynoso FNP [address] [place] [address] documented as of this encounter Visit Diagnoses Diagnosis Adhesive capsulitis of left shoulder documented in this encounter Additional Health Concerns Assessment Noted Time PHQ-9 Depression Total Score: 7 11/22/19 25 3:30 PM EDT documented as of this encounter Care Teams Pc Tech Relationship Specialty Start Date End Date Marilu Reynoso FNP [address] [place] [phone] PCP - General Family Medicine 01/02/22 Raissa To, PharmD [address] [place] [address] Pharmacist Internal Medicine 06/17/24 Irina Barragan, GERMANIA [address] [place] [address] Registered Nurse Family Medicine 01/02/25 04/24/25 Alexus Alvarez 01/02/25 05/08/25 Dariela Alvarez, GERMANIA [address] [place] [phone] Registered Nurse Family Medicine 04/24/25 05/08/25 documented as of this encounter
--- OUTSIDE RECORDS SUMMARY | 2025-07-07 11:36 | XMS_ITS | Encounter Summary ---
Author Organization [employer] Address [address] [facility] 7[address] [place] [address] Care Team Providers Care Malt House Kiln Operator Name Role Phone Marilu Reynoso CRUSHING MILL OPERATOR Primary Care Provider [phone] Raissa To PharmD Unavailable [phone] Irina Barragan RN Unavailable Unavailable Alexus Alvarez Unavailable Dariela Alvarez RN Unavailable [phone] Encounter Details Date Type Department Care Team (Late st Contact Info) Description 11/10/2024 Orders Only [facility] [address] [place], [place] [phone] Leighann Tran NP [address] [place], [place] [phone] Bacterial vaginosis (Primary Dx) Social History Tobacco [...] Description 08/16/2025 11:30 AM EST Office Visit [facility] [address] [place] [address] [facility] [address] [place] [address] documented as of this encounter Visit Diagnoses Diagnosis Bacterial vaginosis- Primary Unspecified vaginitis and vulvovaginitis documented in this encounter Additional Health Concerns Assessment Noted Time PHQ-9 Depression Total Score: 9 07/18/20 24 1:40 PM EST documented as of this encounter Care Teams Malt House Kiln Operator Relationship Specialty Start Date End Date Marilu Reynoso [facility] [address] [place] [phone] PCP - General Family Medicine 01/02/22 Raissa To, PharmD [address] [place] [address] Pharmacist Internal Medicine 06/17/24 Irina Barragan, RN [address] [place] [address] Registered Nurse Family Medicine 01/02/25 04/24/25 Alexus Alvarez 01/02/25 05/08/25 Dariela Alvarez, GERMANIA [address] [place] [phone] Registered Nurse Family Medicine 04/24/25 05/08/25 documented as of this encounter
--- OUTSIDE RECORDS SUMMARY | 2025-07-07 11:36 | XMS_ITS | Encounter Summary ---
Author Organization [employer] Address [address] [facility] [address] [place] [address] Care Team Providers Care Information Systems Supervisor Name Role Phone Marilu Reynoso WRAPPER STRIPPER Primary Care Provider [phone] Raissa To PharmD Unavailable [phone] Irina Barragan RN Unavailable Unavailable Alexus Alvarez Unavailable Dariela Alvarez RN Unavailable [phone] Reason for Referral * Consultation (Routine) - Closed Specialty Diagnoses / Procedures Referred By Shane t Referred To Contact Pharmacy Diagnoses Type 2 diabetes mellitus with hyperglycemia, with long-term current use of insulin (HCC) Genesis Peacock MD [address] [place] [address] Phone: tel: fax: Referral ID Status Reason Start Date Expiration Date V isits Requested Visits Authorized [id number] Closed Consult and Treat 06/19/2024 06/19/2025 6 6 Encounter Details Date Type Department Care Team (Late st Contact Info) Description 06/19/[address] [facility] [address] [place], [place] [phone] Genesis Peacock MD [address] [place], [place] [phone] Type 2 diabetes mellitus with hyperglycemia, with [...] Upcoming Encounters Date Type Department Care Team ([facility] st Contact Info) Description 08/16/2025 11:30 AM EST Office Visit [facility] [address] [place] [address] [facility] [address] [place] [phone] Scheduled Referrals Name Type Priority Associated Diagnoses Orde r Schedule Referral to Pharmacy CDTM Outpatient Referral Routine Type 2 diabetes mellitus with hyperglycemia, with long-term current use of insulin ([facility]/HCC) Ordered: 06/19/2024 documented as of this encounter Visit Diagnoses Diagnosis Type 2 diabetes mellitus with hyperglycemia, with long-term current use of insulin ([facility])- Primary documented in this encounter Additional Health Concerns Assessment Noted Time PHQ-9 Depression Total Score: 24 024 11:18 AM EDT documented as of this encounter Care Teams Information Systems Supervisor Relationship Specialty Start Date End Date Marilu Reynoso FNP [address] [place] [phone] PCP - General Family Medicine 01/02/22 Raissa To, Rafia [address] [place] [phone] Pharmacist Internal Medicine 06/17/24 Irina Barragan, GERMANIA [address] [place] [phone] Registered Nurse Family Medicine 01/02/25 04/24/25 Alexus Alvarez 01/02/25 05/08/25 Dariela Alvarez, GERMANIA [address] [place] [phone] Registered Nurse Family Medicine 04/24/25 05/08/25 Lisset Varner Plane Captain 04/08/24 07/08/24 documented as of this encounter
--- OUTSIDE RECORDS SUMMARY | 2025-07-07 11:36 | XMS_ITS | Encounter Summary ---
Author Organization [employer] Address 75 [facility] 7t [place] [address] Care Team Providers Care Residential Mortgage Underwriter Name Role Phone [facility] Primary Care Provider [phone] Raissa To PharmD Unavailable [phone] Irina Barragan RN Unavailable Unavailable Alexus Alvarez Unavailable Dariela Alvarez RN Unavailable [phone] Reason for Visit * Reason Comments Med Refill Encounter Details Date Type Department Care Team (Late st Contact Info) Description 01/20/2024 Refill [facility] [address] [place], [place] [phone] [place] 230 [place], [place] [phone] Thoracic back pain, unspecified back pain laterality, [...] Description 08/16/2025 11:30 AM EST Office Visit [facility] [address] [place] [address] Marilu Reynoso [facility] 230 [place] [address] documented as of this encounter Visit Diagnoses Diagnosis Thoracic back pain, unspecified back pain laterality, unspecified chronicity documented in this encounter Additional Health Concerns Assessment Noted Time PHQ-9 Depression Total Score: 16 023 12:28 PM EST documented as of this encounter Care Teams Residential Mortgage Underwriter Relationship Specialty Start Date End Date Marilu Reynoso FNP [address] [place] [address] PCP - General Family Medicine 01/02/22 Raissa To, Rafia [address] [place] [address] Pharmacist Internal Medicine 06/17/24 Irina Barragan, GERMANIA [address] [place] [address] [place] [address] Registered Nurse Family Medicine 01/02/25 04/24/25 Alexus Alvarez 01/02/25 05/08/25 Dariela Alvarez, GERMANIA [address] [place] [address] Registered Nurse Family Medicine 04/24/25 05/08/25 Lisset Varner Manager Laboratory 04/08/24 07/08/24 documented as of this encounter
--- OUTSIDE RECORDS SUMMARY | 2025-07-07 11:36 | XMS_ITS | Encounter Summary ---
Author Organization [employer] Address 75 [facility] 7t [place] [address] Care Team Providers Care Supervisor Treating And Pumping Name Role Phone Marilu Reynoso STEAM CLEAN MACHINE OPERATOR Primary Care Provider [phone] Raissa To PharmD Unavailable [phone] Irina Barragan RN Unavailable Unavailable Alexus Alvarez Unavailable Dariela Alvarez RN Unavailable [phone] Reason for Visit * Reason Comments Med Refill Encounter Details Date Type Department Care Team (Late st Contact Info) Description 06/08/2023 Telephone [facility] MEDICINE 230 [place], [place] [phone] NameLexx MD [address] [place], [place] [phone] Med Refill Social History Tobacco Use Types [...] the past 12 months, has t he [employer], gas, oil or water company threatened to [...] Description 08/16/2025 11:30 AM EST Office Visit [facility] MEDICINE 230 [place] [address] Marilu Reynoso FNP 230 [place] [address] documented as of this encounter Visit Diagnoses Diagnosis Essential hypertension Unspecified essential hypertension documented in this encounter Additional Health Concerns Assessment Noted Time PHQ-9 Depression Total Score: 16 07/ 023 1:53 PM EDT documented as of this encounter Care Teams Supervisor Treating And Pumping Relationship Specialty Start Date End Date [place] Marilu, STEAM CLEAN MACHINE OPERATOR 230 [place] [address] PCP - General Family Medicine 01/02/22 Raissa To PharmD 230 [place] [address] Pharmacist Internal Medicine 06/17/24 Irina Barragan, GERMANIA [address] [place] [address] Registered Nurse Family Medicine 01/02/25 04/24/25 Alexus Alvarez 01/02/25 05/08/25 Dariela Alvarez, GERMANIA [address] [place] [address] Registered Nurse Family Medicine 04/24/25 05/08/25 Lisset Varner Baby Sitter 04/08/24 07/08/24 documented as of this encounter
--- OUTSIDE RECORDS SUMMARY | 2025-07-07 11:36 | XMS_ITS | Encounter Summary ---
Author Organization [employer] Address [address] [facility] 7t [place] [address] Care Team Providers Care Mid Level Net Developer Name Role Phone Marilu Reynoso [facility] Primary Care Provider Raissa To PharmD Unavailable [phone] Irina Barragan RN Unavailable Unavailable Alexus Alvarez Unavailable Dariela Alvarez RN Unavailable [phone] Reason for Visit * Reason Onset Date Comments Appointment 10/21/2022 Encounter Details Date Type Department Care Team (Late st Contact Info) Description 10/21/2022 Telephone [facility] ADULT [facility] 230 [place], [place] [phone] Luiz Moody DDS 230 [place], [place] [phone] Appointment Social History Tobacco Use Types Packs/Day [...] In the last 10 days, have yo mary been in contact with someone who was confirmed or suspected to have Coronavirus/COVID-19? No / Unsure 10/23/2022 12:48 PM EST documented as of this encounter Miscellaneous Notes * Telephone Encounter - Liliana Guy - 10/22/2022 2:09 PM EST Patient accepted to come in tomorrow for 1pm DR * Telephone Encounter - Liliana Guy [...] Description 08/16/2025 11:30 AM EST Office Visit [facility] [address] [place] [address] [facility] 230 [place] [address] documented as of this encounter Visit Diagnoses Not on filedocumented in this encounter Care Teams Mid Level Net Developer Relationship Specialty Start Date End Date [facility] [address] [place] [address] PCP - General Family Medicine 01/02/22 Raissa To PharmD [address] [place] [address] Pharmacist Internal Medicine 06/17/24 Irina Barragan RN 230 [place] [address] Registered Nurse Family Medicine 01/02/25 04/24/25 Alexus Alvarez 01/02/25 05/08/25 Dariela Alvarez RN [address] [place] [address] Registered Nurse Family Medicine 04/24/25 05/08/25 Lisset Varner Field Broomer 04/08/24 07/08/24 documented as of this encounter
--- OUTSIDE RECORDS SUMMARY | 2025-07-07 11:36 | XMS_ITS | Encounter Summary ---
Author Organization [employer] Address [address] [facility] [address] 7t [place] [address] Care Team Providers Care Addressing Machine Operator Name Role Phone Marilu Reynoso PRINTED CIRCUIT BOARD DESIGNER Primary Care Provider [phone] Raissa To PharmD Unavailable [phone] Irina Barragan RN Unavailable Unavailable Alexus Alvarez Unavailable Dariela Alvarez RN Unavailable [phone] Reason for Visit * Reason Comments Med Refill Encounter Details Date Type Department Care Team (Late st Contact Info) Description 02/23/2025 Refill [facility] 230 [place], [place] [phone] Laurence Parrish MD 230 [place], [place] [phone] Chronic major depressive disorder, recurrent episode (CMS/HCC) [...] Description 08/16/2025 11:30 AM EST Office Visit [facility] MEDICINE 230 [place] [address] Marilu Reynoso [facility] 230 [place] [address] documented as of this encounter Visit Diagnoses Diagnosis Chronic major depressive disorder, recurrent episode (CMS/HCC) documented in this encounter Additional Health Concerns Assessment Noted Time PHQ-9 Depression Total Score: 0 02/09/20 25 2:59 PM EDT documented as of this encounter Care Teams Addressing Machine Operator Relationship Specialty Start Date End Date Marilu Reynoso FNP 230 [place] [address] PCP - General Family Medicine 01/02/22 Raissa To, PharmD [address] [place] [address] Pharmacist Internal Medicine 06/17/24 Irina Barragan, GERMANIA [address] [place] [address] Registered Nurse Family Medicine 01/02/25 04/24/25 Alexus Alvarez 01/02/25 05/08/25 Dariela Alvarez, GERMANIA [address] [place] [address] Registered Nurse Family Medicine 04/24/25 05/08/25 documented as of this encounter
--- OUTSIDE RECORDS SUMMARY | 2025-07-07 11:36 | XMS_ITS | Encounter Summary ---
Author Organization [employer] Address [address] [facility] [address] 7t [place] [address] Care Team Providers Care Director Vaccine Name Role Phone Marilu Reynoso DIGITAL PRINTER OPERATOR Primary Care Provider [phone] Raissa To PharmD Unavailable [phone] Irina Barragan RN Unavailable Unavailable Alexus Alvarez Unavailable Dariela Alvarez RN Unavailable [phone] Reason for Visit * Reason Comments Med Refill Encounter Details Date Type Department Care Team (Late st Contact Info) Description 03/06/2025 Refill [facility] 230 [place], [place] [phone] Laurence Parrish MD 230 [place], [place] [phone] Chronic major depressive disorder, recurrent episode (CMS/HCC) [...] Description 08/16/2025 11:30 AM EST Office Visit [facility] 230 [place] [address] Marilu Reynoso [facility] 230 [place] [address] documented as of this encounter Visit Diagnoses Diagnosis Chronic major depressive disorder, recurrent episode (CMS/HCC) documented in this encounter Additional Health Concerns Assessment Noted Time PHQ-9 Depression Total Score: 0 02/09/20 25 2:59 PM EDT documented as of this encounter Care Teams Director Vaccine Relationship Specialty Start Date End Date Marilu Reynoso FNP 230 [place] [address] PCP - General Family Medicine 01/02/22 Raissa To, PharmD 230 [place] [address] Pharmacist Internal Medicine 06/17/24 Irina Barragan, GERMANIA 230 [place] [address] Registered Nurse Family Medicine 01/02/25 04/24/25 Alexus Alvarez 01/02/25 05/08/25 Dariela Alvarez, GERMANIA [address] [place] [address] Registered Nurse Family Medicine 04/24/25 05/08/25 documented as of this encounter
--- OUTSIDE RECORDS SUMMARY | 2025-07-07 11:36 | XMS_ITS | Encounter Summary ---
Author Organization [employer] Address [address] [facility] [address] 7t [place] [address] Care Team Providers Care Mechanical Inspector Name Role Phone Marilu Reynoso BUSINESS SYSTEMS CONSULTANT Primary Care Provider [phone] Raissa To PharmD Unavailable [phone] Irina Barragan RN Unavailable Unavailable Alexus Alvarez Unavailable Dariela Alvarez RN Unavailable [phone] Encounter Details Date Type Department Care Team (Late st Contact Info) Description 11/25/2023 Orders Only [facility] MEDICINE 230 [place] [address] ProviderYessenia MD Social History Tobacco Use Types Packs/Day Years [...] Description 08/16/2025 11:30 AM EST Office Visit [facility] MED[facility]INE 230 [place] [address] Marilu Reynoso FNP 230 [place] [address] documented as of this encounter Procedures Procedure [...] documented as of this encounter Care Teams Mechanical Inspector Relationship Specialty Start Date End Date Marilu Reynoso FNP [address] [place] [address] PCP - General Family Medicine 01/02/22 Raissa To, Rafia [address] [place] [address] Pharmacist Internal Medicine 06/17/24 Irina Barragan, GERMANIA 230 [place] [address] Registered Nurse Family Medicine 01/02/25 04/24/25 Alexus Alvarez 01/02/25 05/08/25 Dariela Alvarez RN [address] [place] [address] Registered Nurse Family Medicine 04/24/25 05/08/25 Lisset Varner Felting Machine Operator 04/08/24 07/08/24 documented as of this encounter
--- OUTSIDE RECORDS SUMMARY | 2025-07-07 11:36 | XMS_ITS | Encounter Summary ---
Author Organization [employer] Address 75 [facility] 7t [place] [address] Care Team Providers Care Distribution Manager Name Role Phone [facility] Primary Care Provider [phone] Raissa To PharmD Unavailable [phone] Irina Barragan RN Unavailable Unavailable Alexus Alvarez Unavailable Dariela Alvarez RN Unavailable [phone] Reason for Visit * Reason Comments Med Refill Encounter Details Date Type Department Care Team (Late st Contact Info) Description 01/20/2025 Refill [facility] MEDICINE 230 [place], [place] [phone] [facility] 230 [place], [place] [phone] Severe persistent asthma without complication; Severe persistent [...] Description 08/16/2025 11:30 AM EST Office Visit [facility] MEDICINE 230 [place] [address] [facility] 230 [place] [address] documented as of this encounter Visit Diagnoses Diagnosis Severe persistent asthma without complication (HCC) Severe persistent asthma, unspecified whether complicated (HCC) documented in this encounter Additional Health Concerns Assessment Noted Time PHQ-9 Depression Total Score: 7 11/22/19 25 3:30 PM EDT documented as of this encounter Care Teams Distribution Manager Relationship Specialty Start Date End Date Marilu Reynoso FNP [address] [place] [address] PCP - General Family Medicine 01/02/22 Raissa To, ConsueloD 230 [place] [address] Pharmacist Internal Medicine 06/17/24 Irina Barragan, GERMANIA 230 [place] [address] Registered Nurse Family Medicine 01/02/25 04/24/25 Alexus Alvarez 01/02/25 05/08/25 Dariela Alvarez, GERMANIA [address] [place] [address] Registered Nurse Family Medicine 04/24/25 05/08/25 documented as of this encounter
--- OUTSIDE RECORDS SUMMARY | 2025-07-07 11:36 | XMS_ITS | Encounter Summary ---
Author Organization [employer] Address 75 [facility] 7t [place] [address] Care Team Providers Care Talent Development Director Name Role Phone [facility] Primary Care Provider [phone] Raissa To PharmD Unavailable [phone] Irina Barragan RN Unavailable Unavailable Alexus Alvarez Unavailable Dariela Alvarez RN Unavailable [phone] Encounter Details Date Type Department Care Team (Late st Contact Info) Description 06/10/2023 Abstract [facility] MEDICINE 230 [place], [place] [phone] [place] Marilu [facility] 230 [place], [place] [phone] Social History Tobacco Use Types Packs/Day Years [...] Description 08/16/2025 11:30 AM EST Office Visit [facility] MEDICINE [address] [place] [address] [address] documented as of this encounter Visit Diagnoses Not on filedocumented in this encounter Additional Health Concerns Assessment Noted Time PHQ-9 Depression Total Score: 16 023 1:53 PM EDT documented as of this encounter Care Teams Talent Development Director Relationship Specialty Start Date End Date [place] Marilu [facility] [address] [place] [address] PCP - General Family Medicine 01/02/22 Raissa To, ConsueloD [address] [place] [address] Pharmacist Internal Medicine 06/17/24 Irina Barragan RN 230 [place] [address] Registered Nurse Family Medicine 01/02/25 04/24/25 Alexus Alvarez 01/02/25 05/08/25 Dariela Alvarez RN [address] [place] [address] Registered Nurse Family Medicine 04/24/25 05/08/25 Lisset Varner Diesel Plant Operator 04/08/24 07/08/24 documented as of this encounter
--- OUTSIDE RECORDS SUMMARY | 2025-07-07 11:36 | XMS_ITS | Encounter Summary ---
Author Organization [employer] Address [address] [facility] [address] 7t [place] [address] Care Team Providers Care Area Field Person Name Role Phone Marilu Reynoso CODING QUALITY COORDINATOR Primary Care Provider [phone] Raissa To PharmD Unavailable [phone] Irina Barragan RN Unavailable Unavailable Alexus Alvarez Unavailable Dariela Alvarez RN Unavailable [phone] Reason for Visit * Reason Onset Date Comments case back from lab?? 03/23/2024 Encounter Details Date Type Department Care Team (Late st Contact Info) Description 03/23/2024 Telephone [facility] ADULT DENTAL 230 [place], [place] [phone] Luiz Moody DDS 230 [place], [place] [phone] case back from lab?? Social History Tobacco [...] . Pls reach out to patient DR Kassandra signed by Liliana Guy at 03/23/2024 10:58 AM EDT documented in this encounter Plan of Treatment Upcoming Encounters Date Type Department Care Team (Late st Contact Info) Description 08/16/2025 11:30 AM EST Office Visit [facility] MEDICINE 230 [place] [address] [facility] 230 [place] [address] documented as of this encounter Visit Diagnoses Not on filedocumented in this encounter Additional Health Concerns Assessment Noted Time PHQ-9 Depression Total Score: 24 024 11:18 AM EDT documented as of this encounter Care Teams Area Field Person Relationship Specialty Start Date End Date Marilu Reynoso, CODING QUALITY COORDINATOR 230 [place] [address] PCP - General Family Medicine 01/02/22 Raissa To PharmD 230 [place] [address] Pharmacist Internal Medicine 06/17/24 Irina Barragan, GERMANIA 230 [place] [address] Registered Nurse Family Medicine 01/02/25 04/24/25 Alexus Alvarez 01/02/25 05/08/25 Dariela Alvarez, GERMANIA [address] [place] [address] Registered Nurse Family Medicine 04/24/25 05/08/25 Lisset Varner Director Of Planning 04/08/24 07/08/24 documented as of this encounter
--- OUTSIDE RECORDS SUMMARY | 2025-07-07 11:36 | XMS_ITS | Encounter Summary ---
Author Organization [employer] Address 75 [facility] 7t [place] [address] Care Team Providers Care Business Support Liaison Name Role Phone [facility] Primary Care Provider [phone] Raissa To PharmD Unavailable [phone] Irina Barragan RN Unavailable Unavailable Alexus Alvarez Unavailable Dariela Alvarez RN Unavailable [phone] Reason for Visit * Reason Onset Date Comments Results 09/11/2023 Encounter Details Date Type Department Care Team (Late st Contact Info) Description 09/11/[address] [facility] MEDICINE 230 [place], [place] [phone] [facility] 230 [place], [place] [phone] Results Social History Tobacco Use Types Packs/Day [...] 08/16/2025 11:30 AM EST Office Visit [facility] MEDICINE 230 [place] [address] Marilu Reynoso FNP 230 [place] [address] documented as of this encounter Visit Diagnoses Not on filedocumented in this encounter Additional Health Concerns Assessment Noted Time PHQ-9 Depression Total Score: 16 023 12:28 PM EST documented as of this encounter Care Teams Business Support Liaison Relationship Specialty Start Date End Date Marilu Reynoso FNP 230 [place] [address] PCP - General Family Medicine 01/02/22 Raissa To PharmD [address] [place] [address] Pharmacist Internal Medicine 06/17/24 Irina Barragan, GERMANIA [address] [place] [address] Registered Nurse Family Medicine 01/02/25 04/24/25 Alexus Alvarez 01/02/25 05/08/25 Dariela Alvarez, GERMANIA [address] [place] [address] Registered Nurse Family Medicine 04/24/25 05/08/25 Lisset Varner Independent Video Producer 04/08/24 07/08/24 documented as of this encounter
--- OUTSIDE RECORDS SUMMARY | 2025-07-07 11:36 | XMS_ITS | Encounter Summary ---
Author Organization [employer] Address 75 [facility] 7t [place] [address] Care Team Providers Care Hospice Manager Name Role Phone [facility] Primary Care Provider [phone] Raissa To PharmD Unavailable [phone] Irina Barragan RN Unavailable Unavailable Alexus Alvarez Unavailable Dariela Alvarez RN Unavailable [phone] Reason for Visit * Reason Onset Date Comments Results 11/09/2024 Encounter Details Date Type Department Care Team (Late st Contact Info) Description 11/09/2024 Telephone [facility] MEDICINE 230 [place], [place] [phone] [place] [facility] 230 [place], [place] [phone] Results Social History Tobacco Use Types Packs/Day [...] Description 08/16/2025 11:30 AM EST Office Visit [facility] MEDICINE 230 [place] [address] Marilu Reynoso FNP 230 [place] [address] documented as of this encounter Visit Diagnoses Not on filedocumented in this encounter Additional Health Concerns Assessment Noted Time PHQ-9 Depression Total Score: 9 07/18/20 24 1:40 PM EST documented as of this encounter Care Teams Hospice Manager Relationship Specialty Start Date End Date Marilu Reynoso FNP 230 [place] [address] PCP - General Family Medicine 01/02/22 Raissa To PharmD 230 [place] [address] Pharmacist Internal Medicine 06/17/24 Irina Barragan, GERMANIA [address] [place] [address] Registered Nurse Family Medicine 01/02/25 04/24/25 Alexus Alvarez 01/02/25 05/08/25 Dariela Alvarez, GERMANIA [address] [place] [address] Registered Nurse Family Medicine 04/24/25 05/08/25 documented as of this encounter
--- OUTSIDE RECORDS SUMMARY | 2025-07-07 11:37 | XMS_ITS | Encounter Summary ---
Author Organization [employer] Address [address] [facility] [address] 7t [place] [address] Care Team Providers Care Row Boss Hoeing Name Role Phone Marilu Reynoso SINGER BACK TENDER Primary Care Provider [phone] Raissa To PharmD Unavailable [phone] Irina Barragan RN Unavailable Unavailable Alexus Alvarez Unavailable Dariela Alvarez RN Unavailable [phone] Encounter Details Date Type Department Care Team (Late st Contact Info) Description 07/14/2023 Abstract [facility] MEDICINE 230 [place], [place] [phone] Shruthi Esparza Social History Tobacco Use Types [...] is your housing situation today? I have anmolmary reid 06/03/[address] you [...] Description 08/16/2025 11:30 AM EST Office Visit [facility] MEDICINE [address] [place] [address] [place] [address] [address] documented as of this encounter Visit Diagnoses Not on filedocumented in this encounter Additional Health Concerns Assessment Noted Time PHQ-9 Depression Total Score: 16 023 1:53 PM EDT documented as of this encounter Care Teams Row Boss Hoeing Relationship Specialty Start Date End Date [place] [facility] [address] [place] [address] PCP - General Family Medicine 01/02/22 Raissa To, ConsueloD [address] [place] [address] Pharmacist Internal Medicine 06/17/24 Irina Barragan RN [address] [place] [address] Registered Nurse Family Medicine 01/02/25 04/24/25 Alexus Alvarez 01/02/25 05/08/25 Dariela Alvarez RN [address] [place] [address] Registered Nurse Family Medicine 04/24/25 05/08/25 Lisset Varner Ammonia Refrigeration Technician 04/08/24 07/08/24 documented as of this encounter
--- OUTSIDE RECORDS SUMMARY | 2025-07-07 11:37 | XMS_ITS | Encounter Summary ---
Author Organization [employer] Address [address] [place] [address] Care Team Providers Care Go Go Dancer Name Role Phone [place], [facility] Primary Care Provider [phone] Raissa To PharmD Unavailable [phone] Reason for Visit * Reason Onset Date Comments Nurse Triage 07/07/2025 Encounter Details Date Type Department Care Team (Late st Contact Info) Description 07/07/2025 Telephone [facility] [address] [place], [place] [phone] [facility] [address] [place], [place] [phone] Nurse Triage Social History Tobacco Use Types [...] encounter Miscellaneous Notes * Telephone Encounter - Guillermina Feldman RN - 07/07/2025 10:20 AM EST Tc to pt to triage for c/o of difficulty breathing. Pt reports they went to the ED on 07/01/25 for asthma, shortness of breath. Pt reports they was given a 5 day supply if prednisone which they picked up medication on 07/02 and took their last dose yesterday. Pt reports they Pt reports that they took their medications this morning. Pt reports that they do not feel shortness of breath at rest na on ly when they're ambulating. Pt reports they saw their PCP on which they were prescribed azithromycin, breo ellipta, ventolin and prednisone. Pt denies fever,severe headaches, chills but states they feel tingling and noticed their hands shaking after the appointment. Pt reports 05/26 left sided chest pain radiating to their back. Pt report they do feel very anxious at this time and experiencing chest tightness. Pt also states they feel afraid in their home when their daughter is not there. Pt reports they feel safe right now and that their daughter is sleeping who is their primary personal financial counselor. Pt advised they should go to the ED to seek medical attention immediately due to their c/o of left sided chest pain. Pt advised if their daughter will be able to bring them and stated they don't want to wake them up. Decal Transferrer advised pt they should let their daughter know that they're going to the ED so that they're of where of their location. Pt reports they agree with plan but wanted web content writer to wait a couple minutes to call them so that they can get ready. Pt advised that they should lettheir daughter know they're going * Telephone Encounter - Nomi Mendiola - 07/07/2025 8:15 AM EST Symptom: Breathing Trouble Outcome: Schedule an urgent appointment (within 1 hour) or talk to a nurse or provider soon Reason: Caller denied all higher acuity questions The caller accepted this outcome. Contact pt at [phone] (chilean) documented in this encounter Plan of Treatment Upcoming Encounters Date Type Department Care Team (Late st Contact Info) Description 08/16/2025 11:30 AM EST Office Visit [facility] [address] [place] [address] Marilu Reynoso FNP [address] [place] [address] documented as of this encounter Goals Goal Patient Goal Type Associated Problems Recent Progress Patient-Stated? Author Help patients manage their type 2 diabetes Care Plan Help patients manage their type 2 diabetes Araceli Bower Weekly blood pressure task Care Plan Weekly blood pressure task No Araceli Appiah Help patients manage their type 2 diabetes Care Plan Help patients manage their type 2 diabetes Araceli Bower Patient has chronic kidney disease Care Plan Patient has chronic kidney disease Araceli Bower Weekly blood pressure task Care Plan Weekly blood pressure task No Araceli Appiah Patient has chronic kidney disease Care Plan Patient has chronic kidney disease Araceli Bower Weekly blood pressure task Care Plan Weekly blood pressure task No Krys Breaux FNP Weekly blood pressure task Care Plan Weekly blood pressure task No Okhipo Krys, REGULATORY SPECIALIST Patient has chronic kidney disease Care Plan Patient has chronic kidney disease No Okhipo Krys, REGULATORY SPECIALIST Patient has chronic kidney disease Care Plan Patient has chronic kidney disease No Okhipo Krys, REGULATORY SPECIALIST Weekly blood pressure task Care Plan Weekly blood pressure task No Nicole Pedroza RN Weekly blood pressure task Care Plan Weekly blood pressure task No Nicole Pedroza RN Patient has chronic kidney disease Care Plan Patient has chronic kidney disease No Nicole Pedroza RN Patient has chronic kidney disease Care Plan Patient has chronic kidney disease No Nicole Pedroza RN Weekly blood pressure task Care Plan Weekly blood pressure task No Cruz Hughes PharmJesus Weekly blood pressure task Care Plan Weekly blood pressure task No Cruz Hughes PharmD Patient has chronic kidney disease Care Plan Patient has chronic kidney disease No Cruz Hughes, PharmD Patient has chronic kidney disease Care [...] Care Plan Weekly blood pressure task No Nomi Navarrete Weekly blood pressure task Care Plan Weekly blood pressure task No Nomi Navarrete Patient has chronic kidney disease Care Plan Patient has chronic kidney disease No Nomi Navarrete Patient has chronic kidney disease Care Plan Patient has chronic kidney disease No Nomi Navarrete documented as of this encounter Visit Diagnoses Not on filedocumented in this encounter Additional Health Concerns Active [...] kidney disease 07/04/2025 Weekly blood pressure task 07/07/2025 Weekly blood pressure task 07/07/2025 Patient has chronic kidney disease 07/07/2025 Patient has chronic kidney disease 07/07/2025 Assessment Noted Time PHQ-9 Depression Total Score: 0 02/09/20 25 2:59 PM EDT documented as of this encounter Care Teams Go Go Dancer Relationship Specialty Start Date End Date [facility] [address] [place] [address] PCP - General Family Medicine 01/02/22 Raissa To PharmD [address] [place] [address] Pharmacist Internal Medicine 06/17/24 documented as of this encounter
--- OUTSIDE RECORDS SUMMARY | 2025-07-07 11:37 | XMS_ITS | Encounter Summary ---
Author Organization [employer] Address [address] [place] [address] Care Team Providers Care Soda Clerk Name Role Phone Angeles, [facility] Primary Care Provider Raissa To PharmD Unavailable [phone] Reason for Visit * Reason Onset Date Comments chart prep 07/04/2025 Encounter Details Date Type Department Care Team (Late st Contact Info) Description 07/04/2025 Telephone [facility] [address] [place], [place] [phone] [facility] [address] [place], [place] [phone] chart prep Social History Tobacco Use Types Packs/Day Years [...] encounter Miscellaneous Notes * Telephone Encounter - Dank Hernández MA - 07/04/2025 10:17 AM EST Chart Prep Labs: done Images: done Referrals: complete Vaccines due: Covid, Flu, and RSV Screenings: colonoscopy and pap smear Overdue care gaps: Glucose documented in this encounter Plan of Treatment Upcoming Encounters Date Type Department Care Team (Late st Contact Info) Description 08/16/2025 11:30 AM EST Office Visit [facility] [address] [place] [address] [facility] [address] [place] [address] documented as of this encounter Goals Goal Patient Goal Type Associated Problems Recent Progress Patient-Stated? Author Help patients manage their type 2 diabetes Care Plan Help patients manage their type 2 diabetes Araceli Bower Weekly blood pressure task Care Plan Weekly blood pressure task Araceli Bower Help patients manage their type 2 diabetes Care Plan Help patients manage their type 2 diabetes Araceli Bower Patient has chronic kidney disease Care Plan Patient has chronic kidney disease No Bijal Araceli Weekly blood pressure task Care Plan Weekly blood pressure task No Bijal Araceli Patient has chronic kidney disease Care Plan Patient has chronic kidney disease No Araceli Appiah Weekly blood pressure task Care Plan Weekly blood pressure task No Okhipo, Krys, AIR REDUCTION EQUIPMENT OPERATOR Weekly blood pressure task Care Plan Weekly blood pressure task No Okhipo, Krys, AIR REDUCTION EQUIPMENT OPERATOR Patient has chronic kidney disease Care Plan Patient has chronic kidney disease No Okhipo, Krys, AIR REDUCTION EQUIPMENT OPERATOR Patient has chronic kidney disease Care Plan Patient has chronic kidney disease No Okhipo, Krys, AIR REDUCTION EQUIPMENT OPERATOR Weekly blood pressure task Care Plan Weekly [...] Hernández [place] documented as of this encounter Visit Diagnoses [...] documented as of this encounter Care Teams Soda Clerk Relationship Specialty Start Date End Date AngelesMarilu samayoa FNP [address] [place] [address] PCP - General Family Medicine 01/02/22 Raissa To PharmD [address] [place] [address] Pharmacist Internal Medicine 06/17/24 documented as of this encounter
--- OUTSIDE RECORDS SUMMARY | 2025-07-07 11:37 | XMS_ITS | Encounter Summary ---
Author Organization [employer] Address [address] [place] [address] Care Team Providers Care Dean Of Men Name Role Phone Marilu Reynoso SENIOR INFORMATION SECURITY CONSULTANT Primary Care Provider [phone] Raissa To PharmD Unavailable [phone] Encounter Details Date Type Department Care Team (Latest Contact Info) Description 07/05/2025 Travel Social History Tobacco Use Types Packs/Day [...] Description 08/16/2025 11:30 AM EST Office Visit [facility] [address] [place], [place] [phone] [facility] [address] [place], [place] [phone] documented as of this encounter Goals Goal [...] Weekly blood pressure task No Okhipo, Krys, SENIOR INFORMATION SECURITY CONSULTANT Weekly blood pressure task Care Plan Weekly blood pressure task No Okhipo, Krys, SENIOR INFORMATION SECURITY CONSULTANT Patient has chronic kidney disease Care Plan Patient has chronic kidney disease No Okhipo, Krys, SENIOR INFORMATION SECURITY CONSULTANT Patient has chronic kidney disease Care Plan Patient has chronic kidney disease No Okhipo, Krys, SENIOR INFORMATION SECURITY CONSULTANT Weekly blood pressure task Care Plan Weekly [...] documented as of this encounter Care Teams Dean Of Men Relationship Specialty Start Date End Date Marilu Reynoso FNP [address] [place] [address] PCP - General Family Medicine 01/02/22 Raissa To, Rafia [address] [place] [address] Pharmacist Internal Medicine 06/17/24 documented as of this encounter
--- OUTSIDE RECORDS SUMMARY | 2025-07-07 11:37 | XMS_ITS | Encounter Summary ---
Author Organization [employer] Address [address] [place] [address] Care Team Providers Care Boiler House Inspector Name Role Phone [facility] Primary Care Provider [phone] Raissa To PharmD Unavailable [phone] Irina Barragan RN Unavailable Unavailable Alexus Alvarez Unavailable Dariela Alvarez RN Unavailable [phone] Reason for Visit * Reason Comments Med Refill Encounter Details Date Type Department Care Team (Late st Contact Info) Description 08/13/2024 Refill [facility] [address] [place], [place] [phone] [facility] [address] [place] [address] Thoracic back pain, unspecified back pain laterality, [...] Upcoming Encounters Date Type Department Care Team ([facility] st Contact Info) Description 08/16/2025 11:30 AM EST Office Visit [facility] [address] [place] [address] Marilu Reynoso FNP [address] [place] [address] documented as of this encounter Visit Diagnoses Diagnosis Thoracic back pain, unspecified back pain laterality, unspecified chronicity Mood disorder (CMS/HCC) Unspecified episodic mood disorder documented in this encounter Additional Health Concerns Assessment Noted Time PHQ-9 Depression Total Score: 9 07/18/20 24 1:40 PM EST documented as of this encounter Care Teams Boiler House Inspector Relationship Specialty Start Date End Date Marilu Reynoso FNP [address] [place] [address] PCP - General Family Medicine 01/02/22 Raissa To PharmD [address] [place] [address] Pharmacist Internal Medicine 06/17/24 Irina Barragan RN [address] [place] [id number] Registered Nurse Family Medicine 01/02/25 04/24/25 Alexus Alvarez 01/02/25 05/08/25 Dariela Alvarez RN [address] [place] [address] Registered Nurse Family Medicine 04/24/25 05/08/25 documented as of this encounter
--- OUTSIDE RECORDS SUMMARY | 2025-07-07 11:37 | XMS_ITS | Encounter Summary ---
Author Organization [employer] Address [address] [place] [address] Care Team Providers Care Consulting Senior Practice Director Name Role Phone Marilu Reynoso HISTORIC INTERPRETER Primary Care Provider [phone] Raissa To PharmD Unavailable [phone] Encounter Details Date Type Department Care Team (Late st Contact Info) Description 07/07/2025 Orders Only GENERIC EXTERNAL DATA DEPARTMENT Provider, [...] 08/16/2025 11:30 AM EST Office Visit [facility] [address] [place], [place] [phone] [place] [facility] [address] [place] [address] documented as of this encounter Goals Goal [...] Weekly blood pressure task No Okhipo, Krys, HISTORIC INTERPRETER Weekly blood pressure task Care Plan Weekly blood pressure task No Elyseo Krys, HISTORIC INTERPRETER Patient has chronic kidney disease Care Plan Patient has chronic kidney disease No Okhipo, Krys, HISTORIC INTERPRETER Patient has chronic kidney disease Care Plan Patient has chronic kidney disease No Jasperhipo, Krys, HISTORIC INTERPRETER Weekly blood pressure task Care Plan Weekly [...] Nomi Navarrete documented as of this encounter Procedures Procedure Name Priority Date/Time Associated Diagnosis Comments VENOUS BLOOD GAS Routine 07/07/2025 11:1 0 AM EST CBC WITH AUTO DIFFERENTIAL Routine 07/07/2025 11:02 AM EST documented in this encounter Results * (ABNORMAL) VENOUS BLOOD GAS (07/07/2025 11:10 AM EST) VBG pH 7.27(L) 7.32 - 7.43 [facility] Comment:METER #: [id number] additional_comment: Cb omoruna VBG PCO2 54 mmHg [facility] Comment:METER #: [id number] additional_comment: Cb omoruna VBG PO2 43 mmHg [facility] Comment:METER #: [id number] additional_comment: Cb omoruna VBG Base Excess -2.2 mmol/L [facility] Comment:METER #: [id number] additional_comment: Cb omoruna VBG HCO3 25 22 - 26 mmol/L [facility] Comment:METER #: [id number] additional_comment: Cb omoruna O2 Sat, Esteban 63.0 % [facility] Comment:METER #: [id number] additional_comment: Cb omoruna 07/07/2025 11:1 0 AM EST 07/07/2025 11:13 AM EST us Generic External Data Provider LAB BLOOD ORDERAB LES Final Result [facility] [address] [place], [place] [phone] * (ABNORMAL) CBC auto differential (07/07/2025 11:02 AM EST) White Blood Count 7.0 4.8 - 10.8 X10*3/uL [facility] Red Blood Count 3.98(L) 4.20 - 5.50 X10*6/uL [facility] Hemoglobin 10.5(L) 12.0 - 16.0 g/dl [facility] Hematocrit 31.6(L) 37.0 - 47.0 % [facility] Mean Corpuscular Volume 79.4(L) 80.0 - 98.0 fL [facility] Mean Corpuscular Hemoglobin 26.4(L) 27.0 - 33.0 pg [facility] Mean Corpuscular HGB Conc 33.2 31.0 - 35.0 g/dl [facility] Red Cell Distribution Width 12.9 11.0 - 16.0 % [facility] Platelet Count 171 160 - 400 X10*3/uL [facility] Mean Platelet Volume 11.4 9.4 - 12.3 fL [facility] Neutrophils Percent Auto 61.6 45 - 73 % [facility] Imm Gran Pct Auto 0.7(H) 0.0 - 0.4 % [facility] Lymphocytes Percent Auto 29.3 20 - 40 % [facility] Monocytes Percent Auto 7.4 2 - 11 % [facility] Eosinophils Percent Auto 0.7 0 - 4 % [facility] Basophils Percent Auto 0.3 0 - 2 % [facility] NRBC Pct Auto 0.0 0.0 - 0.2 /100WBC [facility] Neutrophils Absolute Auto 4.3 2.0 - 8.3 x10*3/uL [facility] Imm Gran Abs Auto 0.05(H) 0.00 - 0.03 X10*3/uL [facility] Lymphocytes Absolute Auto 2.1 1.2 - 4.9 X10*3/uL [facility] Monocytes Absolute Auto 0.5 0.1 - 1.2 X10*3/uL [facility] Eosinophils Absolute Auto 0.1 0.0 - 0.4 X10*3/uL [facility] Basophils Absolute Auto 0.0 0.0 - 0.2 X10*3/uL [facility] NRBC Abs Auto 0.000 0.0 - 0.012 X10*3/uL [facility] 07/07/2025 11:0 2 AM EST 07/07/2025 11:11 AM EST us Generic External Data Provider LAB BLOOD ORDERAB LES Final Result [facility] [address] [place] [address] [phone] documented in this encounter Visit Diagnoses [...] documented as of this encounter Care Teams Consulting Senior Practice Director Relationship Specialty Start Date End Date [place] Marilu [facility] [address] [place] [address] PCP - General Family Medicine 01/02/22 Raissa To PharmD [address] [place] [address] Pharmacist Internal Medicine 06/17/24 documented as of this encounter
--- OUTSIDE RECORDS SUMMARY | 2025-07-07 11:37 | XMS_ITS | Clinical Summary ---
Author Organization [employer] Address [address] [facility] [address] [place] [address] Care Team Providers Care Load Out Supervisor Name Role Phone Marilu Reynoso HOSPITAL WELLNESS COORDINATOR Primary Care Provider [phone] Raissa To PharmD Unavailable [phone] Allergies Active Allergy Reactions Criticality Noted Date [...] mg by mouth every 6 (six) hours. Active Methylcobalamin 1 MG chewable tablet Chew 2 tablets Once per day. Active Spacer/Aero-Hol ding Chambers device Use it every 4-6 hrs Active Diclofenac Sodium 1 % gel Apply topically. Apply 2 gram by topical route 3 times every day to the affected areas as needed for pain 11/09/2 022 Active tiotropium (Spiriva HandiHaler) 18 MCG inhalation capsuleIndicati ons:Severe persistent asthma without complication (HCC) Place 1 capsule (18 mcg) into inhaler and inhale in the morning. Place into inhaler and inhale. 30 capsule 023 Active Additional Information Patient not taking.Reported on 03/17/2025 Blood Pressure kitIndications: Essential hypertension Check bp 1-2 times per day. 1 kit Active fluticasone (Flonase) 50 MCG/ACT nasal spray INSTILL 2 SPRAYS IN EACH NOSTRIL ONCE DAILY IN THE MORNING SHAKE GENTLY 48 g Active glucose blood (FREESTYLE LITE) test stripIndication s:Type 2 diabetes mellitus with hyperglycemia, with long-term current use of insulin ([facility]) USE DIRECTED TO TEST BLOOD SUGAR FOUR TIMES DAILY 100 strip Active insulin pen needle (WriketiGSenior Moments SafePack Pen Needle) 32G x 4 mm miscIndications :Type 2 diabetes mellitus with hyperglycemia, with long-term current use of insulin ([facility]) USE DIRECTED WITH INSULIN 100 each Active TRUEplus Lancets 33G miscIndications :Type 2 diabetes mellitus with hyperglycemia, with long-term current use of insulin ([facility]) USE DIRECTED TO TEST BLOOD SUGAR [...] a, with long-term current use of insulin ([facility]) Take 1 tablet (10 mg) by mouth Once per day. 30 tablet 11 07/05/20 25 5:37 PM EST 024 2024 Active Alcohol Swabs (Alcohol Prep) padsIndications :Type 2 diabetes mellitus with diabetic microalbuminuri a, with long-term current use of insulin (HCC) Use one pad each to prep skin prior to injection as directed 100 each 11 07/05/20 25 5:37 PM EST 025 Active Lancets 33G miscIndications :Type 2 diabetes mellitus with diabetic microalbuminuri a, with long-term current use of insulin (HCC) Use as directed to check blood sugar four times daily 100 each 3 07/05/20 25 5:37 PM EST 025 Active Blood Glucose Monitoring Suppl (GNP Easy Touch Glucose Meter) deviceIndicatio ns:Type 2 diabetes mellitus with diabetic microalbuminuri a, with long-term current use of insulin (HCC) Use as directed to check blood sugar four times daily 1 each 025 Active glucose blood test stripIndication s:Type 2 diabetes mellitus with diabetic microalbuminuri a, with long-term current use of insulin (HCC) Use as directed to check blood sugar four times daily 100 each 12 07/05/20 25 5:37 PM EST 025 Active insulin pen needle 32G x 4 mm miscIndications :Type 2 diabetes mellitus with diabetic microalbuminuri a, with long-term current use of insulin (HCC) Use as instructed to inject insulin 4 times daily 120 each 12 07/05/20 25 5:37 PM EST 025 2025 Active Continuous Glucose 1St Grade Teacher (FreeStyle Stevo 3 [place]) deviceIndicatio ns:Type 2 diabetes mellitus with diabetic microalbuminuri a, with long-term current use of insulin (HCC) 1 each Once per day. Use as directed for CGM 1 each 025 Active Continuous Glucose Sensor (FreeStyle Stevo 3 Plus Sensor) miscIndications :Type 2 diabetes mellitus with diabetic microalbuminuri a, with long-term current use of insulin (HCC) 1 each every 15 days. Apply 1 every 15 days as directed for CGM 2 each 07/05/20 25 5:37 PM EST 025 Active glucose blood (FreeStyle Precision Dylan Test) test stripIndication s:Type 2 diabetes mellitus with diabetic microalbuminuri a, with long-term current use of insulin (HCC) Use to test blood sugar 4 times daily in case of CGM failure or extremes of BG 100 each 2025 Active famotidine (Pepcid) 20 MG tabletIndicatio ns:Dyspepsia Take 1 tablet (20 mg) by mouth 2 times daily. 60 tablet 07/05/20 25 5:37 PM EST 025 2025 Active insulin lispro (HumaLOG KWIKPEN) 100 UNIT/ML injectionIndica tions:Type 2 diabetes mellitus with hyperglycemia, with long-term current use of insulin (HCC) inject by subcutaneous route per the following sliding scale before meals; do not administer if you don't eat. Sliding scale: 131-180=8units, 181-240=10 units, 241-300=12 units, 301-350=14 units, >350=16 units 100 mL 07/05/20 25 5:37 PM EST Active Aspirin Low Dose 81 MG EC tabletIndicatio ns:Essential hypertension TAKE 1 TABLET BY MOUTH EVERY MORNING 90 tablet Active montelukast (Singulair) 10 MG tablet TAKE 1 TABLET BY MOUTH EVERY EVENING DIRECTED 90 tablet Active olmesartan (BENIcar) 20 MG tablet TAKE 1 TABLET BY MOUTH EVERY MORNING 90 tablet Active omeprazole (PriLOSEC) [address] capsuleIndicati ons:Dyspepsia TAKE 1 CAPSULE BY MOUTH EVERY MORNING BEFORE MEALS 90 capsule 025 Active rosuvastatin (Crestor) 40 MG tablet TAKE 1 TABLET BY MOUTH EVERY MORNING 90 tablet 025 Active D3 Super Strength 50 MCG (2000 UT) capsule TAKE 1 CAPSULE BY MOUTH EVERY MORNING 90 capsule Active sertraline (Zoloft) 100 MG tabletIndicatio ns:Chronic major depressive disorder, single episode Take 1.5 tablets (150 mg) by mouth in the morning. 45 tablet 2 Active albuterol (Ventolin HFA) 108 (90 Base) MCG/ACT inhalerIndicati ons:Severe persistent asthma without complication (HCC) INHALE 2 PUFFS BY MOUTH EVERY 4 TO 6 HOURS NEEDED 18 g 3 025 Active lidocaine (Lidoderm) 5 % patchIndication s:Left arm pain APPLY 1 PATCH TOPICALLY TO SKIN, LEAVE ON FOR 12 HOURS AND OFF FOR 12 HOURS DIRECTED 15 patch 2 025 Active albuterol (2.5 MG/3ML) 0.083% nebulizer solutionIndicat ions:Severe persistent asthma with acute exacerbation (HCC) Take via nebulizer every 4-6 hrs as needed for SOB, wheezing 90 mL 3 025 Active nicotine polacrilex (Nicorette) 2 MG gumIndications: Continuous dependence on cigarette smoking Chew [address] between cheeks and gums; use in place of cigarette every 1-2 hrs as needed 100 each 3 025 Active nystatin (Mycostatin) 822044 UNIT/GM powderIndicatio ns:Intertrigo Apply to affected area 3 times daily 60 g 025 2025 Active gabapentin (Neurontin) 100 MG capsuleIndicati ons:Thoracic back pain, unspecified back pain laterality, unspecified chronicity TAKE 2 CAPSULES BY MOUTH THREE TIMES DAILY IN THE MORNING, AT NOON AND AT BEDTIME 540 capsule 07/05/20 25 5:37 PM EST Active insulin glargine (Lantus SoloStar) 100 UNIT/ML penIndications: Type 2 diabetes mellitus with hyperglycemia, with long-term current use of insulin ([facility]) INJECT 38 UNITS SUBCUTANEOUSLY ONCE DAILY 15 mL 1 07/05/20 25 5:37 PM EST 025 Active hydrOXYzine pamoate (Vistaril) 25 MG capsuleIndicati ons:Chronic major depressive disorder, single episode Take 1 capsule (25 mg) by mouth if needed in the morning and at bedtime for anxiety. 60 capsule 2 07/05/20 25 5:37 PM EST 025 2025 Active celecoxib (CeleBREX) 200 MG capsule TOME 1 C PSULA ORALLY 2 TIMES A DAY FOR 30 DAYS 025 Active bacitracin-poly myxin b (Polysporin) ointmentIndicat ions:Pruritic intertrigo Apply to affected area daily 15 g 025 2025 Active [place] Starch ([employer] Baby Powder-Cornstar ch) powderIndicatio ns:Pruritic intertrigo Apply to left armpit at least twice daily 113 g Active QUEtiapine (SEROquel) 200 MG tabletIndicatio ns:Chronic major depressive disorder, recurrent episode (CMS/HCC) TAKE 1 TABLET BY MOUTH AT BEDTIME 30 tablet Active QUEtiapine (SEROquel) 200 MG tabletIndicatio ns:Chronic major depressive disorder, recurrent episode ([facility]/HCC) Take 1 tablet (200 mg) by mouth at bedtime. 30 tablet 07/05/20 25 5:37 PM EST Active Tirzepatide (Mounjaro) 2.5 MG/0.5ML solution auto-injectorIn dications:Type 2 diabetes mellitus with hyperglycemia, with long-term current use of insulin ([facility]) Inject 2.5 mg under the skin 1 (one) time per week. 2 mL 3 07/05/20 25 5:37 PM EST 025 2025 Active azithromycin (Zithromax) 500 MG tabletIndicatio ns:Asthma exacerbation with COPD (chronic obstructive pulmonary disease) ([facility]) ([facility]) Take 1 tablet (500 mg) by mouth Once per day for 3 days. 3 tablet 07/05/20 25 5:37 PM EST 025 2024 Active Fluticasone Furoate-Vilante rol (Breo Ellipta) 100-25 MCG/ACT aerosol powderIndicatio ns:Asthma exacerbation with COPD (chronic obstructive pulmonary disease) ([facility]) ([facility]) Inhale 1 puff Once per day. 1 each 1 Active Umeclidinium [place] (Incruse Ellipta) 62.5 MCG/ACT aerosol powderIndicatio ns:Asthma exacerbation with COPD (chronic obstructive pulmonary disease) ([facility]) ([facility]) Inhale 1 Act (62.5 mcg) Once per day. 1 each 1 Active predniSONE (Deltasone) 10 MG tabletIndicatio ns:Asthma exacerbation with COPD (chronic obstructive pulmonary disease) (CMS/[facility]) ([facility]) Take 2 tablets (20 mg) by mouth Once per day for 5 days. 10 tablet 025 2024 Active Fluticasone-Ume clidin-Vilant (Trelegy Ellipta) 200-62.5-25 MCG/ACT aerosol powderIndicatio ns:Severe persistent asthma without complication ([facility]) Inhale 1 puff Once per day. 1 each 1 025 2024 Discontinued budesonide-form oterol (Symbicort) 160-4.5 MCG/ACT inhalerIndicati ons:Severe persistent asthma with acute exacerbation ([facility]) Inhale 2 puffs in the morning and at bedtime. Rinse mouth with water after use to reduce aftertaste and incidence of candidiasis. Do not swallow. 1 each 025 2024 Discontinued Ozempic, 0.25 or 0.5 MG/DOSE, 2 MG/3ML solution pen-injectorInd ications:Type 2 diabetes mellitus with hyperglycemia, with long-term current use of insulin ([facility]) Inject 0.5 mg under the skin every 7 (seven) days. 3 mL 1 025 2024 Discontinued QUEtiapine (SEROquel) 200 MG tabletIndicatio ns:Chronic major depressive disorder, recurrent episode (CMS/[facility]) TAKE 1 TABLET BY MOUTH AT BEDTIME 30 tablet 025 2024 Discontinued Ozempic, 0.25 or 0.5 MG/DOSE, 2 MG/3ML solution pen-injectorInd ications:Type 2 diabetes mellitus with hyperglycemia, with long-term current use of insulin ([facility]) INJECT 0.5 MG SUBCUTANEOUSLY EVERY 7 DAYS IN THE ABDOMEN, THIGHS, OR UPPER ARM, ROTATE INJECTION SITES. 3 mL 1 025 2024 Discontinued Hospital, Clinic, or Other Facility Administered Medication Ordered Dose Route Frequency Start Date End Date Status Insulin Lispro solution 10 UnitsIndications:Hyp erglycemia 10 Units IJ Once 07/05/2025 07/05/2025 Ended ipratropium-albutero l (Duo-Neb) 0.5-2.5 mg/3 mL nebulizer solution 3 mLIndications:Asthma exacerbation with COPD (chronic obstructive pulmonary disease) ([facility]) (HCC) 3 mL NEBULIZATION Once 07/05/2025 07/05/2025 Ended Active Problems Problem Noted Date Diagnosed Date Pruritic intertrigo 06/28/2025 Closed displaced fracture of left clavicle 04/05 [...] 2:27 PM EST): -gave number to call [facility] Healthcare maintenance 03/03/2023 Overview (02/19/2024): Pap: 2-18, [...] Exam: 07/2023 Risk 1 Eye Exam: 06/2023 [facility] Lipid panel: 02/2023 Microalbumin:creatinine ratio: 42.5 [...] 03/03/2023 CGM sensor resent Will refer to [facility] DM educator Will hold off on [...] regimen New BP kit sent to pharmacy shelter (current) use of insulin ([facility]) 05/2015 Chronic major depressive disorder, single episod e 05/23/2015 Overview (03/06/2023): - Seroquel 150mg every evening for help with sleep - Sertraline 50mg - Psychiatric history unclear. ?bipolar disorder - Hx of suicidal ideation and psych hospitalization - Referred to [facility], per chart note, contact attempt was made. [...] of SI or self harm. Pt has [facility] crisis contact information Hyperlipidemia 05/23/2015 Hypothyroidism 05/23/2015 [...] Microalbuminuria due to type 2 diabetes mellitus 04/25/2023 02/19/2024 Periodontal disease 10/23/2022 03/03/20 Dental caries 10/23/2022 03/03/2023 History of severe acute resp iratory syndrome coronavirus 2 (SARS-CoV-2) disease 09/24/202002/18 Thoracic back pain 01/18/2018 3 Allergic rhinitis 06/02/2016 03/06/2023 Encounters * This document contains information received from the source organization and may not represent a complete record from that organization. Date Type Department Care Team Description 07/07/2025 Orders Only GENERIC EXTERNAL DATA DEPARTMENT Provider, Generic External Data 07/07/2025 Telephone [facility] MEDICINE [address] [place] [address] Marilu Reynoso FNP Nurse Triage 07/05/2025 2:45 PM EST Office Visit [facility] [address] [place] [address] Marilu Reynoso FNP Asthma exacerbation with COPD (chronic obstructive pulmonary disease) (CMS/HCC) ([facility]) (Primary Dx); Type 2 diabetes mellitus with hyperglycemia, with long-term current use of insulin (HCC); Hyperglycemia 07/05/2025 Travel 07/04/2025 Telephone [facility] MEDIC[facility] [address] [place] [address] Marilu Reynoso FNP chart prep 07/01/2025 Orders Only GENERIC EXTERNAL DATA DEPARTMENT Provider, Generic External Data 06/30/2025 Refill [facility] [address] [place] [address] Marilu Reynoso HOSPITAL WELLNESS COORDINATOR Chronic major depressive disorder, recurrent episode (CMS/HCC) 06/29/2025 Refill [facility] [address] [place] [address] Marina Del ReyMarilu HOSPITAL WELLNESS COORDINATOR Chronic major depressive disorder, recurrent episode (CMS/HCC) 06/28/2025 Telephone [facility] [address] [place] [address] Marilu Reynoso FNP Med Refill 06/28/2025 Patient Outreach [facility] [address] [place] [address] Marina Del ReyMarilu samayoa FNP Pre-visit Planning (SDOH screening completed on 01/24/2025) 06/26/2025 5:20 PM EST Office Visit [facility] [address] [place] [address] Krys Breaux, CANDIS Pruritic intertrigo (Primary Dx) 06/26/2025 Travel 06/22/2025 Refill [facility] [address] [place] [address] Rasisa To PharmD Type 2 diabetes mellitus with hyperglycemia, with long-term current use of insulin (HCC) 06/06/2025 1:30 PM EDT Office Visit [facility] OPTOMETRY [address] [place] [address] Edil, Ellyn, OD Mild nonproliferative diabetic retinopathy of both eyes without macular edema associated with type 2 diabetes mellitus (HCC) (Primary Dx); Combined forms of age-related cataract of both eyes; Heterochromia of iris of left eye; Retinal drusen, left; Presbyopia 06/06/2025 Travel 06/01/2025 Refill [facility] [address] [place] [address] Marilu Reynoso [facility] Chronic major depressive disorder, recurrent episode ([facility]/HCC) 05/29/2025 Refill [facility] [address] [place], [place] [phone] [place] Marilu [facility] Chronic major depressive disorder, single episode 05/12/2025 Telephone [facility] [address] [place] [address] Marina Del ReyMarilu [facility] telephone call 05/11/2025 Refill [facility] [address] [place] [address] [place] Marilu [facility] Type 2 diabetes mellitus with hyperglycemia, with long-term current use of insulin ([facility]) 05/09/2025 Patient Outreach [address] [address] Marilu Reynoso HOSPITAL WELLNESS COORDINATOR Pre-visit Planning ([facility] screening completed on 01/24/2025) 05/08/2025 Patient Outreach [address] [address] Marilu Reynoso HOSPITAL WELLNESS COORDINATOR Care Coordination ([facility]/IRENA Alvarez, program graduation ) 05/08/2025 Patient Outreach [address] [address] Marilu Reynoso FNP Care Management ([facility]- f/u call) 05/05/[address] [address] Marina Del ReyMarilu [facility] Thoracic back pain, unspecified back pain laterality, unspecified chronicity; Chronic major depressive disorder, recurrent episode ([facility]) 05/02/2025 Patient Outreach [address] [address] Marilu Reynoso HOSPITAL WELLNESS COORDINATOR Care Coordination ([facility]/IRENA Alvarez, [facility] f/u, PT1) 04/28/2025 2:40 PM EDT Office Visit [facility] [address] [place] [address] Marilu Reynoso HOSPITAL WELLNESS COORDINATOR Intertrigo (Primary Dx) 04/28/2025 Travel 04/26/2025 Patient Outreach [address] [address] [facility] Care Management ([facility]- f/u call) 04/12/2025 Patient Outreach [address] [address] [facility] Care Coordination ([facility]/CHW CHAPIS Scott f/u call_lvm ) 04/12/2025 Patient Outreach [facility] [address] [place] [address] [facility] Care Coordination ([facility] f/u call- LVM) 04/10/[address] [address] [facility] Chronic major depressive disorder, recurrent episode (CMS/HCC) 04/07/[address] [address] [facility] 04/06/2025 Patient Outreach [address] [address] [facility] Care Management ([facility]- f/u call lvm) from Last 3 Months Immunizations Immunization Administration [...] Mass Index 40.43 07/05/2025 3:01 PM EST Plan of Treatment Upcoming Encounters Date Type Department Care Team (Late st Contact Info) Description 08/16/2025 11:30 AM EST Office Visit [facility] MEDICINE [address] [place] [address] [facility] [address] [place] [address] Health Maintenance Due Date Last Done Comments CT Colonography 1970 Dental Prophylaxis 1970 Dental X-Ray: Bitewings 1970 Dental X-Ray: Full Mouth 1970 FIT DNA/Cologuard 1970 FIT 1970 FOBT 1970 HIV Screening 1970 Sigmoidoscopy 1970 Hepatitis C Screening 1988 Pap Smear 1991 RSV Patients and Patients Aged 60 years or older (1 - Risk 50-74 years 1-dose series) 2020 Colonoscopy 06/28/2022 06/28/2019 Colorectal Cancer Screening 06/28/2022 Cervical Cancer Screening 05/11/2023 HPV/Cotest 05/11/2023 05/11/2018, 01/14/2017 Dental Oral Exam 09/22/2024 03/21/2024, 10/23/2022 COVID-19 Vaccine ( season) 2025 07/18/2024, 07/20/2023, 03/25/2021, Additional history exists Influenza Vaccine (#1) 2025 , 07/20/2023, 05/20/2022, Additional history exists Lipid Panel 07/11/2025 07/11/2024, 02/14, 01/03/2022 Diabetes: Foot Exam 07/18/2025 07/18/2024, 07/18/2024, 07/18/2024, Additional history exists Diabetes: Hemoglobin A1C 07/28/2025 025, 02/08/2025, 10/24/2024, Additional history exists Mammogram 11/30/2025 11/30/2024, 07/19, 08/13/2018, Additional history exists SDOH Screening 01/24/2026 01/24/2025 Alcohol/Substance Use Screening 02/08/2026 02/08/2025 Depression Screening 02/08/2026 02/08/2025, 02/09/20 25 Disability Screening 02/08/2026 02/08/2025 Eye Exam 06/06/2026 06/06/2025, 05/18, 06/06/2025, Additional history exists Tobacco Screening 07/05/2026 07/05/2025 DTaP/Tdap/Td Vaccines (4 - Td or Tdap) 10/12/2033 10/12/2023, 07/21/2013, 01/10/2005, Additional history exists Hepatitis B Vaccines Completed 02/07/2014, 09/22/2013, 07/21/2013 Pneumococcal Vaccine: 50+ Years Completed 07/20/2023, 02/22/2017, 12/21/2001 Zoster Vaccines Completed 10/12/2023, 05/20/2022 HIB Vaccines Aged Out No longer eligi [...] on patient's age to complete this topic Goals Goal Patient Goal Type Associated Problems [...] Weekly blood pressure task No Okhipo, Krys, HOSPITAL WELLNESS COORDINATOR Weekly blood pressure task Care Plan Weekly blood pressure task No Okhipo, Krys, HOSPITAL WELLNESS COORDINATOR Patient has chronic kidney disease Care Plan Patient has chronic kidney disease No Okhipo, Krys, HOSPITAL WELLNESS COORDINATOR Patient has chronic kidney disease Care Plan Patient has chronic kidney disease No Okhipo, Krys, HOSPITAL WELLNESS COORDINATOR Weekly blood pressure task Care Plan Weekly [...] Plan Patient has chronic kidney disease No DauiNomi moody Procedures Procedure Name Priority Date/Time Associated Diagnosis Comments VENOUS BLOOD GAS Routine 07/07/2025 11:1 0 AM EST CBC WITH AUTO DIFFERENTIAL Routine 07/07/2025 11:02 AM EST POCT URINALYSIS DIPSTICK Routine 07/05/2025 3:22 PM EST Type 2 diabetes mellitus with hyperglycemia, with long-term current use of insulin (HCC) POCT GLUCOSE Routine 07/05/2025 3:02 PM EST Type 2 diabetes mellitus with hyperglycemia, with long-term current use of insulin (HCC) GLUCOSE, WHOLE BLOOD Routine 07/01/2025 6:48 PM EST XR CHEST 2 VIEWS Routine 07/01/2025 4:01 PM EST HIGH SENSITIVITY TROPONIN I Routine 07/01/2025 2:51 PM EST BASIC METABOLIC PANEL Routine 07/01/2025 2:51 PM EST HEPATIC FUNCTION PANEL Routine 2:51 PM EST PROTHROMBIN TIME-INR Routine 07/01/2025 2:51 PM EST CBC WITH AUTO DIFFERENTIAL Routine 07/01/2025 2:51 PM EST SARS COV2/INFLUENZA A/B AND RSV RNA QL NAAT Routine 07/01/2025 2:51 PM EST POCT GLYCATED HEMOGLOBIN, TOTAL Routine 04/28/2025 1:09 PM EDT Type 2 diabetes mellitus with hyperglycemia, with long-term current use of insulin (CMS/HCC) BI MAMMOGRAM SCREENING TOMOSYNTHESIS BILATERAL Routine 11/30/2024 [...] Relevant to Health Maintenance Results * (ABNORMAL) VENOUS BLOOD GAS (07/07/2025 11:10 AM EST) VBG pH 7.27(L) 7.32 - 7.43 [facility] Comment:METER #: [id number] additional_comment: Cb omoruna VBG PCO2 54 mmHg [facility] Comment:METER #: [id number] additional_comment: Cb omoruna VBG PO2 43 mmHg [facility] Comment:METER #: [id number] additional_comment: Cb omoruna VBG Base Excess -2.2 mmol/L [facility] Comment:METER #: [id number] additional_comment: Bill guajardo VBG HCO3 25 22 - 26 mmol/L [facility] Comment:METER #: [id number] additional_comment: Bill guajardo O2 Sat, Esteban 63.0 % [facility] Comment:METER #: [id number] additional_comment: Bill guajardo 07/07/2025 11:1 0 AM EST 07/07/2025 11:13 AM EST us Generic External Data Provider LAB BLOOD ORDERAB LES Final Result [facility] [address] [place] [address] [phone] * (ABNORMAL) CBC auto differential (07/07/2025 11:02 AM EST) Only the most recent of2 resultswithin the time period is included. White Blood Count 7.0 4.8 - 10.8 X10*3/uL [facility] Red Blood Count 3.98(L) 4.20 - 5.50 X10*6/uL [facility] Hemoglobin 10.5(L) 12.0 - 16.0 g/dl [facility] Hematocrit 31.6(L) 37.0 - 47.0 % [facility] Mean Corpuscular Volume 79.4(L) 80.0 - 98.0 fL [facility] Mean Corpuscular Hemoglobin 26.4(L) 27.0 - 33.0 pg [facility] [facility] Mean Corpuscular HGB Conc 33.2 31.0 - 35.0 g/dl [facility] Red Cell Distribution Width 12.9 11.0 - 16.0 % [facility] Platelet Count 171 160 - 400 X10*3/uL [facility] Mean Platelet Volume 11.4 9.4 - 12.3 fL [facility] Neutrophils Percent Auto 61.6 45 - 73 % [facility] Imm Gran Pct Auto 0.7(H) 0.0 - 0.4 % [facility] Lymphocytes Percent Auto 29.3 20 - 40 % [facility] Monocytes Percent Auto 7.4 2 - 11 % [facility] Eosinophils Percent Auto 0.7 0 - 4 % [facility] Basophils Percent Auto 0.3 0 - 2 % [facility] NRBC Pct Auto 0.0 0.0 - 0.2 /100WBC [facility] Neutrophils Absolute Auto 4.3 2.0 - 8.3 x10*3/uL [facility] Imm Gran Abs Auto 0.05(H) 0.00 - 0.03 X10*3/uL [facility] Lymphocytes Absolute Auto 2.1 1.2 - 4.9 X10*3/uL [facility] Monocytes Absolute Auto 0.5 0.1 - 1.2 X10*3/uL [facility] Eosinophils Absolute Auto 0.1 0.0 - 0.4 X10*3/uL [facility] Basophils Absolute Auto 0.0 0.0 - 0.2 X10*3/uL [facility] NRBC Abs Auto 0.000 0.0 - 0.012 X10*3/uL [facility] 07/07/2025 11:0 2 AM EST 07/07/2025 11:11 AM EST us Generic External Data Provider LAB BLOOD ORDERAB LES Final Result Performing Organization Address City/State/[facility] Co de Phone Number [facility] [address] [place] [phone] * (ABNORMAL) POCT Urinalysis (07/05/2025 3:22 PM [...] Urine (Urine, Random) 07/05/2025 3:22 PM EST [facility] POINT OF CARE TEST ENTER/EDIT ORDERABLES Final Result * (ABNORMAL) POCT Glucose (07/05/2025 3:02 PM EST) Glucose Blood, POC 500(A) 60 - 200 mg/dL Comment:[facility] Blood Capillary blood specimen / Unknown 07/05/2025 3:02 PM EST [facility] POINT OF CARE TEST ENTER/EDIT ORDERABLES Final Result * (ABNORMAL) Glucose, Whole Blood (07/01/2025 6:48 PM EST) Glucose, Whole Blood 340(H) 60 - 115 mg/dL [facility] Comment:METER #: [id number] 07/01/2025 6:48 PM EST 07/01/2025 6:53 PM EST Generic External Data Provider LAB BLOOD ORDERAB LES Final Result Performing Organization Address City/State/[facility] Co de Phone Number [facility] [address] [place] [address] [phone] * XR Chest 2 Views (07/01/2025 4:01 PM EST) Anatomical Region Laterality Modality Chest Radiographic Thelma ging 07/01/2025 4:01 PM EST Narrative 07/01/2025 4:03 PM EST [address] [address] XRay Report Signed Patient: Shannon Aviles MR#: [id number] : 1970 Acct:[id number] Age/Sex: 55 / F ADM Date: 07/01/25 Loc: HO.ED Attending Dr: Ordering Physician: Sumi Coronado NP Date of Service: 07/01/25 Procedure(s): XR chest 2V Accession Number(s): [id number] cc: Sumi Coronado NP; [facility] Reason for Exam: sob CLINICAL HISTORY: sob Chest Radiographs, 2 views Comparison: CR - XR CHEST 2V - 03/14/25 02:[address]/SR - CT CHEST WO IV CON - 02/01/25 19:01 EDT CR - XR CHEST 2V - 01/01/25 10:22 EDT Findings: No cardiomegaly. Normal mediastinal contours. No pneumothorax. No opacity. No pleural effusion. No acute findings in the upper abdomen. No acute fracture. Impression: No acute findings. This document has been electronically signed by: Peri Dixon MD on 07/01/2025 16:01:55 Dictated By: Peri Moseley MD Signed By: <Electronically signed by Peri Moseley MD in OV> 07/01/25 1603 DD/ 1601 TD/TT: 07/01/25 1601 Curing Finisher: Procedure Note Donotuseinterpreter, Image - 07/01/2025 [place] [address] XRay Report Signed Patient: Pamela Aviles#: [id number] : 1970Acct:[id number] Age/Sex: 55 / FADM Date: 07/01/25 Loc: .ED Attending Dr: Ordering Physician: Sumi Coronado NP Date of Service: 07/01/25 Procedure(s): XR chest 2V Accession Number(s): [id number] cc: Sumi Coronado NP; [facility] Reason for Exam: sob CLINICAL HISTORY: sob Chest Radiographs, 2 views Comparison: CR - XR CHEST 2V - 03/14/25 02:[address]/SR - CT CHEST WO IV CON - 02/01/25 19:01 EDT CR - XR CHEST 2V - 01/01/25 10:22 EDT Findings: No cardiomegaly. Normal mediastinal contours. No pneumothorax. No opacity. No pleural effusion. No acute findings in the upper abdomen. No acute fracture. Impression: No acute findings. This document has been electronically signed by: Peri Dixon MD on 07/01/2025 16:01:55 Dictated By: Peri Moseley MD Signed By: <Electronically signed by Peri Moseley MD in OV> 07/01/25 1603 DD/ 1601 TD/TT: 07/01/25 1601 Curing Finisher: [facility] External Provider IMG XR PROCEDURES Edited Result - Final * High Sensitivity Troponin I (07/01/2025 2:51 PM EST) Pathologist [facility] [place] TROPONIN I HIGH SENSITIVITY <2.7 <3.5 - 17.0 ng/L [facility] Comment:The [place] high sens itivity Troponin-I results should beused in conjunction with other diagnostic information suchas ECG, clinical observations and information, and patientsymptoms to aid in the diagnosis of MO. 07/01/2025 2:51 PM EST 07/01/2025 2:55 PM EST Generic External Data Provider LAB BLOOD ORDERAB LES Final Result [facility] [address] [place] [phone] * (ABNORMAL) SARS-CoV-2 RNA, Influenza A/B, and RSV RNA, Ql NAAT (07/01/2025 2:51 PM EST) Pathologist [facility] [place] Influenza A PCR NEGATIVE Negative [facility] Influenza B PCR NEGATIVE Negative [facility] Resp Syncy Virus RNA Qual PCR NEGATIVE Negative [facility] SARS COV2 PCR POSITIVE(A) Negative [facility] Comment:All test results mus t be [...] use by authorized laboratories.Testing performed on the [employer] GeneXpert utilizingreal-time RT-PCR.All SARS CoV2 and positive influenza A/B results arereported to [facility]. 07/01/2025 2:51 PM EST 07/01/2025 2:55 PM EST Generic External Data Provider LAB MICROBIOLOGY - GENERAL ORDERABLES Final Result Performing Organization Address [facility] Co de Phone Number [facility] [address] [place] [phone] * (ABNORMAL) Prothrombin Time-INR (07/01/2025 2:51 PM EST) Prothrombin Time 13.6(H) 11.2 - 13.5 SEC [facility] INTERNATIONAL NORM RATIO 1.1 0.9 - 1.1 [facility] Comment:INTERNATIONAL NORMAL IZED RATIO (INR) REFERENCE RANGES Reference RangeFor patients not on anticoagulant therapy: 0.9 - 1.1INR ranges for oral anticoagulanttherapy:For prevention and treatment of venous thrombosis and pulmonary embolism: 2.0 - 3.0For acute myocardial infarction with aspirin therapy: 2.0 - 3.0For acute myocardial infarction without aspirin therapy: 3.0 - 4.0For patients with mechanical prosthetic heart valves: 2.5 - 3.5 07/01/2025 2:51 PM EST 07/01/2025 2:55 PM EST Generic External Data Provider LAB BLOOD ORDERAB LES Final Result Performing Organization Address [facility] Co de Phone Number [facility] [address] [place] [address] [phone] * (ABNORMAL) Hepatic Function Panel (07/01/2025 2:51 PM EST) Bilirubin, Total 0.3 0.0 - 1.0 mg/dL [facility] Bilirubin, Direct 0.1 0.0 - 0.5 mg/dL [facility] Aspartate Amino Transferase 16 5 - 31 U/L [facility] Alanine Aminotransferase 11 0 - 31 U/L [facility] Total Protein 7.3 6.5 - 8.0 g/dL [facility] Albumin Level 4.3 3.5 - 5.0 g/dL [facility] Alkaline Phosphatase 135(H) 39 - 117 U/L [facility] 07/01/2025 2:51 PM EST 07/01/2025 2:55 PM EST us Generic External Data Provider LAB BLOOD ORDERAB LES Final Result [facility] [address] [place] [phone] * (ABNORMAL) Basic Metabolic Panel (07/01/2025 2:51 PM EST) Sodium 132(L) 135 - 145 mmol/L [facility] Potassium 4.0 3.3 - 5.1 mmol/L [facility] Chloride 98 96 - 108 mmol/L [facility] Carbon Dioxide 22 22 - 29 mmol/L [facility] Anion Gap 16 12 - 20 [facility] Urea Nitrogen (BUN) 8(L) 9 - 16 mg/dL [facility] Creatinine, Serum 0.95 0.5 - 1.4 mg/dL [facility] Creatinine Clr Calc Pharmacy 72.3 [facility] Comment:Provided height and weight: 157.48 cm,96 kg.eGFR (calculated from the MDRD study equation) and eCrCl(calculated from the Cockcroft-Gault equation) are based ondifferent parameters and may not yield comparable results.If eCrCl result is absurd, please check patient'sheight/weight. Estimated Glomerular Filt Rate >60 [facility] Comment:Chronic Kidney Disea se: Estimated GFR < 60 mL/min/1.42j4Jbaxos Kidney Disease: Estimated GFR < 15 mL/min/1.73m2 Glucose 573(HH) 60 - 115 mg/dL [facility] Comment:Critical value for t est(s):GLUR Results called to and readback by: DAVID Person calling:[email or web address] Date: [id number]:1524 Calcium 8.7 8.4 - 10.2 mg/dL [facility] 07/01/2025 2:51 PM EST 07/01/2025 2:55 PM EST Generic External Data Provider LAB BLOOD ORDERAB LES Final Result [facility] [address] [place] [phone] * (ABNORMAL) POCT A1c (04/28/2025 1:09 PM EDT) Hemoglobin A1C 10.6(A) 4.0 - 5.7 % QC Media Lot # [id number] Lot# Expiration Date [id number] Blood 04/28/2025 1:09 PM EDT Marilu Reynoso HOSPITAL WELLNESS COORDINATOR POINT OF CARE TEST ENTER/EDIT ORDERABLES Final Result * BI Mammogram Screening Tomosynthesis Bilateral (11/30/2024 3:25 PM EDT) Anatomical Region Laterality Modality Breast Bilateral Mammography 11/30/2024 3:25 PM EDT Narrative 12/10/2024 2:51 PM EDT [facility] [address] [place] [address] Mammography Report Signed Patient: Shannon Aviles MR#: [id number] : 1970 Acct:[id number] Age/Sex: 54 / F ADM Date: 11/30/24 Loc: MARYSEO Attending Dr: Marilu Reynoso HOSPITAL WELLNESS COORDINATOR Ordering Physician: Marilu Reynoso Results: 1Nega tive Date of Service: 11/30/24 Follow Up: 1 Year From Orig inal Mammogram Procedure(s): MM tomosynthesis screening BI Accession Number(s): [id number] cc: Marilu Reynoso HOSPITAL WELLNESS COORDINATOR EXAMINATION: MM SCREENING DIGITAL BREAST TOMOSYNTHESIS, BILATERAL [...] 12/10/24 1448 DD/ 1525 TD/TT: 11/30/24 1539 Curing Finisher: Procedure Note Donotuseinterpreter, Image - 12/10/2024 [facility] [address] [place] [address] Mammography Report Signed Patient: Pamela Aviles#: [id number] : 1970Acct:[id number] Age/Sex: 54 / FADM Date: 11/30/24 Loc: [facility]TH Attending Dr: Marilu Reynoso HOSPITAL WELLNESS COORDINATOR Ordering Physician: Marilu Reynoso FNPResults: 1Nega tive Date of Service: 11/30/24Follow Up: 1 Year From Orig inal Mammogram Procedure(s): MM tomosynthesis screening BI Accession Number(s): [id number] cc: Marilu Reynoso HOSPITAL WELLNESS COORDINATOR EXAMINATION: MM SCREENING DIGITAL BREAST TOMOSYNTHESIS, BILATERAL [...] 12/10/24 1448 DD/ 1525 TD/TT: 11/30/24 1539 Curing Finisher: [facility] HOSPITAL WELLNESS COORDINATOR IMG BI PROCEDURES Edited Resu lt - Final * (ABNORMAL) Lipid Panel, Standard (07/11/2024 3:30 PM EST) Triglycerides 184(H) <150 mg/dL [facility] Comment:Desirable Triglyceri de: less than 150 mg/dLBorderline High Triglyceride 150-199 mg/dLHigh Triglyceride: 200-499 mg/dLVery High Triglyceride: greater than or equal to 5OO mg/dL Cholesterol 123 <200 mg/dL [facility] Comment:Desirable Cholestero l: less than 200 mg/dLBorderline High Cholesterol: 200-239 mg/dLHigh Cholesterol: greater than 239 mg/dL LDL Cholesterol Calculated 46 <100 mg/dL [facility] Comment:Desirable LDL: less than 100 mg/dLNear Optimal/Above Optimal LDL: 110- 129 mg/dLBorderline High LDL: 130-159 mg/dLHigh LDL: 160-189 mg/dLVery High LDL: greater than or equal to 190 mg/dL HDL Cholesterol 41 >40 mg/dL [facility] Comment:Desirable HDL: great er than 40 mg/dL Note: This HDL assay may give artificially low results in patients with liver disease. 07/11/2024 3:30 PM EST 07/11/2024 3:55 PM EST [facility] LAB BLOOD ORDERABLES Final Re sult [facility] [address] [place] [phone] * Hm Colonoscopy (06/28/2019 8:54 AM EST) Historical Provider HEALTH MAINTENANCE Final Result * HPV mRNA E6/E7 (05/11/2018 10:15 AM EDT) HPV mRNA E6/E7 Not Detected NOT DETECTED [facility] Comment: This test was performed using the APTIMA(R) HPV Assay ([employer] This assay detects E6/E7 viral messenger RNA (mRNA) from 14 high-risk HPV types (16,18,31,33,35,39,45,51, 52,56,58,59,66,68). For additional information please refer to: http://education.[employer]/faq/IWQ794e8 (This link is being provided for informational/ educational purposes only.) The analytical performance characteristics of this assay have been determined by [employer] [place], [place]. The modifications have not been cleared or approved by the FDA. This assay has been validated pursuant to the CLIA regulations and is used for clinical purposes. Test Performed by [employer] [facility], [address] [place] [address] Messi Bowen M.D., Ph.D., Director of Laboratories , CLIA [id number] Please note: Effective 04/28/2016, HPV testing will be performed using [employer]'s APTIMA test which targets mRNA. Detecting mRNA instead of DNA, as in older methods, offers significant improvements in specificity. 05/11/2018 10:1 5 AM EDT us Mehreen Sorto NP HISTORICAL/NON ORDERABLE LABS Fi nal Result [facility] [address] from Last 3 Months or Most Recently Relevant to Health Maintenance Additional Health Concerns Active Problems Noted Date [...] 07/07/2025 Patient has chronic kidney disease 07/07/2025 Insurance [facility] C3 DENTAL-[facility] MEDICAID STAND ADULT Care Teams Load Out Supervisor Relationship Specialty Start Date End Date [place] [facility] [address] [place] [address] PCP - General Family Medicine 01/02/22 Raissa To, PharmD [address] [place] [phone] Pharmacist Internal Medicine 06/17/24
[2025-07-07 11:43] LABS: Alanine Aminotransferase 10 U/L (0-31); Albumin Level 3.8 g/dL (3.5-5.0); Alkaline Phosphatase 135 U/L (39-117); Anion Gap 11 (12-20); Aspartate Amino Transferase 13 U/L (5-31); Blood Urea Nitrogen 40 mg/dL (9-16); Calcium 8.2 mg/dL (8.4-10.2); Carbon Dioxide 25 mmol/L (22-29); Chloride 97 mmol/L (96-108); Creatinine Clr Calc Pharmacy 30.1; Estimated Glomerular Filt Rate 24; Lipase 27 U/L (8-78); Magnesium 2.1 mg/dL (1.6-2.6); Potassium 3.4 mmol/L (3.3-5.1); Sodium 130 mmol/L (135-145); Total Protein 6.4 g/dL (6.5-8.0)
[2025-07-07 11:44] LABS: Troponin-I High Sensitivity < 2.7 ng/L (<3.5-17.0)
[2025-07-07 11:57] LABS: Procalcitonin 0.17 ng/mL
--- NOTE | 2025-07-07 11:58 | PC.NURSE ---
MD aware of blood sugar, stating not to give IV push insulin
[2025-07-07 12:00] LABS: Glucose, Whole Blood 317 mg/dL (60-115)
[2025-07-07 12:28] LABS: Resp Syncy Virus RNA Qual PCR NEGATIVE (Negative); SARS COV2 PCR INHOUSE POSITIVE (Negative)
[2025-07-07 12:33] LABS: D Dimer High Sensitivity < 150 NG/ML
[2025-07-07 13:04] LABS: Venous Blood Gas Refer to POC result
[2025-07-07 13:05] LABS: VBG HCO3 25 mmol/L (22-26); VBG O2 % Saturation 81.0 %
[2025-07-07 13:09] LABS: Reflex Lactate? Lactic Acid Added
--- NOTE | 2025-07-07 13:30 | PM.IMHP ---
History of Present Illness Date of Service: 07/07/25 Attending physician on admission: Luiz Banda Chief Complaint: cough This is a 55-year-old female with history of asthma who presents to the emergency department with shortness of breath. Patient seen emergency department on July 01 with similar symptoms. At that time she tested positive for coronavirus. She was discharged home with oral prednisone. She returns to the emergency department today cough productive of yellow phlegm. She reports shortness of breath as well as pain in her chest and upper abdomen when she coughs. She reports generalized fatigue and decreased oral intake over the past several days. In the emergency department her blood sugar was noted to be elevated at 421, she received a dose of regular insulin. Creatinine was noted to be elevated at 2.12 which significantly above her baseline, sodium was low at 130, lactic acid elevated at 2.5. She was treated with IV Solu-Medrol, albuterol, IV magnesium due to wheezing on exam. She received a dose of IV levofloxacin and was treated with IV fluid due to elevated lactic acid. Due to acute kidney injury and persistent respiratory symptoms she will be admitted to the hospital for further management. Review of Systems Review of Systems: Yes all other systems are reviewed and are negative Constitutional: Constitutional: Denies chills and Denies fever(s) Cardiovascular: Cardiovascular: Reports chest pain (left side, reproducible on exam ), Denies palpitations and Reports dyspnea Respiratory: Respiratory: Reports cough and Reports dyspnea Gastrointestinal: Gastrointestinal: Reports abdominal pain (upper abdominal with coughing only ), Denies nausea and Denies vomiting Endocrine: Endocrine: Denies palpitations [facility] Medical History Smoking Other and unspecified hyperlipidemia Essential hypertension Type 2 diabetes mellitus with unspecified complications Palpitations Hypotension Anemia Migraine aura without headache Anxiety Depression Asthma Hyperlipidemia LDL goal <100 Vitamin D insufficiency Type 2 diabetes mellitus with hyperglycemia, with long-term current use of insulin Family History Mother Diabetes Brother Diabetes Surgical History History of cholecystectomy Social History Household Members: Family Housing: House Alcohol intake: never Patient Tobacco Use Status: Current everyday Tobacco user Tobacco use type: Cigarette Cigarette Packs Per Day: 0.3 Cigarettes Per Day: 6.0 Smoked in Last 30 Days: Yes e-Cigarette/Vaping Use: Never Used Use of substances other than those prescribed or required for medical reasons: No Advance Directives: Yes Advance Directives on File: Yes Advance Directives Date on File: 07/06/24 Do you have a plan to hurt others: No Plan Patient : No service: No Current occupational status: unemployed Current occupation: right hand dominant Meds Allergies Allergy/AdvReac Type Severity Reaction Status Date / Time lisinopril (LISINOPRIL) Allergy Unknown UNKNOWN Verified 07/07/25 10:35 Penicillins Allergy Unknown RASH Verified 07/07/25 10:35 sulfamethoxazole Allergy Unknown RASH Verified 07/07/25 10:35 trimethoprim Allergy Unknown RASH Verified 07/07/25 10:35 Home Medications ?Medication ?Instructions ?Recorded ?Confirmed ?Last Taken ?Type blood sugar diagnostic (FreeStyle #10 ea 07/24/20 03/27/22 Unknown History Lite Strips) blood-glucose meter (FreeStyle #1 ea 07/24/20 03/27/22 Unknown History Lite Meter kit) lancets 28 gauge (FreeStyle #100 ea 07/24/20 03/27/22 Unknown History Lancets) gabapentin 100 mg capsule 2 cap PO TID 01/13/22 07/07/25 07/07/25 History insulin glargine 100 unit/mL 39 unit subcut BEDTIME 01/13/22 07/07/25 07/06/25 History subcutaneous solution (Lantus U-100 Insulin) levothyroxine 75 mcg tablet 1 tab PO DAILY@0600 03/27/22 07/07/25 07/07/25 History montelukast 10 mg tablet 1 tab PO BEDTIME 03/27/22 07/07/25 07/06/25 History rosuvastatin 40 mg tablet 1 tab PO DAILY 03/27/22 07/07/25 07/07/25 History olmesartan 20 mg tablet 20 mg PO DAILY 03/28/22 07/07/25 07/07/25 History albuterol sulfate 90 mcg/actuation 2 puff inhalation Q6H PRN 07/02/24 07/07/25 Unknown History aerosol inhaler (Ventolin HFA) Shortness Of Breath Or Wheezing aspirin 81 mg tablet,delayed 81 mg PO DAILY 07/02/24 07/07/25 07/07/25 History release cyanocobalamin (vitamin B-12) 2,000 mcg PO DAILY 07/02/24 07/07/25 07/07/25 History 1,000 mcg tablet insulin lispro 100 unit/mL 1 sliding scale dose subcut TIDAC 07/02/24 07/07/25 07/07/25 History subcutaneous pen metformin 500 mg tablet 500 mg PO BIDWM 07/02/24 07/07/25 07/07/25 History quetiapine 200 mg tablet 200 mg PO BEDTIME 07/02/24 07/07/25 07/06/25 History hydroxyzine pamoate 25 mg capsule 25 mg PO BID PRN anxiety 02/21/25 07/07/25 Unknown History azithromycin 500 mg tablet 500 mg PO DAILY 07/07/25 07/07/25 07/07/25 History empagliflozin 10 mg tablet 10 mg PO DAILY 07/07/25 07/07/25 07/07/25 History (Jardiance) famotidine 20 mg tablet 20 mg PO BID 07/07/25 07/07/25 07/07/25 History phenylephrine 5 2 cap PO Q4H PRN Congestion 07/07/25 07/07/25 Unknown History mg-dextromethorphan 10 mg-acetaminophen 325 mg capsule (Vicks DayQuil Cold and Flu Relief) psyllium husk 3.4 gram/5.4 gram 1 tbsp PO DAILY PRN Constipation 07/07/25 07/07/25 Unknown History oral powder (Metamucil) sertraline 100 mg tablet 100 mg PO DAILY 07/07/25 07/07/25 07/07/25 History Physical Exam Vital Signs and Narrative: Vital Signs: Last Vital Signs Temp 97.6 F 07/07/25 13:13 Pulse 74 07/07/25 13:13 Resp 16 07/07/25 13:13 BP 121/46 L 07/07/25 13:13 Pulse Ox 97 07/07/25 13:13 O2 Del Method Room Air 07/07/25 13:13 BMI result Body Mass Index 39.2 Const: General: alert and awake Nutritional Appearance: obese Orientation/consciousness: patient oriented x3 Resp: Other: b/l expiratory wheezing Effort & Inspection: normal respiratory effort and no use of accessory muscles Cardio: Rate: regular rate GI: Inspection: No distended Palpation (GI): Soft to palpation Neuro: General: patient oriented x3, moves all extremities and CN's II-XI intact bilaterally Results Labs 07/07/25 11:02 07/07/25 11:02 Labs: Laboratory Results - last 24 hr 07/07/25 07/07/25 07/07/25 11:01 11:02 11:10 MCV 79.4 L MCH 26.4 L MCHC 33.2 RDW 12.9 Plt Count 171 MPV 11.4 Immature Gran % (Auto) 0.7 H Neut % (Auto) 61.6 Lymph % (Auto) 29.3 [place] % (Auto) 7.4 Eos % (Auto) 0.7 Baso % (Auto) 0.3 Lymph # (Auto) 2.1 [place] # (Auto) 0.5 Eos # (Auto) 0.1 Baso # (Auto) 0.0 Abs Immat Gran (auto) 0.05 H Absolute Neuts (auto) 4.3 Absolute Nucleated RBC 0.000 Nucleated RBC % (auto) 0.0 D-Dimer High Sensitivty VBG pH 7.27 L VBG pCO2 54 VBG pO2 43 VBG HCO3 25 VBG O2 Saturation 63.0 VBG Base Excess -2.2 Anion Gap 11 L Estim Creat Clear Calc 30.1 Estimated GFR 24 POC Glucose Random Glucose 421 H* Lactic Acid 2.5 H* Calcium 8.2 L Magnesium 2.1 Total Bilirubin 0.4 Direct Bilirubin 0.1 AST 13 ALT 10 Alkaline Phosphatase 135 H Lactate Dehydrogenase 123 Troponin I High Sens < 2.7 C-Reactive Protein 3.46 H Total Protein 6.4 L Albumin 3.8 Lipase 27 Procalcitonin 0.17 Influenza Type A (PCR) NEGATIVE Influenza Type B (PCR) NEGATIVE RSV RNA Qual (PCR) NEGATIVE SARS-CoV-2 RNA (RT-PCR) POSITIVE A 07/07/25 07/07/25 07/07/25 11:56 12:01 12:59 MCV MCH MCHC RDW Plt Count MPV Immature Gran % (Auto) Neut % (Auto) Lymph % (Auto) [place] % (Auto) Eos % (Auto) Baso % (Auto) Lymph # (Auto) [place] # (Auto) Eos # (Auto) Baso # (Auto) Abs Immat Gran (auto) Absolute Neuts (auto) Absolute Nucleated RBC Nucleated RBC % (auto) D-Dimer High Sensitivty < 150 VBG pH 7.32 VBG pCO2 49 VBG pO2 53 VBG HCO3 25 VBG O2 Saturation 81.0 VBG Base Excess -0.6 Anion Gap Estim Creat Clear Calc Estimated GFR POC Glucose 317 H Random Glucose Lactic Acid Calcium Magnesium Total Bilirubin Direct Bilirubin AST ALT Alkaline Phosphatase Lactate Dehydrogenase Troponin I High Sens C-Reactive Protein Total Protein Albumin Lipase Procalcitonin Influenza Type A (PCR) Influenza Type B (PCR) RSV RNA Qual (PCR) SARS-CoV-2 RNA (RT-PCR) Imaging Radiologist's Impressions: Impressions Chest X-Ray 07/07/25 12:30 IMPRESSION: No active lung disease. Electronically signed by: Kadien Werner MD 07/07/2025 12:44 PM [facility] Assessment and Plan (1) COVID-19: Status: Acute (2) Asthma with acute exacerbation: Qualifiers: Asthma persistence: persistent Asthma severity: moderate Qualified Code(s): J45.41 - Moderate persistent asthma with (acute) exacerbation Status: Acute (3) Bronchitis: Status: Acute Plan This is a 55-year-old female with a history of asthma/COPD, diabetes, hypertension, hyperlipidemia, recently seen in the emergency department and diagnosed to have COVID-19 who returns with ongoing shortness of breath and decreased oral intake found to have acute kidney injury Acute COPD/asthma exacerbation/acute bronchitis Due to recent COVID-19 infection CXR negative for PNA IV solu-medrol, breathing treatments IV azithromycin JULIO SCr 2.12, baseline 0.8-1 likely prerenal due to decreased po intake from acute viral infection hold arb; avoid NSAIDs IVF trend BMP Hyponatremia likely due to volume depletion follow BMP acute lactic acidosis likely type 2 due to frequent albuterol use, volume depletion not due to sepsis trend IDDM with steroid induced hyperglycemia SSI, POCs, ADA diet Continue Jardiance Hold metformin continue dose adjusted Lantus Tobacco dependence Smoking cessation advised NRT Morbid obesity BMI 39.2 weight loss encouraged Mood Continue sertraline, hydroxyzine, seroquel Hypothyroidism Continue Synthroid HLD continue statin dvt ppx - heparin Patient will likely require 2 midnight stay in the hospital for management of asthma/COPD exacerbation requiring systemic steroids as well as JULIO requiring IV fluids and close monitoring of renal function due to multiple chronic comorbidities and high risk for decompensation Quality Stroke Does the patient have a stroke diagnosis?: No VTE Prior VTE?: No VTE Risk Level:: Medical - moderate - high VTE Device Contraindication: N/A - Device Ordered VTE Drug Contraindication: N/A - Med Ordered
[2025-07-07 14:01] LABS: Appearance Urine Clear; Glucose Urine UA 100 mg/dL (Negative); PH 5.5 (5.0-9.0); Specific Gravity - Urine <= 1.005 (1.005-1.025); UMIC TRIGGER UACC YES
[2025-07-07] MEDS: Nicotine 7 MG PATCH.TD24 TRANSDERMA (14:04)
[2025-07-07] MEDS: guaiFENesin DM 100/10/5 ML 5 ML SYRUP PO ×2 (14:04→20:34)
[2025-07-07 14:06] LABS: UACC Culture Trigger YES
[2025-07-07] MEDS: Lactated Ringers 1,000 ML 100 ML IVCONT (14:07)
--- NOTE | 2025-07-07 14:13 | PHA.MEDREC ---
Addendum entered by Charles Varela RPh 07/07/25 14:55: MED REC REVIEWED BY [facility] Original Note: Pharmacy Consult ? Medication Reconciliation Pharmacy has completed the medication reconciliation. Spoke with pt and pt daughter at bedside, who was able to interperate for pt. Pt confirmed she takes Azithromycin 500mg once daily and confirmed she started it 2 days ago, she is takes 39 or 40 units of her Lantus at bedtime, her Insulin Lispro per sliding scale TIDAC, she was suppose to start Mounjaro today but was not able to, she states she still takes Levothyrxine (LF 08/2024), Metformin (No claims) and Rosuvastatin (LF in claims 10/26 for 90) and is being filled at [facility]; I called pt pharmacy and they confirmed Leovothyroxine was LF 08/2024, Metformin LF 09/2023 and Rosuvastatin 40mg tabs LF 05/05/2025 for 90 days.
[2025-07-07 14:15] LABS: ~Lactic Acid-LAB USE ONLY 2.3 mmol/L (0.5-2.0)
[2025-07-07] MEDS: Albuterol/Iprat 2.5/0.5MG 3 ML AMPUL.NEB INHALE ×2 (14:29→19:49)
[2025-07-07 15:47] LABS: Reflex Lactate? 2 Y
[2025-07-07 16:43] LABS: ~Lactic Acid-LAB USE ONLY 0.8 mmol/L (0.5-2.0)
[2025-07-07 17:42] LABS: Glucose, Whole Blood 556 mg/dL (60-115)
[2025-07-07 19:09] LABS: Glucose, Whole Blood 538 mg/dL (60-115)
--- NOTE | 2025-07-07 20:01 | HO.NURTONUR ---
Chief Complaint: cough This is a 55-year-old female with history of asthma who presents to the emergency department with shortness of breath. Patient seen emergency department on July 01 with similar symptoms. At that time she tested positive for coronavirus. She was discharged home with oral prednisone. She returns to the emergency department today cough productive of yellow phlegm. She reports shortness of breath as well as pain in her chest and upper abdomen when she coughs. She reports generalized fatigue and decreased oral intake over the past several days. In the emergency department her blood sugar was noted to be elevated at 421, she received a dose of regular insulin. Creatinine was noted to be elevated at 2.12 which significantly above her baseline, sodium was low at 130, lactic acid elevated at 2.5. She was treated with IV Solu-Medrol, albuterol, IV magnesium due to wheezing on exam. She received a dose of IV levofloxacin and was treated with IV fluid due to elevated lactic acid. Due to acute kidney injury and persistent respiratory symptoms she will be admitted to the hospital for further management. Plan: Patient will likely require 2 midnight stay in the hospital for management of asthma/COPD exacerbation requiring systemic steroids as well as JULIO requiring IV fluids and close monitoring of renal function due to multiple chronic comorbidities and high risk for decompensation
[2025-07-07] MEDS: Insulin Glargine,Hum.rec.anlog 100 UNIT/ML 10 ML VIAL 39 UNIT SUBCUT (20:29)
[2025-07-07 20:56] LABS: Glucose, Whole Blood 575 mg/dL (60-115)
[2025-07-07 21:29] LABS: Glucose, Whole Blood 570 mg/dL (60-115)
[2025-07-07] MEDS: 0.9 % Sodium Chloride Flush 3 ML SYRINGE IVFLUSH (22:06)
[2025-07-07 22:32] LABS: Glucose, Whole Blood 509 mg/dL (60-115)
[2025-07-07 22:51] LABS: Anion Gap 12 (12-20); Blood Urea Nitrogen 38 mg/dL (9-16); Calcium 8.8 mg/dL (8.4-10.2); Carbon Dioxide 24 mmol/L (22-29); Chloride 98 mmol/L (96-108); Creatinine Clr Calc Pharmacy 33.6; Estimated Glomerular Filt Rate 27; Magnesium 1.7 mg/dL (1.6-2.6); Potassium 4.8 mmol/L (3.3-5.1); Sodium 129 mmol/L (135-145)
[2025-07-08] VITALS (9 sets, daily range): BP systolic 129–154; BP diastolic 67–72; PULSE 56–72; RESP 16–18; TEMP 36.1–36.9; O2SAT 94–97
[2025-07-08] MEDS: Lactated Ringers 1,000 ML 100 ML IVCONT ×3 (00:09→21:19)
[2025-07-08 00:46] LABS: Glucose, Whole Blood 367 mg/dL (60-115)
[2025-07-08 02:44] LABS: Glucose, Whole Blood 329 mg/dL (60-115)
[2025-07-08 06:20] LABS: Glucose, Whole Blood 350 mg/dL (60-115)
[2025-07-08 07:38] LABS: Glucose, Whole Blood 388 mg/dL (60-115)
[2025-07-08 08:15] LABS: Anion Gap 14 (12-20); Blood Urea Nitrogen 32 mg/dL (9-16); Calcium 9.1 mg/dL (8.4-10.2); Carbon Dioxide 24 mmol/L (22-29); Chloride 101 mmol/L (96-108); Creatinine Clr Calc Pharmacy 51.5; Estimated Glomerular Filt Rate 45; Potassium 4.9 mmol/L (3.3-5.1); Sodium 134 mmol/L (135-145)
[2025-07-08] MEDS: Aspirin Enteric Coated 81 MG TABLET.DR PO (08:34)
[2025-07-08] MEDS: guaiFENesin DM 100/10/5 ML 5 ML SYRUP PO ×3 (08:34→21:19)
[2025-07-08] MEDS: Nicotine 7 MG PATCH.TD24 TRANSDERMA (08:35)
[2025-07-08] MEDS: 0.9 % Sodium Chloride Flush 3 ML SYRINGE IVFLUSH (08:36)
[2025-07-08] MEDS: Albuterol/Iprat 2.5/0.5MG 3 ML AMPUL.NEB INHALE ×3 (08:38→19:01)
[2025-07-08] MEDS: Milk of Magnesia 30 ML ORAL.SUSP PO (08:45)
--- NOTE | 2025-07-08 10:33 | HO.PM.IMPN ---
Subjective Subjective Date of Service: 07/08/25 Interval History: Patient seen examined at bedside this morning, patient states that her breathing has improved, mentions that her blood sugars have not been under control, with last A1c around 10. Review of Systems Review of Systems: Yes all other systems are reviewed and are negative Physical Exam Exam: Exam: General: AxOx3, mild distress Head: AT/NC ENT: Moist mucous membranes Neck: supple CVS; RRR, S1 S2 normal Lungs: Bilateral rales Abd: Soft non tender, non distended Ext: No edema and no calf tenderness MSK: moving all 4 limbs Skin: No cyanosis or edema Psych: Cooperative with exam Neurology: no focal deficit Vital Signs: Vital Signs: Last Vital Signs Temp 97.7 F 07/08/25 07:18 Pulse 56 07/08/25 08:37 Resp 18 07/08/25 08:37 BP 154/68 H 07/08/25 07:18 Pulse Ox 94 07/08/25 07:18 O2 Del Method Room Air 07/08/25 07:18 BMI result Body Mass Index 39.2 Objective Data Active Medications Acetaminophen (Acetaminophen 325 Mg Tablet) 650 mg PO Q6H PRN PRN Reason: Pain, Mild 1-3,fever,headache Albuterol Sulfate (Albuterol Sulfate (0.083%) 2.5 Mg/3 Ml Vial.Neb) 2.5 mg INHALE Q4H PRN PRN Reason: Shortness of Breath/Wheezing Albuterol/Ipratropium (Albuterol/Iprat 2.5/0.5mg 3 Ml Ampul.Neb) 3 ml INHALE RQ6H WHILE AWAKE [facility] Last Admin: 07/08/25 08:38 Dose: 3 ml Documented By: ELODIA Aspirin (Aspirin Enteric Coated 81 Mg Tablet.) 81 mg PO DAILY [facility] Last Admin: 07/08/25 08:34 Dose: 81 mg Documented By: HARRIS Atorvastatin Calcium (Atorvastatin Calcium 80 Mg Tablet) 80 mg PO DAILY [facility] Last Admin: 07/08/25 08:34 Dose: 80 mg Documented By: HARRIS Benzocaine (Throat Lozenge, Medicated Lozenge) 1 lozenge MUCOUS MEM Q2H PRN PRN Reason: Sore Throat Benzonatate (Benzonatate 100 Mg Capsule) 100 mg PO TID PRN PRN Reason: Cough Calcium Carbonate (Calcium Carbonate 750 Mg Tab.Chew) 750 mg PO Q4H PRN PRN Reason: Heartburn Cyanocobalamin (Cyanocobalamin (Vitamin B-12) 1,000 Mcg Tablet) 2,000 mcg PO DAILY [facility] Last Admin: 07/08/25 08:34 Dose: 2,000 mcg Documented By: HARRIS Dextrose (Dextrose 50 % 25 Gm/50 Ml Syringe) 25 gm IVPUSH Q15M PRN; Protocol PRN Reason: per Hypoglycemia Standing Ord. Empagliflozin (Empagliflozin 10 Mg Tablet) 10 mg PO DAILY [facility] Last Admin: 07/08/25 08:34 Dose: 10 mg Documented By: HARRIS Famotidine (Famotidine 20 Mg Tablet) 20 mg PO BID [facility] Last Admin: 07/08/25 08:34 Dose: 20 mg Documented By: HARRIS Gabapentin (Gabapentin 100 Mg Capsule) 200 mg PO TID [facility] Last Admin: 07/08/25 08:34 Dose: 200 mg Documented By: HARRIS Glucose (Glucose Gel 15 Gm Gel..Gram.) 15 gm PO Q15M PRN; Protocol PRN Reason: per Hypoglycemia Standing Ord. Guaifenesin/Dextromethorphan (Guaifenesin Dm 100/10/5 Ml 5 Ml Syrup) 5 ml PO TID [facility] Last Admin: 07/08/25 08:34 Dose: 5 ml Documented By: HARRIS Heparin Sodium (Porcine) (Heparin Sodium,Porcine 5,000 Unit/Ml Vial) 5,000 unit SUBCUT Q12H [facility] Last Admin: 07/08/25 05:30 Dose: 5,000 unit Documented By: JANELLE Hydroxyzine HCl (Hydroxyzine Hcl 25 Mg Tablet) 25 mg PO BID PRN PRN Reason: Anxiety Azithromycin 500 mg/ Sodium (Chloride) 250 mls @ 125 mls/hr IV Q24H [facility] Lactated Ringer's (Lr) 1,000 mls @ 100 mls/hr IVCONT .Q10H [facility] Last Admin: 07/08/25 00:09 Dose: 100 mls/hr Documented By: JANELLE Insulin Glargine (Insulin Glargine,Hum.Rec.Anlog 100 Unit/Ml 10 Ml Vial) 42 unit SUBCUT BEDTIME [facility] Insulin Human Lispro (Insulin Lispro 100 Unit/Ml 3 Ml Vial) 0 unit SUBCUT QIDACHS [facility]; Protocol Last Admin: 07/08/25 08:35 Dose: 10 unit Documented By: HARRIS Insulin Human Lispro (Insulin Lispro 100 Unit/Ml 3 Ml Vial) 5 unit SUBCUT QIDACHS [facility] Stop: 07/11/25 11:29 Levothyroxine Sodium (Levothyroxine Sodium 75 Mcg Tablet) 75 mcg PO DAILY@0600 [facility] Last Admin: 07/08/25 05:30 Dose: 75 mcg Documented By: JANELLE Magnesium Hydroxide (Milk Of Magnesia 30 Ml Oral.Susp) 30 ml PO DAILY PRN PRN Reason: Constipation Last Admin: 07/08/25 08:45 Dose: 30 ml Documented By: HARRIS Melatonin (Melatonin 3 Mg Tablet) 6 mg PO BEDTIME PRN PRN Reason: Insomnia Methylprednisolone Sodium Succinate (Methylprednisolone Sod Succ 40 Mg/Ml Vial) 40 mg IVPUSH Q12H [facility] Last Admin: 07/07/25 22:05 Dose: 40 mg Documented By: JANELLE Montelukast Sodium (Montelukast Sodium 10 Mg Tablet) 10 mg PO BEDTIME [facility] Last Admin: 07/07/25 20:28 Dose: 10 mg Documented By: JAIME Nicotine (Nicotine 7 Mg Patch.Td24) 7 mg TRANSDERMA DAILY [facility] Last Admin: 07/08/25 08:35 Dose: 7 mg Documented By: HARRIS Nicotine Polacrilex (Nicotine Polacrilex 2 Mg Gum) 2 mg BUCCAL Q2H PRN PRN Reason: Nicotine Cravings Quetiapine Fumarate (Quetiapine Fumarate 200 Mg Tablet) 200 mg PO BEDTIME [facility] Last Admin: 07/07/25 22:05 Dose: 200 mg Documented By: JANELLE Sertraline HCl (Sertraline Hcl 100 Mg Tablet) 100 mg PO DAILY [facility] Last Admin: 07/08/25 08:34 Dose: 100 mg Documented By: HARRIS Sodium Chloride (0.9 % Sodium Chloride Flush 3 Ml Syringe) 3 ml IVFLUSH QSHIFT [facility] Last Admin: 07/08/25 08:36 Dose: 3 ml Documented By: HARRIS Labs 07/07/25 11:02 07/08/25 07:09 Labs: Laboratory Results - last 24 hr 07/07/25 07/07/25 07/07/25 11:01 11:02 11:10 MCV 79.4 L MCH 26.4 L MCHC 33.2 RDW 12.9 Plt Count 171 MPV 11.4 Immature Gran % (Auto) 0.7 H Neut % (Auto) 61.6 Lymph % (Auto) 29.3 Mcpherson % (Auto) 7.4 Eos % (Auto) 0.7 Baso % (Auto) 0.3 Lymph # (Auto) 2.1 Mcpherson # (Auto) 0.5 Eos # (Auto) 0.1 Baso # (Auto) 0.0 Abs Immat Gran (auto) 0.05 H Absolute Neuts (auto) 4.3 Absolute Nucleated RBC 0.000 Nucleated RBC % (auto) 0.0 D-Dimer High Sensitivty VBG pH 7.27 L VBG pCO2 54 VBG pO2 43 VBG HCO3 25 VBG O2 Saturation 63.0 VBG Base Excess -2.2 Anion Gap 11 L Estim Creat Clear Calc 30.1 Estimated GFR 24 POC Glucose Random Glucose 421 H* Lactic Acid 2.5 H* Lactic Acid F/U @ 2Hr Lactic Acid F/U @ 4Hr Calcium 8.2 L Phosphorus Magnesium 2.1 Total Bilirubin 0.4 Direct Bilirubin 0.1 AST 13 ALT 10 Alkaline Phosphatase 135 H Lactate Dehydrogenase 123 Troponin I High Sens < 2.7 C-Reactive Protein 3.46 H Total Protein 6.4 L Albumin 3.8 Lipase 27 Procalcitonin 0.17 Urine Color Urine Appearance Urine pH Ur Specific Jay Urine Protein Urine Glucose (UA) Urine Ketones Urine Blood Urine Nitrite Ur Leukocyte Esterase Urine RBC Urine WBC Ur Squamous Epith Cells Urine Bacteria Hyaline Casts Influenza Type A (PCR) NEGATIVE Influenza Type B (PCR) NEGATIVE RSV RNA Qual (PCR) NEGATIVE SARS-CoV-2 RNA (RT-PCR) POSITIVE A 07/07/25 07/07/25 07/07/25 11:56 12:01 12:59 MCV MCH MCHC RDW Plt Count MPV Immature Gran % (Auto) Neut % (Auto) Lymph % (Auto) Mcpherson % (Auto) Eos % (Auto) Baso % (Auto) Lymph # (Auto) Mcpherson # (Auto) Eos # (Auto) Baso # (Auto) Abs Immat Gran (auto) Absolute Neuts (auto) Absolute Nucleated RBC Nucleated RBC % (auto) D-Dimer High Sensitivty < 150 VBG pH 7.32 VBG pCO2 49 VBG pO2 53 VBG HCO3 25 VBG O2 Saturation 81.0 VBG Base Excess -0.6 Anion Gap Estim Creat Clear Calc Estimated GFR POC Glucose 317 H Random Glucose Lactic Acid Lactic Acid F/U @ 2Hr Lactic Acid F/U @ 4Hr Calcium Phosphorus Magnesium Total Bilirubin Direct Bilirubin AST ALT Alkaline Phosphatase Lactate Dehydrogenase Troponin I High Sens C-Reactive Protein Total Protein Albumin Lipase Procalcitonin Urine Color Urine Appearance Urine pH Ur Specific Jay Urine Protein Urine Glucose (UA) Urine Ketones Urine Blood Urine Nitrite Ur Leukocyte Esterase Urine RBC Urine WBC Ur Squamous Epith Cells Urine Bacteria Hyaline Casts Influenza Type A (PCR) Influenza Type B (PCR) RSV RNA Qual (PCR) SARS-CoV-2 RNA (RT-PCR) 07/07/25 07/07/25 07/07/25 13:44 13:55 16:23 MCV MCH MCHC RDW Plt Count MPV Immature Gran % (Auto) Neut % (Auto) Lymph % (Auto) Mcpherson % (Auto) Eos % (Auto) Baso % (Auto) Lymph # (Auto) Mcpherson # (Auto) Eos # (Auto) Baso # (Auto) Abs Immat Gran (auto) Absolute Neuts (auto) Absolute Nucleated RBC Nucleated RBC % (auto) D-Dimer High Sensitivty VBG pH VBG pCO2 VBG pO2 VBG HCO3 VBG O2 Saturation VBG Base Excess Anion Gap Estim Creat Clear Calc Estimated GFR POC Glucose Random Glucose Lactic Acid Lactic Acid F/U @ 2Hr 2.3 H* Lactic Acid F/U @ 4Hr 0.8 Calcium Phosphorus Magnesium Total Bilirubin Direct Bilirubin AST ALT Alkaline Phosphatase Lactate Dehydrogenase Troponin I High Sens C-Reactive Protein Total Protein Albumin Lipase Procalcitonin Urine Color Straw Urine Appearance Clear Urine pH 5.5 Ur Specific Jay <= 1.005 Urine Protein Negative Urine Glucose (UA) 100 H Urine Ketones Negative Urine Blood Negative Urine Nitrite Negative Ur Leukocyte Esterase Small (1+) H Urine RBC 0-2 Urine WBC 0-5 Ur Squamous Epith Cells 3-5 Urine Bacteria None Seen Hyaline Casts 3-5 Influenza Type A (PCR) Influenza Type B (PCR) RSV RNA Qual (PCR) SARS-CoV-2 RNA (RT-PCR) 07/07/25 07/07/25 07/07/25 17:38 19:04 20:51 MCV MCH MCHC RDW Plt Count MPV Immature Gran % (Auto) Neut % (Auto) Lymph % (Auto) Mcpherson % (Auto) Eos % (Auto) Baso % (Auto) Lymph # (Auto) Mcpherson # (Auto) Eos # (Auto) Baso # (Auto) Abs Immat Gran (auto) Absolute Neuts (auto) Absolute Nucleated RBC Nucleated RBC % (auto) D-Dimer High Sensitivty VBG pH VBG pCO2 VBG pO2 VBG HCO3 VBG O2 Saturation VBG Base Excess Anion Gap Estim Creat Clear Calc Estimated GFR POC Glucose 556 H* 538 H* 575 H* Random Glucose Lactic Acid Lactic Acid F/U @ 2Hr Lactic Acid F/U @ 4Hr Calcium Phosphorus Magnesium Total Bilirubin Direct Bilirubin AST ALT Alkaline Phosphatase Lactate Dehydrogenase Troponin I High Sens C-Reactive Protein Total Protein Albumin Lipase Procalcitonin Urine Color Urine Appearance Urine pH Ur Specific Jay Urine Protein Urine Glucose (UA) Urine Ketones Urine Blood Urine Nitrite Ur Leukocyte Esterase Urine RBC Urine WBC Ur Squamous Epith Cells Urine Bacteria Hyaline Casts Influenza Type A (PCR) Influenza Type B (PCR) RSV RNA Qual (PCR) SARS-CoV-2 RNA (RT-PCR) 07/07/25 07/07/25 07/07/25 21:26 22:17 22:29 MCV MCH MCHC RDW Plt Count MPV Immature Gran % (Auto) Neut % (Auto) Lymph % (Auto) Mcpherson % (Auto) Eos % (Auto) Baso % (Auto) Lymph # (Auto) Mcpherson # (Auto) Eos # (Auto) Baso # (Auto) Abs Immat Gran (auto) Absolute Neuts (auto) Absolute Nucleated RBC Nucleated RBC % (auto) D-Dimer High Sensitivty VBG pH VBG pCO2 VBG pO2 VBG HCO3 VBG O2 Saturation VBG Base Excess Anion Gap 12 Estim Creat Clear Calc 33.6 Estimated GFR 27 POC Glucose 570 H* 509 H* Random Glucose 575 H* Lactic Acid Lactic Acid F/U @ 2Hr Lactic Acid F/U @ 4Hr Calcium 8.8 D Phosphorus 3.0 Magnesium 1.7 Total Bilirubin Direct Bilirubin AST ALT Alkaline Phosphatase Lactate Dehydrogenase Troponin I High Sens C-Reactive Protein Total Protein Albumin Lipase Procalcitonin Urine Color Urine Appearance Urine pH Ur Specific Jay Urine Protein Urine Glucose (UA) Urine Ketones Urine Blood Urine Nitrite Ur Leukocyte Esterase Urine RBC Urine WBC Ur Squamous Epith Cells Urine Bacteria Hyaline Casts Influenza Type A (PCR) Influenza Type B (PCR) RSV RNA Qual (PCR) SARS-CoV-2 RNA (RT-PCR) 07/08/25 07/08/25 07/08/25 00:42 02:40 06:15 MCV MCH MCHC RDW Plt Count MPV Immature Gran % (Auto) Neut % (Auto) Lymph % (Auto) Mcpherson % (Auto) Eos % (Auto) Baso % (Auto) Lymph # (Auto) Mcpherson # (Auto) Eos # (Auto) Baso # (Auto) Abs Immat Gran (auto) Absolute Neuts (auto) Absolute Nucleated RBC Nucleated RBC % (auto) D-Dimer High Sensitivty VBG pH VBG pCO2 VBG pO2 VBG HCO3 VBG O2 Saturation VBG Base Excess Anion Gap Estim Creat Clear Calc Estimated GFR POC Glucose 367 H* 329 H 350 H* Random Glucose Lactic Acid Lactic Acid F/U @ 2Hr Lactic Acid F/U @ 4Hr Calcium Phosphorus Magnesium Total Bilirubin Direct Bilirubin AST ALT Alkaline Phosphatase Lactate Dehydrogenase Troponin I High Sens C-Reactive Protein Total Protein Albumin Lipase Procalcitonin Urine Color Urine Appearance Urine pH Ur Specific Jay Urine Protein Urine Glucose (UA) Urine Ketones Urine Blood Urine Nitrite Ur Leukocyte Esterase Urine RBC Urine WBC Ur Squamous Epith Cells Urine Bacteria Hyaline Casts Influenza Type A (PCR) Influenza Type B (PCR) RSV RNA Qual (PCR) SARS-CoV-2 RNA (RT-PCR) 07/08/25 07/08/25 07:09 07:14 MCV MCH MCHC RDW Plt Count MPV Immature Gran % (Auto) Neut % (Auto) Lymph % (Auto) Mcpherson % (Auto) Eos % (Auto) Baso % (Auto) Lymph # (Auto) Mcpherson # (Auto) Eos # (Auto) Baso # (Auto) Abs Immat Gran (auto) Absolute Neuts (auto) Absolute Nucleated RBC Nucleated RBC % (auto) D-Dimer High Sensitivty VBG pH VBG pCO2 VBG pO2 VBG HCO3 VBG O2 Saturation VBG Base Excess Anion Gap 14 Estim Creat Clear Calc 51.5 Estimated GFR 45 POC Glucose 388 H* Random Glucose 412 H* Lactic Acid Lactic Acid F/U @ 2Hr Lactic Acid F/U @ 4Hr Calcium 9.1 Phosphorus Magnesium Total Bilirubin Direct Bilirubin AST ALT Alkaline Phosphatase Lactate Dehydrogenase Troponin I High Sens C-Reactive Protein Total Protein Albumin Lipase Procalcitonin Urine Color Urine Appearance Urine pH Ur Specific Jay Urine Protein Urine Glucose (UA) Urine Ketones Urine Blood Urine Nitrite Ur Leukocyte Esterase Urine RBC Urine WBC Ur Squamous Epith Cells Urine Bacteria Hyaline Casts Influenza Type A (PCR) Influenza Type B (PCR) RSV RNA Qual (PCR) SARS-CoV-2 RNA (RT-PCR) Assessment and Plan (1) Type 2 diabetes mellitus with hyperglycemia, with long-term current use of insulin: Status: Acute (2) JULIO (acute kidney injury): Status: Acute (3) COPD exacerbation: Status: Acute Plan 55-year-old female with a history of asthma/COPD, diabetes, hypertension, hyperlipidemia, recently seen in the emergency department and diagnosed to have COVID-19 who returns with ongoing shortness of breath and decreased oral intake found to have acute kidney injury Acute COPD/asthma exacerbation/acute bronchitis, improving Due to recent COVID-19 infection CXR negative for PNA IV solu-medrol, breathing treatments continue IV azithromycin flutter valve and incentive spirometer ordered isolation precautions JULIO, likely prerenal due to decreased po intake from acute viral infection, improving SCr 2.12->1.2, baseline 0.8-1 hold arb; avoid NSAIDs IVF trend BMP Hyponatremia, improving likely due to volume depletion follow BMP lactic acidosis, resolved IDDM with steroid induced hyperglycemia, uncontrolled SSI, POCs, ADA diet Continue Jardiance Hold metformin continue dose adjusted Lantus, will increase basal insulin to 42, scheduled regular insulin 5 units premeals Tobacco dependence Smoking cessation advised NRT Morbid obesity BMI 39.2 weight loss encouraged Mood Continue sertraline, hydroxyzine, seroquel Hypothyroidism Continue Synthroid HLD continue statin dvt ppx - heparin Total time managing care of this patient today: 55 minutes. Quality Stroke Does the patient have a stroke diagnosis?: No VTE Prior VTE?: No VTE Risk Level:: Medical - moderate - high VTE Device Contraindication: N/A - Device Ordered VTE Drug Contraindication: N/A - Med Ordered
[2025-07-08 11:56] LABS: Glucose, Whole Blood 393 mg/dL (60-115)
[2025-07-08 16:20] LABS: Glucose, Whole Blood 354 mg/dL (60-115)
[2025-07-08 20:17] LABS: Glucose, Whole Blood 331 mg/dL (60-115)
[2025-07-08] MEDS: Insulin Glargine,Hum.rec.anlog 100 UNIT/ML 10 ML VIAL 42 UNIT SUBCUT (20:34)
[2025-07-08 23:18] LABS: Glucose, Whole Blood 198 mg/dL (60-115)
[2025-07-09] VITALS (8 sets, daily range): BP systolic 138–162; BP diastolic 63–74; PULSE 67–75; RESP 16–18; TEMP 36.2–37.4; O2SAT 92–99
[2025-07-09 03:17] LABS: Glucose, Whole Blood 188 mg/dL (60-115)
[2025-07-09] MEDS: 0.9 % Sodium Chloride Flush 3 ML SYRINGE IVFLUSH ×2 (03:55→21:30)
[2025-07-09] MEDS: Lactated Ringers 1,000 ML 100 ML IVCONT ×2 (07:08→07:10)
[2025-07-09] MEDS: Albuterol/Iprat 2.5/0.5MG 3 ML AMPUL.NEB INHALE ×3 (07:55→19:46)
[2025-07-09] MEDS: Aspirin Enteric Coated 81 MG TABLET.DR PO (08:27)
[2025-07-09] MEDS: Nicotine 7 MG PATCH.TD24 TRANSDERMA (08:28)
[2025-07-09] MEDS: guaiFENesin DM 100/10/5 ML 5 ML SYRUP PO ×3 (08:29→20:53)
[2025-07-09 08:32] LABS: Glucose, Whole Blood 251 mg/dL (60-115)
[2025-07-09 11:19] LABS: Glucose, Whole Blood 282 mg/dL (60-115)
--- NOTE | 2025-07-09 13:30 | P.PNIM_ITS ---
Subjective Subjective Date of Service: 07/09/25 Interval History: Patient seen examined at bedside this morning, patient states that her breathing has improved. Glucose improved. Continues with shortness of breath. Review of Systems Review of Systems: Yes all other systems are reviewed and are negative Physical Exam 2 Exam: Exam: General: AxOx3, No acute distress Head: AT/NC ENT: Moist mucous membranes Neck: supple CVS; RRR, S1 S2 normal Lungs: Coarse bilateral breath sounds with rales, improved Abd: Soft non tender, non distended Ext: No edema and no calf tenderness MSK: moving all 4 limbs Skin: No cyanosis or edema Psych: Cooperative with exam Neurology: no focal deficit Vital Signs: Vital Signs: Last Vital Signs Temp 98.8 F 07/09/25 11:54 Pulse 70 07/09/25 11:54 Resp 18 07/09/25 11:54 BP 142/65 H 07/09/25 11:54 Pulse Ox 93 07/09/25 11:54 O2 Del Method Room Air 07/09/25 11:54 BMI result Body Mass Index 39.2 Objective Data Active Medications Acetaminophen (Acetaminophen 325 Mg Tablet) 650 mg PO Q6H PRN PRN Reason: Pain, Mild 1-3,fever,headache Albuterol Sulfate (Albuterol Sulfate (0.083%) 2.5 Mg/3 Ml Vial.Neb) 2.5 mg INHALE Q4H PRN PRN Reason: Shortness of Breath/Wheezing Albuterol/Ipratropium (Albuterol/Iprat 2.5/0.5mg 3 Ml Ampul.Neb) 3 ml INHALE RQ6H WHILE AWAKE [facility] Last Admin: 07/09/25 07:55 Dose: 3 ml Documented By: MANDEEP Aspirin (Aspirin Enteric Coated 81 Mg Tablet.) 81 mg PO DAILY [facility] Last Admin: 07/09/25 08:27 Dose: 81 mg Documented By: HARRIS Atorvastatin Calcium (Atorvastatin Calcium 80 Mg Tablet) 80 mg PO DAILY [facility] Last Admin: 07/09/25 08:27 Dose: 80 mg Documented By: HARRIS Benzocaine (Throat Lozenge, Medicated Lozenge) 1 lozenge MUCOUS MEM Q2H PRN PRN Reason: Sore Throat Benzonatate (Benzonatate 100 Mg Capsule) 100 mg PO TID PRN PRN Reason: Cough Calcium Carbonate (Calcium Carbonate 750 Mg Tab.Chew) 750 mg PO Q4H PRN PRN Reason: Heartburn Cyanocobalamin (Cyanocobalamin (Vitamin B-12) 1,000 Mcg Tablet) 2,000 mcg PO DAILY [facility] Last Admin: 07/09/25 08:27 Dose: 2,000 mcg Documented By: HARRIS Dextrose (Dextrose 50 % 25 Gm/50 Ml Syringe) 25 gm IVPUSH Q15M PRN; Protocol PRN Reason: per Hypoglycemia Standing Ord. Empagliflozin (Empagliflozin 10 Mg Tablet) 10 mg PO DAILY [facility] Last Admin: 07/09/25 08:27 Dose: 10 mg Documented By: HARRIS Famotidine (Famotidine 20 Mg Tablet) 20 mg PO BID [facility] Last Admin: 07/09/25 08:42 Dose: 20 mg Documented By: HARRIS Gabapentin (Gabapentin 100 Mg Capsule) 200 mg PO TID [facility] Last Admin: 07/09/25 08:27 Dose: 200 mg Documented By: HARRIS Glucose (Glucose Gel 15 Gm Gel..Gram.) 15 gm PO Q15M PRN; Protocol PRN Reason: per Hypoglycemia Standing Ord. Guaifenesin/Dextromethorphan (Guaifenesin Dm 100/10/5 Ml 5 Ml Syrup) 5 ml PO TID [facility] Last Admin: 07/09/25 08:29 Dose: 5 ml Documented By: HARRIS Heparin Sodium (Porcine) (Heparin Sodium,Porcine 5,000 Unit/Ml Vial) 5,000 unit SUBCUT Q12H [facility] Last Admin: 07/09/25 05:25 Dose: 5,000 unit Documented By: JANELLE Hydroxyzine HCl (Hydroxyzine Hcl 25 Mg Tablet) 25 mg PO BID PRN PRN Reason: Anxiety Azithromycin 500 mg/ Sodium (Chloride) 250 mls @ 125 mls/hr IV Q24H [facility] Last Infusion: 07/08/25 16:00 Dose: Infused Documented By: HARRIS Lactated Ringer's (Lr) 1,000 mls @ 100 mls/hr IVCONT .Q10H [facility] Last Infusion: 07/09/25 07:10 Dose: Infused Documented By: JANELLE Insulin Glargine (Insulin Glargine,Hum.Rec.Anlog 100 Unit/Ml 10 Ml Vial) 42 unit SUBCUT BEDTIME [facility] Last Admin: 07/08/25 20:34 Dose: 42 unit Documented By: JANELLE Insulin Human Lispro (Insulin Lispro 100 Unit/Ml 3 Ml Vial) 0 unit SUBCUT QIDACHS [facility]; Protocol Last Admin: 07/09/25 12:03 Dose: 6 unit Documented By: HARRIS Insulin Human Lispro (Insulin Lispro 100 Unit/Ml 3 Ml Vial) 5 unit SUBCUT QIDAS [facility] Stop: 07/11/25 11:29 Last Admin: 07/09/25 12:03 Dose: 5 unit Documented By: HARRIS Levothyroxine Sodium (Levothyroxine Sodium 75 Mcg Tablet) 75 mcg PO DAILY@0600 [facility] Last Admin: 07/09/25 07:06 Dose: 75 mcg Documented By: JANELLE Magnesium Hydroxide (Milk Of Magnesia 30 Ml Oral.Susp) 30 ml PO DAILY PRN PRN Reason: Constipation Last Admin: 07/08/25 08:45 Dose: 30 ml Documented By: HARRIS Melatonin (Melatonin 3 Mg Tablet) 6 mg PO BEDTIME PRN PRN Reason: Insomnia Methylprednisolone Sodium Succinate (Methylprednisolone Sod Succ 40 Mg/Ml Vial) 40 mg IVPUSH Q12H [facility] Last Admin: 07/09/25 08:28 Dose: 40 mg Documented By: HARRIS Montelukast Sodium (Montelukast Sodium 10 Mg Tablet) 10 mg PO BEDTIME [facility] Last Admin: 07/08/25 20:34 Dose: 10 mg Documented By: JANELLE Nicotine (Nicotine 7 Mg Patch.Td24) 7 mg TRANSDERMA DAILY [facility] Last Admin: 07/09/25 08:28 Dose: 7 mg Documented By: HARRIS Nicotine Polacrilex (Nicotine Polacrilex 2 Mg Gum) 2 mg BUCCAL Q2H PRN PRN Reason: Nicotine Cravings Quetiapine Fumarate (Quetiapine Fumarate 200 Mg Tablet) 200 mg PO BEDTIME [facility] Last Admin: 07/08/25 20:34 Dose: 200 mg Documented By: JANELLE Sertraline HCl (Sertraline Hcl 100 Mg Tablet) 100 mg PO DAILY [facility] Last Admin: 07/09/25 08:27 Dose: 100 mg Documented By: HARRIS Sodium Chloride (0.9 % Sodium Chloride Flush 3 Ml Syringe) 3 ml IVFLUSH QSHIFT [facility] Last Admin: 07/09/25 08:30 Dose: Not Given Documented By: HARRIS Non-Admin Reason: IV Running Labs 07/07/25 11:02 07/08/25 07:09 Labs: Laboratory Results - last 24 hr 07/08/25 07/08/25 07/08/25 16:12 20:12 23:07 POC Glucose 354 H* 331 H 198 H 07/09/25 07/09/25 07/09/25 03:08 08:27 11:00 POC Glucose 188 H 251 H 282 H Microbiology Microbiology Results: Microbiology 07/07/25 11:01 Blood Culture - Preliminary Blood - Venous No growth after 48 hours. 07/07/25 11:02 Blood Culture - Preliminary Blood - Venous No growth after 24 hours. 07/07/25 14:52 Urine Culture - Final Urine clean catch - Clean Catch Midstream No growth. Assessment and Plan (1) COPD exacerbation: Status: Acute (2) JULIO (acute kidney injury): Status: Acute Plan 55-year-old female with a history of asthma/COPD, diabetes, hypertension, hyperlipidemia, recently seen in the emergency department and diagnosed to have COVID-19 who returns with ongoing shortness of breath and decreased oral intake found to have acute kidney injury Acute COPD/asthma exacerbation/acute bronchitis, improving Due to recent COVID-19 infection CXR negative for PNA IV solu-medrol, breathing treatments continue IV azithromycin Continue flutter valve and incentive spirometer isolation precautions JULIO, likely prerenal due to decreased po intake from acute viral infection, improving SCr 2.12->1.2, baseline 0.8-1 hold arb; avoid NSAIDs IVF repeat BMP for tomorrow Hyponatremia, improving likely due to volume depletion follow BMP IDDM with steroid induced hyperglycemia, uncontrolled SSI, POCs, ADA diet Continue Jardiance Hold metformin continue dose adjusted Lantus, basal insulin to 42 and regular insulin 5 units premeals Tobacco dependence Smoking cessation advised NRT Morbid obesity BMI 39.2 weight loss encouraged Mood Continue sertraline, hydroxyzine, seroquel Hypothyroidism Continue Synthroid HLD continue statin dvt ppx - heparin Total time managing care of this patient today: 35 minutes. Quality Stroke Does the patient have a stroke diagnosis?: No VTE Prior VTE?: No VTE Risk Level:: Medical - moderate - high VTE Device Contraindication: N/A - Device Ordered VTE Drug Contraindication: N/A - Med Ordered
--- NOTE | 2025-07-09 16:00 | MHC.CM.PN ---
PT WITH COVID, MILIND ATTEMPTED TO CONTACT PT VIA T/C, NO ANSWER CM ATTEMPTED TO CONTACT PTS PRIMARY HCP/DAUGHTER GARETH, CALL WENT TO . CM ATTEMPTED TO CONTACT PTS ALT HCP/DTR, EVELYNE HUIZAR OUT OF SERVICE CM CALLED GARETH AGAIN, SHE ANSWERED AND INDICATED SHE WAS WITH PT. THEY CONFIRM PT LIVES WITH ANOTHER DAUGHTER WHO IS HER ADULT FOSTER CARE PROVIDER PT USES A WALKER PRN PCP: [facility] HCP ON FILE AND VERIFIED DCP: HOME RESUME AF GARETH TO TRANSPORT GARETH: [phone]
[2025-07-09 16:23] LABS: Glucose, Whole Blood 412 mg/dL (60-115)
[2025-07-09 20:43] LABS: Glucose, Whole Blood 299 mg/dL (60-115)
[2025-07-09] MEDS: Insulin Glargine,Hum.rec.anlog 100 UNIT/ML 10 ML VIAL 42 UNIT SUBCUT (20:58)
[2025-07-10] VITALS: BP 139/67; PULSE 76; RESP 18; TEMP 36.6; O2SAT 93
[2025-07-10 00:03] LABS: Glucose, Whole Blood 167 mg/dL (60-115)
[2025-07-10 04:00] VITALS: BP 147/70; PULSE 79; RESP 18; TEMP 36.2; O2SAT 93
[2025-07-10 04:17] LABS: Glucose, Whole Blood 250 mg/dL (60-115)
[2025-07-10 07:28] VITALS: PULSE 79; RESP 18; O2SAT 95
[2025-07-10] MEDS: Albuterol/Iprat 2.5/0.5MG 3 ML AMPUL.NEB INHALE ×2 (07:28→13:22)
[2025-07-10 08:00] VITALS: BP 170/74; PULSE 72; RESP 21; TEMP 36.6; O2SAT 94
[2025-07-10 08:16] LABS: Anion Gap 16 (12-20); Blood Urea Nitrogen 31 mg/dL (9-16); Calcium 9.7 mg/dL (8.4-10.2); Carbon Dioxide 31 mmol/L (22-29); Chloride 100 mmol/L (96-108); Creatinine Clr Calc Pharmacy 48.8; Estimated Glomerular Filt Rate 42; Potassium 4.8 mmol/L (3.3-5.1); Sodium 142 mmol/L (135-145)
[2025-07-10 08:28] LABS: Glucose, Whole Blood 229 mg/dL (60-115)
[2025-07-10] MEDS: Aspirin Enteric Coated 81 MG TABLET.DR PO (09:04)
[2025-07-10] MEDS: 0.9 % Sodium Chloride Flush 3 ML SYRINGE IVFLUSH (09:06)
[2025-07-10] MEDS: Nicotine 7 MG PATCH.TD24 TRANSDERMA (09:06)
[2025-07-10] MEDS: guaiFENesin DM 100/10/5 ML 5 ML SYRUP PO (09:35)
[2025-07-10 11:35] LABS: Glucose, Whole Blood 221 mg/dL (60-115)
[2025-07-10 11:50] VITALS: BP 163/67; PULSE 78; RESP 18; TEMP 36.5; O2SAT 94
[2025-07-10 13:22] VITALS: PULSE 78; RESP 18; O2SAT 94
--- NOTE | 2025-07-10 13:51 | MHC.CM.PN ---
Patient has been medically cleared for dc to home today, self care.
--- NOTE | 2025-07-10 13:51 | PM.DS ---
DS: Providers Provider Date of Service: 07/10/25 Date of admission: 07/07/25 13:28 Date of discharge: 07/10/25 Primary care physician: CANDIS Boateng DS: Diagnosis Discharge Diagnosis (1) COPD exacerbation: Status: Acute (2) JULIO (acute kidney injury): Status: Acute DS: Summary Hospital Course Hospital Course: 55-year-old female with a history of asthma/COPD, diabetes, hypertension, hyperlipidemia, recently seen in the emergency department and diagnosed to have COVID-19 who returns with ongoing shortness of breath and decreased oral intake found to have acute kidney injury. Patient improved with IV fluids as well as steroids and antibiotics. Patient at this time not requiring any oxygen, tolerating diet, with improved coughing. Acute COPD/asthma exacerbation/acute bronchitis, improved Due to recent COVID-19 infection CXR negative for PNA continue breathing treatments will d/c with doxy 100mg BID x 5 days and medrol dose nikko continue flutter valve and incentive spirometer isolation precautions for 3 more days, then use mask for an extra 5 days JULIO, likely prerenal due to decreased po intake from acute viral infection, improved SCr 2.12->1.3 continue to hold arb and avoid NSAIDs, will decrease gabapentin to 100mg daily continue with PO fluid intake Hyponatremia, resolved 142 on 07/10 likely due to volume depletion IDDM with steroid induced hyperglycemia, uncontrolled SSI, POCs, ADA diet Continue Jardiance, basal insulin 42 and sliding scale at home, will defer regular insulin at this time as patient will complete medroldose nikko Hold metformin until seen by PCP Tobacco dependence Smoking cessation advised NRT Morbid obesity BMI 39.2 weight loss encouraged Mood Continue sertraline, hydroxyzine, seroquel Hypothyroidism Continue Synthroid HLD continue statin Time Attestation Discharge Coordination Time (in mins): 35 minutes Quality: Safe Use of Opioids Does Pt have an Active Cancer Diagnosis on the Problem List?: No Quality: Stroke Does the patient have a stroke diagnosis?: No Physical Exam Exam: Exam: General: AxOx3, No acute distress Head: AT/NC ENT: Moist mucous membranes Neck: supple CVS; RRR, S1 S2 normal Lungs: coarse bilateral breath sounds, minimal wheezing Abd: Soft non tender, non distended Ext: No edema and no calf tenderness MSK: moving all 4 limbs Skin: No cyanosis or edema Psych: Cooperative with exam Neurology: no focal deficit Vital Signs: Vital Signs: Last Vital Signs Temp 97.7 F 07/10/25 11:50 Pulse 78 07/10/25 13:22 Resp 18 07/10/25 13:22 BP 163/67 H 07/10/25 11:50 Pulse Ox 94 07/10/25 11:50 O2 Del Method Room Air 07/10/25 11:50 BMI result Body Mass Index 39.2 DS: Data Data Completed and Pending Labs on day of discharge: Laboratory Results - last 24 hr 07/09/25 07/09/25 07/10/25 16:15 19:49 00:00 Sodium Potassium Chloride Carbon Dioxide Anion Gap BUN Creatinine Estim Creat Clear Calc Estimated GFR POC Glucose 412 H* 299 H 167 H Random Glucose Calcium 07/10/25 07/10/25 07/10/25 04:09 07:05 08:14 Sodium 142 Potassium 4.8 Chloride 100 Carbon Dioxide 31 H Anion Gap 16 BUN 31 H Creatinine 1.31 Estim Creat Clear Calc 48.8 Estimated GFR 42 POC Glucose 250 H 229 H Random Glucose 220 H Calcium 9.7 D 07/10/25 11:07 Sodium Potassium Chloride Carbon Dioxide Anion Gap BUN Creatinine Estim Creat Clear Calc Estimated GFR POC Glucose 221 H Random Glucose Calcium Preliminary micro results at discharge 07/07/25 11:02 Blood Culture - Preliminary Blood - Venous No growth after 48 hours. 07/07/25 11:01 Blood Culture - Preliminary Blood - Venous No growth after 48 hours. Discharge Plan Discharge Anticipated Discharge Date/Time: 07/10/25 14:41 Patient Disposition: Home, Self-Care Discharge Diagnosis: COPD exacerbation COVID-19 Pneumonia Acute kidney injury Referrals: Marilu Reynoso FNP [Primary Care Provider, Medical] - 1 Week Discharge Medications: New benzonatate 100 mg Capsule 100 mg PO TID PRN (Reason: Cough) Qty: 15 0RF nicotine 7 mg/24 hr Patch 24 Hour 7 mg transdermal DAILY Qty: 7 0RF dextromethorphan-guaifenesin 10-200 mg/5 mL liquid 10 ml PO BID Qty: 237 0RF methylprednisolone [Medrol (Nikko)] 4 mg tablets,dose pack 4 mg PO DAILY Qty: 21 0RF Continued levothyroxine 75 mcg tablet 1 tab PO DAILY@0600 montelukast 10 mg tablet 1 tab PO BEDTIME rosuvastatin 40 mg tablet 1 tab PO DAILY sertraline 100 mg tablet 100 mg PO DAILY famotidine 20 mg tablet 20 mg PO BID Jardiance 10 mg tablet 10 mg PO DAILY Vicks DayQuil Cold-Flu Relief 5-10-325 mg Capsule 2 cap PO Q4H PRN (Reason: Congestion) Metamucil 3.4 gram/5.4 gram powder 1 tbsp PO DAILY PRN (Reason: Constipation) Rx Instructions: mix into at least 8 oz of water or juice before administering quetiapine 200 mg tablet 200 mg PO BEDTIME cyanocobalamin (vitamin B-12) 1,000 mcg tablet 2,000 mcg PO DAILY aspirin 81 mg tablet,delayed release (DR/EC) 81 mg PO DAILY albuterol sulfate [Ventolin HFA] 90 mcg/actuation HFA aerosol inhaler 2 puff INHALATION Q6H PRN (Reason: Shortness Of Breath Or Wheezing) insulin lispro 100 unit/mL insulin pen 1 sliding scale dose subcut TIDAC (DME) blood-glucose meter [Accu-Chek Guide Me Glucose Mtr] Misc See Rx Instructions .Route Qty: 1 0RF Rx Instructions: As directed (DME) Accutrend Glucose test strips Strip See Rx Instructions .Route Qty: 25 0RF Rx Instructions: As directed (DME) lancets [FreeStyle Lancets] 28 gauge misc See Rx Instructions .ROUTE .MEDSUPPLY Qty: 100 Rx Instructions: As directed (DME) blood-glucose meter [FreeStyle Lite Meter] Kit See Rx Instructions .ROUTE .MEDSUPPLY Qty: 1 Rx Instructions: As directed (DME) FreeStyle Lite Strips Strip See Rx Instructions .ROUTE .MEDSUPPLY Qty: 10 Rx Instructions: As directed hydroxyzine pamoate 25 mg capsule 25 mg PO BID PRN (Reason: anxiety) celecoxib [Celebrex] 200 mg capsule 200 mg PO BID 30 Days Qty: 60 3RF Changed insulin glargine [Lantus U-100 Insulin] 100 unit/mL solution 42 unit subcut BEDTIME Qty: 10 0RF gabapentin 100 mg capsule 100 mg PO DAILY Qty: 30 0RF Held olmesartan 20 mg Tablet 20 mg PO DAILY Hold Instructions: Resume on 07/18/25. metformin 500 mg tablet 500 mg PO BIDWM Hold Instructions: Resume on 07/17/25. ibuprofen 600 mg tablet 600 mg PO Q8H PRN (Reason: fever or pain) Qty: 30 0RF Hold Instructions: Resume on 07/18/25. Discontinued azithromycin 500 mg tablet 500 mg PO DAILY Discharge Orders: Discharge Order (Routine); Ordered 07/10/25 Ordered By: Luiz Banda Activity on Discharge: As tolerated Stand Alone Forms: Patient Portal Discharge page Print Language: Frisian Care Plan Goals: continue woth doxycyline for 5 days, medrol dose nikko use flutter valve and incentive spirometer Health Concerns: COPD exacerbation COVID-19 Kidney injury Plan of Treatment: continue doxycicline 100mg for 5 days, medrol dose nikko decrease gabapentin to 100mg a day until seen by primary care increased insulin basal to 42 units, continue sliding scale, keep record and take to primary care office, hold metformin until seen by primary care provider Assessment: 55-year-old female with a history of asthma/COPD, diabetes, hypertension, hyperlipidemia, recently seen in the emergency department and diagnosed to have COVID-19 who returns with ongoing shortness of breath and decreased oral intake found to have acute kidney injury. Patient improved with IV fluids as well as steroids and antibiotics. Patient Instructions: Diabetic Hyperglycemia (DC), Mediterranean Diet (DC), COVID-19 (Coronavirus Disease 2019) (DC)
== END 2025-07-10 15:30 | disposition home or self-care (01) | DRG 137 ==
LOC: HO.ED 11:47 → HO.EDOVER 13:29 → HO.S3 16:32 → HO.EDOVER 16:44 → HO.IMC 19:53
PROVIDERS: Hospitalist; Admitting Provider Physician Assistant Medical; Emergency Provider Emergency Medicine; PCP Registered Nurse; Visit Provider Student in an Organized Health Care Education/Training Program
DX: U07.1 COVID-19 (principal); N17.9 Acute kidney failure, unspecified; J45.41 Moderate persistent asthma with (acute) exacerbation; E87.1 Hypo-osmolality and hyponatremia; E87.21 Acute metabolic acidosis; J44.0 Chronic obstructive pulmonary disease with (acute) lower respiratory infection; F17.210 Nicotine dependence, cigarettes, uncomplicated; J20.9 Acute bronchitis, unspecified; Z71.6 Tobacco abuse counseling; J44.1 Chronic obstructive pulmonary disease with (acute) exacerbation; E11.65 Type 2 diabetes mellitus with hyperglycemia; E66.01 Morbid (severe) obesity due to excess calories; Z68.39 Body mass index [BMI] 39.0-39.9, adult; E03.9 Hypothyroidism, unspecified; E78.5 Hyperlipidemia, unspecified; F39 Unspecified mood [affective] disorder; Z79.4 Long term (current) use of insulin; Z79.84 Long term (current) use of oral hypoglycemic drugs; Z79.82 Long term (current) use of aspirin; Z79.890 Hormone replacement therapy; Z79.899 Other long term (current) drug therapy
CPT/HCPCS: 36415; 71045; 80048; 80076; 81001; 81003; 82803; 82947; 83605; 83615; 83690; 83735; 84100; 84145; 84484; 85025; 85379; 86140; 87040; 87086; 87449; 87637; 93005; 94640; 99285; J0456; J1644; J1956; J2919; J3475; J7120

== ENCOUNTER → 2025-07-07 10:30 | Outpatient (BNV) | payer MEDICAID, SELFPAY | PROVIDERS: Admitting Provider Physician Assistant Medical; Emergency Provider Emergency Medicine; PCP Registered Nurse; Visit Provider Internal Medicine | DX: R94.31 Abnormal electrocardiogram [ECG] [EKG] (principal); R07.9 Chest pain, unspecified | CPT/HCPCS: 93010 ==

== ENCOUNTER → 2025-07-07 11:45 | Outpatient (BNV) | payer MEDICAID, SELFPAY | PROVIDERS: Emergency Provider Emergency Medicine; PCP Registered Nurse; Visit Provider Radiology Diagnostic Radiology | DX: R05.9 Cough, unspecified (principal); R50.9 Fever, unspecified | CPT/HCPCS: 71045 ==

== ENCOUNTER → 2025-07-07 13:28 | Outpatient (BNV) | payer MEDICAID, SELFPAY | PROVIDERS: Admitting Provider Physician Assistant Medical; Emergency Provider Emergency Medicine; PCP Registered Nurse; Visit Provider Physician Assistant Medical | DX: J44.1 Chronic obstructive pulmonary disease with (acute) exacerbation (principal); N17.9 Acute kidney failure, unspecified | CPT/HCPCS: 99223; 99232; 99233 ==